=== PATIENT | male | born 1955 | race Caucasian/White ===

== ENCOUNTER → 2017-06-10 | Outpatient (CLI) | payer MEDICARE, BC ==
--- NOTE | 2017-06-10 15:04 | XR ---
EXAMINATION TYPE: XR ankle complete LT DATE OF EXAM: 06/10/2017 CLINICAL HISTORY: Left ankle pain and open wound for 1 week TECHNIQUE: Frontal, lateral and oblique images of the left ankle are obtained. COMPARISON: None. FINDINGS: There is no acute fracture/dislocation evident in the left ankle. 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 Atherosclerosis is seen of the anterior and posterior tibial arteries. 2 cortical fixation screws are present over the medial malleolus without surroundin g lucency or hardware fracture. Soft tissue undulation and diffuse tissue swelling within the medial malleolus and medial soft tissues overlying the distal tibia are seen. Cortical erosion is difficult to evaluate for areas postsurgical change of the medial malleolus is present. There is narrowing of t he tibiotalar joint space with qikz-mr-[id number] articulation of the medial talar dome creating some chond ral cystic change and sclerosis. Hindfoot instability is questioned. IMPRESSION: 1. Soft tissue swelling and superficial skin ulceration over the medial malleolus. Evaluation for cor tical irregularity and erosion as sequela of osteomyelitis is difficult to evaluate for as there is c ortical irregularity from underlying postsurgical change. Three-phase bone scan could be performed if there is concern for approximately this. 2. Medial tibiotalar complete joint space loss with sclerosis and suspected hindfoot instability. 3. 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 Evidence of atherosclerosis also m ay relate to vascular insufficiency.
== END | disposition home or self-care (01) ==
LOC: RADXRMAIN 14:24
PROVIDERS: ATTEND Family Medicine
DX: L97.321 Non-pressure chronic ulcer of left ankle limited to breakdown of skin (principal); M86.672 Other chronic osteomyelitis, left ankle and foot; M85.872 Other specified disorders of bone density and structure, left ankle and foot; I70.202 Unspecified atherosclerosis of native arteries of extremities, left leg; I77.1 Stricture of artery; M79.89 Other specified soft tissue disorders

== ENCOUNTER → 2017-06-29 | Outpatient (CLI) | payer MEDICARE, BC ==
--- NOTE | 2017-06-29 11:34 | XR ---
EXAMINATION TYPE: XR lumbar spine 2 or 3V DATE OF EXAM: 06/29/2017 COMPARISON: NONE HISTORY: 61-year-old male chronic back pain, back surgery 40 years ago. TECHNIQUE: Reviews FINDINGS: Post surgical changes of L3-S1 posterior lumbar fusion with corresponding laminectomies. Bilateral il iac vessel stents are also present. There is advanced discogenic degenerative change above the fusion at L2-L3 weighted grade 1 retrolist hesis. Prominent disc vacuum with endplate sclerosis and endplate spurring is present here. Vertebral body heights are preserved. IMPRESSION: 1. Status post L3-S1 posterior lumbar fusion with laminectomies. 2. Advanced disc/endplate degenerative change above the fusion at L2/L3 with grade 1 retrolisthesis. 3. No vertebral compression collapse.
== END ==
LOC: RADXRMAIN 10:06
PROVIDERS: ATTEND Family Medicine
DX: M43.16 Spondylolisthesis, lumbar region (principal); M51.36 Other intervertebral disc degeneration, lumbar region; Z98.1 Arthrodesis status
CPT/HCPCS: 72100

== ENCOUNTER 2017-09-30 10:59 | Day surgery (SDC) | payer MEDICARE, BC ==
[2017-09-28 16:11] VITALS: BMI 19.8
[~2017-09-30 10:59] MED LIST: ALPRAZolam 0.25 MG TAB PO PRN; ASPIRIN 325 MG TAB PO STA; SODIUM CHLORIDE 0.9% 1,000 ML in EMPTY BAG 1 BAG IV ONE
[2017-09-30] MEDS ORDERED: HYDROmorphone 1 MG/ML 1 ML SYRINGE IVP STA (11:59)
[2017-09-30] MEDS ORDERED: HYDROmorphone 1 MG/ML 1 ML SYRINGE ONE (12:00)
[2017-09-30] MEDS: MIDAZOLAM 2 MG/2 ML VIAL IVP ONE ×2 (12:48→13:54)
[2017-09-30] MEDS ORDERED: LIDOCAINE 2% INJ 20 MG/ML SQ ONE (12:54)
[2017-09-30] MEDS: HEPARIN SODIUM 1,000 UN/ML (10ML VL) IV ONE ×2 (12:57→13:37)
[2017-09-30] MEDS: fentaNYL (PF) 50 MCG/ML 2 ML AMP IV ONE ×2 (13:59→14:44)
[2017-09-30] MEDS ORDERED: HEPARIN SODIUM 1,000 UN/ML (10ML VL) IV ONE (14:39)
[2017-09-30] MEDS: NITROGLYCERIN 1000MCG/10ML SYRINGE INTRAARTER ONE ×2 (14:44→14:49)
[2017-09-30] MEDS ORDERED: niCARdipine Syringe (1,000 mcg/10 mL) INTRAARTER ONE (14:49)
[2017-09-30] MEDS ORDERED: CLOPIDOGREL 75 MG TAB PO ONE (14:51)
[2017-09-30] MEDS ORDERED: IODIXANOL 320 MG/ML 100 ML INTRAARTER ONE (14:52)
[2017-09-30] MEDS ORDERED: SODIUM CHLORIDE 0.9% 1,000 ML IV SCH (15:15)
[2017-09-30] MEDS: HYDROcodone/APAP 10-325MG 1 EACH TAB PO PRN ×2 (15:35→21:18)
--- NOTE | 2017-09-30 16:20 | LTR ---
To: Dr. David Woodson and Dr. Connie Bearden Regarding: Carmita Tineo (51) Dear Dr. Woodson and Dr. Bearden, Mr. Carmita Tineo underwent successful balloon angioplasty and stenting of the left superficial femoral artery with good angiographic results and without any complication. The patient is staying overnight and is going to be discharged home tomorrow morning. I want to thank both of your for allowing me to participate in his care. Sincerely, Hector Hoewll MD MMCAMMIE / EDWARDN: [id number] /
--- NOTE | 2017-09-30 16:42 | AN ---
ANGIOGRAPHY REPORT DATE OF SERVICE: September 30, 2017 PERFORMING PHYSICIAN: Hector Howell MD, marketing compliance manager. PROCEDURE PERFORMED: 1. Selective left [id number]-[id number]-wbkr angiogram. 2. Selective left popliteal angiogram. 3. Selective left SFA angiogram. 4. An atherectomy of the left SFA using the orbital atherectomy device "CSI.". 5. Successful balloon angioplasty of the proximal and distal left SFA. 6. Stenting of the mid left SFA using Zilver PTX stent with good angiographic results. 7. Intravascular ultrasound of the left SFA. INDICATION: This is a pleasant 61-year-old gentleman who was diagnosed with critical limb ischemia and he follows with [facility]. He underwent a peripheral angiogram which revealed occluded left SFA in the midportion. He was brought today to undergo an intervention. APPROACH: Right common femoral artery. COMPLICATION: None. LEVEL OF SEDATION: Moderate with sedation length of 2 hours. PROCEDURE DESCRIPTION: After obtaining informed consent, the patient was brought to the cardiac dye lab technician. The right common femoral artery was cannulated using micropuncture technique, the micropuncture wire passed easily. Then I placed a 6-Cambodian sheath in the right common femoral artery, which was an 11 cm sheath. After that, anticoagulation was initiated using heparin and the patient was given weight-based heparin. Continuous monitoring ACT throughout the procedure was done as well. After that I did select the left SFA using an 035 advantage wire with a 5-Cambodian rim catheter. Subsequently I did exchange my 11 cm 6-Cambodian sheath into 55 cm 6-Cambodian sheath using the Advantage wire. After that I did selective left zmhcu-frg-movs angiogram, selective left popliteal angiogram, and selective left SFA angiogram. Subsequently I did cross the chronic total occlusion of the mid left SFA using 014 wire with the backup support of 014 catheter. After that, I did exchange my 014 wire into an 014 ViperWire preparing for rotational atherectomy using the orbital atherectomy device from [employer]. I did 3 runs of rotational atherectomy in the mid, distal, and proximal SFA. I did the atherectomy on the low, medium, and high speeds. After that I did balloon angioplasty of the left SFA using initially 4-0 and then 5-0 AngioSculpt balloon. The following angiogram revealed significant dissection involving the mid left SFA which I documented that using intravascular ultrasound. I decided to stent that segment so I did deploy two Zilver PTX stent. The 1st stent was 7 0 x 120 and the second stent was 7 0 x 80 mm stents. Both stents were deployed under ultrasound guidance, under fluoro guidance and I post dilated the stent using 6 mm balloon. The following angiogram of the stented segment showed good angiographic results. For the distal left SFA, I did balloon angioplasty using a 5 mm AngioSculpt balloon and the following angiogram showed good angiographic results with almost 0 residual disease. For the proximal left SFA including the ostium after balloon angioplasty, the following angiogram showed residual disease about 30-40% and that disease involving the ostial left SFA. Also the angiogram showed severe disease involving below the knee including the AT and PT, but the flow was definitely better compared to before. After that, the procedure was completed and I did exchange my 55 cm 6-Cambodian sheath into 11 cm 6-Cambodian sheath using a 035 advantage wire. At that point, the procedure was completed without any complication. POSTPROCEDURE MANAGEMENT: 1. Surveillance Doppler of the left SFA including the proximal and ostial left SFA. 2. If the wound is not healing in the next few weeks, I would consider proceeding with CLEAN UP WORKER of the proximal left SFA as well as of the PT. 3. Dual anti-platelet therapy. 4. Follow up with the patient. MMODL / IJN: [id number] /
[2017-09-30] MEDS ORDERED: ATROPINE SULFATE 0.1 MG/ML 10ML SYRINGE ONE (19:28)
[2017-09-30] MEDS ORDERED: ATORVASTATIN 10 MG TAB PO SCH (21:00)
[2017-09-30] MEDS ORDERED: hydrOXYzine HCL 25 MG TAB PO SCH (21:00)
[2017-10-01] MEDS: HYDROcodone/APAP 10-325MG 1 EACH TAB PO PRN ×3 (01:22→11:51)
[2017-10-01 06:27] LABS: Anisocytosis Slight; Basophils % (A) 1 %; CHCM 32.6; Eosinophils # (A) 0.4 k/uL (0-0.7); Eosinophils % (A) 8 %; HCT 32.6 % (39.0-53.0); HDW 3.37; HGB 10.2 gm/dL (13.0-17.5); Hypochromasia Slight; Luc # (Auto) 0.08; Luc % (Auto) 1; Lymphocytes # (A) 0.7 k/uL (1.0-4.8); Lymphocytes % (A) 13 %; MCHC 31.2 g/dL (31.0-37.0); MCV 96.1 fL (80.0-100.0); Monocytes # (A) 0.2 k/uL (0-1.0); Monocytes % (A) 4 %; Neutrophils # (A) 4.1 k/uL (1.3-7.7); Neutrophils % (A) 73 %; RBC 3.39 m/uL (4.30-5.90); RDW 16.7 % (11.5-15.5); WBC 5.7 k/uL (3.8-10.6); WBC (Perox) 5.86
[2017-10-01 06:35] LABS: Anion Gap 10 mmol/L; Blood Urea Nitrogen 15 mg/dL (9-20); Calcium 9.1 mg/dL (8.4-10.2); Carbon Dioxide 13 mmol/L (22-30); Chloride 119 mmol/L (98-107); Glucose 101 mg/dL (74-99); Non-African American GFR(MDRD) >60 (>60 ml/min/1.73 sqM); Potassium 4.3 mmol/L (3.5-5.1); Sodium 142 mmol/L (137-145)
[2017-10-01] MEDS ORDERED: HYDROCORTISONE 1% OINT 28.35 GM TUBE TOPICAL SCH (09:00)
[2017-10-01] MEDS ORDERED: ASPIRIN 81 MG PO SCH (09:00)
[2017-10-01] MEDS ORDERED: DONEPEZIL 5 MG TAB PO SCH (09:00)
[2017-10-01] MEDS ORDERED: FAMOTIDINE 20 MG TAB PO SCH (09:00)
[2017-10-01] MEDS ORDERED: LORATADINE 10 MG TAB PO SCH (09:00)
[2017-10-01] MEDS ORDERED: NON-FORMULARY DRUG (Flaxseed Oil [Omega-3 Flaxseed Oil] 1,000 MG) PO SCH (09:00)
[2017-10-01] MEDS ORDERED: [UNRECOGNIZED DRUG - OTHER] TOPICAL SCH (09:00)
[2017-10-01] MEDS ORDERED: MELOXICAM 7.5 MG TAB PO SCH (09:00)
[2017-10-01] MEDS ORDERED: CITALOPRAM HYDROBROMIDE 20 MG TAB PO SCH (09:00)
[2017-10-01] MEDS ORDERED: LISINOPRIL 10 MG TAB PO SCH (09:00)
[2017-10-01] MEDS ORDERED: CLOPIDOGREL 75 MG TAB PO SCH (09:00)
[2017-10-01] MEDS ORDERED: CALCIPOTRIENE TOPICAL SCH (09:00)
[2017-10-01] MEDS ORDERED: ALLOPURINOL 300 MG TAB PO SCH (09:00)
[2017-10-01 09:37] VITALS: TEMP 96.9
[2017-10-01 11:30] VITALS: BP 143/67; PULSE 61; RESP 20
--- NOTE | 2017-10-02 22:53 | DS ---
DISCHARGE SUMMARY DATE OF ADMISSION: September 30, 2017. DATE OF DISCHARGE: October 01, 2017 BRIEF HISTORY: This is a pleasant 61-year-old gentleman who was having critical limb ischemia involving the left foot. A few weeks ago, he underwent a peripheral angiogram which revealed subtotally occluded left SFA. He was admitted to the hospital yesterday and underwent atherectomy, balloon angioplasty, and stenting of the left SFA with good angiographic results and without any complication. On follow up with the patient the following day, he is doing good and he is asymptomatic. He denies having any chest pain or discomfort or difficulty breathing. The patient is going to be discharged home on dual anti-platelet therapy and I will follow up with the patient in the office next week. MMODL / IJN: [id number] /
--- NOTE | 2017-10-06 08:50 | IR ---
Fluoroscopy HISTORY: Peripheral vascular occlusive disease 32.4 minutes fluoroscopy time supplied to the referring clinician. 1975 intraoperative C-arm images document the procedure. See dictated report from cardiology.
== END 2017-10-01 12:04 | disposition home or self-care (01) ==
LOC: CATHCVL 10:59 → 6SEL 16:27 → CATHCVL 10-01 12:04
PROVIDERS: ATTEND Internal Medicine Interventional Cardiology
DX: I70.213 Atherosclerosis of native arteries of extremities with intermittent claudication, bilateral legs (principal); Z95.820 Peripheral vascular angioplasty status with implants and grafts; E78.2 Mixed hyperlipidemia; Z95.5 Presence of coronary angioplasty implant and graft; Z87.891 Personal history of nicotine dependence; A49.02 Methicillin resistant Staphylococcus aureus infection, unspecified site; M06.9 Rheumatoid arthritis, unspecified; I10 Essential (primary) hypertension; Z79.02 Long term (current) use of antithrombotics/antiplatelets; Z79.82 Long term (current) use of aspirin; Z79.899 Other long term (current) drug therapy
CPT/HCPCS: 37227; 37252; 80048; 85025; C1894 ×2; C1714; C1769 ×6; C1725 ×3; C1753; C1874 ×2; J2001; J2250; Q9967; J3010; J1644; J1170

== ENCOUNTER → 2017-11-16 | Outpatient (CLI) | payer MEDICARE, BC ==
[2017-11-12 13:30] VITALS: BMI 19.2
[2017-11-16 13:22] VITALS: BP 121/53; PULSE 74; RESP 16; TEMP 97.4
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
== END | disposition home or self-care (01) ==
LOC: PNWHC3 12:43
PROVIDERS: ATTEND Specialist
DX: G89.29 Other chronic pain (principal); M54.5 Low back pain; M96.1 Postlaminectomy syndrome, not elsewhere classified; M47.816 Spondylosis without myelopathy or radiculopathy, lumbar region; M46.86 Other specified inflammatory spondylopathies, lumbar region; J44.9 Chronic obstructive pulmonary disease, unspecified; K21.9 Gastro-esophageal reflux disease without esophagitis; M19.90 Unspecified osteoarthritis, unspecified site; M06.9 Rheumatoid arthritis, unspecified; F17.200 Nicotine dependence, unspecified, uncomplicated; M10.9 Gout, unspecified; I10 Essential (primary) hypertension; I25.10 Atherosclerotic heart disease of native coronary artery without angina pectoris; Z98.1 Arthrodesis status; Z79.891 Long term (current) use of opiate analgesic; Z86.718 Personal history of other venous thrombosis and embolism; Z98.890 Other specified postprocedural states; Z95.5 Presence of coronary angioplasty implant and graft; Z79.82 Long term (current) use of aspirin; Z79.899 Other long term (current) drug therapy; Z79.02 Long term (current) use of antithrombotics/antiplatelets
CPT/HCPCS: 99211

== ENCOUNTER → 2017-12-01 | Outpatient (CLI) | payer MEDICARE ==
[2017-12-01 11:22] LABS: Anion Gap 13 mmol/L; Blood Urea Nitrogen 19 mg/dL (9-20); Carbon Dioxide 17 mmol/L (22-30); Chloride 111 mmol/L (98-107); Potassium 4.7 mmol/L (3.5-5.1); Sodium 141 mmol/L (137-145)
[2017-12-01 11:47] LABS: HCT 33.6 % (39.0-53.0); HGB 11.1 gm/dL (13.0-17.5); Hypochromasia Slight; MCH 32.5 pg (25.0-35.0); MCHC 32.9 g/dL (31.0-37.0); MCV 98.7 fL (80.0-100.0); Macrocytosis Slight; Mean Platelet Volume 6.8; Platelet Count 325 k/uL (150-450); RDW 15.3 % (11.5-15.5)
== END | disposition home or self-care (01) ==
LOC: LABPAT 10:33
PROVIDERS: ATTEND Internal Medicine Interventional Cardiology
DX: Z01.812 Encounter for preprocedural laboratory examination (principal); I73.9 Peripheral vascular disease, unspecified
CPT/HCPCS: 36415; 80051; 82565; 84520; 85027

== ENCOUNTER → 2017-12-02 | Day surgery (SDC) | payer BC, MEDICARE ==
[2017-12-01 08:31] VITALS: BMI 19.8
[~2017-12-02] MED LIST changes: -ALPRAZolam 0.25 MG TAB PO PRN; -ASPIRIN 325 MG TAB PO STA; +HYDROcodone/APAP 10-325MG 1 EACH TAB PO ONE
[2017-12-02 15:40] VITALS: BP 110/56
== END ==
LOC: CATHCVL 12:48
PROVIDERS: ATTEND Internal Medicine Interventional Cardiology
DX: I73.9 Peripheral vascular disease, unspecified (principal); Z53.9 Procedure and treatment not carried out, unspecified reason

== ENCOUNTER 2017-12-09 09:57 | Day surgery (SDC) | payer MEDICARE ==
[2017-12-07 10:34] VITALS: BMI 19.8
[~2017-12-09 09:57] MED LIST changes: +ALPRAZolam 0.25 MG TAB PO PRN; -HYDROcodone/APAP 10-325MG 1 EACH TAB PO ONE
[2017-12-09] MEDS ORDERED: LIDOCAINE 2% INJ 20 MG/ML SQ ONE (12:59)
[2017-12-09] MEDS: MORPHINE SULFATE 4 MG/ML SYRINGE IVP ONE ×2 (13:00→13:17)
[2017-12-09] MEDS: MIDAZOLAM 2 MG/2 ML VIAL IVP ONE ×2 (13:01→14:14)
[2017-12-09] MEDS: HEPARIN SODIUM 1,000 UN/ML (10ML VL) IV ONE ×2 (13:04→13:55)
[2017-12-09] MEDS: fentaNYL (PF) 50 MCG/ML 2 ML AMP IVP ONE ×3 (13:54→14:26)
[2017-12-09] MEDS: NITROGLYCERIN 1000MCG/10ML SYRINGE INTRAARTER ONE ×4 (14:07→14:29)
[2017-12-09] MEDS: niCARdipine Syringe (1,000 mcg/10 mL) INTRAARTER ONE ×2 (14:11→14:26)
[2017-12-09] MEDS ORDERED: CLOPIDOGREL 75 MG TAB PO ONE (14:54)
[2017-12-09] MEDS ORDERED: IODIXANOL 320 MG/ML 100 ML INTRAARTER ONE (14:58)
[2017-12-09] MEDS ORDERED: SODIUM CHLORIDE 0.9% 1,000 ML IV SCH (15:15)
[2017-12-09] MEDS: HYDROcodone/APAP 10-325MG 1 EACH TAB PO PRN ×2 (15:45→21:14)
--- NOTE | 2017-12-09 16:57 | LTR ---
December 09, 2017. Dear Dr. Woodson: Mr. Carmita Tineo underwent successful balloon angioplasty of the left femoral artery and left posterior tibial artery with good angiographic results and without any complication. Thank you for allowing me to participate in his care and please do not hesitate to call if you have any question or concern. MMODL / IJN: [id number] /
--- NOTE | 2017-12-09 17:00 | AN ---
ANGIOGRAPHY REPORT DATE OF SERVICE: December 09, 2008 PERFORMING PHYSICIAN: Hector Howell MD, flexible shaft winder. PROCEDURE PERFORMED: 1. Selective left csntq-iyq-qcfy angiogram. 2. Selective left popliteal angiogram. 3. Selective left SFA angiogram. 4. Selective left posterior tibial angiogram. 5. An atherectomy of the left posterior tibial artery using the orbital atherectomy device from [employer]. 6. Successful balloon angioplasty of the left posterior tibial artery using 2.5 x 200 mm balloon with good angiographic results. 7. Successful stenting of the left SFA using a 7.0 x 60 mm Zilver PTX with good angiographic results. INDICATION: This is a pleasant 61-year-old gentleman who is known to have peripheral arterial disease and known to have stenting of the left iliac and left SFA was struggling with critical limb ischemia and nonhealing ulcer involving the left heel. He sees Dr. Bearden at the wound clinic. I opened the left SFA on him and the ulcer was healing slowly but did not heal completely. In view of that, we decided to pursue with an intervention on the left posterior tibial. APPROACH: Right common femoral artery. COMPLICATION: None. LEVEL OF SEDATION: Moderate with sedation length of 1 hour and 51 minutes. PROCEDURE DESCRIPTION: After obtaining informed consent, the patient was brought to the cardiac clinical laboratory scientist. The right common femoral artery was cannulated using micropuncture technique, the micropuncture wire passed easily then I placed a 6-Rwandan sheath in the right common femoral artery. After that anticoagulation was initiated using heparin and the patient was given a weight-based heparin with continuous monitoring the ACT throughout the procedure. Subsequently, I did select the left SFA using a 5-Rwandan rim catheter with the backup support of Advantage wire. After that, I did exchange my 11 cm 6-Rwandan sheath into 55 cm 6-Rwandan sheath using the Advantage wire. The tip of the sheath was positioned in the left common femoral artery. Subsequently I did selective left pxcqg-mbv-vohq angiogram, selective left popliteal angiogram, and selective left SFA angiogram. After that, I did decide to intervene on the left posterior tibial artery. Please see a separate paragraph for that. Then I did intervene on the left SFA. Please see selected separate paragraph for that. INFORMATION SECURITY RISK ANALYST OF THE LEFT POSTERIOR TIBIAL ARTERY: I did wire the left posterior tibial artery using a 014 wire and then I did exchange my 014 wire into the ViperWire preparing for orbital atherectomy using a 14 CXI catheter. After that, I did multiple runs of orbital atherectomy of the left posterior tibial artery. Then I did balloon angioplasty using 2.5 x 200 mm balloon will the whole posterior tibial artery distally, in the mid, and proximally was ballooned. The following angiogram showed good angiographic results. For the left SFA, I did balloon angioplasty using 6 mm balloon and there was dissection involving the proximal left SFA which I decided to cover with a stent so I did deploy 7.0 x 60 mm Zilver PTX where the stent was positioned under fluoroscopy guidance and deployed under fluoroscopy guidance as well. After that, I ballooned the stent using 6 mm balloon. The following angiogram showed good angiographic results. The procedure was completed without any complication. POSTPROCEDURE MANAGEMENT: 1. Dual anti-platelet therapy. 2. Risk factors modifications. 3. Follow up with the patient. BERENICE / SATISH: [id number] /
[2017-12-09] MEDS ORDERED: ATROPINE SULFATE 0.1 MG/ML 10ML SYRINGE ONE (18:15)
[2017-12-09] MEDS ORDERED: MORPHINE SULFATE 4 MG/ML SYRINGE IVP STA (18:42)
[2017-12-09] MEDS ORDERED: hydrOXYzine HCL 25 MG TAB PO SCH (21:00)
[2017-12-10] MEDS: HYDROcodone/APAP 10-325MG 1 EACH TAB PO PRN ×2 (02:30→08:56)
[2017-12-10] MEDS ORDERED: MORPHINE SULFATE 4 MG/ML SYRINGE IVP ONE (04:36)
[2017-12-10 04:51] VITALS: RESP 18
[2017-12-10] MEDS ORDERED: CITALOPRAM HYDROBROMIDE 20 MG TAB PO SCH (09:00)
[2017-12-10] MEDS ORDERED: CALCIPOTRIENE TOPICAL SCH (09:00)
[2017-12-10] MEDS ORDERED: DONEPEZIL 5 MG TAB PO SCH (09:00)
[2017-12-10] MEDS ORDERED: FAMOTIDINE 20 MG TAB PO SCH (09:00)
[2017-12-10] MEDS ORDERED: ALLOPURINOL 300 MG TAB PO SCH (09:00)
[2017-12-10] MEDS ORDERED: MELOXICAM 7.5 MG TAB PO SCH (09:00)
[2017-12-10] MEDS ORDERED: LORATADINE 10 MG TAB PO SCH (09:00)
[2017-12-10] MEDS ORDERED: CLOPIDOGREL 75 MG TAB PO SCH (09:00)
[2017-12-10] MEDS ORDERED: ASPIRIN 81 MG PO SCH (09:00)
[2017-12-10] MEDS ORDERED: NON-FORMULARY DRUG (Flaxseed Oil [Omega-3 Flaxseed Oil] 1,000 MG) PO SCH (09:00)
[2017-12-10] MEDS ORDERED: LISINOPRIL 10 MG TAB PO SCH (09:00)
[2017-12-10] MEDS ORDERED: BETAMETHASONE TOPICAL SCH (09:00)
[2017-12-10 09:30] VITALS: BP 125/58; PULSE 88; TEMP 98.5
--- NOTE | 2017-12-10 10:13 | IR ---
EXAMINATION TYPE: IR stent intravas non coronary DATE OF EXAM: 12/09/2017 CLINICAL HISTORY: Left leg pain. Peripheral vascular disease. TECHNIQUE: Fluoroscopy. COMPARISON: None. FINDINGS: Fluoroscopic guidance was provided during lower extremity angiogram with stent insertion p rocedure performed by Dr. Howell. A total of 38.5 minutes of fluoroscopic time was utilized during the procedure and 16 cine runs are acquired. Please refer to procedure note for further details as I was not present nor performed procedure. IMPRESSION: As Above.
--- NOTE | 2017-12-10 13:16 | DS ---
DISCHARGE SUMMARY DATE OF ADMISSION: 12/09/2017. DATE OF DISCHARGE: 12/10/2017 BRIEF HISTORY: This is a pleasant 61-year-old gentleman who was admitted to the hospital yesterday and underwent successful CLINICAL MICROBIOLOGIST of the left posterior tibial artery along with successful balloon angioplasty and stenting of the left SFA. The procedure was performed from the right groin, which is soft and nontender and without any bruises. The patient is going to be discharged home on dual anti-platelet therapy and I will follow up with the patient in the office as an outpatient. MMODL / IJN: [id number] /
[2017-12-10] MEDS ORDERED: ATORVASTATIN 40 MG TAB PO SCH (21:00)
--- NOTE | 2017-12-15 11:39 | CDI ---
Outpatient Documentation Clarification Form Date: 12/15/17 CDS/Tear Down Matcher Name: Chelle Robert Phone: If any questions, call Eva Hatfield Washing Machine Operator at [phone] Patient Name: Carmita Tineo Admit Date: 12/09/17 Discharge Date: 12/09/17 ATTENTION: The [facility] Coding Staff appreciate your assistance in clarifying documentation. Please respond to the clarification below the line at the bottom and electronically sign. The [facility] Coding staff will review the response and follow-up if needed. Please note: Queries are made part of the Legal Health Record. If you have any questions, please contact the Washing Machine Operator. Dear Dr. Howell In order to support the procedure, we need a more specific diagnosis for this encounter. The operative report states peripheral arterial disease. The HPI on the H&P states disease involving the left SFA and left posterior tibial. Can you please be clearer in regards to the cause and specifics of the disease? Options may include atherosclerosis and may be with our without intermittent claudication, or rest pain, or gangrene, or ulceration. Please be as specific as possible. There is also mention of ischemia and left heel ulcer and it not clear if the heel ulcer is due to the SFA /posterior tibial disease. Any clarification would be appreciated. Thank you for your kind consideration. MTDD
--- NOTE | 2018-01-05 13:51 | CDI ---
Outpatient Documentation Clarification Form Date: 01/05/18 CDS/Vessel Master Name: Chelle Robert Phone: If any questions, call Eva Hatfield Ambulance Officer at [phone] Patient Name: Carmita Tineo Admit Date: 12/09/17 Discharge Date: 12/09/17 ATTENTION: The [facility] Coding Staff appreciate your assistance in clarifying documentation. Please respond to the clarification below the line at the bottom and electronically sign. The [facility] Coding staff will review the response and follow-up if needed. Please note: Queries are made part of the Legal Health Record. If you have any questions, please contact the Ambulance Officer. Dear Dr. Howell In order to support the procedure, we need a more specific diagnosis for this encounter. The operative report states peripheral arterial disease. The HPI on the H&P states disease involving the left SFA and left posterior tibial. Can you please be clearer in regards to the cause and specifics of the disease? Options may include atherosclerosis and may be with our without intermittent claudication, or rest pain, or gangrene, or ulceration. Please be as specific as possible. There is also mention of ischemia and left heel ulcer and it not clear if the heel ulcer is due to the SFA /posterior tibial disease. Any clarification would be appreciated. Thank you for your kind consideration. MTDD
--- NOTE | 2018-01-12 15:41 | AN ---
ANGIOGRAPHY REPORT ADDENDUM: DATE OF SERVICE: 12/09/2017 The procedure was a peripheral procedure and please adjust indication to be: Critical limb ischemia with resting pain and ulceration on the left lower extremity. MMODL / IJN: [id number] /
== END 2017-12-10 09:55 | disposition home or self-care (01) ==
LOC: CATHCVL 09:57 → 6SEL 14:50 → CATHCVL 12-10 09:55
PROVIDERS: ATTEND Internal Medicine Interventional Cardiology
DX: I70.244 Atherosclerosis of native arteries of left leg with ulceration of heel and midfoot (principal); L97.429 Non-pressure chronic ulcer of left heel and midfoot with unspecified severity; B95.62 Methicillin resistant Staphylococcus aureus infection as the cause of diseases classified elsewhere; Z95.820 Peripheral vascular angioplasty status with implants and grafts; M06.9 Rheumatoid arthritis, unspecified; I25.10 Atherosclerotic heart disease of native coronary artery without angina pectoris; Z95.5 Presence of coronary angioplasty implant and graft; I42.9 Cardiomyopathy, unspecified; I10 Essential (primary) hypertension; E78.2 Mixed hyperlipidemia; F17.210 Nicotine dependence, cigarettes, uncomplicated; Z79.01 Long term (current) use of anticoagulants; Z79.1 Long term (current) use of non-steroidal anti-inflammatories (NSAID); Z79.82 Long term (current) use of aspirin; Z79.899 Other long term (current) drug therapy
CPT/HCPCS: 37227; C1894 ×2; C1769 ×5; C1725 ×2; C1714; C1874; J2001; J2250; J2270 ×2; Q9967; J3010; J1644

== ENCOUNTER → 2018-03-06 | Outpatient (CLI) | payer MEDICARE ==
--- NOTE | 2018-03-06 14:18 | MR ---
EXAMINATION TYPE: MR lumbar spine wo/w con DATE OF EXAM: 03/06/2018 COMPARISON: NONE HISTORY: Spondylosis w/o myelopathy/radiculopathy TECHNIQUE: Multiplanar, multisequence images of the lumbar spine were acquired utilizing [address] gadolinium contrast. FINDINGS: There remains a grade 1 retrolisthesis of L2 on L3. Otherwise there is stable postsurgical alignment of the lumbar spine with fixation from L3 through S1 . There is minimal height loss (less t noel 10%) of the L2 vertebral body without edema indicating a chronic compression deformity. Remainder the vertebral body heights are maintained within the lumbar spine. Conus medullaris terminates at L1 -L2. Susceptibility artifact from postsurgical change slightly limits evaluation of the lower lumbar spine. At the postsurgical levels there is absence of the posterior elements. Nonenhancing bilateral T2 hyperintense and T1 hypointense probable renal cysts are seen although the left upper pole renal lesion is more suspicious adenopathy is it is only mildly T2 hyperintense. This measures 9 mm and warrants further characterization. L1-L2: There is a very small right paracentral disc herniation superimposed upon a broad-based disc b ulge. There is no significant spinal canal stenosis or neural foraminal narrowing at this level. L2-L3: There is a small central disc herniation superimposed upon a broad-based disc bulge that in co mbination with facet arthropathy creating moderate bilateral neural foraminal narrowing and mild spin al canal stenosis. L3-L4: Postsurgical changes with partial resection of the posterior elements. Evidence of prior parti al discectomy with mild bilateral neural foraminal narrowing attributable to facet arthropathy. No sp inal canal stenosis. L4-L5: Partial discectomy has been performed. Partial surgical fusion of the L4 and L5 vertebral bodi es is seen. Evaluation of the neural foramen are limited from surrounding susceptibility artifact. Ri ght neural foramen is patent and left appears obscured. No spinal canal stenosis. L5-S1: There is a broad-based disc bulge resulting in mild bilateral neural foraminal narrowing. No s cynthia canal stenosis. Resection of the posterior elements is seen. On the subcutaneous soft tissues there is fibrosis at the level of S1 on T1 axial nonfat sat image 1 that enhances on postcontrast image 1. However this does not extend to have mass effect on the epidur al space or right S1 nerve root. IMPRESSION: 1. Persistent grade 1 retrolisthesis of L2 on L3 in comparison to the prior radiographs dated 06/29/20 17 without interval worsening. 2. Small central disc herniation at L2-3 that examination with thinner degenerative disc disease crat ing moderate bilateral neural foraminal narrowing and mild spinal canal stenosis. 3. Bilateral probable renal cysts and left upper pole renal lesion that does appear to represent a si mple cyst warranting further characterization with renal ultrasound. 4. Postsurgical changes as described above with no recurrent spinal canal stenosis. 5. No evidence of epidural fibrosis. 6. Mild chronic appearing wedge compression deformity of the L2 vertebral body with vertebral body he ight loss of less than 10%. 7. Very small right paracentral disc herniation at L1-L2 without spinal canal stenosis or neural fora nichole narrowing.
== END | disposition home or self-care (01) ==
LOC: RADMRIMAIN 10:46
PROVIDERS: ATTEND Specialist
DX: M48.061 Spinal stenosis, lumbar region without neurogenic claudication (principal); M99.73 Connective tissue and disc stenosis of intervertebral foramina of lumbar region; M51.26 Other intervertebral disc displacement, lumbar region; M43.16 Spondylolisthesis, lumbar region; M51.36 Other intervertebral disc degeneration, lumbar region; G95.89 Other specified diseases of spinal cord; G89.29 Other chronic pain
CPT/HCPCS: 82565; 72158; A9581

== ENCOUNTER → 2018-07-05 | Outpatient (CLI) | payer MEDICARE ==
[2018-07-05 13:03] LABS: HCT 38.7 % (39.0-53.0); HGB 11.9 gm/dL (13.0-17.5); Hypochromasia Moderate; MCH 28.8 pg (25.0-35.0); MCHC 30.9 g/dL (31.0-37.0); MCV 93.5 fL (80.0-100.0); Mean Platelet Volume 6.8; Platelet Count 361 k/uL (150-450); RBC 4.14 m/uL (4.30-5.90)
[2018-07-05 13:08] LABS: Anion Gap 8 mmol/L; Blood Urea Nitrogen 25 mg/dL (9-20); Carbon Dioxide 21 mmol/L (22-30); Chloride 107 mmol/L (98-107); Potassium 5.7 mmol/L (3.5-5.1); Sodium 136 mmol/L (137-145)
== END | disposition home or self-care (01) ==
LOC: LABPAT 11:22
PROVIDERS: ATTEND Internal Medicine Interventional Cardiology
DX: Z01.812 Encounter for preprocedural laboratory examination (principal); I10 Essential (primary) hypertension; E78.1 Pure hyperglyceridemia; I70.212 Atherosclerosis of native arteries of extremities with intermittent claudication, left leg
CPT/HCPCS: 36415; 80051; 82565; 84520; 85027

== ENCOUNTER → 2018-07-08 | Day surgery (SDC) | payer MEDICARE ==
[2018-07-05 11:04] VITALS: BMI 19.5
[~2018-07-08] MED LIST changes: +ASPIRIN 325 MG TAB PO STA; +HYDROcodone/APAP 10-325MG 1 EACH TAB PO PRN
[2018-07-08 07:02] VITALS: BP 139/62; PULSE 64; RESP 18; TEMP 98
== END ==
LOC: CATHCVL 06:22
PROVIDERS: ATTEND Internal Medicine Interventional Cardiology
DX: Z53.9 Procedure and treatment not carried out, unspecified reason (principal); E78.1 Pure hyperglyceridemia
CPT/HCPCS: 84132

== ENCOUNTER → 2018-07-09 | Outpatient (CLI) | payer MEDICARE ==
[2018-07-09 14:26] LABS: Anion Gap 9 mmol/L; Blood Urea Nitrogen 22 mg/dL (9-20); Calcium 9.2 mg/dL (8.4-10.2); Carbon Dioxide 19 mmol/L (22-30); Chloride 111 mmol/L (98-107); Glucose 92 mg/dL (74-99); Potassium 4.8 mmol/L (3.5-5.1); Sodium 139 mmol/L (137-145)
== END | disposition home or self-care (01) ==
LOC: LABWHC1 12:52
PROVIDERS: ATTEND Nurse Practitioner Adult Health
DX: E87.5 Hyperkalemia (principal); I10 Essential (primary) hypertension
CPT/HCPCS: 36415; 80048

== ENCOUNTER → 2018-07-29 | Outpatient (CLI) | payer MEDICARE ==
[2018-07-29 11:20] LABS: Anisocytosis Slight; HCT 38.9 % (39.0-53.0); HGB 12.1 gm/dL (13.0-17.5); Hypochromasia Slight; MCH 29.2 pg (25.0-35.0); MCV 94.2 fL (80.0-100.0); Platelet Count 272 k/uL (150-450); RBC 4.13 m/uL (4.30-5.90); RDW 16.6 % (11.5-15.5); WBC 7.7 k/uL (3.8-10.6)
[2018-07-29 11:42] LABS: Anion Gap 7 mmol/L; Blood Urea Nitrogen 24 mg/dL (9-20); Carbon Dioxide 19 mmol/L (22-30); Chloride 111 mmol/L (98-107); Potassium 4.8 mmol/L (3.5-5.1); Sodium 137 mmol/L (137-145)
== END ==
LOC: LABPAT 10:49
PROVIDERS: ATTEND Internal Medicine Interventional Cardiology
DX: Z01.812 Encounter for preprocedural laboratory examination (principal); E78.1 Pure hyperglyceridemia; I10 Essential (primary) hypertension; I70.213 Atherosclerosis of native arteries of extremities with intermittent claudication, bilateral legs
CPT/HCPCS: 36415; 80051; 82565; 84520; 85027

== ENCOUNTER 2018-08-12 10:44 | Day surgery (SDC) | payer MEDICARE ==
[~2018-08-12 10:44] MED LIST changes: +ASPIRIN 325 MG TAB PO ONE; -ASPIRIN 325 MG TAB PO STA; -HYDROcodone/APAP 10-325MG 1 EACH TAB PO PRN
[2018-08-12 11:21] VITALS: RESP 20; TEMP 97.8
[2018-08-12] MEDS ORDERED: MIDAZOLAM 2 MG/2 ML VIAL IVP ONE ×2 (12:10)
[2018-08-12] MEDS ORDERED: SODIUM CHLORIDE 0.9% 1,000 ML IV ONE (12:11)
[2018-08-12] MEDS ORDERED: LIDOCAINE 2% INJ 20 MG/ML SQ ONE (12:12)
[2018-08-12] MEDS ORDERED: IOPAMIDOL-250 100ML BTL INTRAARTER ONE (12:21)
[2018-08-12] MEDS ORDERED: IOPAMIDOL-250 50ML BTL INTRAARTER ONE (12:26)
[2018-08-12] MEDS ORDERED: SODIUM CHLORIDE 0.9% 1,000 ML IV SCH (12:30)
[2018-08-12] MEDS ORDERED: ACETAMINOPHEN IV (For NPO) 1,000 MG in EMPTY BAG 1 BAG IVPB ONE (13:21)
--- NOTE | 2018-08-12 13:33 | IR ---
EXAMINATION TYPE: IR angio abdominal w runoff DATE OF EXAM: 08/12/2018 COMPARISON: NONE HISTORY: Peripheral vascular occlusive disease. Fluoroscopy was provided to the referring clinician. See dictated report from cardiology.
[2018-08-12 18:18] VITALS: PULSE 62
[2018-08-12 18:23] VITALS: BP 140/66
--- NOTE | 2018-08-13 15:55 | AN ---
ANGIOGRAPHY REPORT ABDOMINAL AORTOGRAM AND BILATERAL LOWER EXTREMITY RUNOFF.: DATE OF SERVICE: 08/13/2018 PERFORMING PHYSICIAN: Hector Howell MD, clerk typist. PROCEDURES PERFORMED: 1. Abdominal aortogram. 2. Bilateral lower extremity runoff. 3. Selective left and right vvnby-clh-swio angiogram. INDICATION: This is a very pleasant 62-year-old gentleman who sees Dr. Key Lara in the office as an outpatient with known history of peripheral arterial disease and prior bilateral iliac stenting as well as SFA angioplasty who was struggling with critical limb ischemia of the left foot with a nonhealing ulcer. Because of that, he was brought today to undergo an abdominal aortogram and bilateral lower extremity runoff. APPROACH: Right common femoral artery. COMPLICATIONS: None. LEVEL OF SEDATION: Moderate, with a sedation length of 15 minutes. PROCEDURE DESCRIPTION: After obtaining informed consent, the patient was brought to the cardiac cathode maker. The right common femoral artery was cannulated using micropuncture technique. The micropuncture wire passed easily. Then I placed a 5-Solomon Islander sheath in the right common femoral artery. After that I did an abdominal aortogram and bilateral lower extremity runoff using a 5-[place] Islander pigtail catheter. The procedure was completed without any complication. I did selective bilateral [id number] angiogram as well. SELECTIVE PERIPHERAL ANGIOGRAM: 1. The aorta appeared to be calcified with mild disease only. 2. Common iliac arteries. The right and left common iliac arteries are angiographically normal. 3. External iliac arteries. The right and left external iliac arteries are stented, and the stents are patent. 4. Common femoral arteries. The right common femoral artery is angiographically normal. The left common femoral artery appeared to have intermediate disease only. 5. Profundae. The right and left profundae are patent. 6. SFA. The right SFA appeared to have mild disease only and the left SFA is stented in the proximal and mid portion with severe in-stent restenosis involving the proximal portion of the stent. 7. Popliteals. The right popliteal appeared to have mild disease only. The left popliteal appeared to have intermediate disease only. 8. Below the knee. There is 3-vessel runoff below the knees bilaterally. On the left side the anterior tibial is diffusely diseased up to about 90% to 95% in the mid portion. On the left side there is 3-vessel runoff below the knee. CONCLUSION: 1. Patent bilateral external iliac artery stents. 2. Intermediate disease involving the left common femoral artery. 3. Severe in-stent restenosis of the left SFA. 4. Severe and diffuse disease involving the left anterior tibial. POST-PROCEDURE MANAGEMENT: GRAVE CLEANER of the left SFA and left anterior tibial as well. MMODL / IJN: [id number] /
== END 2018-08-12 18:10 | disposition home or self-care (01) ==
LOC: CATHCVL 10:44
PROVIDERS: ATTEND Internal Medicine Interventional Cardiology
DX: I70.244 Atherosclerosis of native arteries of left leg with ulceration of heel and midfoot (principal); T82.856A Stenosis of peripheral vascular stent, initial encounter; I70.0 Atherosclerosis of aorta; L97.429 Non-pressure chronic ulcer of left heel and midfoot with unspecified severity; I10 Essential (primary) hypertension; E78.5 Hyperlipidemia, unspecified; M06.9 Rheumatoid arthritis, unspecified; I25.10 Atherosclerotic heart disease of native coronary artery without angina pectoris; I42.9 Cardiomyopathy, unspecified; E78.2 Mixed hyperlipidemia; Z86.14 Personal history of Methicillin resistant Staphylococcus aureus infection; Z95.820 Peripheral vascular angioplasty status with implants and grafts; Z95.5 Presence of coronary angioplasty implant and graft; Z79.1 Long term (current) use of non-steroidal anti-inflammatories (NSAID); Z79.02 Long term (current) use of antithrombotics/antiplatelets; Z79.82 Long term (current) use of aspirin; Z79.899 Other long term (current) drug therapy; F17.210 Nicotine dependence, cigarettes, uncomplicated
CPT/HCPCS: 36200; 75625; 75716; C1769 ×4; J2001; J2250; J0131; Q9966 ×2

== ENCOUNTER → 2018-09-22 | Outpatient (CLI) | payer MEDICARE ==
[2018-09-22 11:15] LABS: Anisocytosis Slight; HCT 42.7 % (39.0-53.0); HGB 13.4 gm/dL (13.0-17.5); Hypochromasia Slight; MCH 29.5 pg (25.0-35.0); MCHC 31.5 g/dL (31.0-37.0); MCV 93.7 fL (80.0-100.0); Platelet Count 260 k/uL (150-450); RBC 4.55 m/uL (4.30-5.90); RDW 16.8 % (11.5-15.5); WBC 7.9 k/uL (3.8-10.6)
[2018-09-22 11:40] LABS: Anion Gap 11 mmol/L; Blood Urea Nitrogen 20 mg/dL (9-20); Carbon Dioxide 22 mmol/L (22-30); Chloride 107 mmol/L (98-107); Sodium 140 mmol/L (137-145)
== END | disposition home or self-care (01) ==
LOC: LABPAT 10:46
PROVIDERS: ATTEND Internal Medicine Interventional Cardiology
DX: Z01.812 Encounter for preprocedural laboratory examination (principal); F17.200 Nicotine dependence, unspecified, uncomplicated
CPT/HCPCS: 80051; 82565; 84520; 85027

== ENCOUNTER 2018-10-06 06:37 | Day surgery (SDC) | payer MEDICARE ==
[2018-09-29 11:21] VITALS: BMI 22.6
[~2018-10-06 06:37] MED LIST changes: -ALPRAZolam 0.25 MG TAB PO PRN; -ASPIRIN 325 MG TAB PO ONE
[2018-10-06] MEDS ORDERED: ASPIRIN 325 MG TAB PO ONE (07:00)
[2018-10-06] MEDS ORDERED: MIDAZOLAM 2 MG/2 ML VIAL IV ONE ×2 (07:43→08:41)
[2018-10-06] MEDS ORDERED: LIDOCAINE 1% INJ 10MG/ML (20 ML MDV) SQ ONE (07:49)
[2018-10-06] MEDS ORDERED: fentaNYL (PF) 50 MCG/ML 2 ML AMP IV ONE (08:41)
[2018-10-06] MEDS ORDERED: CLOPIDOGREL 75 MG TAB PO ONE (08:46)
[2018-10-06] MEDS ORDERED: niCARdipine Syringe (1,000 mcg/10 mL) INTRAARTER ONE (09:11)
[2018-10-06] MEDS ORDERED: NITROGLYCERIN 1000MCG/10ML SYRINGE INTRAARTER ONE (09:11)
[2018-10-06] MEDS ORDERED: IOPAMIDOL-250 100ML BTL INTRAARTER ONE (09:23)
[2018-10-06] MEDS ORDERED: SODIUM CHLORIDE 0.9% 1,000 ML IV SCH (09:45)
[2018-10-06] MEDS: HYDROmorphone 1 MG/ML 1 ML SYRINGE IVP PRN ×3 (10:06→18:51)
[2018-10-06] MEDS: traMADol 50 MG TAB PO PRN ×3 (11:04→23:16)
--- NOTE | 2018-10-06 12:27 | LTR ---
DATE OF SERVICE: 10/06/2018 RE: Carmita Tineo Dear Dr. Woodson; . Mr. Carmita Tineo underwent successful balloon angioplasty and stenting of the left femoral artery with good angiographic results and without any complication. I want to thank you for allowing me to participate in his care and please do not hesitate to call if you have any questions or concerns. Sincerely, Hector Howell MD MMCAMMIE / EDWARDN: [id number] /
--- NOTE | 2018-10-06 12:34 | AN ---
ANGIOGRAPHY REPORT DATE OF SERVICE: 10/06/2018 PERFORMING PHYSICIAN: Hector Howell MD, Laboratory Monitor. PROCEDURE PERFORMED: 1. Selective left kezjy-mme-csvs angiogram. 2. Selective left popliteal/SFA angiogram. 3. Selective right common femoral artery angiogram. 4. An atherectomy of the left SFA and left popliteal using the TurboHawk atherectomy device with extraction of significant amount of plaque. 5. Successful stenting of the distal left SFA using 6 x 16 mm Zilver PTX drug-coated stent with an excellent angiographic results. 6. Successful balloon angioplasty of the left SFA using the 6 mm drug-coated balloon with an excellent angiographic results. 7. Intravascular ultrasound IVUS of the left SFA and left popliteal. INDICATION: This is a pleasant 62-year-old gentleman who has known history of peripheral arterial disease with history of bilateral iliac stenting and left SFA angioplasty who continues to struggle with critical limb ischemia of the left foot. He underwent a peripheral angiogram recently and that showed severe disease involving the severe in-stent restenosis of the left SFA and intermediate to severe disease involving the left popliteal. Because of that, he was brought today to undergo an intervention. APPROACH: Right common femoral artery. COMPLICATION: None. LEVEL OF SEDATION: Moderate with sedation length of 87 minutes. PROCEDURE DESCRIPTION: After obtaining an informed consent, the patient was brought to the cardiac laboratory supervisor. The right common femoral artery was cannulated using micropuncture technique, the micropuncture wire passed easily, then I placed a 6-Chilean sheath in the right common femoral artery, which was an 11 cm sheath. Subsequently, anticoagulation was initiated using heparin and the patient was given 6000 units of heparin IV with additional 3000 throughout the procedures with continuous ACT monitoring throughout the procedure as well. Subsequently, I did select the left SFA using a 5-Chilean Rim catheter with 0.035 Mccarr Advantage wire. After that, I did exchange my 11 cm 6-Chilean sheath into 55 cm 6- Chilean sheath using 0.035 Mccarr Advantage wire and the sheath was positioned in the proximal left SFA. After that, I did selective left [id number]-[id number]-[id number] angiogram, selective left popliteal/SFA angiogram. After that, I did intravascular ultrasound IVUS of the left popliteal and left SFA to assess that lesion in the left popliteal which turned to be significant. At that point, I decided to atherectomize that lesion, so I did atherectomy of the left popliteal using the TurboHawk atherectomy device with extraction of significant amount of plaque from the left popliteal. After that, I did AngioSculpt of the left SFA for that in-stent restenosis. Then I did balloon angioplasty of the both the left SFA and left popliteal using the drug-coated balloon. The following angiogram showed good angiographic results of the left SFA, but there was dissection of the left popliteal, which I decided to cover with a stent, so I deployed 6 x 60 mm Zilver PTX drug-coated stent where the stent was positioned under fluoroscopy guidance and deployed and after that, I post dilated the stent using 6 mm balloon. The following angiogram showed good angiographic results and the procedure was completed without any complication. After that, I did exchange my long sheath into short sheath. The procedure was completed without any complication. POSTPROCEDURE MANAGEMENT: 1. Dual anti-platelet therapy. 2. Risk factors modifications. 3. Follow up with the patient. BERENICE / EDWARDN: [id number] /
[2018-10-06] MEDS ORDERED: hydrOXYzine HCL 25 MG TAB PO SCH (21:00)
[2018-10-07] MEDS: HYDROmorphone 1 MG/ML 1 ML SYRINGE IVP PRN (03:57)
[2018-10-07 07:00] LABS: Anisocytosis Slight; Basophils # (A) 0.1 k/uL (0-0.2); Basophils % (A) 1 %; Eosinophils # (A) 0.3 k/uL (0-0.7); Eosinophils % (A) 6 %; HCT 37.9 % (39.0-53.0); Hypochromasia Slight; Lymphocytes # (A) 0.8 k/uL (1.0-4.8); Lymphocytes % (A) 15 %; MCH 29.4 pg (25.0-35.0); MCHC 31.6 g/dL (31.0-37.0); MCV 93.2 fL (80.0-100.0); Monocytes # (A) 0.4 k/uL (0-1.0); Monocytes % (A) 6 %; Neutrophils # (A) 3.8 k/uL (1.3-7.7); Neutrophils % (A) 69 %; Platelet Count 219 k/uL (150-450); RBC 4.06 m/uL (4.30-5.90); RDW 16.3 % (11.5-15.5); WBC 5.5 k/uL (3.8-10.6)
[2018-10-07 07:15] LABS: Anion Gap 5 mmol/L; Blood Urea Nitrogen 18 mg/dL (9-20); Carbon Dioxide 19 mmol/L (22-30); Chloride 115 mmol/L (98-107); Glucose 102 mg/dL (74-99); Potassium 4.7 mmol/L (3.5-5.1); Sodium 139 mmol/L (137-145)
[2018-10-07] MEDS: traMADol 50 MG TAB PO PRN (08:20)
[2018-10-07] MEDS ORDERED: LISINOPRIL 10 MG TAB PO SCH (09:00)
[2018-10-07] MEDS ORDERED: FAMOTIDINE 20 MG TAB PO SCH (09:00)
[2018-10-07] MEDS ORDERED: ALLOPURINOL 300 MG TAB PO SCH (09:00)
[2018-10-07] MEDS ORDERED: LORATADINE 10 MG TAB PO SCH (09:00)
[2018-10-07] MEDS ORDERED: DONEPEZIL 5 MG TAB PO SCH (09:00)
[2018-10-07] MEDS ORDERED: CLOPIDOGREL 75 MG TAB PO SCH (09:00)
[2018-10-07] MEDS ORDERED: ASPIRIN 81 MG PO SCH (09:00)
[2018-10-07] MEDS ORDERED: CITALOPRAM HYDROBROMIDE 20 MG TAB PO SCH (09:00)
--- NOTE | 2018-10-07 10:17 | IR ---
Fluoroscopy HISTORY: Pain in leg 17.3 minutes fluoroscopy time supplied to the referring clinician. 770 intraoperative C-arm images d ocument the procedure. See dictated report from cardiology.
[2018-10-07 11:50] VITALS: BP 126/70; PULSE 61; RESP 16; TEMP 98.2
--- NOTE | 2018-10-07 17:38 | P.DS ---
Providers Date of admission: 10/06/2018 Attending physician: Hector Howell Primary care physician: David Woodson [facility] Course: This is a pleasant 62-year-old gentleman with known history of peripheral arterial disease and prior bilateral iliac stenting as well as left SFA stenting who continues to struggle was a critical limb ischemia and nonhealing ulcer involving the left heel. The patient was admitted to the hospital yesterday and underwent successful balloon angioplasty and stenting of the left SFA with a good angiographic results and without any complication. The procedure was performed from the right groin which is soft and nontender and without any bruises. He is going to be discharged home on dual antiplatelet therapy along with a statin and I will follow-up with the patient next week in the office. Patient Condition at Discharge: Stable Plan - Discharge Summary Discharge Rx Participant: Yes New Discharge Prescriptions: New Atorvastatin [Lipitor] 20 mg PO HS #90 tab Continue Citalopram Hydrobromide [Citalopram HBr] 20 mg PO QAM Lisinopril [Zestril] 10 mg PO QAM Aspirin [Adult Low Dose Aspirin EC] 81 mg PO DAILY Clopidogrel [Plavix] 75 mg PO QAM Allopurinol [Zyloprim] 300 mg PO DAILY hydrOXYzine HCL 25 mg PO HS Famotidine [Pepcid] 20 mg PO QAM traMADol HCL [Ultram] 100 mg PO Q6HR PRN PRN Reason: Pain Cetirizine HCl [Zyrtec] 10 mg PO DAILY Donepezil HCl [Aricept] 5 mg PO DAILY Discharge Medication List Citalopram Hydrobromide [Citalopram HBr] 20 mg PO QAM 04/05/14 [History] Lisinopril [Zestril] 10 mg PO QAM 09/14/14 [History] Aspirin [Adult Low Dose Aspirin EC] 81 mg PO DAILY 09/17/17 [History] Allopurinol [Zyloprim] 300 mg PO DAILY 09/18/17 [History] Clopidogrel [Plavix] 75 mg PO QAM 09/18/17 [History] hydrOXYzine HCL 25 mg PO HS 09/18/17 [History] Famotidine [Pepcid] 20 mg PO QAM 07/12/18 [History] Cetirizine HCl [Zyrtec] 10 mg PO DAILY 09/29/18 [History] traMADol HCL [Ultram] 100 mg PO Q6HR PRN 09/29/18 [History] Donepezil HCl [Aricept] 5 mg PO DAILY 10/06/18 [History] Atorvastatin [Lipitor] 20 mg PO HS #90 tab 10/07/18 [Rx] Follow up Appointment(s)/Referral(s): Hector Howell MD [STAFF PHYSICIAN] - 10/14/18 3:00 pm Patient Instructions/Handouts: How to Stop Smoking (DC), Peripheral Vascular Angioplasty (DC) Discharge Disposition: HOME SELF-CARE
[2018-10-07] MEDS ORDERED: ATORVASTATIN 20 MG TAB PO SCH (21:00)
== END 2018-10-07 12:44 | disposition home or self-care (01) ==
LOC: CATHCVL 06:37 → 3SCARD 11:45 → CATHCVL 10-07 12:44
PROVIDERS: ATTEND Internal Medicine Interventional Cardiology
DX: M06.9 Rheumatoid arthritis, unspecified (principal); I10 Essential (primary) hypertension; E78.5 Hyperlipidemia, unspecified; F17.210 Nicotine dependence, cigarettes, uncomplicated; Z95.5 Presence of coronary angioplasty implant and graft; Z79.2 Long term (current) use of antibiotics; Z79.1 Long term (current) use of non-steroidal anti-inflammatories (NSAID); Z79.02 Long term (current) use of antithrombotics/antiplatelets; Z79.82 Long term (current) use of aspirin; Z79.899 Other long term (current) drug therapy
CPT/HCPCS: 37227; 37252; 80048; 85025; C1894 ×2; C1725 ×2; C1769 ×4; C1714; C1753; C1874; C2623 ×2; J2250; J2001; J3010; J1170 ×2; J1644; Q9966

== ENCOUNTER 2019-05-17 14:00 | Inpatient (IN) | payer MEDICARE ==
[2019-05-17] MEDS ORDERED: IPRATROPIUM-ALBUTEROL 3 ML NEB INHALATION STA (14:40)
[2019-05-17] MEDS ORDERED: IBUPROFEN 600 MG TAB PO STA (14:40)
[2019-05-17] MEDS: IPRATROPIUM-ALBUTEROL 3 ML NEB INHALATION STA ×2 (14:44→16:58)
--- NOTE | 2019-05-17 14:45 | ED ---
General Adult HPI - General Chief complaint: Recheck/Abnormal Lab/Rx Stated complaint: TRAVIS Time Seen by Provider: 05/17/19 14:10 Source: family, RN notes reviewed Mode of arrival: wheelchair Limitations: no limitations - History of Present Illness Initial comments: This is a 63-year-old male who presents emergency Department with a past medical history significant for psoriasis and smoking. Patient comes into the emergency department today because he states over the last month his psoriasis gotten considerably worse and he is having multiple episodes of the chills he states that the redness on his chest abdomen back and extremities is worse and it is ever been. Patient states she recently tried some steroids that his primary medical care doctor gave him but they have not helped. Patient states the whole body just kind of aches at a constant level. Patient states she also little short of breath but he is a smoker and states he always has a little bit of a wheeze. Patient denies chest pain or palpitations. Patient denies any actual fever that he knows of. Patient denies a cough per patient denies abdominal pain patient denies nausea vomiting diarrhea. Patient denies any lesions that appear to be infected. - Related Data Home Medications Medication Instructions Recorded Confirmed Citalopram Hydrobromide 20 mg PO QAM 04/05/14 05/17/19 [Citalopram HBr] Lisinopril [Zestril] 10 mg PO QAM 09/14/14 05/17/19 Aspirin [Adult Low Dose Aspirin EC] 81 mg PO DAILY 09/17/17 05/17/19 Allopurinol [Zyloprim] 300 mg PO DAILY 09/18/17 05/17/19 Clopidogrel [Plavix] 75 mg PO QAM 09/18/17 05/17/19 hydrOXYzine HCL 25 mg PO HS 09/18/17 05/17/19 Famotidine [Pepcid] 20 mg PO QAM 07/12/18 05/17/19 Cetirizine HCl [Zyrtec] 10 mg PO DAILY 09/29/18 05/17/19 traMADol HCL [Ultram] 50 mg PO Q12H 09/29/18 05/17/19 Donepezil HCl [Aricept] 5 mg PO DAILY 10/06/18 05/17/19 Adalimumab [Humira Crohn's] 40 mg SQ TH 05/17/19 05/17/19 Albuterol Sulfate [Proair Hfa] 1 - 2 puff INHALATION RT-Q6H 05/17/19 05/17/19 Flaxseed Oil 1200mg 1,200 mg PO DAILY 05/17/19 05/17/19 Gabapentin [Neurontin] 300 mg PO TID 05/17/19 05/17/19 Allergies Allergy/AdvReac Type Severity Reaction Status Date / Time No Known Allergies Allergy Verified 05/17/19 14:54 Review of Systems ROS Statement: Those systems with pertinent positive or pertinent negative responses have been documented in the HPI. ROS Other: All systems not noted in ROS Statement are negative. Past Medical History Past Medical History: Coronary Artery Disease (CAD), COPD, Deep Vein Thrombosis (DVT), GERD/Reflux, Hypertension, Osteoarthritis (OA), Rheumatoid Arthritis (RA), Skin Disorder Additional Past Medical History / Comment(s): Multiple dislocations of left total hip, psoriasis, Gout, Hx of DVT both legs. 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 Left Hip replacement, cataract eye sx. lt ankle has screws. LAPARASCOPIC SHANTANU FUNDOPLASTY. 10/06/2018 LSFA STENT AND ARTHRECTOMY Past Anesthesia/Blood Transfusion Reactions: Previous Problems w/ Anesthesia Additional Past Anesthesia/Blood Transfusion Reaction / Comment(s): "HAS CONFUSION AND DISORIENTATION POST ANESTHESIA " on occasion Date of Last Stent Placement:: 2012 Past Psychological History: No Psychological Hx Reported Smoking Status: Current every day smoker Past Alcohol Use History: None Reported Past Drug Use History: None Reported - Past Family History Mother Family Medical History: No Reported History Additional Family Medical History / Comment(s): Father History Unknown: Yes Family Medical History: Unable to Obtain General Exam - General Exam Comments Initial Comments: GENERAL: Patient is well-developed and well-nourished. Patient is nontoxic and well- hydrated and is in mild distress. ENT: Neck is soft and supple. No significant lymphadenopathy is noted. Oropharynx is clear. Moist mucous membranes. Neck has full range of motion without eliciting any pain. EYES: The sclera were anicteric and conjunctiva were pink and moist. Extraocular movements were intact and pupils were equal round and reactive to light. Eyelids were unremarkable. PULMONARY: Patient has expiratory wheezing bilaterally CARDIOVASCULAR: There is a regular rate and rhythm without any murmurs gallops or rubs. Femoral pulses are equal bilaterally ABDOMEN: Soft and nontender with normal bowel sounds. No palpable organomegaly was noted. There is no palpable pulsatile mass. SKIN: Skin is mildly erythematous just about everywhere there are some excoriations on both legs do not appear to be infected but appear to be from itching. Skin is excessively dry everywhere. NEUROLOGIC: Patient is alert and oriented x3. Cranial nerves II through XII are grossly intact. Motor and sensory are also intact. Normal speech, volume and content. Symmetrical smile. MUSCULOSKELETAL: Normal extremities with adequate strength and full range of motion. Scant edema in the left leg. No calf tenderness. LYMPHATICS: No significant lymphadenopathy is noted PSYCHIATRIC: Normal psychiatric evaluation. Limitations: no limitations Course Vital Signs 05/17/19 05/17/19 05/17/19 14:07 14:41 14:50 Temperature 97.9 F Pulse Rate 80 82 86 Respiratory 18 Rate Blood Pressure 117/70 O2 Sat by Pulse 96 Oximetry 05/17/19 15:05 Temperature Pulse Rate 79 Respiratory 18 Rate Blood Pressure 124/78 O2 Sat by Pulse 96 Oximetry Medical Decision Making - Medical Decision Making EKG shows normal sinus rhythm at 77 bpm AR interval is on a 32 QRS is under 40 QT interval 436 QTC is 493. Patient's EKG shows T-wave inversions in II, III, and F aVF as well as some ST segment depression in leads V3 through V6. She also has a right bundle branch block. Chest x-ray shows no acute abnormality. I spoke with Dr. Woodson and he agreed to admit the patient. I saw the patient on steroids so I put the patient started and repeated cardiac enzymes. I wrote admitting orders. - Lab Data Result diagrams: 05/17/19 14:51 05/17/19 14:51 Lab Results 05/17/19 05/17/19 05/17/19 Range/Units 14:51 14:51 14:51 WBC 6.7 (3.8-10.6) k/uL RBC 3.86 L (4.30-5.90) m/uL Hgb 10.7 L (13.0-17.5) gm/dL Hct 35.6 L (39.0-53.0) % MCV 92.3 (80.0-100.0) fL MCH 27.8 (25.0-35.0) pg MCHC 30.2 L (31.0-37.0) g/dL RDW 17.2 H (11.5-15.5) % Plt Count 283 (150-450) k/uL Neutrophils % 79 % Lymphocytes % 11 % Monocytes % 5 % Eosinophils % 3 % Basophils % 1 % Neutrophils # 5.4 (1.3-7.7) k/uL Lymphocytes # 0.7 L (1.0-4.8) k/uL Monocytes # 0.3 (0-1.0) k/uL Eosinophils # 0.2 (0-0.7) k/uL Basophils # 0.1 (0-0.2) k/uL Hypochromasia Moderate Anisocytosis Slight PT (9.0-12.0) sec INR (<1.2) APTT (22.0-30.0) sec Sodium 140 (137-145) mmol/L Potassium 5.2 H (3.5-5.1) mmol/L Chloride 109 H (98-107) mmol/L Carbon Dioxide 22 (22-30) mmol/L Anion Gap 9 mmol/L BUN 16 (9-20) mg/dL Creatinine 0.88 (0.66-1.25) mg/dL Est GFR (CKD-EPI)AfAm >90 (>60 ml/min/1.73 sqM) Est GFR (CKD-EPI)NonAf >90 (>60 ml/min/1.73 sqM) Glucose 92 (74-99) mg/dL Plasma Lactic Acid Juan 1.8 (0.7-2.0) mmol/L Calcium 8.7 (8.4-10.2) mg/dL Total Bilirubin 0.3 (0.2-1.3) mg/dL AST 24 (17-59) U/L ALT 20 L (21-72) U/L Alkaline Phosphatase 77 (38-126) U/L Troponin I (0.000-0.034) ng/mL Total Protein 6.9 (6.3-8.2) g/dL Albumin 3.7 (3.5-5.0) g/dL Urine Color Urine Appearance (Clear) Urine pH (5.0-8.0) Ur Specific [place] (1.001-1.035) Urine Protein (Negative) Urine Glucose (UA) (Negative) Urine Ketones (Negative) Urine Blood (Negative) Urine Nitrite (Negative) Urine Bilirubin (Negative) Urine Urobilinogen (<2.0) mg/dL Ur Leukocyte Esterase (Negative) Urine RBC (0-5) /hpf Urine Mucus (None) /hpf 05/17/19 05/17/19 05/17/19 Range/Units 14:51 14:51 15:02 WBC (3.8-10.6) k/uL RBC (4.30-5.90) m/uL Hgb (13.0-17.5) gm/dL Hct (39.0-53.0) % MCV (80.0-100.0) fL MCH (25.0-35.0) pg MCHC (31.0-37.0) g/dL RDW (11.5-15.5) % Plt Count (150-450) k/uL Neutrophils % % Lymphocytes % % Monocytes % % Eosinophils % % Basophils % % Neutrophils # (1.3-7.7) k/uL Lymphocytes # (1.0-4.8) k/uL Monocytes # (0-1.0) k/uL Eosinophils # (0-0.7) k/uL Basophils # (0-0.2) k/uL Hypochromasia Anisocytosis PT 9.5 (9.0-12.0) sec INR 0.9 (<1.2) APTT 23.5 (22.0-30.0) sec Sodium (137-145) mmol/L Potassium (3.5-5.1) mmol/L Chloride (98-107) mmol/L Carbon Dioxide (22-30) mmol/L Anion Gap mmol/L BUN (9-20) mg/dL Creatinine (0.66-1.25) mg/dL Est GFR (CKD-EPI)AfAm (>60 ml/min/1.73 sqM) Est GFR (CKD-EPI)NonAf (>60 ml/min/1.73 sqM) Glucose (74-99) mg/dL Plasma Lactic Acid Juan (0.7-2.0) mmol/L Calcium (8.4-10.2) mg/dL Total Bilirubin (0.2-1.3) mg/dL AST (17-59) U/L ALT (21-72) U/L Alkaline Phosphatase (38-126) U/L Troponin I 0.026 (0.000-0.034) ng/mL Total Protein (6.3-8.2) g/dL Albumin (3.5-5.0) g/dL Urine Color Yellow Urine Appearance Clear (Clear) Urine pH 6.0 (5.0-8.0) Ur Specific [place] 1.019 (1.001-1.035) Urine Protein 1+ H (Negative) Urine Glucose (UA) Negative (Negative) Urine Ketones Negative (Negative) Urine Blood Negative (Negative) Urine Nitrite Negative (Negative) Urine Bilirubin Negative (Negative) Urine Urobilinogen 2.0 (<2.0) mg/dL Ur Leukocyte Esterase Negative (Negative) Urine RBC <1 (0-5) /hpf Urine Mucus Rare H (None) /hpf Disposition Clinical Impression: Psoriasis, Acute electrocardiogram changes Disposition: ADMITTED IP TO THIS HOSP Referrals: David Woodson DO [Primary Care Provider] - 1-2 days Time of Disposition: 16:49
[2019-05-17] MEDS: SODIUM CHLORIDE 0.9% 500 ML 500 ML IV SCH ×2 (15:00→15:01)
[2019-05-17 15:11] LABS: Anisocytosis Slight; Basophils # (A) 0.1 k/uL (0-0.2); Basophils % (A) 1 %; Eosinophils # (A) 0.2 k/uL (0-0.7); Eosinophils % (A) 3 %; HCT 35.6 % (39.0-53.0); HGB 10.7 gm/dL (13.0-17.5); Hypochromasia Moderate; Lymphocytes # (A) 0.7 k/uL (1.0-4.8); Lymphocytes % (A) 11 %; MCH 27.8 pg (25.0-35.0); MCHC 30.2 g/dL (31.0-37.0); MCV 92.3 fL (80.0-100.0); Mean Platelet Volume 6.6; Monocytes # (A) 0.3 k/uL (0-1.0); Monocytes % (A) 5 %; Neutrophils # (A) 5.4 k/uL (1.3-7.7); Neutrophils % (A) 79 %; Platelet Count 283 k/uL (150-450); RBC 3.86 m/uL (4.30-5.90); RDW 17.2 % (11.5-15.5); WBC 6.7 k/uL (3.8-10.6)
[2019-05-17 15:20] LABS: INR 0.9 (<1.2); Prothrombin Time 9.5 sec (9.0-12.0)
[2019-05-17 15:21] LABS: Partial Thromboplastin Time 23.5 sec (22.0-30.0)
[2019-05-17 15:22] LABS: ALT 20 U/L (21-72); AST 24 U/L (17-59); African American GFR (CKD) >90 (>60 ml/min/1.73 sqM); Albumin 3.7 g/dL (3.5-5.0); Alkaline Phosphatase 77 U/L (38-126); Anion Gap 9 mmol/L; Blood Urea Nitrogen 16 mg/dL (9-20); Calcium 8.7 mg/dL (8.4-10.2); Carbon Dioxide 22 mmol/L (22-30); Chloride 109 mmol/L (98-107); Glucose 92 mg/dL (74-99); Potassium 5.2 mmol/L (3.5-5.1); Sodium 140 mmol/L (137-145); Total Bilirubin 0.3 mg/dL (0.2-1.3); Total Protein 6.9 g/dL (6.3-8.2)
[2019-05-17 15:38] LABS: Appearance,Urine Clear (Clear); Bilirubin,Urine Negative (Negative); Blood,Urine Negative (Negative); Color,Urine Yellow; Glucose,Urine (UA) Negative (Negative); Ketones,Urine Negative (Negative); Leukocyte Esterase,Urine Negative (Negative); Mucus,Urine Rare /hpf; Nitrite,Urine Negative (Negative); Protein,Urine 1+ (Negative); RBC,Urine <1 /hpf (0-5); Specific Gravity,Urine 1.019 (1.001-1.035)
--- NOTE | 2019-05-17 15:38 | XR ---
EXAMINATION TYPE: XR chest 2V DATE OF EXAM: 05/17/2019 COMPARISON: 12/04/2015 HISTORY: Fever TECHNIQUE: Frontal and lateral views of the chest are obtained. FINDINGS: There is chronic left hemidiaphragm elevation basilar atelectasis. Pulmonary hyperinflatio n and flattening of the diaphragms represents underlying COPD. Minimal degenerative changes of thorac ic spine. Diffuse osseous demineralization. Cardiomediastinal silhouette is enlarged as seen on the p rior. No new focal consolidation, pleural effusion or pneumothorax. Old fracture deformity is healed the lateral aspect of rib 5 on the left IMPRESSION: Chronic changes with no acute cardiopulmonary process.
[2019-05-17] MEDS ORDERED: methylPREDNISolone SOD SUCCI 125 MG/2 ML VIAL IV STA (16:49)
[2019-05-17] MEDS ORDERED: SODIUM CHLORIDE 0.9% 1,000 ML IV ONE (16:50)
[2019-05-17] MEDS: traMADol 50 MG TAB PO SCH (23:58)
[2019-05-17] MEDS: hydrOXYzine HCL 25 MG TAB PO SCH (23:58)
[2019-05-17] MEDS: GABAPENTIN 300 MG CAP PO SCH (23:58)
[2019-05-17] MEDS: methylPREDNISolone SOD SUCCI 125 MG/2 ML VIAL IV SCH (23:59)
[2019-05-18] MEDS: ALBUTEROL NEBULIZED 2.5 MG/3 ML INHALATION SCH ×2 (03:01→07:15)
[2019-05-18] MEDS: methylPREDNISolone SOD SUCCI 125 MG/2 ML VIAL IV SCH (05:35)
[2019-05-18] MEDS: LISINOPRIL 10 MG TAB PO SCH (07:56)
[2019-05-18] MEDS: ASPIRIN 81 MG PO SCH (07:56)
[2019-05-18] MEDS ORDERED: IPRATROPIUM-ALBUTEROL 3 ML NEB INHALATION PRN (09:39)
[2019-05-18] MEDS: SYMBICORT 160-4.5 MCG INHALER INHALATION SCH ×2 (10:27→19:51)
[2019-05-18] MEDS: IPRATROPIUM-ALBUTEROL 3 ML NEB INHALATION SCH ×3 (10:41→19:51)
[2019-05-18] MEDS: FAMOTIDINE 20 MG TAB PO SCH (11:26)
[2019-05-18] MEDS: GABAPENTIN 300 MG CAP PO SCH ×3 (11:26→20:54)
[2019-05-18] MEDS: LORATADINE 10 MG TAB PO SCH (11:26)
[2019-05-18] MEDS: traMADol 50 MG TAB PO SCH ×2 (11:26→23:49)
[2019-05-18] MEDS: CLOPIDOGREL 75 MG TAB PO SCH (11:26)
[2019-05-18] MEDS: CITALOPRAM HYDROBROMIDE 20 MG TAB PO SCH (11:26)
[2019-05-18] MEDS: ALPRAZolam 0.25 MG TAB PO PRN ×2 (11:30→20:54)
[2019-05-18 11:49] LABS: Glucose,Whole Blood 177 mg/dL (75-99)
--- NOTE | 2019-05-18 13:19 | P.HPIM ---
History of Present Illness H&P Date: 05/18/19 Chief Complaint: Worsening shortness of breath This is a 63-year-old gentleman with medical history of CAD, COPD, DVT, gastroesophageal reflux disease, hypertension, rheumatoid and osteoarthritis, extensive psoriasis, ongoing nicotine dependence and multiple other medical is sues, presented to the ER with worsening shortness of breath, worsening psoriasis, chills, no fever, generalized whole body achiness. Denies chest pain, palpitations. Denies nausea vomiting or diarrhea. Denies abdominal pain. Denies any infected, draining lesions. EKG reporting normal sinus rhythm with right bundle branch block, T-wave abnormality with possible inferior ischemia. Troponins 0.026, 0.021, 0.023.Chest x-ray nonacute. Afebrile, normal WBC. Hemoglobin 10.7, platelets 283. Sodium 140, potassium 5.2, chloride 19 CO2 22 BUN 16, creatinine 0.88. Mild elevation of ALT 20. UA negative. Patient also presented with bedbugs. After receiving nebulizer treatment this morning dev eloped sinus tachycardia with heart rates up to 140, respiratory distress, anxiety, staff reports appear to have a panic attack. Xanax prescribed, Hospital pharmacy does not stock Xopenex, therefore unable to convert nebulized treatment-patient is on albuterol nebulizer at home. Currently maintaining O2 sats of 96% on 3 L nasal cannula O2, VSS. Denies chest pain, palpitations. Denies lightheadedness dizziness or focal deficits. Systemic steroids initiated. Cardiology and pulmonary consulted. Review of Systems ROS Statement: Those systems with pertinent positive or pertinent negative responses have been documented in the HPI. ROS Other: All systems not noted in ROS Statement are negative. Past Medical History Past Medical History: Coronary Artery Disease (CAD), COPD, Deep Vein Thrombosis (DVT), GERD/Reflux, Hypertension, Osteoarthritis (OA), Rheumatoid Arthritis (RA), Skin Disorder Additional Past Medical History / Comment(s): Multiple dislocations of left total hip, psoriasis, Gout, Hx of DVT both legs. 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 Left Hip replacement, cataract eye sx. lt ankle has screws. LAPARASCOPIC SHANTANU FUNDOPLASTY. 10/06/2018 LSFA STENT AND ARTHRECTOMY Past Anesthesia/Blood Transfusion Reactions: Previous Problems w/ Anesthesia Additional Past Anesthesia/Blood Transfusion Reaction / Comment(s): "HAS CONFU REED AND DISORIENTATION POST ANESTHESIA " on occasion Date of Last Stent Placement:: 2012 Past Psychological History: No Psychological Hx Reported Smoking Status: Current every day smoker Past Alcohol Use History: None Reported Additional Past Alcohol Use History / Comment(s): Started smoking at age 15- smoked 2 ppd, quit 2010. Started again 2016, less than 1ppd Past Drug Use History: None Reported - Past Family History Mother Family Medical History: No Reported History Additional Family Medical History / Comment(s): Father History Unknown: Yes Family Medical History: Unable to Obtain Medications and Allergies Home Medications Medication Instructions Recorded Confirmed Type Citalopram Hydrobromide 20 mg PO QAM 04/05/14 05/17/19 History [Citalopram HBr] Lisinopril [Zestril] 10 mg PO QAM 09/14/14 05/17/19 History Aspirin [Adult Low Dose Aspirin EC] 81 mg PO DAILY 09/17/17 05/17/19 History Allopurinol [Zyloprim] 300 mg PO DAILY 09/18/17 05/17/19 History Clopidogrel [Plavix] 75 mg PO QAM 09/18/17 05/17/19 History hydrOXYzine HCL 25 mg PO HS 09/18/17 05/17/19 History Famotidine [Pepcid] 20 mg PO QAM 07/12/18 05/17/19 History Cetirizine HCl [Zyrtec] 10 mg PO DAILY 09/29/18 05/17/19 History traMADol HCL [Ultram] 50 mg PO Q12H 09/29/18 05/17/19 History Donepezil HCl [Aricept] 5 mg PO DAILY 10/06/18 05/17/19 History Adalimumab [Humira Crohn's] 40 mg SQ TH 05/17/19 05/17/19 History Albuterol Sulfate [Proair Hfa] 1 - 2 puff INHALATION RT-Q6H 05/17/19 05/17/19 History Flaxseed Oil 1200mg 1,200 mg PO DAILY 05/17/19 05/17/19 History Gabapentin [Neurontin] 300 mg PO TID 05/17/19 05/17/19 History Allergies Allergy/AdvReac Type Severity Reaction Status Date / Time No Known Allergies Allergy Verified 05/17/19 14:54 Physical Exam Vitals: Vital Signs Temp Pulse Pulse Resp BP BP BP 05/18/19 12:00 98.1 F 84 18 119/56 05/18/19 10:53 89 18 05/18/19 10:41 84 18 05/18/19 09:15 95 139/67 05/18/19 08:30 125 H 16 198/88 05/18/19 08:00 138 H 28 H 200/101 05/18/19 07:27 88 16 05/18/19 07:15 90 18 05/18/19 04:00 98.2 F 79 18 132/67 05/18/19 00:00 98.1 F 80 18 132/68 05/17/19 19:50 98.2 F 82 18 141/67 05/17/19 19:30 98.7 F 79 18 132/66 05/17/19 18:36 98.4 F 80 18 123/66 05/17/19 17:10 86 05/17/19 16:58 84 05/17/19 15:05 79 18 124/78 05/17/19 14:50 86 05/17/19 14:41 82 05/17/19 14:07 97.9 F 80 18 117/70 Pulse Ox 05/18/19 12:00 96 05/18/19 10:53 05/18/19 10:41 05/18/19 09:15 05/18/19 08:30 99 05/18/19 08:00 94 L 05/18/19 07:27 05/18/19 07:15 05/18/19 04:00 98 05/18/19 00:00 96 05/17/19 19:50 100 05/17/19 19:30 98 05/17/19 18:36 98 05/17/19 17:10 05/17/19 16:58 05/17/19 15:05 96 05/17/19 14:50 05/17/19 14:41 05/17/19 14:07 96 Intake and Output 05/17/19 05/18/19 05/18/19 22:59 06:59 14:59 Intake Total 222 Output Total 0 Balance 222 Intake: Oral 222 Output: Urine 0 Other: Voiding Method Toilet # Voids 1 1 PHYSICAL EXAM: VITAL SIGNS: As above GENERAL: Sitting up in bed, no acute distress HEENT: Conjunctivae normal. eyes normal. NECK: No JVD. No thyroid enlargement. No LNs CARDIOVASCULAR: S1, S2 regular.. No murmur RESPIRATION: Breath sounds diminished in the bases. No rhonchi or crackles. Inspiratory and expiratory bilateral wheezing ABDOMEN: Soft, nontender . No guarding. no masses palpable. No ascites, No hepatosplenomegaly.Bowel sounds heard. LEGS: No edema. no swelling PSYCHIATRY: Alert and oriented X3, mood and affect normal. NERVOUS SYSTEM: Cranial N 2-12 grossly normal. Moves all 4 limbs. Diffuse weakness No focal deficits. Strength and sensation grossly intact.. Skin: Extensive psoriasis. Evaluated by Dr. Chintan harrison, psoriasis significantly improved; patient had been treated with outpatient steroids. Dry, no drainage. Joints: No active swelling. No inflammation. Lymphatic system. No LN neck axilla or groin. Results CBC & Chem 7: 05/17/19 14:51 05/17/19 14:51 Labs: Abnormal Lab Results - Last 24 Hours (Table) 05/17/19 05/17/19 05/17/19 Range/Units 14:51 14:51 15:02 RBC 3.86 L (4.30-5.90) m/uL Hgb 10.7 L (13.0-17.5) gm/dL Hct 35.6 L (39.0-53.0) % MCHC 30.2 L (31.0-37.0) g/dL RDW 17.2 H (11.5-15.5) % Lymphocytes # 0.7 L (1.0-4.8) k/uL Potassium 5.2 H (3.5-5.1) mmol/L Chloride 109 H (98-107) mmol/L POC Glucose (mg/dL) (75-99) mg/dL ALT 20 L (21-72) U/L Urine Protein 1+ H (Negative) Urine Mucus Rare H (None) /hpf 05/18/19 Range/Units 11:48 RBC (4.30-5.90) m/uL Hgb (13.0-17.5) gm/dL Hct (39.0-53.0) % MCHC (31.0-37.0) g/dL RDW (11.5-15.5) % Lymphocytes # (1.0-4.8) k/uL Potassium (3.5-5.1) mmol/L Chloride (98-107) mmol/L POC Glucose (mg/dL) 177 H (75-99) mg/dL ALT (21-72) U/L Urine Protein (Negative) Urine Mucus (None) /hpf Microbiology - Last 24 Hours (Table) 05/17/19 15:02 Urine Culture - Preliminary Urine,Clean Catch Thrombosis Risk Factor Assmnt - Choose All That Apply Any of the Below Risk Factors Present?: Yes Each Factor Represents 1 point: Abnormal pulmonary function (COPD) Other Risk Factors: Yes Each Risk Factor Represents 2 Points: Age 61-74 years Thrombosis Risk Factor Assessment Total Risk Factor Score: 3 Thrombosis Risk Factor Assessment Level: Moderate Risk Assessment and Plan Assessment: EKG changes, possible acute -Extensive psoriasis -COPD -Acute hypoxic, hypercapnic respiratory failure secondary to the above -Ongoing nicotine dependence -CAD -Gastroesophageal reflux disease -Rheumatoid and osteoarthritis -Hypertension -History of DVT -Bedbugs -Anxiety Plan: Continue current medication regime ,PPI,monitoring and symptomatic treatment. Maintain nebulized bronchodilators, steroids, Symbicort. Pulmonary/cardiology consult in place, recommendations pending. Home meds have been reviewed and resumed. Further recommendations to follow. The impression and plan of care has been dictated as directed. : I performed a history and examination of this patient, discussed the same with the dictator. I agree with the dictator's note ,documented as a scribe. Any a dditional findings or plans will be noted. Time taken: 35 minutes
[2019-05-18] MEDS: DONEPEZIL 5 MG TAB PO SCH (13:20)
[2019-05-18] MEDS: ALLOPURINOL 300 MG TAB PO SCH (13:20)
[2019-05-18] MEDS: INSULIN ASPART (NovoLOG) 100 UNIT/ML VIAL SQ SCH ×3 (16:12→20:55)
[2019-05-18 16:40] LABS: Glucose,Whole Blood 152 mg/dL (75-99)
[2019-05-18] MEDS: PANTOPRAZOLE 40 MG/10 ML VIAL IVP SCH (17:02)
[2019-05-18] MEDS: methylPREDNISolone SOD SUCCI 40 MG/ML 1 ML VIAL IV SCH ×2 (17:06→23:49)
[2019-05-18] MEDS: ACETAMINOPHEN TAB 325 MG TAB PO PRN (17:56)
--- NOTE | 2019-05-18 18:26 | CONS ---
CONSULTATION PULMONARY/CRITICAL CARE CONSULTATION: DATE OF SERVICE: 05/18/2019 This is a 63-year-old male who presents to the emergency department on May 17. He complains of chills, redness on his chest, abdomen, back and extremities and also with complaints of chest pain and shortness of breath. The patient apparently was having some difficulty breathing this morning in the Obs unit and for that reason I was consulted. I do not believe he initially came into the hospital with complaints of difficulty breathing. The patient is a heavy smoker, having smoked for more than 40 years. The patient does use an inhaler at home given to him by his primary care physician. The patient states that his breathing today is better since there was an A team called on him. The patient likely has substantial chronic lung disease as he does complain of chronic shortness of breath on exertion. He does have occasional chronic cough. No phlegm production. No wheezing. Again, he is feeling much better currently. HOME MEDICATIONS: Include citalopram, lisinopril, aspirin, Zyloprim, Plavix, Vistaril, Pepcid, Zyrtec, Ultram, Aricept, Humira, ProAir HFA, flaxseed oil, and gabapentin. ALLERGIES: Denied. MEDICAL HISTORY: Positive for CAD, probable COPD, DVT, GERD, hypertension, DJD, rheumatoid arthritis, and psoriasis. He also has a history of multiple dislocations of the left hip, gout, lower extremity DVT's, back and hip pain and previous MRSA infection. SURGICAL HISTORY: Includes back surgery, heart catheterization with stent, joint replacement and multiple other surgical procedures including various orthopedic procedures. In addition, the patient has had previous atherectomy, balloon angioplasty with stents, cardiac catheterization with 4 stents being placed among other vascular procedures. He has also had left hip replacement, cataract surgery, screws in his ankle, laparoscopic Rebekah plication, etc. SOCIAL HISTORY: Positive for ongoing tobacco use. He has been smoking for more than 40 years, at least a pack a day, maybe more. No alcohol or illicit drug use. FAMILY HISTORY: Apparently unable to be obtained. His mother is . He was not able to give any history as it relates to his father's medical history. REVIEW OF SYSTEMS: CONSTITUTIONAL: Fever and chills. NEUROLOGIC: Negative. HEENT: Negative. CARDIOVASCULAR: Chest pain. PULMONARY: Shortness of breath. GI: Negative. : Negative. RHEUMATOLOGIC: Negative. IMMUNOLOGIC: Negative. ENDOCRINOLOGIC: Negative. DERMATOLOGIC: Negative. PHYSICAL EXAMINATION: VITAL SIGNS: Current vital signs are reviewed. Temperature 98.1, heart rate 84, respiratory rate 18, blood pressure 119/56, mean 77, 3 L saturation 96%. Appears in no acute distress. HEENT examination is grossly unremarkable. Mucous membranes are moist. No oral lesions. NECK: Supple. Full range of motion. No adenopathy or thyromegaly. Neck veins are flat. CARDIOVASCULAR examination reveals regular rhythm rate. Heart rate 84. No murmur. LUNGS: Reveal a few scattered expiratory rhonchi. Some mild expiratory wheezes. No crackles. Breath sounds equal bilaterally. ABDOMEN: Soft. EXTREMITIES: Intact. No cyanosis, clubbing, or edema. SKIN: Without rash. NEUROLOGIC examination is brief but nonfocal. A chest x-ray done on May 17 shows no acute abnormalities. There are some chronic changes and changes of COPD. LABORATORY DATA: Reviewed. White count 6.7, hemoglobin 10.7, hematocrit 35.6, platelet count 283,000. PT/INR, PTT normal. Sodium 140, potassium 5.2, chloride 109, CO2 is 22, anion gap is 9. BUN and creatinine were 16 and 0.88. Troponins were 0.026, 0.021 and 0.023. Urine was negative. Microbiologic studies are negative. Medications are reviewed. He is on Symbicort and he is on updrafts with albuterol and Atrovent. He is also getting Solu-Medrol 40 mg q.8h. ASSESSMENT: 1. Mild chronic obstructive pulmonary disease exacerbation in a patient with likely underlying chronic obstructive pulmonary disease although has never been seen by biztalk developer and has never had pulmonary function testing. 2. History of psoriasis which may be a bit more active at this time. 3. Significant peripheral vascular occlusive disease. 4. History of chronic tobacco dependence for more than 40 years. 5. History of hypertension. 6. History of anxiety/depression. 7. History of gout. 8. History of coronary artery disease with stent placement. 9. Chronic pain syndrome. 10.Rheumatoid arthritis. 11.Deep vein thrombosis. 12.Gastroesophageal reflux disease. 13.Hypertension. 14.Degenerative joint disease. 15.Multiple other medical problems and comorbidities. PLAN: Please see my orders. The patient should be on a short-acting beta agonist, short- acting muscarinic antagonist, long-acting beta agonist, inhaled corticosteroids, and systemic steroids. The patient looks rather good. From the pulmonary standpoint could be discharged home either later today or tomorrow. He needs follow up in the office for pulmonary function testing. That way we can determine the type of lung disease he has and the severity of his lung disease. Additional recommendations and suggestions are forthcoming. MMODL / IJN: [id number] /
[2019-05-18 20:06] LABS: Glucose,Whole Blood 199 mg/dL (75-99)
[2019-05-18] MEDS: hydrOXYzine HCL 25 MG TAB PO SCH (20:54)
[2019-05-19 06:53] LABS: Glucose,Whole Blood 142 mg/dL (75-99)
[2019-05-19] MEDS: SYMBICORT 160-4.5 MCG INHALER INHALATION SCH ×2 (07:09→21:03)
[2019-05-19] MEDS: IPRATROPIUM-ALBUTEROL 3 ML NEB INHALATION SCH ×4 (07:09→21:03)
--- NOTE | 2019-05-19 08:06 | PN ---
PROGRESS NOTE DATE OF SERVICE: May 19, 2019 This is a 63-year-old [place] man that I saw yesterday in consultation, down in the OBS unit. He was admitted with a diagnosis of COPD exacerbation. Heavy tobacco use in the past. The patient came in with a COPD exacerbation characterized by shortness of breath, chest tightness, wheezing, cough and minimal phlegm. Today, in my opinion he is doing much better and could be possibly discharged from the hospital. We will leave that up to the primary. The patient still has some mild shortness of breath. He will need to be assessed for home oxygen therapy. In followup, he will need to see one of the barrel coater for pulmonary function testing and better classification and disease severity of his underlying COPD. In addition, he has a history of psoriasis, peripheral vascular occlusive disease, chronic tobacco dependence, hypertension, anxiety/depression, gout, CAD with stent placement, chronic pain syndrome, rheumatoid arthritis, DVT, GERD, hypertension, and multiple other medical problems and comorbidities. PHYSICAL EXAMINATION: VITAL SIGNS: Currently, the patient has a temperature 98.2, heart rate 72, respiratory rate 18, blood pressure 121/64 and 3 L saturation 99%. No room-air saturation documented. He appears in no acute distress. Eating breakfast. HEENT: Examination is grossly unremarkable. Mucous membranes are moist. Nasal O2 noted. NECK: Supple. Full range of motion. No adenopathy or thyromegaly. Neck veins are flat. CARDIOVASCULAR: Examination reveals regular rhythm and rate. Heart rate 72. S1, S2 normal. LUNGS: Reveal a few scattered mild rhonchi and wheezes. Breath sounds are dramatically improved. Breath sounds are equal bilaterally. No crackles. ABDOMEN: Soft. Bowel sounds are heard. EXTREMITIES: Are intact. No cyanosis, clubbing, or edema. SKIN: Without rash except for his known history of psoriasis. That is chronic. NEUROLOGIC: Examination is brief but nonfocal. LABS: Labs are reviewed. No new labs today. X-RAY: Chest x-ray showed no acute abnormality. MEDICATIONS: Current medications are reviewed. From the pulmonary standpoint, they are appropriate. ASSESSMENT: 1. Chronic obstructive pulmonary disease exacerbation in a patient with probable underlying chronic obstructive pulmonary disease from chronic tobacco use, although the patient has never had formal evaluation by one of the barrel coater or had pulmonary function testing. 2. History of psoriasis, a bit more active at this time. 3. Significant peripheral vascular occlusive disease. 4. History of chronic tobacco dependence for more than 40 years. 5. Benign essential hypertension. 6. History of anxiety/depression. 7. History of gout. 8. Coronary artery disease with previous stent placement. 9. Chronic pain syndrome. 10.Rheumatoid arthritis. 11.Deep venous thrombosis. 12.Gastroesophageal reflux disease. 13.Degenerative joint disease. PLAN: From my perspective, the patient could be discharged. He should be sent home on DuoNeb which is albuterol and Atrovent updrafts to be used q.i.d. and p.r.n. The patient should also be sent home on Symbicort 160/4.5, two puffs twice a day. Alternatives would include Advair Diskus 500/50 one puff twice a day or Advair HFA 230/21 2 puffs twice a day, Breo 200/25, one puff a day and/or Dulera 200/5, two puffs twice a day. The patient should also be discharged home on some prednisone with a burst and taper. I would start off with 40 or 50 mg a day and reduce the dose by 10 mg every 4th day until it is completely weaned off. Likely send the patient home on some short course of antibiotics 3 to 5 days of something common such as Bactrim, Augmentin, doxycycline, Ceftin, Omnicef, etc. The patient will need to be assessed for home O2. That should include a resting room air saturation and a walking desaturation down the hallway. Finally, the patient should follow up with one of the pulmonologists for PFT testing and further classification and disease severity of his underlying COPD. Additional recommendations and suggestions are forthcoming. Prognosis is guarded. MMODL / IJN: [id number] /
[2019-05-19] MEDS: INSULIN ASPART (NovoLOG) 100 UNIT/ML VIAL SQ SCH ×4 (09:29→21:45)
--- NOTE | 2019-05-19 09:55 | P.DS ---
Providers Date of admission: 05/17/19 16:50 Expected date of discharge: 05/19/19 Attending physician: David Woodson Consults: 05/18/19 09:05 Consult Physician Routine Consulting Provider: Steve Maldonado Consult Reason/Comments: EKG changes Do you want consulting provider notified?: Already Contacted 05/18/19 09:43 Consult Physician Routine Consulting Provider: Zelalem Bermudez Reason/Comments: COPD Do you want consulting provider notified?: Yes Primary care physician: David Woodson Hospital Course: Final Diagnosses: EKG changes, possible acute; cardiology following -Extensive psoriasis -COPD -Acute hypoxic, hypercapnic respiratory failure secondary to the above -Ongoing nicotine dependence -CAD -Gastroesophageal reflux disease -Rheumatoid and osteoarthritis -Hypertension -History of DVT -Bedbugs, unlikely -Anxiety Hospital course:This is a 63-year-old gentleman with medical history of CAD, COPD, DVT, gastroesophageal reflux disease, hypertension, rheumatoid and osteoarthritis, extensive psoriasis, ongoing nicotine dependence and multiple other medical issues, presented to the ER with worsening shortness of breath, worsening psoriasis, chills, no fever, generalized whole body achiness. Denies chest pain, palpitations. Denies nausea vomiting or diarrhea. Denies abdominal pain. Denies any infected, draining lesions. EKG reporting normal sinus rhythm with right bundle branch block, T-wave abnormality with possible inferior ischemia. Troponins 0.026, 0.021, 0.023.Chest x-ray nonacute. Afebrile, normal WBC. Hemoglobin 10.7, platelets 283. Sodium 140, potassium 5.2, chloride 19 CO2 22 BUN 16, creatinine 0.88. Mild elevation of ALT 20. UA negative. Patient also presented with bedbugs. After receiving nebulizer treatment this morning developed sinus tachycardia with heart rates up to 140, respiratory distress, anxiety, staff reports appear to have a panic attack. Xanax prescribed, Hospital pharmacy does not stock Xopenex, therefore unable to convert nebulized treatment-patient is on albuterol nebulizer at home. Currently maintaining O2 sats of 96% on 3 L nasal cannula O2, VSS. Denies chest pain, palpitations. Denies lightheadedness dizziness or focal deficits. Systemic steroids initiated. Cardiology and pulmonary consulted. Evaluated by pulmonary, recommendations noted. Maintained on nebulized bronchodilators, steroids,LABA with significant clinical improvement. Patient will be discharged home today in a stable condition with guarded prognosis pending cardiology recommendations/final DC recommendations and clearance. EXAM: GENERAL: And up 3, no acute distress CARDIOVASCULAR: S1, S2 regular.. No murmur RESPIRATION: Breath sounds diminished in the bases. No rhonchi or crackles. Improved expiratory bilateral wheezing ABDOMEN: Soft, nontender . No guarding. no masses palpable.Bowel sounds heard. NERVOUS SYSTEM:No focal deficits. Skin: Extensive psoriasis. Evaluated by Dr. Chintan harrison, psoriasis significantly improved. The impression and plan of care has been dictated as directed. : I performed a history and examination of this patient, discussed the same with the dictator. I agree with the dictator's note ,documented as a scribe. Any additional findings or plans will be noted. Time taken: 35 minutes Patient Condition at Discharge: Stable Plan - Discharge Summary Discharge Rx Participant: No New Discharge Prescriptions: New predniSONE 10 mg PO DIRECTED #30 tab Budesonide-Formot 160-4.5 Mcg [Symbicort 160-4.5 Mcg Inhaler] 2 puff INHALATION RT-BID #1 inh Ipratropium-Albuterol Nebulize [Duoneb 0.5 mg-3 mg/3 ml Soln] 3 ml INHALATION QID #120 neb Continue Citalopram Hydrobromide [Citalopram HBr] 20 mg PO QAM Lisinopril [Zestril] 10 mg PO QAM Aspirin [Adult Low Dose Aspirin EC] 81 mg PO DAILY Clopidogrel [Plavix] 75 mg PO QAM Allopurinol [Zyloprim] 300 mg PO DAILY hydrOXYzine HCL 25 mg PO HS Famotidine [Pepcid] 20 mg PO QAM traMADol HCL [Ultram] 50 mg PO Q12H Cetirizine HCl [Zyrtec] 10 mg PO DAILY Donepezil HCl [Aricept] 5 mg PO DAILY Gabapentin [Neurontin] 300 mg PO TID Flaxseed Oil 1200mg 1,200 mg PO DAILY Adalimumab [Humira Pen Crohn's-Uc-Hs] 40 mg SQ TH Changed Albuterol Sulfate [Proair Hfa] 2 puff INHALATION RT-Q6H #1 inhaler Discharge Medication List Citalopram Hydrobromide [Citalopram HBr] 20 mg PO QAM 04/05/14 [History] Lisinopril [Zestril] 10 mg PO QAM 09/14/14 [History] Aspirin [Adult Low Dose Aspirin EC] 81 mg PO DAILY 09/17/17 [History] Allopurinol [Zyloprim] 300 mg PO DAILY 09/18/17 [History] Clopidogrel [Plavix] 75 mg PO QAM 09/18/17 [History] hydrOXYzine HCL 25 mg PO HS 09/18/17 [History] Famotidine [Pepcid] 20 mg PO QAM 07/12/18 [History] Cetirizine HCl [Zyrtec] 10 mg PO DAILY 09/29/18 [History] traMADol HCL [Ultram] 50 mg PO Q12H 09/29/18 [History] Donepezil HCl [Aricept] 5 mg PO DAILY 10/06/18 [History] Adalimumab [Humira Pen Crohn's-Uc-Hs] 40 mg SQ TH 05/17/19 [History] Flaxseed Oil 1200mg 1,200 mg PO DAILY 05/17/19 [History] Gabapentin [Neurontin] 300 mg PO TID 05/17/19 [History] Albuterol Sulfate [Proair Hfa] 2 puff INHALATION RT-Q6H #1 inhaler 05/19/19 [Rx] Budesonide-Formot 160-4.5 Mcg [Symbicort 160-4.5 Mcg Inhaler] 2 puff INHALATION RT-BID #1 inh 05/19/19 [Rx] Ipratropium-Albuterol Nebulize [Duoneb 0.5 mg-3 mg/3 ml Soln] 3 ml INHALATION QID #120 neb 05/19/19 [Rx] predniSONE 10 mg PO DIRECTED #30 tab 05/19/19 [Rx] Follow up Appointment(s)/Referral(s): David Woodson DO [Primary Care Provider] - 3 Days Zelalem Bermudez DO [Doctor of Osteopathic Medicine] - 2 Weeks Activity/Diet/Wound Care/Special Instructions: Pending final DC recommendations and clearance from cardiology .Case management to arrange for nebulizer , possible O2. RN obtaining O2 sat on room air after ambulation.
--- NOTE | 2019-05-19 11:52 | P.CRDCN ---
<Casandra Benitez - Last Filed: 05/19/19 11:51> History of Present Illness History of present illness: This is Casandra Benitez PA-C dictating a consult on this patient The patient was interviewed and examined by me as well as by Dr. Maldonado Case discussed with Dr. Maldonado and he agrees with the plan of care IMPRESSION / ASSESSMENT: Progressive shortness of breath over the last 3 weeks, appears to be related to his COPD but he does have EKG changes that are new since 2018 as well as a history of CAD status post stenting Current smoker COPD PLAN: 2-D echo and Doppler study to assess cardiac structure and function Recommend further cardiac workup to rule out ischemia in light of his EKG changes and history of coronary artery disease Smoking cessation advised Start atorvastatin 20 mg daily Continue aspirin HPI Patient is a 63-year-old male with a past medical history of COPD, CAD status post stenting, and psoriasis who presented with complaints of increasing shortness of breath. He had been experiencing worsening shortness of breath for the last 3-4 weeks. Denies chest pain but did have some right shoulder pain. He believes he may have pulled a muscle. Denied dizziness, lightheadedness or syncope. Upon presentation to the hospital his vital signs were stable. Initial EKG showed sinus rhythm with a right bundle branch block and ST depressions in the lateral leads which are new compared to a prior EKG in 2018. Troponins were normal 2. Chest x-ray showed underlying COPD but was negative for acute pulmonary process. Patient seen and examined lying in bed. States his breathing has improved somewhat with the steroids and breathing treatments. The shoulder pain is resolved. Denies any chest pain, dizziness, lightheadedness or syncope. Denies history of diabetes Smokes about a pack a day for 45 years ROS: No fevers, chills or rigors, no nausea, vomiting or diarrhea, no hematuria, dysuria, Positive for shoulder pain no strokes or seizures, Positive for psoriasis EXAMINATION: Pressure 98.7F, pulse 79, respirations 18, blood pressure 132/66, oxygen saturation 98% on 2 L nasal cannula Patient seen and examined resting in bed, in no acute distress Lungs are diminished bilaterally, diffuse expiratory wheezing throughout Heart is regular, normal S1 and S2, no murmurs appreciated No lower extremity edema noted REVIEW OF LABS, ECG & MEDICAL DATA Chest x-ray showed underlying COPD with no acute cardiopulmonary process Initial EKG showed sinus rhythm with a right bundle branch block and ST depression in the lateral leads WBC 6.7, hemoglobin 10.7, platelets 283, potassium 5.7, BUNs 16, creatinine 0.88 Troponin normal 2 Past Medical History Past Medical History: Coronary Artery Disease (CAD), COPD, Deep Vein Thrombosis (DVT), GERD/Reflux, Hypertension, Osteoarthritis (OA), Rheumatoid Arthritis (RA), Skin Disorder Additional Past Medical History / Comment(s): Multiple dislocations of left total hip, psoriasis, Gout, Hx of DVT both legs. 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 Left Hip replacement, cataract eye sx. lt ankle has screws. LAPARASCOPIC SHANTANU FUNDOPLASTY. 10/06/2018 LSFA STENT AND ARTHRECTOMY Past Anesthesia/Blood Transfusion Reactions: Previous Problems w/ Anesthesia Additional Past Anesthesia/Blood Transfusion Reaction / Comment(s): "HAS CONFUSION AND DISORIENTATION POST ANESTHESIA " on occasion Date of Last Stent Placement:: 2012 Past Psychological History: No Psychological Hx Reported Smoking Status: Current every day smoker Past Alcohol Use History: None Reported Additional Past Alcohol Use History / Comment(s): Started smoking at age 15- smoked 2 ppd, quit 2010. Started again 2016, less than 1ppd Past Drug Use History: None Reported - Past Family History Mother Family Medical History: No Reported History Additional Family Medical History / Comment(s): Father History Unknown: Yes Family Medical History: Unable to Obtain Medications and Allergies Home Medications Medication Instructions Recorded Confirmed Type Citalopram Hydrobromide 20 mg PO QAM 04/05/14 05/17/19 History [Citalopram HBr] Lisinopril [Zestril] 10 mg PO QAM 09/14/14 05/17/19 History Aspirin [Adult Low Dose Aspirin EC] 81 mg PO DAILY 09/17/17 05/17/19 History Allopurinol [Zyloprim] 300 mg PO DAILY 09/18/17 05/17/19 History Clopidogrel [Plavix] 75 mg PO QAM 09/18/17 05/17/19 History hydrOXYzine HCL 25 mg PO HS 09/18/17 05/17/19 History Famotidine [Pepcid] 20 mg PO QAM 07/12/18 05/17/19 History Cetirizine HCl [Zyrtec] 10 mg PO DAILY 09/29/18 05/17/19 History traMADol HCL [Ultram] 50 mg PO Q12H 09/29/18 05/17/19 History Donepezil HCl [Aricept] 5 mg PO DAILY 10/06/18 05/17/19 History Adalimumab [Humira Pen 40 mg SQ TH 05/17/19 05/17/19 History Crohn's-Uc-Hs] Flaxseed Oil 1200mg 1,200 mg PO DAILY 05/17/19 05/17/19 History Gabapentin [Neurontin] 300 mg PO TID 05/17/19 05/17/19 History Albuterol Sulfate [Proair Hfa] 2 puff INHALATION RT-Q6H #1 inhaler 05/19/19 Rx Budesonide-Formot 160-4.5 Mcg 2 puff INHALATION RT-BID #1 inh 05/19/19 Rx [Symbicort 160-4.5 Mcg Inhaler] Ipratropium-Albuterol Nebulize 3 ml INHALATION QID #120 neb 05/19/19 Rx [Duoneb 0.5 mg-3 mg/3 ml Soln] predniSONE 10 mg PO DIRECTED #30 tab 05/19/19 Rx Atorvastatin [Lipitor] 40 mg PO HS #30 tab 05/20/19 Rx Allergies Allergy/AdvReac Type Severity Reaction Status Date / Time No Known Allergies Allergy Verified 05/17/19 14:54 Physical Exam Vitals: Vital Signs Temp Pulse Pulse Resp BP Pulse Ox 05/19/19 10:03 20 92 L 05/19/19 10:02 16 96 05/19/19 08:00 97.7 F 73 19 126/68 98 05/19/19 07:23 83 05/19/19 07:09 79 98 05/19/19 04:00 98.2 F 72 18 121/64 99 05/19/19 00:00 97.7 F 74 18 118/63 98 05/18/19 19:51 97.6 F 92 78 18 125/65 97 05/18/19 19:42 90 20 05/18/19 16:00 97.6 F 76 20 123/61 97 05/18/19 12:00 98.1 F 84 18 119/56 96 05/18/19 10:53 89 18 05/18/19 10:41 84 18 Intake and Output 05/18/19 05/19/19 05/19/19 22:59 06:59 14:59 Output Total 400 Balance -400 Output: Urine 400 Other: Voiding Method Toilet Toilet Toilet # Voids 1 1 1 Results 05/17/19 14:51 05/17/19 14:51 Current Medications Generic Name Dose Route Start Last Admin Trade Name Freq PRN Reason Stop Dose Admin Acetaminophen 650 mg 05/18/19 17:47 05/18/19 17:56 Tylenol Tab PO 650 mg Q4HR PRN Administration Fever and/ or Pain Albuterol/Ipratropium 3 ml 05/18/19 12:00 05/19/19 07:09 Duoneb 0.5 Mg-3 Mg/3 Ml Soln INHALATION 3 ml RT-QID JACINTO Administration Albuterol/Ipratropium 3 ml 05/18/19 09:39 Duoneb 0.5 Mg-3 Mg/3 Ml Soln INHALATION Q4H PRN Shortness Of Breath Or Wheezing Allopurinol 300 mg 05/18/19 09:00 05/18/19 13:20 Zyloprim PO 300 mg DAILY JACINTO Administration Alprazolam 0.25 mg 05/18/19 09:33 05/18/19 20:54 Xanax PO 0.25 mg Q8H PRN Administration Anxiety Aspirin 81 mg 05/18/19 09:00 05/18/19 07:56 Aspirin PO 81 mg DAILY JACINTO Administration Budesonide/Formoterol Fumarate 2 puff 05/18/19 09:42 05/19/19 07:09 Symbicort 160-4.5 Mcg Inhaler INHALATION 2 puff RT-BID JACINTO Administration Citalopram Hydrobromide 20 mg 05/18/19 09:00 05/18/19 11:26 Celexa PO 20 mg QAM JACINTO Administration Clopidogrel Bisulfate 75 mg 05/18/19 09:00 05/18/19 11:26 Plavix PO 75 mg QAM JACINTO Administration Donepezil HCl 5 mg 05/18/19 09:00 05/18/19 13:20 Aricept PO 5 mg DAILY JACINTO Administration Famotidine 20 mg 05/18/19 09:00 05/18/19 11:26 Pepcid PO 20 mg QAM JACINTO Administration Gabapentin 300 mg 05/17/19 23:30 05/18/19 20:54 Neurontin PO 300 mg TID JACINTO Administration Hydroxyzine HCl 25 mg 05/17/19 23:30 05/18/19 20:54 Atarax PO 25 mg HS JACINTO Administration Insulin Aspart 0 unit 05/18/19 12:30 05/19/19 09:29 Novolog SQ Not Given ACHS JACINTO Protocol Lisinopril 10 mg 05/18/19 09:00 05/18/19 07:56 Zestril PO 10 mg QAM JACINTO Administration Loratadine 10 mg 05/18/19 09:00 05/18/19 11:26 Claritin PO 10 mg DAILY JACINTO Administration Methylprednisolone Sodium Succinate 40 mg 05/18/19 16:00 05/18/19 23:49 Solu-Medrol IV 40 mg Q8HR JACINTO Administration Pantoprazole Sodium 40 mg 05/18/19 13:15 05/18/19 17:02 Protonix IVP Not Given DAILY JACINTO Tramadol HCl 50 mg 05/17/19 23:30 05/18/19 23:49 Ultram PO 50 mg Q12H JACINTO Administration Intake and Output 05/18/19 05/19/19 05/19/19 22:59 06:59 14:59 Output Total 400 Balance -400 Output: Urine 400 Other: Voiding Method Toilet Toilet Toilet # Voids 1 1 1 05/17/19 14:51 05/17/19 14:51 <Steve Maldonado - Last Filed: 05/20/19 12:51> History of Present Illness History of present illness: Discussed with Dr. Woodson and nurse practitioner Dimitris Patient go home today and follow Dr. Howell in a week for outpatient workup of coronary artery disease Physical Exam Vitals: Vital Signs Temp Pulse Pulse Pulse Resp BP BP 05/20/19 12:09 94 05/20/19 12:00 76 16 140/65 05/20/19 11:59 92 05/20/19 08:10 88 05/20/19 08:01 88 05/20/19 08:00 97.3 F L 75 16 132/60 05/20/19 04:00 97.7 F 73 18 114/55 05/19/19 23:43 97.5 F L 65 16 118/59 05/19/19 21:17 92 05/19/19 21:04 96 05/19/19 19:48 98.2 F 82 18 134/73 05/19/19 16:00 97.8 F 79 82 17 117/56 Pulse Ox 05/20/19 12:09 05/20/19 12:00 94 L 05/20/19 11:59 05/20/19 08:10 05/20/19 08:01 05/20/19 08:00 94 L 05/20/19 04:00 92 L 05/19/19 23:43 93 L 05/19/19 21:17 05/19/19 21:04 05/19/19 19:48 97 05/19/19 16:00 96 Intake and Output 05/19/19 05/20/19 05/20/19 22:59 06:59 14:59 Other: Voiding Method Toilet Toilet Toilet # Voids 3 2 Results 05/20/19 08:52 05/20/19 08:52 CBC 05/20/19 Range/Units 08:52 WBC 8.4 (3.8-10.6) k/uL RBC 3.84 L (4.30-5.90) m/uL Hgb 11.0 L (13.0-17.5) gm/dL Hct 36.3 L (39.0-53.0) % Plt Count 291 (150-450) k/uL Comprehensive Metabolic Panel 05/20/19 Range/Units 08:52 Sodium 139 (137-145) mmol/L Potassium 5.2 H (3.5-5.1) mmol/L Chloride 108 H (98-107) mmol/L Carbon Dioxide 23 (22-30) mmol/L BUN 15 (9-20) mg/dL Creatinine 0.73 (0.66-1.25) mg/dL Glucose 128 H (74-99) mg/dL Calcium 8.8 (8.4-10.2) mg/dL Current Medications Generic Name Dose Route Start Last Admin Trade Name Freq PRN Reason Stop Dose Admin Acetaminophen 650 mg 05/18/19 17:47 05/19/19 21:45 Tylenol Tab PO 650 mg Q4HR PRN Administration Fever and/ or Pain Albuterol/Ipratropium 3 ml 05/18/19 12:00 05/20/19 11:59 Duoneb 0.5 Mg-3 Mg/3 Ml Soln INHALATION 3 ml RT-QID JACINTO Administration Albuterol/Ipratropium 3 ml 05/18/19 09:39 Duoneb 0.5 Mg-3 Mg/3 Ml Soln INHALATION Q4H PRN Shortness Of Breath Or Wheezing Allopurinol 300 mg 05/18/19 09:00 05/20/19 09:01 Zyloprim PO 300 mg DAILY JACINTO Administration Alprazolam 0.25 mg 05/18/19 09:33 05/19/19 21:45 Xanax PO 0.25 mg Q8H PRN Administration Anxiety Aspirin 81 mg 05/18/19 09:00 05/20/19 09:00 Aspirin PO 81 mg DAILY JACINTO Administration Atorvastatin Calcium 40 mg 05/19/19 21:00 05/19/19 21:45 Lipitor PO 40 mg HS JACINTO Administration Budesonide/Formoterol Fumarate 2 puff 05/18/19 09:42 05/20/19 08:01 Symbicort 160-4.5 Mcg Inhaler INHALATION 2 puff RT-BID JACINTO Administration Citalopram Hydrobromide 20 mg 05/18/19 09:00 05/20/19 09:01 Celexa PO 20 mg QAM JACINTO Administration Clopidogrel Bisulfate 75 mg 05/18/19 09:00 05/20/19 09:01 Plavix PO 75 mg QAM JACINTO Administration Donepezil HCl 5 mg 05/18/19 09:00 05/20/19 09:01 Aricept PO 5 mg DAILY JACINTO Administration Gabapentin 300 mg 05/17/19 23:30 05/20/19 09:00 Neurontin PO 300 mg TID JACINTO Administration Hydroxyzine HCl 25 mg 05/17/19 23:30 05/19/19 21:45 Atarax PO 25 mg HS JACINTO Administration Insulin Aspart 0 unit 05/18/19 12:30 05/20/19 12:35 Novolog SQ 6 unit ACHS JACINTO Administration Protocol Lisinopril 10 mg 05/18/19 09:00 05/20/19 09:00 Zestril PO 10 mg QAM JACINTO Administration Loratadine 10 mg 05/18/19 09:00 05/20/19 09:01 Claritin PO 10 mg DAILY JACINTO Administration Methylprednisolone Sodium Succinate 40 mg 05/18/19 16:00 05/20/19 08:59 Solu-Medrol IV 40 mg Q8HR JACINTO Administration Pantoprazole Sodium 40 mg 05/20/19 07:30 05/20/19 09:01 Protonix PO 40 mg [id number] JACINTO Administration Tramadol HCl 50 mg 05/17/19 23:30 05/20/19 11:31 Ultram PO 50 mg Q12H JACINTO Administration Intake and Output 05/19/19 05/20/19 05/20/19 22:59 06:59 14:59 Other: Voiding Method Toilet Toilet Toilet # Voids 3 2 05/20/19 08:52 05/20/19 08:52
[2019-05-19 12:09] LABS: Glucose,Whole Blood 108 mg/dL (75-99)
[2019-05-19 12:19] LABS: Hemoglobin A1C 6.3 % (4.0-6.0)
[2019-05-19] MEDS: PANTOPRAZOLE 40 MG/10 ML VIAL IVP SCH (12:22)
[2019-05-19] MEDS: traMADol 50 MG TAB PO SCH (12:22)
[2019-05-19] MEDS: ALLOPURINOL 300 MG TAB PO SCH (12:23)
[2019-05-19] MEDS: GABAPENTIN 300 MG CAP PO SCH ×3 (12:23→21:45)
[2019-05-19] MEDS: LISINOPRIL 10 MG TAB PO SCH (12:23)
[2019-05-19] MEDS: LORATADINE 10 MG TAB PO SCH (12:23)
[2019-05-19] MEDS: DONEPEZIL 5 MG TAB PO SCH (12:24)
[2019-05-19] MEDS: methylPREDNISolone SOD SUCCI 40 MG/ML 1 ML VIAL IV SCH ×2 (12:24→17:14)
[2019-05-19] MEDS: CLOPIDOGREL 75 MG TAB PO SCH (12:24)
[2019-05-19] MEDS: ASPIRIN 81 MG PO SCH (12:24)
[2019-05-19] MEDS: FAMOTIDINE 20 MG TAB PO SCH (12:24)
[2019-05-19] MEDS: CITALOPRAM HYDROBROMIDE 20 MG TAB PO SCH (12:24)
[2019-05-19 16:52] LABS: Glucose,Whole Blood 149 mg/dL (75-99)
--- NOTE | 2019-05-19 16:59 | P.PN ---
Subjective Progress Note Date: 05/19/19 This is a 63-year-old gentleman with medical history of CAD, COPD, DVT, gastroesophageal reflux disease, hypertension, rheumatoid and osteoarthritis, extensive psoriasis, ongoing nicotine dependence and multiple other medical issues, presented to the ER with worsening shortness of breath, worsening psoria sis, chills, no fever, generalized whole body achiness. Denies chest pain, palpitations. Denies nausea vomiting or diarrhea. Denies abdominal pain. Denies any infected, draining lesions. EKG reporting normal sinus rhythm with right bundle branch block, T-wave abnormality with possible inferior ischemia. Troponins 0.026, 0.021, 0.023.Chest x-ray nonacute. Afebrile, normal WBC. Hemoglobin 10.7, platelets 283. Sodium 140, potassium 5.2, chloride 19 CO2 22 BUN 16, creatinine 0.88. Mild elevation of ALT 20. UA negative. Patient also presented with bedbugs. After receiving nebulizer treatment this morning developed sinus tachycardia with heart rates up to 140, respiratory distress, anxiety, staff reports appear to have a panic attack. Xanax prescribed, Hospital pharmacy does not stock Xopenex, therefore unable to convert nebulized treatment-patient is on albuterol nebulizer at home. Currently maintaining O2 sats of 96% on 3 L nasal cannula O2, VSS. Denies chest pain, palpitations. Denies lightheadedness dizziness or focal deficits. Systemic steroids initiated. Cardiology and pulmonary consulted. Evaluated by pulmonary, recommendations noted. Maintained on nebulized br onchodilators steroids, long-acting beta agonist. Evaluated by cardiology, echo ordered. Recommending further cardiac workup pending pulmonary function optimized. Denies chest pain. Denies lightheadedness dizziness or focal deficits. Objective - Vital Signs Vital signs: Vital Signs Temp 98.2 F 05/19/19 12:00 Pulse 73 05/19/19 16:00 Resp 19 05/19/19 16:00 BP 145/71 05/19/19 12:00 Pulse Ox 98 05/19/19 12:00 Intake & Output 05/18/19 05/19/19 05/19/19 18:59 06:59 18:59 Intake Total 240 300 Output Total 400 Balance 240 -100 Intake: Oral 240 300 Output: Urine 400 Other: Voiding Method Toilet Toilet Toilet # Voids 1 1 3 - Exam VITAL SIGNS: As above GENERAL: Sitting up in bed, no acute distress HEENT: Conjunctivae normal. eyes normal. NECK: No JVD. No thyroid enlargement. No LNs CARDIOVASCULAR: S1, S2 regular. No murmur RESPIRATION: Breath sounds diminished in the bases. No rhonchi or crackles. Inspiratory and expiratory bilateral wheezing ABDOMEN: Soft, nontender . No guarding. no masses palpable. No ascites, No hepatosplenomegaly.Bowel sounds heard. LEGS: No edema. no swelling PSYCHIATRY: Alert and oriented X3, mood and affect normal. NERVOUS SYSTEM: Cranial N 2-12 grossly normal. Moves all 4 limbs. Diffuse weakness No focal deficits. Strength and sensation grossly intact.. Skin: Extensive psoriasis,significantly improved;Dry, no drainage. Joints: No active swelling. No inflammation. - Labs CBC & Chem 7: 05/17/19 14:51 05/17/19 14:51 Labs: Abnormal Lab Results - Last 24 Hours (Table) 05/17/19 05/18/19 05/18/19 Range/Units 14:51 16:37 20:03 POC Glucose (mg/dL) 152 H 199 H (75-99) mg/dL Hemoglobin A1c 6.3 H (4.0-6.0) % 05/19/19 05/19/19 Range/Units 06:52 12:08 POC Glucose (mg/dL) 142 H 108 H (75-99) mg/dL Hemoglobin A1c (4.0-6.0) % Microbiology - Last 24 Hours (Table) 05/17/19 15:02 Urine Culture - Final Urine,Clean Catch 05/17/19 14:51 Blood Culture - Preliminary Blood No Growth after 24 hours Assessment and Plan Assessment: EKG changes, possible acute -Extensive psoriasis -COPD -Acute hypoxic, hypercapnic respiratory failure secondary to the above -Ongoing nicotine dependence -CAD -Gastroesophageal reflux disease -Rheumatoid and osteoarthritis -Hypertension -History of DVT -Bedbugs -Anxiety Plan: Continue current medication regime ,PPI, Aspirin, Statin, monitoring and symptomatic treatment. Optimize lung function with potential cardiac cath to follow.Continue on nebulized bronchodilators, steroids, Symbicort.Echo pending. Smoking cessation reinforced. The impression and plan of care has been dictated as directed. : I performed a history and examination of this patient, discussed the same with the dictator. I agree with the dictator's note ,documented as a scribe. Any additional findings or plans will be noted. Time taken: 35 minutes
[2019-05-19 20:21] LABS: Glucose,Whole Blood 160 mg/dL (75-99)
[2019-05-19] MEDS ORDERED: ATORVASTATIN 40 MG TAB PO SCH (21:00)
[2019-05-19] MEDS: ACETAMINOPHEN TAB 325 MG TAB PO PRN (21:45)
[2019-05-19] MEDS: ALPRAZolam 0.25 MG TAB PO PRN (21:45)
[2019-05-19] MEDS: hydrOXYzine HCL 25 MG TAB PO SCH (21:45)
[2019-05-20] MEDS: traMADol 50 MG TAB PO SCH ×2 (00:36→11:31)
[2019-05-20] MEDS: methylPREDNISolone SOD SUCCI 40 MG/ML 1 ML VIAL IV SCH ×2 (00:36→08:59)
[2019-05-20 07:04] LABS: Glucose,Whole Blood 150 mg/dL (75-99)
[2019-05-20] MEDS ORDERED: PANTOPRAZOLE 40 MG TABLET PO SCH (07:30)
[2019-05-20] MEDS: SYMBICORT 160-4.5 MCG INHALER INHALATION SCH (08:01)
[2019-05-20] MEDS: IPRATROPIUM-ALBUTEROL 3 ML NEB INHALATION SCH ×2 (08:01→11:59)
[2019-05-20] MEDS: INSULIN ASPART (NovoLOG) 100 UNIT/ML VIAL SQ SCH ×2 (08:59→12:35)
[2019-05-20] MEDS: GABAPENTIN 300 MG CAP PO SCH (09:00)
[2019-05-20] MEDS: LISINOPRIL 10 MG TAB PO SCH (09:00)
[2019-05-20] MEDS: ASPIRIN 81 MG PO SCH (09:00)
[2019-05-20] MEDS: ALLOPURINOL 300 MG TAB PO SCH (09:01)
[2019-05-20] MEDS: CITALOPRAM HYDROBROMIDE 20 MG TAB PO SCH (09:01)
[2019-05-20] MEDS: DONEPEZIL 5 MG TAB PO SCH (09:01)
[2019-05-20] MEDS: LORATADINE 10 MG TAB PO SCH (09:01)
[2019-05-20] MEDS: CLOPIDOGREL 75 MG TAB PO SCH (09:01)
[2019-05-20 09:27] VITALS: RESP 16; TEMP 97.3
--- NOTE | 2019-05-20 09:27 | ECHOF ---
Referral Reason:Shortness of breath MEASUREMENTS -------- HEIGHT: 175.3 cm WEIGHT: 63.0 kg BP: 126/68 RVIDd: 3.9 cm (< 3.3) IVSd: 1.0 cm (0.6 - 1.1) LVIDd: 5.4 cm (3.9 - 5.3) LVPWd: 1.2 cm (0.6 - 1.1) IVSs: 1.3 cm LVIDs: 4.5 cm LVPWs: 1.6 cm LA Diam: 4.6 cm (2.7 - 3.8) LAESV Index (A-L): 46.77 ml/m Ao Diam: 2.7 cm (2.0 - 3.7) AV Cusp: 1.5 cm (1.5 - 2.6) LA Diam: 3.9 cm (2.7 - 3.8) MV EXCURSION: 19.089 mm (> 18.000) MV EF SLOPE: 63 mm/s (70 - 150) EPSS: 1.6 cm RAP: 5.00 mmHg RVSP: 30.70 mmHg FINDINGS -------- This was a technically good study. The left ventricular size is normal. There is moderate global hypokinesis of LV . Overall left ve ntricular systolic function is severely impaired with, an EF between 20 - 25 %. The right ventricle is normal in size. The left atrium is markedly dilated. LA is severely dilated >40 ml/m2 The right atrial size is normal. There is mild aortic valve sclerosis. There is no evidence of aortic regurgitation. Mild mitral annular calcification present. Mild mitral regurgitation is present. Mild tricuspid regurgitation present. There is no evidence of pulmonary hypertension. The right v entricular systolic pressure, as measured by Doppler, is 30.70mmHg. Trace/mild (physiologic) pulmonic regurgitation. The aortic root size is normal. There is no pericardial effusion. CONCLUSIONS -------- 1. The left ventricular size is normal. 2. There is moderate global hypokinesis of LV . 3. Overall left ventricular systolic function is severely impaired with, an EF between 20 - 25 %. 4. The right ventricle is normal in size. 5. The left atrium is markedly dilated. 6. LA is severely dilated >40 ml/m2 7. The right atrial size is normal. 8. There is mild aortic valve sclerosis. 9. Mild mitral annular calcification present. 10. Mild mitral regurgitation is present. 11. Mild tricuspid regurgitation present. 12. There is no evidence of pulmonary hypertension. 13. The right ventricular systolic pressure, as measured by Doppler, is 30.70mmHg. 14. Trace/mild (physiologic) pulmonic regurgitation. 15. The aortic root size is normal. 16. There is no pericardial effusion. LIQUOR MAKER: Daisy Ochoa RDCS
[2019-05-20 09:32] LABS: Anisocytosis Slight; Basophils % (A) 0 %; Eosinophils % (A) 0 %; HCT 36.3 % (39.0-53.0); Hypochromasia Moderate; Lymphocytes # (A) 0.6 k/uL (1.0-4.8); Lymphocytes % (A) 7 %; MCH 28.6 pg (25.0-35.0); MCHC 30.3 g/dL (31.0-37.0); MCV 94.5 fL (80.0-100.0); Mean Platelet Volume 7.3; Monocytes # (A) 0.2 k/uL (0-1.0); Monocytes % (A) 3 %; Neutrophils # (A) 7.3 k/uL (1.3-7.7); Neutrophils % (A) 87 %; Platelet Count 291 k/uL (150-450); RBC 3.84 m/uL (4.30-5.90); RDW 17.2 % (11.5-15.5); WBC 8.4 k/uL (3.8-10.6)
[2019-05-20 09:52] LABS: African American GFR (CKD) >90 (>60 ml/min/1.73 sqM); Anion Gap 8 mmol/L; Blood Urea Nitrogen 15 mg/dL (9-20); Calcium 8.8 mg/dL (8.4-10.2); Carbon Dioxide 23 mmol/L (22-30); Chloride 108 mmol/L (98-107); Glucose 128 mg/dL (74-99); Potassium 5.2 mmol/L (3.5-5.1); Sodium 139 mmol/L (137-145)
[2019-05-20 11:46] LABS: Glucose,Whole Blood 208 mg/dL (75-99)
[2019-05-20 12:09] VITALS: BP 140/65
[2019-05-20 12:49] VITALS: PULSE 76
== END 2019-05-20 13:44 | disposition home or self-care (01) | DRG 190 ==
LOC: EC 14:00 → 1SOBS 16:50 → OBSVTOIN 05-19 11:56
PROVIDERS: ADMIT Family Medicine; ATTEND Family Medicine
DX: J44.1 Chronic obstructive pulmonary disease with (acute) exacerbation (principal); J96.01 Acute respiratory failure with hypoxia; K50.90 Crohn's disease, unspecified, without complications; I43 Cardiomyopathy in diseases classified elsewhere; F17.200 Nicotine dependence, unspecified, uncomplicated; F32.9 Major depressive disorder, single episode, unspecified; F41.0 Panic disorder [episodic paroxysmal anxiety]; G89.4 Chronic pain syndrome; I25.10 Atherosclerotic heart disease of native coronary artery without angina pectoris; I45.10 Unspecified right bundle-branch block; K21.9 Gastro-esophageal reflux disease without esophagitis; L40.9 Psoriasis, unspecified; M06.9 Rheumatoid arthritis, unspecified; I11.9 Hypertensive heart disease without heart failure; I73.9 Peripheral vascular disease, unspecified; M10.9 Gout, unspecified; Z96.642 Presence of left artificial hip joint; M19.90 Unspecified osteoarthritis, unspecified site; Z79.02 Long term (current) use of antithrombotics/antiplatelets; Z79.51 Long term (current) use of inhaled steroids; Z79.52 Long term (current) use of systemic steroids; Z79.82 Long term (current) use of aspirin; Z79.899 Other long term (current) drug therapy; Z86.14 Personal history of Methicillin resistant Staphylococcus aureus infection; Z86.718 Personal history of other venous thrombosis and embolism; Z95.5 Presence of coronary angioplasty implant and graft; Z98.1 Arthrodesis status; Z98.49 Cataract extraction status, unspecified eye
CPT/HCPCS: 36415; 71046; 80048; 80053; 81001; 83036; 83605; 84484; 85025; 85610; 85730; 87040; 87086; 93005; 93306; 94640; 94760; 96361; 96374; 99285

== ENCOUNTER 2019-06-04 04:56 | Inpatient (IN) | payer MEDICARE ==
--- NOTE | 2019-06-04 05:12 | ED ---
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 Patient reports he just noticed the wound 2 days ago and over the past 24 hours wound has become significantly painful with purulent and bloody drainage. Patient reports that his foot has become swollen painful. Patient insists that the wound was not present greater than 2 days. Patient states he has had a wound similar to this in the past due to MRSA he followed with Dr. Barnett for infectious disease. In addition the patient has lived with Dr. Howell for peripheral arterial disease and has stents in his femoral artery per the patient. The patient reports the pain in his foot is 10 out of 10 in intensity burning and pressure. - Related Data Home Medications Medication Instructions Recorded Confirmed Citalopram Hydrobromide 20 mg PO QAM 04/05/14 06/04/19 [Citalopram HBr] Lisinopril [Zestril] 10 mg PO QAM 09/14/14 06/04/19 Aspirin [Adult Low Dose Aspirin EC] 81 mg PO DAILY 09/17/17 06/04/19 Allopurinol [Zyloprim] 300 mg PO DAILY 09/18/17 06/04/19 Clopidogrel [Plavix] 75 mg PO QAM 09/18/17 06/04/19 hydrOXYzine HCL 25 mg PO HS 09/18/17 06/04/19 Famotidine [Pepcid] 20 mg PO QAM 07/12/18 06/04/19 Cetirizine HCl [Zyrtec] 10 mg PO DAILY 09/29/18 06/04/19 traMADol HCL [Ultram] 50 mg PO Q12H 09/29/18 06/04/19 Donepezil HCl [Aricept] 5 mg PO DAILY 10/06/18 06/04/19 Adalimumab [Humira Pen 40 mg SQ TH 05/17/19 06/04/19 Crohn's-Uc-Hs] Flaxseed Oil 1200mg 1,200 mg PO DAILY 05/17/19 06/04/19 Gabapentin [Neurontin] 300 mg PO TID 05/17/19 06/04/19 Previous Rx's Medication Instructions Recorded Albuterol Sulfate [Proair Hfa] 2 puff INHALATION RT-Q6H #1 inhaler 05/19/19 Budesonide-Formot 160-4.5 Mcg 2 puff INHALATION RT-BID #1 inh 05/19/19 [Symbicort 160-4.5 Mcg Inhaler] Ipratropium-Albuterol Nebulize 3 ml INHALATION QID #120 neb 05/19/19 [Duoneb 0.5 mg-3 mg/3 ml Soln] predniSONE 10 mg PO DIRECTED #30 tab 05/19/19 Atorvastatin [Lipitor] 40 mg PO HS #30 tab 05/20/19 Allergies Allergy/AdvReac Type Severity Reaction Status Date / Time No Known Allergies Allergy Verified 06/03/19 16:09 Review of Systems ROS Statement: Those systems with pertinent positive or pertinent negative responses have been documented in the HPI. ROS Other: All systems not noted in ROS Statement are negative. Past Medical History Past Medical History: Coronary Artery Disease (CAD), COPD, Deep Vein Thrombosis (DVT), GERD/Reflux, Hypertension, Osteoarthritis (OA), Rheumatoid Arthritis (RA), Skin Disorder Additional Past Medical History / Comment(s): Multiple dislocations of left total hip, psoriasis, gout, hx of DVT both legs. Back and Hip pain. Current open left ankle wound. History of Any Multi-Drug Resistant Organisms: MRSA Date of last positivie culture/infection: 06/09/17 MDRO Source:: Left Ankle Past Surgical History: Back Surgery, Heart Catheterization With Stent, Joint Replacement, Orthopedic Surgery Additional Past Surgical History / Comment(s): 09/28/17 arthrectomy, balloon angioplasty with stent left SFA, Cardiac catheterization with 4 stents placed - 2012, stents placed in bilateral legs & thinks stents in abd aorta, Back surgery - fusion and anuel in back. Left Hip replacement, cataract eye sx. Left ankle has screws. LAPARASCOPIC SHANTANU FUNDOPLASTY. 10/06/2018 LSFA STENT AND ARTHRECTOMY. Past Anesthesia/Blood Transfusion Reactions: Previous Problems w/ Anesthesia Additional Past Anesthesia/Blood Transfusion Reaction / Comment(s): "HAS CONFUSION AND DISORIENTATION POST ANESTHESIA " on occasion. Date of Last Stent Placement:: 2012 Past Psychological History: No Psychological Hx Reported Smoking Status: Current every day smoker Past Alcohol Use History: None Reported Past Drug Use History: None Reported - Past Family History Mother Family Medical History: No Reported History Additional Family Medical History / Comment(s): Father History Unknown: Yes Family Medical History: Unable to Obtain General Exam - General Exam Comments Initial Comments: Physical Exam GENERAL: Appears older than stated age Appears uncomfortable Underweight HENT: Normocephalic, Atraumatic. EYES: PERRL, EOMI PULMONARY: Expiratory wheezing CARDIOVASCULAR: Tachycardic, regular ABDOMEN: Scaphoid SKIN: Chronic skin changes on the bilateral lower extremities are consistent with peripheral arterial disease, and addition there is significant excoriations of the bilateral lower extremities Left medial malleolus has an open ulcer with purulent bloody drainage, there is granulation tissue noted : Deferred NEUROLOGIC: Patient is alert and oriented x3. Moving all extremities spontaneously MUSCULOSKELETAL: Patient is atrophy of the muscles of his lower extremities consistent with advanced peripheral arterial disease PSYCHIATRIC: Normal psychiatric evaluation. Limitations: no limitations Course Vital Signs 06/04/19 05:01 Temperature 98.5 F Pulse Rate 104 H Respiratory 24 Rate Blood Pressure 158/70 O2 Sat by Pulse 100 Oximetry Medical Decision Making - Medical Decision Making The patient was seen and evaluated upon arrival to the emergency department for an history and physical exam are concerning for very significant infection in th e patient's foot The patient says this is new infection of the wound appears older appears to be granulation tissue excised. It workup was initiated During evaluation the patient was noted to have bedbugs crawling over his clothing Patient's clothing was removed patient was taken for decontamination Due to needing showering for decontamination there is a plane receiving the patient's blood however given the severity of his cellulitis, comorbidities including peripheral arterial disease and certainly patient will require inpatient admission for IV antibiotics. This plan was discussed with Gricelda the mid-level practitioner for [facility] who agrees with plan for admission and consults to Dr. Dee and Dr. Bearden infectious disease. At the time of admission no labs had resulted, however x-ray and resulted with no signs of free air or necrotizing fasciitis. Disposition Clinical Impression: Cellulitis, Lower extremity edema, COPD exacerbation, Bedbug bite, Peripheral arterial disease Disposition: ADMITTED IP TO THIS HOSP Condition: Stable Is patient prescribed a controlled substance at d/c from ED?: No
[2019-06-04] MEDS ORDERED: IBUPROFEN 400 MG TAB PO PRN (05:34)
[2019-06-04] MEDS ORDERED: ONDANSETRON 4 MG/2 ML VIAL IVP PRN (05:34)
[2019-06-04] MEDS ORDERED: ACETAMINOPHEN TAB 325 MG TAB PO PRN (05:34)
[2019-06-04] MEDS ORDERED: NALOXONE 0.4 MG/ML 1 ML VIAL IV PRN (05:34)
[2019-06-04] MEDS ORDERED: MORPHINE SULFATE 4 MG/ML SYRINGE IV PRN (05:34)
[2019-06-04] MEDS ORDERED: VANCOMYCIN IV PER PHARMACY 1 EACH MISC MISCELLANE PRN (05:43)
--- NOTE | 2019-06-04 06:20 | XR ---
INDICATION: Swelling, infection COMPARISON: None FINDINGS: AP and lateral views of the left foot are obtained. The bones are osteopenic. There is no evidence of acute fracture or malalignment. There are 2 screws fixating the medial malleolus. There is moderate-severe tibiotalar osteoarthritis. There is dorsal soft tissue swelling. IMPRESSION: 1. No acute fracture or subluxation identified. 2. Dorsal soft tissue swelling. No soft tissue gas. 3. Moderate to severe tibiotalar osteoarthritis.
[2019-06-04] MEDS ORDERED: IPRATROPIUM-ALBUTEROL 3 ML NEB INHALATION STA (06:55)
[2019-06-04] MEDS ORDERED: VANCOMYCIN 1,000 MG in SODIUM CHLORIDE 0.9% 250 ML IVPB ONE (07:00)
[2019-06-04] MEDS: SODIUM CHLORIDE 0.9% 500 ML 500 ML IV SCH ×2 (07:47→08:37)
[2019-06-04] MEDS: PIPERACILLIN-TAZOBACTAM 3.375 GM in SODIUM CHLORIDE 0.9% 100 ML IVPB SCH ×2 (07:51→09:49)
[2019-06-04 08:11] LABS: Anisocytosis Slight; Basophils # (A) 0.1 k/uL (0-0.2); Basophils % (A) 0 %; Eosinophils # (A) 0.1 k/uL (0-0.7); Eosinophils % (A) 1 %; HCT 39.1 % (39.0-53.0); HGB 11.2 gm/dL (13.0-17.5); Hypochromasia Marked; Lymphocytes # (A) 0.8 k/uL (1.0-4.8); Lymphocytes % (A) 5 %; MCH 27.1 pg (25.0-35.0); MCHC 28.7 g/dL (31.0-37.0); MCV 94.6 fL (80.0-100.0); Mean Platelet Volume 7.4; Monocytes # (A) 0.7 k/uL (0-1.0); Monocytes % (A) 4 %; Neutrophils # (A) 15.2 k/uL (1.3-7.7); Neutrophils % (A) 89 %; Platelet Count 287 k/uL (150-450); RBC 4.14 m/uL (4.30-5.90); RDW 16.7 % (11.5-15.5)
[2019-06-04] MEDS ORDERED: HYDROmorphone 0.5 MG/0.5 ML SYRINGE IVP STA (09:43)
[2019-06-04] MEDS ORDERED: HYDROmorphone 0.5 MG/0.5 ML SYRINGE IVP PRN ×2 (10:02→13:33)
[2019-06-04] MEDS ORDERED: traMADol 50 MG TAB PO SCH (10:15)
--- NOTE | 2019-06-04 10:38 | P.CONS ---
History of Present Illness - Reason for Consult Consult date: 06/04/19 - Chief Complaint Pain left ankle - History of Present Illness 63-year-old male who has a known history of severe peripheral vascular disease with history of prior angioplasty and stenting to the left lower extremity, was having difficulties holding for the last couple of days per his . Appa rently of the sudden onset of ulceration to the ankle and the patient has been moaning and crying in pain for the last couple of days and because started having increasing amounts of drainage he finally agreed to come to hospital. With evidence of this acute ulceration, cellulitis pain and swelling to the area he was brought into the hospital in consultation was requested as well as vascular surgery consult. The patient is miserable is having some minimal response to Dilaudid at this time. He is not having high-grade fevers chills or rigors. He has not been eating well for the last few days because of the severe pain. He is denying nausea or emesis, he has chronic shortness of breath due to his chronic tobacco use. He had stopped smoking but is actively smoking now. He has chronic cough that has not changed. He denies significant hemoptysis. Review of Systems Patient is miserable moaning in pain HEENT:Denies headache or acute visual change. Denies sinus or mouth discomforts. Denies neck stiffness or pain. Denies significant oral cavity pain. Denies difficulty on swallowing. Lungs: Chronic shortness of breath minimal cough no hemoptysis Cardiovascular: Denies chest pain, chest wall pain, orthopnea, or syncope but has chronic dyspnea with exertion not worsened Gastrointestinal:Denies nausea, vomiting, diarrhea, constipation, hematemesis, melena, hematochezia. No no significant change of bowel habit noticed. Musculoskeletal: As noted new ulceration to the left leg severely painful Skin: As per HPI panful ulceration sudden onset known history of peripheral vascular disease Neuro: Denies headache or visual change. Denies any new onset weakness or difficulty with ambulation. Denies falls or seizures. Psychiatric: Chronic anxiety chronic tobacco use despite advanced COPD Endocrine: Chronic fatigue losing weight Past Medical History Past Medical History: Coronary Artery Disease (CAD), COPD, Deep Vein Thrombosis (DVT), GERD/Reflux, Hypertension, Osteoarthritis (OA), Rheumatoid Arthritis (RA), Skin Disorder Additional Past Medical History / Comment(s): Multiple dislocations of left total hip, psoriasis, gout, hx of DVT both legs. Back and Hip pain. Current open left ankle wound. History of Any Multi-Drug Resistant Organisms: MRSA Year Discovered:: 06/09/17 MDRO Source:: Left Ankle Past Surgical History: Back Surgery, Heart Catheterization With Stent, Joint Replacement, Orthopedic Surgery Additional Past Surgical History / Comment(s): 09/28/17 arthrectomy, balloon angioplasty with stent left SFA, Cardiac catheterization with 4 stents placed - 2012, stents placed in bilateral legs & thinks stents in abd aorta, Back surgery - fusion and anuel in back. Left Hip replacement, cataract eye sx. Left ankle has screws. LAPARASCOPIC SHANTANU FUNDOPLASTY. 10/06/2018 LSFA STENT AND ARTHRECTOMY. Past Anesthesia/Blood Transfusion Reactions: Previous Problems w/ Anesthesia Additional Past Anesthesia/Blood Transfusion Reaction / Comm: "HAS CONFUSION AND DISORIENTATION POST ANESTHESIA " on occasion. 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 No . No travel as of late. no animals in the home. Active tobacco use no current alcohol use Smoking Status: Current every day smoker Past Alcohol Use History: None Reported Past Drug Use History: None Reported - Past Family History Mother Family Medical History: No Reported History Additional Family Medical History / Comment(s): Father History Unknown: Yes Family Medical History: Unable to Obtain Medications and Allergies Home Medications and Allergies Comment(s): Current Medications Acetaminophen (Tylenol Tab) 650 mg PO Q6HR PRN PRN Reason: Mild Pain or Fever > 100.5 Hydrocodone Bitart/Acetaminophen ([place] 5-325) 1 each PO Q6HR PRN PRN Reason: Pain Albuterol Sulfate (Ventolin Hfa Inhaler) 2 puff INHALATION RT-Q6H [facility] Albuterol/Ipratropium (Duoneb 0.5 Mg-3 Mg/3 Ml Soln) 3 ml INHALATION RT-QID [facility] Allopurinol (Zyloprim) 300 mg PO DAILY [facility] Atorvastatin Calcium (Lipitor) 40 mg PO HS [facility] Budesonide/Formoterol Fumarate (Symbicort 160-4.5 Mcg Inhaler) 2 puff INHALATION RT-BID [facility] Citalopram Hydrobromide (Celexa) 20 mg PO QAM [facility] Clopidogrel Bisulfate (Plavix) 75 mg PO QAM [facility] Donepezil HCl (Aricept) 5 mg PO DAILY [facility] Famotidine (Pepcid) 20 mg PO QAM [facility] Gabapentin (Neurontin) 300 mg PO TID [facility] Heparin Sodium (Porcine) (Heparin) 5,000 unit SQ Q12HR [facility] Hydromorphone HCl (Dilaudid) 0.5 mg IVP Q3HR PRN PRN Reason: Severe Pain Hydroxyzine HCl (Atarax) 25 mg PO HS [facility] Ceftazidime 2 gm/ Sodium (Chloride) 100 mls @ 100 mls/hr IVPB Q8HR [facility] Ibuprofen (Motrin) 400 mg PO Q6HR PRN PRN Reason: Mild Pain or Fever > 100.5 Lisinopril (Zestril) 10 mg PO QAM [facility] Miscellaneous Information (Pharmacy To Dose Iv Vancomycin) 1 each MISCELLANE DIRECTED PRN PRN Reason: Per Protocol Naloxone HCl (Narcan) 0.2 mg IV Q2M PRN PRN Reason: Opioid Reversal Nicotine (Habitrol 21mg/24hr Patch) 1 patch TRANSDERM DAILY [facility] Non-Formulary Medication (Aspirin [Adult Low Dose Aspirin Ec]) 81 mg PO DAILY [facility] Non-Formulary Medication (Cetirizine Hcl [Zyrtec]) 10 mg PO DAILY [facility] Non-Formulary Medication (Flaxseed Oil 1200mg) 1,200 mg PO DAILY [facility] Ondansetron HCl (Zofran) 4 mg IVP Q8HR PRN PRN Reason: Nausea And Vomiting Tramadol HCl (Ultram) 50 mg PO Q12H [facility] Home Medications Medication Instructions Recorded Confirmed Type Citalopram Hydrobromide 20 mg PO QAM 04/05/14 06/04/19 History [Citalopram HBr] Lisinopril [Zestril] 10 mg PO QAM 09/14/14 06/04/19 History Aspirin [Adult Low Dose Aspirin EC] 81 mg PO DAILY 09/17/17 06/04/19 History Allopurinol [Zyloprim] 300 mg PO DAILY 09/18/17 06/04/19 History Clopidogrel [Plavix] 75 mg PO QAM 09/18/17 06/04/19 History hydrOXYzine HCL 25 mg PO HS 09/18/17 06/04/19 History Famotidine [Pepcid] 20 mg PO QAM 07/12/18 06/04/19 History Cetirizine HCl [Zyrtec] 10 mg PO DAILY 09/29/18 06/04/19 History traMADol HCL [Ultram] 50 mg PO Q12H 09/29/18 06/04/19 History Donepezil HCl [Aricept] 5 mg PO DAILY 10/06/18 06/04/19 History Adalimumab [Humira Pen 40 mg SQ TH 05/17/19 06/04/19 History Crohn's-Uc-Hs] Flaxseed Oil 1200mg 1,200 mg PO DAILY 05/17/19 06/04/19 History Gabapentin [Neurontin] 300 mg PO TID 05/17/19 06/04/19 History Albuterol Sulfate [Proair Hfa] 2 puff INHALATION RT-Q6H #1 inhaler 05/19/19 06/04/19 Rx Budesonide-Formot 160-4.5 Mcg 2 puff INHALATION RT-BID #1 inh 05/19/19 06/04/19 Rx [Symbicort 160-4.5 Mcg Inhaler] Atorvastatin [Lipitor] 40 mg PO HS #30 tab 05/20/19 06/04/19 Rx Ipratropium-Albuterol Nebulize 3 ml INHALATION RT-QID 06/04/19 06/04/19 History [Duoneb 0.5 mg-3 mg/3 ml Soln] Allergies Allergy/AdvReac Type Severity Reaction Status Date / Time No Known Allergies Allergy Verified 06/04/19 07:12 Physical Exam Vitals: Vital Signs Temp Pulse Pulse Resp BP BP Pulse Ox 06/04/19 09:43 98.6 F 93 22 126/63 96 06/04/19 08:40 98.8 F 78 15 119/62 96 06/04/19 08:19 91 06/04/19 08:05 87 06/04/19 07:58 98.8 F 90 16 135/75 96 06/04/19 05:01 98.5 F 104 H 24 158/70 100 Intake and Output 06/03/19 06/04/19 06/04/19 22:59 06:59 14:59 Other: Weight 57.606 kg 57.606 kg 63-year-old male quite uncomfortable moaning in pain HEENT: Anicteric conjunctiva are pink and moist nasal mucosa grossly intact without significant lesions, there is no thrush. Neck: The neck is supple without significant lymphadenopathy or thyromegaly. Lungs: Symmetrical air entry is noted there is expiratory wheezing lung castro but no jayson bronchial sounds all dullness or egophony Heart: Regular rate and rhythm with an audible S1-S2, no S3 soft S4. There is no significant murmur click or rub, PMI was nondisplaced. Abdomen: Positive bowel sounds soft and nontender without palpable masses or organomegaly. There was no guarding or rebound. Extremities:The upper extremities have no acute lesions. Right lower extremity shows no acute lesions. Left lower extremity has evidence of swelling distinct erythematous present for the foot to the mid aspect of the calf. There is evidence of the acute ulceration that is draining a serous material. It is extremely tender to touch and manipulation. Although the lateral malleolus surface has no tenderness, any motion of the area causes him to have severe pain. Neuro: Awake alert oriented to person place and time. There are no acute new gross focal sensory motor deficits. Moaning in pain Results CBC & Chem 7: 06/04/19 07:10 Labs: Abnormal Lab Results - Last 24 Hours (Table) 06/04/19 Range/Units 07:10 WBC 17.0 H (3.8-10.6) k/uL RBC 4.14 L (4.30-5.90) m/uL Hgb 11.2 L (13.0-17.5) gm/dL MCHC 28.7 L (31.0-37.0) g/dL RDW 16.7 H (11.5-15.5) % Neutrophils # 15.2 H (1.3-7.7) k/uL Lymphocytes # 0.8 L (1.0-4.8) k/uL Laboratory Results WBC 17.0 k/uL (3.8-10.6) H 06/04/19 07:10 RBC 4.14 m/uL (4.30-5.90) L 06/04/19 07:10 Hgb 11.2 gm/dL (13.0-17.5) L 06/04/19 07:10 Hct 39.1 % (39.0-53.0) 06/04/19 07:10 MCV 94.6 fL (80.0-100.0) 06/04/19 07:10 MCH 27.1 pg (25.0-35.0) 06/04/19 07:10 MCHC 28.7 g/dL (31.0-37.0) L 06/04/19 07:10 RDW 16.7 % (11.5-15.5) H 06/04/19 07:10 Plt Count 287 k/uL (150-450) 06/04/19 07:10 Neutrophils % 89 % 06/04/19 07:10 Lymphocytes % 5 % 06/04/19 07:10 Monocytes % 4 % 06/04/19 07:10 Eosinophils % 1 % 06/04/19 07:10 Basophils % 0 % 06/04/19 07:10 Neutrophils # 15.2 k/uL (1.3-7.7) H 06/04/19 07:10 Lymphocytes # 0.8 k/uL (1.0-4.8) L 06/04/19 07:10 Monocytes # 0.7 k/uL (0-1.0) 06/04/19 07:10 Eosinophils # 0.1 k/uL (0-0.7) 06/04/19 07:10 Basophils # 0.1 k/uL (0-0.2) 06/04/19 07:10 Hypochromasia Marked 06/04/19 07:10 Anisocytosis Slight 06/04/19 07:10 Assessment and Plan (1) Lower extremity edema Current Visit: Yes Status: Acute Code(s): R60.0 - LOCALIZED EDEMA SNOMED Code(s): 305276344 (2) Atherosclerosis of [place] arteries of left leg with ulceration of ankle Narrative/Plan: 63-year-old male that has a known history of COPD, psoriasis and severe peripheral vascular disease. He's had a history of angioplasty and stenting to left lower extremity a few years ago by Dr. Dee. Now presenting with an acute painful situation to the left leg with onset of ulceration. There is concern that this is an acute arterial ulceration resulting in the secondary infection at the site. Does have a known history of MRSA and constantly vancomycin therapy is appropriate, we'll transition Zosyn to ceftazidime to limit renal toxicity and to offer coverage for aerobic gram- negative bacteria including Pseudomonas until we have further cultures that are available. Pain control is being addressed by the primary attempted to offer dose of Toradol however with his other medications is not an option. He is up-to-date with his tetanus vaccine. Wound care will be daily with a calcium alginate dressing is well moistened which should give some relief to the area of pain. His Humira needs to be held because he has an active infection. The. There were bedbugs and is closing at admission he has been showered in the clothing is been removed and no further interventions are required. Bedbugs carry no specific diseases. Current Visit: Yes Status: Acute Code(s): I70.243 - ATHSCL [place] ARTERIES OF LEFT LEG W ULCERATION OF ANKLE SNOMED Code(s): 175095713768963
[2019-06-04 10:48] LABS: INR 0.9 (<1.2); Partial Thromboplastin Time 23.1 sec (22.0-30.0); Prothrombin Time 9.9 sec (9.0-12.0)
[2019-06-04 10:53] LABS: ALT 27 U/L (21-72); AST 22 U/L (17-59); African American GFR (CKD) >90 (>60 ml/min/1.73 sqM); Albumin 3.1 g/dL (3.5-5.0); Alkaline Phosphatase 79 U/L (38-126); Anion Gap 8 mmol/L; Blood Urea Nitrogen 16 mg/dL (9-20); Carbon Dioxide 20 mmol/L (22-30); Chloride 112 mmol/L (98-107); Creatine Kinase 52 U/L (55-170); Glucose 104 mg/dL (74-99); Potassium 4.7 mmol/L (3.5-5.1); Sodium 140 mmol/L (137-145); Total Bilirubin 0.5 mg/dL (0.2-1.3)
[2019-06-04] MEDS: HYDROcodone/APAP 5-325MG 1 EACH TAB PO PRN ×2 (10:59→19:32)
[2019-06-04] MEDS: GABAPENTIN 300 MG CAP PO SCH ×3 (10:59→20:17)
[2019-06-04] MEDS: LORazepam 0.5 MG TAB PO PRN (11:00)
[2019-06-04] MEDS: IPRATROPIUM-ALBUTEROL 3 ML NEB INHALATION SCH ×3 (11:13→19:24)
--- NOTE | 2019-06-04 11:53 | P.CRDCN ---
History of Present Illness History of present illness: This is a pleasant 63-year-old male past medical history significant for coronary artery disease status post stent placement to the proximal circumflex in 2012, severe peripheral vascular disease status post multiple interventions, hypertension, gastroesophageal reflux disease, chronic systolic heart failure and chronic nicotine dependence. He follows in the office with Dr. Howell. He presented to the hospital secondary to lower extremity wound we have been consulted secondary to peripheral vascular disease. He is seen and examined sitting up in bed in significant pain to the left foot wound. He denies symptoms of chest pain, shortness of breath, dizziness or palpitations. He is scheduled to undergo outpatient cardiac catheterization secondary to a change in his ejection fraction noted on recent echocardiogram. Currently maintained on aspirin 81 mg daily, atorvastatin 40 mg daily, Plavix 75 mg daily, lisinopril 10 mg daily. September 2018 he underwent atherectomy, stent placement and balloon angioplasty of the left SFA. Currently maintained on dual antiplatelet therapy. Echocardiogram obtained earlier this month reveals impaired LV systolic function with ejection fraction 20-25%. EKG reveals sinus mechanism heart rate of 92, right bundle branch block pattern LVH. Laboratory data reviewed, WBC 17, hemoglobin 11.2, platelets 287, sodium 140, potassium 4.7, creatinine 0.74. At the time of my exam: CONSTITUTIONAL: Denies fever. Denies chills. EYES: Denies blurred vision. Denies vision changes. Denies eye pain. EARS, NOSE, MOUTH & THROAT: Denies headache. Denies sore throat. Denies ear pain. CARDIOVASCULAR: Denies chest pain. Denies shortness of breath. Denies orthopnea. Denies PND. Denies palpitations. RESPIRATORY: Denies cough. GASTROINTESTINAL: Denies abdominal pain. Denies diarrhea. Denies constipation. Denies nausea. Denies vomiting. MUSCULOSKELETAL: Complains of significant discomfort to the left foot. INTEGUMENTARY: Denies pruitis. Denies rash. NEUROLOGIC: Denies numbness. Denies tingling. Denies weakness. PSYCHIATRIC: Denies anxiety. Denies depression. ENDOCRINE: Denies fatigue. Denies weight change. Denies polydipsia. Denies adriana yurina. GENITOURINARY: Denies burning, hematuria or urgency with micturation. HEMATOLOGIC: Denies history of anemia. Denies bleeding. Blood pressure 119/62 heart rate 78 afebrile maintaining oxygen saturation on room air. GENERAL: This is a 63-year-old male in no apparent distress at the time of my examination. HEENT: Head is atraumatic, normocephalic. Pupils are equal, round. Sclerae anicteric. Conjunctivae are clear. Mucous membranes of the mouth are moist. Neck is supple. There is no jugular venous distention. No carotid bruit is heard. LUNGS: Scattered rhonchi, no wheezes or rales. Diminished bilaterally. No chest wall tenderness is noted on palpation or with deep breathing. HEART: Regular rate and rhythm without murmurs, rubs or gallops. S1 and S2 heard. ABDOMEN: Soft, nontender. Bowel sounds are heard. No organomegaly noted. EXTREMITIES: Left lower extremity ulceration draining serous fluid, significant edema, nonpitting. Right lower extremity no evidence of edema or ulceration. NEUROLOGIC: Patient is awake, alert and oriented x3. ASSESSMENT Left lower extremity ulceration History of severe peripheral vascular disease status post multiple interventions Coronary artery disease status post stent placement to the circumflex 2012 Hypertension Chronic systolic heart failure, currently euvolemic Chronic nicotine dependence PLAN Clinically he is euvolemic and stable from a cardiac perspective. No symptoms suggestive of unstable angina. Ongoing management per vascular surgery and infectious disease. Initiate Lopressor 25 mg twice a day. Continue aspirin, Plavix, atorvastatin and lisinopril as previously ordered. Upcoming cardiac catheterization will temporarily be placed on hold pending clinical course. Thank you kindly for this consultation. Nurse Practitioner note has been reviewed, I agree with a documented findings and plan of care. Patient was seen and examined. Past Medical History Past Medical History: Coronary Artery Disease (CAD), COPD, Deep Vein Thrombosis (DVT), GERD/Reflux, Hypertension, Osteoarthritis (OA), Rheumatoid Arthritis (RA), Skin Disorder Additional Past Medical History / Comment(s): Multiple dislocations of left total hip, psoriasis, gout, hx of DVT both legs. Back and Hip pain. Current open left ankle wound. History of Any Multi-Drug Resistant Organisms: MRSA Date of last positivie culture/infection: 06/09/17 MDRO Source:: Left Ankle Past Surgical History: Back Surgery, Heart Catheterization With Stent, Joint Replacement, Orthopedic Surgery Additional Past Surgical History / Comment(s): 09/28/17 arthrectomy, balloon angioplasty with stent left SFA, Cardiac catheterization with 4 stents placed - 2012, stents placed in bilateral legs & thinks stents in abd aorta, Back surgery - fusion and anuel in back. Left Hip replacement, cataract eye sx. Left ankle has screws. LAPARASCOPIC SHANTANU FUNDOPLASTY. 10/06/2018 LSFA STENT AND ARTHRECTOMY. Past Anesthesia/Blood Transfusion Reactions: Previous Problems w/ Anesthesia Additional Past Anesthesia/Blood Transfusion Reaction / Comment(s): "HAS CONFUSION AND DISORIENTATION POST ANESTHESIA " on occasion. 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 No . No travel as of late. no animals in the home. Active tobacco use no current alcohol use Smoking Status: Current every day smoker Past Alcohol Use History: None Reported Past Drug Use History: None Reported - Past Family History Mother Family Medical History: No Reported History Additional Family Medical History / Comment(s): Father History Unknown: Yes Family Medical History: Unable to Obtain Medications and Allergies Home Medications Medication Instructions Recorded Confirmed Type Citalopram Hydrobromide 20 mg PO QAM 04/05/14 06/04/19 History [Citalopram HBr] Lisinopril [Zestril] 10 mg PO QAM 09/14/14 06/04/19 History Aspirin [Adult Low Dose Aspirin EC] 81 mg PO DAILY 09/17/17 06/04/19 History Allopurinol [Zyloprim] 300 mg PO DAILY 09/18/17 06/04/19 History Clopidogrel [Plavix] 75 mg PO QAM 09/18/17 06/04/19 History hydrOXYzine HCL 25 mg PO HS 09/18/17 06/04/19 History Famotidine [Pepcid] 20 mg PO QAM 07/12/18 06/04/19 History Cetirizine HCl [Zyrtec] 10 mg PO DAILY 09/29/18 06/04/19 History traMADol HCL [Ultram] 50 mg PO Q12H 09/29/18 06/04/19 History Donepezil HCl [Aricept] 5 mg PO DAILY 10/06/18 06/04/19 History Adalimumab [Humira Pen 40 mg SQ TH 05/17/19 06/04/19 History Crohn's-Uc-Hs] Flaxseed Oil 1200mg 1,200 mg PO DAILY 05/17/19 06/04/19 History Gabapentin [Neurontin] 300 mg PO TID 05/17/19 06/04/19 History Albuterol Sulfate [Proair Hfa] 2 puff INHALATION RT-Q6H #1 inhaler 05/19/19 06/04/19 Rx Budesonide-Formot 160-4.5 Mcg 2 puff INHALATION RT-BID #1 inh 05/19/19 06/04/19 Rx [Symbicort 160-4.5 Mcg Inhaler] Atorvastatin [Lipitor] 40 mg PO HS #30 tab 05/20/19 06/04/19 Rx Ipratropium-Albuterol Nebulize 3 ml INHALATION RT-QID 06/04/19 06/04/19 History [Duoneb 0.5 mg-3 mg/3 ml Soln] Allergies Allergy/AdvReac Type Severity Reaction Status Date / Time No Known Allergies Allergy Verified 06/04/19 07:12 Physical Exam Vitals: Vital Signs Temp Pulse Pulse Resp BP BP Pulse Ox 06/04/19 09:43 98.6 F 93 22 126/63 96 06/04/19 08:40 98.8 F 78 15 119/62 96 06/04/19 08:19 91 06/04/19 08:05 87 06/04/19 07:58 98.8 F 90 16 135/75 96 06/04/19 05:01 98.5 F 104 H 24 158/70 100 Intake and Output 06/03/19 06/04/19 06/04/19 22:59 06:59 14:59 Other: Weight 57.606 kg 57.606 kg Results 06/04/19 07:10 06/04/19 08:40 Cardiac Enzymes 06/04/19 Range/Units 08:40 AST 22 (17-59) U/L Coagulation 06/04/19 Range/Units 08:40 PT 9.9 (9.0-12.0) sec APTT 23.1 (22.0-30.0) sec CBC 06/04/19 Range/Units 07:10 WBC 17.0 H (3.8-10.6) k/uL RBC 4.14 L (4.30-5.90) m/uL Hgb 11.2 L (13.0-17.5) gm/dL Hct 39.1 (39.0-53.0) % Plt Count 287 (150-450) k/uL Comprehensive Metabolic Panel 06/04/19 Range/Units 08:40 Sodium 140 (137-145) mmol/L Potassium 4.7 (3.5-5.1) mmol/L Chloride 112 H (98-107) mmol/L Carbon Dioxide 20 L (22-30) mmol/L BUN 16 (9-20) mg/dL Creatinine 0.74 (0.66-1.25) mg/dL Glucose 104 H (74-99) mg/dL Calcium 8.0 L (8.4-10.2) mg/dL AST 22 (17-59) U/L ALT 27 (21-72) U/L Alkaline Phosphatase 79 (38-126) U/L Total Protein 6.0 L (6.3-8.2) g/dL Albumin 3.1 L (3.5-5.0) g/dL Current Medications Generic Name Dose Route Start Last Admin Trade Name Freq PRN Reason Stop Dose Admin Acetaminophen 650 mg 06/04/19 05:34 Tylenol Tab PO Q6HR PRN Mild Pain or Fever > 100.5 Hydrocodone Bitart/Acetaminophen 1 each 06/04/19 10:02 06/04/19 10:59 Sharon 5-325 PO 1 each Q6HR PRN Administration MODERATE Pain Albuterol Sulfate 2.5 mg 06/04/19 12:00 Ventolin Nebulized INHALATION RT-Q4H PRN Shortness Of Breath Albuterol/Ipratropium 3 ml 06/04/19 12:00 06/04/19 11:13 Duoneb 0.5 Mg-3 Mg/3 Ml Soln INHALATION Not Given RT-QID JACINTO Allopurinol 300 mg 06/04/19 10:15 Zyloprim PO DAILY [facility] Aspirin 81 mg 06/05/19 09:00 Aspirin PO DAILY [facility] Atorvastatin Calcium 40 mg 06/04/19 21:00 Lipitor PO HS [facility] Budesonide/Formoterol Fumarate 2 puff 06/04/19 20:00 Symbicort 160-4.5 Mcg Inhaler INHALATION RT-BID [facility] Citalopram Hydrobromide 20 mg 06/04/19 10:15 Celexa PO QAM [facility] Clopidogrel Bisulfate 75 mg 06/04/19 10:15 Plavix PO QAM [facility] Donepezil HCl 5 mg 06/04/19 10:15 Aricept PO DAILY [facility] Famotidine 20 mg 06/05/19 09:00 Pepcid PO QAM [facility] Gabapentin 300 mg 06/04/19 10:15 06/04/19 10:59 Neurontin PO 300 mg TID [facility] Administration Heparin Sodium (Porcine) 5,000 unit 06/04/19 21:00 Heparin SQ Q12HR [facility] Hydromorphone HCl 0.5 mg 06/04/19 10:02 Dilaudid IVP Q3HR PRN Severe Pain Hydroxyzine HCl 25 mg 06/04/19 21:00 Atarax PO HS [facility] Ceftazidime 2 gm/ Sodium 100 mls @ 100 mls/hr 06/04/19 16:00 Chloride IVPB Q8HR [facility] Vancomycin HCl 1,000 mg/ 250 mls @ 125 mls/hr 06/04/19 19:00 Sodium Chloride IVPB Q8H [facility] Ibuprofen 400 mg 06/04/19 05:34 Motrin PO Q6HR PRN Mild Pain or Fever > 100.5 Lisinopril 10 mg 06/05/19 09:00 Zestril PO QAM [facility] Loratadine 10 mg 06/05/19 09:00 Claritin PO DAILY [facility] Lorazepam 0.5 mg 06/04/19 10:45 06/04/19 11:00 Ativan PO 0.5 mg Q6HR PRN Administration MODERATE Anxiety Naloxone HCl 0.2 mg 06/04/19 05:34 Narcan IV Q2M PRN Opioid Reversal Nicotine 1 patch 06/04/19 10:00 Habitrol 21mg/24hr Patch TRANSDERM DAILY [facility] Ondansetron HCl 4 mg 06/04/19 05:34 Zofran IVP Q8HR PRN Nausea And Vomiting Tramadol HCl 50 mg 06/04/19 10:15 06/04/19 10:58 Ultram PO 50 mg Q12HR [facility] Administration Intake and Output 06/03/19 06/04/19 06/04/19 22:59 06:59 14:59 Other: Weight 57.606 kg 57.606 kg Patient Weight 06/05/19 06:59 Weight 57.606 kg 06/04/19 07:10 06/04/19 08:40
[2019-06-04] MEDS ORDERED: ALBUTEROL NEBULIZED 2.5 MG/3 ML INHALATION PRN (12:00)
[2019-06-04] MEDS: DONEPEZIL 5 MG TAB PO SCH (12:13)
[2019-06-04] MEDS: ALLOPURINOL 300 MG TAB PO SCH (12:17)
[2019-06-04] MEDS: CITALOPRAM HYDROBROMIDE 20 MG TAB PO SCH (12:17)
[2019-06-04] MEDS: CLOPIDOGREL 75 MG TAB PO SCH (12:17)
[2019-06-04] MEDS: NICOTINE 21MG/24HR PATCH TRANSDERM SCH (12:17)
[2019-06-04 13:39] LABS: Appearance,Urine Clear (Clear); Bilirubin,Urine Negative (Negative); Blood,Urine Negative (Negative); Color,Urine Yellow; Glucose,Urine (UA) Negative (Negative); Ketones,Urine Negative (Negative); Leukocyte Esterase,Urine Negative (Negative); Mucus,Urine Rare /hpf; Nitrite,Urine Negative (Negative); PH, Urine 6.5 (5.0-8.0); Protein,Urine 2+ (Negative); RBC,Urine 1 /hpf (0-5); Specific Gravity,Urine 1.026 (1.001-1.035); Squamous Epithelial Cell,Urine <1 /hpf (0-4); Urobilinogen,Urine <2.0 mg/dL (<2.0)
--- NOTE | 2019-06-04 14:00 | XR ---
EXAMINATION TYPE: XR chest 1V portable DATE OF EXAM: 06/04/2019 COMPARISON: 05/17/2019 INDICATION: COPD TECHNIQUE: Single frontal view of the chest is obtained. FINDINGS: The heart size is prominent. The pulmonary vasculature is normal. The lungs are clear. There is some elevation of the lateral left diaphragm may be related atelectasis. IMPRESSION: 1. Lateral left basilar atelectasis is not excluded. 2. Mild stable cardiomegaly
[2019-06-04] MEDS: COLCHICINE 0.6 MG EACH PO SCH ×2 (14:30→20:17)
[2019-06-04] MEDS: HYDROmorphone 1 MG/ML 1 ML SYRINGE IVP PRN ×3 (14:31→20:25)
[2019-06-04 14:49] LABS: Uric Acid 4.8 mg/dL (3.5-8.5)
[2019-06-04 15:22] LABS: C Reactive Protein 311.8 mg/L (<10.0)
--- NOTE | 2019-06-04 15:33 | NM ---
EXAMINATION TYPE: NM bone 3 phase DATE OF EXAM: 06/04/2019 COMPARISON: NONE HISTORY: Pain. Osteomyelitis. Triple phase bone scintigraphy was performed following the injection of 20.8 mCi Tc 99m MDP. Immedia te images and 3.5 hours post injection images acquired. FINDINGS: There is hyperemia of the left ankle on the flow study. The delayed images show increased uptake foca lly in the distal tibia and in the talus. IMPRESSION: Hyperemia. Delayed increased uptake on both sides of the ankle joint. This is nonspecific and could r elate to significant arthritic disease. The left foot x-ray today shows no focal bone destruction. I think osteomyelitis is less likely.
--- NOTE | 2019-06-04 15:58 | HP ---
HISTORY AND PHYSICAL DATE OF SERVICE: 06/04/2019 I am covering for Dr. Woodson. CHIEF COMPLAINT: Left ankle pain infection. HISTORY OF PRESENT ILLNESS: This 63-year-old gentleman with a past medical history of multiple medical problems including history of CAD, history of DVT, history of GERD, history of DJD, history of rheumatoid arthritis, history of MRSA, history of CAD, stent, history of peripheral vascular disease, history of psoriasis, being followed Dr. David Woodson in the outpatient setting is complaining of left ankle pain and significant infection for the last couple days. The redness increased dramatically over the past 24 hours according to the patient, extremely painful. The patient has some purulent and bloody discharge. The patient came to [facility] and admitted for further evaluation and treatment. The white count was found to be 17 and the patient has also been evaluated by Cardiology and as well as Infectious Disease. Broad-spectrum IV antibiotics has been initiated in the form of ceftazidime and cultures have been obtained. There is no history of fever, rigors or chills. No history of headache, loss of consciousness or seizures at this time. PAST MEDICAL HISTORY: History of CAD, history of COPD, DVT, GERD, hypertension, DJD, rheumatoid arthritis, history of psoriasis, history of peripheral vascular disease and with angioplasty by Dr. Howell. MEDICATION: Home medications are: 1. Ultram 50 mg p.o. b.i.d. 2. Hydroxyzine 25 mg q.h.s. 3. DuoNeb 0.3 mL q.i.d. 4. Neurontin 300 mg p.o. t.i.d. 5. Flaxseed 1200 mg p.o. daily. 6. Pepcid 20 mg q.a.m. 7. Aricept 5 mg p.o. daily. 8. Plavix 75 mg q.a.m. 9. Celexa 20 mg q.a.m. 10.Zyrtec 10 mg p.o. daily. 11.Symbicort 160/4.5 two puffs b.i.d. 12.Lipitor 40 mg q.h.s. 13.Aspirin 81 mg p.o. daily. 14.Zyloprim 300 mg p.o. daily. 15.ProAir 2 puffs q.6. 16.Humira 40 mg subcu . ALLERGIES: None. FAMILY HISTORY: No history of heart disease or strokes in the family. SOCIAL HISTORY: History of continued ongoing smoking. REVIEW OF SYSTEMS: ENT: No diminished hearing. No diminished vision. CARDIOVASCULAR: No angina or palpitations. Otherwise as mentioned earlier. Respiration: As mentioned earlier. GI no nausea or vomiting. no dysuria. Nervous System: As mentioned earlier. ALLERGIES/IMMUNOLOGY: No asthma, hay fever. MUSCULOSKELETAL as mentioned earlier. HEMATOLOGY/ONCOLOGY: No history of anemia. ENDOCRINE: No history of diabetes or hypothyroidism. CONSTITUTIONAL: As mentioned earlier. DERMATOLOGY mentioned earlier RHEUMATOLOGY as mentioned earlier. PSYCHIATRY as mentioned earlier. PHYSICAL EXAMINATION: Alert and oriented x3. Pulse is 78. Blood pressure 119/62, respiration 15, temperature 98.8, pulse ox 97% on room air. HEENT: Conjunctivae normal. Oral mucosa moist. NECK is no jugular venous distention. No carotid bruit. No lymph node enlargement. Cardiovascular: S1, S2 muffled. RESPIRATIONS: Breath sounds diminished in the bases. No rhonchi. No crackles. ABDOMEN: Soft, nontender. No mass palpable. LEGS: Significant pain and swelling and erythema of the left ankle present with some purulent mucopurulent discharge also. The pulses felt diminished. Otherwise nervous system: Higher functions as mentioned earlier. Moves all 4 limbs. No focal motor or sensory deficits. Lymphatics: No lymph nodes palpable in the neck, axilla or groin. JOINTS: Normal except left ankle. SKIN: As mentioned earlier. The leg and as well as diffuse erythema and scratch tineo and features of psoriasis. LAB: WBC 17, hemoglobin is 11.2 and sodium 140, potassium 4.7 and albumin is 3.1. ASSESSMENT: 1. Acute cellulitis of the left ankle with possible sepsis present on admission. 2. Severe pain. 3. Peripheral vascular disease. 4. Increased WBC. 5. Anemia, normocytic anemia of chronic disease. 6. History of coronary artery disease. 7. History of chronic obstructive pulmonary disease. 8. History of deep vein thrombosis. 9. Gastroesophageal reflux disease. 10.Hypertension. 11.History of degenerative joint disease. 12.History of rheumatoid arthritis. 13.History of multiple dislocations of the left total hip. 14.Psoriasis. 15.Gout. 16.History of deep vein thrombosis, both legs. 17.History of MRSA. 18.History of coronary artery disease/ stent. 19.History of angioplasty of the legs. 20.Continued ongoing nicotine dependence. 21.Protein calorie malnutrition, severe, with BMI 18.8. 22.FULL CODE. RECOMMENDATIONS AND DISCUSSION: This 63-year-old gentleman presented with multiple complex medical issues, we will monitor the patient closely. We will obtain cultures and start broad-spectrum antibiotics, ceftazidime has been recommended by Infectious Disease. We will continue to monitor. Cardiology has seen the patient. We will also provide significant pain relief because the patient is rating the pain as 10/10 at this time. I would also evaluate for any acute gout exacerbations and treat accordingly. Otherwise bronchodilators will be continued for treatment of chronic obstructive pulmonary disease. The rest of the medications continued. COPD and DVT prophylaxis. GI prophylaxis. Prognosis is extremely guarded because of multiple complex medical issues as described above and discussed with the patient's family. Further recommendations to follow. A copy of this dictating being forwarded to Dr. Woodson who is the primary physician. MMTONIOL / EDWARDN: [id number] /
[2019-06-04] MEDS: SYMBICORT 160-4.5 MCG INHALER INHALATION SCH (19:24)
[2019-06-04] MEDS: VANCOMYCIN 1,000 MG in SODIUM CHLORIDE 0.9% 250 ML IVPB SCH (19:31)
[2019-06-04] MEDS: METOPROLOL TARTRATE 25 MG TAB PO SCH (20:17)
[2019-06-04] MEDS: hydrOXYzine HCL 25 MG TAB PO SCH (20:17)
[2019-06-04] MEDS: HEPARIN SODIUM,PORCINE 5,000 UNIT/ML 1 ML VIAL SQ SCH (20:18)
[2019-06-04] MEDS: ATORVASTATIN 40 MG TAB PO SCH (20:18)
[2019-06-04] MEDS: IPRATROPIUM-ALBUTEROL 3 ML NEB INHALATION PRN (23:46)
[2019-06-05] MEDS: HYDROmorphone 1 MG/ML 1 ML SYRINGE IVP PRN ×5 (00:05→21:17)
[2019-06-05] MEDS: VANCOMYCIN 1,000 MG in SODIUM CHLORIDE 0.9% 250 ML IVPB SCH ×2 (02:36→11:40)
[2019-06-05] MEDS: HYDROcodone/APAP 5-325MG 1 EACH TAB PO PRN ×3 (02:36→22:56)
[2019-06-05] MEDS: IPRATROPIUM-ALBUTEROL 3 ML NEB INHALATION PRN (02:47)
[2019-06-05] MEDS: IPRATROPIUM-ALBUTEROL 3 ML NEB INHALATION SCH ×4 (07:16→20:04)
[2019-06-05] MEDS: SYMBICORT 160-4.5 MCG INHALER INHALATION SCH ×2 (07:18→20:04)
[2019-06-05 08:46] LABS: Anisocytosis Slight; Basophils % (A) 0 %; Eosinophils # (A) 0.1 k/uL (0-0.7); Eosinophils % (A) 1 %; HCT 29.4 % (39.0-53.0); Hypochromasia Moderate; Lymphocytes # (A) 0.6 k/uL (1.0-4.8); Lymphocytes % (A) 5 %; MCH 29.6 pg (25.0-35.0); MCHC 31.2 g/dL (31.0-37.0); MCV 95.1 fL (80.0-100.0); Mean Platelet Volume 7.4; Monocytes # (A) 0.5 k/uL (0-1.0); Monocytes % (A) 4 %; Neutrophils # (A) 10.4 k/uL (1.3-7.7); Neutrophils % (A) 88 %; Platelet Count 222 k/uL (150-450); RBC 3.09 m/uL (4.30-5.90); RDW 17.3 % (11.5-15.5); WBC 11.7 k/uL (3.8-10.6)
[2019-06-05 08:51] LABS: HGB 9.2 gm/dL (13.0-17.5)
[2019-06-05] MEDS ORDERED: FLAXSEED OIL 1200 MG PO SCH (09:00)
[2019-06-05 09:01] LABS: African American GFR (CKD) >90 (>60 ml/min/1.73 sqM); Anion Gap 8 mmol/L; Blood Urea Nitrogen 20 mg/dL (9-20); Calcium 8.1 mg/dL (8.4-10.2); Carbon Dioxide 22 mmol/L (22-30); Chloride 107 mmol/L (98-107); Glucose 119 mg/dL (74-99); Potassium 4.9 mmol/L (3.5-5.1); Sodium 137 mmol/L (137-145)
[2019-06-05] MEDS: HEPARIN SODIUM,PORCINE 5,000 UNIT/ML 1 ML VIAL SQ SCH ×2 (10:08→20:09)
[2019-06-05] MEDS: CLOPIDOGREL 75 MG TAB PO SCH (10:09)
[2019-06-05] MEDS: ASPIRIN 81 MG PO SCH (10:09)
[2019-06-05] MEDS: CITALOPRAM HYDROBROMIDE 20 MG TAB PO SCH (10:09)
[2019-06-05] MEDS: FAMOTIDINE 20 MG TAB PO SCH (10:09)
[2019-06-05] MEDS: NICOTINE 21MG/24HR PATCH TRANSDERM SCH (10:09)
[2019-06-05] MEDS: LISINOPRIL 10 MG TAB PO SCH (10:09)
[2019-06-05] MEDS: METOPROLOL TARTRATE 25 MG TAB PO SCH ×2 (10:09→20:09)
[2019-06-05] MEDS: GABAPENTIN 300 MG CAP PO SCH ×3 (10:09→20:10)
[2019-06-05] MEDS: LORATADINE 10 MG TAB PO SCH (10:09)
[2019-06-05] MEDS: ALLOPURINOL 300 MG TAB PO SCH (10:09)
[2019-06-05] MEDS: COLCHICINE 0.6 MG EACH PO SCH (10:29)
[2019-06-05] MEDS: DONEPEZIL 5 MG TAB PO SCH (10:29)
[2019-06-05] MEDS: KETOROLAC 30 MG/ML 1 ML VIAL IVP PRN (15:24)
[2019-06-05] MEDS ORDERED: diphenhydrAMINE 50 MG/ML 1 ML VIAL IVP PRN (15:33)
--- NOTE | 2019-06-05 17:30 | PN ---
PROGRESS NOTE DATE OF SERVICE: 06/05/2019 I am covering for Dr. Woodson. HISTORY OF PRESENT ILLNESS: This 63-year-old gentleman with a past medical history of multiple medical problems was admitted with significant cellulitis of the left ankle. The patient also complaining of severe ankle pain. Patient also had acute gouty episodes attack also. The patient being closely monitored at this time. There is no history of fever, rigors or chills. PAST MEDICAL HISTORY: Reviewed. REVIEW OF SYSTEMS: CARDIOVASCULAR SYSTEM: No angina or palpitations. RESPIRATION: As mentioned earlier. GI: As mentioned earlier. GENITOURINARY: As mentioned earlier. CENTRAL NERVOUS SYSTEM: No numbness or weakness. CURRENT MEDICATIONS: Reviewed and include: 1. Tylenol 650 q.6h p.r.n. 2. [place] 5 mg q.6h. 3. DuoNeb q.i.d. 4. Zyloprim 300 mg. 5. Aspirin 81 mg. 6. Lipitor 40 mg q.h.s. 7. Symbicort 160/4.5 two puffs b.i.d. 8. Ceftazidime 2 g IV q.8h. 9. Celexa 20 mg q.a.m. 10.Plavix 75 mg q.a.m. 11.Colcrys 0.6 mg b.i.d. 12.Aricept 5 mg p.o. daily. 13.Pepcid 20 mg q.a.m. 14.Neurontin 300 mg p.o. t.i.d. 15.Heparin 5000 subcu b.i.d. 16.Dilaudid 1 mg q.3 p.r.n. 17.Atarax 25 mg q.h.s. 18.Motrin p.r.n. 19.Toradol 15 mg q.6 p.r.n. 20.Claritin. 21.Ativan. 22.Lopressor 25 mg p.o. b.i.d. 23.Vancomycin. 24.Narcan. 25.Habitrol 14. 26.Vancomycin. PHYSICAL EXAM: Patient is alert, oriented x3. The pulse is 86, blood pressure 120/72, respiration 22, temperature 98.7, pulse ox 94% on 2 L nasal cannula. HEENT: Conjunctivae normal. NEC: Jugular venous distention also visible in the root of the right neck. CARDIOVASCULAR: S1, S2 muffled. RESPIRATIONS: Breath sounds diminished in the bases. A few scattered rhonchi and crackles. ABDOMEN: Soft. Nontender. No mass palpable. LEGS: Significant swelling and erythema of the right leg with some excoriations and left leg swelling also present. NERVOUS SYSTEM: No focal deficits. LABS: At this time shows WBC 11.2, hemoglobin 9.2, and total bilirubin is 8.1. Other labs are noted. ASSESSMENT: 1. Acute cellulitis of the left ankle with possible sepsis, present on admission. 2. Acute left ankle gouty arthritis. 3. Severe pain. 4. Peripheral vascular disease. 5. Increased WBC. 6. Anemia, normocytic of chronic disease. 7. History of coronary artery disease. 8. History of chronic obstructive pulmonary disease. 9. History of deep vein thrombosis. 10.Gastroesophageal reflux disease. 11.Hypertension. 12.History of degenerative joint disease. 13.History of rheumatoid arthritis. 14.History of multiple dislocation of the left total hip. 15.History of psoriasis. 16.History of gout. 17.History of deep vein thrombosis of both legs. 18.History of Methicillin-resistant Staphylococcus aureus. 19.History of coronary artery disease/ stent. 20.History of angiography of the legs. 21.Continued ongoing nicotine dependence. 22.Protein calorie malnutrition with severe with BMI 18.8. 23.FULL CODE. RECOMMENDATIONS AND DISCUSSION: Recommend to continue current medications, management and symptomatic treatment. Otherwise, at this time, I would recommend continue the current medications. Continue with broad-spectrum IV antibiotics. We will cut down the dose of Colchicine 0.6 daily from tomorrow onwards. Otherwise, continue the rest of the medications. Toradol p.r.n. Repeat labs. Await cultures and Dr. Woodson will follow. Once again, the prognosis guarded because of multiple complex medical issues. Further recommendations to follow. MMODL / IJN: [id number] /
[2019-06-05] MEDS ORDERED: VANCOMYCIN TROUGH DUE 1 EACH MISC MISCELLANE ONE (18:00)
[2019-06-05] MEDS: ATORVASTATIN 40 MG TAB PO SCH (20:09)
[2019-06-05] MEDS: hydrOXYzine HCL 25 MG TAB PO SCH (20:11)
[2019-06-06] MEDS: VANCOMYCIN 1,000 MG in SODIUM CHLORIDE 0.9% 250 ML IVPB SCH ×3 (00:40→11:17)
[2019-06-06] MEDS: HYDROmorphone 1 MG/ML 1 ML SYRINGE IVP PRN ×5 (01:53→22:50)
[2019-06-06] MEDS: IPRATROPIUM-ALBUTEROL 3 ML NEB INHALATION SCH ×4 (07:39→20:51)
[2019-06-06] MEDS: SYMBICORT 160-4.5 MCG INHALER INHALATION SCH ×2 (07:39→20:51)
[2019-06-06] MEDS: NICOTINE 21MG/24HR PATCH TRANSDERM SCH (07:51)
[2019-06-06] MEDS: HEPARIN SODIUM,PORCINE 5,000 UNIT/ML 1 ML VIAL SQ SCH (07:52)
[2019-06-06] MEDS: GABAPENTIN 300 MG CAP PO SCH ×3 (07:53→20:31)
[2019-06-06] MEDS: METOPROLOL TARTRATE 25 MG TAB PO SCH ×2 (07:53→20:20)
[2019-06-06] MEDS: FAMOTIDINE 20 MG TAB PO SCH (07:53)
[2019-06-06] MEDS: ALLOPURINOL 300 MG TAB PO SCH (07:53)
[2019-06-06] MEDS: LORATADINE 10 MG TAB PO SCH (07:53)
[2019-06-06] MEDS: ASPIRIN 81 MG PO SCH (07:53)
[2019-06-06] MEDS: CITALOPRAM HYDROBROMIDE 20 MG TAB PO SCH (07:53)
[2019-06-06] MEDS: CLOPIDOGREL 75 MG TAB PO SCH (07:53)
[2019-06-06] MEDS: LISINOPRIL 10 MG TAB PO SCH (07:53)
[2019-06-06] MEDS: DONEPEZIL 5 MG TAB PO SCH (08:02)
[2019-06-06] MEDS: COLCHICINE 0.6 MG EACH PO SCH (08:02)
[2019-06-06 08:37] LABS: Anisocytosis Slight; Basophils % (A) 0 %; Eosinophils # (A) 0.2 k/uL (0-0.7); Eosinophils % (A) 2 %; HCT 35.1 % (39.0-53.0); HGB 10.6 gm/dL (13.0-17.5); Hypochromasia Marked; Lymphocytes # (A) 0.6 k/uL (1.0-4.8); Lymphocytes % (A) 6 %; MCH 29.5 pg (25.0-35.0); MCHC 30.2 g/dL (31.0-37.0); MCV 97.8 fL (80.0-100.0); Macrocytosis Slight; Mean Platelet Volume 8.1; Monocytes % (A) 9 %; Neutrophils # (A) 9.1 k/uL (1.3-7.7); Neutrophils % (A) 82 %; Platelet Count 282 k/uL (150-450); RBC 3.59 m/uL (4.30-5.90); RDW 16.7 % (11.5-15.5); WBC 11.1 k/uL (3.8-10.6)
[2019-06-06] MEDS ORDERED: HEPARIN SODIUM,PORCINE 5,000 UNIT/ML 1 ML VIAL IV ONE (09:35)
[2019-06-06] MEDS ORDERED: HEPARIN SODIUM,PORCINE 5,000 UNIT/ML 1 ML VIAL IV PRN (09:35)
[2019-06-06] MEDS: HEPARIN SOD,PORK IN 0.45% NACL 25,000 UNIT in 0.45% NACL 1 250ML.BAG IV SCH (10:06)
[2019-06-06 10:15] LABS: African American GFR (CKD) >90 (>60 ml/min/1.73 sqM); Anion Gap 10 mmol/L; Blood Urea Nitrogen 31 mg/dL (9-20); Calcium 8.3 mg/dL (8.4-10.2); Carbon Dioxide 17 mmol/L (22-30); Chloride 110 mmol/L (98-107); Glucose 152 mg/dL (74-99); Potassium 5.5 mmol/L (3.5-5.1); Sodium 137 mmol/L (137-145)
--- NOTE | 2019-06-06 10:21 | P.PN ---
Subjective Progress Note Date: 06/06/19 This is a 63-year-old gentleman with medical history of CAD, COPD, DVT, gastroesophageal reflux disease, hypertension, rheumatoid and osteoarthritis, extensive psoriasis, ongoing nicotine dependence and multiple other medical issues, presented to the ER with multiple medical issues including significant l eft ankle cellulitis, COPD.VSS. Maintaining O2 sats in the high 90s on 2 L nasal cannula. Complains of mild increased shortness of breath, chest x-ray ordered .Potassium 5.5. Denies chest pain, palpitations. Objective - Vital Signs Vital signs: Vital Signs Temp 97.4 F L 06/06/19 04:45 Pulse 88 06/06/19 07:48 Resp 20 06/06/19 04:45 BP 147/75 06/06/19 04:45 Pulse Ox 97 06/06/19 04:45 Intake & Output 06/05/19 06/06/19 06/06/19 18:59 06:59 18:59 Intake Total 700 800 Balance 700 800 Intake: Oral 700 800 Other: # Voids 1 3 - Exam VITAL SIGNS: As above GENERAL: Sitting up in bed, no acute distress HEENT: Conjunctivae normal. eyes normal. NECK: No JVD. No thyroid enlargement. No LNs CARDIOVASCULAR: S1, S2 regular.. No murmur RESPIRATION: Breath sounds diminished in the bases. Scattered rhonchi and crackles. Inspiratory and expiratory bilateral wheezing ABDOMEN: Soft, nontender . No guarding. no masses palpable. No ascites, No hepatosplenomegaly.Bowel sounds heard. LEGS: Extensive psoriasis.None draining excoriations of bilateral lower legs with edema,erythema. PSYCHIATRY: Alert and oriented X3, mood and affect normal. NERVOUS SYSTEM: Cranial N 2-12 grossly normal. Moves all 4 limbs. Diffuse weakness No focal deficits. Strength and sensation grossly intact.. - Labs CBC & Chem 7: 06/06/19 08:05 06/05/19 07:58 Labs: Abnormal Lab Results - Last 24 Hours (Table) 06/06/19 Range/Units 08:05 WBC 11.1 H (3.8-10.6) k/uL RBC 3.59 L (4.30-5.90) m/uL Hgb 10.6 L (13.0-17.5) gm/dL Hct 35.1 L (39.0-53.0) % MCHC 30.2 L (31.0-37.0) g/dL RDW 16.7 H (11.5-15.5) % Neutrophils # 9.1 H (1.3-7.7) k/uL Lymphocytes # 0.6 L (1.0-4.8) k/uL Microbiology - Last 24 Hours (Table) 06/04/19 07:10 Blood Culture - Preliminary Blood No Growth after 48 hours Assessment and Plan Assessment: -Extensive psoriasis, acute left ankle cellulitis with possible sepsis, present on admission -Acute left ankle gouty arthritis -Peripheral vascular disease -COPD, possible acute exacerbation -Acute hypoxic, hypercapnic respiratory failure secondary to the above -Ongoing nicotine dependence -CAD -Gastroesophageal reflux disease -Rheumatoid and osteoarthritis -Hypertension -History of DVT -Anxiety -Protein calorie malnutrition, BMI 18.8 -Hyperkalemia Plan: Continue on current medication regime ,monitoring and symptomatic treatment. Maintain nebulized bronchodilators, steroids,LABA. Two-view chest x-ray ordered. Pulmonary consulted. Pain management. Continue on colchicine. Antibiotics/skin care as per ID. Diet adjusted to include low potassium. Close monitoring of electrolytes with repeat labs ordered for a.m. further recommendations to follow The impression and plan of care has been dictated as directed. : I performed a history and examination of this patient, discussed the same with the dictator. I agree with the dictator's note ,documented as a scribe. Any additional findings or plans will be noted.
[2019-06-06] MEDS: HYDROcodone/APAP 5-325MG 1 EACH TAB PO PRN ×2 (10:44→16:45)
[2019-06-06 11:44] LABS: INR 0.9 (<1.2); Partial Thromboplastin Time 53.5 sec (22.0-30.0); Prothrombin Time 9.7 sec (9.0-12.0)
--- NOTE | 2019-06-06 11:52 | XR ---
EXAMINATION TYPE: XR chest 2V DATE OF EXAM: 06/06/2019 COMPARISON: 06/04/2019 HISTORY: Shortness of breath and congestion TECHNIQUE: Frontal and lateral views of the chest are obtained. FINDINGS: There is left hemidiaphragm elevation that appears chronic. Left basilar linear atelectasi s and chronic pleural parenchymal thickening are noted. There is increased interstitial prominence th roughout and comparison the prior. Cardiomediastinal silhouette is enlarged. Mild degenerative change s of the spine and shoulders. Right hemidiaphragm flattening on the lateral view suggests underlying COPD. IMPRESSION: Increased interstitial prominence throughout. Differential is for mild interstitial pulm onary edema or atypical pneumonitis. Chronic left hemidiaphragm elevation is again noted left left ba silar atelectasis.
[2019-06-06] MEDS ORDERED: diphenhydrAMINE 25 MG CAP PO PRN (12:39)
[2019-06-06] MEDS ORDERED: HEPARIN SODIUM,PORCINE 5,000 UNIT/ML 1 ML VIAL IV STA (16:18)
--- NOTE | 2019-06-06 19:52 | CONS ---
CONSULTATION PULMONARY/CRITICAL CONSULTATION: DATE OF SERVICE: June 06, 2019. This is a 63-year-old male who apparently presented to the emergency room with a nonhealing ulcer of the left foot. He has a previous history of MRSA infection because of peripheral artery disease. I am asked to see the patient because of his underlying COPD. The patient was recently seen in the office. Prior to that, I saw him in the hospital. He spent a couple days in observation unit with COPD exacerbation. When I saw in the office in followup, we did pulmonary function testing on the patient and the patient clearly has severe COPD. Unfortunately, he continues to smoke cigarettes. We put him on updrafts with albuterol, Atrovent, and also put him on Symbicort 160/4.5, 2 puffs twice a day. Currently, the patient is doing well from the pulmonary standpoint. He denies any worsening shortness of breath, difficulty breathing, coughing, wheezing, phlegm production, or any other complaints for that matter. Again, he was admitted not for COPD but for his left foot ulcer. HOME MEDICATIONS: Include escitalopram, lisinopril, aspirin, allopurinol, Plavix, hydroxyzine, famotidine, Zyrtec, Ultram, Aricept, Humira, flaxseed oil, Neurontin, ProAir inhaler, Symbicort 160/4.5, 2 puffs twice a day and DuoNeb. He is also on prednisone 10 mg a day as a maintenance dose. His other medications include Lipitor. ALLERGIES: Denied. PAST MEDICAL HISTORY: Positive for CAD, COPD, DVT, GERD, hypertension, osteoarthritis, rheumatoid arthritis, multiple dislocations of the left hip, psoriasis, gout, DVT, peripheral vascular disease, and nonhealing ulcers. He also suffers from chronic back and hip pain. SURGICAL HISTORY: Includes among other things, back surgery, heart catheterization with stent, joint replacement surgery, atherectomy, balloon angioplasty, multiple cardiac catheterizations, peripheral vascular stent placements, back surgery, left hip replacement, left ankle surgery, laparoscopic Rebekah fundoplication, among other surgeries. SOCIAL HISTORY: Positive for ongoing tobacco use. Denies any alcohol or illicit drug use. FAMILY HISTORY: Apparently negative. Mother is apparently but apparently healthy prior to that. Father's history is not known according to the patient. REVIEW OF SYSTEMS: CONSTITUTIONAL negative. NEUROLOGIC negative. HEENT negative. CARDIOVASCULAR negative. PULMONARY: Chronic shortness of breath on exertion, at baseline. GI negative. negative. RHEUMATOLOGIC negative. IMMUNOLOGIC negative. ENDOCRINOLOGIC negative. DERMATOLOGIC: Nonhealing ulcer, left ankle, left foot. PHYSICAL EXAMINATION: VITAL SIGNS: Current vital signs: Temperature 97.4, heart rate 75, respiratory rate 20, blood pressure 147/75 mean 99, 2 L saturation 97%. GENERAL: Appears in no acute distress. HEENT examination: Grossly unremarkable. Mucous membranes are moist. No oral lesions. He is not wearing any supplemental oxygen. He did not desaturate on a 6 minute walk distance in the office. NECK: Supple. Full range of motion. No adenopathy or thyromegaly. Neck veins are flat. CARDIOVASCULAR examination reveals regular rhythm and rate. Heart rate 80. S1, S2 normal. No S3, S4, or murmur. LUNGS: Reveal relatively clear breath sounds. A few scattered rhonchi. No wheezes or crackles. Breath sounds are diminished. There is slight prolongation on forced maneuver. ABDOMEN: Soft. Bowel sounds are heard. EXTREMITIES are intact. No cyanosis, clubbing, or edema. SKIN: Without rash. NEUROLOGIC: Examination is nonfocal. The left foot and ankle are wrapped. I did not remove the wraps. Chest x-ray shows increased interstitial prominence throughout. LABS: Reviewed. White count 11.1, hemoglobin 10.6, hematocrit 35.1, platelet count 282,000. PT 9.7, INR 0.9, PTT 53.5. Sodium 137, potassium 5.5, chloride 110, CO2 17, BUN and creatinine were 31 and 0.8. Calcium 8.3. Medications are reviewed. The patient is on Symbicort 160/4.5, 2 puffs twice a day. The patient is also on ceftazidime and albuterol, Atrovent updrafts and vancomycin. He is also on nicotine patch. ASSESSMENT: 1. Poorly healing ulcer, left foot, with possible MRSA infection. 2. Severe chronic obstructive pulmonary disease from chronic and ongoing tobacco use. 3. Multiple other medical problems and comorbidities as listed above in the past medical history. PLAN: From the COPD standpoint, the patient is stable. We will see as needed. He is currently on Combivent. He is currently on updrafts with albuterol and Atrovent and Symbicort 160/4.5, 2 puffs twice a day. This is essentially what he is on as an outpatient. No additional recommendations are made. He is counseled about the importance of smoking cessation. Additional recommendations and suggestions are forthcoming. Prognosis from the COPD standpoint is very guarded. We will continue to follow. MMODL / IJN: [id number] /
[2019-06-06] MEDS: KETOROLAC 30 MG/ML 1 ML VIAL IVP PRN (20:19)
[2019-06-06] MEDS: ATORVASTATIN 40 MG TAB PO SCH (20:20)
[2019-06-06] MEDS: hydrOXYzine HCL 25 MG TAB PO SCH (20:31)
--- NOTE | 2019-06-06 23:38 | PN ---
PROGRESS NOTE DATE OF SERVICE: 06/06/2019 REASON FOR FOLLOWUP: Left medial ankle wound and cellulitis. HISTORY OF PRESENT ILLNESS: The patient is a 63-year-old male with a past medical history significant for chronic nonhealing wound to the left medial ankle area, for which the patient has followed with us at [facility]. The patient has a history of PAD and is status post multiple stenting to the left leg. The patient's wound subsequently healed up; however, the patient presented to the [facility] ER on June 04 with excruciating pain to the left medial ankle wound area which apparently had opened up and was draining some purulent material, with associated tenderness. The patient defines his pain as being more of a throbbing, almost 7 to 8 out of 10. No significant radiation. The patient denies high-grade fever. The patient on presentation to hospital did have an x-ray which showed no bony changes. Bone scan was negative as well. Blood cultures were obtained which are currently pending. No local wound culture was done. He is currently being treated with vancomycin and Fortaz. REVIEW OF SYSTEMS: Positive points have been mentioned in the HPI. The rest of the systems are negative. Past medical and surgical history with no change. Medication reviewed. PHYSICAL EXAMINATION: Blood pressure is 114/80 with a pulse of 78, temperature 97. He is 95% on 2 L nasal cannula. General description is an elderly male lying in bed in no distress. RESPIRATORY SYSTEM: Unlabored breathing. Clear to auscultation anteriorly. HEART: S1, S2. Regular rate and rhythm. ABDOMEN: Soft. No tenderness. No guarding or rigidity. EXTREMITIES: No edema of the feet. Left medial ankle area with a wound with some purulent drainage. Minimal surrounding swelling. No foul smell. NEUROLOGIC: The patient is awake, alert, oriented x3. Mood and affect normal. LABS: Hemoglobin 10.6, white count 11.1. BUN of 31, creatinine 0.90. DIAGNOSTIC IMPRESSION AND PLAN: Patient with left lower extremity wound with secondary cellulitis in this patient who has a previous history of wound in the same location. No clear history of MRSA infection, but question of secondary MRSA versus a gram-negative infection. PLAN: 1. Wound cultures, both aerobic and anaerobic. 2. Vancomycin, Pharmacy to dose. Target of 15. Fortaz empirically. 3. His clinical response as well as cultures will determine his discharge antibiotics. Family at the bedside. Their questions and concerns were answered. MMODL / IJN: [id number] /
[2019-06-07] MEDS: VANCOMYCIN 1,000 MG in SODIUM CHLORIDE 0.9% 250 ML IVPB SCH ×2 (00:28→11:34)
[2019-06-07] MEDS: HYDROmorphone 1 MG/ML 1 ML SYRINGE IVP PRN ×5 (04:17→19:56)
[2019-06-07] MEDS: ALLOPURINOL 300 MG TAB PO SCH (07:27)
[2019-06-07] MEDS: ASPIRIN 81 MG PO SCH ×2 (07:28→08:41)
[2019-06-07] MEDS: CLOPIDOGREL 75 MG TAB PO SCH ×2 (07:28→08:41)
[2019-06-07] MEDS: LORATADINE 10 MG TAB PO SCH (07:28)
[2019-06-07] MEDS: LISINOPRIL 10 MG TAB PO SCH (07:28)
[2019-06-07] MEDS: DONEPEZIL 5 MG TAB PO SCH (07:28)
[2019-06-07] MEDS: FAMOTIDINE 20 MG TAB PO SCH (07:28)
[2019-06-07] MEDS: GABAPENTIN 300 MG CAP PO SCH ×3 (07:28→22:38)
[2019-06-07] MEDS: COLCHICINE 0.6 MG EACH PO SCH (07:28)
[2019-06-07] MEDS: CITALOPRAM HYDROBROMIDE 20 MG TAB PO SCH (07:28)
[2019-06-07] MEDS: NICOTINE 21MG/24HR PATCH TRANSDERM SCH (07:42)
[2019-06-07] MEDS: METOPROLOL TARTRATE 25 MG TAB PO SCH ×2 (07:42→22:05)
[2019-06-07 07:58] LABS: African American GFR (CKD) >90 (>60 ml/min/1.73 sqM); Anion Gap 11 mmol/L; Blood Urea Nitrogen 35 mg/dL (9-20); Calcium 8.6 mg/dL (8.4-10.2); Carbon Dioxide 17 mmol/L (22-30); Chloride 111 mmol/L (98-107); Glucose 105 mg/dL (74-99); Potassium 5.2 mmol/L (3.5-5.1); Sodium 139 mmol/L (137-145)
[2019-06-07 08:02] LABS: Anisocytosis Slight; Basophils % (A) 0 %; Eosinophils # (A) 0.1 k/uL (0-0.7); Eosinophils % (A) 1 %; HGB 9.4 gm/dL (13.0-17.5); Hypochromasia Marked; Lymphocytes # (A) 0.6 k/uL (1.0-4.8); Lymphocytes % (A) 8 %; MCH 29.2 pg (25.0-35.0); MCHC 30.3 g/dL (31.0-37.0); MCV 96.4 fL (80.0-100.0); Mean Platelet Volume 7.5; Monocytes # (A) 0.4 k/uL (0-1.0); Monocytes % (A) 5 %; Neutrophils # (A) 6.7 k/uL (1.3-7.7); Neutrophils % (A) 84 %; Platelet Count 279 k/uL (150-450); RBC 3.21 m/uL (4.30-5.90); RDW 17.1 % (11.5-15.5); WBC 7.9 k/uL (3.8-10.6)
[2019-06-07] MEDS: IPRATROPIUM-ALBUTEROL 3 ML NEB INHALATION SCH ×4 (08:02→19:51)
[2019-06-07] MEDS: SYMBICORT 160-4.5 MCG INHALER INHALATION SCH ×2 (08:02→19:51)
[2019-06-07] MEDS ORDERED: HEPARIN SODIUM,PORCINE 5,000 UNIT/ML 1 ML VIAL IV STA ×2 (08:11→15:03)
[2019-06-07 08:14] LABS: C Reactive Protein 215.9 mg/L (<10.0)
[2019-06-07] MEDS ORDERED: VANCOMYCIN TROUGH DUE 1 EACH MISC MISCELLANE ONE (11:00)
--- NOTE | 2019-06-07 11:42 | P.PN ---
Subjective Progress Note Date: 06/07/19 Principal diagnosis: Poorly healing ulcer, severe COPD On 06/07/2019 patient seen in follow-up on medical surgical floor. His COPD stable, at his baseline, without acute exacerbation, no worsening shortness of breath, lung sounds are diminished, no wheezing, no rhonchi, he is being treated for left lower extremity nonhealing ulcer, current antibiotic is with Fortaz and vancomycin, left lower extremity is swollen, there is 1+ pedal edema, there is a draining wound on his left ankle. There is a possibility of possible acute ischemic left phlegm, and patient has been scheduled for peripheral angiogram by Dr. Dee. Denies any chest pain, or palpitations, no high-grade fevers no chills or rigors. Left lower extremity is still painful. Patient is on aspirin, atorvastatin, Plavix. Nuclear bone scan was done showing delayed increased uptake on both sides of the left ankle joint, which is nonspecific could relate to arthritis, no focal bone destruction was noted and osteomyelitis was thought to be less likely. Objective - Vital Signs Vital signs: Vital Signs Temp 97.6 F 06/07/19 04:20 Pulse 86 06/07/19 08:15 Resp 28 H 06/07/19 04:20 BP 112/80 06/07/19 04:20 Pulse Ox 97 06/07/19 04:20 Intake & Output 06/06/19 06/07/19 06/07/19 18:59 06:59 18:59 Intake Total 1065.165 462.359 87.618 Balance 1065.165 462.359 87.618 Weight 57.606 kg Intake: Intake, IV Titration 45.165 62.359 87.618 Amount Heparin Sod,Pork in 0.45% 45.165 62.359 87.618 NaCl 25,000 unit In 0.45 % NaCl 1 250ml.bag @ 12 UNITS/KG/HR 6.913 mls/hr IV .Q24H JACINTO Rx#: [id number] Oral 1020 400 Other: Voiding Method Urinal # Voids 5 2 # Bowel Movements 1 - Exam GENERAL EXAM: Alert, pleasant, 63-year-old white male, on room air comfortable in no apparent distress. HEAD: Normocephalic/atraumatic. EYES: Normal reaction of pupils, equal size. Conjunctiva pink, sclera white. NOSE: Clear with pink turbinates. THROAT: No erythema or exudates. NECK: No masses, no JVD, no thyroid enlargement, no adenopathy. CHEST: No chest wall deformity. Symmetrical expansion. LUNGS: Diminished air entry with no crackles, wheeze, rhonchi or dullness. CVS: Regular rate and rhythm, normal S1 and S2, no gallops, no murmurs, no rubs ABDOMEN: Soft, nontender. No hepatosplenomegaly, normal bowel sounds, no guarding or rigidity. EXTREMITIES: No clubbing, left lower ankle edema, and 1+ left pedal edema, with the draining wound on the left foot, tender to touch, with surrounding chronic venous stasis discoloration involving both extremities, no cyanosis, present pulses and upper and lower extremities. MUSCULOSKELETAL: Muscle strength and tone normal. SPINE: No scoliosis or deformity SKIN: No rashes CENTRAL NERVOUS SYSTEM: Alert and oriented -3. No focal deficits, tone is normal in all 4 extremities. PSYCHIATRIC: Alert and oriented -3. Appropriate affect. Intact judgment and insight. - Labs CBC & Chem 7: 06/07/19 07:21 06/07/19 07:21 Labs: Abnormal Lab Results - Last 24 Hours (Table) 06/06/19 06/06/19 06/07/19 Range/Units 11:17 22:23 07:21 RBC 3.21 L (4.30-5.90) m/uL Hgb 9.4 L (13.0-17.5) gm/dL Hct 31.0 L (39.0-53.0) % MCHC 30.3 L (31.0-37.0) g/dL RDW 17.1 H (11.5-15.5) % Lymphocytes # 0.6 L (1.0-4.8) k/uL APTT 53.5 H 30.2 H (22.0-30.0) sec Potassium (3.5-5.1) mmol/L Chloride (98-107) mmol/L Carbon Dioxide (22-30) mmol/L BUN (9-20) mg/dL Glucose (74-99) mg/dL C-Reactive Protein (<10.0) mg/L 06/07/19 06/07/19 Range/Units 07:21 07:21 RBC (4.30-5.90) m/uL Hgb (13.0-17.5) gm/dL Hct (39.0-53.0) % MCHC (31.0-37.0) g/dL RDW (11.5-15.5) % Lymphocytes # (1.0-4.8) k/uL APTT 30.7 H (22.0-30.0) sec Potassium 5.2 H (3.5-5.1) mmol/L Chloride 111 H (98-107) mmol/L Carbon Dioxide 17 L (22-30) mmol/L BUN 35 H (9-20) mg/dL Glucose 105 H (74-99) mg/dL C-Reactive Protein 215.9 H (<10.0) mg/L Microbiology - Last 24 Hours (Table) 06/07/19 00:01 Wound Culture - Preliminary Ankle - Left 06/07/19 00:01 Anaerobic Culture - Preliminary Ankle - Left 06/04/19 07:10 Blood Culture - Preliminary Blood No Growth after 72 hours Assessment and Plan Plan: Assessment: #1. Poorly healing left foot ulcer with the possibilities involving cellulitis, and possibility of acute left limb ischemia #2. Severe COPD, with a baseline FEV1 of 1.12 L or 34% of predicted, consistent with stage III COPD #3. Hypertension #4. Psoriasis #5. Gout #6. Ongoing nicotine dependence, #7. History of MRSA infection #8. GERD/reflux #9. History of DVT #10. Coronary artery disease #11. Rheumatoid arthritis #12. History of peripheral vascular disease with previous history of angioplasty Plan: From pulmonary perspective patient is at his baseline, his COPD stable, continue with nebulized wrinkled dilators, Symbicort, was advised to abstain from smoking. Continue with the antibiotics per ID service recommendations, patient is being considered for angiogram to rule out left lower limb ischemia. We will continue on as-needed basis. I performed a history & physical examination of the patient and discussed their management with my nurse practitioner, Emily Jacome. I reviewed the nurse practitioner's note and agree with the documented findings and plan of care. Lung sounds are positive for diminished breath sounds. The findings and the impression was discussed with the patient. I attest to the documentation by the nurse practitioner. Time with Patient: Less than 30
[2019-06-07] MEDS: HEPARIN SOD,PORK IN 0.45% NACL 25,000 UNIT in 0.45% NACL 1 250ML.BAG IV SCH ×2 (12:34→13:08)
--- NOTE | 2019-06-07 12:46 | P.PN ---
Subjective Progress Note Date: 06/07/19 This is a 63-year-old gentleman with medical history of CAD, COPD, DVT, gastroesophageal reflux disease, hypertension, rheumatoid and osteoarthritis, extensive psoriasis, ongoing nicotine dependence and multiple other medical issues, presented to the ER with multiple medical issues including significant l eft ankle cellulitis, COPD.VSS. Maintaining O2 sats in the high 90s on 2 L nasal cannula. Complains of mild increased shortness of breath, chest x-ray ordered .Potassium 5.5. Denies chest pain, palpitations. 06/07/2019 Possible acute ischemic left limb, scheduled for peripheral angiogram today with Dr. Dee. Maintained on Fortaz, vancomycin. Afebrile, normal WBC. Respiratory status stable, at baseline. Denies chest pain, palpitations or increased shortness of breath. Chest x-ray of yesterday reported increased interstitial prominence throughout, possible mild interstitial pulmonary edema or atypical pneumonitis, chronic left hemidiaphragm elevation, left basilar atelectasis. Evaluated by pulmonary with recommendations noted and appreciated. Objective - Vital Signs Vital signs: Vital Signs Temp 97.6 F 06/07/19 04:20 Pulse 86 06/07/19 08:15 Resp 28 H 06/07/19 04:20 BP 112/80 06/07/19 04:20 Pulse Ox 97 06/07/19 04:20 Intake & Output 06/06/19 06/07/19 06/07/19 18:59 06:59 18:59 Intake Total 1065.165 462.359 87.618 Balance 1065.165 462.359 87.618 Weight 57.606 kg Intake: Intake, IV Titration 45.165 62.359 87.618 Amount Heparin Sod,Pork in 0.45% 45.165 62.359 87.618 NaCl 25,000 unit In 0.45 % NaCl 1 250ml.bag @ 12 UNITS/KG/HR 6.913 mls/hr IV .Q24H JACINTO Rx#: [id number] Oral 1020 400 Other: Voiding Method Urinal # Voids 5 2 # Bowel Movements 1 - Exam VITAL SIGNS: As above GENERAL: Sitting up in bed, no acute distress HEENT: Conjunctivae normal. eyes normal. NECK: No JVD. No thyroid enlargement. No LNs CARDIOVASCULAR: S1, S2 regular. No murmur RESPIRATION: Breath sounds diminished in the bases. No rhonchi, crackles or wheezing this morning. ABDOMEN: Soft, nontender . No guarding. no masses palpable. No ascites, No hepatosplenomegaly.Bowel sounds heard. LEGS: Dry chronic bilateral lower extremity discoloration, psoriasis, venous stasis. Tender Left foot/ankle edema with dressing clean dry and intact. PSYCHIATRY: Alert and oriented X3, mood and affect normal. NERVOUS SYSTEM: Cranial N 2-12 grossly normal. Moves all 4 limbs. Diffuse weakness No focal deficits. Strength and sensation grossly intact.. - Labs CBC & Chem 7: 06/07/19 07:21 06/07/19 07:21 Labs: Abnormal Lab Results - Last 24 Hours (Table) 06/06/19 06/06/19 06/07/19 Range/Units 11:17 22:23 07:21 RBC 3.21 L (4.30-5.90) m/uL Hgb 9.4 L (13.0-17.5) gm/dL Hct 31.0 L (39.0-53.0) % MCHC 30.3 L (31.0-37.0) g/dL RDW 17.1 H (11.5-15.5) % Lymphocytes # 0.6 L (1.0-4.8) k/uL APTT 53.5 H 30.2 H (22.0-30.0) sec Potassium (3.5-5.1) mmol/L Chloride (98-107) mmol/L Carbon Dioxide (22-30) mmol/L BUN (9-20) mg/dL Glucose (74-99) mg/dL C-Reactive Protein (<10.0) mg/L 06/07/19 06/07/19 Range/Units 07:21 07:21 RBC (4.30-5.90) m/uL Hgb (13.0-17.5) gm/dL Hct (39.0-53.0) % MCHC (31.0-37.0) g/dL RDW (11.5-15.5) % Lymphocytes # (1.0-4.8) k/uL APTT 30.7 H (22.0-30.0) sec Potassium 5.2 H (3.5-5.1) mmol/L Chloride 111 H (98-107) mmol/L Carbon Dioxide 17 L (22-30) mmol/L BUN 35 H (9-20) mg/dL Glucose 105 H (74-99) mg/dL C-Reactive Protein 215.9 H (<10.0) mg/L Microbiology - Last 24 Hours (Table) 06/04/19 07:10 Blood Culture - Preliminary Blood No Growth after 72 hours Assessment and Plan Assessment: -Nonhealing left foot ulcer, possible cellulitis suspecte acute left limb ischemia, angiogram pending. -Acute left ankle gouty arthritis -Psoriasis -Peripheral vascular disease -COPD, severe, at baseline -Chronic left hemidiaphragm elevation -Atelectasis -Acute hypoxic, hypercapnic respiratory failure secondary to the above -Ongoing nicotine dependence -CAD -Gastroesophageal reflux disease -Rheumatoid and osteoarthritis -Hypertension -History of DVT -Anxiety -Protein calorie malnutrition, BMI 18.8 -Hyperkalemia Plan: Continue on current medication regime ,monitoring and symptomatic treatment. Maintain nebulized bronchodilators, steroids,LABA. Smoking cessation reinforced. Angiogram pending. Antibiotics/skin care as per ID. Close monitoring of electrolytes with repeat labs ordered for a.m. further recommendations to follow. The impression and plan of care has been dictated as directed. : I performed a history and examination of this patient, discussed the same with the dictator. I agree with the dictator's note ,documented as a scribe. Any additional findings or plans will be noted.
[2019-06-07] MEDS: HYDROcodone/APAP 5-325MG 1 EACH TAB PO PRN (13:12)
--- NOTE | 2019-06-07 14:32 | P.PN ---
Subjective This is a pleasant 63-year-old male past medical history significant for coronary artery disease status post stent placement to the proximal circumflex in 2012, severe peripheral vascular disease status post multiple interventions, hypertension, gastroesophageal reflux disease, chronic systolic heart failure and chronic nicotine dependence. He follows in the office with Dr. Howell. He presented to the hospital secondary to lower extremity wound we have been consulted secondary to peripheral vascular disease. He is seen and examined sitting up in bed in significant pain to the left foot wound. He denies symptoms of chest pain, shortness of breath, dizziness or palpitations. He is scheduled to undergo outpatient cardiac catheterization secondary to a change in his ejection fraction noted on recent echocardiogram. Currently m aintained on aspirin 81 mg daily, atorvastatin 40 mg daily, Plavix 75 mg daily, lisinopril 10 mg daily. September 2018 he underwent atherectomy, stent placement and balloon angioplasty of the left SFA. Currently maintained on dual antiplatelet therapy. Echocardiogram obtained earlier this month reveals impaired LV systolic function with ejection fraction 20-25%. EKG reveals sinus mechanism heart rate of 92, right bundle branch block pattern LVH. Laboratory data reviewed, WBC 17, hemoglobin 11.2, platelets 287, sodium 140, potassium 4.7, creatinine 0.74. 06/06/2019 Discussed the case with Dr. Howell and there is concern for acute limb ischemia and he recommend proceeding with peripheral angiogram. Pt continues to have discomfort in the left lower extremity. Blood pressure 114/80 heart rate 78 afebrile and maintaining oxygen saturation on nasal cannula. Laboratory data reviewed, WBC 11.1, hgb 10.6, plt 282, sodium 137, potassium 5.5, creatinine 0.8. Chest xray reveals increased interstitial prominence throughout. GENERAL: This is a 63-year-old male in no apparent distress at the time of my examination. HEENT: Head is atraumatic, normocephalic. Pupils are equal, round. Sclerae anicteric. Conjunctivae are clear. Mucous membranes of the mouth are moist. Neck is supple. There is no jugular venous distention. No carotid bruit is heard. LUNGS: Scattered rhonchi, no wheezes or rales. Diminished bilaterally. No chest wall tenderness is noted on palpation or with deep breathing. EXTREMITIES: Chidi wrap in place left lower extremity, ongoing pain. ASSESSMENT Left lower extremity ulceration concern for acute limb ischemia. History of severe peripheral vascular disease status post multiple interventions Coronary artery disease status post stent placement to the circumflex 2012 Hypertension Chronic systolic heart failure, currently euvolemic COPD, severe Chronic nicotine dependence PLAN Boarded for peripheral angiogram with Dr. Howell tomorrow. Initiate on heparin infusion. Further recommendations to follow based on clinical course. Nurse Practitioner note has been reviewed, I agree with a documented findings and plan of care. Patient was seen and examined. Objective - Vital Signs Vital signs: Vital Signs Temp 97.2 F L 06/07/19 12:44 Pulse 83 06/07/19 12:44 Resp 20 06/07/19 12:44 BP 146/80 06/07/19 12:44 Pulse Ox 94 L 06/07/19 12:44 Intake & Output 06/06/19 06/07/19 06/07/19 18:59 06:59 18:59 Intake Total 1065.165 462.359 132.579 Balance 1065.165 462.359 132.579 Weight 57.606 kg Intake: Intake, IV Titration 45.165 62.359 132.579 Amount Heparin Sod,Pork in 0.45% 45.165 62.359 132.579 NaCl 25,000 unit In 0.45 % NaCl 1 250ml.bag @ 12 UNITS/KG/HR 6.913 mls/hr IV .Q24H JACINTO Rx#: [id number] Oral 1020 400 Other: Voiding Method Urinal # Voids 5 2 # Bowel Movements 1 - Labs CBC & Chem 7: 06/07/19 07:21 06/07/19 07:21 Labs: Abnormal Lab Results - Last 24 Hours (Table) 06/06/19 06/07/19 06/07/19 Range/Units 22:23 07:21 07:21 RBC 3.21 L (4.30-5.90) m/uL Hgb 9.4 L (13.0-17.5) gm/dL Hct 31.0 L (39.0-53.0) % MCHC 30.3 L (31.0-37.0) g/dL RDW 17.1 H (11.5-15.5) % Lymphocytes # 0.6 L (1.0-4.8) k/uL APTT 30.2 H (22.0-30.0) sec Potassium 5.2 H (3.5-5.1) mmol/L Chloride 111 H (98-107) mmol/L Carbon Dioxide 17 L (22-30) mmol/L BUN 35 H (9-20) mg/dL Glucose 105 H (74-99) mg/dL C-Reactive Protein 215.9 H (<10.0) mg/L 06/07/19 Range/Units 07:21 RBC (4.30-5.90) m/uL Hgb (13.0-17.5) gm/dL Hct (39.0-53.0) % MCHC (31.0-37.0) g/dL RDW (11.5-15.5) % Lymphocytes # (1.0-4.8) k/uL APTT 30.7 H (22.0-30.0) sec Potassium (3.5-5.1) mmol/L Chloride (98-107) mmol/L Carbon Dioxide (22-30) mmol/L BUN (9-20) mg/dL Glucose (74-99) mg/dL C-Reactive Protein (<10.0) mg/L Microbiology - Last 24 Hours (Table) 06/07/19 00:01 Gram Stain - Preliminary Ankle - Left Wound Culture - Preliminary 06/07/19 00:01 Anaerobic Culture - Preliminary Ankle - Left 06/04/19 07:10 Blood Culture - Preliminary Blood No Growth after 72 hours
[2019-06-07] MEDS: ATORVASTATIN 40 MG TAB PO SCH (22:05)
[2019-06-07] MEDS: KETOROLAC 30 MG/ML 1 ML VIAL IVP PRN (22:25)
[2019-06-07] MEDS: hydrOXYzine HCL 25 MG TAB PO SCH (22:38)
[2019-06-08] MEDS: HYDROmorphone 1 MG/ML 1 ML SYRINGE IVP PRN ×2 (00:18→07:33)
[2019-06-08] MEDS ORDERED: KETOROLAC 30 MG/ML 1 ML VIAL ONE (03:20)
[2019-06-08] MEDS ORDERED: HYDROmorphone 1 MG/ML 1 ML SYRINGE ONE (03:20)
[2019-06-08 05:35] LABS: Anisocytosis Slight; Basophils % (A) 1 %; Eosinophils # (A) 0.2 k/uL (0-0.7); Eosinophils % (A) 2 %; HCT 27.6 % (39.0-53.0); HGB 8.4 gm/dL (13.0-17.5); Hypochromasia Marked; Lymphocytes # (A) 0.6 k/uL (1.0-4.8); Lymphocytes % (A) 8 %; MCH 29.4 pg (25.0-35.0); MCHC 30.6 g/dL (31.0-37.0); MCV 96.2 fL (80.0-100.0); Mean Platelet Volume 7.7; Monocytes # (A) 0.5 k/uL (0-1.0); Monocytes % (A) 7 %; Neutrophils # (A) 5.9 k/uL (1.3-7.7); Neutrophils % (A) 81 %; Platelet Count 268 k/uL (150-450); RBC 2.87 m/uL (4.30-5.90); RDW 16.9 % (11.5-15.5); WBC 7.3 k/uL (3.8-10.6)
--- NOTE | 2019-06-08 06:06 | PN ---
PROGRESS NOTE DATE OF SERVICE: 06/07/2019 REASON FOR FOLLOWUP: Left ankle wound and cellulitis. INTERVAL HISTORY: The patient is currently afebrile. Patient has been breathing comfortably. Denies having any chest pain or cough. No abdominal pain or any worsening pain to the left ankle wound area. PHYSICAL EXAMINATION: On examination, blood pressure 134/74 with a pulse of 86, temperature 97.9. He is 96% on 2 L nasal cannula. General description is an elderly male lying in bed in no distress. RESPIRATORY SYSTEM: Unlabored breathing, clear to auscultation anteriorly. HEART: S1, S2. Regular rate and rhythm. ABDOMEN: Soft, no tenderness. Left ankle wound is currently dressed up. Minimal drainage on the dressing. LABS: Hemoglobin is 9.4, white count 7.9. Creatinine is 0.86. Vancomycin trough is on the high side. DIAGNOSTIC IMPRESSION AND PLAN: Patient with left ankle wound with secondary cellulitis. Cultures currently pending. To continue with vancomycin and Fortaz. Will monitor his clinical course and kidney function closely. Continue supportive care. MMODL / IJN: [id number] /
[2019-06-08] MEDS: VANCOMYCIN 1,000 MG in SODIUM CHLORIDE 0.9% 250 ML IVPB SCH ×2 (06:27→22:38)
[2019-06-08] MEDS: COLCHICINE 0.6 MG EACH PO SCH (07:36)
[2019-06-08] MEDS: ALLOPURINOL 300 MG TAB PO SCH (07:36)
[2019-06-08] MEDS: CITALOPRAM HYDROBROMIDE 20 MG TAB PO SCH (07:36)
[2019-06-08] MEDS: GABAPENTIN 300 MG CAP PO SCH ×3 (07:37→20:15)
[2019-06-08] MEDS: FAMOTIDINE 20 MG TAB PO SCH (07:37)
[2019-06-08] MEDS: LISINOPRIL 10 MG TAB PO SCH (07:37)
[2019-06-08] MEDS: DONEPEZIL 5 MG TAB PO SCH (07:37)
[2019-06-08] MEDS: LORATADINE 10 MG TAB PO SCH (07:38)
[2019-06-08] MEDS: CLOPIDOGREL 75 MG TAB PO SCH (07:39)
[2019-06-08] MEDS: ASPIRIN 81 MG PO SCH (07:39)
[2019-06-08] MEDS: METOPROLOL TARTRATE 25 MG TAB PO SCH ×2 (07:41→20:15)
[2019-06-08] MEDS: SYMBICORT 160-4.5 MCG INHALER INHALATION SCH ×2 (08:10→19:39)
[2019-06-08] MEDS: IPRATROPIUM-ALBUTEROL 3 ML NEB INHALATION SCH ×4 (08:10→19:39)
[2019-06-08] MEDS: NICOTINE 21MG/24HR PATCH TRANSDERM SCH (08:48)
[2019-06-08] MEDS ORDERED: ASPIRIN 81 MG ONE (09:34)
[2019-06-08] MEDS ORDERED: MIDAZOLAM (PF) 2 MG/2 ML VIAL IVP ONE (10:50)
[2019-06-08] MEDS ORDERED: LIDOCAINE 1% INJ 10MG/ML (20 ML MDV) SQ ONE (10:52)
[2019-06-08] MEDS ORDERED: HYDROmorphone 1 MG/ML 1 ML SYRINGE IVP ONE (10:58)
[2019-06-08] MEDS ORDERED: IV FLUID CONTINUATION 1,000 ML IV ONE (11:07)
[2019-06-08] MEDS ORDERED: SODIUM CHLORIDE 0.9% 1,000 ML IV SCH (11:30)
--- NOTE | 2019-06-08 12:04 | LTR ---
DATE OF SERVICE: June 08, 2019 RE: Anikamarcos Carmita Dear Dr. Woodson; Mr. Carmita Tineo underwent today an abdominal aortogram and bilateral lower extremities runoff and that showed patent stent in the left iliac and left SFA with good flow below the knee on the left side as well. Given the above anatomy, I did recommend maximized medical treatment and follow up with the patient. I want to thank you for allowing us to participate in his care and please do not hesitate to call if you have any question or concern. Sincerely, Hector Howell MD MMTONIOL / EDWARDN: [id number] /
[2019-06-08] MEDS: KETOROLAC 30 MG/ML 1 ML VIAL IVP PRN (12:12)
--- NOTE | 2019-06-08 12:22 | AN ---
ANGIOGRAPHY REPORT DATE OF SERVICE: June 08, 2019 PERFORMING PHYSICIAN: Hector Howell MD, grinding room supervisor. PROCEDURE PERFORMED: 1. An abdominal aortogram. 2. Bilateral lower extremities runoff. 3. Selective left [id number] angiogram. INDICATION: This is a 63-year-old gentleman with history of peripheral arterial disease and prior percutaneous peripheral intervention, who presented to the hospital with left ankle pain. He was diagnosed in the past with critical limb ischemia of the left foot. He was diagnosed with critical limb ischemia of the left foot in the past. There was concern about severe PAD and about acute limb ischemia and because of that an abdominal aortogram and bilateral lower extremities runoff was advised. APPROACH: Right common femoral artery. COMPLICATION: None. LEVEL OF SEDATION: Moderate with sedation length of 24 minutes. PROCEDURE DESCRIPTION: After obtaining an informed consent, the patient was brought to the cardiac outside laborer. The right common femoral artery was cannulated using micropuncture technique, the micropuncture wire passed easily and I placed a 5-Anguillan sheath. I did an abdominal aortogram and bilateral lower extremities runoff using 5-Anguillan pigtail catheter which was initially placed at the level of the renal arteries then it was pulled into above the bifurcation of the aorta to right and left common iliac arteries. I did after that select the left popliteal using 5-Anguillan Rim catheter with 0.035 Chicken Advantage wire. After that, I did exchange my Rim catheter into 0.0353 CXI using 0.035 Chicken Advantage wire. After that I did selective left uvhey-vos-gtny angiogram where my catheter was placed at the level of the left popliteal. The procedure was completed without any complication. SELECTIVE PERIPHERAL ANGIOGRAM: 1. The aorta appeared to be angiographically normal. 2. Common Iliac Arteries: The right and left common iliac arteries appeared to be angiographically normal. 3. External Iliac Arteries: Both external iliac arteries are stented and the stents are patent. 4. Internal Iliac Arteries: Both are patent. 5. Common Femoral Arteries: Both appear to have mild to moderate disease only. 6. Profunda: Both profunda are patent. 7. SFA: The right SFA appeared to have mild disease only and the left SFA appeared to be stented and the stent is patent. 8. Popliteal: Both appeared to have intermediate disease only. 9. Below The Knee: On the right side, there are 3 vessels runoff below the knee and on the left side, there are 2 vessel runoff below the knee with posterior tibial and peroneal. CONCLUSION: 1. Patent stents in both external iliac arteries. 2. Patent stent in the left SFA. 3. Intermediate disease involving the left popliteal. 4. Two-vessel runoff below the knee on the left side with posterior tibial and peroneal, anatomy seems to be unchanged compared to before. POSTPROCEDURE MANAGEMENT: 1. Giving the above anatomy, I did recommend maximized medical treatment at this point. I am going to discontinue the heparin at this point. 2. Follow up with the patient. MMODL / IJN: [id number] /
[2019-06-08] MEDS: IPRATROPIUM-ALBUTEROL 3 ML NEB INHALATION PRN (13:08)
[2019-06-08] MEDS ORDERED: HYDROmorphone 1 MG/ML 1 ML SYRINGE IVP PRN (14:01)
[2019-06-08] MEDS ORDERED: traMADol 50 MG TAB PO SCH ×2 (14:30)
[2019-06-08] MEDS: methylPREDNISolone SOD SUCCI 125 MG/2 ML VIAL IV SCH ×2 (14:53→19:46)
[2019-06-08] MEDS: INSULIN ASPART (NovoLOG) 100 UNIT/ML VIAL SQ SCH ×2 (16:40→22:46)
[2019-06-08 16:41] LABS: Glucose,Whole Blood 121 mg/dL (75-99)
--- NOTE | 2019-06-08 16:41 | P.PN ---
Subjective Progress Note Date: 06/08/19 This is a 63-year-old gentleman with medical history of CAD, COPD, DVT, gastroesophageal reflux disease, hypertension, rheumatoid and osteoarthritis, extensive psoriasis, ongoing nicotine dependence and multiple other medical issues, presented to the ER with multiple medical issues including significant l eft ankle cellulitis, COPD.VSS. Maintaining O2 sats in the high 90s on 2 L nasal cannula. Complains of mild increased shortness of breath, chest x-ray ordered .Potassium 5.5. Denies chest pain, palpitations. 06/07/2019 Possible acute ischemic left limb, scheduled for peripheral angiogram today with Dr. Dee. Maintained on Fortaz, vancomycin. Afebrile, normal WBC. Respiratory status stable, at baseline. Denies chest pain, palpitations or increased shortness of breath. Chest x-ray of yesterday reported increased interstitial prominence throughout, possible mild interstitial pulmonary edema or atypical pneumonitis, chronic left hemidiaphragm elevation, left basilar atelectasis. Evaluated by pulmonary with recommendations noted and appreciated. 06/08/2019 angiogram rescheduled for today. No overnight events.VSS. Maintaining O2 sats of 91% on room air. Afebrile, normal WBC. Denies chest pain, palpitations or increased shortness of breath. Pain currently controlled on Dilaudid. Objective - Vital Signs Vital signs: Vital Signs Temp 97.8 F 06/08/19 04:25 Pulse 66 06/08/19 09:27 Resp 18 06/08/19 09:27 BP 151/79 06/08/19 09:27 Pulse Ox 97 06/08/19 09:27 Intake & Output 06/07/19 06/08/19 06/08/19 18:59 06:59 18:59 Intake Total 1241.410 414.323 6.846 Output Total 200 Balance 1241.410 214.323 6.846 Weight 60.328 kg Intake: Intake, IV Titration 161.410 214.323 6.846 Amount Heparin Sod,Pork in 0.45% 161.410 214.323 6.846 NaCl 25,000 unit In 0.45 % NaCl 1 250ml.bag @ 12 UNITS/KG/HR 6.913 mls/hr IV .Q24H [facility]TO Rx#: [id number] Oral 1080 200 Output: Urine 200 Other: Voiding Method Urinal Urinal # Voids 2 1 # Bowel Movements 1 - Exam VITAL SIGNS: As above GENERAL: Sitting up in bed, no acute distress HEENT: Conjunctivae normal. eyes normal. Oral mucosa dry. NECK: No JVD. No thyroid enlargement. No LNs CARDIOVASCULAR: S1, S2 regular. No murmur RESPIRATION: Breath sounds diminished in the bases. No rhonchi, crackles or wheezing this morning. ABDOMEN: Soft, nontender . No guarding. no masses palpable. Bowel sounds heard. LEGS: Dry chronic bilateral lower extremity discoloration, psoriasis, venous stasis. Tender Left foot/ankle edema with dressing clean dry and intact. PSYCHIATRY: Alert and oriented X3, mood and affect normal. NERVOUS SYSTEM: Cranial N 2-12 grossly normal. Moves all 4 limbs. Diffuse weakness No focal deficits. Strength and sensation grossly intact.. - Labs CBC & Chem 7: 06/08/19 04:00 06/07/19 07:21 Labs: Abnormal Lab Results - Last 24 Hours (Table) 06/07/19 06/08/19 Range/Units 21:18 04:00 RBC 2.87 L (4.30-5.90) m/uL Hgb 8.4 L (13.0-17.5) gm/dL Hct 27.6 L (39.0-53.0) % MCHC 30.6 L (31.0-37.0) g/dL RDW 16.9 H (11.5-15.5) % Lymphocytes # 0.6 L (1.0-4.8) k/uL APTT 35.0 H (22.0-30.0) sec Microbiology - Last 24 Hours (Table) 06/04/19 07:10 Blood Culture - Preliminary Blood No Growth after 96 hours 06/07/19 00:01 Gram Stain - Preliminary Ankle - Left Wound Culture - Preliminary 06/07/19 00:01 Anaerobic Culture - Preliminary Ankle - Left Assessment and Plan Assessment: -Nonhealing left foot ulcer, possible cellulitis suspecte acute left limb ischemia, angiogram pending. -Acute left ankle gouty arthritis -Psoriasis -Peripheral vascular disease -COPD, severe, at baseline -Chronic left hemidiaphragm elevation -Atelectasis -Acute hypoxic, hypercapnic respiratory failure secondary to the above -Ongoing nicotine dependence -CAD -Gastroesophageal reflux disease -Rheumatoid and osteoarthritis -Hypertension -History of DVT -Anxiety -Protein calorie malnutrition, BMI 18.8 -Hyperkalemia Plan: Continue on current medication regime ,monitoring and symptomatic treatment. Angiogram pending. Maintain nebulized bronchodilators, steroids,LABA. Continue with antibiotics, skin care as per infectious disease. Smoking cessation reinforced. Antibiotics/skin care as per ID. further recommendations to follow. The impression and plan of care has been dictated as directed. : I performed a history and examination of this patient, discussed the same with the dictator. I agree with the dictator's note ,documented as a scribe. Any additional findings or plans will be noted.
[2019-06-08] MEDS: traMADol 50 MG TAB PO PRN (16:44)
[2019-06-08] MEDS: ATORVASTATIN 40 MG TAB PO SCH (20:15)
[2019-06-08] MEDS: LORazepam 0.5 MG TAB PO PRN (20:15)
[2019-06-08] MEDS ORDERED: FUROSEMIDE 10 MG/ML 2 ML VIAL IV ONE (20:41)
[2019-06-08 21:09] LABS: Glucose,Whole Blood 259 mg/dL (75-99)
--- NOTE | 2019-06-08 21:38 | XR ---
EXAMINATION TYPE: XR chest 1V portable DATE OF EXAM: 06/08/2019 COMPARISON: 06/06/2019 INDICATION: Increased shortness of breath TECHNIQUE: Single frontal view of the chest is obtained. FINDINGS: The heart size is mildly prominent. The pulmonary vasculature is mildly prominent. There is elevation of the lateral left diaphragm. Correlate for atelectasis or scarring. IMPRESSION: 1. Clinical correlation recommended for early congestive heart failure. 2. Some mild left lower lobe atelectasis or scarring may be present.
[2019-06-08] MEDS: hydrOXYzine HCL 25 MG TAB PO SCH (22:39)
[2019-06-09] MEDS: methylPREDNISolone SOD SUCCI 125 MG/2 ML VIAL IV SCH ×5 (01:52→23:30)
[2019-06-09] MEDS: traMADol 50 MG TAB PO PRN ×3 (02:20→19:57)
[2019-06-09] MEDS: LORazepam 0.5 MG TAB PO PRN (05:02)
[2019-06-09 06:29] LABS: Glucose,Whole Blood 203 mg/dL (75-99)
[2019-06-09] MEDS: INSULIN ASPART (NovoLOG) 100 UNIT/ML VIAL SQ SCH ×4 (06:36→21:49)
[2019-06-09 06:57] LABS: Anisocytosis Slight; Basophils % (A) 0 %; Eosinophils % (A) 0 %; HCT 26.5 % (39.0-53.0); HGB 8.2 gm/dL (13.0-17.5); Hypochromasia Moderate; Lymphocytes # (A) 0.3 k/uL (1.0-4.8); Lymphocytes % (A) 6 %; MCH 29.7 pg (25.0-35.0); MCV 95.9 fL (80.0-100.0); Mean Platelet Volume 7.8; Monocytes # (A) 0.1 k/uL (0-1.0); Monocytes % (A) 3 %; Neutrophils # (A) 4.2 k/uL (1.3-7.7); Neutrophils % (A) 90 %; Platelet Count 292 k/uL (150-450); RBC 2.76 m/uL (4.30-5.90); RDW 17.2 % (11.5-15.5); WBC 4.6 k/uL (3.8-10.6)
--- NOTE | 2019-06-09 06:58 | PN ---
PROGRESS NOTE DATE OF SERVICE: 06/08/2019. REASON FOR FOLLOWUP: Left medial ankle wound and cellulitis. INTERVAL HISTORY: The patient is currently afebrile. Patient is status post angiogram today without evidence of significant PAD as per discussion with Dr. Howell. Patient noted to be slightly agitated post procedure and hence did receive some sedation and he was unable to provide any history at time of evaluation. No nausea, vomiting or any diarrhea reported by the nursing staff. PHYSICAL EXAMINATION: On examination, blood pressure 147/82 with a pulse of 103 temperature 98.2. He is 100% on 3 L nasal cannula. General description is an elderly male lying in bed in no distress. RESPIRATORY SYSTEM: Unlabored breathing, clear to auscultation anteriorly. HEART: S1, S2. Regular rate and rhythm. ABDOMEN: Soft, no tenderness. Left ankle wound is currently dressed up, no obvious drainage on the dressing. LABS: No new labs have been obtained today. DIAGNOSTIC IMPRESSION AND PLAN: Patient with left medial ankle wound with secondary cellulitis. Cultures are currently pending. Continue with the Fortaz and vancomycin. Will monitor his kidney function closely and continue with supportive care. MMODL / IJN: [id number] /
[2019-06-09 07:06] LABS: African American GFR (CKD) >90 (>60 ml/min/1.73 sqM); Anion Gap 9 mmol/L; Blood Urea Nitrogen 28 mg/dL (9-20); Calcium 8.6 mg/dL (8.4-10.2); Carbon Dioxide 22 mmol/L (22-30); Chloride 113 mmol/L (98-107); Glucose 163 mg/dL (74-99); Sodium 144 mmol/L (137-145)
[2019-06-09] MEDS: SYMBICORT 160-4.5 MCG INHALER INHALATION SCH (07:51)
[2019-06-09] MEDS: IPRATROPIUM-ALBUTEROL 3 ML NEB INHALATION SCH ×4 (07:51→20:10)
[2019-06-09] MEDS ORDERED: FUROSEMIDE 10 MG/ML 4 ML VIAL IV STA (08:19)
[2019-06-09] MEDS: NICOTINE 21MG/24HR PATCH TRANSDERM SCH (08:39)
[2019-06-09] MEDS: CLOPIDOGREL 75 MG TAB PO SCH (08:39)
[2019-06-09] MEDS: ASPIRIN 81 MG PO SCH (08:40)
[2019-06-09] MEDS: FAMOTIDINE 20 MG TAB PO SCH (08:40)
[2019-06-09] MEDS: CITALOPRAM HYDROBROMIDE 20 MG TAB PO SCH (08:40)
[2019-06-09] MEDS: LISINOPRIL 10 MG TAB PO SCH (08:40)
[2019-06-09] MEDS: LORATADINE 10 MG TAB PO SCH (08:40)
[2019-06-09] MEDS: GABAPENTIN 300 MG CAP PO SCH ×3 (08:40→21:49)
[2019-06-09] MEDS: ALLOPURINOL 300 MG TAB PO SCH (08:40)
[2019-06-09] MEDS: METOPROLOL TARTRATE 25 MG TAB PO SCH ×2 (08:40→19:57)
[2019-06-09] MEDS: COLCHICINE 0.6 MG EACH PO SCH (08:47)
[2019-06-09] MEDS: DONEPEZIL 5 MG TAB PO SCH (08:47)
[2019-06-09] MEDS ORDERED: ADALIMUMAB 40 MG SQ SCH (10:01)
[2019-06-09 11:24] LABS: Glucose,Whole Blood 240 mg/dL (75-99)
--- NOTE | 2019-06-09 11:56 | PN ---
PROGRESS NOTE This is a 63-year-old patient with a history of severe COPD. His FEV1 is 34% of predicted. He is close to having stage IV disease. We saw him in consultation a couple days ago. He was actually admitted with a poorly healing left foot ulcer. We signed off his case because there is nothing active going on with his lungs. He also has a history of hypertension, psoriasis, gout, ongoing tobacco use, previous history of MRSA infection, GERD, history of DVT, CAD, rheumatoid arthritis, and peripheral vascular occlusive disease. Anyway, we were called back by the nurses today because he was having short of breath. We went ahead and put him back on Solu-Medrol 60 mg q.6. We stopped the Symbicort and put him instead on Pulmicort 1 mg mixed with Perforomist 20 mcg. He is already on DuoNeb. His knows that he has got very severe disease. Currently, he appears to have some mild increased work at breathing. Mild conversational dyspnea. No audible wheezing. PHYSICAL EXAMINATION: VITAL SIGNS: Current vital signs include a temperature was 98.2, heart rate 92, respiratory rate 22, blood pressure 145/74, mean 97 and 2 L saturations 100%. GENERAL: Appears mildly dyspneic. HEENT: Examination is grossly unremarkable. Mucous membranes are moist. NECK: Supple. Full range of motion. No adenopathy, thyromegaly or neck vein distention. CARDIOVASCULAR: Examination reveals regular rhythm and rate. Heart rate 90. S1, S2 normal. LUNGS: Reveal mild inspiratory and expiratory rhonchi. There are some expiratory wheezes. No crackles. Breath sounds are diminished throughout. There is prolongation on forced maneuver. ABDOMEN: Soft. Bowel sounds are heard. EXTREMITIES: Are intact. Left lower extremity is wrapped. SKIN: Without rash. NEUROLOGIC: Examination is nonfocal. LABS: Labs are reviewed. White count 4.6, hemoglobin 8.2, hematocrit 26.5, platelet count 292,000. Sodium 144, potassium 5, chloride 113, CO2 of 22, BUN and creatinine were 28 and 0.73. Microbiologic studies are showing evidence of Pseudomonas aeruginosa in his left ankle wound. MEDICATIONS: Medications are reviewed. Again, we stopped the Symbicort and instead placed him on Pulmicort and Perforomist. He is on Fortaz as an antibiotic. He is now back on Solu- Medrol 60 mg q.6. He is also getting vancomycin per Infectious Diseases. He is getting DuoNeb q.i.d. and p.r.n. ASSESSMENT: 1. Left foot ulcer, colonized and infected by Pseudomonas aeruginosa. 2. Severe chronic obstructive pulmonary disease with chronic obstructive pulmonary disease exacerbation in a patient with an FEV1 that is 1.12 L or 34% of predicted. 3. Benign essential hypertension. 4. Psoriasis. 5. History of gout. 6. History of ongoing tobacco dependence. 7. History of methicillin-resistant Staphylococcus aureus infection. 8. Gastroesophageal reflux disease. 9. History of deep venous thrombosis. 10.Coronary artery disease. 11.Rheumatoid arthritis. 12.History of peripheral vascular occlusive disease. PLAN: The patient was placed back on Solu-Medrol 60 mg q.6. We had previously given him 4 doses of Solu-Medrol. We discontinued the Symbicort in favor of Pulmicort 1 mg and Perforomist 20 mcg twice a day. He is getting DuoNeb q.i.d. and p.r.n. Additionally, if not already ordered, chest x-ray will be ordered. His chest x-ray suggests some mild CHF yesterday. There is also some mild left lower lobe atelectasis. We will continue to follow. Prognosis is guarded. MMODL / IJN: [id number] /
--- NOTE | 2019-06-09 14:08 | PN ---
PROGRESS NOTE Mr. Tineo is a 63-year-old male with history of peripheral vascular disease who presented with evidence of cellulitis. Because of his prior history of peripheral vascular disease, he has underwent angiography by Dr. Howell and was found to have patent stenting. He is somnolent. He received sedation. There is no malignant arrhythmia. He has been followed by Dr. Bearden regarding his infectious process. He continues to be at this time on aspirin once a day, Lipitor 40 mg daily, Plavix 75 mg daily, lisinopril 10 mg daily and metoprolol tartrate 25 mg twice a day. PHYSICAL EXAMINATION: Blood pressure 140/60 with a heart rate in the 80s LUNGS: With decreased air exchange, no wheezes. HEART: Regular rate and rhythm, S1, S2. No S3 with a systolic ejection murmur at the base, no diastolic murmur. ABDOMEN: Soft, nontender. No organomegaly. EXTREMITIES: With decreased pulses, with mild tenderness bilaterally. No edema noted. LAB DATA: Revealed BUN and creatinine 28 and 0.73, potassium 5.0. White blood cell of 4.6, hemoglobin of 8.2. IMPRESSION: 1. Cellulitis of lower extremities. 2. Severe chronic obstructive lung disease. 3. Severe peripheral vascular disease with patent stents. 4. History of tobacco use. 5. History of rheumatoid arthritis. 6. History of coronary artery disease with stenting in 2012. RECOMMENDATION: From the cardiac standpoint, will continue present therapy and continue antibiotics per ID. He has no evidence of congestive heart failure at this time. Will see him on as- needed basis, please free feel free to call us for any question. MMODL / IJN: [id number] /
[2019-06-09 14:42] VITALS: BMI 20.2
[2019-06-09 14:53] LABS: Appearance,Urine Clear (Clear); Bilirubin,Urine Negative (Negative); Blood,Urine Negative (Negative); Color,Urine Light Yellow; Glucose,Urine (UA) Negative (Negative); Ketones,Urine Negative (Negative); Leukocyte Esterase,Urine Negative (Negative); Nitrite,Urine Negative (Negative); PH, Urine 5.5 (5.0-8.0); Protein,Urine Trace (Negative); Specific Gravity,Urine 1.011 (1.001-1.035); Urobilinogen,Urine <2.0 mg/dL (<2.0)
--- NOTE | 2019-06-09 15:42 | P.PN ---
Subjective Progress Note Date: 06/09/19 This is a 63-year-old gentleman with medical history of CAD, COPD, DVT, gastroesophageal reflux disease, hypertension, rheumatoid and osteoarthritis, extensive psoriasis, ongoing nicotine dependence and multiple other medical issues, presented to the ER with multiple medical issues including significant l eft ankle cellulitis, COPD.VSS. Maintaining O2 sats in the high 90s on 2 L nasal cannula. Complains of mild increased shortness of breath, chest x-ray ordered .Potassium 5.5. Denies chest pain, palpitations. 06/07/2019 Possible acute ischemic left limb, scheduled for peripheral angiogram today with Dr. Dee. Maintained on Fortaz, vancomycin. Afebrile, normal WBC. Respiratory status stable, at baseline. Denies chest pain, palpitations or increased shortness of breath. Chest x-ray of yesterday reported increased interstitial prominence throughout, possible mild interstitial pulmonary edema or atypical pneumonitis, chronic left hemidiaphragm elevation, left basilar atelectasis. Evaluated by pulmonary with recommendations noted and appreciated. 06/08/2019 angiogram rescheduled for today. No overnight events.VSS. Maintaining O2 sats of 91% on room air. Afebrile, normal WBC. Denies chest pain, palpitations or increased shortness of breath. Pain currently controlled on Dilaudid. 06/09/2019 underwent angiogram yesterday with Dr. Dee with reported patent stenting, maximizing medical management. Continues on IV antibiotics as per infectious disease. During the night patient developed worsening shortness of breath. Chest x-ray reported possible early congestive heart failure with mild left lower lobe atelectasis or scarring. Patient received a dose of Lasix IV p ush. This morning patient having audible rhonchi ,wheezing, no crackles, additional dose of Lasix ordered. Pulmonary reconsulted. Patient had received IV steroids postprocedure yesterday 4 doses. Steroids resumed. Afebrile, normal WBC. Maintaining O2 sats in high 90s on 3 L nasal cannula. Objective - Vital Signs Vital signs: Vital Signs Temp 98.2 F 06/08/19 20:00 Pulse 92 06/09/19 08:07 Resp 22 06/09/19 04:00 BP 145/74 06/09/19 04:00 Pulse Ox 100 06/09/19 07:51 Intake & Output 06/08/19 06/09/19 06/09/19 18:59 06:59 18:59 Intake Total 786.846 Output Total 300 550 Balance 486.846 -550 Weight 62.1 kg Intake: IV 300 Sodium Chloride 0.9% 1, 300 000 ml @ 75 mls/hr IV . [id number] [facility] Rx#:[id number] Intake, IV Titration 6.846 Amount Heparin Sod,Pork in 0.45% 6.846 NaCl 25,000 unit In 0.45 % NaCl 1 250ml.bag @ 12 UNITS/KG/HR 6.913 mls/hr IV .Q24H [facility] Rx#: [id number] Oral 480 Output: Urine 300 550 Other: Voiding Method Urinal Urinal # Voids 1 - Exam VITAL SIGNS: As above GENERAL: Sitting up in bed, no acute distress HEENT: Conjunctivae normal. eyes normal. Oral mucosa dry. NECK: No JVD. No thyroid enlargement. No LNs CARDIOVASCULAR: S1, S2 regular. Systolic murmur RESPIRATION: Breath sounds diminished in the bases. Scattered rhonchi, no crackles, prolonged expiratory wheezing. ABDOMEN: Soft, nontender . No guarding. no masses palpable. Bowel sounds heard. LEGS: Dry chronic bilateral lower extremity discoloration, psoriasis, venous stasis. Tender Left foot/ankle edema with dressing clean dry and intact. Diminished pulses. PSYCHIATRY: Alert and oriented X2, mood and affect normal. NERVOUS SYSTEM: Cranial N 2-12 grossly normal. Moves all 4 limbs. Diffuse weakness No focal deficits. Strength and sensation grossly intact.. - Labs CBC & Chem 7: 06/09/19 06:24 06/09/19 06:24 Labs: Abnormal Lab Results - Last 24 Hours (Table) 06/08/19 06/08/19 06/09/19 Range/Units 16:39 21:08 06:24 RBC 2.76 L (4.30-5.90) m/uL Hgb 8.2 L (13.0-17.5) gm/dL Hct 26.5 L (39.0-53.0) % RDW 17.2 H (11.5-15.5) % Lymphocytes # 0.3 L (1.0-4.8) k/uL Chloride (98-107) mmol/L BUN (9-20) mg/dL Glucose (74-99) mg/dL POC Glucose (mg/dL) 121 H 259 H (75-99) mg/dL 06/09/19 06/09/19 Range/Units 06:24 06:27 RBC (4.30-5.90) m/uL Hgb (13.0-17.5) gm/dL Hct (39.0-53.0) % RDW (11.5-15.5) % Lymphocytes # (1.0-4.8) k/uL Chloride 113 H (98-107) mmol/L BUN 28 H (9-20) mg/dL Glucose 163 H (74-99) mg/dL POC Glucose (mg/dL) 203 H (75-99) mg/dL Microbiology - Last 24 Hours (Table) 06/07/19 00:01 Gram Stain - Final Ankle - Left Wound Culture - Preliminary Pseudomonas aeruginosa 06/04/19 07:10 Blood Culture - Preliminary Blood No Growth after 120 hours Assessment and Plan Assessment: -Nonhealing left foot ulcer, possible cellulitis, status post angiogram reporting patent stents. Pseudomonas aeruginosa colonized. -Acute left ankle gouty arthritis -Psoriasis -Peripheral vascular disease, severe -Acute severe COPD exacerbation, in a patient with severe advanced COPD. -Acute CHF exacerbation, systolic dysfunction EF 20-25% -Left lower lobe atelectasis -Chronic left hemidiaphragm elevation -Atelectasis -Acute hypoxic, hypercapnic respiratory failure secondary to the above -Ongoing nicotine dependence -CAD -Gastroesophageal reflux disease -Rheumatoid and osteoarthritis -Hypertension -History of DVT -Anxiety -Protein calorie malnutrition, BMI 18.8 -Hyperkalemia Plan: Continue on current medication regime ,monitoring and symptomatic treatment. Status post angiography, maximizing medical therapy recommended. Initially had planned for discharge following angiography, patient developed worsening shortness of breath. Maintain nebulized bronchodilators, steroids, Pulmicort, perforomist. Continue with antibiotics, skin care as per infectious disease. Smoking cessation reinforced. The impression and plan of care has been dictated as directed. : I performed a history and examination of this patient, discussed the same with the dictator. I agree with the dictator's note ,documented as a scribe. Any additional findings or plans will be noted.
[2019-06-09 17:08] LABS: Glucose,Whole Blood 137 mg/dL (75-99)
[2019-06-09] MEDS: VANCOMYCIN 1,000 MG in SODIUM CHLORIDE 0.9% 250 ML IVPB SCH (18:30)
[2019-06-09] MEDS: ATORVASTATIN 40 MG TAB PO SCH (19:58)
[2019-06-09] MEDS: BUDESONIDE 1 MG/2 ML NEBU INHALATION SCH (20:10)
[2019-06-09 20:26] LABS: Glucose,Whole Blood 191 mg/dL (75-99)
[2019-06-09] MEDS: FORMOTEROL FUMARATE 20 MCG/2 ML NEBU INHALATION SCH (20:26)
[2019-06-09 21:45] LABS: Glucose,Whole Blood 261 mg/dL (75-99)
[2019-06-09] MEDS: hydrOXYzine HCL 25 MG TAB PO SCH (21:49)
[2019-06-10] MEDS: traMADol 50 MG TAB PO PRN ×3 (02:26→15:06)
[2019-06-10] MEDS ORDERED: VANCOMYCIN TROUGH DUE 1 EACH MISC MISCELLANE ONE (05:00)
--- NOTE | 2019-06-10 05:13 | PN ---
PROGRESS NOTE DATE OF SERVICE: 06/09/2019 REASON FOR FOLLOWUP: Left ankle wound and cellulitis. INTERVAL HISTORY: The patient is currently afebrile. Patient has been breathing comfortably. Denies having any chest pain or cough. No abdominal pain or pain to his left medial ankle wound area. PHYSICAL EXAMINATION: On examination, blood pressure 145/67 with a pulse of 92, temperature 97.4. He is 90% on 3 L nasal cannula. General description is an elderly male lying in bed in no distress. RESPIRATORY SYSTEM: Unlabored breathing, clear to auscultation anteriorly. HEART: S1, S2. Regular rate and rhythm. ABDOMEN: Soft, no tenderness. Left medial ankle wound has decreased in size. Surrounding swelling, redness and redness has improved. LABS: Hemoglobin 8.2, white count 4.6, BUN of 28, creatinine 0.73. Wound culture currently showing Pseudomonas aeruginosa. DIAGNOSTIC IMPRESSION AND PLAN: Patient with left ankle wound with secondary cellulitis. Culture positive for Pseudomonas aeruginosa that is a sensitive pathogen. The patient will continue with Fortaz finishing therapy with oral Cipro. Discontinue the vancomycin. MMODL / IJN: [id number] /
[2019-06-10 06:16] LABS: Glucose,Whole Blood 174 mg/dL (75-99)
[2019-06-10] MEDS: methylPREDNISolone SOD SUCCI 125 MG/2 ML VIAL IV SCH (06:37)
[2019-06-10] MEDS: INSULIN ASPART (NovoLOG) 100 UNIT/ML VIAL SQ SCH ×4 (06:38→20:34)
--- NOTE | 2019-06-10 07:32 | XR ---
EXAMINATION TYPE: XR chest 1V portable DATE OF EXAM: 06/10/2019 Comparison: 06/08/2019 Clinical History: 63-year-old male COPD/CHF Findings: Heart mildly enlarged. Atherosclerotic arterial calcifications. Similar slight elevation of the left hemidiaphragm. Diffuse interstitial prominence persists with patchy left basilar opacity which is sli ghtly improved. Impression: Similar mild cardiomegaly and interstitial changes, possible mild pulmonary vascular congestion. Mild patchy left basilar atelectasis and/or mild infiltrate shows slight improvement.
[2019-06-10] MEDS: BUDESONIDE 1 MG/2 ML NEBU INHALATION SCH ×2 (07:40→20:00)
[2019-06-10] MEDS: IPRATROPIUM-ALBUTEROL 3 ML NEB INHALATION SCH ×4 (07:40→20:00)
[2019-06-10] MEDS: FORMOTEROL FUMARATE 20 MCG/2 ML NEBU INHALATION SCH ×2 (07:40→20:01)
[2019-06-10] MEDS: LORazepam 0.5 MG TAB PO PRN (08:47)
[2019-06-10] MEDS: METOPROLOL TARTRATE 25 MG TAB PO SCH ×2 (08:47→20:34)
[2019-06-10] MEDS: GABAPENTIN 300 MG CAP PO SCH ×3 (08:47→20:34)
[2019-06-10] MEDS: CLOPIDOGREL 75 MG TAB PO SCH (08:48)
[2019-06-10] MEDS: ASPIRIN 81 MG PO SCH (08:48)
[2019-06-10] MEDS: NICOTINE 21MG/24HR PATCH TRANSDERM SCH (08:48)
[2019-06-10] MEDS: LISINOPRIL 10 MG TAB PO SCH (08:48)
[2019-06-10] MEDS: LORATADINE 10 MG TAB PO SCH (08:48)
[2019-06-10] MEDS: FAMOTIDINE 20 MG TAB PO SCH (08:48)
[2019-06-10] MEDS: CITALOPRAM HYDROBROMIDE 20 MG TAB PO SCH (08:49)
[2019-06-10] MEDS: ALLOPURINOL 300 MG TAB PO SCH (08:49)
[2019-06-10] MEDS: COLCHICINE 0.6 MG EACH PO SCH (08:54)
[2019-06-10 11:14] LABS: African American GFR (CKD) >90 (>60 ml/min/1.73 sqM); Anion Gap 9 mmol/L; Blood Urea Nitrogen 30 mg/dL (9-20); Calcium 8.5 mg/dL (8.4-10.2); Carbon Dioxide 21 mmol/L (22-30); Chloride 112 mmol/L (98-107); Glucose 175 mg/dL (74-99); Potassium 4.1 mmol/L (3.5-5.1); Sodium 142 mmol/L (137-145)
[2019-06-10 11:47] LABS: Glucose,Whole Blood 169 mg/dL (75-99)
[2019-06-10] MEDS: FUROSEMIDE 10 MG/ML 4 ML VIAL IV SCH ×2 (12:16→20:34)
[2019-06-10] MEDS: DONEPEZIL 5 MG TAB PO SCH (12:16)
--- NOTE | 2019-06-10 13:36 | P.PN ---
Subjective 61-year-old the vivian gentleman was admitted for left leg cellulitis and ulcer which has a Pseudomonas and 8 and patient is on Cipro for that patient started having shortness of breath does have COPD but not does not appear to be Elevation at this point of time doesn't appear to have some heart failure patient has ejection fraction of 25% patient will be started on Lasix twice a day today and the probably need to be discharged on either 20 or 40 mg daily of Lasix. Patient is presently on 3 L will try to wean off oxygen. His oxygen can be weaned off today patient can be discharged tomorrow on either 20 or 40 mg of Lasix as mentioned above. Patient improved with IV Lasix yesterday. Constitutional: Denied any fatigue denied any fever. Cardio vascular: denied any chest pain, palpitations Gastrointestinal denied any nausea vomiting Pulmonary: As mentioned above Neurologic denied any new focal deficits All inpatient medications were reviewed and appropriate changes in these medications as dictated in the interval history and assessment and plan. Objective - Vital Signs Vital signs: Vital Signs Temp 96.1 F L 06/10/19 08:00 Pulse 94 06/10/19 12:35 Resp 16 06/10/19 11:50 BP 135/63 06/10/19 08:00 Pulse Ox 99 06/10/19 08:00 Intake & Output 06/09/19 06/10/19 06/10/19 18:59 06:59 18:59 Intake Total 1060 960 Output Total 930 352 Balance 1060 -930 608 Weight 62.1 kg 61.9 kg Intake: Intake, IV Titration 100 Amount cefTAZidime 2 gm In 100 Sodium Chloride 0.9% 100 ml @ 100 mls/hr IVPB Q8HR [facility] Rx#:[id number] Oral 960 960 Output: Urine 930 352 Other: Voiding Method Urinal # Voids 2 200 # Bowel Movements 1 - Exam PHYSICAL EXAMINATION: GENERAL: The patient is alert and oriented x3, not in any acute distress. Well developed, well nourished. HEENT: Pupils are round and equally reacting to light. EOMI. No scleral icterus. No conjunctival pallor. Normocephalic, atraumatic. No pharyngeal erythema. No thyromegaly. CARDIOVASCULAR: S1 and S2 present. No murmurs, rubs, or gallops. PULMONARY: Chest is clear to auscultation, no wheezing or crackles. ABDOMEN: Soft, nontender, nondistended, normoactive bowel sounds. No palpable organomegaly. MUSCULOSKELETAL: No joint swelling or deformity. EXTREMITIES: No cyanosis, clubbing, or pedal edema. NEUROLOGICAL: Gross neurological examination did not reveal any focal deficits. SKIN: No rashes. - Labs CBC & Chem 7: 06/09/19 06:24 06/10/19 05:44 Labs: Abnormal Lab Results - Last 24 Hours (Table) 06/09/19 06/09/19 06/09/19 Range/Units 13:40 17:05 20:25 Chloride (98-107) mmol/L Carbon Dioxide (22-30) mmol/L BUN (9-20) mg/dL Creatinine (0.66-1.25) mg/dL Glucose (74-99) mg/dL POC Glucose (mg/dL) 137 H 191 H (75-99) mg/dL Urine Protein Trace H (Negative) 06/09/19 06/10/19 06/10/19 Range/Units 21:43 05:44 06:14 Chloride 112 H (98-107) mmol/L Carbon Dioxide 21 L (22-30) mmol/L BUN 30 H (9-20) mg/dL Creatinine 0.65 L (0.66-1.25) mg/dL Glucose 175 H (74-99) mg/dL POC Glucose (mg/dL) 261 H 174 H (75-99) mg/dL Urine Protein (Negative) 06/10/19 Range/Units 11:38 Chloride (98-107) mmol/L Carbon Dioxide (22-30) mmol/L BUN (9-20) mg/dL Creatinine (0.66-1.25) mg/dL Glucose (74-99) mg/dL POC Glucose (mg/dL) 169 H (75-99) mg/dL Urine Protein (Negative) Microbiology - Last 24 Hours (Table) 06/04/19 07:10 Blood Culture - Final Blood No Growth after 144 hours 06/07/19 00:01 Anaerobic Culture - Preliminary Ankle - Left 06/07/19 00:01 Gram Stain - Final Ankle - Left Wound Culture - Final Pseudomonas aeruginosa Assessment and Plan Plan: -Nonhealing left foot ulcer, possible cellulitis, status post angiogram reportin g patent stents. Pseudomonas aeruginosa, patient is on Cipro -Acute hypoxic respiratory failure mostly secondary to congestive heart failure chronic systolic dysfunction with acute exacerbation patient will be continued and will be given couple more doses of Lasix will not be enough constant probab ly can be discharged on 20 or 40 mg of oral Lasix as mentioned above -Acute left ankle gouty arthritis -Psoriasis -Peripheral vascular disease, severe -Acute severe COPD exacerbation, in a patient with severe advanced COPD. -Left lower lobe atelectasis -Chronic left hemidiaphragm elevation -Atelectasis -Acute hypoxic, hypercapnic respiratory failure secondary to the above -Ongoing nicotine dependence -CAD -Gastroesophageal reflux disease -Rheumatoid and osteoarthritis -Hypertension -History of DVT -Anxiety -Protein calorie malnutrition, BMI 18.8 -Hyperkalemia
[2019-06-10] MEDS ORDERED: LIDOCAINE 1% INJ 10MG/ML (20 ML MDV) ONE (13:58)
--- NOTE | 2019-06-10 14:11 | PN ---
PROGRESS NOTE DATE OF SERVICE: 06/10/2019. REASON FOR FOLLOWUP: Left medial ankle Pseudomonas wound infection. INTERVAL HISTORY: The patient is currently afebrile. Patient has been breathing comfortably. Patient denies having any chest pain or shortness of breath or cough. No nausea, vomiting, no abdominal pain. Pain to the left medial ankle wound area. PHYSICAL EXAMINATION: Blood pressure is 135/63 with a pulse of 73, temperature 96.1, he is 99% on 3 L. General description is an elderly male, up in the bed in no distress. RESPIRATORY SYSTEM: Unlabored breathing, clear to auscultation anteriorly. HEART: S1, S2. Regular rate and rhythm. ABDOMEN: Soft, no tenderness. Left medial ankle wound is currently dressed up, no obvious drainage on the dressing. LABS: BUN of 30, creatinine 0.65. DIAGNOSTIC IMPRESSION AND PLAN: Patient with Pseudomonas left medial ankle wound infection with no evidence of any osteomyelitis. Unfortunately, the patient is on multiple medications and thaddeus with oral Cipro, hence that cannot be used in the outpatient setting. He will get the midline and will get cefepime 2 g every 12 hours for 2 weeks to finish a course of therapy. Prescription was provided to the case liner working on discharge and midline has been ordered. MMODL / IJN: [id number] /
[2019-06-10] MEDS ORDERED: LIDOCAINE 1% INJ 10MG/ML (20 ML MDV) SQ ONE (14:20)
--- NOTE | 2019-06-10 14:22 | P.PN ---
Subjective Progress Note Date: 06/10/19 Principal diagnosis: Poorly healing ulcer, severe COPD On 06/07/2019 patient seen in follow-up on medical surgical floor. His COPD stable, at his baseline, without acute exacerbation, no worsening shortness of breath, lung sounds are diminished, no wheezing, no rhonchi, he is being treated for left lower extremity nonhealing ulcer, current antibiotic is with Fortaz and vancomycin, left lower extremity is swollen, there is 1+ pedal edema, there is a draining wound on his left ankle. There is a possibility of possible acute ischemic left phlegm, and patient has been scheduled for peripheral angiogram by Dr. Dee. Denies any chest pain, or palpitations, no high-grade fevers no chills or rigors. Left lower extremity is still painful. Patient is on aspirin, atorvastatin, Plavix. Nuclear bone scan was done showing delayed increased uptake on both sides of the left ankle joint, which is nonspecific could relate to arthritis, no focal bone destruction was noted and osteomyelitis was thought to be less likely. On 06/10/2019 patient has been seen in follow-up on selective care unit, doing significantly better today from perspective of COPD exacerbation, no dyspnea, minimal wheezing only, no rhonchi, no signs are stable, his mentation is appropriate. Room air pulse ox is 92%, patient is on maintenance dose of IV Lasix 40 mg every 12 hours. Lower extremity edema in the left foot and left ankle is improving. Patient is on ceftazidime for abiotic coverage, vancomycin as been discontinued, ID service is following, wound culture showed pseudomonas aeruginosa, blood culture showed no growth. Chest x-ray showed cardiomegaly and interstitial changes, possibly mild pulmonary vascular congestion. Objective - Vital Signs Vital signs: Vital Signs Temp 96.1 F L 06/10/19 08:00 Pulse 94 06/10/19 12:35 Resp 16 06/10/19 12:00 BP 117/58 06/10/19 12:00 Pulse Ox 92 L 06/10/19 12:00 Intake & Output 06/09/19 06/10/19 06/10/19 18:59 06:59 18:59 Intake Total 1060 960 Output Total 930 352 Balance 1060 -930 608 Weight 62.1 kg 61.9 kg Intake: Intake, IV Titration 100 Amount cefTAZidime 2 gm In 100 Sodium Chloride 0.9% 100 ml @ 100 mls/hr IVPB Q8HR [facility] Rx#:[id number] Oral 960 960 Output: Urine 930 352 Other: Voiding Method Urinal # Voids 2 200 # Bowel Movements 1 - Exam GENERAL EXAM: Alert, pleasant, 63-year-old white male, on room air comfortable in no apparent distress. HEAD: Normocephalic/atraumatic. EYES: Normal reaction of pupils, equal size. Conjunctiva pink, sclera white. NOSE: Clear with pink turbinates. THROAT: No erythema or exudates. NECK: No masses, no JVD, no thyroid enlargement, no adenopathy. CHEST: No chest wall deformity. Symmetrical expansion. LUNGS: Diminished air entry with minimal wheezes, but no rhonchi or dullness. CVS: Regular rate and rhythm, normal S1 and S2, no gallops, no murmurs, no rubs ABDOMEN: Soft, nontender. No hepatosplenomegaly, normal bowel sounds, no guarding or rigidity. EXTREMITIES: No clubbing, left lower ankle edema, and 1+ left pedal edema, with the draining wound on the left foot, tender to touch, with surrounding chronic venous stasis discoloration involving both extremities, no cyanosis, present pulses and upper and lower extremities. MUSCULOSKELETAL: Muscle strength and tone normal. SPINE: No scoliosis or deformity SKIN: No rashes CENTRAL NERVOUS SYSTEM: Alert and oriented -3. No focal deficits, tone is normal in all 4 extremities. PSYCHIATRIC: Alert and oriented -3. Appropriate affect. Intact judgment and insight. - Labs CBC & Chem 7: 06/09/19 06:24 06/10/19 05:44 Labs: Abnormal Lab Results - Last 24 Hours (Table) 06/09/19 06/09/19 06/09/19 Range/Units 13:40 17:05 20:25 Chloride (98-107) mmol/L Carbon Dioxide (22-30) mmol/L BUN (9-20) mg/dL Creatinine (0.66-1.25) mg/dL Glucose (74-99) mg/dL POC Glucose (mg/dL) 137 H 191 H (75-99) mg/dL Urine Protein Trace H (Negative) 06/09/19 06/10/19 06/10/19 Range/Units 21:43 05:44 06:14 Chloride 112 H (98-107) mmol/L Carbon Dioxide 21 L (22-30) mmol/L BUN 30 H (9-20) mg/dL Creatinine 0.65 L (0.66-1.25) mg/dL Glucose 175 H (74-99) mg/dL POC Glucose (mg/dL) 261 H 174 H (75-99) mg/dL Urine Protein (Negative) 06/10/19 Range/Units 11:38 Chloride (98-107) mmol/L Carbon Dioxide (22-30) mmol/L BUN (9-20) mg/dL Creatinine (0.66-1.25) mg/dL Glucose (74-99) mg/dL POC Glucose (mg/dL) 169 H (75-99) mg/dL Urine Protein (Negative) Microbiology - Last 24 Hours (Table) 06/04/19 07:10 Blood Culture - Final Blood No Growth after 144 hours 06/07/19 00:01 Anaerobic Culture - Preliminary Ankle - Left 06/07/19 00:01 Gram Stain - Final Ankle - Left Wound Culture - Final Pseudomonas aeruginosa Assessment and Plan Plan: Assessment: #1. Poorly healing left foot ulcer with the possibilities involving cellulitis, and possibility of acute left limb ischemia, wound cultures positive for p seudomonal infection #2. Severe COPD, with a baseline FEV1 of 1.12 L or 34% of predicted, consistent with stage III COPD, with acute exacerbation #3. Hypertension #4. Psoriasis #5. Gout #6. Ongoing nicotine dependence, #7. History of MRSA infection #8. GERD/reflux #9. History of DVT #10. Coronary artery disease #11. Rheumatoid arthritis #12. History of peripheral vascular disease with previous history of angioplasty Plan: Continue antibiotics per ID service recommendations, continue the IV Lasix, IV steroids have been dropped down to 40 mg twice a day, continue nebulized bronchodilators. Patient has significantly improved in terms of dyspnea and wheezing in the last 24 hours, not requiring any supplemental oxygen, fluid volume status is improving. From pulmonary perspective patient is pretty near his baseline, we will sign off and follow on as-needed basis. I performed a history & physical examination of the patient and discussed their management with my nurse practitioner, Emily Jacome. I reviewed the nurse practitioner's note and agree with the documented findings and plan of care. Lung sounds are positive for diminished breath sounds. The findings and the impression was discussed with the patient. I attest to the documentation by the nurse practitioner. Time with Patient: Less than 30
[2019-06-10 16:57] LABS: Glucose,Whole Blood 139 mg/dL (75-99)
[2019-06-10 20:32] LABS: Glucose,Whole Blood 204 mg/dL (75-99)
[2019-06-10] MEDS: ATORVASTATIN 40 MG TAB PO SCH (20:34)
[2019-06-10] MEDS: methylPREDNISolone SOD SUCCI 40 MG/ML 1 ML VIAL IV SCH (20:34)
[2019-06-10] MEDS: hydrOXYzine HCL 25 MG TAB PO SCH (20:35)
[2019-06-11] MEDS: traMADol 50 MG TAB PO PRN ×2 (00:47→06:36)
[2019-06-11 06:21] LABS: Glucose,Whole Blood 168 mg/dL (75-99)
[2019-06-11 06:29] LABS: African American GFR (CKD) >90 (>60 ml/min/1.73 sqM); Anion Gap 8 mmol/L; Blood Urea Nitrogen 40 mg/dL (9-20); Calcium 8.5 mg/dL (8.4-10.2); Carbon Dioxide 28 mmol/L (22-30); Chloride 106 mmol/L (98-107); Glucose 142 mg/dL (74-99); Potassium 4.3 mmol/L (3.5-5.1); Sodium 142 mmol/L (137-145)
[2019-06-11] MEDS: INSULIN ASPART (NovoLOG) 100 UNIT/ML VIAL SQ SCH ×2 (06:36→12:44)
[2019-06-11] MEDS: FAMOTIDINE 20 MG TAB PO SCH (08:08)
[2019-06-11] MEDS: LORATADINE 10 MG TAB PO SCH (08:08)
[2019-06-11] MEDS: ALLOPURINOL 300 MG TAB PO SCH (08:08)
[2019-06-11] MEDS: METOPROLOL TARTRATE 25 MG TAB PO SCH (08:08)
[2019-06-11] MEDS: CITALOPRAM HYDROBROMIDE 20 MG TAB PO SCH (08:08)
[2019-06-11] MEDS: DONEPEZIL 5 MG TAB PO SCH (08:08)
[2019-06-11] MEDS: NICOTINE 21MG/24HR PATCH TRANSDERM SCH (08:08)
[2019-06-11] MEDS: GABAPENTIN 300 MG CAP PO SCH (08:09)
[2019-06-11] MEDS: ASPIRIN 81 MG PO SCH (08:09)
[2019-06-11] MEDS: LISINOPRIL 10 MG TAB PO SCH (08:09)
[2019-06-11] MEDS: methylPREDNISolone SOD SUCCI 40 MG/ML 1 ML VIAL IV SCH (08:09)
[2019-06-11] MEDS: FUROSEMIDE 10 MG/ML 4 ML VIAL IV SCH (08:09)
[2019-06-11] MEDS: CLOPIDOGREL 75 MG TAB PO SCH (08:09)
[2019-06-11] MEDS: COLCHICINE 0.6 MG EACH PO SCH (08:09)
[2019-06-11 08:25] VITALS: RESP 24
[2019-06-11] MEDS: FORMOTEROL FUMARATE 20 MCG/2 ML NEBU INHALATION SCH (09:36)
[2019-06-11] MEDS: IPRATROPIUM-ALBUTEROL 3 ML NEB INHALATION SCH ×2 (09:36→11:50)
[2019-06-11] MEDS: BUDESONIDE 1 MG/2 ML NEBU INHALATION SCH (09:36)
[2019-06-11 11:43] VITALS: BP 130/69; TEMP 98.1
[2019-06-11 12:01] VITALS: PULSE 89
[2019-06-11 12:10] LABS: Glucose,Whole Blood 127 mg/dL (75-99)
[2019-06-11] MEDS ORDERED: CEFEPIME 2 GM in SODIUM CHLORIDE 0.9% 100 ML IVPB STA (12:58)
--- NOTE | 2019-06-11 15:00 | PN ---
PROGRESS NOTE 06/11/2019 REASON FOR FOLLOWUP: Left ankle wound with secondary cellulitis, Pseudomonas. INTERVAL HISTORY: The patient is currently afebrile. Patient has been breathing comfortably. Pain to the left medial ankle area is currently controlled. No chest pain, shortness of breath or cough. No abdominal pain. No diarrhea. PHYSICAL EXAMINATION: Blood pressure 130/69 with a pulse of 79, T 98.1, he is 98% on room air. General description is an elderly male up in the chair in no distress. Respiratory system: Unlabored breathing. Clear to auscultation anteriorly. Heart S1, S2. Regular rate and rhythm. Left ankle wound is currently dressed up. LABS: BUN of 14, creatinine 0.66. DIAGNOSTIC IMPRESSION AND PLAN: Patient with left ankle wound with secondary cellulitis. Culture with Pseudomonas aeruginosa. The patient has shown overall clinical improvement. He will continue with cefepime 2 g q.12 hours on discharge with weekly monitoring of CBC, BMP; local wound care with Aquacel Silver dressing and follow up at the wound care center next week. Questions and concerns were answered. MMODL / IJN: [id number] /
--- NOTE | 2019-06-12 09:17 | DS ---
DISCHARGE SUMMARY I am covering for Dr. Woodson. FINAL DIAGNOSES: 1. Nonhealing left foot ulcer, possible cellulitis, status post angiogram and reporting patent stents. 2. Pseudomonas aeruginosa. The patient is on Cipro. 3. Acute hypoxic respiratory failure, most recent secondary to congestive heart failure acute exacerbation and acute on chronic systolic dysfunction. 4. Acute left ankle gouty arthritis. 5. Psoriasis. 6. Peripheral vascular disease, severe. 7. Acute severe chronic obstructive pulmonary disease. exacerbation. 8. Left lower lobe atelectasis. 9. Chronic left diaphragmatic elevation. 10.Acute hypoxic hypercarbic respiratory failure from the above. 11.Ongoing nicotine dependence. 12.Coronary artery disease. 13.Gastroesophageal reflux disease. 14.Rheumatoid and osteoarthritis. 15.Hypertension. 16.History of deep vein thrombosis. 17.Anxiety. 18.Protein calorie malnutrition, BMI of 18.6. 19.Hyperkalemia. DISCHARGE DISPOSITION: The patient discharged in stable condition with guarded prognosis. Total time 35 minutes. The patient to follow with Dr. Woodson in the outpatient setting. HISTORY OF PRESENT ILLNESS: This 63-year-old gentleman with a past medical history of multiple medical problems was admitted with nonhealing ulcer. The patient also had multiple other complications as mentioned earlier. The patient was treated in conjunction with Infectious Disease and as well as also Dr. Bermudez. The patient improved significantly. Creatinine is normal at this time. Patient is keen on going home. Discharge cleared by multiple consultants. On exam, vitals are stable. CARDIOVASCULAR: S1, S2. ABDOMEN: Soft. NERVOUS SYSTEM: No focal deficits. DISCHARGE MEDICATIONS: Diet is cardiac diet. Follow up with Dr. David Woodson in 2-3 days. Follow up with Dr. Bermudez and Dr. Howell as recommended. DISCHARGE MEDICATIONS: 1. Aspirin 81 mg p.o. 2. Aricept 5 mg p.o. daily. 3. Celexa 20 mg q.a.m. 4. DuoNeb q.i.d. 5. Flaxseed 1.2 g daily. 6. Humira 40 mg subcu . 7. Hydroxyzine 25 mg q.h.s. 8. Neurontin 300 mg p.o. t.i.d. 9. Pepcid 20 mg q.h.s. 10.Plavix 75 mg q.a.m. 11.Ultram 50 mg b.i.d. 12.Zestril 10 mg q.a.m. 13.Zyloprim 300 mg p.o. daily. 14.Zyrtec 10 mg p.o. 15.Colcrys 0.6 mg p.o. daily. 16.Habitrol 21 daily. 17.Lipitor 40 mg q.h.s. 18.Lopressor 25 mg p.o. b.i.d. 19.Maxipime 2 g IV b.i.d. 20.Prednisone 40 mg daily for 3 days, 30 for 3 days, 20 for 3 days, 10 for 3 days. 21.Albuterol p.r.n. 22.Symbicort 4.5 two puffs b.i.d. 23.Tylenol p.r.n. The patient will be discharged in stable condition with guarded prognosis. MMCAMMIE / SATISH: [id number] /
--- NOTE | 2019-06-14 09:13 | IR ---
PICC LINE PLACEMENT: HISTORY: Infection requiring long-term antibiotic therapy PROCEDURE: Ultrasound and fluoroscopic guidance of PICC line placement. COMPLICATIONS: None ANESTHESIA: 1. 1% Lidocaine locally. FINDINGS/TECHNIQUE: The procedure was explained to the patient. The risks, complications, benefits and alternatives were discussed and any questions were answered. Informed consent was obtained. The patient was placed supine on the fluoroscopic table and prepped and draped in the usual sterile fash ion. Utilizing a 21 gauge needle and sonographic and fluoroscopic guidance, access in the left basi lic vein was achieved and there is placement of a 0.018 guidewire. The vein is patent. A 4-F sheath was placed over the guidewire. The guidewire and dilator were removed and a 4-F. PICC line was plac ed through the sheath with the tip at the level of the SVC. The sheath was removed, the catheter was flushed and sutured into position. The patient was stable throughout the procedure and remained sta ble upon discharge from the Department of Radiology. The vein puncture was patent under ultrasound. A norris scale image was obtained to document patency of the vein punctured. All elements of the maximal barrier technique were utilized. FLUOROSCOPY TIME: 0.1 minute and one image submitted IMPRESSION: Successful PICC line placement under ultrasound and fluoroscopic guidance.
--- NOTE | 2019-06-14 09:14 | IR ---
EXAMINATION TYPE: IR angio abdominal w runoff DATE OF EXAM: 06/08/2019 COMPARISON: NONE HISTORY: Fluoroscopy time. Fluoroscopy was provided to the referring clinician.
== END 2019-06-11 13:55 | disposition home or self-care (01) | DRG 299 ==
LOC: EC 04:56 → 4MS4W 05:34 → OBSVTOIN 06-06 11:04 → 4MS4W 06-07 00:52 → 4SSUR 06-07 00:52 → 4MS4W 06-08 10:34 → 3SCARD 06-08 12:57
PROVIDERS: ADMIT Family Medicine; ATTEND Family Medicine
PROC: B41D1ZZ Fluoroscopy of Aorta and Bilateral Lower Extremity Arteries using Low Osmolar Contrast (ICD-10-PCS; principal; 2019-06-08 10:30)
PROC: 02HV33Z Insertion of Infusion Device into Superior Vena Cava, Percutaneous Approach (ICD-10-PCS; 2019-06-10)
DX: I70.243 Atherosclerosis of native arteries of left leg with ulceration of ankle (principal); I50.23 Acute on chronic systolic (congestive) heart failure; J96.01 Acute respiratory failure with hypoxia; J96.02 Acute respiratory failure with hypercapnia; E43 Unspecified severe protein-calorie malnutrition; L03.116 Cellulitis of left lower limb; J44.1 Chronic obstructive pulmonary disease with (acute) exacerbation; J98.11 Atelectasis; Z68.1 Body mass index [BMI] 19.9 or less, adult; K50.90 Crohn's disease, unspecified, without complications; L03.115 Cellulitis of right lower limb; Z86.14 Personal history of Methicillin resistant Staphylococcus aureus infection; D63.8 Anemia in other chronic diseases classified elsewhere; E87.5 Hyperkalemia; F17.210 Nicotine dependence, cigarettes, uncomplicated; F41.9 Anxiety disorder, unspecified; I11.0 Hypertensive heart disease with heart failure; I25.10 Atherosclerotic heart disease of native coronary artery without angina pectoris; I45.10 Unspecified right bundle-branch block; J98.6 Disorders of diaphragm; K21.9 Gastro-esophageal reflux disease without esophagitis; L40.9 Psoriasis, unspecified; L97.329 Non-pressure chronic ulcer of left ankle with unspecified severity; M06.9 Rheumatoid arthritis, unspecified; M10.072 Idiopathic gout, left ankle and foot; M19.90 Unspecified osteoarthritis, unspecified site; B96.5 Pseudomonas (aeruginosa) (mallei) (pseudomallei) as the cause of diseases classified elsewhere; Z96.642 Presence of left artificial hip joint; Z79.02 Long term (current) use of antithrombotics/antiplatelets; Z79.2 Long term (current) use of antibiotics; Z79.51 Long term (current) use of inhaled steroids; Z79.82 Long term (current) use of aspirin; Z79.899 Other long term (current) drug therapy; Z86.718 Personal history of other venous thrombosis and embolism; Z95.5 Presence of coronary angioplasty implant and graft
CPT/HCPCS: 36247; 36573; 71045; 71046; 75625; 75716; 78315; 80048; 80053; 80202; 81001; 81003; 82550; 83605; 83880; 84550; 85025; 85610; 85652; 85730; 86140; 87040; 87070; 87075; 87077; 87186; 87205; 93005; 94640; 94760; 96365; 96375; 99285

== ENCOUNTER 2019-06-18 22:13 | Emergency (ER) | payer MEDICARE ==
--- NOTE | 2019-06-18 22:41 | ED ---
Extremity Problem HPI - General Chief complaint: Extremity Problem,Nontraumatic Stated complaint: arm bruising/pain Time Seen by Provider: 06/18/19 22:24 Source: patient Mode of arrival: wheelchair Limitations: no limitations - History of Present Illness Initial comments: Patient is a 63-year-old male presenting to the emergency Department with complaints of pain and bruising in his left upper extremity since this morning. Patient has a PICC line in his left arm that was placed 2 weeks ago. Patient states today he started having increased in pain and noticed bruising on his upper arm. Patient is currently receiving antibiotics for a foot infection. Patient has had no complications prior to this with the PICC line. Patient states he is having trouble lifting his arm due to weakness and pain. Patient denies any fever, chills, chest pain, shortness of breath, cough. Patient has no other complaints at this time. Upon arrival to ER, vital signs are stable, afebrile. - Related Data Home Medications Medication Instructions Recorded Confirmed Citalopram Hydrobromide 20 mg PO QAM 04/05/14 06/18/19 [Citalopram HBr] Lisinopril [Zestril] 10 mg PO QAM 09/14/14 06/18/19 Aspirin [Adult Low Dose Aspirin EC] 81 mg PO DAILY 09/17/17 06/18/19 Allopurinol [Zyloprim] 300 mg PO DAILY 09/18/17 06/18/19 Clopidogrel [Plavix] 75 mg PO QAM 09/18/17 06/18/19 Cetirizine HCl [Zyrtec] 10 mg PO DAILY 09/29/18 06/18/19 Donepezil HCl [Aricept] 5 mg PO DAILY 10/06/18 06/18/19 Flaxseed Oil 1200mg 1,200 mg PO DAILY 05/17/19 06/18/19 Gabapentin [Neurontin] 300 mg PO TID 05/17/19 06/18/19 Ipratropium-Albuterol Nebulize 3 ml INHALATION RT-TID 06/18/19 06/18/19 [Duoneb 0.5 mg-3 mg/3 ml Soln] predniSONE See Taper PO DIRECTED 06/18/19 06/18/19 traMADol HCL [traMADol HCL ER] 100 mg PO BID 06/18/19 06/18/19 Previous Rx's Medication Instructions Recorded Albuterol Sulfate [Proair Hfa] 2 puff INHALATION RT-Q6H #1 inhaler 05/19/19 Atorvastatin [Lipitor] 40 mg PO HS #30 tab 05/20/19 Cefepime HCl [Maxipime] 2 gm IV Q12H #28 vial 06/11/19 Colchicine [Colcrys] 0.6 mg PO DAILY #30 each 06/11/19 Metoprolol Tartrate [Lopressor] 25 mg PO BID #60 tab 06/11/19 Allergies Allergy/AdvReac Type Severity Reaction Status Date / Time hydromorphone [From Dilaudid] AdvReac Confusion Verified 06/18/19 23:17 Review of Systems ROS Statement: Those systems with pertinent positive or pertinent negative responses have been documented in the HPI. ROS Other: All systems not noted in ROS Statement are negative. Past Medical History Past Medical History: Coronary Artery Disease (CAD), COPD, Deep Vein Thrombosis (DVT), GERD/Reflux, Hypertension, Osteoarthritis (OA), Rheumatoid Arthritis (RA), Skin Disorder Additional Past Medical History / Comment(s): Multiple dislocations of left total hip, psoriasis, gout, hx of DVT both legs. Back and Hip pain. Current open left ankle wound. History of Any Multi-Drug Resistant Organisms: MRSA Date of last positivie culture/infection: 06/09/17 MDRO Source:: Left Ankle Past Surgical History: Back Surgery, Heart Catheterization With Stent, Joint Replacement, Orthopedic Surgery Additional Past Surgical History / Comment(s): 09/28/17 arthrectomy, balloon angioplasty with stent left SFA, Cardiac catheterization with 4 stents placed - 2012, stents placed in bilateral legs & thinks stents in abd aorta, Back surgery - fusion and anuel in back. Left Hip replacement, cataract eye sx. Left ankle has screws. LAPARASCOPIC SHANTANU FUNDOPLASTY. 10/06/2018 LSFA STENT AND ARTHRECTOMY. Past Anesthesia/Blood Transfusion Reactions: Previous Problems w/ Anesthesia Additional Past Anesthesia/Blood Transfusion Reaction / Comment(s): "HAS CONFUSION AND DISORIENTATION POST ANESTHESIA " on occasion. Date of Last Stent Placement:: 2012 Past Psychological History: No Psychological Hx Reported Smoking Status: Current every day smoker Past Alcohol Use History: None Reported Past Drug Use History: None Reported - Past Family History Mother Family Medical History: No Reported History Additional Family Medical History / Comment(s): Father History Unknown: Yes Family Medical History: Unable to Obtain General Exam - General Exam Comments Initial Comments: GENERAL: Well-appearing and in no acute distress. HEAD: Atraumatic, normocephalic. EYES: Pupils equal round and reactive to light, extraocular movements intact, sclera a nicteric, conjunctiva are normal. ENT: TMs normal, nares patent, oropharynx clear without exudates. Moist mucous membranes. NECK: Normal range of motion, supple without lymphadenopathy or JVD. LUNGS: Breath sounds clear to auscultation bilaterally and equal. No wheezes rales or rhonchi. HEART: Regular rate and rhythm without murmurs, rubs or gallops. ABDOMEN: Soft, nontender, normoactive bowel sounds. No guarding, no rebound. No masses appreciated. : Deferred EXTREMITIES: Normal range of motion, no pitting or edema. No clubbing or cyanosis. NEUROLOGICAL: Cranial nerves II through XII grossly intact. Normal speech, normal gait. PSYCH: Normal mood, normal affect. SKIN: Warm, Dry, normal turgor. There is a PICC line present in the left arm. There is pain surrounding the area as well as up the left upper arm. There is also bruising present along the left bicep area. There is no erythema surrounding the PICC line or on the arm. There is no edema. Limitations: no limitations Course Vital Signs 06/18/19 22:16 Temperature 97.7 F Pulse Rate 69 Respiratory 20 Rate Blood Pressure 138/71 O2 Sat by Pulse 98 Oximetry Medical Decision Making - Medical Decision Making Patient is a 63-year-old male presenting with pain and bruising around his PICC line in his left arm. Patient's PICC line has been in place for approximately 2 weeks and he is currently receiving antibiotics secondary to a foot infection. Patient states the pain and bruising started today. Patient denies any falls or trauma to the arm. Vital signs are stable, afebrile. On exam patient has pain with palpation of his left upper arm as well as bruising around the bicep area. Ultrasound of the left upper extremity reveals no evidence for DVT. Findings were discussed with the patient. It was recommended to apply heat to the upper arm to help with pain. Patient will follow-up with his doctor for possible change in PICC line. Patient is in agreement with this plan of care. Strict return parameters were discussed with the patient and his and they both verbalized understanding. Patient is stable for discharge at this time. Case discussed with Dr. Merino. Disposition Clinical Impression: Left upper arm pain Disposition: HOME SELF-CARE Condition: Stable Instructions (If sedation given, give patient instructions): Arm Pain (ED) Additional Instructions: Please return to the Emergency Department if symptoms worsen or any other concerns. I'll up with for possible PICC line evaluation/change. Is patient prescribed a controlled substance at d/c from ED?: No Referrals: David Woodson DO [Primary Care Provider] - 1-2 days
--- NOTE | 2019-06-18 23:45 | US ---
EXAM: US Duplex Left Upper Extremity Veins CLINICAL HISTORY: Pain TECHNIQUE: Real-time duplex ultrasound scan of the left upper extremity veins integrating B-mode two-dimensional vascular structure, Doppler spectral analysis, color flow Doppler imaging and compression. COMPARISON: None. FINDINGS: Deep veins: No deep venous thrombosis left upper extremity deep venous system. Superficial veins: The left cephalic vein was not visualized. No thrombus in the visualized basilic and cephalic veins. Soft tissues: The soft tissues are grossly unremarkable. IMPRESSION: No deep venous thrombosis left upper extremity deep venous system. Please see above discussion.
[2019-06-19 00:39] VITALS: BP 134/79; PULSE 67; RESP 18; TEMP 98.3
== END 2019-06-19 00:39 | disposition home or self-care (01) ==
LOC: EC 22:13
DX: S40.022A Contusion of left upper arm, initial encounter (principal); L08.9 Local infection of the skin and subcutaneous tissue, unspecified; I25.10 Atherosclerotic heart disease of native coronary artery without angina pectoris; J44.9 Chronic obstructive pulmonary disease, unspecified; I10 Essential (primary) hypertension; M19.90 Unspecified osteoarthritis, unspecified site; M06.9 Rheumatoid arthritis, unspecified; M10.9 Gout, unspecified; L40.9 Psoriasis, unspecified; S91.002A Unspecified open wound, left ankle, initial encounter; F17.200 Nicotine dependence, unspecified, uncomplicated; Z88.5 Allergy status to narcotic agent; Z79.52 Long term (current) use of systemic steroids; Z79.02 Long term (current) use of antithrombotics/antiplatelets; Z79.82 Long term (current) use of aspirin; Z79.891 Long term (current) use of opiate analgesic; Z79.899 Other long term (current) drug therapy; Z86.718 Personal history of other venous thrombosis and embolism; Z95.5 Presence of coronary angioplasty implant and graft; Z95.828 Presence of other vascular implants and grafts; Z98.1 Arthrodesis status; Z96.642 Presence of left artificial hip joint; Z86.14 Personal history of Methicillin resistant Staphylococcus aureus infection; X58.XXXA Exposure to other specified factors, initial encounter
CPT/HCPCS: 99283

== ENCOUNTER 2019-07-19 10:43 | Day surgery (SDC) | payer MEDICARE ==
[2019-07-14 10:15] VITALS: BMI 18.7
[~2019-07-19 10:43] MED LIST changes: +ALPRAZolam 0.25 MG TAB PO PRN; +ALPRAZolam 0.5 MG TAB PO PRN; +ASPIRIN 325 MG TAB PO STA; +ATORVASTATIN 80 MG TAB PO STA; +NITROGLYCERIN SL TABS 0.4 MG TAB SUBLINGUAL PRN
[2019-07-19 11:11] VITALS: TEMP 97.9
[2019-07-19] MEDS ORDERED: LIDOCAINE 1% INJ 10MG/ML (20 ML MDV) ONE (11:24)
[2019-07-19] MEDS ORDERED: VERAPAMIL 2.5 MG/ML 2 ML AMP ONE (11:24)
[2019-07-19] MEDS ORDERED: HEPARIN SODIUM 1,000 UN/ML (10ML VL) ONE (11:24)
[2019-07-19] MEDS: MIDAZOLAM PF (FBP) 2 MG/2 ML VIAL IV ONE ×2 (11:32→11:35)
[2019-07-19] MEDS ORDERED: LIDOCAINE 1% INJ 10MG/ML (20 ML MDV) SQ ONE (11:35)
[2019-07-19] MEDS: VERAPAMIL SYRINGE (5 MG/10 ML) INTRAARTER ONE ×2 (11:37→11:46)
[2019-07-19] MEDS ORDERED: HEPARIN SODIUM 1,000 UN/ML (10ML VL) IV ONE (11:41)
[2019-07-19] MEDS ORDERED: IOPAMIDOL-370 125ML BTL INJ ONE (11:47)
[2019-07-19] MEDS ORDERED: RX INFO: IV CONTRAST WAS GIVEN 1 EACH MISC MISCELLANE PRN (11:52)
[2019-07-19] MEDS ORDERED: SODIUM CHLORIDE 0.9% 1,000 ML IV SCH (12:00)
[2019-07-19] MEDS ORDERED: fentaNYL (PF) 50 MCG/ML 2 ML AMP ONE (12:25)
[2019-07-19] MEDS ORDERED: fentaNYL (PF) 50 MCG/ML 2 ML AMP IVP PRN (12:25)
--- NOTE | 2019-07-19 12:32 | CC ---
CARDIAC CATHETERIZATION REPORT DATE OF SERVICE: July 19, 2019 PERFORMING PHYSICIAN: Hector Howell MD, sr. merchandise planner. PROCEDURE PERFORMED: 1. Selective right and left coronary angiogram. 2. Left heart catheterization. INDICATION: This is a pleasant 63-year-old gentleman with history of peripheral arterial disease as well as history of hypertension and dyslipidemia and smoking, who recently underwent an echocardiogram for shortness of breath and that revealed cardiomyopathy. Because of that, a heart catheterization was advised. APPROACH: Right radial artery. COMPLICATION: None. LEVEL OF SEDATION: Moderate with sedation length of 14 minutes. PROCEDURE DESCRIPTION: After obtaining an informed consent, the patient was brought to the cardiac matlab developer. The right radial artery was cannulated using micropuncture technique, the micropuncture wire passed easily then I placed a 6-[place] sheath in the right radial artery. I gave the patient 2 mg of verapamil IA and 5000 units of heparin IV. Selective right and left coronary angiogram was performed using JR4 and JL3.5 catheters. Left heart catheterization was performed using the JR4 which crossed the aortic valve then I did pullback across the valve. The procedure was completed without any complication. SELECTIVE CORONARY ANGIOGRAM: 1. The right coronary artery is a large caliber vessel and it is a dominant vessel. The RCA is calcified. It does have mild disease in the proximal portion. In the mid and distal portion appeared to be angiographically normal. In the midportion gives rise into acute marginal branch and distally bifurcates into PDA and PLV branches both appeared to be angiographically normal. 2. The left main is calcified with eccentric plaque in the mid shaft of the left main appeared to be in the range of 80% to 90%. It bifurcates into left circumflex and left anterior descending artery. 3. The left circumflex is a large caliber vessel. It is a nondominant vessel. The proximal circumflex has a plaque appeared to be in the range of 50%. The mid circumflex has mild disease only and gives rise into the first and second obtuse marginal branches both appeared to have mild disease only. The circumflex distally appeared to be angiographically normal and becomes small caliber vessel. 4. The LAD: The proximal LAD appeared to have mild disease only. It gives rise into the first diagonal branch, which has mild disease only. The mid LAD appeared to be normal and gives rise into a second diagonal branch, which seems to be normal as well. The LAD distally appeared to be angiographically normal. HEMODYNAMICS: The left ventricular end-diastolic pressure was 12 mmHg without significant gradient across the aortic valve. CONCLUSION: 1. Calcified right and left coronary systems. 2. Severe eccentric plaque involving the mid shaft of the left main appeared to be in the range of 70% to 80%. 3. Normal left ventricular end-diastolic pressure. POSTPROCEDURE MANAGEMENT: 1. We will consult cardiothoracic surgeon for the evaluation of coronary artery bypass grafting. 2. Maximize medical treatment at this point of time. 3. Follow up with the patient. BERENICE / IJN: [id number] /
[2019-07-19] MEDS ORDERED: traMADol 50 MG TAB PO STA (12:36)
[2019-07-19] MEDS ORDERED: GABAPENTIN 300 MG CAP PO STA (12:37)
[2019-07-19] MEDS ORDERED: IPRATROPIUM-ALBUTEROL 3 ML NEB INHALATION STA (12:43)
[2019-07-19 16:58] VITALS: BP 115/57; PULSE 82; RESP 18
--- NOTE | 2019-07-19 18:13 | P.GSCN ---
History of Present Illness Consult date: 07/19/19 Reason for Consult: Coronary artery disease with left main disease Requesting physician: Hector Howell History of present illness: This is a 63-year-old gentleman who is followed by Dr. David Woodson on an outpatient basis. He is a past medical history significant for coronary artery disease with previous stent placement to his circumflex coronary artery in 2012, peripheral vascular disease with previous stent placement to his bilateral iliacs in 2012, hypertension, hyperlipidemia, GERD, history of degenerative joint disease, rheumatoid arthritis, history of MRSA, history of psoriasis, ulceration to his left foot, current chronic tobacco abuse smokes about half a pack per day and COPD. Recently, the patient has had complaints of progressive chronic fatigue and has become more short of breath. He reports that he has been sleeping with 2 pillows at night for the last month. He denies any complaints of chest pain, chest pressure, nausea, vomiting, fever, dizziness or lightheadedness. He was evaluated by Dr. Howell from [facility] and due to his previous history of coronary artery disease he was recommended to undergo an elective heart catheterization. After obtaining consent the patient underwent a left heart catheterization performed by Dr. Howell which demonstrated him to have an 80% stenosis to his left main coronary artery and a 20% stenosis to his right coronary artery. Subsequently due to the findings on his heart catheterization a consult was placed to Dr. Almaz Rodriguez from cardiothoracic surgery for further evaluation and treatment recommendations. Review of Systems A 14 point review of systems was completed and was negative except as mentioned in HPI. Past Medical History Past Medical History: Coronary Artery Disease (CAD), COPD, Deep Vein Thrombosis (DVT), GERD/Reflux, Hyperlipidemia, Hypertension, Memory Impairment, Osteoarthritis (OA), Rheumatoid Arthritis (RA), Skin Disorder, Vascular Disorder Additional Past Medical History / Comment(s): Multiple dislocations of left total hip, psoriasis, gout, hx of DVT both legs. Back and Hip pain. Current open left ankle wound with recent wound culture positive for pseudomonas. History of Any Multi-Drug Resistant Organisms: MRSA Year Discovered:: 06/09/17 MDRO Source:: Left Ankle Past Surgical History: Back Surgery, Heart Catheterization With Stent, Hernia Repair, Joint Replacement, Orthopedic Surgery Additional Past Surgical History / Comment(s): 09/28/17 arthrectomy, balloon angioplasty with stent left SFA, Cardiac catheterization with 4 stents placed - 2012, stents placed in bilateral legs & thinks stents in abd aorta, Back surgery - fusion and anuel in back. Left Hip replacement, cataract eye sx. Left ankle has screws. LAPARASCOPIC SHANTANU FUNDOPLASTY. 10/06/2018 LSFA STENT AND ARTHRECTOMY. Past Anesthesia/Blood Transfusion Reactions: Previous Problems w/ Anesthesia Additional Past Anesthesia/Blood Transfusion Reaction / Comm: "HAS CONFUSION AND DISORIENTATION POST ANESTHESIA " on occasion. Date of Last Stent Placement:: 2012 Past Psychological History: No Psychological Hx Reported Smoking Status: Current every day smoker Past Alcohol Use History: None Reported Past Drug Use History: None Reported - Past Family History Mother Family Medical History: No Reported History Additional Family Medical History / Comment(s): Father History Unknown: Yes Family Medical History: Unable to Obtain Medications and Allergies Home Medications Medication Instructions Recorded Confirmed Type Citalopram Hydrobromide 20 mg PO QAM 04/05/14 07/14/19 History [Citalopram HBr] Lisinopril [Zestril] 10 mg PO QAM 09/14/14 07/19/19 History Aspirin [Adult Low Dose Aspirin EC] 81 mg PO DAILY 09/17/17 07/19/19 History Allopurinol [Zyloprim] 300 mg PO DAILY 09/18/17 07/19/19 History Clopidogrel [Plavix] 75 mg PO QAM 09/18/17 07/19/19 History Cetirizine HCl [Zyrtec] 10 mg PO DAILY 09/29/18 07/19/19 History Donepezil HCl [Aricept] 5 mg PO DAILY 10/06/18 07/19/19 History Flaxseed Oil 1200mg 1,200 mg PO DAILY 05/17/19 07/19/19 History Gabapentin [Neurontin] 300 mg PO TID 05/17/19 07/19/19 History Albuterol Sulfate [Proair Hfa] 2 puff INHALATION RT-Q6H #1 inhaler 05/19/19 07/19/19 Rx Atorvastatin [Lipitor] 40 mg PO HS #30 tab 05/20/19 07/19/19 Rx Colchicine [Colcrys] 0.6 mg PO DAILY #30 each 06/11/19 07/19/19 Rx Metoprolol Tartrate [Lopressor] 25 mg PO BID #60 tab 06/11/19 07/19/19 Rx Ipratropium-Albuterol Nebulize 3 ml INHALATION RT-TID 06/18/19 07/19/19 History [Duoneb 0.5 mg-3 mg/3 ml Soln] traMADol HCL [traMADol HCL ER] 100 mg PO BID 06/18/19 07/19/19 History Allergies Allergy/AdvReac Type Severity Reaction Status Date / Time hydromorphone [From Dilaudid] AdvReac Confusion Verified 07/14/19 09:59 Surgical - Exam Vital Signs Temp Pulse Resp BP Pulse Ox 97.9 F 80 20 120/60 93 L 07/19/19 11:00 07/19/19 11:00 07/19/19 11:00 07/19/19 11:00 07/19/19 11:00 - General no distress, no pain, cachectic, chronically ill - Eyes PERRL, normal ocular movement - ENT normal pinna, normal nares, normal mucosa, no hearing loss, no congestion, poor [place] - Neck Neck is supple, no lymphadenopathy. no masses, no bruits, trachea midline, no venous distension - Respiratory Lung sounds with expiratory wheezes throughout, diminished to his bilateral bases. No rhonchi or crackles appreciated. Respirations are symmetrical and nonlabored. - Cardiovascular Regular rhythm and rate. S1 and S2 present, negative for S3, gallop or murmur. - Abdomen Abdomen is soft, nontender and nondistended. Active bowel sounds present all 4 abdominal quadrants. No guarding or rigidity. No organomegaly appreciated. - Genitourinary Deferred - Rectum Deferred - Integumentary Skin is warm and dry. No clubbing or cyanosis is present. Scattered psoriatic plaques to his bilateral upper and lower extremities abdomen chest and back. Chronic ulceration to his left foot followed in the wound healing Center at [facility]. - Neurologic normal coordination, normal sensation - Musculoskeletal Generalized weakness. Equal strength bilaterally. - Psychiatric oriented to time, oriented to person, oriented to place, speech is normal, memory intact Results - Imaging Comments: Heart catheterization results were reviewed by Dr. Almaz Rodriguez. Assessment and Plan Assessment: 1. Severe eccentric plaque involving the mid shaft of the left main 80% coronary artery disease 2. History of coronary artery disease, previous stent placement to his circumflex coronary artery in 2012 3. Peripheral vascular disease with previous stent placement to his bilateral iliacs in 2012 4. Hypertension 5. Hyperlipidemia 6. GERD 7. History of degenerative joint disease 8. Rheumatoid arthritis 9. Left foot wound with recent wound culture showing Pseudomonas in May 2019 10. Psoriasis 11. Current chronic tobacco abuse 12. COPD Plan: The patient was seen and examined in the extended stay unit at his bedside. His is present at his bedside. His chart and diagnostics were reviewed. He was seen and examined by Dr. Almaz Rodriguez from cardiothoracic surgery. Dr. Rodriguez discussed the cardiac catheterization film findings with the patient and his at length. Dr. Rodriguez discussed treatment options with the patient and his . At this time due to the patient's high risk for infection and limited conduit including his greater saphenous vein, radial artery or bilateral mammary, myocardial revascularization surgery is felt to be almost prohibitive. This was discussed with the patient and his by Dr. Rodriguez and doctors artery also spoke with Dr. Howell at length. Treatment recommendations are to consider high risk stenting with [place] support. Importance of smoking cessation was also discussed with the patient. Thank you Dr. Howell for this consult and please feel free to contact Dr. Saleh for any further questions or recommendations. Time with Patient: Greater than 30
== END 2019-07-19 17:15 | disposition home or self-care (01) ==
LOC: CATHCVL 10:43
PROVIDERS: ATTEND Internal Medicine Interventional Cardiology
DX: I25.10 Atherosclerotic heart disease of native coronary artery without angina pectoris (principal); I42.9 Cardiomyopathy, unspecified; I99.8 Other disorder of circulatory system; I10 Essential (primary) hypertension; I73.9 Peripheral vascular disease, unspecified; K21.9 Gastro-esophageal reflux disease without esophagitis; M06.9 Rheumatoid arthritis, unspecified; E78.2 Mixed hyperlipidemia; F17.210 Nicotine dependence, cigarettes, uncomplicated; J44.9 Chronic obstructive pulmonary disease, unspecified; L40.9 Psoriasis, unspecified; M19.90 Unspecified osteoarthritis, unspecified site; R41.3 Other amnesia; M10.9 Gout, unspecified; Z95.5 Presence of coronary angioplasty implant and graft; Z86.14 Personal history of Methicillin resistant Staphylococcus aureus infection; Z86.718 Personal history of other venous thrombosis and embolism; Z96.642 Presence of left artificial hip joint; Z98.1 Arthrodesis status; Z98.49 Cataract extraction status, unspecified eye; Z98.890 Other specified postprocedural states; Z79.82 Long term (current) use of aspirin; Z79.02 Long term (current) use of antithrombotics/antiplatelets; Z79.891 Long term (current) use of opiate analgesic; Z79.899 Other long term (current) drug therapy; Z88.5 Allergy status to narcotic agent; Z86.19 Personal history of other infectious and parasitic diseases; Z87.39 Personal history of other diseases of the musculoskeletal system and connective tissue
CPT/HCPCS: 94640; 93458; C1769; C1894; J2001; J3010; J1644; Q9967; J2250

== ENCOUNTER 2019-07-30 11:51 | Emergency (ER) | payer MEDICARE ==
[2019-07-30] MEDS ORDERED: ASPIRIN 81 MG PO STA (12:17)
[2019-07-30] MEDS ORDERED: HEPARIN SODIUM,PORCINE 5,000 UNIT/ML 1 ML VIAL IV STA (12:17)
[2019-07-30] MEDS ORDERED: HEPARIN SOD,PORK IN 0.45% NACL 25,000 UNIT in 0.45% NACL 1 250ML.BAG IV SCH (12:30)
--- NOTE | 2019-07-30 12:36 | ED ---
General Adult HPI - General Chief complaint: Chest Pain Stated complaint: chest pain, poss chemical ingestion Time Seen by Provider: 07/30/19 12:09 Source: patient Mode of arrival: wheelchair Limitations: no limitations - History of Present Illness Initial comments: Dictation was produced using [email or web address] dictation software. please excuse any grammatical, word or spelling errors. Chief Complaint: 63-year-old male with coronary artery disease, DVTs thrombosis, hypertension presents with chest pain. History of Present Illness: 63-year-old male presents with chest pain ongoing since earlier this morning. Patient states that the pain is sure like with radiation to the left shoulder. Patient states he feels nauseated. No diaphoresis. Patient states he has a history of coronary artery disease. 11 days ago patient had a cardiac cath showing a 90% left main, 50% plaque in the left circumflex. At that time patient was referred to cardiothoracic surgery for CABG. Patient also has some mild shortness of breath. He has history of COPD. No numbness into the arms or legs. The ROS documented in this emergency department record has been reviewed and confirmed by me. Those systems with pertinent positive or negative responses have been documented in the HPI. All other systems are other negative and/or noncontributory. PHYSICAL EXAM: General Impression: Alert and oriented x3, she distress secondary pain HEENT: Normocephalic atraumatic, extra-ocular movements intact, pupils equal and reactive to light bilaterally, mucous membranes moist. Cardiovascular: Heart regular rate and rhythm, S1&S2 audible, no murmurs, rubs or gallops Chest: Diffuse lung wheezing Abdomen: Bowel sounds present, abdomen soft, non-tender, non-distended, no organomegaly Musculoskeletal: Pulses present and equal in all extremities, no peripheral edema Motor: no focal deficits noted Neurological: CN II-XII grossly intact, no focal motor or sensory deficits noted Skin: Intact with no visualized rashes Psych: Normal affect and mood ED course: 63-year-old male presents with chest pain concerning for acute coronary syndrome. Patient has no history of coronary artery disease. He recently had a cardiac cath showing severe disease. He was referred to cardiac thoracic surgery for coronary artery bypass grafting. As upon arrival shows heart rate 102, rest of vital signs within acceptable limits. Initial EKG showed ST depressions in the lateral leads with possible ST elevations in V1 and V2. Repeat EKG was performed 10 minutes later showing dynamic changes with Q waves in the anterior precordial leads and widening of the QRS. Code STEMI was paged. Patient was given aspirin, patient is given heparin bolus. She was found to have a bed bugs. He was taken to the decontamination room.Abdomen evaluation obtained. Mild leukocytosis of 10.7. Hemoglobin 8.9 which appears to be patient's baseline. Coag panel unremarkable. Patient has mild anion gap acidosis. Magnesium 1.3. Patient given magnesium. Pending troponin level. There was a delay in transfer to cardiac Nuclear Cardiology Technologist because Nuclear Cardiology Technologist was currently occupied. Patient kept in emergency department on athletic monitor. Patient had borderline blood pressures. We will withhold nitroglycerin at this time given borderline blood pressures. Patient case discussed with Dr. Morrison who is willing to accept patient admission. Cardiology on consultation. EKG interpretation: Ventricular rate 94, normal sinus rhythm, [place] interval 114, care is 140, QTc 495. Consistent with ST segment elevation ME - Related Data Home Medications Medication Instructions Recorded Confirmed Citalopram Hydrobromide 20 mg PO QAM 04/05/14 07/30/19 [Citalopram HBr] Aspirin [Adult Low Dose Aspirin EC] 81 mg PO DAILY 09/17/17 07/30/19 Allopurinol [Zyloprim] 300 mg PO DAILY 09/18/17 07/30/19 Clopidogrel [Plavix] 75 mg PO QAM 09/18/17 07/30/19 Cetirizine HCl [Zyrtec] 10 mg PO DAILY 09/29/18 07/30/19 Donepezil HCl [Aricept] 5 mg PO DAILY 10/06/18 07/30/19 Flaxseed Oil 1200mg 1,200 mg PO DAILY 05/17/19 07/30/19 Gabapentin [Neurontin] 300 mg PO TID 05/17/19 07/30/19 Ipratropium-Albuterol Nebulize 3 ml INHALATION RT-TID 06/18/19 07/30/19 [Duoneb 0.5 mg-3 mg/3 ml Soln] traMADol HCL [traMADol HCL ER] 100 mg PO BID 06/18/19 07/30/19 Albuterol Sulfate [Proair Hfa] 2 puff INHALATION RT-Q6H PRN 07/30/19 07/30/19 Lisinopril [Zestril] 5 mg PO DAILY 07/30/19 07/30/19 Metoprolol Tartrate [Lopressor] 50 mg PO BID 07/30/19 07/30/19 Previous Rx's Medication Instructions Recorded Atorvastatin [Lipitor] 40 mg PO HS #30 tab 05/20/19 Colchicine [Colcrys] 0.6 mg PO DAILY #30 each 06/11/19 Allergies Allergy/AdvReac Type Severity Reaction Status Date / Time hydromorphone [From Dilaudid] AdvReac Confusion Verified 07/30/19 13:03 Review of Systems ROS Statement: Those systems with pertinent positive or pertinent negative responses have been documented in the HPI. ROS Other: All systems not noted in ROS Statement are negative. Past Medical History Past Medical History: Coronary Artery Disease (CAD), COPD, Deep Vein Thrombosis (DVT), GERD/Reflux, Hyperlipidemia, Hypertension, Memory Impairment, Osteoarthritis (OA), Rheumatoid Arthritis (RA), Skin Disorder, Vascular Disorder Additional Past Medical History / Comment(s): Multiple dislocations of left total hip, psoriasis, gout, hx of DVT both legs. Back and Hip pain. Current open left ankle wound with recent wound culture positive for pseudomonas. History of Any Multi-Drug Resistant Organisms: MRSA Date of last positivie culture/infection: 06/09/17 MDRO Source:: Left Ankle Past Surgical History: Back Surgery, Heart Catheterization With Stent, Hernia Repair, Joint Replacement, Orthopedic Surgery Additional Past Surgical History / Comment(s): 09/28/17 arthrectomy, balloon angioplasty with stent left SFA, Cardiac catheterization with 4 stents placed - 2012, stents placed in bilateral legs & thinks stents in abd aorta, Back surgery - fusion and anuel in back. Left Hip replacement, cataract eye sx. Left ankle has screws. LAPARASCOPIC SHANTANU FUNDOPLASTY. 10/06/2018 LSFA STENT AND ARTHRECTOMY. Past Anesthesia/Blood Transfusion Reactions: Previous Problems w/ Anesthesia Additional Past Anesthesia/Blood Transfusion Reaction / Comment(s): "HAS CONFUSION AND DISORIENTATION POST ANESTHESIA " on occasion. Date of Last Stent Placement:: 2012 Past Psychological History: No Psychological Hx Reported Smoking Status: Current every day smoker Past Alcohol Use History: None Reported Past Drug Use History: None Reported - Past Family History Mother Family Medical History: No Reported History Additional Family Medical History / Comment(s): Father History Unknown: Yes Family Medical History: Unable to Obtain General Exam Limitations: no limitations Course Vital Signs 07/30/19 07/30/19 07/30/19 11:58 12:40 12:56 Temperature 97.9 F Pulse Rate 102 H 92 92 Respiratory 24 28 H 30 H Rate Blood Pressure 85/58 116/100 102/57 O2 Sat by Pulse 94 L 98 100 Oximetry 07/30/19 07/30/19 13:04 13:10 Temperature Pulse Rate 88 90 Respiratory 26 H 33 H Rate Blood Pressure 103/68 107/58 O2 Sat by Pulse 96 94 L Oximetry Medical Decision Making - Lab Data Result diagrams: 07/30/19 12:30 07/30/19 12:30 Lab Results 07/30/19 07/30/19 07/30/19 Range/Units 12:30 12:30 12:30 WBC 10.7 H (3.8-10.6) k/uL RBC 3.26 L (4.30-5.90) m/uL Hgb 8.9 L (13.0-17.5) gm/dL Hct 30.1 L (39.0-53.0) % MCV 92.2 (80.0-100.0) fL MCH 27.4 (25.0-35.0) pg MCHC 29.7 L (31.0-37.0) g/dL RDW 16.2 H (11.5-15.5) % Plt Count 461 H (150-450) k/uL Neutrophils % 86 % Lymphocytes % 7 % Monocytes % 5 % Eosinophils % 1 % Basophils % 1 % Neutrophils # 9.2 H (1.3-7.7) k/uL Lymphocytes # 0.7 L (1.0-4.8) k/uL Monocytes # 0.5 (0-1.0) k/uL Eosinophils # 0.1 (0-0.7) k/uL Basophils # 0.1 (0-0.2) k/uL Hypochromasia Marked Anisocytosis Slight PT 10.3 (9.0-12.0) sec INR 1.0 (<1.2) APTT 24.9 (22.0-30.0) sec Sodium 137 (137-145) mmol/L Potassium 4.7 (3.5-5.1) mmol/L Chloride 107 (98-107) mmol/L Carbon Dioxide 17 L (22-30) mmol/L Anion Gap 13 mmol/L BUN 17 (9-20) mg/dL Creatinine 0.95 (0.66-1.25) mg/dL Est GFR (CKD-EPI)AfAm >90 (>60 ml/min/1.73 sqM) Est GFR (CKD-EPI)NonAf 84 (>60 ml/min/1.73 sqM) Glucose 130 H (74-99) mg/dL Calcium 8.9 (8.4-10.2) mg/dL Magnesium 1.3 L (1.6-2.3) mg/dL Total Bilirubin 0.4 (0.2-1.3) mg/dL AST 19 (17-59) U/L ALT 13 L (21-72) U/L Alkaline Phosphatase 107 (38-126) U/L Total Protein 6.9 (6.3-8.2) g/dL Albumin 3.3 L (3.5-5.0) g/dL Critical Care Time Critical Care Time: Yes (31) Disposition Clinical Impression: STEMI (ST elevation myocardial infarction) Disposition: ADMITTED IP TO THIS [facility] Condition: Critical Referrals: David Woodson DO [Primary Care Provider] - 1-2 days Decision Time: 13:21
[2019-07-30 12:53] LABS: Anisocytosis Slight; Basophils # (A) 0.1 k/uL (0-0.2); Basophils % (A) 1 %; Eosinophils # (A) 0.1 k/uL (0-0.7); Eosinophils % (A) 1 %; HCT 30.1 % (39.0-53.0); HGB 8.9 gm/dL (13.0-17.5); Hypochromasia Marked; Lymphocytes # (A) 0.7 k/uL (1.0-4.8); Lymphocytes % (A) 7 %; MCH 27.4 pg (25.0-35.0); MCHC 29.7 g/dL (31.0-37.0); MCV 92.2 fL (80.0-100.0); Mean Platelet Volume 6.6; Monocytes # (A) 0.5 k/uL (0-1.0); Monocytes % (A) 5 %; Neutrophils # (A) 9.2 k/uL (1.3-7.7); Neutrophils % (A) 86 %; Platelet Count 461 k/uL (150-450); RBC 3.26 m/uL (4.30-5.90); RDW 16.2 % (11.5-15.5); WBC 10.7 k/uL (3.8-10.6)
[2019-07-30 13:03] LABS: ALT 13 U/L (21-72); AST 19 U/L (17-59); African American GFR (CKD) >90 (>60 ml/min/1.73 sqM); Albumin 3.3 g/dL (3.5-5.0); Alkaline Phosphatase 107 U/L (38-126); Anion Gap 13 mmol/L; Blood Urea Nitrogen 17 mg/dL (9-20); Calcium 8.9 mg/dL (8.4-10.2); Carbon Dioxide 17 mmol/L (22-30); Chloride 107 mmol/L (98-107); Glucose 130 mg/dL (74-99); Magnesium 1.3 mg/dL (1.6-2.3); Potassium 4.7 mmol/L (3.5-5.1); Sodium 137 mmol/L (137-145); Total Bilirubin 0.4 mg/dL (0.2-1.3); Total Protein 6.9 g/dL (6.3-8.2)
[2019-07-30 13:09] LABS: Partial Thromboplastin Time 24.9 sec (22.0-30.0); Prothrombin Time 10.3 sec (9.0-12.0)
[2019-07-30] MEDS ORDERED: NALOXONE 0.4 MG/ML 1 ML VIAL IV PRN (13:22)
[2019-07-30] MEDS ORDERED: NITROGLYCERIN OINT 1 INCH/GM PACKET TOPICAL STA (13:24)
[2019-07-30] MEDS ORDERED: MAGNESIUM SULFATE-D5W PMX 1 GM in DEXTROSE/WATER 1 100ML.BAG IVPB SCH (13:30)
[2019-07-30] MEDS ORDERED: SODIUM CHLORIDE 0.9% 1,000 ML IV SCH (13:30)
--- NOTE | 2019-07-30 13:32 | XR ---
EXAMINATION TYPE: XR chest 1V portable DATE OF EXAM: 07/30/2019 HISTORY: chest pain. REFERENCE: Previous study dated 06/10/2019. FINDINGS: There is chronic blunting of the left CP angle which may represent fluid or pleural thicken ing. There is atelectasis left lung base. The heart is enlarged. There has not been a significant int erval change in the appearance of the chest. IMPRESSION: NO SIGNIFICANT INTERVAL CHANGE IN THE APPEARANCE OF THE CHEST.
[2019-07-30] MEDS ORDERED: NITROGLYCERIN-D5W PMX 50 MG in DEXTROSE/WATER 1 250ML.BAG IV SCH (14:00)
--- NOTE | 2019-07-30 14:14 | P.CRDCN ---
History of Present Illness History of present illness: This is Dr. Maldonado dictating a consult on this patient The patient was interviewed and examined by me IMPRESSION / ASSESSMENT: Acute myocardial infarction, ST depression in V3 to V6 as well his inferior leads, new Chest discomfort started at 3 AM this morning Severe peripheral vascular disease Documented left main disease 80-90% by recent Coronary angiogram Elective left main stenting awaited Hypertension Dyslipidemia Current tobacco use PLAN: Discussed with the patient and family Discussed with Dr. Dr. Good Transferred to [facility] for percutaneous intervention with impeller device, axillary approach versus open heart surgery Discussed with ER physician HPI Patient started experiencing chest discomfort all across the front of the chest since 3 AM Irradiation to the left shoulder no diaphoresis ROS: No fever chills or rigors, no cough, phlegm or expectoration, no nausea, vomiting or diarrhea, no hematuria, dysuria, no musculoskeletal complaints, no strokes or seizures, no skin lesions. EXAMINATION: Blood pressure 112/60 mmHg pulse rate in the 80s respirations 22-24 Very emaciated No JVD Normal heart sounds normal S1 normal S2 no murmurs no gallops no rub Breath sounds are reduced bilaterally no rhonchi no crackles Abdomen is scaphoid Severe trophic changes with ulceration of the lower extremities Only the right femoral pulse is palpable but is febrile Left femoral pulse not palpable REVIEW OF LABS, ECG & MEDICAL DATA White count 10.7, hemoglobin 8.9, platelet count 461,000 Kathy flights normal renal function normal Magnesium 1.3 Troponin 0.855 Past Medical History Past Medical History: Coronary Artery Disease (CAD), COPD, Deep Vein Thrombosis (DVT), GERD/Reflux, Hyperlipidemia, Hypertension, Memory Impairment, Osteoarthritis (OA), Rheumatoid Arthritis (RA), Skin Disorder, Vascular Disorder Additional Past Medical History / Comment(s): Multiple dislocations of left total hip, psoriasis, gout, hx of DVT both legs. Back and Hip pain. Current open left ankle wound with recent wound culture positive for pseudomonas. History of Any Multi-Drug Resistant Organisms: MRSA Date of last positivie culture/infection: 06/09/17 MDRO Source:: Left Ankle Past Surgical History: Back Surgery, Heart Catheterization With Stent, Hernia Repair, Joint Replacement, Orthopedic Surgery Additional Past Surgical History / Comment(s): 09/28/17 arthrectomy, balloon angioplasty with stent left SFA, Cardiac catheterization with 4 stents placed - 2012, stents placed in bilateral legs & thinks stents in abd aorta, Back surgery - fusion and anuel in back. Left Hip replacement, cataract eye sx. Left ankle has screws. LAPARASCOPIC SHANTANU FUNDOPLASTY. 10/06/2018 LSFA STENT AND ARTHRECTOMY. Past Anesthesia/Blood Transfusion Reactions: Previous Problems w/ Anesthesia Additional Past Anesthesia/Blood Transfusion Reaction / Comment(s): "HAS CONFUSION AND DISORIENTATION POST ANESTHESIA " on occasion. Date of Last Stent Placement:: 2012 Past Psychological History: No Psychological Hx Reported Smoking Status: Current every day smoker Past Alcohol Use History: None Reported Past Drug Use History: None Reported - Past Family History Mother Family Medical History: No Reported History Additional Family Medical History / Comment(s): Father History Unknown: Yes Family Medical History: Unable to Obtain Medications and Allergies Home Medications Medication Instructions Recorded Confirmed Type Citalopram Hydrobromide 20 mg PO QAM 04/05/14 07/30/19 History [Citalopram HBr] Aspirin [Adult Low Dose Aspirin EC] 81 mg PO DAILY 09/17/17 07/30/19 History Allopurinol [Zyloprim] 300 mg PO DAILY 09/18/17 07/30/19 History Clopidogrel [Plavix] 75 mg PO QAM 09/18/17 07/30/19 History Cetirizine HCl [Zyrtec] 10 mg PO DAILY 09/29/18 07/30/19 History Donepezil HCl [Aricept] 5 mg PO DAILY 10/06/18 07/30/19 History Flaxseed Oil 1200mg 1,200 mg PO DAILY 05/17/19 07/30/19 History Gabapentin [Neurontin] 300 mg PO TID 05/17/19 07/30/19 History Atorvastatin [Lipitor] 40 mg PO HS #30 tab 05/20/19 07/30/19 Rx Colchicine [Colcrys] 0.6 mg PO DAILY #30 each 06/11/19 07/30/19 Rx Ipratropium-Albuterol Nebulize 3 ml INHALATION RT-TID 06/18/19 07/30/19 History [Duoneb 0.5 mg-3 mg/3 ml Soln] traMADol HCL [traMADol HCL ER] 100 mg PO BID 06/18/19 07/30/19 History Albuterol Sulfate [Proair Hfa] 2 puff INHALATION RT-Q6H PRN 07/30/19 07/30/19 History Lisinopril [Zestril] 5 mg PO DAILY 07/30/19 07/30/19 History Metoprolol Tartrate [Lopressor] 50 mg PO BID 07/30/19 07/30/19 History Allergies Allergy/AdvReac Type Severity Reaction Status Date / Time hydromorphone [From Dilaudid] AdvReac Confusion Verified 07/30/19 13:03 Physical Exam Vitals: Vital Signs Temp Pulse Resp BP Pulse Ox 07/30/19 14:09 89 24 112/60 100 07/30/19 13:38 85 26 H 115/63 100 07/30/19 13:28 86 26 H 108/60 100 07/30/19 13:10 90 33 H 107/58 94 L 07/30/19 13:04 88 26 H 103/68 96 07/30/19 12:56 92 30 H 102/57 100 07/30/19 12:40 92 28 H 116/100 98 07/30/19 11:58 97.9 F 102 H 24 85/58 94 L Intake and Output 07/29/19 07/30/19 07/30/19 22:59 06:59 14:59 Other: Weight 61.689 kg Results 07/30/19 12:30 07/30/19 12:30 Cardiac Enzymes 07/30/19 07/30/19 Range/Units 12:30 12:30 AST 19 (17-59) U/L Troponin I 0.855 H* (0.000-0.034) ng/mL Coagulation 07/30/19 Range/Units 12:30 PT 10.3 (9.0-12.0) sec APTT 24.9 (22.0-30.0) sec CBC 07/30/19 Range/Units 12:30 WBC 10.7 H (3.8-10.6) k/uL RBC 3.26 L (4.30-5.90) m/uL Hgb 8.9 L (13.0-17.5) gm/dL Hct 30.1 L (39.0-53.0) % Plt Count 461 H (150-450) k/uL Comprehensive Metabolic Panel 07/30/19 Range/Units 12:30 Sodium 137 (137-145) mmol/L Potassium 4.7 (3.5-5.1) mmol/L Chloride 107 (98-107) mmol/L Carbon Dioxide 17 L (22-30) mmol/L BUN 17 (9-20) mg/dL Creatinine 0.95 (0.66-1.25) mg/dL Glucose 130 H (74-99) mg/dL Calcium 8.9 (8.4-10.2) mg/dL AST 19 (17-59) U/L ALT 13 L (21-72) U/L Alkaline Phosphatase 107 (38-126) U/L Total Protein 6.9 (6.3-8.2) g/dL Albumin 3.3 L (3.5-5.0) g/dL Current Medications Generic Name Dose Route Start Last Admin Trade Name Freq PRN Reason Stop Dose Admin Heparin Sodium/Sodium Chloride 250 mls @ 7.403 mls/hr 07/30/19 12:30 07/30/19 12:26 25,000 unit/ Sodium Chloride IV 12 units/kg/hr .Q24H JACINTO 7.403 mls/hr Administration Protocol 12 UNITS/KG/HR Magnesium Sulfate/Dextrose 1 100 mls @ 100 mls/hr 07/30/19 13:30 gm/ IV Solution IVPB 07/30/19 15:29 Q1H JACINTO Sodium Chloride 1,000 mls @ 100 mls/hr 07/30/19 13:30 07/30/19 14:03 Saline 0.9% IV 100 mls/hr .Q10H JACINTO Administration Nitroglycerin/Dextrose 50 mg/ 250 mls @ 3 mls/hr 07/30/19 14:00 07/30/19 14: 01 IV Solution IV 10 mcg/min .Q24H JACINTO 3 mls/hr Administration Protocol 10 MCG/MIN Naloxone HCl 0.2 mg 07/30/19 13:22 Narcan IV Q2M PRN Opioid Reversal Intake and Output 07/29/19 07/30/19 07/30/19 22:59 06:59 14:59 Other: Weight 61.689 kg Patient Weight 07/31/19 06:59 Weight 61.689 kg 07/30/19 12:30 07/30/19 12:30
[2019-07-30 16:14] VITALS: BP 108/60; PULSE 89; RESP 18; TEMP 97.6
== END 2019-07-30 16:12 | disposition other institution (70) ==
LOC: EC 11:51 → 2SICU 13:22 → UNDOADMIN 13:22 → EC 16:12
DX: I21.3 ST elevation (STEMI) myocardial infarction of unspecified site (principal); D72.829 Elevated white blood cell count, unspecified; E87.2 Acidosis; I25.10 Atherosclerotic heart disease of native coronary artery without angina pectoris; J44.9 Chronic obstructive pulmonary disease, unspecified; I10 Essential (primary) hypertension; M19.90 Unspecified osteoarthritis, unspecified site; M06.9 Rheumatoid arthritis, unspecified; M10.9 Gout, unspecified; S91.002A Unspecified open wound, left ankle, initial encounter; F17.200 Nicotine dependence, unspecified, uncomplicated; Z88.5 Allergy status to narcotic agent; Z79.02 Long term (current) use of antithrombotics/antiplatelets; Z79.82 Long term (current) use of aspirin; Z79.891 Long term (current) use of opiate analgesic; Z79.899 Other long term (current) drug therapy; Z86.14 Personal history of Methicillin resistant Staphylococcus aureus infection; Z86.718 Personal history of other venous thrombosis and embolism; Z95.5 Presence of coronary angioplasty implant and graft; Z98.1 Arthrodesis status; Z96.642 Presence of left artificial hip joint; Z96.698 Presence of other orthopedic joint implants; X58.XXXA Exposure to other specified factors, initial encounter
CPT/HCPCS: 36415; 93005; 80053; 83735; 84484; 85025; 85610; 85730; 71045; 99291; 96365; 96366 ×3; 96368; 96376; J1644 ×2; J3475

== ENCOUNTER 2019-09-12 17:29 | Inpatient (IN) | payer MEDICARE ==
[2019-09-12] MEDS ORDERED: SODIUM CHLORIDE 0.9% 1,000 ML IV STA ×2 (17:55)
[2019-09-12] MEDS ORDERED: IPRATROPIUM-ALBUTEROL 3 ML NEB INHALATION STA (17:55)
[2019-09-12] MEDS ORDERED: methylPREDNISolone SOD SUCCI 125 MG/2 ML VIAL IV STA (17:55)
--- NOTE | 2019-09-12 17:58 | ED ---
Skin/Abscess/FB HPI - General Chief complaint: Skin/Abscess/Foreign Body Stated complaint: psoriasis problem Time Seen by Provider: 09/12/19 17:44 Source: patient, family, RN notes reviewed, old records reviewed Mode of arrival: wheelchair Limitations: no limitations - History of Present Illness Initial comments: This Patient is a 63-year-old male, presents emergency department today for evaluation for chief complaint of a rash over his entire body. Patient's reports he has history of severe psoriasis. He said managing this with his primary care doctor Dr. Woodson as well as . Patient states ablation on amoxicillin and it did not has diminished of redness of his rash over the past few days. Patient also advised emergency department today with significant shortness of breath. Has history of stage IV COPD. He reports that he does not wear oxygen at home. Upon walking into the exam room he was extremely winded with tripod position. - Related Data Home Medications Medication Instructions Recorded Confirmed Citalopram Hydrobromide 20 mg PO QAM 04/05/14 07/30/19 [Citalopram HBr] Aspirin [Adult Low Dose Aspirin EC] 81 mg PO DAILY 09/17/17 07/30/19 Allopurinol [Zyloprim] 300 mg PO DAILY 09/18/17 07/30/19 Clopidogrel [Plavix] 75 mg PO QAM 09/18/17 07/30/19 Cetirizine HCl [Zyrtec] 10 mg PO DAILY 09/29/18 07/30/19 Donepezil HCl [Aricept] 5 mg PO DAILY 10/06/18 07/30/19 Flaxseed Oil 1200mg 1,200 mg PO DAILY 05/17/19 07/30/19 Gabapentin [Neurontin] 300 mg PO TID 05/17/19 07/30/19 Ipratropium-Albuterol Nebulize 3 ml INHALATION RT-TID 06/18/19 07/30/19 [Duoneb 0.5 mg-3 mg/3 ml Soln] traMADol HCL [traMADol HCL ER] 100 mg PO BID 06/18/19 07/30/19 Albuterol Sulfate [Proair Hfa] 2 puff INHALATION RT-Q6H PRN 07/30/19 07/30/19 Lisinopril [Zestril] 5 mg PO DAILY 07/30/19 07/30/19 Metoprolol Tartrate [Lopressor] 50 mg PO BID 07/30/19 07/30/19 Previous Rx's Medication Instructions Recorded Atorvastatin [Lipitor] 40 mg PO HS #30 tab 05/20/19 Colchicine [Colcrys] 0.6 mg PO DAILY #30 each 06/11/19 Allergies Allergy/AdvReac Type Severity Reaction Status Date / Time hydromorphone [From Dilaudid] AdvReac Confusion Verified 07/30/19 13:03 Review of Systems ROS Statement: Those systems with pertinent positive or pertinent negative responses have been documented in the HPI. ROS Other: All systems not noted in ROS Statement are negative. Past Medical History Past Medical History: Coronary Artery Disease (CAD), COPD, Deep Vein Thrombosis (DVT), GERD/Reflux, Hyperlipidemia, Hypertension, Memory Impairment, Osteoarthritis (OA), Rheumatoid Arthritis (RA), Skin Disorder, Vascular Disorder Additional Past Medical History / Comment(s): Multiple dislocations of left total hip, psoriasis, gout, hx of DVT both legs. Back and Hip pain. Current open left ankle wound with recent wound culture positive for pseudomonas. History of Any Multi-Drug Resistant Organisms: MRSA Date of last positivie culture/infection: 06/09/17 MDRO Source:: Left Ankle Past Surgical History: Back Surgery, Heart Catheterization With Stent, Hernia Repair, Joint Replacement, Orthopedic Surgery Additional Past Surgical History / Comment(s): 09/28/17 arthrectomy, balloon angioplasty with stent left SFA, Cardiac catheterization with 4 stents placed - 2012, stents placed in bilateral legs & thinks stents in abd aorta, Back surgery - fusion and anuel in back. Left Hip replacement, cataract eye sx. Left ankle has screws. LAPARASCOPIC SHANTANU FUNDOPLASTY. 10/06/2018 LSFA STENT AND ARTHRECTOMY. Past Anesthesia/Blood Transfusion Reactions: Previous Problems w/ Anesthesia Additional Past Anesthesia/Blood Transfusion Reaction / Comment(s): "HAS CONFUSION AND DISORIENTATION POST ANESTHESIA " on occasion. Date of Last Stent Placement:: 2012 Past Psychological History: No Psychological Hx Reported Smoking Status: Current every day smoker Past Alcohol Use History: None Reported Past Drug Use History: None Reported - Past Family History Mother Family Medical History: No Reported History Additional Family Medical History / Comment(s): Father History Unknown: Yes Family Medical History: Unable to Obtain General Exam - General Exam Comments Initial Comments: Jose Raul a 63-year-old male, shaking. Limitations: no limitations General appearance: alert, in no apparent distress Head exam: Present: atraumatic, normocephalic, normal inspection Eye exam: Present: normal appearance, PERRL, EOMI. Absent: scleral icterus, conjunctival injection, periorbital swelling ENT exam: Present: normal exam, mucous membranes moist Neck exam: Present: normal inspection. Absent: tenderness, meningismus, lymphadenopathy Respiratory exam: Present: other (retractions). Absent: normal lung sounds bilaterally (Audible wheezing from door.), respiratory distress, wheezes, rales, rhonchi, stridor Cardiovascular Exam: Present: regular rate, normal rhythm, normal heart sounds. Absent: systolic murmur, diastolic murmur, rubs, gallop, clicks GI/Abdominal exam: Present: soft, normal bowel sounds. Absent: distended, tenderness, guarding, rebound, rigid Extremities exam: Present: normal inspection, full ROM, normal capillary refill. Absent: tenderness, pedal edema, joint swelling, calf tenderness Back exam: Present: normal inspection Neurological exam: Present: alert, oriented X3, CN II-XII intact Psychiatric exam: Present: normal affect, normal mood Skin exam: Present: warm, dry, intact, normal color, rash (Patient has sig nificant erythema over entire body. Flaking skin noted over chest legs and back and ears.) Course Vital Signs 09/12/19 09/12/19 09/12/19 17:36 18:12 18:32 Temperature 97.6 F Pulse Rate 92 83 87 Respiratory 18 Rate Blood Pressure 94/54 O2 Sat by Pulse 93 L Oximetry 09/12/19 09/12/19 09/12/19 18:58 19:04 20:54 Temperature Pulse Rate 82 85 Respiratory 26 H 28 H 20 Rate Blood Pressure 134/89 127/56 O2 Sat by Pulse 99 99 Oximetry Medical Decision Making - Medical Decision Making Patient is a 63-year-old male presents emergency department today with complaints of diffuse rash over his entire body, has history of severe psoriasis. Was sent and after consultation his primary care doctor and Dr. Ferrera for concern for worsening redness and pain over his skin. At this time Patient did appear to have some significant shortness of breath upon entering the exam room. Patient was started on oxygen and given DuoNeb treatments. He has significant psoriasis over his body with sloughing of the skin. His doctor was concerned that he would have difficulty timing the stretcher due to his skin cell turnover overproduction. Patient was given multiple blankets. Laboratory was obtained relatively unremarkable. After Patient calmed down EKG was performed with no acute ST changes. Chest x-ray was negative for any acute critical me process but evidence of COPD. Patient will be started on IV Solu- Medrol. Discussed the case with Dr. Frazier him discussed the case with Dr. Woodson. Started the Patient on Kefzol for concern for possible overlying cellulitis from psoriasis. - Lab Data Result diagrams: 09/12/19 18:52 09/12/19 18:52 Lab Results 09/12/19 09/12/19 09/12/19 Range/Units 18:52 18:52 18:52 WBC 10.5 (3.8-10.6) k/uL RBC 3.66 L (4.30-5.90) m/uL Hgb 9.9 L (13.0-17.5) gm/dL Hct 33.9 L (39.0-53.0) % MCV 92.5 (80.0-100.0) fL MCH 27.0 (25.0-35.0) pg MCHC 29.2 L (31.0-37.0) g/dL RDW 19.7 H (11.5-15.5) % Plt Count 477 H (150-450) k/uL Neutrophils % 67 % Lymphocytes % 17 % Monocytes % 5 % Eosinophils % 7 % Basophils % 1 % Neutrophils # 7.1 (1.3-7.7) k/uL Lymphocytes # 1.8 (1.0-4.8) k/uL Monocytes # 0.6 (0-1.0) k/uL Eosinophils # 0.7 (0-0.7) k/uL Basophils # 0.1 (0-0.2) k/uL Hypochromasia Marked Poikilocytosis Slight Anisocytosis Slight Macrocytosis Slight PT 9.4 (9.0-12.0) sec INR 0.9 (<1.2) APTT 25.8 (22.0-30.0) sec VBG pH (7.31-7.41) VBG pCO2 (37-51) mmHg VBG HCO3 (24-28) mmol/L Sodium 142 (137-145) mmol/L Potassium 4.7 (3.5-5.1) mmol/L Chloride 118 H (98-107) mmol/L Carbon Dioxide 12 L (22-30) mmol/L Anion Gap 12 mmol/L BUN 26 H (9-20) mg/dL Creatinine 1.69 H (0.66-1.25) mg/dL Est GFR (CKD-EPI)AfAm 48 (>60 ml/min/1.73 sqM) Est GFR (CKD-EPI)NonAf 42 (>60 ml/min/1.73 sqM) Glucose 84 (74-99) mg/dL Calcium 7.9 L (8.4-10.2) mg/dL Magnesium 1.9 (1.6-2.3) mg/dL Total Bilirubin 0.3 (0.2-1.3) mg/dL AST 20 (17-59) U/L ALT 13 L (21-72) U/L Alkaline Phosphatase 101 (38-126) U/L Troponin I (0.000-0.034) ng/mL Total Protein 6.4 (6.3-8.2) g/dL Albumin 3.0 L (3.5-5.0) g/dL 09/12/19 09/12/19 Range/Units 18:52 20:50 WBC (3.8-10.6) k/uL RBC (4.30-5.90) m/uL Hgb (13.0-17.5) gm/dL Hct (39.0-53.0) % MCV (80.0-100.0) fL MCH (25.0-35.0) pg MCHC (31.0-37.0) g/dL RDW (11.5-15.5) % Plt Count (150-450) k/uL Neutrophils % % Lymphocytes % % Monocytes % % Eosinophils % % Basophils % % Neutrophils # (1.3-7.7) k/uL Lymphocytes # (1.0-4.8) k/uL Monocytes # (0-1.0) k/uL Eosinophils # (0-0.7) k/uL Basophils # (0-0.2) k/uL Hypochromasia Poikilocytosis Anisocytosis Macrocytosis PT (9.0-12.0) sec INR (<1.2) APTT (22.0-30.0) sec VBG pH 7.10 L* (7.31-7.41) VBG pCO2 34 L (37-51) mmHg VBG HCO3 10 L (24-28) mmol/L Sodium (137-145) mmol/L Potassium (3.5-5.1) mmol/L Chloride (98-107) mmol/L Carbon Dioxide (22-30) mmol/L Anion Gap mmol/L BUN (9-20) mg/dL Creatinine (0.66-1.25) mg/dL Est GFR (CKD-EPI)AfAm (>60 ml/min/1.73 sqM) Est GFR (CKD-EPI)NonAf (>60 ml/min/1.73 sqM) Glucose (74-99) mg/dL Calcium (8.4-10.2) mg/dL Magnesium (1.6-2.3) mg/dL Total Bilirubin (0.2-1.3) mg/dL AST (17-59) U/L ALT (21-72) U/L Alkaline Phosphatase (38-126) U/L Troponin I <0.012 (0.000-0.034) ng/mL Total Protein (6.3-8.2) g/dL Albumin (3.5-5.0) g/dL 09/12/19 21:16 EKG performed at 2039 inches sinus rhythm, first-degree AV block. Nonspecific interventricular block. Abnormal EKG. Ventricular rate of 85 beats were minute. Intervals 216 ms. QS ration is 140 ms. QT QTc is 14/497 ms. - Radiology Data Radiology results: report reviewed Chest x-ray shows no acute cardiac primary process. 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 Disposition Clinical Impression: Cellulitis, COPD exacerbation, Psoriasis Disposition: ADMITTED IP TO THIS HOSP Condition: Stable Is patient prescribed a controlled substance at d/c from ED?: No Referrals: David Woodson DO [Primary Care Provider] - 1-2 days Time of Disposition: 21:17
[2019-09-12] MEDS ORDERED: MORPHINE SULFATE 4 MG/ML SYRINGE IVP STA (18:28)
[2019-09-12 19:02] LABS: Anisocytosis Slight; Basophils # (A) 0.1 k/uL (0-0.2); Basophils % (A) 1 %; Eosinophils # (A) 0.7 k/uL (0-0.7); Eosinophils % (A) 7 %; HCT 33.9 % (39.0-53.0); HGB 9.9 gm/dL (13.0-17.5); Hypochromasia Marked; Lymphocytes # (A) 1.8 k/uL (1.0-4.8); Lymphocytes % (A) 17 %; MCHC 29.2 g/dL (31.0-37.0); MCV 92.5 fL (80.0-100.0); Macrocytosis Slight; Mean Platelet Volume 7.1; Monocytes # (A) 0.6 k/uL (0-1.0); Monocytes % (A) 5 %; Neutrophils # (A) 7.1 k/uL (1.3-7.7); Neutrophils % (A) 67 %; Platelet Count 477 k/uL (150-450); Poikilocytosis Slight; RBC 3.66 m/uL (4.30-5.90); RDW 19.7 % (11.5-15.5); WBC 10.5 k/uL (3.8-10.6)
[2019-09-12 19:10] LABS: Calcium 7.9 mg/dL (8.4-10.2); Magnesium 1.9 mg/dL (1.6-2.3); Potassium 4.7 mmol/L (3.5-5.1); Total Bilirubin 0.3 mg/dL (0.2-1.3); Total Protein 6.4 g/dL (6.3-8.2)
[2019-09-12 19:21] LABS: INR 0.9 (<1.2); Partial Thromboplastin Time 25.8 sec (22.0-30.0); Prothrombin Time 9.4 sec (9.0-12.0)
--- NOTE | 2019-09-12 19:22 | XR ---
EXAMINATION TYPE: XR chest 2V DATE OF EXAM: 09/12/2019 COMPARISON: 07/30/2019 HISTORY: Difficulty breathing TECHNIQUE: Frontal and lateral views of the chest are obtained. FINDINGS: Chronic pleural reaction is seen at the left costophrenic angle. Pulmonary per inflation r elates underlying COPD. Cardiomediastinal silhouette is stable. No new focal consolidation, pleural e ffusion or pneumothorax. Mild degenerative change of the thoracic spine and diffuse osseous demineral ization. IMPRESSION: No acute cardiopulmonary process. COPD and chronic pleural reaction at the left lung bas e.
[2019-09-12] MEDS ORDERED: KETOROLAC 30 MG/ML 1 ML VIAL IVP STA (19:49)
[2019-09-12] MEDS ORDERED: ORPHENADRINE 30 MG/ML 2 ML VIAL IVP STA (19:49)
[2019-09-12] MEDS ORDERED: LORazepam 2 MG/ML INJ IV STA (20:13)
[2019-09-12 21:00] LABS: VBG PH 7.1 (7.31-7.41)
[2019-09-12] MEDS: SODIUM CHLORIDE 0.9% 1,000 ML IV SCH (23:10)
[2019-09-12] MEDS: GABAPENTIN 300 MG CAP PO SCH (23:22)
[2019-09-13] MEDS: KETOROLAC 30 MG/ML 1 ML VIAL IVP SCH ×2 (01:07→05:25)
[2019-09-13] MEDS: methylPREDNISolone SOD SUCCI 125 MG/2 ML VIAL IV SCH ×5 (01:09→23:02)
[2019-09-13] MEDS: IPRATROPIUM-ALBUTEROL 3 ML NEB INHALATION PRN ×5 (01:44→15:28)
[2019-09-13] MEDS: LORATADINE 10 MG TAB PO SCH (08:30)
[2019-09-13] MEDS: CITALOPRAM HYDROBROMIDE 20 MG TAB PO SCH (08:31)
[2019-09-13] MEDS: SODIUM CHLORIDE 0.9% 1,000 ML IV SCH (08:31)
[2019-09-13] MEDS: NICOTINE 21MG/24HR PATCH TRANSDERM SCH (08:31)
[2019-09-13] MEDS: ALLOPURINOL 300 MG TAB PO SCH (08:31)
[2019-09-13] MEDS: DONEPEZIL 5 MG TAB PO SCH (08:31)
[2019-09-13] MEDS: GABAPENTIN 300 MG CAP PO SCH ×3 (08:31→21:17)
[2019-09-13] MEDS: LISINOPRIL 5 MG TAB PO SCH (08:31)
[2019-09-13] MEDS ORDERED: METOPROLOL TARTRATE 50 MG TAB PO SCH ×2 (09:00→16:00)
[2019-09-13] MEDS ORDERED: COLCHICINE 0.6 MG EACH PO SCH (09:00)
[2019-09-13] MEDS ORDERED: CLOPIDOGREL 75 MG TAB PO SCH (09:00)
--- NOTE | 2019-09-13 10:07 | P.CNPUL ---
History of Present Illness Consult date: 09/13/19 Requesting physician: Joe Morales Reason for consult: dyspnea, abnormal CXR/CT, other Chief complaint: Dyspnea, severe generalized skin pain and itching History of present illness: This is 63-year-old white male patient with past medical history of advanced COPD and baseline FEV1 of 1.12 liters or 34% of predicted, not on home oxygen normally, history of hypertension, hyperlipidemia, coronary artery disease with previous stenting, peripheral vascular disease with a history of intervention, history of MRSA, and chronic ulceration on his left foot, rheumatoid arthritis, gout, psoriasis, DVT, long history of smoking, and patient states he quit smoking 2 weeks ago. Patient presented to the hospital on with complaints of severe generalized psoriasis, severe pain and itching. He normally sees Dr. Chino, and he has been applying some type of medicated lotion to his skin, with no improvement. In addition patient was having increasing difficulty breathing, which was progressively worse. Denied any fever or chills, his cough is nonproductive. Chest x-ray was completed showing no acute cardiopulmonary process. Showed background of COPD and chronic pleural reaction at the left lung base. Admission labs showed a white blood cell count of 10.5, hemoglobin of 9.9, coagulation profile was within normal limits, sodium is 142, potassium is 4.7, chloride is 118, CO2 was 12, B1 is 26 and creatinine is 1.69, troponin was negative 1, lactic acid was 1.3, venous blood gas showed pH of 7.10, pCO2 34, and bicarb of 10, consistent with acute metabolic acidosis with respiratory compensation. Patient is afebrile, she was placed on supplemental oxygen at 4 L, his pulse ox today is 97%, hemodynamically stable, blood pressures 138/73, sinus mechanism with a rate of 99 BPM with a right bundle branch block pattern. Patient was given a liter bolus in the emergency department, and his maintenance IV fluids are infusing at a rate of 100 ML per hour he was started on IV steroids, breathing treatments and given a dose of IV Kefzol in the emergency department and admitted for further management. Review of Systems All systems: negative Constitutional: Denies chills, Denies fever Eyes: denies blurred vision, denies pain Ears, nose, mouth and throat: Denies headache, Denies sore throat Cardiovascular: Denies chest pain, Denies shortness of breath Respiratory: Reports dyspnea, Denies cough Gastrointestinal: Denies abdominal pain, Denies diarrhea, Denies nausea, Denies vomiting Musculoskeletal: Denies myalgias Integumentary: Reports dryness, Reports lesions, Reports rash, Reports sores, Denies pruritus Neurological: Denies numbness, Denies weakness Psychiatric: Denies anxiety, Denies depression Endocrine: Denies fatigue, Denies weight change Past Medical History Past Medical History: Coronary Artery Disease (CAD), COPD, Deep Vein Thrombosis (DVT), GERD/Reflux, Hyperlipidemia, Hypertension, Memory Impairment, Osteoarthritis (OA), Rheumatoid Arthritis (RA), Skin Disorder, Vascular Disorder Additional Past Medical History / Comment(s): Multiple dislocations of left total hip, psoriasis, gout, hx of DVT both legs. Back and Hip pain. Current open left ankle wound with recent wound culture positive for pseudomonas. History of Any Multi-Drug Resistant Organisms: MRSA Date of last positivie culture/infection: 06/09/17 MDRO Source:: Left Ankle Past Surgical History: Back Surgery, Heart Catheterization With Stent, Hernia Repair, Joint Replacement, Orthopedic Surgery Additional Past Surgical History / Comment(s): 09/28/17 arthrectomy, balloon angioplasty with stent left SFA, Cardiac catheterization with 4 stents placed - 2012, stents placed in bilateral legs & thinks stents in abd aorta, Back surgery - fusion and anuel in back. Left Hip replacement, cataract eye sx. Left ankle has screws. LAPARASCOPIC SHANTANU FUNDOPLASTY. 10/06/2018 LSFA STENT AND ARTHRECTOMY. Past Anesthesia/Blood Transfusion Reactions: Previous Problems w/ Anesthesia Additional Past Anesthesia/Blood Transfusion Reaction / Comment(s): "HAS CONFUSION AND DISORIENTATION POST ANESTHESIA " on occasion. 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 No . No travel as of late. no animals in the home. Active tobacco use no current a lcohol use Smoking Status: Current some day smoker Past Alcohol Use History: None Reported Additional Past Alcohol Use History / Comment(s): Started smoking at age 15- smoked 2 ppd, quit 2010. Started again 2017, less than 1ppd. Past Drug Use History: None Reported - Past Family History Mother Family Medical History: No Reported History Additional Family Medical History / Comment(s): Father History Unknown: Yes Family Medical History: Unable to Obtain Medications and Allergies Home Medications Medication Instructions Recorded Confirmed Type Citalopram Hydrobromide 20 mg PO DAILY 04/05/14 09/12/19 History [Citalopram HBr] Aspirin [Adult Low Dose Aspirin EC] 81 mg PO DAILY 09/17/17 09/12/19 History Allopurinol [Zyloprim] 300 mg PO DAILY 09/18/17 09/12/19 History Cetirizine HCl [Zyrtec] 10 mg PO DAILY 09/29/18 09/12/19 History Donepezil HCl [Aricept] 5 mg PO DAILY 10/06/18 09/12/19 History Gabapentin [Neurontin] 300 mg PO TID 05/17/19 09/12/19 History Ipratropium-Albuterol Nebulize 3 ml INHALATION RT-TID 06/18/19 09/12/19 History [Duoneb 0.5 mg-3 mg/3 ml Soln] Albuterol Sulfate [Proair Hfa] 2 puff INHALATION RT-Q6H PRN 07/30/19 09/12/19 History Atorvastatin Calcium [Lipitor] 80 mg PO DAILY 09/12/19 09/12/19 History Carvedilol [Coreg] 3.125 mg PO BID 09/12/19 09/12/19 History Ferrous Sulfate [Iron] 325 mg PO DAILY 09/12/19 09/12/19 History Fluocinonide/Emollient Base 1 applic TOPICAL BID 09/12/19 09/12/19 History [Fluocinonide-E 0.05% Cream] Furosemide [Lasix] 40 mg PO DAILY 09/12/19 09/12/19 History Lisinopril [Zestril] 10 mg PO DAILY 09/12/19 09/12/19 History Ticagrelor [Brilinta] 90 mg PO BID 09/12/19 09/12/19 History hydrOXYzine HCL 25 mg PO Q6H PRN 09/12/19 09/12/19 History Allergies Allergy/AdvReac Type Severity Reaction Status Date / Time hydromorphone [From Dilaudid] AdvReac Confusion Verified 09/12/19 21:47 Physical Exam Vitals: Vital Signs Temp Pulse Pulse Resp BP BP Pulse Ox 09/13/19 07:49 92 09/13/19 07:30 88 09/13/19 04:02 88 09/13/19 03:53 88 09/13/19 01:54 90 09/13/19 01:44 90 97 09/12/19 22:40 97.9 F 94 19 138/73 97 09/12/19 20:54 85 20 127/56 99 09/12/19 19:04 28 H 09/12/19 18:58 82 26 H 134/89 99 09/12/19 18:32 87 09/12/19 18:12 83 09/12/19 17:36 97.6 F 92 18 94/54 93 L Intake and Output 09/12/19 09/13/19 09/13/19 22:59 06:59 14:59 Intake Total 25 Output Total 400 Balance -375 Intake: Oral 25 Output: Urine 400 Other: Voiding Method Urinal Weight 55.792 kg 55.792 kg GENERAL EXAM: Alert, pleasant, 63-year-old white male, covered with extensive psoriatic lesions including his ears, forehead, neck, shoulders, torso, and lower extremities. Patient called, and he is asking for more blankets, he is f eeling chilled this morning. No signs of acute respiratory distress HEAD: Normocephalic/atraumatic. EYES: Normal reaction of pupils, equal size. Conjunctiva pink, sclera white. NOSE: Clear with pink turbinates. THROAT: No erythema or exudates. NECK: No masses, no JVD, no thyroid enlargement, no adenopathy. CHEST: No chest wall deformity. Symmetrical expansion. LUNGS: Equal air entry with diffuse wheezes, no significant rhonchi or congestion CVS: Regular rate and rhythm, normal S1 and S2, no gallops, no murmurs, no rubs ABDOMEN: Soft, nontender. No hepatosplenomegaly, normal bowel sounds, no guarding or rigidity. EXTREMITIES: No clubbing, no edema, no cyanosis, 2+ pulses and upper and lower extremities. MUSCULOSKELETAL: Muscle strength and tone normal. SPINE: No scoliosis or deformity SKIN: Extensive psoriatic lesions covering the patient's ears, forehead, neck, shoulders, arms, torso and to a greater extent lower extremities. There is a dressing on the left ankle covering a chronic wound CENTRAL NERVOUS SYSTEM: Alert and oriented -3. No focal deficits, tone is normal in all 4 extremities. PSYCHIATRIC: Alert and oriented -3. Appropriate affect. Intact judgment and insight. Results - Laboratory Findings CBC and BMP: 09/12/19 18:52 09/12/19 18:52 PT/INR, D-dimer PT 9.4 sec (9.0-12.0) 09/12/19 18:52 INR 0.9 (<1.2) 09/12/19 18:52 Abnormal lab findings: Abnormal Labs 09/12/19 09/12/19 09/12/19 18:52 18:52 20:50 RBC 3.66 L Hgb 9.9 L Hct 33.9 L MCHC 29.2 L RDW 19.7 H Plt Count 477 H VBG pH 7.10 L* VBG pCO2 34 L VBG HCO3 10 L Chloride 118 H Carbon Dioxide 12 L BUN 26 H Creatinine 1.69 H Calcium 7.9 L ALT 13 L Albumin 3.0 L - Diagnostic Findings Chest x-ray: report reviewed, image reviewed Additional studies: EKG reviewed Assessment and Plan Plan: Assessment: #1. Severe pain and itching related to exacerbation of psoriasis. Patient presented to the hospital with extensive psoriatic lesions covering his whole body #2. Acute COPD exacerbation, likely related to acute metabolic acidosis #3. Non-anion gap metabolic acidosis related to acute kidney injury and dehydration #4. Chronic anemia unspecified #5. History of advanced COPD not oxygen dependent, with baseline FEV1 of 1.12 L or 34% of predicted consistent with GOLD stage III COPD #6. History of 50 years of smoking, 1-2 packs a day, in remission for last 2 weeks #7. Coronary artery disease with previous stenting #8. Severe peripheral vascular disease with previous stenting and bilateral iliacs in 2013 #9. Hypertension #10. Hyperlipidemia #11. GERD/reflux #12. Hx rheumatoid arthritis and gout #13. History of MRSA infection #14. History of psoriasis Plan: Continue IV hydration, we will recheck this morning's labs, CBC and BMP, continue with IV steroids, patient has a diffuse wheezing but no signs of acute respiratory distress, hemodynamically patient is stable, no significant cough or congestion. We will hold Toradol in view of patient's acute kidney injury. Continue with morphine for pain control. Continue nicotine patch. We will add Pulmicort and Perforomist. Chest X-ray reviewed showing no acute cardiopulmona ry process. We'll continue to follow I performed a history & physical examination of the patient and discussed their management with my nurse practitioner, Emily Jacome. I reviewed the nurse practitioner's note and agree with the documented findings and plan of care. Lung sounds are positive for diffuse wheezes throughout the lung castro. The findings and the impression was discussed with the patient. I attest to the documentation by the nurse practitioner. Time with Patient: Greater than 30
[2019-09-13] MEDS: MORPHINE SULFATE 4 MG/ML SYRINGE IVP PRN ×2 (11:56→20:02)
[2019-09-13 12:01] LABS: Anisocytosis Slight; HCT 29.5 % (39.0-53.0); HGB 8.9 gm/dL (13.0-17.5); Hypochromasia Marked; MCH 28.2 pg (25.0-35.0); MCHC 30.3 g/dL (31.0-37.0); MCV 92.9 fL (80.0-100.0); Macrocytosis Slight; Mean Platelet Volume 5.7; Platelet Count 413 k/uL (150-450); Poikilocytosis Slight; RBC 3.18 m/uL (4.30-5.90); RDW 19.6 % (11.5-15.5); WBC 6.8 k/uL (3.8-10.6)
[2019-09-13 12:13] LABS: Calcium 8.4 mg/dL (8.4-10.2); Magnesium 1.7 mg/dL (1.6-2.3); Potassium 4.3 mmol/L (3.5-5.1)
--- NOTE | 2019-09-13 12:17 | ECHOF ---
Referral Reason:vt MEASUREMENTS -------- HEIGHT: 175.3 cm WEIGHT: 55.8 kg BP: 138/73 IVSd: 1.1 cm (0.6 - 1.1) LVIDd: 4.8 cm (3.9 - 5.3) LVPWd: 1.3 cm (0.6 - 1.1) IVSs: 1.4 cm LVIDs: 4.5 cm LVPWs: 1.3 cm LA Diam: 4.4 cm (2.7 - 3.8) LAESV Index (A-L): 27.09 ml/m Ao Diam: 3.0 cm (2.0 - 3.7) LA Diam: 3.6 cm (2.7 - 3.8) MV EXCURSION: 22.907 mm (> 18.000) MV EF SLOPE: 110 mm/s (70 - 150) EPSS: 3.0 cm MV E Kaleb: 0.47 m/s MV DecT: 232 ms MV A Kaleb: 0.87 m/s MV E/A Ratio: 0.54 RAP: 5.00 mmHg RVSP: 34.50 mmHg FINDINGS -------- Sinus rhythm. This was a technically good study. The left ventricular size is normal. Left ventricular wall thickness is normal. Overall left vent ricular systolic function is moderate-severely impaired with, an EF between 30 - 35 %. The right ventricle is normal in size. The left atrium is mildly dilated. LA is midly dilated 29-33ml/m2. The right atrial size is normal. There is mild aortic valve sclerosis. There is no evidence of aortic regurgitation. Mild mitral annular calcification present. Mild mitral regurgitation is present. Mild tricuspid regurgitation present. Right ventricular systolic pressure is normal at < 35 mmHg. There is no evidence of pulmonary hypertension. There is no pulmonic regurgitation present. The aortic root size is normal. There is no pericardial effusion. CONCLUSIONS -------- 1. Sinus rhythm. 2. This was a technically good study. 3. The left ventricular size is normal. 4. Left ventricular wall thickness is normal. 5. Overall left ventricular systolic function is moderate-severely impaired with, an EF between 30 - 35 %. 6. The right ventricle is normal in size. 7. The left atrium is mildly dilated. 8. LA is midly dilated 29-33ml/m2. 9. The right atrial size is normal. 10. There is mild aortic valve sclerosis. 11. Mild mitral annular calcification present. 12. Mild mitral regurgitation is present. 13. Mild tricuspid regurgitation present. 14. Right ventricular systolic pressure is normal at < 35 mmHg. 15. There is no evidence of pulmonary hypertension. 16. There is no pulmonic regurgitation present. 17. The aortic root size is normal. 18. There is no pericardial effusion. PHARMACY MESSENGER: Daisy Ochoa RDCS
--- NOTE | 2019-09-13 15:10 | P.CRDCN ---
History of Present Illness History of present illness: HISTORY OF PRESENTING ILLNESS This is a pleasant 63-year-old male past medical history significant for coronary artery disease s/p recent PCI to the left main at [facility] July 2019, severe peripheral vascular disease s/p multiple angioplasties of the left leg, hypertension, dyslipidemia, chronic systolic heart failure, psoriasis and ischemic cardiomyopathy. He presented with rash and itching all over. He follows in the office with [facility]. We have been asked to see him in co nsultation for a run of ventricular tachycardia. He is seen and examined laying flat in bed with family in the room in no acute distress. He states earlier this morning around 0930 he felt a pain in his chest in the left precordial region described as a pressure that lasted for around 2-3 minutes. There was no radiation to the arm, back, neck or jaw. He was coughing at the time. He is short of breath throughout conversation but denies any worsening shortness of breath. Denies palpitations, dizziness or syncope. DIAGNOSTICS EKG reveals sinus mechanism with some nonspecific interviewing jugular conduction block. Chest xray for an acute cardiopulmonary process with underlying COPD and chronic pleural reaction. Laboratory reviewed, WBC 6.8, hemoglobin 8.9, platelets 413, pH 7.1, sodium 143, potassium 4.3, creatinine 1.12, magnesium 1.7, cardiac enzymes negative 2. Current cardiac medications include aspirin 81 mg daily, atorvastatin 80 mg daily, carvedilol 3.125 mg twice a day, Lasix 40 mg daily, lisinopril 10 mg daily and Brillinta 90 mg twice a day. Home meds are not verified, we will follow up with the patient and pharmacy regarding his actual home meds. Repeat echocardiogram today reveals impaired LV systolic function with ejection fraction 30-35%, mild MR and mild TR. REVIEW OF SYSTEMS At the time of my exam: CONSTITUTIONAL: Denies fever or chills. Complains of rash and itching all over. CARDIOVASCULAR: Denies chest pain, shortness of breath, orthopnea, PND or palpitations. RESPIRATORY: Complains of cough. GASTROINTESTINAL: Denies abdominal pain, diarrhea, constipation, nausea or vomiting. MUSCULOSKELETAL: Denies myalgias. NEUROLOGIC: Denies numbness, tingling or weakness. ENDOCRINE: Denies fatigue, weight change, polydipsia or polyurina. GENITOURINARY: Denies burning, hematuria or urgency with micturation. HEMATOLOGIC: Denies history of anemia or bleeding. PHYSICAL EXAMINATION Blood pressure blood pressure 138/73 heart rate 94 afebrile maintaining oxygen saturation on nasal cannula. CONSTITUTIONAL: No apparent distress. Dry flaking skin throughout all visualized areas of the skin. HEENT: Head is normocephalic. Pupils are equal, round. Sclerae anicteric. Mucous membranes of the mouth are moist. No JVD. No carotid bruit. CHEST EXAMINATION: Faint expiratory wheezes, no rales or rhonchi. No chest wall tenderness is noted on palpation or with deep breathing. HEART EXAMINATION: Regular rate and rhythm. S1, S2 heard. No murmurs, gallops or rub. ABDOMEN: Soft, nontender. Positive bowel sounds. EXTREMITIES: 2+ peripheral pulses, no lower extremity edema and no calf tenderness. NEUROLOGIC EXAMINATION: Patient is awake, alert and oriented x3. ASSESSMENT Non-sustained wide complex tachycardia COPD Chronic systolic heart failure, currently euvolemic Ischemic cardiomyopathy, EF 30-35% Recent acute myocardial infarction s/p impella assisted PCI to the left main, maintained on dual anti-platelet therapy Hypertension Dyslipidemia Severe peripheral vascular disease Chronic nicotine dependence PLAN Home meds were verified with the per the discharge instructions from [facility]. Resume brillinta 90 mg daily and discontinue plavix. Increase coreg to 6.25 mg BID and atorvastatin to 80 mg daily. Lisinopril will stay at 5 mg for now as we have increased the coreg. Continue close monitoring on telemetry. Thank you kindly for this consultation. Nurse Practitioner note has been reviewed, I agree with a documented findings and plan of care. Patient was seen and examined. Past Medical History Past Medical History: Coronary Artery Disease (CAD), COPD, Deep Vein Thrombosis (DVT), GERD/Reflux, Hyperlipidemia, Hypertension, Memory Impairment, Osteoarthritis (OA), Rheumatoid Arthritis (RA), Skin Disorder, Vascular Disorder Additional Past Medical History / Comment(s): Multiple dislocations of left total hip, psoriasis, gout, hx of DVT both legs. Back and Hip pain. Current open left ankle wound with recent wound culture positive for pseudomonas. History of Any Multi-Drug Resistant Organisms: MRSA Date of last positivie culture/infection: 06/09/17 MDRO Source:: Left Ankle Past Surgical History: Back Surgery, Heart Catheterization With Stent, Hernia Repair, Joint Replacement, Orthopedic Surgery Additional Past Surgical History / Comment(s): 09/28/17 arthrectomy, balloon angioplasty with stent left SFA, Cardiac catheterization with 4 stents placed - 2012, stents placed in bilateral legs & thinks stents in abd aorta, Back surgery - fusion and anuel in back. Left Hip replacement, cataract eye sx. Left ankle has screws. LAPARASCOPIC SHANTANU FUNDOPLASTY. 10/06/2018 LSFA STENT AND ARTHRECTOMY. Past Anesthesia/Blood Transfusion Reactions: Previous Problems w/ Anesthesia Additional Past Anesthesia/Blood Transfusion Reaction / Comment(s): "HAS CONFUSION AND DISORIENTATION POST ANESTHESIA " on occasion. 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 No travel as of late. no animals in the home. Active tobacco use no current alcohol use Smoking Status: Current some day smoker Past Alcohol Use History: None Reported Additional Past Alcohol Use History / Comment(s): Started smoking at age 15- smoked 2 ppd, quit 2010. Started again 2016, less than 1ppd. Past Drug Use History: None Reported - Past Family History Mother Family Medical History: No Reported History Additional Family Medical History / Comment(s): Father History Unknown: Yes Family Medical History: Unable to Obtain Medications and Allergies Home Medications Medication Instructions Recorded Confirmed Type Citalopram Hydrobromide 20 mg PO DAILY 04/05/14 09/12/19 History [Citalopram HBr] Aspirin [Adult Low Dose Aspirin EC] 81 mg PO DAILY 09/17/17 09/12/19 History Allopurinol [Zyloprim] 300 mg PO DAILY 09/18/17 09/12/19 History Cetirizine HCl [Zyrtec] 10 mg PO DAILY 09/29/18 09/12/19 History Donepezil HCl [Aricept] 5 mg PO DAILY 10/06/18 09/12/19 History Gabapentin [Neurontin] 300 mg PO TID 05/17/19 09/12/19 History Ipratropium-Albuterol Nebulize 3 ml INHALATION RT-TID 06/18/19 09/12/19 History [Duoneb 0.5 mg-3 mg/3 ml Soln] Albuterol Sulfate [Proair Hfa] 2 puff INHALATION RT-Q6H PRN 07/30/19 09/12/19 History Atorvastatin Calcium [Lipitor] 80 mg PO DAILY 09/12/19 09/12/19 History Carvedilol [Coreg] 3.125 mg PO BID 09/12/19 09/12/19 History Ferrous Sulfate [Iron] 325 mg PO DAILY 09/12/19 09/12/19 History Fluocinonide/Emollient Base 1 applic TOPICAL BID 09/12/19 09/12/19 History [Fluocinonide-E 0.05% Cream] Furosemide [Lasix] 40 mg PO DAILY 09/12/19 09/12/19 History Lisinopril [Zestril] 10 mg PO DAILY 09/12/19 09/12/19 History Ticagrelor [Brilinta] 90 mg PO BID 09/12/19 09/12/19 History hydrOXYzine HCL 25 mg PO Q6H PRN 09/12/19 09/12/19 History Allergies Allergy/AdvReac Type Severity Reaction Status Date / Time hydromorphone [From Dilaudid] AdvReac Confusion Verified 09/12/19 21:47 Physical Exam Vitals: Vital Signs Temp Pulse Pulse Resp BP BP Pulse Ox 09/13/19 11:45 92 09/13/19 11:38 84 09/13/19 07:49 92 09/13/19 07:30 88 09/13/19 04:02 88 09/13/19 03:53 88 09/13/19 01:54 90 09/13/19 01:44 90 97 09/12/19 22:40 97.9 F 94 19 138/73 97 09/12/19 20:54 85 20 127/56 99 09/12/19 19:04 28 H 09/12/19 18:58 82 26 H 134/89 99 09/12/19 18:32 87 09/12/19 18:12 83 09/12/19 17:36 97.6 F 92 18 94/54 93 L Intake and Output 09/12/19 09/13/19 09/13/19 22:59 06:59 14:59 Intake Total 25 Output Total 400 500 Balance -375 -500 Intake: Oral 25 Output: Urine 400 500 Other: Voiding Method Urinal Weight 55.792 kg 55.792 kg Results 09/13/19 11:22 09/13/19 11:22 Cardiac Enzymes 09/12/19 09/12/19 09/13/19 Range/Units 18:52 18:52 11:22 AST 20 (17-59) U/L Troponin I <0.012 <0.012 (0.000-0.034) ng/mL Coagulation 09/12/19 Range/Units 18:52 PT 9.4 (9.0-12.0) sec APTT 25.8 (22.0-30.0) sec CBC 09/12/19 09/13/19 Range/Units 18:52 11:22 WBC 10.5 6.8 (3.8-10.6) k/uL RBC 3.66 L 3.18 L (4.30-5.90) m/uL Hgb 9.9 L 8.9 L (13.0-17.5) gm/dL Hct 33.9 L 29.5 L (39.0-53.0) % Plt Count 477 H 413 (150-450) k/uL Comprehensive Metabolic Panel 09/12/19 09/13/19 Range/Units 18:52 11:22 Sodium 142 143 (137-145) mmol/L Potassium 4.7 4.3 (3.5-5.1) mmol/L Chloride 118 H 118 H (98-107) mmol/L Carbon Dioxide 12 L 13 L (22-30) mmol/L BUN 26 H 19 (9-20) mg/dL Creatinine 1.69 H 1.12 (0.66-1.25) mg/dL Glucose 84 142 H (74-99) mg/dL Calcium 7.9 L 8.4 (8.4-10.2) mg/dL AST 20 (17-59) U/L ALT 13 L (21-72) U/L Alkaline Phosphatase 101 (38-126) U/L Total Protein 6.4 (6.3-8.2) g/dL Albumin 3.0 L (3.5-5.0) g/dL Current Medications Generic Name Dose Route Start Last Admin Trade Name Freq PRN Reason Stop Dose Admin Albuterol/Ipratropium 3 ml 09/12/19 21:18 09/13/19 11:35 Duoneb 0.5 Mg-3 Mg/3 Ml Soln INHALATION 3 ml RT-Q4H PRN Administration Shortness Of Breath Or Wheezing Allopurinol 300 mg 09/13/19 09:00 09/13/19 08:31 Zyloprim PO 300 mg DAILY [facility] Administration Atorvastatin Calcium 40 mg 09/13/19 21:00 Lipitor PO HS [facility] Citalopram Hydrobromide 20 mg 09/13/19 09:00 09/13/19 08:31 Celexa PO 20 mg QAM [facility] Administration Clopidogrel Bisulfate 75 mg 09/13/19 09:00 09/13/19 08:31 Plavix PO 75 mg QAM [facility] Administration Colchicine 0.6 mg 09/13/19 09:00 09/13/19 08:31 Colcrys PO 0.6 mg DAILY [facility] Administration Donepezil HCl 5 mg 09/13/19 09:00 09/13/19 08:31 Aricept PO 5 mg DAILY [facility] Administration Gabapentin 300 mg 09/12/19 22:00 09/13/19 08:31 Neurontin PO 300 mg TID [facility] Administration Sodium Bicarbonate 150 ml/ 1,150 mls @ 75 mls/hr 09/13/19 15:00 Dextrose/Water IV .[id number] [facility] Cefazolin Sodium 1,000 mg/ 50 mls @ 100 mls/hr 09/13/19 16:00 Sodium Chloride IVPB Q8HR [facility] Lisinopril 5 mg 09/13/19 09:00 09/13/19 08:31 Zestril PO 5 mg DAILY [facility] Administration Loratadine 10 mg 09/13/19 09:00 09/13/19 08:30 Claritin PO 10 mg DAILY [facility] Administration Methylprednisolone Sodium Succinate 60 mg 09/13/19 00:00 09/13/19 11:53 Solu-Medrol IV 60 mg Q6HR [facility] Administration Metoprolol Tartrate 50 mg 09/13/19 16:00 Lopressor PO TID [facility] Morphine Sulfate 4 mg 09/12/19 22:14 09/13/19 11:56 Morphine Sulfate (Inj) IVP 4 mg Q6H PRN Administration Severe Pain Nicotine 1 patch 09/13/19 09:00 09/13/19 08:31 Habitrol 21mg/24hr Patch TRANSDERM 1 patch DAILY [facility] Administration Triamcinolone Acetonide 1 applic 09/13/19 21:00 Kenalog TOPICAL BID [facility] Triamcinolone Acetonide 1 applic 09/14/19 14:30 Kenalog TOPICAL DAILY@1400 [facility] Intake and Output 09/12/19 09/13/19 09/13/19 22:59 06:59 14:59 Intake Total 25 Output Total 400 500 Balance -375 -500 Intake: Oral 25 Output: Urine 400 500 Other: Voiding Method Urinal Weight 55.792 kg 55.792 kg 09/13/19 11:22 09/13/19 11:22
[2019-09-13 15:51] VITALS: BMI 18.8
[2019-09-13] MEDS: DEXTROSE 5% IN WATER 1,000 ML with SODIUM BICARB (1 MEQ/ML) 150 ML IV SCH (15:51)
[2019-09-13] MEDS ORDERED: Magnesium Replacement Protocol 1 EACH MISC MISCELLANE PRN (16:12)
--- NOTE | 2019-09-13 16:16 | P.HPIM ---
History of Present Illness H&P Date: 09/13/19 This is a 63-year-old gentleman with past medical history of CAD, recent [place] July 2019 with PCI to left main, systolic CHF, ischemic cardiomyopathy DVT ,esophageal reflux disease, DJD, rheumatoid arthritis MRSA, peripheral vascular disease, psoriasis, presented to the ER with significant extensive global acute exacerbation of psoriasis. Denies any fevers or chills. Follows with [facility] placer, Dr. Chino. Received Humira injection last week. EKG reported sinus rhythm with nonspecific intraventricular block . Troponins negative 2. Echo reporting impaired LV function, EF 30-35%. Chest x-ray reporting no acute cardiopulmonary process. COPD and chronic pleural reaction at left lung base . Afebrile, WBC 6.8, hemoglobin 8.9, creatinine 1.12 on admission, potassium 4.3, magnesium 1.7. Venous blood gases reporting pH 7.1, pCO2 34, bicarb 10. Denies chest pain, palpitations or increased shortness of breath. No congestion. Proceeded to have a 14 beat run of symptomatic V. tach, while he was coughing. Denies lightheadedness, dizziness or focal deficits. Vital signs stable, afebr ile. Short of breath in the ER, received nebulized treatments and supplemental oxygen. Maintaining O2 sats in the high 90s on 4 L nasal cannula. Received fluid bolus in the ER with IV steroids, cefazolin initiated. Review of Systems ROS Statement: Those systems with pertinent positive or pertinent negative responses have been documented in the HPI. ROS Other: All systems not noted in ROS Statement are negative. Past Medical History Past Medical History: Coronary Artery Disease (CAD), COPD, Deep Vein Thrombosis (DVT), GERD/Reflux, Hyperlipidemia, Hypertension, Memory Impairment, Ost eoarthritis (OA), Rheumatoid Arthritis (RA), Skin Disorder, Vascular Disorder Additional Past Medical History / Comment(s): Multiple dislocations of left total hip, psoriasis, gout, hx of DVT both legs. Back and Hip pain. Current open left ankle wound with recent wound culture positive for pseudomonas. History of Any Multi-Drug Resistant Organisms: MRSA Date of last positivie culture/infection: 06/09/17 MDRO Source:: Left Ankle Past Surgical History: Back Surgery, Heart Catheterization With Stent, Hernia Repair, Joint Replacement, Orthopedic Surgery Additional Past Surgical History / Comment(s): 09/28/17 arthrectomy, balloon angioplasty with stent left SFA, Cardiac catheterization with 4 stents placed - 2012, stents placed in bilateral legs & thinks stents in abd aorta, Back surgery - fusion and anuel in back. Left Hip replacement, cataract eye sx. Left ankle has screws. LAPARASCOPIC SHANTANU FUNDOPLASTY. 10/06/2018 LSFA STENT AND ARTHRECTOMY. Past Anesthesia/Blood Transfusion Reactions: Previous Problems w/ Anesthesia Additional Past Anesthesia/Blood Transfusion Reaction / Comment(s): "HAS CONFUSION AND DISORIENTATION POST ANESTHESIA " on occasion. 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 No . No travel as of late. no animals in the home. Active tobacco use no current alcohol use Smoking Status: Current some day smoker Past Alcohol Use History: None Reported Additional Past Alcohol Use History / Comment(s): Started smoking at age 15- smoked 2 ppd, quit 2010. Started again 2016, less than 1ppd. Past Drug Use History: None Reported - Past Family History Mother Family Medical History: No Reported History Additional Family Medical History / Comment(s): Father History Unknown: Yes Family Medical History: Unable to Obtain Medications and Allergies Home Medications Medication Instructions Recorded Confirmed Type Citalopram Hydrobromide 20 mg PO DAILY 04/05/14 09/12/19 History [Citalopram HBr] Aspirin [Adult Low Dose Aspirin EC] 81 mg PO DAILY 09/17/17 09/12/19 History Allopurinol [Zyloprim] 300 mg PO DAILY 09/18/17 09/12/19 History Cetirizine HCl [Zyrtec] 10 mg PO DAILY 09/29/18 09/12/19 History Donepezil HCl [Aricept] 5 mg PO DAILY 10/06/18 09/12/19 History Gabapentin [Neurontin] 300 mg PO TID 05/17/19 09/12/19 History Ipratropium-Albuterol Nebulize 3 ml INHALATION RT-TID 06/18/19 09/12/19 History [Duoneb 0.5 mg-3 mg/3 ml Soln] Albuterol Sulfate [Proair Hfa] 2 puff INHALATION RT-Q6H PRN 07/30/19 09/12/19 History Atorvastatin Calcium [Lipitor] 80 mg PO DAILY 09/12/19 09/12/19 History Carvedilol [Coreg] 3.125 mg PO BID 09/12/19 09/12/19 History Ferrous Sulfate [Iron] 325 mg PO DAILY 09/12/19 09/12/19 History Fluocinonide/Emollient Base 1 applic TOPICAL BID 09/12/19 09/12/19 History [Fluocinonide-E 0.05% Cream] Furosemide [Lasix] 40 mg PO DAILY 09/12/19 09/12/19 History Lisinopril [Zestril] 10 mg PO DAILY 09/12/19 09/12/19 History Ticagrelor [Brilinta] 90 mg PO BID 09/12/19 09/12/19 History hydrOXYzine HCL 25 mg PO Q6H PRN 09/12/19 09/12/19 History Allergies Allergy/AdvReac Type Severity Reaction Status Date / Time hydromorphone [From Dilaudid] AdvReac Confusion Verified 09/12/19 21:47 Physical Exam Vitals: Vital Signs Temp Pulse Pulse Resp BP BP Pulse Ox 09/13/19 15:25 88 09/13/19 15:00 98.1 F 84 12 135/64 100 09/13/19 11:45 92 09/13/19 11:38 84 09/13/19 07:49 92 09/13/19 07:30 88 09/13/19 04:02 88 09/13/19 03:53 88 09/13/19 01:54 90 09/13/19 01:44 90 97 09/12/19 22:40 97.9 F 94 19 138/73 97 09/12/19 20:54 85 20 127/56 99 09/12/19 19:04 28 H 09/12/19 18:58 82 26 H 134/89 99 09/12/19 18:32 87 09/12/19 18:12 83 09/12/19 17:36 97.6 F 92 18 94/54 93 L Intake and Output 09/13/19 09/13/19 09/13/19 06:59 14:59 22:59 Intake Total 25 Output Total 400 500 Balance -375 -500 Intake: Oral 25 Output: Urine 400 500 Other: Weight 55.792 kg PHYSICAL EXAM: VITAL SIGNS: [As above] GENERAL: Sitting up in bed, head to toe/global extensive psoriatic lesions, HEENT: Conjunctivae normal. eyes normal. Oral mucosa moist NECK: No JVD. No thyroid enlargement. No LNs CARDIOVASCULAR: S1, S2 regular.. No murmur RESPIRATION: Breath sounds diminished in the bases. No rhonchi or crackles. No congestion. Fine expiratory wheezing ABDOMEN: Soft, nontender . No guarding. no masses palpable. No ascites, No hepatosplenomegaly.Bowel sounds heard. LEGS: No edema. no swelling PSYCHIATRY: Alert and oriented X3, mood and affect normal. NERVOUS SYSTEM: Cranial N 2-12 grossly normal. Moves all 4 limbs. Diffuse weakness No focal deficits. Strength and sensation grossly intact.. Skin: Dry flaky skin, extensive psoriasis. Left ankle dressing clean dry and intact. Lymphatic system. No LN neck axilla or groin. Results CBC & Chem 7: 09/13/19 11:22 09/13/19 11:22 Labs: Abnormal Lab Results - Last 24 Hours (Table) 09/12/19 09/12/19 09/12/19 Range/Units 18:52 18:52 20:50 RBC 3.66 L (4.30-5.90) m/uL Hgb 9.9 L (13.0-17.5) gm/dL Hct 33.9 L (39.0-53.0) % MCHC 29.2 L (31.0-37.0) g/dL RDW 19.7 H (11.5-15.5) % Plt Count 477 H (150-450) k/uL VBG pH 7.10 L* (7.31-7.41) VBG pCO2 34 L (37-51) mmHg VBG HCO3 10 L (24-28) mmol/L Chloride 118 H (98-107) mmol/L Carbon Dioxide 12 L (22-30) mmol/L BUN 26 H (9-20) mg/dL Creatinine 1.69 H (0.66-1.25) mg/dL Glucose (74-99) mg/dL Calcium 7.9 L (8.4-10.2) mg/dL ALT 13 L (21-72) U/L Albumin 3.0 L (3.5-5.0) g/dL 12/03/19 12/03/19 Range/Units 11:22 11:22 RBC 3.18 L (4.30-5.90) m/uL Hgb 8.9 L (13.0-17.5) gm/dL Hct 29.5 L (39.0-53.0) % MCHC 30.3 L (31.0-37.0) g/dL RDW 19.6 H (11.5-15.5) % Plt Count (150-450) k/uL VBG pH (7.31-7.41) VBG pCO2 (37-51) mmHg VBG HCO3 (24-28) mmol/L Chloride 118 H (98-107) mmol/L Carbon Dioxide 13 L (22-30) mmol/L BUN (9-20) mg/dL Creatinine (0.66-1.25) mg/dL Glucose 142 H (74-99) mg/dL Calcium (8.4-10.2) mg/dL ALT (21-72) U/L Albumin (3.5-5.0) g/dL Thrombosis Risk Factor Assmnt - Choose All That Apply Each Risk Factor Represents 2 Points: Age 61-74 years Thrombosis Risk Factor Assessment Total Risk Factor Score: 2 Thrombosis Risk Factor Assessment Level: Low Risk Assessment and Plan Assessment: Acute COPD exacerbation in a patient with advanced COPD Acute metabolic acidosis Acute exacerbation of psoriasis with severe pain, itching Acute renal failure, improving with IV fluid hydration Gastroesophageal reflux disease Nonsustained V. tach, symptomatic Recent acute [place], status post PCI left main, on dual antiplatelet therapy Chronic systolic heart failure Ischemic cardiomyopathy, EF 30-35% Severe peripheral vascular disease Chronic nicotine dependence Hypertension Hyperlipidemia History of MRSA History of rheumatoid arthritis History of gout Plan: Continue on current medication regime ,monitoring and symptomatic treatme nt. Maintain IV steroids. Pain management. Dr. Chino consulted. Maintain nebulized bronchodilators, Pulmicort, Perforomist .home med list being updated. GI and DVT prophylaxis in place. Evaluated by both cardiology and pulmonary with recommendations noted and appreciated. The impression and plan of care has been dictated as directed. : I performed a history and examination of this patient, discussed the same with the dictator. I agree with the dictator's note ,documented as a scribe. Any additional findings or plans will be noted.
[2019-09-13 17:14] LABS: Glucose,Whole Blood 218 mg/dL (75-99)
[2019-09-13] MEDS: INSULIN ASPART (NovoLOG) 100 UNIT/ML VIAL SQ SCH ×2 (17:30→21:17)
[2019-09-13] MEDS: CARVEDILOL 6.25 MG TAB PO SCH (17:30)
[2019-09-13] MEDS ORDERED: CARVEDILOL 3.125 MG TAB PO SCH (17:30)
[2019-09-13] MEDS: PANTOPRAZOLE 40 MG/10 ML VIAL IVP SCH (17:33)
[2019-09-13] MEDS: IPRATROPIUM-ALBUTEROL 3 ML NEB INHALATION SCH (18:52)
[2019-09-13] MEDS: TICAGRELOR 90 MG TAB PO SCH (20:02)
[2019-09-13] MEDS: ATORVASTATIN 80 MG TAB PO SCH (20:02)
[2019-09-13] MEDS: TRIAMCINOLONE ACET 0.1% OINTMENT 80 GM TUBE TOPICAL SCH (20:06)
--- NOTE | 2019-09-13 20:11 | CONS ---
CONSULTATION REASON FOR CONSULTATION: Rash. PIH: Patient is a 63-year-old male with past medical history of psoriasis. The patient was seen on 09/06/19 in office at [facility] for uncontrolled psoriasis. Patient had been on Humira and had to discontinue for other health issues. Patient's psoriasis was uncontrolled on topical medications. When patient was seen on 09/06, he was erythrodermic. Advised patient to restart Humira and administered 2 Humira injections on 09/06/2019 and continue topical steroids. Patient's called office on 09/12/2019 and stated patient had worsened and now had the chills and was not able to keep warm. Advised patient's at this time to have him go to the hospital for further management and to have his labs checked. PAST MEDICAL HISTORY: 1. Psoriasis. 2. Anxiety. 3. Arthritis. 4. COPD. 5. Coronary artery disease. 6. Hypertension. 7. Hypercholesteremia. PAST SURGICAL HISTORY: 1. PTCA of the heart. 2. Joint replacement on the hip. MEDICATIONS ON ADMISSION: Humira injections every 2 weeks. Trimacinolone 0.1% Ointment BID to affected areas See Chart ALLERGIES: NO KNOWN DRUG ALLERGIES. SOCIAL HISTORY: Smokes one pack per day. Denies alcohol or illegal substances. PHYSICAL EXAMINATION: GENERAL: The patient is currently in no apparent distress. He is alert and oriented x3. He is well nourished, well developed, cooperative and not anxious or agitated. NEUROLOGICAL: Cranial nerves 2 through 12 are grossly intact. HEAD AND NECK: Head is normocephalic and atraumatic. Neck is supple. Trachea is midline. No JVD noted. LUNGS: Respirations are unlabored. EXTREMITIES: No focal neurological defects noted. SKIN: Generalized bright erythema distributed on the body throughout. Scaling on the body throughout. LABS: See chart. IMPRESSIONS AND RECOMMENDATIONS: 1. Erythroderma. 2. Psoriasis. RECOMMENDATIONS: Please have patient use triamcinolone 0.1% ointment twice daily. Please have patient do wet wraps midday. Patient will have nursing staff dampen affected skin with warm water. Apply triamcinolone and then cover with tight-fitting clothing or wet gauze and then cover with warm blanket for one hour. Patient continue Humira injections. Patient is due for next injection on 09/20/2019. Please continue on injections to control psoriasis more adequately. Thank you for this consultation. MMODL / IJN: [id number] / PRIYANKA
[2019-09-13 20:45] LABS: Glucose,Whole Blood 133 mg/dL (75-99)
[2019-09-13] MEDS ORDERED: ATORVASTATIN 40 MG TAB PO SCH (21:00)
--- NOTE | 2019-09-13 22:51 | P.CONS ---
History of Present Illness - Reason for Consult Consult date: 09/13/19 Cellulitis and left medial ankle wound Requesting physician: Cyndy Hughes - Chief Complaint Generalized body rash x more than 1 week - History of Present Illness Patient is 63-year-old male with a past medical history significant for chronic nonhealing wound to the left medial ankle area the patient also have history of psoriasis and previously was on Humira apparently that has been discontinued recently for some other reason subsequently patient noticed to have worsening of his rash and developing a generalized body rash for the patient was evaluated in the outpatient setting by his web site admin Dr. Chino has been diagnosed with acute psoriatic rash and the patient was started on Humira despite the same Humira the patient noticed to have worsening of his generalized body rash patient be complaining of generalized body itching along with chills and unable to get warm, no clear history of any high-grade fever patient was advised to go to the ER on arrival to the patient was in his white count was a normal chest x- ray was negative for any acute infiltrate patient did receive 2 doses of cefazolin in the subsequently cefazolin was added and I was asked to see the patient for further recommendation regarding possible cellulitis patient is currently covered with generalized rash which has been peeling off and the patient also have a chronic nonhealing wound to the left medial ankle area for a couple of months now current local wound care has been endofoam dressing, the patient currently denies having any worsening pain to the left medial ankle wound. Or any purulent drainage and was not on any systemic antibiotic therapy in the outpatient setting Review of Systems Positive point has been mentioned in the HPI rest of the systems are negative Past Medical History Past Medical History: Coronary Artery Disease (CAD), COPD, Deep Vein Thrombosis (DVT), GERD/Reflux, Hyperlipidemia, Hypertension, Memory Impairment, Osteoarthritis (OA), Rheumatoid Arthritis (RA), Skin Disorder, Vascular Disorder Additional Past Medical History / Comment(s): Multiple dislocations of left total hip, psoriasis, gout, hx of DVT both legs. Back and Hip pain. Current open left ankle wound with recent wound culture positive for pseudomonas. History of Any Multi-Drug Resistant Organisms: MRSA Year Discovered:: 06/09/17 MDRO Source:: Left Ankle Past Surgical History: Back Surgery, Heart Catheterization With Stent, Hernia Repair, Joint Replacement, Orthopedic Surgery Additional Past Surgical History / Comment(s): 09/28/17 arthrectomy, balloon angioplasty with stent left SFA, Cardiac catheterization with 4 stents placed - 2012, stents placed in bilateral legs & thinks stents in abd aorta, Back surgery - fusion and anuel in back. Left Hip replacement, cataract eye sx. Left ankle has screws. LAPARASCOPIC SHANTANU FUNDOPLASTY. 10/06/2018 LSFA STENT AND ARTHRECTOMY. Past Anesthesia/Blood Transfusion Reactions: Previous Problems w/ Anesthesia Additional Past Anesthesia/Blood Transfusion Reaction / Comm: "HAS CONFUSION AND DISORIENTATION POST ANESTHESIA " on occasion. 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 No . No travel as of late. no animals in the home. Active tobacco use no current alcohol use Smoking Status: Current some day smoker Past Alcohol Use History: None Reported Additional Past Alcohol Use History / Comment(s): Started smoking at age 15- smoked 2 ppd, quit 2010. Started again 2016, less than 1ppd. Past Drug Use History: None Reported - Past Family History Mother Family Medical History: No Reported History Additional Family Medical History / Comment(s): Father History Unknown: Yes Family Medical History: Unable to Obtain Medications and Allergies Home Medications Medication Instructions Recorded Confirmed Type Citalopram Hydrobromide 20 mg PO DAILY 04/05/14 09/12/19 History [Citalopram HBr] Aspirin [Adult Low Dose Aspirin EC] 81 mg PO DAILY 09/17/17 09/12/19 History Allopurinol [Zyloprim] 300 mg PO DAILY 09/18/17 09/12/19 History Cetirizine HCl [Zyrtec] 10 mg PO DAILY 09/29/18 09/12/19 History Donepezil HCl [Aricept] 5 mg PO DAILY 10/06/18 09/12/19 History Gabapentin [Neurontin] 300 mg PO TID 05/17/19 09/12/19 History Ipratropium-Albuterol Nebulize 3 ml INHALATION RT-TID 06/18/19 09/12/19 History [Duoneb 0.5 mg-3 mg/3 ml Soln] Albuterol Sulfate [Proair Hfa] 2 puff INHALATION RT-Q6H PRN 07/30/19 09/12/19 History Atorvastatin Calcium [Lipitor] 80 mg PO DAILY 09/12/19 09/12/19 History Carvedilol [Coreg] 3.125 mg PO BID 09/12/19 09/12/19 History Ferrous Sulfate [Iron] 325 mg PO DAILY 09/12/19 09/12/19 History Fluocinonide/Emollient Base 1 applic TOPICAL BID 09/12/19 09/12/19 History [Fluocinonide-E 0.05% Cream] Furosemide [Lasix] 40 mg PO DAILY 09/12/19 09/12/19 History Lisinopril [Zestril] 10 mg PO DAILY 09/12/19 09/12/19 History Ticagrelor [Brilinta] 90 mg PO BID 09/12/19 09/12/19 History hydrOXYzine HCL 25 mg PO Q6H PRN 09/12/19 09/12/19 History Allergies Allergy/AdvReac Type Severity Reaction Status Date / Time hydromorphone [From Dilaudid] AdvReac Confusion Verified 09/12/19 21:47 Physical Exam Vitals: Vital Signs Temp Pulse Pulse Resp BP BP Pulse Ox 09/13/19 11:45 92 09/13/19 11:38 84 09/13/19 07:49 92 09/13/19 07:30 88 09/13/19 04:02 88 09/13/19 03:53 88 09/13/19 01:54 90 09/13/19 01:44 90 97 09/12/19 22:40 97.9 F 94 19 138/73 97 09/12/19 20:54 85 20 127/56 99 09/12/19 19:04 28 H 09/12/19 18:58 82 26 H 134/89 99 09/12/19 18:32 87 09/12/19 18:12 83 09/12/19 17:36 97.6 F 92 18 94/54 93 L Intake and Output 09/12/19 09/13/19 09/13/19 22:59 06:59 14:59 Intake Total 25 Output Total 400 500 Balance -375 -500 Intake: Oral 25 Output: Urine 400 500 Other: Voiding Method Urinal Weight 55.792 kg 55.792 kg GENERAL DESCRIPTION: An elderly male lying in bed, no distress. No tachypnea or accessory muscle of respiration use. HEENT: Shows Pallor , no scleral icterus. Oral mucous membrane is dry. No pharyngeal erythema or thrush NECK: Trachea central, no thyromegaly. LUNGS: Unlabored breathing. Decreased intensity of breath sounds. No wheeze or crackle. HEART: S1, S2, regular rate and rhythm. No loud murmur ABDOMEN: Soft, no tenderness , guarding or rigidity, no organomegaly EXTREMITIES: Left medial ankle wound chronic wound base currently with no slough tissue did have some clear drainage no surrounding redness or any foul-smelling SKIN: Patient had did have a generalized dry scaly rash NEUROLOGICAL: The patient is awake, alert, oriented x3, mood and affect normal. Results CBC & Chem 7: 09/13/19 11:22 09/13/19 11:22 Labs: Abnormal Lab Results - Last 24 Hours (Table) 09/12/19 09/12/19 09/12/19 Range/Units 18:52 18:52 20:50 RBC 3.66 L (4.30-5.90) m/uL Hgb 9.9 L (13.0-17.5) gm/dL Hct 33.9 L (39.0-53.0) % MCHC 29.2 L (31.0-37.0) g/dL RDW 19.7 H (11.5-15.5) % Plt Count 477 H (150-450) k/uL VBG pH 7.10 L* (7.31-7.41) VBG pCO2 34 L (37-51) mmHg VBG HCO3 10 L (24-28) mmol/L Chloride 118 H (98-107) mmol/L Carbon Dioxide 12 L (22-30) mmol/L BUN 26 H (9-20) mg/dL Creatinine 1.69 H (0.66-1.25) mg/dL Glucose (74-99) mg/dL Calcium 7.9 L (8.4-10.2) mg/dL ALT 13 L (21-72) U/L Albumin 3.0 L (3.5-5.0) g/dL 09/13/19 09/13/19 Range/Units 11:22 11:22 RBC 3.18 L (4.30-5.90) m/uL Hgb 8.9 L (13.0-17.5) gm/dL Hct 29.5 L (39.0-53.0) % MCHC 30.3 L (31.0-37.0) g/dL RDW 19.6 H (11.5-15.5) % Plt Count (150-450) k/uL VBG pH (7.31-7.41) VBG pCO2 (37-51) mmHg VBG HCO3 (24-28) mmol/L Chloride 118 H (98-107) mmol/L Carbon Dioxide 13 L (22-30) mmol/L BUN (9-20) mg/dL Creatinine (0.66-1.25) mg/dL Glucose 142 H (74-99) mg/dL Calcium (8.4-10.2) mg/dL ALT (21-72) U/L Albumin (3.5-5.0) g/dL Assessment and Plan Assessment: 1-patient presented to hospital with generalized body rash which could be related to his underlying psoriasis which is being managed in the outpatient setting by his web site admin clinically doubt generalized cellulitis 2-patient with a chronic nonhealing wound to the left medial ankle area with a question of possible secondary cellulitis previous culture from the ankle area with pseudomonas aeruginosa and this patient has also previously infected with MRSA (1) Wound of left ankle Current Visit: Yes Status: Acute Code(s): S91.002A - UNSPECIFIED OPEN WOUND, LEFT ANKLE, INITIAL ENCOUNTER SNOMED Code(s): 035073828 (2) Generalized rash Current Visit: Yes Status: Acute Code(s): R21 - RASH AND OTHER NONSPECIFIC SKIN ERUPTION SNOMED Code(s): 599701656 Plan: 1-we will obtain x-rays of the left medial ankle area 2-also obtain CRP and a sed rate 3-local wound care to the left medial ankle wound with a dry Aquacel silver dressing to be changed daily 4-we will empirically add cefepime 2 g every 12 hours and discontinue cefazolin We will follow on clinical condition and cultures to further adjust medication if needed Thank you for this consultation will follow this patient with you
[2019-09-14] MEDS: IPRATROPIUM-ALBUTEROL 3 ML NEB INHALATION PRN (00:07)
[2019-09-14] MEDS: MORPHINE SULFATE 4 MG/ML SYRINGE IVP PRN ×3 (02:21→19:46)
[2019-09-14] MEDS: methylPREDNISolone SOD SUCCI 125 MG/2 ML VIAL IV SCH ×4 (05:17→23:07)
[2019-09-14] MEDS: DEXTROSE 5% IN WATER 1,000 ML with SODIUM BICARB (1 MEQ/ML) 150 ML IV SCH ×2 (05:20→13:25)
--- NOTE | 2019-09-14 07:19 | XR ---
EXAMINATION TYPE: XR ankle complete LT DATE OF EXAM: 09/14/2019 CLINICAL HISTORY: Left medial ankle chronic wound. Ankle surgery approximately 30 years ago. TECHNIQUE: Frontal, lateral and oblique images of the left ankle are obtained. COMPARISON: None. FINDINGS: There is no acute fracture/dislocation evident in the left ankle. Subcutaneous emphysema seen from the decubitus ulcer overlying the skin surface overlying the medial malleolus. There is per iosteal reaction of the medial malleolus and distal tibia. There is near osseous fusion of the taloti bial joint with severe joint space narrowing and subchondral geodes. Osseous proliferation is seen. 2 cortical screws traverse an old medial malleolus fracture. Diffuse osseous demineralization is seen. Extensive atherosclerosis. Small plantar heel spur. IMPRESSION: Ulceration over the medial malleolus with periosteal reaction concerning for osteomyeliti s. Extensive arthropathy of the talotibial joint with near osseous fusion. Three-phase bone scan coul d assess for osteomyelitis.
[2019-09-14] MEDS: CITALOPRAM HYDROBROMIDE 20 MG TAB PO SCH (07:45)
[2019-09-14] MEDS: CEFEPIME 2 GM in SODIUM CHLORIDE 0.9% 100 ML IVPB SCH ×2 (07:46→19:49)
[2019-09-14] MEDS: LORATADINE 10 MG TAB PO SCH (07:46)
[2019-09-14] MEDS: PANTOPRAZOLE 40 MG/10 ML VIAL IVP SCH (07:46)
[2019-09-14] MEDS: GABAPENTIN 300 MG CAP PO SCH ×3 (07:46→21:37)
[2019-09-14] MEDS: CARVEDILOL 6.25 MG TAB PO SCH (07:46)
[2019-09-14] MEDS: ALLOPURINOL 300 MG TAB PO SCH (07:46)
[2019-09-14] MEDS: LISINOPRIL 5 MG TAB PO SCH (07:46)
[2019-09-14] MEDS: TICAGRELOR 90 MG TAB PO SCH ×2 (07:47→19:49)
[2019-09-14] MEDS: NICOTINE 21MG/24HR PATCH TRANSDERM SCH (07:47)
[2019-09-14] MEDS: TRIAMCINOLONE ACET 0.1% OINTMENT 80 GM TUBE TOPICAL SCH ×3 (07:48→19:27)
[2019-09-14 07:53] LABS: Glucose,Whole Blood 151 mg/dL (75-99)
[2019-09-14] MEDS: INSULIN ASPART (NovoLOG) 100 UNIT/ML VIAL SQ SCH ×4 (07:53→21:34)
[2019-09-14 07:57] LABS: Anisocytosis Moderate; Basophils % (A) 0 %; Eosinophils % (A) 0 %; HCT 25.8 % (39.0-53.0); HGB 8.1 gm/dL (13.0-17.5); Hypochromasia Marked; Lymphocytes # (A) 0.9 k/uL (1.0-4.8); Lymphocytes % (A) 10 %; MCH 28.2 pg (25.0-35.0); MCHC 31.3 g/dL (31.0-37.0); Mean Platelet Volume 5.9; Monocytes # (A) 0.3 k/uL (0-1.0); Monocytes % (A) 3 %; Neutrophils # (A) 8.3 k/uL (1.3-7.7); Neutrophils % (A) 86 %; Platelet Count 415 k/uL (150-450); Poikilocytosis Slight; RBC 2.87 m/uL (4.30-5.90); WBC 9.5 k/uL (3.8-10.6)
[2019-09-14 08:03] LABS: African American GFR (CKD) >90 (>60 ml/min/1.73 sqM); Anion Gap 12 mmol/L; Blood Urea Nitrogen 17 mg/dL (9-20); Calcium 8.3 mg/dL (8.4-10.2); Carbon Dioxide 17 mmol/L (22-30); Chloride 112 mmol/L (98-107); Glucose 135 mg/dL (74-99); Magnesium 1.5 mg/dL (1.6-2.3); Non-African American GFR(CKD) >90 (>60 ml/min/1.73 sqM); Potassium 4.3 mmol/L (3.5-5.1); Sodium 141 mmol/L (137-145)
[2019-09-14] MEDS: IPRATROPIUM-ALBUTEROL 3 ML NEB INHALATION SCH ×4 (08:21→19:41)
[2019-09-14 09:15] LABS: C Reactive Protein 27.8 mg/L (<10.0)
[2019-09-14] MEDS: DONEPEZIL 5 MG TAB PO SCH (09:57)
[2019-09-14] MEDS ORDERED: hydrOXYzine HCL 25 MG TAB PO PRN (09:59)
--- NOTE | 2019-09-14 10:16 | P.PN ---
Subjective Progress Note Date: 09/14/19 Principal diagnosis: Acute psoriatic exacerbation, acute COPD exacerbation This is 63-year-old white male patient with past medical history of advanced COPD and baseline FEV1 of 1.12 liters or 34% of predicted, not on home oxygen normally, history of hypertension, hyperlipidemia, coronary artery disease with previous stenting, peripheral vascular disease with a history of intervention, history of MRSA, and chronic ulceration on his left foot, rheumatoid arthritis, gout, psoriasis, DVT, long history of smoking, and patient states he quit smoking 2 weeks ago. Patient presented to the hospital on with complaints of severe generalized psoriasis, severe pain and itching. He normally sees Dr. Chino, and he has been applying some type of medicated lotion to his skin, with no improvement. In addition patient was having increasing difficulty breathing, which was progressively worse. Denied any fever or chills, his cough is nonproductive. Chest x-ray was completed showing no acute cardiopulmonary process. Showed background of COPD and chronic pleural reaction at the left lung base. Admission labs showed a white blood cell count of 10.5, hemoglobin of 9.9, coagulation profile was within normal limits, sodium is 142, potassium is 4.7, chloride is 118, CO2 was 12, B1 is 26 and creatinine is 1.69, troponin was negative 1, lactic acid was 1.3, venous blood gas showed pH of 7.10, pCO2 34, and bicarb of 10, consistent with acute metabolic acidosis with respiratory compensation. Patient is afebrile, she was placed on supplemental oxygen at 4 L, his pulse ox today is 97%, hemodynamically stable, blood pressures 138/73, sinus mechanism with a rate of 99 BPM with a right bundle branch block pattern. Patient was given a liter bolus in the emergency department, and his maintenance IV fluids are infusing at a rate of 100 ML per hour he was started on IV steroids, breathing treatments and given a dose of IV Kefzol in the emergency department and admitted for further management. On 09/14/2019 patient seen in follow-up on medical surgical floor. He sitting up in the chair, he states the pain and itching are improved, although she is still having some severe pain and itching and the rash on his back. As his breathing is improving, currently does not appear to be in any acute distress, he remains on 4 L of oxygen the pulse ox of 96-97%, has been afebrile, but he is very chilled, and states he is very cold sitting up in the chair, was to get back in bed. Hemodynamically stable, lung sounds reveal a few scattered rhonchi, no major wheezing, good air entry noted bilaterally, he has been started on antibiotics in the form of cefepime by infectious diseases, and left ankle wound cultures were sent and are pending at this time, blood culture showed no growth. He remains on IV steroids, he remains on bicarb infusion, today's labs have been reviewed showing white blood cell count of 9.5, hemoglobin is 8.1, sodium is 141, potassium is 4.3, chloride is 112, CO2 is improving at 17, BUN is 17 and creatinine is 0.73. C-reactive protein is 27.8. X-ray of the left ankle was taken showing ulceration over the medial malleolus with periodic still reaction concerning for osteomyelitis. he may need a bone scan to rule out osteomyelitis. Objective - Vital Signs Vital signs: Vital Signs Temp 97.9 F 09/14/19 07:13 Pulse 96 09/14/19 08:30 Resp 17 09/14/19 07:13 BP 144/67 09/14/19 07:13 Pulse Ox 96 09/14/19 00:59 Intake & Output 09/13/19 09/14/19 09/14/19 18:59 06:59 18:59 Intake Total 20 240 Output Total 500 600 Balance -500 -580 240 Weight 58.06 kg Intake: Oral 20 240 Output: Urine 500 600 Other: Voiding Method Urinal # Voids 1 - Exam GENERAL EXAM: Alert, pleasant, 63-year-old white male, covered with extensive psoriatic lesions including his ears, forehead, neck, shoulders, torso, and lower extremities. Patient called, and he is asking for more blankets, he is feeling chilled this morning. No signs of acute respiratory distress HEAD: Normocephalic/atraumatic. EYES: Normal reaction of pupils, equal size. Conjunctiva pink, sclera white. NOSE: Clear with pink turbinates. THROAT: No erythema or exudates. NECK: No masses, no JVD, no thyroid enlargement, no adenopathy. CHEST: No chest wall deformity. Symmetrical expansion. LUNGS: Equal air entry with a few rhonchi, no significant wheezing or congestion CVS: Regular rate and rhythm, normal S1 and S2, no gallops, no murmurs, no rubs ABDOMEN: Soft, nontender. No hepatosplenomegaly, normal bowel sounds, no guarding or rigidity. EXTREMITIES: No clubbing, no edema, no cyanosis, 2+ pulses and upper and lower extremities. MUSCULOSKELETAL: Muscle strength and tone normal. SPINE: No scoliosis or deformity SKIN: Extensive psoriatic lesions covering the patient's ears, forehead, neck, shoulders, arms, torso and to a greater extent lower extremities. There is a dressing on the left ankle covering a chronic wound CENTRAL NERVOUS SYSTEM: Alert and oriented -3. No focal deficits, tone is normal in all 4 extremities. PSYCHIATRIC: Alert and oriented -3. Appropriate affect. Intact judgment and insight. - Labs CBC & Chem 7: 09/14/19 07:04 09/14/19 07:04 Labs: Abnormal Lab Results - Last 24 Hours (Table) 09/13/19 09/13/19 09/13/19 Range/Units 11:22 11:22 17:11 RBC 3.18 L (4.30-5.90) m/uL Hgb 8.9 L (13.0-17.5) gm/dL Hct 29.5 L (39.0-53.0) % MCHC 30.3 L (31.0-37.0) g/dL RDW 19.6 H (11.5-15.5) % Neutrophils # (1.3-7.7) k/uL Lymphocytes # (1.0-4.8) k/uL Chloride 118 H (98-107) mmol/L Carbon Dioxide 13 L (22-30) mmol/L Glucose 142 H (74-99) mg/dL POC Glucose (mg/dL) 218 H (75-99) mg/dL Calcium (8.4-10.2) mg/dL Magnesium (1.6-2.3) mg/dL C-Reactive Protein (<10.0) mg/L 09/13/19 09/14/19 09/14/19 Range/Units 20:43 07:04 07:04 RBC 2.87 L (4.30-5.90) m/uL Hgb 8.1 L (13.0-17.5) gm/dL Hct 25.8 L (39.0-53.0) % MCHC (31.0-37.0) g/dL RDW 20.0 H (11.5-15.5) % Neutrophils # 8.3 H (1.3-7.7) k/uL Lymphocytes # 0.9 L (1.0-4.8) k/uL Chloride 112 H (98-107) mmol/L Carbon Dioxide 17 L (22-30) mmol/L Glucose 135 H (74-99) mg/dL POC Glucose (mg/dL) 133 H (75-99) mg/dL Calcium 8.3 L (8.4-10.2) mg/dL Magnesium 1.5 L (1.6-2.3) mg/dL C-Reactive Protein 27.8 H (<10.0) mg/L 09/14/19 Range/Units 07:51 RBC (4.30-5.90) m/uL Hgb (13.0-17.5) gm/dL Hct (39.0-53.0) % MCHC (31.0-37.0) g/dL RDW (11.5-15.5) % Neutrophils # (1.3-7.7) k/uL Lymphocytes # (1.0-4.8) k/uL Chloride (98-107) mmol/L Carbon Dioxide (22-30) mmol/L Glucose (74-99) mg/dL POC Glucose (mg/dL) 151 H (75-99) mg/dL Calcium (8.4-10.2) mg/dL Magnesium (1.6-2.3) mg/dL C-Reactive Protein (<10.0) mg/L Microbiology - Last 24 Hours (Table) 09/13/19 16:15 Gram Stain - Preliminary Ankle - Left Wound Culture - Preliminary 09/13/19 16:47 Anaerobic Culture - Preliminary Ankle - Left 09/12/19 19:33 Blood Culture - Preliminary Blood No Growth after 24 hours Assessment and Plan Plan: Assessment: #1. Severe pain and itching related to exacerbation of psoriasis. Patient presented to the hospital with extensive psoriatic lesions covering his whole body #2. Acute COPD exacerbation, likely related to acute metabolic acidosis #3. Non-anion gap metabolic acidosis related to acute kidney injury and dehydration, improving, and patient is on bicarb replacement infusion #4. Chronic anemia unspecified #5. History of advanced COPD not oxygen dependent, with baseline FEV1 of 1.12 L or 34% of predicted consistent with GOLD stage III COPD #6. History of 50 years of smoking, 1-2 packs a day, in remission for last 2 weeks #7. Coronary artery disease with previous stenting #8. Severe peripheral vascular disease with previous stenting and bilateral iliacs in 2013 #9. Hypertension #10. Hyperlipidemia #11. GERD/reflux #12. Hx rheumatoid arthritis and gout #13. History of MRSA infection #14. History of psoriasis #15. Chronic left ankle wound, rule out osteomyelitis Plan: Patient is breathing easier, no acute distress, no fever, but does admit to bein g chilled all the time. Vital signs are stable, he remains on 4 L of oxygen, no complaints of chest pain, no major wheezing, remains on IV steroids, breathing treatments, no significant cough or congestion, continue with bicarb infusion, his metabolic acidosis is improving, continue for another day and recheck labs tomorrow. I performed a history & physical examination of the patient and discussed their management with my nurse practitioner, Emily Jacome. I reviewed the nurse practitioner's note and agree with the documented findings and plan of care. Lung sounds are positive for diffuse wheezes throughout the lung castro. The findings and the impression was discussed with the patient. I attest to the documentation by the nurse practitioner. Time with Patient: Less than 30
[2019-09-14] MEDS ORDERED: Magnesium Replacement Protocol 1 EACH MISC MISCELLANE PRN (11:03)
[2019-09-14] MEDS: MAGNESIUM SULFATE-D5W PMX 1 GM in DEXTROSE/WATER 1 100ML.BAG IVPB SCH ×2 (11:27→13:26)
[2019-09-14] MEDS: ASPIRIN 81 MG PO SCH (11:27)
[2019-09-14 11:40] LABS: Glucose,Whole Blood 169 mg/dL (75-99)
--- NOTE | 2019-09-14 13:13 | P.PN ---
Subjective HISTORY OF PRESENTING ILLNESS This is a pleasant 63-year-old male past medical history significant for coronary artery disease s/p recent PCI to the left main at [facility] July 2019, severe peripheral vascular disease s/p multiple angioplasties of the left leg, hypertension, dyslipidemia, chronic systolic heart failure, psoriasis and ischemic cardiomyopathy. He follows in the office with Dr. Howell. He is seen and examined sitting up in the chair in mild respiratory distress. He states his itching has mildly improved but is still not tolerable. He denies chest pain, palpitations or dizziness. Infectious disease has initiated anti biotics and pulmonary care team has started sodium bicarb infusion. Blood pressure 144/67 heart rate 96 afebrile and maintaining oxygen saturation on nasal cannula. Laboratory data reviewed, WBC 9.5, hemoglobin 8.1, platelets 415, sodium 141, potassium 4.3, creatinine 0.73, magnesium 1.5. Currently maintained on brillinta 90 mg BID, as is lisinopril 5 mg daily, atorvastatin 80 mg daily, carvedilol 6.25 mg twice a day and aspirin 81 mg daily. PHYSICAL EXAMINATION CONSTITUTIONAL: No apparent distress. Dry flaking skin throughout all visualized areas of the skin. HEENT: Head is normocephalic. Pupils are equal, round. Sclerae anicteric. Mucous membranes of the mouth are moist. No JVD. No carotid bruit. CHEST EXAMINATION: Scattered rhonchi, no rales or wheezes. No chest wall tenderness is noted on palpation or with deep breathing. HEART EXAMINATION: Regular rate and rhythm. S1, S2 heard. No murmurs, gallops or rub. EXTREMITIES: 2+ peripheral pulses, no lower extremity edema and no calf tenderness. ASSESSMENT Non-sustained wide complex monomorphic ventricular tachycardia Hypomagnesemia COPD Chronic systolic heart failure, currently euvolemic Ischemic cardiomyopathy, EF 30-35% Recent acute myocardial infarction s/p impella assisted PCI to the left main, maintained on dual anti-platelet therapy Hypertension Dyslipidemia Severe peripheral vascular disease Chronic nicotine dependence PLAN No further arrhythmia noted on telemetry. Replace magnesium per protocol. Continue current medical regimen. Nurse Practitioner note has been reviewed, I agree with a documented findings an d plan of care. Patient was seen and examined. Objective - Vital Signs Vital signs: Vital Signs Temp 97.9 F 09/14/19 07:13 Pulse 96 09/14/19 08:30 Resp 17 09/14/19 07:13 BP 144/67 09/14/19 07:13 Pulse Ox 96 09/14/19 00:59 Intake & Output 09/13/19 09/14/19 09/14/19 18:59 06:59 18:59 Intake Total 20 240 Output Total 500 600 Balance -500 -580 240 Weight 58.06 kg Intake: Oral 20 240 Output: Urine 500 600 Other: Voiding Method Urinal # Voids 1 - Labs CBC & Chem 7: 09/14/19 07:04 09/14/19 07:04 Labs: Abnormal Lab Results - Last 24 Hours (Table) 09/13/19 09/13/19 09/13/19 Range/Units 11:22 11:22 17:11 RBC 3.18 L (4.30-5.90) m/uL Hgb 8.9 L (13.0-17.5) gm/dL Hct 29.5 L (39.0-53.0) % MCHC 30.3 L (31.0-37.0) g/dL RDW 19.6 H (11.5-15.5) % Neutrophils # (1.3-7.7) k/uL Lymphocytes # (1.0-4.8) k/uL Chloride 118 H (98-107) mmol/L Carbon Dioxide 13 L (22-30) mmol/L Glucose 142 H (74-99) mg/dL POC Glucose (mg/dL) 218 H (75-99) mg/dL Calcium (8.4-10.2) mg/dL Magnesium (1.6-2.3) mg/dL C-Reactive Protein (<10.0) mg/L 09/13/19 09/14/19 09/14/19 Range/Units 20:43 07:04 07:04 RBC 2.87 L (4.30-5.90) m/uL Hgb 8.1 L (13.0-17.5) gm/dL Hct 25.8 L (39.0-53.0) % MCHC (31.0-37.0) g/dL RDW 20.0 H (11.5-15.5) % Neutrophils # 8.3 H (1.3-7.7) k/uL Lymphocytes # 0.9 L (1.0-4.8) k/uL Chloride 112 H (98-107) mmol/L Carbon Dioxide 17 L (22-30) mmol/L Glucose 135 H (74-99) mg/dL POC Glucose (mg/dL) 133 H (75-99) mg/dL Calcium 8.3 L (8.4-10.2) mg/dL Magnesium 1.5 L (1.6-2.3) mg/dL C-Reactive Protein 27.8 H (<10.0) mg/L 09/14/19 Range/Units 07:51 RBC (4.30-5.90) m/uL Hgb (13.0-17.5) gm/dL Hct (39.0-53.0) % MCHC (31.0-37.0) g/dL RDW (11.5-15.5) % Neutrophils # (1.3-7.7) k/uL Lymphocytes # (1.0-4.8) k/uL Chloride (98-107) mmol/L Carbon Dioxide (22-30) mmol/L Glucose (74-99) mg/dL POC Glucose (mg/dL) 151 H (75-99) mg/dL Calcium (8.4-10.2) mg/dL Magnesium (1.6-2.3) mg/dL C-Reactive Protein (<10.0) mg/L Microbiology - Last 24 Hours (Table) 09/13/19 16:15 Gram Stain - Preliminary Ankle - Left Wound Culture - Preliminary 09/13/19 16:47 Anaerobic Culture - Preliminary Ankle - Left 09/12/19 19:33 Blood Culture - Preliminary Blood No Growth after 24 hours
--- NOTE | 2019-09-14 13:18 | P.PN ---
Subjective Progress Note Date: 09/14/19 H&P Date: 09/13/19 This is a 63-year-old gentleman with past medical history of CAD, recent MA July 2019 with PCI to left main, systolic CHF, ischemic cardiomyopathy DVT ,esophageal reflux disease, DJD, rheumatoid arthritis MRSA, peripheral vascular disease, psoriasis, presented to the ER with significant extensive global acute exacerbation of psoriasis. Denies any fevers or chills. Follows with technical inspector, Dr. Chino. Restarted Humira injection last week. EKG reported sinus rhythm with nonspecific intraventricular block . Troponins negative 2. Echo reporting impaired LV function, EF 30-35%. Chest x-ray reporting no acute cardiopulmonary process. COPD and chronic pleural reaction at left lung base . Afebrile, WBC 6.8, hemoglobin 8.9, creatinine 1.12 on admission, potassium 4.3, magnesium 1.7. Venous blood gases reporting pH 7.1, pCO2 34, bicarb 10. Denies chest pain, palpitations or increased shortness of breath. No congestion. Proceeded to have a 14 beat run of symptomatic V. tach, while he was coughing. Denies lightheadedness, dizziness or focal deficits. Vital signs stable, afebrile. Short of breath in the ER, received nebulized treatments and supplemental oxygen. Maintaining O2 sats in the high 90s on 4 L nasal cannula. Received fluid bolus in the ER with IV steroids, cefazolin initiated. 09/14/2019 evaluated by infectious disease, antibiotics adjusted to cefepime .Sitting up in chair, states pain is improved, continues to have significant itching and chills. Evaluated by a dermatology yesterday, triamcinolone ointment, wet wraps ordered in addition to continuing on Humira injections. No further runs reported per telemetry, sinus rhythm. Ankle x-ray reporting ulceration over the medial malleolus with periosteal reaction concerning for osteomyelitis, extensive arthropathy of the patella tibial joint with near osseous fusion. CRP elevated ,27.8.Afebrile, normal WBC. Vital signs stable, maintaining O2 sats in the 90s on 4 L nasal cannula. Hemoglobin 8.1. Magnesium 1.5. Objective - Vital Signs Vital signs: Vital Signs Temp 97.9 F 09/14/19 07:13 Pulse 96 09/14/19 08:30 Resp 17 09/14/19 07:13 BP 144/67 09/14/19 07:13 Pulse Ox 96 09/14/19 00:59 Intake & Output 09/13/19 09/14/19 09/14/19 18:59 06:59 18:59 Intake Total 20 240 Output Total 500 600 Balance -500 -580 240 Weight 58.06 kg Intake: Oral 20 240 Output: Urine 500 600 Other: Voiding Method Urinal # Voids 1 - Exam PHYSICAL EXAM: VITAL SIGNS: [As above] GENERAL: Sitting up in chair, global extensive psoriatic lesions, no acute distress HEENT: Conjunctivae normal. eyes normal. Oral mucosa moist NECK: No JVD. No thyroid enlargement. No LNs CARDIOVASCULAR: S1, S2 regular.. No murmur RESPIRATION: Breath sounds diminished in the bases. No rhonchi or crackles. No wheezing ABDOMEN: Soft, nontender . No guarding. no masses palpable. No ascites, No hepatosplenomegaly.Bowel sounds heard. LEGS: No edema. no swelling PSYCHIATRY: Alert and oriented X3, mood and affect normal. NERVOUS SYSTEM: Cranial N 2-12 grossly normal. Moves all 4 limbs. Diffuse weakness No focal deficits. Strength and sensation grossly intact.. Skin: Generalized dry flaky skin, extensive psoriasis with bright red erythema. Left ankle dressing clean dry and intact. Lymphatic system. No LN neck axilla or groin. Microbiology 09/13/19 16:15 Ankle - Left Gram Stain - Preliminary 09/13/19 16:15 Ankle - Left Wound Culture - Preliminary 09/13/19 16:47 Ankle - Left Anaerobic Culture - Preliminary 09/12/19 19:33 Blood Blood Culture - Preliminary No Growth after 24 hours - Labs CBC & Chem 7: 09/14/19 07:04 09/14/19 07:04 Labs: Abnormal Lab Results - Last 24 Hours (Table) 09/13/19 09/13/19 09/13/19 Range/Units 11:22 11:22 17:11 RBC 3.18 L (4.30-5.90) m/uL Hgb 8.9 L (13.0-17.5) gm/dL Hct 29.5 L (39.0-53.0) % MCHC 30.3 L (31.0-37.0) g/dL RDW 19.6 H (11.5-15.5) % Neutrophils # (1.3-7.7) k/uL Lymphocytes # (1.0-4.8) k/uL Chloride 118 H (98-107) mmol/L Carbon Dioxide 13 L (22-30) mmol/L Glucose 142 H (74-99) mg/dL POC Glucose (mg/dL) 218 H (75-99) mg/dL Calcium (8.4-10.2) mg/dL Magnesium (1.6-2.3) mg/dL C-Reactive Protein (<10.0) mg/L 09/13/19 09/14/19 09/14/19 Range/Units 20:43 07:04 07:04 RBC 2.87 L (4.30-5.90) m/uL Hgb 8.1 L (13.0-17.5) gm/dL Hct 25.8 L (39.0-53.0) % MCHC (31.0-37.0) g/dL RDW 20.0 H (11.5-15.5) % Neutrophils # 8.3 H (1.3-7.7) k/uL Lymphocytes # 0.9 L (1.0-4.8) k/uL Chloride 112 H (98-107) mmol/L Carbon Dioxide 17 L (22-30) mmol/L Glucose 135 H (74-99) mg/dL POC Glucose (mg/dL) 133 H (75-99) mg/dL Calcium 8.3 L (8.4-10.2) mg/dL Magnesium 1.5 L (1.6-2.3) mg/dL C-Reactive Protein 27.8 H (<10.0) mg/L 09/14/19 Range/Units 07:51 RBC (4.30-5.90) m/uL Hgb (13.0-17.5) gm/dL Hct (39.0-53.0) % MCHC (31.0-37.0) g/dL RDW (11.5-15.5) % Neutrophils # (1.3-7.7) k/uL Lymphocytes # (1.0-4.8) k/uL Chloride (98-107) mmol/L Carbon Dioxide (22-30) mmol/L Glucose (74-99) mg/dL POC Glucose (mg/dL) 151 H (75-99) mg/dL Calcium (8.4-10.2) mg/dL Magnesium (1.6-2.3) mg/dL C-Reactive Protein (<10.0) mg/L Microbiology - Last 24 Hours (Table) 09/13/19 16:15 Gram Stain - Preliminary Ankle - Left Wound Culture - Preliminary 09/13/19 16:47 Anaerobic Culture - Preliminary Ankle - Left 09/12/19 19:33 Blood Culture - Preliminary Blood No Growth after 24 hours Assessment and Plan Assessment: Acute COPD exacerbation in a patient with advanced COPD Acute metabolic acidosis Acute exacerbation of psoriasis with severe pain, itching,erythroderma. Acute renal failure, improving with IV fluid hydration Chronic left ankle wound, rule out osteomyelitis Gastroesophageal reflux disease Nonsustained V. tach, symptomatic Recent acute MA, status post PCI left main, on dual antiplatelet therapy Chronic systolic heart failure Ischemic cardiomyopathy, EF 30-35% Severe peripheral vascular disease Chronic nicotine dependence Hypertension Hyperlipidemia History of MRSA History of rheumatoid arthritis History of gout Hypomagnesemia Plan: Continue on current medication regime ,monitoring and symptomatic treatment. IV antibiotics, wound care as per infectious disease. Bone scan. IV access loss, unable to secure peripheral site, midline ordered .Atarax prn f or itching. Pain management. Continue on steroids, triamcinolone [place]/wound care as per dermatology. Maintain nebulized bronchodilators, Pulmicort, Perforomist . Magnesium replacement as per replacement protocol ordered. The impression and plan of care has been dictated as directed. : I performed a history and examination of this patient, discussed the same with the dictator. I agree with the dictator's note ,documented as a scribe. Any additional findings or plans will be noted.
[2019-09-14] MEDS ORDERED: CARVEDILOL 6.25 MG TAB PO STA (13:55)
--- NOTE | 2019-09-14 15:12 | PN ---
PROGRESS NOTE DATE OF SERVICE: 09/14/2019 REASON FOR FOLLOWUP: Left medial ankle wound and a question of osteomyelitis. INTERVAL HISTORY: The patient is currently afebrile. He is breathing comfortably. Patient denies having any chest pain. No abdominal pain or any worsening pain in the left medial ankle wound area. PHYSICAL EXAMINATION: Blood pressure 144/67, pulse of 91, temperature 97.9. General description is an elderly male, lying in bed in no distress. RESPIRATORY SYSTEM: Unlabored breathing, clear to auscultation anteriorly. HEART: S1, S2. Regular rate and rhythm. ABDOMEN: Soft, no tenderness. Left medial ankle wound with no obvious drainage on the dressing. LABS: Hemoglobin is 8.1, white count of 9.5, BUN of 17, creatinine 0.73. CRP 27. Surgery is currently pending, wound culture is pending. DIAGNOSTIC IMPRESSION AND PLAN: Patient with left medial ankle wound only with access suspicious for osteo, bone scan will be ordered. Culture will be followed. Will continue cefepime. Local care to continue with the dry Aquacel Silver dressing. Continue supportive care. Family at the bedside. Their questions were answered. MMODL / IJN: [id number] /
[2019-09-14 17:06] LABS: Glucose,Whole Blood 267 mg/dL (75-99)
[2019-09-14] MEDS: CARVEDILOL 12.5 MG TAB PO SCH (17:40)
[2019-09-14] MEDS: ATORVASTATIN 80 MG TAB PO SCH (19:49)
[2019-09-14 20:33] LABS: Glucose,Whole Blood 125 mg/dL (75-99)
[2019-09-15] MEDS: MORPHINE SULFATE 4 MG/ML SYRINGE IVP PRN ×5 (00:22→23:16)
[2019-09-15] MEDS: methylPREDNISolone SOD SUCCI 125 MG/2 ML VIAL IV SCH ×2 (05:51→11:45)
[2019-09-15 07:02] LABS: Glucose,Whole Blood 189 mg/dL (75-99)
[2019-09-15] MEDS: PANTOPRAZOLE 40 MG TABLET PO SCH (08:20)
[2019-09-15] MEDS: TICAGRELOR 90 MG TAB PO SCH ×2 (08:20→21:54)
[2019-09-15] MEDS: GABAPENTIN 300 MG CAP PO SCH ×3 (08:20→21:55)
[2019-09-15] MEDS: CITALOPRAM HYDROBROMIDE 20 MG TAB PO SCH (08:20)
[2019-09-15] MEDS: INSULIN ASPART (NovoLOG) 100 UNIT/ML VIAL SQ SCH ×4 (08:20→21:54)
[2019-09-15] MEDS: ASPIRIN 81 MG PO SCH (08:20)
[2019-09-15] MEDS: NICOTINE 21MG/24HR PATCH TRANSDERM SCH (08:20)
[2019-09-15] MEDS: LORATADINE 10 MG TAB PO SCH (08:20)
[2019-09-15] MEDS: LISINOPRIL 5 MG TAB PO SCH (08:21)
[2019-09-15] MEDS: ALLOPURINOL 300 MG TAB PO SCH (08:21)
[2019-09-15] MEDS: CARVEDILOL 12.5 MG TAB PO SCH ×2 (08:21→17:39)
[2019-09-15] MEDS: TRIAMCINOLONE ACET 0.1% OINTMENT 80 GM TUBE TOPICAL SCH ×3 (08:21→19:46)
[2019-09-15] MEDS: DONEPEZIL 5 MG TAB PO SCH (08:21)
[2019-09-15] MEDS: CEFEPIME 2 GM in SODIUM CHLORIDE 0.9% 100 ML IVPB SCH ×2 (08:22→21:54)
[2019-09-15 09:00] LABS: Anisocytosis Slight; Basophils % (A) 0 %; Eosinophils % (A) 0 %; HCT 31.5 % (39.0-53.0); Hypochromasia Moderate; Lymphocytes # (A) 0.8 k/uL (1.0-4.8); Lymphocytes % (A) 8 %; MCH 28.2 pg (25.0-35.0); MCHC 31.3 g/dL (31.0-37.0); MCV 89.9 fL (80.0-100.0); Mean Platelet Volume 5.8; Monocytes # (A) 0.3 k/uL (0-1.0); Monocytes % (A) 3 %; Neutrophils # (A) 8.8 k/uL (1.3-7.7); Neutrophils % (A) 89 %; Platelet Count 488 k/uL (150-450); Poikilocytosis Slight; RBC 3.51 m/uL (4.30-5.90); RDW 19.8 % (11.5-15.5); WBC 9.9 k/uL (3.8-10.6)
--- NOTE | 2019-09-15 09:00 | P.PN ---
Subjective Progress Note Date: 09/15/19 Principal diagnosis: Acute psoriatic exacerbation, acute COPD exacerbation This is 63-year-old white male patient with past medical history of advanced COPD and baseline FEV1 of 1.12 liters or 34% of predicted, not on home oxygen normally, history of hypertension, hyperlipidemia, coronary artery disease with previous stenting, peripheral vascular disease with a history of intervention, history of MRSA, and chronic ulceration on his left foot, rheumatoid arthritis, gout, psoriasis, DVT, long history of smoking, and patient states he quit smoking 2 weeks ago. Patient presented to the hospital on with complaints of severe generalized psoriasis, severe pain and itching. He normally sees Dr. Chino, and he has been applying some type of medicated lotion to his skin, with no improvement. In addition patient was having increasing difficulty breathing, which was progressively worse. Denied any fever or chills, his cough is nonproductive. Chest x-ray was completed showing no acute cardiopulmonary process. Showed background of COPD and chronic pleural reaction at the left lung base. Admission labs showed a white blood cell count of 10.5, hemoglobin of 9.9, coagulation profile was within normal limits, sodium is 142, potassium is 4.7, chloride is 118, CO2 was 12, B1 is 26 and creatinine is 1.69, troponin was negative 1, lactic acid was 1.3, venous blood gas showed pH of 7.10, pCO2 34, and bicarb of 10, consistent with acute metabolic acidosis with respiratory compensation. Patient is afebrile, she was placed on supplemental oxygen at 4 L, his pulse ox today is 97%, hemodynamically stable, blood pressures 138/73, sinus mechanism with a rate of 99 BPM with a right bundle branch block pattern. Patient was given a liter bolus in the emergency department, and his maintenance IV fluids are infusing at a rate of 100 ML per hour he was started on IV steroids, breathing treatments and given a dose of IV Kefzol in the emergency department and admitted for further management. On 09/14/2019 patient seen in follow-up on medical surgical floor. He sitting up in the chair, he states the pain and itching are improved, although she is still having some severe pain and itching and the rash on his back. As his breathing is improving, currently does not appear to be in any acute distress, he remains on 4 L of oxygen the pulse ox of 96-97%, has been afebrile, but he is very chilled, and states he is very cold sitting up in the chair, was to get back in bed. Hemodynamically stable, lung sounds reveal a few scattered rhonchi, no major wheezing, good air entry noted bilaterally, he has been started on antibiotics in the form of cefepime by infectious diseases, and left ankle wound cultures were sent and are pending at this time, blood culture showed no growth. He remains on IV steroids, he remains on bicarb infusion, today's labs have been reviewed showing white blood cell count of 9.5, hemoglobin is 8.1, sodium is 141, potassium is 4.3, chloride is 112, CO2 is improving at 17, BUN is 17 and creatinine is 0.73. C-reactive protein is 27.8. X-ray of the left ankle was taken showing ulceration over the medial malleolus with periodic still reaction concerning for osteomyelitis. he may need a bone scan to rule out osteomyelitis. On 09/15/2019 patient seen in follow-up on medical surgical floor. He sitting up on the bed, in no acute distress, has a loose congested nonproductive cough, lung sounds reveal no significant wheezing, diminished breath sounds bilaterally, his been afebrile, he remains on supplemental oxygen of 4 L, his pulse ox is 93-95%, hemodynamically patient is stable, remains on bicarb infusion at a rate of 75 ML per hour, awaiting morning lab results, no nausea vomiting. C. diff was negative. Bone scan of the left ankle is pending, remains on antibiotic coverage in the form of cefepime, infectious disease is following. Psoriatic skin lesions are looking better today, but still quite itchy according to the patient. Objective - Vital Signs Vital signs: Vital Signs Temp 98.2 F 09/15/19 07:00 Pulse 77 09/15/19 07:00 Resp 12 09/15/19 07:00 BP 144/66 09/15/19 07:00 Pulse Ox 95 09/15/19 07:00 Intake & Output 09/14/19 09/15/19 09/15/19 18:59 06:59 18:59 Intake Total 420 Output Total 800 Balance 420 -800 Intake: Oral 420 Output: Urine 800 Other: Voiding Method Urinal # Voids 3 3 1 # Bowel Movements 1 - Exam GENERAL EXAM: Alert, pleasant, 63-year-old white male, covered with psoriatic lesions including his ears, forehead, neck, shoulders, torso, and lower extremities. Rash appears to be better today, patient is receiving medicated steroid ointment. Still significant scaling of the skin and itching. Mildly short of breath with conversation, and nonproductive congested cough HEAD: Normocephalic/atraumatic. EYES: Normal reaction of pupils, equal size. Conjunctiva pink, sclera white. NOSE: Clear with pink turbinates. THROAT: No erythema or exudates. NECK: No masses, no JVD, no thyroid enlargement, no adenopathy. CHEST: No chest wall deformity. Symmetrical expansion. LUNGS: Equal air entry with diminished breath sounds bilaterally, no significant wheezing or congestion CVS: Regular rate and rhythm, normal S1 and S2, no gallops, no murmurs, no rubs ABDOMEN: Soft, nontender. No hepatosplenomegaly, normal bowel sounds, no guarding or rigidity. EXTREMITIES: No clubbing, no edema, no cyanosis, 2+ pulses and upper and lower extremities. MUSCULOSKELETAL: Muscle strength and tone normal. SPINE: No scoliosis or deformity SKIN: Extensive psoriatic lesions covering the patient's ears, forehead, neck, shoulders, arms, torso and to a greater extent lower extremities. There is a dressing on the left ankle covering a chronic wound CENTRAL NERVOUS SYSTEM: Alert and oriented -3. No focal deficits, tone is normal in all 4 extremities. PSYCHIATRIC: Alert and oriented -3. Appropriate affect. Intact judgment and insight. - Labs CBC & Chem 7: 09/14/19 07:04 09/14/19 07:04 Labs: Abnormal Lab Results - Last 24 Hours (Table) 09/14/19 09/14/19 09/14/19 Range/Units 07:04 11:38 17:05 POC Glucose (mg/dL) 169 H 267 H (75-99) mg/dL C-Reactive Protein 27.8 H (<10.0) mg/L 09/14/19 09/15/19 Range/Units 20:29 07:01 POC Glucose (mg/dL) 125 H 189 H (75-99) mg/dL C-Reactive Protein (<10.0) mg/L Microbiology - Last 24 Hours (Table) 09/12/19 19:33 Blood Culture - Preliminary Blood No Growth after 48 hours 09/13/19 16:15 Gram Stain - Preliminary Ankle - Left Wound Culture - Preliminary Gram Neg Bacilli Assessment and Plan Plan: Assessment: #1. Severe pain and itching related to exacerbation of psoriasis. Patient presented to the hospital with extensive psoriatic lesions covering his whole body #2. Acute COPD exacerbation, likely related to acute metabolic acidosis #3. Non-anion gap metabolic acidosis related to acute kidney injury and dehydration, improving, and patient is on bicarb replacement infusion #4. Chronic anemia unspecified #5. History of advanced COPD not oxygen dependent, with baseline FEV1 of 1.12 L or 34% of predicted consistent with GOLD stage III COPD #6. History of 50 years of smoking, 1-2 packs a day, in remission for last 2 weeks #7. Coronary artery disease with previous stenting #8. Severe peripheral vascular disease with previous stenting and bilateral iliacs in 2012 #9. Hypertension #10. Hyperlipidemia #11. GERD/reflux #12. Hx rheumatoid arthritis and gout #13. History of MRSA infection #14. History of psoriasis #15. Chronic left ankle wound, rule out osteomyelitis Plan: We'll continue with IV Solu-Medrol, breathing treatments. He is complaining of soreness in his mouth, but inspection revealed no candidiasis and no open sores on the mucous membranes of his mouth. We'll cut back to breathing treatments to 3 times daily, and as needed for shortness of breath. Awaiting the results of this morning's labs, if his metabolic acidosis is improving we'll switch the patient to oral bicarb today, bone scan of the lower extremity is pending. I performed a history & physical examination of the patient and discussed their management with my nurse practitioner, Emily Jacome. I reviewed the nurse practitioner's note and agree with the documented findings and plan of care. Lung sounds are positive for diffuse wheezes throughout the lung castro. The findings and the impression was discussed with the patient. I attest to the documentation by the nurse practitioner. Time with Patient: Less than 30
[2019-09-15 09:12] LABS: HGB 9.9 gm/dL (13.0-17.5)
[2019-09-15 09:30] LABS: African American GFR (CKD) >90 (>60 ml/min/1.73 sqM); Anion Gap 11 mmol/L; Blood Urea Nitrogen 22 mg/dL (9-20); Calcium 8.5 mg/dL (8.4-10.2); Carbon Dioxide 28 mmol/L (22-30); Chloride 105 mmol/L (98-107); Glucose 160 mg/dL (74-99); Magnesium 1.8 mg/dL (1.6-2.3); Non-African American GFR(CKD) >90 (>60 ml/min/1.73 sqM); Potassium 3.9 mmol/L (3.5-5.1); Sodium 144 mmol/L (137-145)
[2019-09-15] MEDS: IPRATROPIUM-ALBUTEROL 3 ML NEB INHALATION SCH ×4 (09:30→20:37)
--- NOTE | 2019-09-15 11:49 | NM ---
EXAMINATION TYPE: NM bone 3 phase DATE OF EXAM: 09/15/2019 COMPARISON: 06/04/2019 HISTORY: Left medial ankle, chronic Triple phase bone scintigraphy was performed following the injection of 24.2 mCi Tc 99m MDP. Immedia te images and 3.5 hours post injection images acquired. FINDINGS: There is increased flow and blood pool to the left ankle as well as focal delayed uptake. Findings ar e unchanged from the prior of 06/04/2019. Uptake is most focal of the distal tibia, fibula and proxima l talus. IMPRESSION: Scintigraphic findings are unchanged from 06/04/2019. Exam is positive in the distal tibia, fibula, an d proximal talus however this is a large distribution for osteoarthritis and also can be seen with se daniel arthropathy. MRI could confirm bone marrow replacement.
[2019-09-15 11:57] LABS: Glucose,Whole Blood 193 mg/dL (75-99)
--- NOTE | 2019-09-15 12:22 | P.PN ---
Subjective HISTORY OF PRESENTING ILLNESS This is a pleasant 63-year-old male past medical history significant for coronary artery disease s/p recent PCI to the left main at [facility] July 2019, severe peripheral vascular disease s/p multiple angioplasties of the left leg, hypertension, dyslipidemia, chronic systolic heart failure, psoriasis and ischemic cardiomyopathy. He follows in the office with Dr. Howell. He is seen and examined in no acute distress. He states overall his breathing is improved. Denies chest pain, worsening shortness of breath or dizziness. He complains of ongoing dry cough. Laboratory data reviewed, WBC 9.9, hgb 9.9, plt 488, sodium 144, potassium 3.9, creatinine 0.63, magnesium 1.8. Blood pressure 144/66 heart rate 88 afebrile and maintaining oxygen saturation on nasal cannula. PHYSICAL EXAMINATION CONSTITUTIONAL: No apparent distress. Dry flaking skin throughout all visualized areas of the skin. HEENT: Head is normocephalic. Pupils are equal, round. Sclerae anicteric. Mucous membranes of the mouth are moist. No JVD. No carotid bruit. CHEST EXAMINATION: Scattered rhonchi, no rales or wheezes. No chest wall tenderness is noted on palpation or with deep breathing. HEART EXAMINATION: Regular rate and rhythm. S1, S2 heard. No murmurs, gallops or rub. EXTREMITIES: 2+ peripheral pulses, no lower extremity edema and no calf tenderness. ASSESSMENT Non-sustained wide complex monomorphic ventricular tachycardia Hypomagnesemia, resolved COPD Chronic systolic heart failure, currently euvolemic Ischemic cardiomyopathy, EF 30-35% Recent acute myocardial infarction s/p impella assisted PCI to the left main, maintained on dual anti-platelet therapy Hypertension Dyslipidemia Severe peripheral vascular disease Chronic nicotine dependence PLAN Ongoing telemetry monitoring for ventricular tachycardia. Continue coreg 12.5 mg BID. Due to his high risk for sudden cardiac secondary to ischemic cardiom yopathy s/p [place] with VT we recommend Life Vest application prior to discharge. Case management has been notified and will initiate the process. Nurse Practitioner note has been reviewed, I agree with a documented findings and plan of care. Patient was seen and examined. Objective - Vital Signs Vital signs: Vital Signs Temp 98.2 F 09/15/19 07:00 Pulse 88 09/15/19 09:41 Resp 12 09/15/19 07:00 BP 144/66 09/15/19 07:00 Pulse Ox 99 09/15/19 09:33 Intake & Output 09/14/19 09/15/19 09/15/19 18:59 06:59 18:59 Intake Total 420 Output Total 800 Balance 420 -800 Intake: Oral 420 Output: Urine 800 Other: Voiding Method Urinal # Voids 3 3 1 # Bowel Movements 1 - Labs CBC & Chem 7: 09/15/19 08:32 09/15/19 08:32 Labs: Abnormal Lab Results - Last 24 Hours (Table) 09/14/19 09/14/19 09/15/19 Range/Units 17:05 20:29 07:01 RBC (4.30-5.90) m/uL Hgb (13.0-17.5) gm/dL Hct (39.0-53.0) % RDW (11.5-15.5) % Plt Count (150-450) k/uL Neutrophils # (1.3-7.7) k/uL Lymphocytes # (1.0-4.8) k/uL BUN (9-20) mg/dL Creatinine (0.66-1.25) mg/dL Glucose (74-99) mg/dL POC Glucose (mg/dL) 267 H 125 H 189 H (75-99) mg/dL 09/15/19 09/15/19 09/15/19 Range/Units 08:32 08:32 11:55 RBC 3.51 L (4.30-5.90) m/uL Hgb 9.9 L D (13.0-17.5) gm/dL Hct 31.5 L (39.0-53.0) % RDW 19.8 H (11.5-15.5) % Plt Count 488 H (150-450) k/uL Neutrophils # 8.8 H (1.3-7.7) k/uL Lymphocytes # 0.8 L (1.0-4.8) k/uL BUN 22 H (9-20) mg/dL Creatinine 0.63 L (0.66-1.25) mg/dL Glucose 160 H (74-99) mg/dL POC Glucose (mg/dL) 193 H (75-99) mg/dL Microbiology - Last 24 Hours (Table) 09/12/19 19:33 Blood Culture - Preliminary Blood No Growth after 48 hours 09/13/19 16:15 Gram Stain - Preliminary Ankle - Left Wound Culture - Preliminary Gram Neg Bacilli
--- NOTE | 2019-09-15 12:56 | P.PN ---
Subjective Progress Note Date: 09/15/19 H&P Date: 09/13/19 This is a 63-year-old gentleman with past medical history of CAD, recent OH July 2019 with PCI to left main, systolic CHF, ischemic cardiomyopathy DVT ,esophageal reflux disease, DJD, rheumatoid arthritis MRSA, peripheral vascular disease, psoriasis, presented to the ER with significant extensive global acute exacerbation of psoriasis. Denies any fevers or chills. Follows with software test analyst, Dr. Chino. Restarted Humira injection last week. EKG reported sinus rhythm with nonspecific intraventricular block . Troponins negative 2. Echo reporting impaired LV function, EF 30-35%. Chest x-ray reporting no acute cardiopulmonary process. COPD and chronic pleural reaction at left lung base . Afebrile, WBC 6.8, hemoglobin 8.9, creatinine 1.12 on admission, potassium 4.3, magnesium 1.7. Venous blood gases reporting pH 7.1, pCO2 34, bicarb 10. Denies chest pain, palpitations or increased shortness of breath. No congestion. Proceeded to have a 14 beat run of symptomatic V. tach, while he was coughing. Denies lightheadedness, dizziness or focal deficits. Vital signs stable, afebrile. Short of breath in the ER, received nebulized treatments and supplemental oxygen. Maintaining O2 sats in the high 90s on 4 L nasal cannula. Received fluid bolus in the ER with IV steroids, cefazolin initiated. 09/14/2019 evaluated by infectious disease, antibiotics adjusted to cefepime .Sitting up in chair, states pain is improved, continues to have significant itching and chills. Evaluated by a dermatology yesterday, triamcinolone ointment, wet wraps ordered in addition to continuing on Humira injections. No further runs reported per telemetry, sinus rhythm. Ankle x-ray reporting ulceration over the medial malleolus with periosteal reaction concerning for osteomyelitis, extensive arthropathy of the patella tibial joint with near osseous fusion. CRP elevated ,27.8.Afebrile, normal WBC. Vital signs stable, maintaining O2 sats in the 90s on 4 L nasal cannula. Hemoglobin 8.1. Magnesium 1.5. 09/15/2019 feels better today; itching, scaling,coldness/shakiness improving. Denies chest pain, palpitations or shortness of breath. Denies lightheadedness, dizziness or focal deficits. Afebrile. WBC 9.9. Tested negative for C. difficile colitis. Wound culture growing gram-negative bacilli. Bone scan in progress. Vital signs stable, maintaining O2 sats in the 90s on 4 L nasal cannula. Objective - Vital Signs Vital signs: Vital Signs Temp 98.2 F 09/15/19 07:00 Pulse 88 09/15/19 09:41 Resp 12 09/15/19 07:00 BP 144/66 09/15/19 07:00 Pulse Ox 99 09/15/19 09:33 Intake & Output 09/14/19 09/15/19 09/15/19 18:59 06:59 18:59 Intake Total 420 Output Total 800 Balance 420 -800 Intake: Oral 420 Output: Urine 800 Other: Voiding Method Urinal # Voids 3 3 1 # Bowel Movements 1 - Exam PHYSICAL EXAM: VITAL SIGNS: [As above] GENERAL: Sitting up at bedside, slowly improving global extensive psoriatic lesions, no acute distress HEENT: Conjunctivae normal. eyes normal. Oral mucosa moist NECK: No JVD. No thyroid enlargement. No LNs CARDIOVASCULAR: S1, S2 regular.. No murmur RESPIRATION: Breath sounds diminished in the bases. No rhonchi or crackles. No wheezing ABDOMEN: Soft, nontender . No guarding. no masses palpable. No ascites, No hepatosplenomegaly.Bowel sounds heard. LEGS: No edema. no swelling PSYCHIATRY: Alert and oriented X3, mood and affect normal. NERVOUS SYSTEM: Cranial N 2-12 grossly normal. Moves all 4 limbs. Diffuse weakness No focal deficits. Strength and sensation grossly intact.. Skin: Generalized improving scaling/flaky skin, extensive psoriasis with erythema. Left ankle dressing clean dry and intact. Lymphatic system. No LN neck axilla. Microbiology 09/12/19 19:33 Blood Blood Culture - Preliminary No Growth after 48 hours 09/13/19 16:15 Ankle - Left Gram Stain - Preliminary 09/13/19 16:15 Ankle - Left Wound Culture - Preliminary Gram Neg Bacilli 09/13/19 16:47 Ankle - Left Anaerobic Culture - Preliminary - Labs CBC & Chem 7: 09/15/19 08:32 09/15/19 08:32 Labs: Abnormal Lab Results - Last 24 Hours (Table) 09/14/19 09/14/19 09/15/19 Range/Units 17:05 20:29 07:01 RBC (4.30-5.90) m/uL Hgb (13.0-17.5) gm/dL Hct (39.0-53.0) % RDW (11.5-15.5) % Plt Count (150-450) k/uL Neutrophils # (1.3-7.7) k/uL Lymphocytes # (1.0-4.8) k/uL BUN (9-20) mg/dL Creatinine (0.66-1.25) mg/dL Glucose (74-99) mg/dL POC Glucose (mg/dL) 267 H 125 H 189 H (75-99) mg/dL 09/15/19 09/15/19 09/15/19 Range/Units 08:32 08:32 11:55 RBC 3.51 L (4.30-5.90) m/uL Hgb 9.9 L D (13.0-17.5) gm/dL Hct 31.5 L (39.0-53.0) % RDW 19.8 H (11.5-15.5) % Plt Count 488 H (150-450) k/uL Neutrophils # 8.8 H (1.3-7.7) k/uL Lymphocytes # 0.8 L (1.0-4.8) k/uL BUN 22 H (9-20) mg/dL Creatinine 0.63 L (0.66-1.25) mg/dL Glucose 160 H (74-99) mg/dL POC Glucose (mg/dL) 193 H (75-99) mg/dL Microbiology - Last 24 Hours (Table) 09/12/19 19:33 Blood Culture - Preliminary Blood No Growth after 48 hours 09/13/19 16:15 Gram Stain - Preliminary Ankle - Left Wound Culture - Preliminary Gram Neg Bacilli Assessment and Plan Assessment: Acute COPD exacerbation in a patient with advanced COPD Acute metabolic acidosis Acute exacerbation of psoriasis with severe pain, itching,erythroderma. Acute renal failure, improving with IV fluid hydration Chronic left ankle wound, rule out osteomyelitis, wound culture growing gram-negative bacilli, bone scan in progress. Gastroesophageal reflux disease Nonsustained V. tach, symptomatic Recent acute OH, status post PCI left main, on dual antiplatelet therapy Chronic systolic heart failure Ischemic cardiomyopathy, EF 30-35% Severe peripheral vascular disease Chronic nicotine dependence Hypertension Hyperlipidemia History of MRSA History of rheumatoid arthritis History of gout Hypomagnesemia Plan: Continue on current medication regime ,monitoring and symptomatic treatment. Bone scan in progress .IV antibiotics, wound care as per infectious disease. Continue on steroids, triamcinolone [place]/wound care as per dermatology. Continue on continuous telemetry monitoring. Cardiology recommended LifeVest application prior to Discharge. Maintain nebulized bronchodilators, Pulmicort, Perforomist. The impression and plan of care has been dictated as directed. : I performed a history and examination of this patient, discussed the same with the dictator. I agree with the dictator's note ,documented as a scribe. Any additional findings or plans will be noted.
[2019-09-15] MEDS ORDERED: methylPREDNISolone SOD SUCCI 40 MG/ML 1 ML VIAL IV SCH (16:00)
[2019-09-15 16:53] LABS: Glucose,Whole Blood 218 mg/dL (75-99)
--- NOTE | 2019-09-15 18:52 | PN ---
PROGRESS NOTE DATE OF SERVICE: 09/15/2019. REASON FOR FOLLOWUP: Left medial ankle wound and a question of osteomyelitis. INTERVAL HISTORY: The patient is currently afebrile. The patient has been breathing comfortably. The patient denies having any chest pain or cough, abdominal pain or any worsening pain to the left medial ankle wound area. PHYSICAL EXAMINATION: Blood pressure is 130/60 with a pulse of 88, temperature 98.3. He is 99% on 4 L nasal cannula. General description is an elderly male lying in bed in no distress. RESPIRATORY SYSTEM: Unlabored breathing. Clear to auscultation anteriorly. HEART: S1, S2. Regular rate and rhythm. ABDOMEN: Soft. No tenderness. Left medial ankle wound is currently dressed up. No obvious drainage on the dressing. LABS: Wound culture with Gram-negative bacilli. White count 9.9. DIAGNOSTIC IMPRESSION AND PLAN: Patient with a left medial ankle wound, chronic, with abnormal x-ray and concern for possible osteomyelitis. We will review the bone scan with the radiologist. Currently covered with cefepime; to continue. Waiting for the culture to finalize as well. Continue with supportive care. MMODL / IJN: [id number] /
[2019-09-15] MEDS: ATORVASTATIN 80 MG TAB PO SCH (19:44)
[2019-09-15] MEDS: methylPREDNISolone SOD SUCCI 40 MG/ML 1 ML VIAL IV SCH (19:45)
[2019-09-15 20:29] LABS: Glucose,Whole Blood 262 mg/dL (75-99)
[2019-09-15] MEDS ORDERED: INSULIN REGULAR 100 UNIT/ML VIAL SQ ONE (21:40)
[2019-09-15] MEDS ORDERED: SODIUM CHLORIDE 0.9% 1,000 ML IV SCH (21:45)
[2019-09-15] MEDS: DEXTROSE 5% IN WATER 1,000 ML with SODIUM BICARB (1 MEQ/ML) 150 ML IV SCH (21:53)
[2019-09-15 23:11] LABS: Glucose,Whole Blood 166 mg/dL (75-99)
[2019-09-16] MEDS: methylPREDNISolone SOD SUCCI 40 MG/ML 1 ML VIAL IV SCH ×2 (03:26→12:09)
[2019-09-16] MEDS: DEXTROSE 5% IN WATER 1,000 ML with SODIUM BICARB (1 MEQ/ML) 150 ML IV SCH (03:27)
[2019-09-16] MEDS: MORPHINE SULFATE 4 MG/ML SYRINGE IVP PRN ×2 (06:06→12:10)
[2019-09-16 07:00] LABS: Glucose,Whole Blood 176 mg/dL (75-99)
[2019-09-16] MEDS: NICOTINE 21MG/24HR PATCH TRANSDERM SCH (08:33)
[2019-09-16] MEDS: CARVEDILOL 12.5 MG TAB PO SCH ×2 (08:34→18:03)
[2019-09-16] MEDS: LISINOPRIL 5 MG TAB PO SCH (08:34)
[2019-09-16] MEDS: TICAGRELOR 90 MG TAB PO SCH (08:34)
[2019-09-16] MEDS: ASPIRIN 81 MG PO SCH (08:34)
[2019-09-16] MEDS: PANTOPRAZOLE 40 MG TABLET PO SCH (08:34)
[2019-09-16] MEDS: GABAPENTIN 300 MG CAP PO SCH ×2 (08:34→18:03)
[2019-09-16] MEDS: DONEPEZIL 5 MG TAB PO SCH (08:34)
[2019-09-16] MEDS: ALLOPURINOL 300 MG TAB PO SCH (08:34)
[2019-09-16] MEDS: LORATADINE 10 MG TAB PO SCH (08:34)
[2019-09-16] MEDS: CITALOPRAM HYDROBROMIDE 20 MG TAB PO SCH (08:34)
[2019-09-16] MEDS: INSULIN ASPART (NovoLOG) 100 UNIT/ML VIAL SQ SCH ×3 (08:34→18:04)
[2019-09-16] MEDS: CEFEPIME 2 GM in SODIUM CHLORIDE 0.9% 100 ML IVPB SCH ×2 (08:36→18:03)
[2019-09-16] MEDS: IPRATROPIUM-ALBUTEROL 3 ML NEB INHALATION SCH ×3 (08:53→20:01)
[2019-09-16] MEDS: TRIAMCINOLONE ACET 0.1% OINTMENT 80 GM TUBE TOPICAL SCH ×2 (09:10→19:11)
[2019-09-16] MEDS ORDERED: guaiFENesin 600 MG TABLET.ER PO SCH (10:45)
--- NOTE | 2019-09-16 11:42 | P.PN ---
Subjective HISTORY OF PRESENTING ILLNESS This is a pleasant 63-year-old male past medical history significant for coronary artery disease s/p recent PCI to the left main at [facility] July 2019, severe peripheral vascular disease s/p multiple angioplasties of the left leg, hypertension, dyslipidemia, chronic systolic heart failure, psoriasis and ischemic cardiomyopathy. He follows in the office with Dr. Howell. He is seen and examined sitting up in the chair with his at the bedside. Life Vest has been applied per the company rep. He continues to feel his baseline shortness of breath but denies any increasing symptoms. Denies chest pain or palpitations. Itching has greatly improved and his skin dryness has resolved. Blood pressure 151/65 heart rate 82 afebrile and maintaining oxygen saturation on nasal cannula. Telemetry tracings unremarkable. Currently maintained on aspirin 81 mg daily, atorvastatin 80 mg daily, carvedilol 12.5 mg twice a day, lisinopril 5 mg daily and brillinta 90 mg BID. PHYSICAL EXAMINATION CONSTITUTIONAL: No apparent distress. HEENT: Head is normocephalic. Pupils are equal, round. Sclerae anicteric. Mucous membranes of the mouth are moist. No JVD. No carotid bruit. CHEST EXAMINATION: Scattered rhonchi, no rales or wheezes. No chest wall tenderness is noted on palpation or with deep breathing. HEART EXAMINATION: Regular rate and rhythm. S1, S2 heard. No murmurs, gallops or rub. EXTREMITIES: 2+ peripheral pulses, no lower extremity edema and no calf tenderness. ASSESSMENT Non-sustained wide complex monomorphic ventricular tachycardia Hypomagnesemia, resolved COPD Chronic systolic heart failure, currently euvolemic Ischemic cardiomyopathy, EF 30-35% Recent acute myocardial infarction s/p impella assisted PCI to the left main, maintained on dual anti-platelet therapy Hypertension Dyslipidemia Severe peripheral vascular disease Chronic nicotine dependence PLAN Stable for discharge from a cardiac perspective. LifeVest applied per rep with instructions provided to the patient and his . Follow up in the office with Dr. Howell in 1-2 weeks. Nurse Practitioner note has been reviewed, I agree with a documented findings and plan of care. Patient was seen and examined. Objective - Vital Signs Vital signs: Vital Signs Temp 98.1 F 09/16/19 07:00 Pulse 82 09/16/19 09:07 Resp 16 09/16/19 07:00 BP 151/65 12/06/19 07:00 Pulse Ox 94 L 09/16/19 07:00 Intake & Output 09/15/19 09/16/19 09/16/19 18:59 06:59 18:59 Intake Total 1200 Output Total 950 Balance 250 Intake: Intake, IV Titration 900 Amount Sodium Chloride 0.9% 1, 900 000 ml @ 75 mls/hr IV . [id number] JACINTO Rx#:[id number] Oral 300 Output: Urine 950 Other: Voiding Method Urinal # Voids 1 1 # Bowel Movements 1 - Labs CBC & Chem 7: 09/15/19 08:32 09/15/19 08:32 Labs: Abnormal Lab Results - Last 24 Hours (Table) 09/15/19 09/15/19 09/15/19 Range/Units 11:55 16:51 20:28 ESR (0-15) mm/hr POC Glucose (mg/dL) 193 H 218 H 262 H (75-99) mg/dL 09/15/19 09/16/19 09/16/19 Range/Units 23:09 06:59 07:04 ESR 29 H (0-15) mm/hr POC Glucose (mg/dL) 166 H 176 H (75-99) mg/dL Microbiology - Last 24 Hours (Table) 09/13/19 16:47 Anaerobic Culture - Preliminary Ankle - Left 09/12/19 19:33 Blood Culture - Preliminary Blood No Growth after 72 hours 09/13/19 16:15 Gram Stain - Final Ankle - Left Wound Culture - Final Pseudomonas aeruginosa
[2019-09-16 11:55] LABS: Glucose,Whole Blood 156 mg/dL (75-99)
--- NOTE | 2019-09-16 12:30 | P.PN ---
Subjective Progress Note Date: 09/16/19 Principal diagnosis: Acute psoriatic exacerbation, acute COPD exacerbation This is 63-year-old white male patient with past medical history of advanced COPD and baseline FEV1 of 1.12 liters or 34% of predicted, not on home oxygen normally, history of hypertension, hyperlipidemia, coronary artery disease with previous stenting, peripheral vascular disease with a history of intervention, history of MRSA, and chronic ulceration on his left foot, rheumatoid arthritis, gout, psoriasis, DVT, long history of smoking, and patient states he quit smoking 2 weeks ago. Patient presented to the hospital on with complaints of severe generalized psoriasis, severe pain and itching. He normally sees Dr. Chino, and he has been applying some type of medicated lotion to his skin, with no improvement. In addition patient was having increasing difficulty breathing, which was progressively worse. Denied any fever or chills, his cough is nonproductive. Chest x-ray was completed showing no acute cardiopulmonary process. Showed background of COPD and chronic pleural reaction at the left lung base. Admission labs showed a white blood cell count of 10.5, hemoglobin of 9.9, coagulation profile was within normal limits, sodium is 142, potassium is 4.7, chloride is 118, CO2 was 12, B1 is 26 and creatinine is 1.69, troponin was negative 1, lactic acid was 1.3, venous blood gas showed pH of 7.10, pCO2 34, and bicarb of 10, consistent with acute metabolic acidosis with respiratory compensation. Patient is afebrile, she was placed on supplemental oxygen at 4 L, his pulse ox today is 97%, hemodynamically stable, blood pressures 138/73, sinus mechanism with a rate of 99 BPM with a right bundle branch block pattern. Patient was given a liter bolus in the emergency department, and his maintenance IV fluids are infusing at a rate of 100 ML per hour he was started on IV steroids, breathing treatments and given a dose of IV Kefzol in the emergency department and admitted for further management. On 09/14/2019 patient seen in follow-up on medical surgical floor. He sitting up in the chair, he states the pain and itching are improved, although she is still having some severe pain and itching and the rash on his back. As his breathing is improving, currently does not appear to be in any acute distress, he remains on 4 L of oxygen the pulse ox of 96-97%, has been afebrile, but he is very chilled, and states he is very cold sitting up in the chair, was to get back in bed. Hemodynamically stable, lung sounds reveal a few scattered rhonchi, no major wheezing, good air entry noted bilaterally, he has been started on antibiotics in the form of cefepime by infectious diseases, and left ankle wound cultures were sent and are pending at this time, blood culture showed no growth. He remains on IV steroids, he remains on bicarb infusion, today's labs have been reviewed showing white blood cell count of 9.5, hemoglobin is 8.1, sodium is 141, potassium is 4.3, chloride is 112, CO2 is improving at 17, BUN is 17 and creatinine is 0.73. C-reactive protein is 27.8. X-ray of the left ankle was taken showing ulceration over the medial malleolus with periodic still reaction concerning for osteomyelitis. he may need a bone scan to rule out osteomyelitis. On 09/15/2019 patient seen in follow-up on medical surgical floor. He sitting up on the bed, in no acute distress, has a loose congested nonproductive cough, lung sounds reveal no significant wheezing, diminished breath sounds bilaterally, his been afebrile, he remains on supplemental oxygen of 4 L, his pulse ox is 93-95%, hemodynamically patient is stable, remains on bicarb infusion at a rate of 75 ML per hour, awaiting morning lab results, no nausea vomiting. C. diff was negative. Bone scan of the left ankle is pending, remains on antibiotic coverage in the form of cefepime, infectious disease is following. Psoriatic skin lesions are looking better today, but still quite itchy according to the patient. On 09/16/2019 patient seen in follow-up on medical surgical floor. Since up in the chair, he states the itching and the pain are somewhat better, however he feels a bit more congested and wheezy, and he states that she feels like there is a mucous plug and it's difficult for him to bring it up. Lung sounds reveal a few scattered crackles, and wheezing, patient remains on IV steroids, nebulized treatments. Bicarb infusion has been stopped, yesterday's CO2 was up to 28, vital signs are stable, no acute events overnight, no new labs today, remains on antibiotic coverage for possibility of left medial ankle osteomyelitis. Objective - Vital Signs Vital signs: Vital Signs Temp 98.1 F 09/16/19 07:00 Pulse 82 09/16/19 09:07 Resp 16 09/16/19 07:00 BP 151/65 09/16/19 07:00 Pulse Ox 94 L 09/16/19 07:00 Intake & Output 09/15/19 09/16/19 09/16/19 18:59 06:59 18:59 Intake Total 1200 Output Total 950 Balance 250 Intake: Intake, IV Titration 900 Amount Sodium Chloride 0.9% 1, 900 000 ml @ 75 mls/hr IV . [id number] JACINTO Rx#:[id number] Oral 300 Output: Urine 950 Other: Voiding Method Urinal # Voids 1 1 # Bowel Movements 1 - Exam GENERAL EXAM: Alert, pleasant, 63-year-old white male. Psoriatic rash appears to be better today, patient is receiving medicated steroid ointment. Still significant scaling of the skin and itching. Mildly short of breath with conversation, and nonproductive congested cough HEAD: Normocephalic/atraumatic. EYES: Normal reaction of pupils, equal size. Conjunctiva pink, sclera white. NOSE: Clear with pink turbinates. THROAT: No erythema or exudates. NECK: No masses, no JVD, no thyroid enlargement, no adenopathy. CHEST: No chest wall deformity. Symmetrical expansion. LUNGS: Equal air entry with diminished breath sounds bilaterally, some scattered rhonchi and wheezing CVS: Regular rate and rhythm, normal S1 and S2, no gallops, no murmurs, no rubs ABDOMEN: Soft, nontender. No hepatosplenomegaly, normal bowel sounds, no guarding or rigidity. EXTREMITIES: No clubbing, no edema, no cyanosis, 2+ pulses and upper and lower extremities. MUSCULOSKELETAL: Muscle strength and tone normal. SPINE: No scoliosis or deformity SKIN: Extensive psoriatic lesions covering the patient's ears, forehead, neck, shoulders, arms, torso and to a greater extent lower extremities. There is a dressing on the left ankle covering a chronic wound CENTRAL NERVOUS SYSTEM: Alert and oriented -3. No focal deficits, tone is normal in all 4 extremities. PSYCHIATRIC: Alert and oriented -3. Appropriate affect. Intact judgment and insight. - Labs CBC & Chem 7: 09/15/19 08:32 09/15/19 08:32 Labs: Abnormal Lab Results - Last 24 Hours (Table) 09/15/19 09/15/19 09/15/19 Range/Units 16:51 20:28 23:09 ESR (0-15) mm/hr POC Glucose (mg/dL) 218 H 262 H 166 H (75-99) mg/dL 09/16/19 09/16/19 09/16/19 Range/Units 06:59 07:04 11:49 ESR 29 H (0-15) mm/hr POC Glucose (mg/dL) 176 H 156 H (75-99) mg/dL Microbiology - Last 24 Hours (Table) 09/13/19 16:47 Anaerobic Culture - Preliminary Ankle - Left 09/12/19 19:33 Blood Culture - Preliminary Blood No Growth after 72 hours 09/13/19 16:15 Gram Stain - Final Ankle - Left Wound Culture - Final Pseudomonas aeruginosa Assessment and Plan Plan: Assessment: #1. Severe pain and itching related to exacerbation of psoriasis. Patient presented to the hospital with extensive psoriatic lesions covering his whole body #2. Acute COPD exacerbation, likely related to acute metabolic acidosis, and metabolic acidosis has resolved #3. Non-anion gap metabolic acidosis related to acute kidney injury and dehydration and possibility of left medial ankle osteomyelitis, and patient was on bicarb replacement infusion, resolved #4. Chronic anemia unspecified #5. History of advanced COPD not oxygen dependent, with baseline FEV1 of 1.12 L or 34% of predicted consistent with GOLD stage III COPD #6. History of 50 years of smoking, 1-2 packs a day, in remission for last 2 weeks #7. Coronary artery disease with previous stenting #8. Severe peripheral vascular disease with previous stenting and bilateral iliacs in 2012 #9. Hypertension #10. Hyperlipidemia #11. GERD/reflux #12. Hx rheumatoid arthritis and gout #13. History of MRSA infection #14. History of psoriasis #15. Chronic left ankle wound, rule out osteomyelitis Plan: Continue current medical treatment, current dose of IV steroids, patient is having some increased congestion, we will add some Mucinex, and provide him with the flutter valve. Continue with nebulized bronchodilators, carbonate infusion has been discontinued, his metabolic acidosis has resolved. Vital signs are stable, continue with antibiotics per ID service recommendations. I performed a history & physical examination of the patient and discussed their management with my nurse practitioner, Emily Jacome. I reviewed the nurse practitioner's note and agree with the documented findings and plan of care. Lung sounds are positive for diffuse wheezes throughout the lung castro. The findings and the impression was discussed with the patient. I attest to the documentation by the nurse practitioner. Time with Patient: Less than 30
[2019-09-16] MEDS ORDERED: traMADol 50 MG TAB PO PRN (12:40)
[2019-09-16] MEDS ORDERED: LIDOCAINE 1% INJ 10MG/ML (20 ML MDV) SQ ONE (13:33)
[2019-09-16 16:57] LABS: Glucose,Whole Blood 249 mg/dL (75-99)
[2019-09-16 19:18] VITALS: BP 170/75; PULSE 97; RESP 20; TEMP 98
--- NOTE | 2019-09-16 20:24 | PN ---
PROGRESS NOTE DATE OF SERVICE: 09/16/2019 REASON FOR FOLLOWUP: Left medial ankle wound and concern for underlying osteomyelitis. INTERVAL HISTORY: The patient is currently afebrile. The patient is breathing comfortably. The patient denies having any chest pain. Occasional cough. No nausea, vomiting. No abdominal pain or pain to the left medial ankle wound area. PHYSICAL EXAMINATION: Blood pressure is 171/74 with a pulse of 80, temperature 97.7. He is 97% on 4 L nasal cannula. General description is an elderly male up in the chair in no distress. RESPIRATORY SYSTEM: Unlabored breathing with decreased intensity of breath sounds. No wheeze. HEART: S1, S2. Regular rate and rhythm. ABDOMEN: Soft. No tenderness. Left medial ankle was currently dressed up; no obvious drainage on the dressing. LABS/IMAGING: Sedimentation rate of 29. The bone scan was reviewed with radiologist; very suspicious for osteomyelitis in left medial ankle area where the patient did have a wound. Would culture revealed Pseudomonas aeruginosa. DIAGNOSTIC IMPRESSION AND PLAN: Patient with left medial ankle chronic nonhealing wound with concern for underlying septic arthritis/osteomyelitis. The patient at this time is on cefepime 2 grams q.12; to continue, as we cannot use the oral Cipro because of the SSRI the patient is on. Patient will get a PICC line. Once IV antibiotic is arranged, she will be able to go home from ID standpoint. Local wound care to continue with a dry Aquacel Silver dressing and followup in the wound care center. MMODL / IJN: [id number] /
--- NOTE | 2019-09-25 22:21 | P.DS ---
Providers Date of admission: 09/12/19 21:08 Expected date of discharge: 09/16/19 Attending physician: David Woodson Consults: 09/12/19 21:18 Consult Physician Stat Consulting Provider: Cyndy Hughes Consult Reason/Comments: COPD exacerbation, Do you want consulting provider notified?: Yes 09/13/19 10:15 Consult Physician Stat Consulting Provider: [facility] Consult Reason/Comments: run of 14 v-tach Do you want consulting provider notified?: Yes 09/13/19 12:21 Consult Physician Stat Consulting Provider: Keshawn Chino Consult Reason/Comments: psoriasis Do you want consulting provider notified?: Already Contacted 09/13/19 14:05 Consult Physician Routine Consulting Provider: Connie Bearden Consult Reason/Comments: cellulitis/psoriasis Do you want consulting provider notified?: Yes Primary care physician: David Woodson - Discharge Diagnosis(es) (1) Acute electrocardiogram changes Status: Acute (2) Altered mental status Status: Acute (3) Atherosclerosis of [place] arteries of left leg with ulceration of ankle Status: Acute (4) Cellulitis Status: Acute (5) GERD (gastroesophageal reflux disease) Status: Acute (6) Generalized rash Status: Acute (7) Lower extremity edema Status: Acute (8) Peripheral arterial disease Status: Acute (9) Psoriasis Status: Acute (10) Ventricular arrhythmia Status: Acute (11) COPD exacerbation Status: Acute Patient Condition at Discharge: Stable Plan - Discharge Summary Discharge Rx Participant: Yes New Discharge Prescriptions: New predniSONE 0 mg PO DIRECTED 16 Days #40 tab No Action Citalopram Hydrobromide [Citalopram HBr] 20 mg PO DAILY Aspirin [Adult Low Dose Aspirin EC] 81 mg PO DAILY Allopurinol [Zyloprim] 300 mg PO DAILY Cetirizine HCl [Zyrtec] 10 mg PO DAILY Donepezil HCl [Aricept] 5 mg PO DAILY Gabapentin [Neurontin] 300 mg PO TID Ipratropium-Albuterol Nebulize [Duoneb 0.5 mg-3 mg/3 ml Soln] 3 ml INHALATION RT-TID Albuterol Sulfate [Proair Hfa] 2 puff INHALATION RT-Q6H PRN PRN Reason: Shortness Of Breath Lisinopril [Zestril] 10 mg PO DAILY Atorvastatin Calcium [Lipitor] 80 mg PO DAILY hydrOXYzine HCL 25 mg PO Q6H PRN PRN Reason: ANXIETY/ITCHING Ticagrelor [Brilinta] 90 mg PO BID Furosemide [Lasix] 40 mg PO DAILY Fluocinonide/Emollient Base [Fluocinonide-E 0.05% Cream] 1 applic TOPICAL BID Ferrous Sulfate [Iron] 325 mg PO DAILY Carvedilol [Coreg] 3.125 mg PO BID Discharge Medication List Citalopram Hydrobromide [Citalopram HBr] 20 mg PO DAILY 04/05/14 [History] Aspirin [Adult Low Dose Aspirin EC] 81 mg PO DAILY 09/17/17 [History] Allopurinol [Zyloprim] 300 mg PO DAILY 09/18/17 [History] Cetirizine HCl [Zyrtec] 10 mg PO DAILY 09/29/18 [History] Donepezil HCl [Aricept] 5 mg PO DAILY 10/06/18 [History] Gabapentin [Neurontin] 300 mg PO TID 05/17/19 [History] Ipratropium-Albuterol Nebulize [Duoneb 0.5 mg-3 mg/3 ml Soln] 3 ml INHALATION RT-TID 06/18/19 [History] Albuterol Sulfate [Proair Hfa] 2 puff INHALATION RT-Q6H PRN 07/30/19 [History] Atorvastatin Calcium [Lipitor] 80 mg PO DAILY 09/12/19 [History] Carvedilol [Coreg] 3.125 mg PO BID 09/12/19 [History] Ferrous Sulfate [Iron] 325 mg PO DAILY 09/12/19 [History] Fluocinonide/Emollient Base [Fluocinonide-E 0.05% Cream] 1 applic TOPICAL BID 09/12/19 [History] Furosemide [Lasix] 40 mg PO DAILY 09/12/19 [History] Lisinopril [Zestril] 10 mg PO DAILY 09/12/19 [History] Ticagrelor [Brilinta] 90 mg PO BID 09/12/19 [History] hydrOXYzine HCL 25 mg PO Q6H PRN 09/12/19 [History] predniSONE 0 mg PO DIRECTED 16 Days #40 tab 09/16/19 [Rx] Follow up Appointment(s)/Referral(s): Cyndy Hughes MD [STAFF PHYSICIAN] - 1 Week Skaf,Hector, MD [STAFF PHYSICIAN] - 1 Week Keshawn Chino MD [STAFF PHYSICIAN] - 1 Week David Woodson DO [Primary Care Provider] - 1-2 days [facility], [NON-STAFF] - [facility], [REFERRING] - Patient Instructions/Handouts: COPD (Chronic Obstructive Pulmonary Disease) (DC) Activity/Diet/Wound Care/Special Instructions: Wear Life Vest as prescribed Apply Kenalog cream three times daily IV antibiotics per [facility] Discharge Disposition: HOME WITH HOME HEALTH SERVICES
== END 2019-09-16 20:24 | disposition home health service (06) | DRG 595 ==
LOC: EC 17:29 → 4SSUR 21:08
PROVIDERS: ADMIT Family Medicine; ATTEND Family Medicine
PROC: 02HV33Z Insertion of Infusion Device into Superior Vena Cava, Percutaneous Approach (ICD-10-PCS; principal; 2019-09-16 11:25)
DX: L40.9 Psoriasis, unspecified (principal); J96.01 Acute respiratory failure with hypoxia; J96.02 Acute respiratory failure with hypercapnia; E87.2 Acidosis; I47.2 Ventricular tachycardia; I50.22 Chronic systolic (congestive) heart failure; J44.1 Chronic obstructive pulmonary disease with (acute) exacerbation; L03.116 Cellulitis of left lower limb; L97.309 Non-pressure chronic ulcer of unspecified ankle with unspecified severity; N17.9 Acute kidney failure, unspecified; M00.9 Pyogenic arthritis, unspecified; M86.9 Osteomyelitis, unspecified; D64.9 Anemia, unspecified; E78.00 Pure hypercholesterolemia, unspecified; E78.5 Hyperlipidemia, unspecified; E83.42 Hypomagnesemia; E86.0 Dehydration; F17.210 Nicotine dependence, cigarettes, uncomplicated; I11.0 Hypertensive heart disease with heart failure; I25.10 Atherosclerotic heart disease of native coronary artery without angina pectoris; I25.2 Old myocardial infarction; I25.5 Ischemic cardiomyopathy; I45.10 Unspecified right bundle-branch block; I73.9 Peripheral vascular disease, unspecified; K21.9 Gastro-esophageal reflux disease without esophagitis; M06.9 Rheumatoid arthritis, unspecified; Z79.02 Long term (current) use of antithrombotics/antiplatelets; Z79.2 Long term (current) use of antibiotics; Z79.82 Long term (current) use of aspirin; Z79.899 Other long term (current) drug therapy; Z86.14 Personal history of Methicillin resistant Staphylococcus aureus infection; Z86.718 Personal history of other venous thrombosis and embolism; Z95.5 Presence of coronary angioplasty implant and graft; Z96.642 Presence of left artificial hip joint
CPT/HCPCS: 36410; 36415; 36573; 71046; 76937; 78315; 80048; 80053; 82803; 83605; 83735; 84484; 85025; 85027; 85610; 85652; 85730; 86140; 87040; 87070; 87075; 87077; 87186; 87205; 87493; 93005; 93306; 94640; 94760; 96361; 96374; 96375; 99285

== ENCOUNTER 2019-11-02 21:42 | Inpatient (IN) | payer MEDICARE ==
--- NOTE | 2019-11-02 22:51 | XR ---
EXAMINATION TYPE: XR chest 2V DATE OF EXAM: 11/02/2019 COMPARISON: September 12, 2019 HISTORY: Wheezing TECHNIQUE: FINDINGS: Heart is normal. There is some blunting left costophrenic angle. There is no heart failure. There are old right-sided healed rib fractures. There are chest leads. IMPRESSION: No active cardiopulmonary disease. Pleural diaphragmatic scarring left lung base. No solorzano ge.
[2019-11-02 22:52] LABS: Anisocytosis Moderate; HCT 24.5 % (39.0-53.0); HGB 8.1 gm/dL (13.0-17.5); MCH 31.1 pg (25.0-35.0); MCHC 33.1 g/dL (31.0-37.0); Macrocytosis Slight; Mean Platelet Volume 8.6; RBC 2.61 m/uL (4.30-5.90); RDW 20.7 % (11.5-15.5)
--- NOTE | 2019-11-02 22:55 | ED ---
SOB HPI - General Chief Complaint: Shortness of Breath Stated Complaint: lab recheck Time Seen by Provider: 11/02/19 21:55 Source: patient Mode of arrival: ambulatory Limitations: no limitations - History of Present Illness Initial Comments: This patient is a 63-year-old man who was referred to come to the department today by his physician. They had received a call that he had a number of abnormal lab results. The patient had blood counts sent and was noted to have low white blood cell count, low platelets and anemia. When I interview the patient, he states that he has been feeling a lot of generalized fatigue, exertional dyspnea, and generalized weakness going on a number of days. The patient recently had medication change. He is being treated for psoriasis and in addition to his normal Humira, the patient had methotrexate added about 3 weeks ago. He had routine lab testing and it revealed the abnormals and his blood counts. When I interview the patient, he is not having any symptoms of infection. He is denying sinus congestion or drainage, sore throat. The patient states that he has a chronic cough which is nonproductive, and he attributes to his COPD. The patient denies abdominal pain, vomiting or diarrhea. The patient has not noted change in his urine. He states that he has long-standing issues related to hesitancy and decreased stream that he believes is not new. No new skin rash. He does have a long-standing skin ulcer medial aspect of the right ankle for which she sees the wound clinic, being seen last week. MD Complaint: shortness of breath (Exertional), cough -: days(s) Consistency: now resolved Improves With: nothing Worsens With: exertion Known History Of: COPD Associated Symptoms: cough Treatments Prior to Arrival: none - Related Data Home Medications Medication Instructions Recorded Confirmed Gabapentin [Neurontin] 300 mg PO TID 05/17/19 11/03/19 Ipratropium-Albuterol Nebulize 3 ml INHALATION RT-QID 06/18/19 11/03/19 [Duoneb 0.5 mg-3 mg/3 ml Soln] Albuterol Sulfate [Proair Hfa] 2 puff INHALATION RT-Q4H PRN 07/30/19 11/03/19 Carvedilol [Coreg] 3.125 mg PO BID 09/12/19 11/03/19 Ferrous Sulfate [Iron] 325 mg PO DAILY 09/12/19 11/03/19 Furosemide [Lasix] 40 mg PO DAILY 09/12/19 11/03/19 Ticagrelor [Brilinta] 90 mg PO BID 09/12/19 11/03/19 hydrOXYzine HCL 25 mg PO HS 09/12/19 11/03/19 Adalimumab [Humira Crohn's] 40 mg SQ Q14D 11/03/19 11/03/19 Allopurinol [Zyloprim] 300 mg PO DAILY 11/03/19 11/03/19 Aspirin EC [Ecotrin Low Dose] 81 mg PO DAILY 11/03/19 11/03/19 Atorvastatin [Lipitor] 80 mg PO DAILY 11/03/19 11/03/19 Citalopram Hydrobromide [CeleXA] 20 mg PO DAILY 11/03/19 11/03/19 Donepezil [Aricept] 5 mg PO DAILY 11/03/19 11/03/19 Folic Acid 1 mg PO DIRECTED 11/03/19 11/03/19 Furosemide [Lasix] 20 mg PO HS 11/03/19 11/03/19 Lisinopril [Zestril] 10 mg PO DAILY 11/03/19 11/03/19 Methotrexate Sodium [Methotrexate] 15 mg PO Q7D 11/03/19 11/03/19 Metoprolol Tartrate [Lopressor] 50 mg PO BID 11/03/19 11/03/19 Triamcinolone 0.1% Cream [Kenalog 1 applicatio TOPICAL BID 11/03/19 11/03/19 0.1% Cream] traMADol HCL [traMADol HCL ER] 100 mg PO Q12H PRN 11/03/19 11/03/19 Allergies Allergy/AdvReac Type Severity Reaction Status Date / Time hydromorphone [From Dilaudid] AdvReac Confusion Verified 11/03/19 10:18 Review of Systems ROS Statement: Those systems with pertinent positive or pertinent negative responses have been documented in the HPI. ROS Other: All systems not noted in ROS Statement are negative. Constitutional: Reports: chills, weakness (Generalized). Denies: fever ENT: Denies: ear pain, throat pain, congestion Respiratory: Reports: as per HPI, cough, wheezes. Denies: dyspnea, hemoptysis Cardiovascular: Reports: dyspnea on exertion. Denies: chest pain, palpitations, edema, syncope Endocrine: Reports: fatigue Gastrointestinal: Denies: abdominal pain, nausea, vomiting, diarrhea Genitourinary: Denies: dysuria, frequency, hematuria, testicular pain, testicular mass Musculoskeletal: Denies: back pain Skin: Reports: as per HPI, lesions (Chronic ulcer) Neurological: Denies: headache, weakness Past Medical History Past Medical History: Coronary Artery Disease (CAD), COPD, Deep Vein Thrombosis (DVT), GERD/Reflux, Hyperlipidemia, Hypertension, Memory Impairment, Osteoarthritis (OA), Rheumatoid Arthritis (RA), Skin Disorder, Vascular Disorder Additional Past Medical History / Comment(s): Multiple dislocations of left total hip, psoriasis, gout, hx of DVT both legs. Back and Hip pain. Current open left ankle wound with recent wound culture positive for pseudomonas. History of Any Multi-Drug Resistant Organisms: MRSA Date of last positivie culture/infection: 06/09/17 MDRO Source:: Left Ankle Past Surgical History: Back Surgery, Heart Catheterization With Stent, Hernia Repair, Joint Replacement, Orthopedic Surgery Additional Past Surgical History / Comment(s): 09/28/17 arthrectomy, balloon angioplasty with stent left SFA, Cardiac catheterization with 4 stents placed - 2012, stents placed in bilateral legs & thinks stents in abd aorta, Back surgery - fusion and anuel in back. Left Hip replacement, cataract eye sx. Left ankle has screws. LAPARASCOPIC SHANTANU FUNDOPLASTY. 10/06/2018 LSFA STENT AND ARTHRECTOMY. Past Anesthesia/Blood Transfusion Reactions: Previous Problems w/ Anesthesia Additional Past Anesthesia/Blood Transfusion Reaction / Comment(s): "HAS CONFUSION AND DISORIENTATION POST ANESTHESIA " on occasion. Date of Last Stent Placement:: 2012 Past Psychological History: No Psychological Hx Reported Smoking Status: Current some day smoker Past Alcohol Use History: None Reported Past Drug Use History: None Reported - Past Family History Mother Family Medical History: No Reported History Additional Family Medical History / Comment(s): Father History Unknown: Yes Family Medical History: Unable to Obtain General Exam Limitations: no limitations General appearance: alert, in no apparent distress, cachectic Head exam: Present: atraumatic, normocephalic Eye exam: Present: normal appearance. Absent: scleral icterus, conjunctival injection ENT exam: Present: mucous membranes dry Neck exam: Present: normal inspection, full ROM. Absent: meningismus Respiratory exam: Present: wheezes. Absent: respiratory distress, rales, rhonchi, stridor, accessory muscle use, decreased breath sounds, prolonged expiratory Cardiovascular Exam: Present: regular rate, normal rhythm, normal heart sounds. Absent: systolic murmur, diastolic murmur, rubs, gallop GI/Abdominal exam: Present: soft. Absent: distended, tenderness, guarding, rebound, rigid Extremities exam: Present: normal inspection, normal capillary refill. Absent: pedal edema, calf tenderness Back exam: Present: normal inspection. Absent: CVA tenderness (R), CVA tenderness (L) Neurological exam: Present: alert Skin exam: Present: warm, dry, normal color, other (There is a skin ulcer to the medial aspect of the left ankle that does not have any erythema, warmth, or purulent drainage.) Course Vital Signs 11/02/19 11/02/19 11/03/19 21:43 23:00 00:00 Temperature 99.0 F Pulse Rate 93 78 77 Respiratory 20 20 19 Rate Blood Pressure 90/53 101/63 105/63 O2 Sat by Pulse 95 99 100 Oximetry 11/03/19 11/03/19 11/03/19 00:39 01:00 01:43 Temperature Pulse Rate 88 89 90 Respiratory 18 20 Rate Blood Pressure 111/70 111/70 O2 Sat by Pulse 96 96 Oximetry 11/03/19 11/03/19 01:50 02:00 Temperature Pulse Rate 82 85 Respiratory 18 Rate Blood Pressure 105/58 O2 Sat by Pulse 98 Oximetry - Reevaluation(s) Reevaluation #1: 11/03/19 01:38 I did discuss the case with Dr. Hamilton, who is covering for hematology and per recommendation hold the methotrexate and we'll continue the antibiotic coverage with cefepime until the cultures are resulted. No further recommendations from hematology. Medical Decision Making - Lab Data Result diagrams: 11/04/19 06:35 11/06/19 06:49 Lab Results 11/02/19 11/02/19 11/02/19 Range/Units 22:34 22:34 22:34 WBC 0.9 L* (3.8-10.6) k/uL RBC 2.61 L (4.30-5.90) m/uL Hgb 8.1 L (13.0-17.5) gm/dL Hct 24.5 L (39.0-53.0) % MCV 94.0 (80.0-100.0) fL MCH 31.1 (25.0-35.0) pg MCHC 33.1 (31.0-37.0) g/dL RDW 20.7 H (11.5-15.5) % Plt Count 82 L (150-450) k/uL Neutrophils % % Lymphocytes % % Monocytes % % Eosinophils % % Basophils % % Neutrophils # (1.3-7.7) k/uL Lymphocytes # (1.0-4.8) k/uL Monocytes # (0-1.0) k/uL Eosinophils # (0-0.7) k/uL Basophils # (0-0.2) k/uL Differential Comment Manual Slide Review Performed Hypochromasia Anisocytosis Moderate Anisocytosis (manual) Present Macrocytosis Slight Ovalocytes Present Rouleaux Present PT (9.0-12.0) sec INR (<1.2) APTT (22.0-30.0) sec Sodium 140 (137-145) mmol/L Potassium 3.8 (3.5-5.1) mmol/L Chloride 110 H (98-107) mmol/L Carbon Dioxide 18 L (22-30) mmol/L Anion Gap 12 mmol/L BUN 46 H (9-20) mg/dL Creatinine 1.00 (0.66-1.25) mg/dL Est GFR (CKD-EPI)AfAm >90 (>60 ml/min/1.73 sqM) Est GFR (CKD-EPI)NonAf 79 (>60 ml/min/1.73 sqM) Glucose 118 H (74-99) mg/dL Plasma Lactic Acid Juan 1.3 (0.7-2.0) mmol/L Calcium 8.4 (8.4-10.2) mg/dL Iron (65-175) ug/dL TIBC (228-460) ug/dL % Saturation (15.00-50.00) Ferritin (22.0-322.0) ng/mL Total Bilirubin 0.4 (0.2-1.3) mg/dL AST 22 (17-59) U/L ALT 12 (4-49) U/L Alkaline Phosphatase 81 (38-126) U/L Troponin I (0.000-0.034) ng/mL Total Protein 6.8 (6.3-8.2) g/dL Total Protein (PEP) (6.2-8.2) g/dL Albumin 3.4 L (3.5-5.0) g/dL Albumin (PEP) (3.80-4.90) g/dL Lktsh-2-Psirhnaok (0.10-0.40) g/dL Canjy-7-Lnhrhcacw (0.60-1.00) g/dL Beta Globulins (0.60-1.30) g/dL Gamma Globulins (0.70-1.50) g/dL PEP Interpretation Vitamin B12 (200.0-944.0) pg/mL RBC Folate (280 - 791) ng/mL Procalcitonin (0.02-0.09) ng/mL Urine Color Urine Appearance (Clear) Urine pH (5.0-8.0) Ur Specific [place] (1.001-1.035) Urine Protein (Negative) Urine Glucose (UA) (Negative) Urine Ketones (Negative) Urine Blood (Negative) Urine Nitrite (Negative) Urine Bilirubin (Negative) Urine Urobilinogen (<2.0) mg/dL Ur Leukocyte Esterase (Negative) Serum EMILEE Interpret Rheumatoid Factor (0-15) IU/mL PIPO Screen (NEGATIVE) Free [place] LC, Quant (0.33-1.94) mg/dL Free Lambda LC, Quant (0.57-2.63) mg/dL Blood Type Blood Type Confirm Blood Type Recheck Bld Type Recheck Status Antibody Screen Spec Expiration Date 11/02/19 11/02/19 11/02/19 Range/Units 22:34 22:34 22:34 WBC (3.8-10.6) k/uL RBC (4.30-5.90) m/uL Hgb (13.0-17.5) gm/dL Hct (39.0-53.0) % MCV (80.0-100.0) fL MCH (25.0-35.0) pg MCHC (31.0-37.0) g/dL RDW (11.5-15.5) % Plt Count (150-450) k/uL Neutrophils % % Lymphocytes % % Monocytes % % Eosinophils % % Basophils % % Neutrophils # (1.3-7.7) k/uL Lymphocytes # (1.0-4.8) k/uL Monocytes # (0-1.0) k/uL Eosinophils # (0-0.7) k/uL Basophils # (0-0.2) k/uL Differential Comment Manual Slide Review Hypochromasia Anisocytosis Anisocytosis (manual) Macrocytosis Ovalocytes Rouleaux PT 9.6 (9.0-12.0) sec INR 0.9 (<1.2) APTT 23.9 (22.0-30.0) sec Sodium (137-145) mmol/L Potassium (3.5-5.1) mmol/L Chloride (98-107) mmol/L Carbon Dioxide (22-30) mmol/L Anion Gap mmol/L BUN (9-20) mg/dL Creatinine (0.66-1.25) mg/dL Est GFR (CKD-EPI)AfAm (>60 ml/min/1.73 sqM) Est GFR (CKD-EPI)NonAf (>60 ml/min/1.73 sqM) Glucose (74-99) mg/dL Plasma Lactic Acid Juan (0.7-2.0) mmol/L Calcium (8.4-10.2) mg/dL Iron (65-175) ug/dL TIBC (228-460) ug/dL % Saturation (15.00-50.00) Ferritin (22.0-322.0) ng/mL Total Bilirubin (0.2-1.3) mg/dL AST (17-59) U/L ALT (4-49) U/L Alkaline Phosphatase (38-126) U/L Troponin I <0.012 (0.000-0.034) ng/mL Total Protein (6.3-8.2) g/dL Total Protein (PEP) (6.2-8.2) g/dL Albumin (3.5-5.0) g/dL Albumin (PEP) (3.80-4.90) g/dL Bfsba-3-Jjqmgtuzu (0.10-0.40) g/dL Meehf-8-Urdfcrckj (0.60-1.00) g/dL Beta Globulins (0.60-1.30) g/dL Gamma Globulins (0.70-1.50) g/dL PEP Interpretation Vitamin B12 (200.0-944.0) pg/mL RBC Folate (280 - 791) ng/mL Procalcitonin (0.02-0.09) ng/mL Urine Color Urine Appearance (Clear) Urine pH (5.0-8.0) Ur Specific [place] (1.001-1.035) Urine Protein (Negative) Urine Glucose (UA) (Negative) Urine Ketones (Negative) Urine Blood (Negative) Urine Nitrite (Negative) Urine Bilirubin (Negative) Urine Urobilinogen (<2.0) mg/dL Ur Leukocyte Esterase (Negative) Serum EMILEE Interpret Rheumatoid Factor (0-15) IU/mL PIPO Screen (NEGATIVE) Free [place] LC, Quant (0.33-1.94) mg/dL Free Lambda LC, Quant (0.57-2.63) mg/dL Blood Type Blood Type Confirm AB Negative Blood Type Recheck Bld Type Recheck Status Antibody Screen Spec Expiration Date 11/02/19 11/03/19 11/03/19 Range/Units 23:33 01:20 07:43 WBC (3.8-10.6) k/uL RBC (4.30-5.90) m/uL Hgb (13.0-17.5) gm/dL Hct (39.0-53.0) % MCV (80.0-100.0) fL MCH (25.0-35.0) pg MCHC (31.0-37.0) g/dL RDW (11.5-15.5) % Plt Count (150-450) k/uL Neutrophils % % Lymphocytes % % Monocytes % % Eosinophils % % Basophils % % Neutrophils # (1.3-7.7) k/uL Lymphocytes # (1.0-4.8) k/uL Monocytes # (0-1.0) k/uL Eosinophils # (0-0.7) k/uL Basophils # (0-0.2) k/uL Differential Comment Manual Slide Review Hypochromasia Anisocytosis Anisocytosis (manual) Macrocytosis Ovalocytes Rouleaux PT (9.0-12.0) sec INR (<1.2) APTT (22.0-30.0) sec Sodium (137-145) mmol/L Potassium (3.5-5.1) mmol/L Chloride (98-107) mmol/L Carbon Dioxide (22-30) mmol/L Anion Gap mmol/L BUN (9-20) mg/dL Creatinine (0.66-1.25) mg/dL Est GFR (CKD-EPI)AfAm (>60 ml/min/1.73 sqM) Est GFR (CKD-EPI)NonAf (>60 ml/min/1.73 sqM) Glucose (74-99) mg/dL Plasma Lactic Acid Juan <0.5 L (0.7-2.0) mmol/L Calcium (8.4-10.2) mg/dL Iron (65-175) ug/dL TIBC (228-460) ug/dL % Saturation (15.00-50.00) Ferritin (22.0-322.0) ng/mL Total Bilirubin (0.2-1.3) mg/dL AST (17-59) U/L ALT (4-49) U/L Alkaline Phosphatase (38-126) U/L Troponin I (0.000-0.034) ng/mL Total Protein (6.3-8.2) g/dL Total Protein (PEP) (6.2-8.2) g/dL Albumin (3.5-5.0) g/dL Albumin (PEP) (3.80-4.90) g/dL Ssmfe-2-Gbxryqkzv (0.10-0.40) g/dL Gbidp-7-Myxyqjwii (0.60-1.00) g/dL Beta Globulins (0.60-1.30) g/dL Gamma Globulins (0.70-1.50) g/dL PEP Interpretation Vitamin B12 (200.0-944.0) pg/mL RBC Folate (280 - 791) ng/mL Procalcitonin (0.02-0.09) ng/mL Urine Color Yellow Urine Appearance Clear (Clear) Urine pH 5.5 (5.0-8.0) Ur Specific [place] 1.013 (1.001-1.035) Urine Protein Negative (Negative) Urine Glucose (UA) Negative (Negative) Urine Ketones Negative (Negative) Urine Blood Negative (Negative) Urine Nitrite Negative (Negative) Urine Bilirubin Negative (Negative) Urine Urobilinogen <2.0 (<2.0) mg/dL Ur Leukocyte Esterase Negative (Negative) Serum EMILEE Interpret Rheumatoid Factor (0-15) IU/mL PIPO Screen (NEGATIVE) Free [place] LC, Quant (0.33-1.94) mg/dL Free Lambda LC, Quant (0.57-2.63) mg/dL Blood Type AB Negative Blood Type Confirm Blood Type Recheck No Previous Record Bld Type Recheck Status CABO Indicated Antibody Screen NEGATIVE Spec Expiration Date 11/05/2019 - 233211/03/19 11/03/19 11/03/19 Range/Units 07:43 07:43 07:43 WBC (3.8-10.6) k/uL RBC (4.30-5.90) m/uL Hgb (13.0-17.5) gm/dL Hct (39.0-53.0) % MCV (80.0-100.0) fL MCH (25.0-35.0) pg MCHC (31.0-37.0) g/dL RDW (11.5-15.5) % Plt Count (150-450) k/uL Neutrophils % % Lymphocytes % % Monocytes % % Eosinophils % % Basophils % % Neutrophils # (1.3-7.7) k/uL Lymphocytes # (1.0-4.8) k/uL Monocytes # (0-1.0) k/uL Eosinophils # (0-0.7) k/uL Basophils # (0-0.2) k/uL Differential Comment Manual Slide Review Hypochromasia Anisocytosis Anisocytosis (manual) Macrocytosis Ovalocytes Rouleaux PT (9.0-12.0) sec INR (<1.2) APTT (22.0-30.0) sec Sodium (137-145) mmol/L Potassium (3.5-5.1) mmol/L Chloride (98-107) mmol/L Carbon Dioxide (22-30) mmol/L Anion Gap mmol/L BUN (9-20) mg/dL Creatinine (0.66-1.25) mg/dL Est GFR (CKD-EPI)AfAm (>60 ml/min/1.73 sqM) Est GFR (CKD-EPI)NonAf (>60 ml/min/1.73 sqM) Glucose (74-99) mg/dL Plasma Lactic Acid Juan (0.7-2.0) mmol/L Calcium (8.4-10.2) mg/dL Iron (65-175) ug/dL TIBC (228-460) ug/dL % Saturation (15.00-50.00) Ferritin (22.0-322.0) ng/mL Total Bilirubin (0.2-1.3) mg/dL AST (17-59) U/L ALT (4-49) U/L Alkaline Phosphatase (38-126) U/L Troponin I (0.000-0.034) ng/mL Total Protein (6.3-8.2) g/dL Total Protein (PEP) 5.5 L (6.2-8.2) g/dL Albumin (3.5-5.0) g/dL Albumin (PEP) 2.49 L (3.80-4.90) g/dL Bvfnc-6-Gmeelszmi 0.48 H (0.10-0.40) g/dL Zumdr-7-Qjwziacmo 0.92 (0.60-1.00) g/dL Beta Globulins 0.77 (0.60-1.30) g/dL Gamma Globulins 0.84 (0.70-1.50) g/dL PEP Interpretation Vitamin B12 (200.0-944.0) pg/mL RBC Folate 796 H (280 - 791) ng/mL Procalcitonin 0.18 H (0.02-0.09) ng/mL Urine Color Urine Appearance (Clear) Urine pH (5.0-8.0) Ur Specific [place] (1.001-1.035) Urine Protein (Negative) Urine Glucose (UA) (Negative) Urine Ketones (Negative) Urine Blood (Negative) Urine Nitrite (Negative) Urine Bilirubin (Negative) Urine Urobilinogen (<2.0) mg/dL Ur Leukocyte Esterase (Negative) Serum EMILEE Interpret Rheumatoid Factor (0-15) IU/mL PIPO Screen NEGATIVE (NEGATIVE) Free [place] LC, Quant 7.24 H (0.33-1.94) mg/dL Free Lambda LC, Quant 5.56 H (0.57-2.63) mg/dL Blood Type Blood Type Confirm Blood Type Recheck Bld Type Recheck Status Antibody Screen Spec Expiration Date 11/03/19 11/04/19 11/04/19 Range/Units 12:09 06:35 06:35 WBC 1.3 L* (3.8-10.6) k/uL RBC 2.41 L (4.30-5.90) m/uL Hgb 7.2 L (13.0-17.5) gm/dL Hct 23.0 L (39.0-53.0) % MCV 95.2 (80.0-100.0) fL MCH 29.9 (25.0-35.0) pg MCHC 31.4 (31.0-37.0) g/dL RDW 20.4 H (11.5-15.5) % Plt Count 62 L (150-450) k/uL Neutrophils % 80 % Lymphocytes % 12 % Monocytes % 5 % Eosinophils % 0 % Basophils % 0 % Neutrophils # 1.0 L (1.3-7.7) k/uL Lymphocytes # 0.2 L (1.0-4.8) k/uL Monocytes # 0.1 (0-1.0) k/uL Eosinophils # 0.0 (0-0.7) k/uL Basophils # 0.0 (0-0.2) k/uL Differential Comment Manual Slide Review Hypochromasia Slight Anisocytosis Moderate Anisocytosis (manual) Macrocytosis Slight Ovalocytes Rouleaux PT (9.0-12.0) sec INR (<1.2) APTT (22.0-30.0) sec Sodium 143 (137-145) mmol/L Potassium 4.1 (3.5-5.1) mmol/L Chloride 116 H (98-107) mmol/L Carbon Dioxide 17 L (22-30) mmol/L Anion Gap 10 mmol/L BUN 34 H (9-20) mg/dL Creatinine 0.67 (0.66-1.25) mg/dL Est GFR (CKD-EPI)AfAm >90 (>60 ml/min/1.73 sqM) Est GFR (CKD-EPI)NonAf >90 (>60 ml/min/1.73 sqM) Glucose 142 H (74-99) mg/dL Plasma Lactic Acid Juan (0.7-2.0) mmol/L Calcium 8.3 L (8.4-10.2) mg/dL Iron 39 L (65-175) ug/dL TIBC 223 L (228-460) ug/dL % Saturation 17.49 (15.00-50.00) Ferritin 235.1 (22.0-322.0) ng/mL Total Bilirubin (0.2-1.3) mg/dL AST (17-59) U/L ALT (4-49) U/L Alkaline Phosphatase (38-126) U/L Troponin I (0.000-0.034) ng/mL Total Protein (6.3-8.2) g/dL Total Protein (PEP) (6.2-8.2) g/dL Albumin (3.5-5.0) g/dL Albumin (PEP) (3.80-4.90) g/dL Sbefp-0-Wbxhhbdqn (0.10-0.40) g/dL Kohid-3-Jvwyqcfsr (0.60-1.00) g/dL Beta Globulins (0.60-1.30) g/dL Gamma Globulins (0.70-1.50) g/dL PEP Interpretation Vitamin B12 341.0 (200.0-944.0) pg/mL RBC Folate (280 - 791) ng/mL Procalcitonin (0.02-0.09) ng/mL Urine Color Urine Appearance (Clear) Urine pH (5.0-8.0) Ur Specific [place] (1.001-1.035) Urine Protein (Negative) Urine Glucose (UA) (Negative) Urine Ketones (Negative) Urine Blood (Negative) Urine Nitrite (Negative) Urine Bilirubin (Negative) Urine Urobilinogen (<2.0) mg/dL Ur Leukocyte Esterase (Negative) Serum EMILEE Interpret Rheumatoid Factor 6 (0-15) IU/mL PIPO Screen (NEGATIVE) Free [place] LC, Quant (0.33-1.94) mg/dL Free Lambda LC, Quant (0.57-2.63) mg/dL Blood Type Blood Type Confirm Blood Type Recheck Bld Type Recheck Status Antibody Screen Spec Expiration Date Disposition Clinical Impression: Pancytopenia Disposition: ADMITTED IP TO THIS [facility] Condition: Serious
[2019-11-02 22:57] LABS: WBC 0.9 k/uL (3.8-10.6)
[2019-11-02 23:01] LABS: INR 0.9 (<1.2); Partial Thromboplastin Time 23.9 sec (22.0-30.0); Prothrombin Time 9.6 sec (9.0-12.0)
[2019-11-02] MEDS ORDERED: SODIUM CHLORIDE 0.9% 1,000 ML IV ONE (23:07)
[2019-11-02 23:09] LABS: ALT 12 U/L (4-49); AST 22 U/L (17-59); African American GFR (CKD) >90 (>60 ml/min/1.73 sqM); Albumin 3.4 g/dL (3.5-5.0); Alkaline Phosphatase 81 U/L (38-126); Anion Gap 12 mmol/L; Anisocytosis (M) Present; Blood Urea Nitrogen 46 mg/dL (9-20); Calcium 8.4 mg/dL (8.4-10.2); Carbon Dioxide 18 mmol/L (22-30); Chloride 110 mmol/L (98-107); Glucose 118 mg/dL (74-99); Non-African American GFR(CKD) 79 (>60 ml/min/1.73 sqM); Platelet Count 82 k/uL (150-450); Potassium 3.8 mmol/L (3.5-5.1); Rouleaux Present; Sodium 140 mmol/L (137-145); Total Bilirubin 0.4 mg/dL (0.2-1.3); Total Protein 6.8 g/dL (6.3-8.2)
[2019-11-02 23:12] LABS: Ovalocytes Present
[2019-11-02] MEDS ORDERED: CEFEPIME 2 GM in SODIUM CHLORIDE 0.9% 100 ML IVPB ONE (23:15)
[2019-11-03] MEDS ORDERED: ALBUTEROL NEBULIZED 2.5 MG/3 ML INHALATION STA (01:16)
[2019-11-03] MEDS ORDERED: MAGNESIUM HYDROXIDE 2,400 MG/10 ML CUP PO PRN (01:26)
[2019-11-03] MEDS ORDERED: ONDANSETRON 4 MG/2 ML VIAL IVP PRN (01:26)
[2019-11-03] MEDS ORDERED: NALOXONE 0.4 MG/ML 1 ML VIAL IV PRN (01:26)
[2019-11-03] MEDS ORDERED: MAG HYDROX/AL HYDROX/SIMETH 30 ML CUP PO PRN (01:26)
[2019-11-03] MEDS ORDERED: ALBUTEROL NEBULIZED 2.5 MG/3 ML INHALATION PRN (01:29)
[2019-11-03] MEDS ORDERED: CEFEPIME 2 GM in SODIUM CHLORIDE 0.9% 100 ML IVPB SCH (01:45)
[2019-11-03 01:52] LABS: Appearance,Urine Clear (Clear); Bilirubin,Urine Negative (Negative); Blood,Urine Negative (Negative); Color,Urine Yellow; Glucose,Urine (UA) Negative (Negative); Ketones,Urine Negative (Negative); Leukocyte Esterase,Urine Negative (Negative); Nitrite,Urine Negative (Negative); PH, Urine 5.5 (5.0-8.0); Protein,Urine Negative (Negative); Specific Gravity,Urine 1.013 (1.001-1.035); Urobilinogen,Urine <2.0 mg/dL (<2.0)
[2019-11-03] MEDS: SODIUM CHLORIDE 0.9% 1,000 ML IV SCH ×3 (02:16→19:45)
--- NOTE | 2019-11-03 07:34 | P.HPIM ---
History of Present Illness On-call hospitalist covering Dr. Woodson 11/03-11/06 This is a pleasant 63 years old male with past medical history of coronary artery disease status post stent placement, COPD, DVT, gastroesophageal reflux disease, hyperlipidemia, hypertension, memory impairment, osteoarthritis, rheumatoid arthritis, hip dislocation, psoriasis, gout, back and hip pain. Left ankle wound with culture growing Pseudomonas. Peripheral vascular disease with stent placement. Status post back surgery with fusion. He presents to the hospital because his parts expediter who sees him for psoriasis Dr. steen noticed low white blood cell count and his blood. Patient has been complaining of from dyspnea for about a week, associated with a dry cough and right-sided chest pain for the last 3-4 days about a/10 in severity. Like something grabbing his chest increased with movement and coughing and deep inspiration. Also has been complaining of from left ankle ulcer for about 2-3 years now Patient has history of DVT about 20 years ago however his mother has been stopped by his doctor Patient still smokes cigarettes, he states that cigarette was about 2 weeks ago and he states he smoked sporadically. No alcohol or illicit drugs On the presentation patient had fever off 100.1, blood pressure is 97/60. Heart rate 87. He saturating 92% on 4 L oxygen. Labs showing WBC of 0.9, previously was normal. Hemoglobin is 8.1, platelets is 82. Liver enzymes not elevated, troponin is less than 0.012. EKG showing normal sinus rhythm at 83 with no sign ificant ST-T changes and QTC of 493. Chest x-ray: No acute consultation are process by radiologist. Urine is negative. 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 Denied any sore throat. CARDIOVASCULAR: No orthopnea, PND, no palpitations, no syncope. PULMONARY: no hemoptysis. GASTROINTESTINAL: No diarrhea, no nausea, no vomiting, no abdominal pain. Normoactive bowel sounds. NEUROLOGICAL: No headaches, no weakness, no numbness. HEMATOLOGICAL: Denies any bleeding or petechiae. GENITOURINARY: Denies any burning micturition, frequency, or urgency. MUSCULOSKELETAL/RHEUMATOLOGICAL: Denies any joint pain, swelling, or any muscle pain. ENDOCRINE: Denies any polyuria or polydipsia. Past Medical History Past Medical History: Coronary Artery Disease (CAD), COPD, Deep Vein Thrombosis (DVT), GERD/Reflux, Hyperlipidemia, Hypertension, Memory Impairment, Osteoarthritis (OA), Rheumatoid Arthritis (RA), Skin Disorder, Vascular Disorder Additional Past Medical History / Comment(s): Multiple dislocations of left total hip, psoriasis, gout, hx of DVT both legs. Back and Hip pain. Current open left ankle wound with recent wound culture positive for pseudomonas. History of Any Multi-Drug Resistant Organisms: MRSA Date of last positivie culture/infection: 06/09/17 MDRO Source:: Left Ankle Past Surgical History: Back Surgery, Heart Catheterization With Stent, Hernia Re pair, Joint Replacement, Orthopedic Surgery Additional Past Surgical History / Comment(s): 09/28/17 arthrectomy, balloon angioplasty with stent left SFA, Cardiac catheterization with 4 stents placed - 2012, stents placed in bilateral legs & thinks stents in abd aorta, Back surgery - fusion and anuel in back. Left Hip replacement, cataract eye sx. Left ankle has screws. LAPARASCOPIC SHANTANU FUNDOPLASTY. 10/06/2018 LSFA STENT AND ARTHRECTOMY. Past Anesthesia/Blood Transfusion Reactions: Previous Problems w/ Anesthesia Additional Past Anesthesia/Blood Transfusion Reaction / Comment(s): "HAS CONFUSION AND DISORIENTATION POST ANESTHESIA " on occasion. 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 No . No travel as of late. no animals in the home. no current alcohol/ tobacco use Smoking Status: Former smoker Past Alcohol Use History: None Reported Additional Past Alcohol Use History / Comment(s): patient states he quit smoking in 2019 Past Drug Use History: None Reported - Past Family History Mother Family Medical History: No Reported History Additional Family Medical History / Comment(s): Father History Unknown: Yes Family Medical History: Unable to Obtain Medications and Allergies Home Medications Medication Instructions Recorded Confirmed Type Citalopram Hydrobromide 20 mg PO DAILY 04/05/14 09/12/19 History [Citalopram HBr] Aspirin [Adult Low Dose Aspirin EC] 81 mg PO DAILY 09/17/17 09/12/19 History Allopurinol [Zyloprim] 300 mg PO DAILY 09/18/17 09/12/19 History Cetirizine HCl [Zyrtec] 10 mg PO DAILY 09/29/18 09/12/19 History Donepezil HCl [Aricept] 5 mg PO DAILY 10/06/18 09/12/19 History Gabapentin [Neurontin] 300 mg PO TID 05/17/19 09/12/19 History Ipratropium-Albuterol Nebulize 3 ml INHALATION RT-TID 06/18/19 09/12/19 History [Duoneb 0.5 mg-3 mg/3 ml Soln] Albuterol Sulfate [Proair Hfa] 2 puff INHALATION RT-Q6H PRN 07/30/19 09/12/19 History Atorvastatin Calcium [Lipitor] 80 mg PO DAILY 09/12/19 09/12/19 History Carvedilol [Coreg] 3.125 mg PO BID 09/12/19 09/12/19 History Ferrous Sulfate [Iron] 325 mg PO DAILY 09/12/19 09/12/19 History Fluocinonide/Emollient Base 1 applic TOPICAL BID 09/12/19 09/12/19 History [Fluocinonide-E 0.05% Cream] Furosemide [Lasix] 40 mg PO DAILY 09/12/19 09/12/19 History Lisinopril [Zestril] 10 mg PO DAILY 09/12/19 09/12/19 History Ticagrelor [Brilinta] 90 mg PO BID 09/12/19 09/12/19 History hydrOXYzine HCL 25 mg PO Q6H PRN 09/12/19 09/12/19 History predniSONE 0 mg PO DIRECTED 16 Days #40 tab 09/16/19 Rx Allergies Allergy/AdvReac Type Severity Reaction Status Date / Time hydromorphone [From Dilaudid] AdvReac Confusion Verified 11/02/19 21:46 Physical Exam Vitals: Vital Signs Temp Pulse Pulse Resp BP BP Pulse Ox 11/03/19 05:05 100.1 F H 87 20 97/60 92 L 11/03/19 03:02 98.3 F 83 22 100/51 100 11/03/19 02:00 85 18 105/58 98 11/03/19 01:50 82 11/03/19 01:43 90 11/03/19 01:00 89 20 111/70 96 11/03/19 00:39 88 18 111/70 96 11/03/19 00:00 77 19 105/63 100 11/02/19 23:00 78 20 101/63 99 11/02/19 21:43 99.0 F 93 20 90/53 95 Intake and Output 11/02/19 11/03/19 11/03/19 22:59 06:59 14:59 Intake Total 590 Balance 590 Intake: Oral 590 Other: Voiding Method Urinal Weight 54.431 kg 52.5 kg GENERAL: The patient is alert and oriented x3, not in any acute distress. Well developed, well nourished. HEENT: Pupils are round and equally reacting to light. EOMI. No scleral icterus. No conjunctival pallor. Normocephalic, atraumatic. No pharyngeal erythema. No thyromegaly. CARDIOVASCULAR: S1 and S2 present. No murmurs, rubs, or gallops. -PULMONARY: Chest is clear to auscultation, bilateral expiratory wheezing with tachypnea ABDOMEN: Soft, nontender, nondistended, normoactive bowel sounds. No palpable organomegaly. MUSCULOSKELETAL: No joint swelling or deformity. -EXTREMITIES: No cyanosis, clubbing, or pedal edema. Left ankle ulcer over the medial malleolus, about 1x 0.5 inches in diameter, with no surrounding cellulitis or purulent discharge NEUROLOGICAL: Gross neurological examination did not reveal any focal deficits. SKIN: No rashes. No petechiae Results CBC & Chem 7: 11/02/19 22:34 11/02/19 22:34 Labs: Abnormal Lab Results - Last 24 Hours (Table) 11/02/19 11/02/19 Range/Units 22:34 22:34 WBC 0.9 L* (3.8-10.6) k/uL RBC 2.61 L (4.30-5.90) m/uL Hgb 8.1 L (13.0-17.5) gm/dL Hct 24.5 L (39.0-53.0) % RDW 20.7 H (11.5-15.5) % Plt Count 82 L (150-450) k/uL Chloride 110 H (98-107) mmol/L Carbon Dioxide 18 L (22-30) mmol/L BUN 46 H (9-20) mg/dL Glucose 118 H (74-99) mg/dL Albumin 3.4 L (3.5-5.0) g/dL Thrombosis Risk Factor Assmnt - Choose All That Apply Any of the Below Risk Factors Present?: Yes Each Factor Represents 1 point: Abnormal pulmonary function (COPD) Other Risk Factors: Yes Each Risk Factor Represents 2 Points: Age 61-74 years Each Risk Factor Represents 3 Points: History of DVT/PE Other congenital or acquired thrombophilia - If yes, enter type in comment: No Thrombosis Risk Factor Assessment Total Risk Factor Score: 6 Thrombosis Risk Factor Assessment Level: High Risk Assessment and Plan Assessment: Pancytopenia Possible Febrile neutropenia Sepsis secondary to above with SIRS syndrome with fever, leukopenia, and tachypnea. Chronic Left ankle ulcer over the medial malleolus with history of Pseudomonas in the culture Acute COPD exacerbation Hypertension Hyperlipidemia History of coronary artery disease status post 4 stents History of the venous thrombosis GERD Memory impairment Osteoarthritis Rheumatoid arthritis History of dislocation Psoriasis Chronic hip and back pain status post back surgery and fusion Plan: This is a pleasant 63 years old male who presents with febrile pancytopenia/neutropenia. Check lactic acid, follow-up pancytopenia numbers especially WBC with differential. Consults on follow-up recommendation by Infectious disease and hematology consults. Continue with antibiotic as per infectious disease recommendation and follow-up culture results. Continue with steroids, breathing treatments and oxygen. We'll check Doppler. Patient counseled to quit smoking. Nicotine patch Labs and medication were reviewed.. Continue same treatment. Continue with symptomatic treatment. Resume home medication. Monitor lytes and vitals. DVT and GI prophylaxis. Further recommendations of the clinical course of the patient DVT prophylaxis: Subcutaneous heparin GI Prophylaxis: Pepcid PT/OT: Pending Prognosis is guarded
[2019-11-03] MEDS: CARVEDILOL 3.125 MG TAB PO SCH ×2 (07:41→15:29)
[2019-11-03] MEDS: ASPIRIN 81 MG PO SCH (07:41)
[2019-11-03] MEDS: CITALOPRAM HYDROBROMIDE 20 MG TAB PO SCH (07:41)
[2019-11-03] MEDS: LORATADINE 10 MG TAB PO SCH (07:42)
[2019-11-03] MEDS: TICAGRELOR 90 MG TAB PO SCH ×2 (07:42→22:11)
[2019-11-03] MEDS: LISINOPRIL 10 MG TAB PO SCH ×2 (07:42→07:45)
[2019-11-03] MEDS: GABAPENTIN 300 MG CAP PO SCH ×3 (07:42→21:33)
[2019-11-03] MEDS: DONEPEZIL 5 MG TAB PO SCH (07:42)
[2019-11-03] MEDS: HYDROcodone/APAP 5-325MG 1 EACH TAB PO PRN ×4 (07:42→23:02)
[2019-11-03] MEDS: FERROUS SULFATE 325 MG TAB PO SCH (07:43)
[2019-11-03] MEDS: ATORVASTATIN 80 MG TAB PO SCH (07:43)
[2019-11-03] MEDS: FUROSEMIDE 40 MG TAB PO SCH (07:43)
[2019-11-03] MEDS ORDERED: IPRATROPIUM-ALBUTEROL 3 ML NEB INHALATION SCH (08:00)
[2019-11-03] MEDS: CEFEPIME 2 GM in SODIUM CHLORIDE 0.9% 100 ML IVPB SCH ×3 (08:00→23:00)
[2019-11-03] MEDS: methylPREDNISolone SOD SUCCI 125 MG/2 ML VIAL IV SCH ×2 (08:01→12:48)
[2019-11-03] MEDS: BETAMETHASONE DIPROPIONATE 0.05% CREAM 15 GM TUBE TOPICAL SCH ×2 (08:02→22:11)
[2019-11-03] MEDS: HEPARIN SODIUM,PORCINE 5,000 UNIT/ML 1 ML VIAL SQ SCH ×2 (08:03→21:33)
[2019-11-03] MEDS: FAMOTIDINE 20 MG/2 ML VIAL IV SCH ×2 (08:03→21:32)
[2019-11-03] MEDS: NICOTINE 14MG/24HR PATCH TRANSDERM SCH (08:06)
--- NOTE | 2019-11-03 09:08 | US ---
EXAMINATION TYPE: US venous doppler duplex LE DATE OF EXAM: 11/03/2019 8:47 AM COMPARISON: NONE CLINICAL HISTORY: Rule out DVT. Left leg pain SIDE PERFORMED: bilateral TECHNIQUE: The lower extremity deep venous system is examined utilizing real time linear array sonog cal with graded compression, doppler sonography and color-flow sonography. VESSELS IMAGED: External Iliac Vein (EIV) Common Femoral Vein Deep Femoral Vein Greater Saphenous Vein * Femoral Vein Popliteal Vein Small Saphenous Vein * Proximal Calf Veins (* superficial vessels) There is normal flow, compressibility, vascular waveforms. Right Leg: No evidence of DVT. Lymph node right groin = 3.3 x 0.8 x 2.2cm Left Leg: No evidence of DVT IMPRESSION: No evident deep venous thrombosis at or above the knees.
--- NOTE | 2019-11-03 12:45 | CONS ---
CONSULTATION PULMONARY/CRITICAL CARE CONSULTATION: DATE OF CONSULTATION: November 03, 2019 This is a 63-year-old male, well known to me. He does have a history of underlying COPD. That is not why he is in the hospital currently. It mentions that his chief complaint in the ER chelita shortness of breath, but actually his chief complaint is he apparently saw his cert occupational therapy asst. He sees a cert occupational therapy asst for severe psoriasis. I believe it is Dr. Chino. The patient had some blood work done and apparently he had very abnormal blood counts. His white count, hemoglobin, and platelet count were all quite low. For that reason, he was sent to the ER to be evaluated. In regard to the symptomatology, the patient just feels out of it. Just does not feel himself. Feels generalized fatigue and weakness. He really denies any worsening or increase in his shortness of breath, which is chronic secondary to his underlying COPD. His psoriasis treatment has apparently been both Humira and methotrexate, although the methotrexate was only taken for about a month and it has been discontinued. Apparently, the blood work was done in Dr. Chino's office and repeated here in the emergency room. The patient denies fever or chills. The patient denies any nausea, vomiting or diarrhea. The patient denies any worsening of his underlying COPD. No chest pain or chest discomfort. Currently, his psoriasis is under excellent control. Denies any genitourinary complaints. He actually looks quite good. I did ask him as to whether not he was smoking cigarettes and apparently according to his , he still is. CURRENT HOME MEDICATIONS: His current home medications include citalopram, aspirin, allopurinol, Zyrtec, Aricept, gabapentin, DuoNeb, albuterol inhaler, Lipitor, Coreg, iron, steroid cream, Lasix, lisinopril, Brilinta, and hydroxyzine. ALLERGIES: Allergies include DILAUDID. PAST MEDICAL HISTORY: His past medical history is positive for CAD, COPD, DVT, GERD, hyperlipidemia, hypertension, memory impairment, DJD, rheumatoid arthritis, psoriasis, chronic back pain, and a recent left ankle wound positive for Pseudomonas. The patient has also had previous MRSA infection in the past. SURGICAL HISTORY: Surgical history is quite extensive and includes, among other things, back surgery, heart catheterization with stent, hernia repair, balloon angioplasty with stent in his superficial femoral artery, lower extremity stent placement, back surgery, left hip replacement, cataract surgery, left ankle procedure, laparoscopic Rebekah fundoplication surgery, among other things. SOCIAL HISTORY: Positive for ongoing tobacco use. He probably smokes a pack a day. Denies any alcohol or illicit drug use. FAMILY HISTORY: Family history is apparently unknown. Both mother and father are or information about their health was apparently not able to be obtained. REVIEW OF SYSTEMS: CONSTITUTIONAL: Weakness and fatigue, just not himself. NEUROLOGIC: Negative. HEENT: Negative. CARDIOVASCULAR: Negative. PULMONARY: Chronic shortness of breath, cough, wheezing, chest tightness, all at baseline. GI: Negative. : Negative. RHEUMATOLOGIC: Negative. IMMUNOLOGIC: Negative. ENDOCRINOLOGIC: Negative. DERMATOLOGIC: Negative. PHYSICAL EXAMINATION: VITAL SIGNS: Current vital signs are reviewed. Temperature is 97.7, heart rate 82, respiratory rate 19, blood pressure 100/55, mean 70 and 3L saturation is 100%. GENERAL: Appears in no acute distress. Sitting in bed. No audible wheezing, use of accessory muscles or conversational dyspnea. HEENT: Examination is grossly unremarkable. Mucous membranes are moist. No oral lesions. NECK: Supple. Full range of motion. No adenopathy or thyromegaly. Neck veins are flat. CARDIOVASCULAR: Examination reveals regular rhythm and rate. S1, S2 normal. No S3, S4, or murmur. Heart rate 82. LUNGS: Reveal mild coarse rhonchi. There is slight prolongation on forced maneuver. No wheezes or crackles. Breath sounds equal bilaterally. ABDOMEN: Soft. Bowel sounds are heard. EXTREMITIES: Are intact. No cyanosis, clubbing, or edema. SKIN: Looks good. I do not see any active psoriatic lesions. At times he has had significant psoriasis. NEUROLOGIC: Examination is brief but nonfocal. LABS: Labs are reviewed. White count 0.9, hemoglobin 8.1, hematocrit 24.5, platelet count 82,000. PT, INR and PTT all normal. Sodium 140, potassium 3.8, chloride 110, CO2 of 18. Anion gap is 12. BUN and creatinine were 46 and 1.0. Lactic acid 1.3. Albumin 3.4. Urine was negative. A chest x-ray shows no active disease. Venous Dopplers study of both legs were negative. MEDICATIONS: His medications will be reviewed. We will make sure he is on appropriate medications for his underlying COPD. ASSESSMENT: 1. Pancytopenia, presumably secondary to Humira and/or methotrexate. 2. History of chronic obstructive pulmonary disease, which is stable at this time. 3. Ongoing tobacco use with nicotine addiction. 4. History of coronary artery disease. 5. History of deep venous thrombosis. 6. History of gastroesophageal reflux disease. 7. History of hyperlipidemia. 8. History of hypertension. 9. Memory impairment. 10.Degenerative joint disease. 11.History of rheumatoid arthritis. 12.Psoriasis. 13.Peripheral vascular occlusive disease. 14.Multiple other medical problems and comorbidities. PLAN: Medications are reviewed. Please see my recommendations. His COPD is at baseline. We will make sure he is on DuoNeb q.i.d. and p.r.n. and Symbicort 160/4.5, two puffs twice a day. He does not need any antibiotics or steroids. Additional recommendations and suggestions forthcoming. The patient does have an appointment to see me on Thursday in the office. At that time, finally, we will do pulmonary function testing. He is counseled about the importance of smoking cessation. MMODL / IJN: [id number] /
[2019-11-03] MEDS: IPRATROPIUM-ALBUTEROL 3 ML NEB INHALATION SCH ×2 (15:16→21:02)
[2019-11-03 16:30] LABS: Protein, Total 5.5 g/dL (6.2-8.2)
--- NOTE | 2019-11-03 18:36 | P.CONS ---
History of Present Illness - Reason for Consult Consult date: 11/03/19 pancytopenia Requesting physician: Cm Merino - Chief Complaint SOB, abn labs - History of Present Illness Mister Tineo is a very pleasant male who we have been asked to see for new onset pancytopenia. Patient states that he has psoriasis and is treated with creams, but he did start treatment with Humira about a month ago. Recently he had a cold, no antibiotics, he is + for some wt. loss, he gets cold easily. Denied any recent fevers, night sweats, lymph node swellings, nausea, vomiting, chest pains, TRAVIS, swelling of the lower extremities, bleeding, new or unusual rash, his psoriasis is actually doing very well on the treatment. Review of Systems 14 point review of systems is negative except as stated in HPI Past Medical History Past Medical History: Coronary Artery Disease (CAD), COPD, Deep Vein Thrombosis (DVT), GERD/Reflux, Hyperlipidemia, Hypertension, Memory Impairment, Osteoarth ritis (OA), Rheumatoid Arthritis (RA), Skin Disorder, Vascular Disorder Additional Past Medical History / Comment(s): Multiple dislocations of left total hip, psoriasis, gout, hx of DVT both legs. Back and Hip pain. Current open left ankle wound with recent wound culture positive for pseudomonas. History of Any Multi-Drug Resistant Organisms: MRSA Year Discovered:: 06/09/17 MDRO Source:: Left Ankle Past Surgical History: Back Surgery, Heart Catheterization With Stent, Hernia Repair, Joint Replacement, Orthopedic Surgery Additional Past Surgical History / Comment(s): 09/28/17 arthrectomy, balloon angioplasty with stent left SFA, Cardiac catheterization with 4 stents placed - 2012, stents placed in bilateral legs & thinks stents in abd aorta, Back surgery - fusion and anuel in back. Left Hip replacement, cataract eye sx. Left ankle has screws. LAPARASCOPIC SHANTANU FUNDOPLASTY. 10/06/2018 LSFA STENT AND ARTHRECTOMY. Past Anesthesia/Blood Transfusion Reactions: Previous Problems w/ Anesthesia Additional Past Anesthesia/Blood Transfusion Reaction / Comm: "HAS CONFUSION AND DISORIENTATION POST ANESTHESIA " on occasion. 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 No . No travel as of late. no animals in the home. no current alcohol/ tobacco use Smoking Status: Former smoker Past Alcohol Use History: None Reported Additional Past Alcohol Use History / Comment(s): patient states he quit smoking in 2019 Past Drug Use History: None Reported - Past Family History Mother Family Medical History: No Reported History Additional Family Medical History / Comment(s): Father History Unknown: Yes Family Medical History: Unable to Obtain Medications and Allergies Home Medications Medication Instructions Recorded Confirmed Type Gabapentin [Neurontin] 300 mg PO TID 05/17/19 11/03/19 History Ipratropium-Albuterol Nebulize 3 ml INHALATION RT-QID 06/18/19 11/03/19 History [Duoneb 0.5 mg-3 mg/3 ml Soln] Albuterol Sulfate [Proair Hfa] 2 puff INHALATION RT-Q4H PRN 07/30/19 11/03/19 History Carvedilol [Coreg] 3.125 mg PO BID 09/12/19 11/03/19 History Ferrous Sulfate [Iron] 325 mg PO DAILY 09/12/19 11/03/19 History Furosemide [Lasix] 40 mg PO DAILY 09/12/19 11/03/19 History Ticagrelor [Brilinta] 90 mg PO BID 09/12/19 11/03/19 History hydrOXYzine HCL 25 mg PO HS 09/12/19 11/03/19 History Adalimumab [Humira Crohn's] 40 mg SQ Q14D 11/03/19 11/03/19 History Allopurinol [Zyloprim] 300 mg PO DAILY 11/03/19 11/03/19 History Aspirin EC [Ecotrin Low Dose] 81 mg PO DAILY 11/03/19 11/03/19 History Atorvastatin [Lipitor] 80 mg PO DAILY 11/03/19 11/03/19 History Citalopram Hydrobromide [CeleXA] 20 mg PO DAILY 11/03/19 11/03/19 History Donepezil [Aricept] 5 mg PO DAILY 11/03/19 11/03/19 History Folic Acid 1 mg PO DIRECTED 11/03/19 11/03/19 History Furosemide [Lasix] 20 mg PO HS 11/03/19 11/03/19 History Lisinopril [Zestril] 10 mg PO DAILY 11/03/19 11/03/19 History Methotrexate Sodium [Methotrexate] 15 mg PO Q7D 11/03/19 11/03/19 History Metoprolol Tartrate [Lopressor] 50 mg PO BID 11/03/19 11/03/19 History Triamcinolone 0.1% Cream [Kenalog 1 applicatio TOPICAL BID 11/03/19 11/03/19 History 0.1% Cream] traMADol HCL [traMADol HCL ER] 100 mg PO Q12H PRN 11/03/19 11/03/19 History Allergies Allergy/AdvReac Type Severity Reaction Status Date / Time hydromorphone [From Dilaudid] AdvReac Confusion Verified 11/03/19 10:18 Physical Exam Vitals: Vital Signs Temp Pulse Pulse Resp BP BP Pulse Ox 11/03/19 15:27 87 11/03/19 15:18 83 11/03/19 11:41 97.7 F 82 19 100/55 100 11/03/19 07:37 96 11/03/19 07:25 88 11/03/19 05:05 100.1 F H 87 20 97/60 92 L 11/03/19 03:02 98.3 F 83 22 100/51 100 11/03/19 02:00 85 18 105/58 98 11/03/19 01:50 82 11/03/19 01:43 90 11/03/19 01:00 89 20 111/70 96 11/03/19 00:39 88 18 111/70 96 11/03/19 00:00 77 19 105/63 100 11/02/19 23:00 78 20 101/63 99 11/02/19 21:43 99.0 F 93 20 90/53 95 Intake and Output 11/03/19 11/03/19 11/03/19 06:59 14:59 22:59 Intake Total 590 600 Output Total 200 Balance 590 400 Intake: Oral 590 600 Output: Urine 200 Other: Voiding Method Urinal Urinal Urinal Weight 52.5 kg 52.5 kg - Constitutional General appearance: cooperative, no acute distress, thin - EENT Eyes: anicteric sclerae, EOMI ENT: hearing grossly normal, normal oropharynx - Neck Neck: no lymphadenopathy - Respiratory Respiratory: bilateral: CTA - Cardiovascular Rhythm: regular Heart sounds: normal: S1, S2 Abnormal Heart Sounds: no systolic murmur, no diastolic murmur, no rub, no S3 Gallop, no S4 Gallop, no click, no other leg Peripheral Edema: bilateral: None - Gastrointestinal General gastrointestinal: no absent bowel sounds, no decreased bowel sounds, no distended, no hepatomegaly, no hyperactive bowel sounds, normal bowel sounds, no organomegaly, no rigid, no scaphoid, soft, no splenomegaly, no tenderness, no umbilical hernia, no ventral hernia - Integumentary Thickened, dry skin on the bilateral lower extremities, bilateral elbows, doesn't appear to have any active psoriasis - Neurologic Neurologic: CNII-XII intact - Musculoskeletal Musculoskeletal: generalized weakness, strength equal bilaterally - Psychiatric Psychiatric: A&O x's 3, appropriate affect, intact judgment & insight Results CBC & Chem 7: 11/02/19 22:34 11/02/19 22:34 Labs: Abnormal Lab Results - Last 24 Hours (Table) 11/02/19 11/02/19 11/03/19 Range/Units 22:34 22:34 07:43 WBC 0.9 L* (3.8-10.6) k/uL RBC 2.61 L (4.30-5.90) m/uL Hgb 8.1 L (13.0-17.5) gm/dL Hct 24.5 L (39.0-53.0) % RDW 20.7 H (11.5-15.5) % Plt Count 82 L (150-450) k/uL Chloride 110 H (98-107) mmol/L Carbon Dioxide 18 L (22-30) mmol/L BUN 46 H (9-20) mg/dL Glucose 118 H (74-99) mg/dL Plasma Lactic Acid Juan <0.5 L (0.7-2.0) mmol/L Total Protein (PEP) (6.2-8.2) g/dL Albumin 3.4 L (3.5-5.0) g/dL 11/03/19 Range/Units 07:43 WBC (3.8-10.6) k/uL RBC (4.30-5.90) m/uL Hgb (13.0-17.5) gm/dL Hct (39.0-53.0) % RDW (11.5-15.5) % Plt Count (150-450) k/uL Chloride (98-107) mmol/L Carbon Dioxide (22-30) mmol/L BUN (9-20) mg/dL Glucose (74-99) mg/dL Plasma Lactic Acid Juan (0.7-2.0) mmol/L Total Protein (PEP) 5.5 L (6.2-8.2) g/dL Albumin (3.5-5.0) g/dL Venous US: report reviewed (bilateral lower extremities negative for DVT) Assessment and Plan (1) Pancytopenia Narrative/Plan: Pancytopenia workup has been ordered. Ultrasound of the liver and spleen to evaluate size. Patient recently started treatment with monoclonal antibody Humira but, nothing in the literature about this causing severe pancytopenia. Transfuse for hemoglobin less than 7. Transfuse to keep platelets greater than 10,000 unless patient is symptomatic GCSF for low WBC. Current Visit: Yes Status: Acute Priority: High Code(s): D61.818 - OTHER PANCYTOPENIA SNOMED Code(s): 126279722 Plan: Doctor attests: I performed a history and physical examination of this patient, developed impression and plan of care, discussed with dictator. I agree with dictators note, documented as a scribe.
[2019-11-03 19:16] LABS: Ferritin 235.1 ng/mL (22.0-322.0)
[2019-11-03 19:21] LABS: % Iron Saturation 17.49 (15.00-50.00)
[2019-11-03] MEDS: FILGRASTIM-SNDZ 300 MCG/0.5 ML SYRINGE SQ SCH (19:42)
[2019-11-03] MEDS: SYMBICORT 160-4.5 MCG INHALER INHALATION SCH (21:02)
[2019-11-03] MEDS: hydrOXYzine HCL 25 MG TAB PO PRN (21:33)
--- NOTE | 2019-11-03 23:27 | P.CONS ---
History of Present Illness - Reason for Consult Consult date: 11/03/19 fever and neutropenia Requesting physician: Kenyon E Sheet - Chief Complaint abnormal labs , weakness x days - History of Present Illness Patient is a 63-year-old male with a past medical history significant for psoriasis and this patient who was on Humira with recent addition of methotrexate by his academic counselor the patient has been sent to the ER by his physician and he was noticed to have abnormal labs patient noticed to have a low white count anemia and low platelet count patient has been complaining of generalized weakness increasing shortness of breath that is been going on for days patient denies high-grade fever at home however he did have a low-grade fever of 100.1 earlier this morning no fever on presentation repeat blood work done in the hospital shows a hemoglobin of 8.1, total 0.9 and a platelet count of 82 patient also have urine that was negative patient chest x-ray was negative for any pneumonia patient has been started on cefepime infectious was consulted for further recommendation regarding antibiotics patient did have a history of Pseudomonas left middle ankle wound with underlying osteomyelitis for which the patient has not completed his antibiotic therapy the current local wound care has been endoform dressing that was changed in the wound care center last week patient currently have no symptoms referable to his left medial ankle wound Review of Systems positive point has been mentioned in HPI rest of the systems are negative Past Medical History Past Medical History: Coronary Artery Disease (CAD), COPD, Deep Vein Thrombosis (DVT), GERD/Reflux, Hyperlipidemia, Hypertension, Memory Impairment, Osteoarthritis (OA), Rheumatoid Arthritis (RA), Skin Disorder, Vascular Disorder Additional Past Medical History / Comment(s): Multiple dislocations of left total hip, psoriasis, gout, hx of DVT both legs. Back and Hip pain. Current open left ankle wound with recent wound culture positive for pseudomonas. History of Any Multi-Drug Resistant Organisms: MRSA Year Discovered:: 06/09/17 MDRO Source:: Left Ankle Past Surgical History: Back Surgery, Heart Catheterization With Stent, Hernia Repair, Joint Replacement, Orthopedic Surgery Additional Past Surgical History / Comment(s): 09/28/17 arthrectomy, balloon angioplasty with stent left SFA, Cardiac catheterization with 4 stents placed - 2012, stents placed in bilateral legs & thinks stents in abd aorta, Back surgery - fusion and anuel in back. Left Hip replacement, cataract eye sx. Left ankle has screws. LAPARASCOPIC SHANTANU FUNDOPLASTY. 10/06/2018 LSFA STENT AND ARTHRECTOMY. Past Anesthesia/Blood Transfusion Reactions: Previous Problems w/ Anesthesia Additional Past Anesthesia/Blood Transfusion Reaction / Comm: "HAS CONFUSION AND DISORIENTATION POST ANESTHESIA " on occasion. 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 No travel as of late. no animals in the home. no current alcohol/ tobacco use Smoking Status: Former smoker Past Alcohol Use History: None Reported Additional Past Alcohol Use History / Comment(s): patient states he quit smoking in 2019 Past Drug Use History: None Reported - Past Family History Mother Family Medical History: No Reported History Additional Family Medical History / Comment(s): Father History Unknown: Yes Family Medical History: Unable to Obtain Medications and Allergies Home Medications Medication Instructions Recorded Confirmed Type Gabapentin [Neurontin] 300 mg PO TID 05/17/19 11/03/19 History Ipratropium-Albuterol Nebulize 3 ml INHALATION RT-QID 06/18/19 11/03/19 History [Duoneb 0.5 mg-3 mg/3 ml Soln] Albuterol Sulfate [Proair Hfa] 2 puff INHALATION RT-Q4H PRN 07/30/19 11/03/19 History Carvedilol [Coreg] 3.125 mg PO BID 09/12/19 11/03/19 History Ferrous Sulfate [Iron] 325 mg PO DAILY 09/12/19 11/03/19 History Furosemide [Lasix] 40 mg PO DAILY 09/12/19 11/03/19 History Ticagrelor [Brilinta] 90 mg PO BID 09/12/19 11/03/19 History hydrOXYzine HCL 25 mg PO HS 09/12/19 11/03/19 History Adalimumab [Humira Crohn's] 40 mg SQ Q14D 11/03/19 11/03/19 History Allopurinol [Zyloprim] 300 mg PO DAILY 11/03/19 11/03/19 History Aspirin EC [Ecotrin Low Dose] 81 mg PO DAILY 11/03/19 11/03/19 History Atorvastatin [Lipitor] 80 mg PO DAILY 11/03/19 11/03/19 History Citalopram Hydrobromide [CeleXA] 20 mg PO DAILY 11/03/19 11/03/19 History Donepezil [Aricept] 5 mg PO DAILY 11/03/19 11/03/19 History Folic Acid 1 mg PO DIRECTED 11/03/19 11/03/19 History Furosemide [Lasix] 20 mg PO HS 11/03/19 11/03/19 History Lisinopril [Zestril] 10 mg PO DAILY 11/03/19 11/03/19 History Methotrexate Sodium [Methotrexate] 15 mg PO Q7D 11/03/19 11/03/19 History Metoprolol Tartrate [Lopressor] 50 mg PO BID 11/03/19 11/03/19 History Triamcinolone 0.1% Cream [Kenalog 1 applicatio TOPICAL BID 11/03/19 11/03/19 History 0.1% Cream] traMADol HCL [traMADol HCL ER] 100 mg PO Q12H PRN 11/03/19 11/03/19 History Allergies Allergy/AdvReac Type Severity Reaction Status Date / Time hydromorphone [From Dilaudid] AdvReac Confusion Verified 11/03/19 10:18 Physical Exam Vitals: Vital Signs Temp Pulse Pulse Resp BP BP Pulse Ox 11/03/19 21:52 97.2 F L 104 H 22 151/70 95 11/03/19 21:22 103 H 11/03/19 21:02 103 H 99 11/03/19 15:27 87 11/03/19 15:18 83 11/03/19 11:41 97.7 F 82 19 100/55 100 11/03/19 07:37 96 11/03/19 07:25 88 11/03/19 05:05 100.1 F H 87 20 97/60 92 L 11/03/19 03:02 98.3 F 83 22 100/51 100 11/03/19 02:00 85 18 105/58 98 11/03/19 01:50 82 11/03/19 01:43 90 11/03/19 01:00 89 20 111/70 96 11/03/19 00:39 88 18 111/70 96 11/03/19 00:00 77 19 105/63 100 Intake and Output 11/03/19 11/03/19 11/04/19 14:59 22:59 06:59 Intake Total 600 225 Output Total 200 Balance 400 225 Intake: Intake, IV Titration 225 Amount Sodium Chloride 0.9% 1, 225 000 ml @ 75 mls/hr IV . [id number] [facility] Rx#:[id number] Oral 600 Output: Urine 200 Other: Voiding Method Urinal Urinal Weight 52.5 kg GENERAL DESCRIPTION: Elderly male lying in bed, no distress. No tachypnea or accessory muscle of respiration use. HEENT: Shows Pallor , no scleral icterus. Oral mucous membrane is dry. NECK: Trachea central, no thyromegaly. LUNGS: Unlabored breathing. Decreased breath sound at the base. No wheeze or crackle. HEART: S1, S2, regular rate and rhythm. ABDOMEN: Soft, no tenderness , guarding or rigidity EXTREMITIES: No edema of feet. Left medial ankle wound base looks clean there is no surrounding swelling redness or any drainage SKIN: Psoriatic rash, no masses palpable. NEUROLOGICAL: The patient is awake, alert, oriented x3, mood and affect normal. Results CBC & Chem 7: 11/02/19 22:34 11/02/19 22:34 Labs: Abnormal Lab Results - Last 24 Hours (Table) 11/03/19 11/03/19 11/03/19 Range/Units 07:43 07:43 07:43 Plasma Lactic Acid Juan <0.5 L (0.7-2.0) mmol/L Iron (65-175) ug/dL TIBC (228-460) ug/dL Total Protein (PEP) 5.5 L (6.2-8.2) g/dL Procalcitonin 0.18 H (0.02-0.09) ng/mL 11/03/19 Range/Units 12:09 Plasma Lactic Acid Juan (0.7-2.0) mmol/L Iron 39 L (65-175) ug/dL TIBC 223 L (228-460) ug/dL Total Protein (PEP) (6.2-8.2) g/dL Procalcitonin (0.02-0.09) ng/mL Assessment and Plan Assessment: patient with a low-grade fever and this patient has been admitted to hospital with pancytopenia leukopenia with a white count of 0.9 in this patient currently with no obvious focus of infection patient chest x-ray was negative UA was negative abdominal soft nontender examination and the patient chronic nonhealing wound to the left medial ankle area currently with the source of infection or cellulitis (1) Fever Current Visit: Yes Status: Acute Code(s): R50.9 - FEVER, UNSPECIFIED SNOMED Code(s): 213178267 (2) Wound of left foot Current Visit: Yes Status: Acute Code(s): S91.302A - UNSPECIFIED OPEN WOUND, LEFT FOOT, INITIAL ENCOUNTER SNOMED Code(s): 244184533 (3) Pancytopenia Current Visit: Yes Status: Acute Priority: High Code(s): D61.818 - OTHER PANCYTOPENIA SNOMED Code(s): 716327640 Plan: 1-blood cultures x2 2-agree with empiric cefepime while waiting for the culture to be finalized 3-Local wound care to the left medial ankle wound with Aquacel silver dressing to change every 48 hour We will follow on clinical condition and cultures to further adjust medication if needed Thank you for this consultation we will follow the patient along with you Time with Patient: Greater than 30
[2019-11-04] MEDS: SODIUM CHLORIDE 0.9% 1,000 ML IV SCH ×3 (02:01→23:20)
[2019-11-04] MEDS: diphenhydrAMINE 50 MG/ML 1 ML VIAL IVP PRN ×4 (02:02→23:39)
[2019-11-04 07:11] LABS: Anisocytosis Moderate; Basophils % (A) 0 %; Eosinophils % (A) 0 %; HGB 7.2 gm/dL (13.0-17.5); Hypochromasia Slight; Lymphocytes # (A) 0.2 k/uL (1.0-4.8); Lymphocytes % (A) 12 %; MCH 29.9 pg (25.0-35.0); MCHC 31.4 g/dL (31.0-37.0); MCV 95.2 fL (80.0-100.0); Macrocytosis Slight; Mean Platelet Volume 8.8; Monocytes # (A) 0.1 k/uL (0-1.0); Monocytes % (A) 5 %; Neutrophils % (A) 80 %; RBC 2.41 m/uL (4.30-5.90); RDW 20.4 % (11.5-15.5)
[2019-11-04] MEDS: IPRATROPIUM-ALBUTEROL 3 ML NEB INHALATION SCH ×4 (07:17→20:14)
[2019-11-04] MEDS: SYMBICORT 160-4.5 MCG INHALER INHALATION SCH ×2 (07:17→20:12)
[2019-11-04 07:24] LABS: African American GFR (CKD) >90 (>60 ml/min/1.73 sqM); Anion Gap 10 mmol/L; Blood Urea Nitrogen 34 mg/dL (9-20); Calcium 8.3 mg/dL (8.4-10.2); Carbon Dioxide 17 mmol/L (22-30); Chloride 116 mmol/L (98-107); Glucose 142 mg/dL (74-99); Non-African American GFR(CKD) >90 (>60 ml/min/1.73 sqM); Potassium 4.1 mmol/L (3.5-5.1); Sodium 143 mmol/L (137-145)
[2019-11-04] MEDS ORDERED: diphenhydrAMINE 50 MG/ML 1 ML VIAL IVP STA (07:41)
[2019-11-04 07:42] LABS: WBC 1.3 k/uL (3.8-10.6)
--- NOTE | 2019-11-04 07:45 | P.PN ---
Subjective On-call hospitalist covering Dr. Woodson 11/03-11/06 This is a pleasant 63 years old male with past medical history of coronary artery disease status post stent placement, COPD, DVT, gastroesophageal reflux disease, hyperlipidemia, hypertension, memory impairment, osteoarthritis, rheumatoid arthritis, hip dislocation, psoriasis, gout, back and hip pain. Left ankle wound with culture growing Pseudomonas. Peripheral vascular disease with stent placement. Status post back surgery with fusion. 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 steen noticed low white blood cell count and his blood. Patient has been complaining of from dyspnea for about a week, associated with a dry cough and right-sided chest pain for the last 3-4 days about a/10 in severity. Like something grabbing his chest increased with movement and coughing and deep inspiration. Also has been complaining of from left ankle ulcer for about 2-3 years now Patient has history of DVT about 20 years ago however his anticoagulation has been stopped by his doctor Patient still smokes cigarettes, he states that cigarette was about 2 weeks ago and he states he smoked sporadically. No alcohol or illicit drugs On the presentation patient had fever off 100.1, blood pressure is 97/60. Heart rate 87. He saturating 92% on 4 L oxygen. Labs showing WBC of 0.9, previously was normal. Hemoglobin is 8.1, platelets is 82. Liver enzymes not elevated, troponin is less than 0.012. EKG showing normal sinus rhythm at [address]-T changes and QTC of 493. Chest x-ray: No acute consultation are process by radiologist. Urine is negative. Her admission patient was started on cefepime and got 1 L of normal saline Creative Project Manager was consulted from emergency room, we'll consult also infectious disease 11/04/2019 Patient dyspnea is as baseline has been evaluated by Dr. Bermudez. He has minimal cough and no chest pain today. He is complaining of from severe itching and chronic left hip and back pain. No lymphadenopathy felt by palpation on both groin areas, he has chronic left ankle ulcer, he has itching/excoriation tineo on his both legs. Vitals are stable, no more fever since yesterday and he saturating 97% in 2 L. His BMP from today is unremarkable, Showing anemia of chronic disease and B12 is low normal was going to be replaced by pills. His CBC from this morning is pending Hematology team evaluated the patient and start him on Filgrastim, nor normal saline to 50 mL per hour. His Procol serotonin is elevated at 0.8, is currently on cefepime and infectious disease has been consulted. Doppler is negative but showing groin lymph nodes 3.3 x 0.8 x 2.2 cm. Abdominal ultrasound is pending CONSTITUTIONAL: No fever, no malaise, no fatigue. HEENT: No recent visual problems or hearing problems. Denied any sore throat. CARDIOVASCULAR: No orthopnea, PND, no palpitations, no syncope. PULMONARY: no hemoptysis. GASTROINTESTINAL: No diarrhea, no nausea, no vomiting, no abdominal pain. Normoactive bowel sounds. NEUROLOGICAL: No headaches, no weakness, no numbness. HEMATOLOGICAL: Denies any bleeding or petechiae. GENITOURINARY: Denies any burning micturition, frequency, or urgency. MUSCULOSKELETAL/RHEUMATOLOGICAL: Denies any joint pain, swelling, or any muscle pain. ENDOCRINE: Denies any polyuria or polydipsia. Active Medications Generic Name Dose Route Start Last Admin Trade Name Kunq PRN Reason Stop Dose Admin Acetaminophen 650 mg 11/03/19 01:26 Tylenol Tab PO Q6HR PRN Mild Pain or Fever > 100.5 Hydrocodone Bitart/Acetaminophen 1 each 11/03/19 01:26 11/03/19 23:02 [place] 5-325 PO 1 each Q4HR PRN Administration Moderate Pain Al Hydroxide/Mg Hydroxide 15 ml 11/03/19 01:26 Maalox PO Q6HR PRN Indigestion Albuterol/Ipratropium 3 ml 11/03/19 16:00 11/04/19 07:17 Duoneb 0.5 Mg-3 Mg/3 Ml Soln INHALATION 3 ml RT-QID [facility] Administration Aspirin 81 mg 11/03/19 09:00 11/03/19 07:41 Aspirin PO 81 mg DAILY [facility] Administration Atorvastatin Calcium 80 mg 11/03/19 09:00 11/03/19 07:43 Lipitor PO 80 mg DAILY [facility] Administration Betamethasone Dipropionate 1 applic 11/03/19 09:00 11/03/19 22:11 Diprolene Af TOPICAL 1 applic BID [facility] Administration Budesonide/Formoterol Fumarate 2 puff 11/03/19 20:00 01/24/20 07:17 Symbicort 160-4.5 Mcg Inhaler INHALATION 2 puff RT-BID [facility] Administration Carvedilol 3.125 mg 11/03/19 07:30 11/03/19 15:29 Coreg PO Not Given BID-W/MEALS [facility] Citalopram Hydrobromide 20 mg 11/03/19 09:00 11/03/19 07:41 Celexa PO 20 mg DAILY [facility] Administration Cyanocobalamin 1,000 mcg 11/04/19 09:00 Vitamin B-12 PO DAILY [facility] Diphenhydramine HCl 25 mg 11/04/19 01:46 11/04/19 02:02 Benadryl IVP 25 mg Q4HR PRN Administration Itching Donepezil HCl 5 mg 11/03/19 09:00 11/03/19 07:42 Aricept PO 5 mg DAILY [facility] Administration Famotidine 20 mg 11/03/19 09:00 11/03/19 21:32 Pepcid IV 20 mg Q12HR [facility] Administration Ferrous Sulfate 325 mg 11/03/19 09:00 11/03/19 07:43 Feosol PO 325 mg DAILY [facility] Administration Filgrastim 300 mcg 11/03/19 18:45 11/03/19 19:42 Zarxio SQ 300 mcg DAILY [facility] Administration Furosemide 40 mg 11/03/19 09:00 11/03/19 07:43 Lasix PO 40 mg DAILY [facility] Administration Gabapentin 300 mg 11/03/19 09:00 11/03/19 21:33 Neurontin PO 300 mg TID [facility] Administration Heparin Sodium (Porcine) 5,000 unit 11/03/19 09:00 11/03/19 21:33 Heparin SQ 5,000 unit Q12HR [facility] Administration Hydroxyzine HCl 25 mg 11/03/19 06:00 11/03/19 21:33 Atarax PO 25 mg Q6H PRN Administration ANXIETY/ITCHING Sodium Chloride 1,000 mls @ 20 mls/hr 11/03/19 01:30 11/04/19 02:01 Saline 0.9% IV Not Given .Q24H [facility] Cefepime HCl 2 gm/ Sodium 100 mls @ 200 mls/hr 11/03/19 08:00 11/03/19 23:00 Chloride IVPB 200 mls/hr Q8HR [facility] Administration Sodium Chloride 1,000 mls @ 50 mls/hr 11/03/19 07:30 11/03/19 19:45 Saline 0.9% IV 75 mls/hr .Q20H [facility] Administration Lisinopril 10 mg 11/03/19 09:00 11/03/19 07:45 Zestril PO Not Given DAILY [facility] Loratadine 10 mg 11/03/19 09:00 11/03/19 07:42 Claritin PO 10 mg DAILY [facility] Administration Magnesium Hydroxide 2,400 mg 11/03/19 01:26 Milk Of Magnesia PO DAILY PRN Constipation Naloxone HCl 0.2 mg 11/03/19 01:26 Narcan IV Q2M PRN Opioid Reversal Nicotine 1 patch 11/03/19 09:00 11/03/19 08:06 Habitrol 14mg/24hr Patch TRANSDERM 1 patch DAILY [facility] Administration Ondansetron HCl 4 mg 11/03/19 01:26 Zofran IVP Q8HR PRN Nausea And Vomiting Ticagrelor 90 mg 11/03/19 09:00 11/03/19 22:11 Brilinta PO 90 mg BID [facility] Administration Objective - Vital Signs Vital signs: Vital Signs Temp 97.7 F 11/04/19 05:00 Pulse 88 11/04/19 07:20 Resp 17 11/04/19 05:00 BP 112/57 11/04/19 05:00 Pulse Ox 97 11/04/19 05:00 Intake & Output 11/03/19 11/04/19 11/04/19 18:59 06:59 18:59 Intake Total 600 825 Output Total 200 475 Balance 400 350 Weight 52.5 kg Intake: Intake, IV Titration 825 Amount Sodium Chloride 0.9% 1, 825 000 ml @ 75 mls/hr IV . [id number] [facility] Rx#:[id number] Oral 600 Output: Urine 200 475 Other: Voiding Method Urinal Urinal - Exam GENERAL: The patient is alert and oriented x3, not in any acute distress. Well developed, well nourished. HEENT: Pupils are round and equally reacting to light. EOMI. No scleral icterus. No conjunctival pallor. Normocephalic, atraumatic. No pharyngeal erythema. No thyromegaly. CARDIOVASCULAR: S1 and S2 present. No murmurs, rubs, or gallops. -PULMONARY: Chest is clear to auscultation, bilateral expiratory wheezing with tachypnea ABDOMEN: Soft, nontender, nondistended, normoactive bowel sounds. No palpable organomegaly. MUSCULOSKELETAL: No joint swelling or deformity. -EXTREMITIES: No cyanosis, clubbing, or pedal edema. Left ankle ulcer over the medial malleolus, about 1x 0.5 inches in diameter, with no surrounding cellulitis or purulent discharge NEUROLOGICAL: Gross neurological examination did not reveal any focal deficits. SKIN: No rashes. No petechiae - Labs CBC & Chem 7: 11/02/19 22:34 11/04/19 06:35 Labs: Abnormal Lab Results - Last 24 Hours (Table) 11/03/19 11/03/19 11/03/19 Range/Units 07:43 07:43 07:43 Chloride (98-107) mmol/L Carbon Dioxide (22-30) mmol/L BUN (9-20) mg/dL Glucose (74-99) mg/dL Plasma Lactic Acid Juan <0.5 L (0.7-2.0) mmol/L Calcium (8.4-10.2) mg/dL Iron (65-175) ug/dL TIBC (228-460) ug/dL Total Protein (PEP) 5.5 L (6.2-8.2) g/dL Procalcitonin 0.18 H (0.02-0.09) ng/mL 11/03/19 11/04/19 Range/Units 12:09 06:35 Chloride 116 H (98-107) mmol/L Carbon Dioxide 17 L (22-30) mmol/L BUN 34 H (9-20) mg/dL Glucose 142 H (74-99) mg/dL Plasma Lactic Acid Juan (0.7-2.0) mmol/L Calcium 8.3 L (8.4-10.2) mg/dL Iron 39 L (65-175) ug/dL TIBC 223 L (228-460) ug/dL Total Protein (PEP) (6.2-8.2) g/dL Procalcitonin (0.02-0.09) ng/mL Microbiology - Last 24 Hours (Table) 11/02/19 22:34 Blood Culture - Preliminary Blood No Growth after 24 hours Assessment and Plan Assessment: Pancytopenia Possible Febrile neutropenia Sepsis secondary to above with SIRS syndrome with fever, leukopenia, and tachypnea. Anemia of chronic disease Borderline low vitamin B12, replaced right groin lymph nodes 3.3 x 0.8 x 2.2 cm Chronic Left ankle ulcer over the medial malleolus with history of Pseudomonas in the culture Acute COPD exacerbation Hypertension Hyperlipidemia History of coronary artery disease status post 4 stents History of the venous thrombosis GERD Memory impairment Osteoarthritis Rheumatoid arthritis History of dislocation Psoriasis Chronic hip and back pain status post back surgery and fusion Plan: This is a pleasant 63 years old male who presents with febrile pancytopenia/neutropenia. Check lactic acid, follow-up pancytopenia numbers especially WBC with differential. Consults on follow-up recommendation by Infectious disease and hematology consults. Continue with antibiotic as per infectious disease recommendation and follow-up culture results. Continue with steroids, breathing treatments and oxygen Patient counseled to quit smoking. Nicotine patch Labs and medication were reviewed.. Continue same treatment. Continue with symptomatic treatment. Resume home medication. Monitor lytes and vitals. DVT and GI prophylaxis. Further recommendations of the clinical course of the patient DVT prophylaxis: Subcutaneous heparin GI Prophylaxis: Pepcid PT/OT: Pending Prognosis is guarded
[2019-11-04] MEDS: CEFEPIME 2 GM in SODIUM CHLORIDE 0.9% 100 ML IVPB SCH ×3 (08:22→23:22)
[2019-11-04] MEDS: ATORVASTATIN 80 MG TAB PO SCH (08:25)
[2019-11-04] MEDS: ASPIRIN 81 MG PO SCH (08:25)
[2019-11-04] MEDS: CITALOPRAM HYDROBROMIDE 20 MG TAB PO SCH (08:25)
[2019-11-04] MEDS: FERROUS SULFATE 325 MG TAB PO SCH (08:25)
[2019-11-04] MEDS: FUROSEMIDE 40 MG TAB PO SCH (08:26)
[2019-11-04] MEDS: LORATADINE 10 MG TAB PO SCH (08:26)
[2019-11-04] MEDS: HEPARIN SODIUM,PORCINE 5,000 UNIT/ML 1 ML VIAL SQ SCH ×2 (08:26→21:39)
[2019-11-04] MEDS: GABAPENTIN 300 MG CAP PO SCH ×3 (08:26→21:39)
[2019-11-04] MEDS: CARVEDILOL 3.125 MG TAB PO SCH ×2 (08:26→18:04)
[2019-11-04] MEDS: FAMOTIDINE 20 MG/2 ML VIAL IV SCH ×2 (08:26→21:38)
[2019-11-04] MEDS: HYDROcodone/APAP 5-325MG 1 EACH TAB PO PRN ×4 (08:27→23:37)
[2019-11-04] MEDS: LISINOPRIL 10 MG TAB PO SCH (08:32)
[2019-11-04] MEDS: NICOTINE 14MG/24HR PATCH TRANSDERM SCH (08:40)
[2019-11-04 08:47] LABS: Free Kappa Lt Chain Qnt, Serum 7.24 mg/dL (0.33-1.94)
--- NOTE | 2019-11-04 09:56 | US ---
EXAMINATION TYPE: US abdomen complete DATE OF EXAM: 11/04/2019 COMPARISON: MRI lumbar spine 2018. Prior limited abdominal ultrasound 2014. CLINICAL HISTORY: pancytopenia, pls comment liver and spleen size. NPO. EXAM MEASUREMENTS: Liver Length: 16.0 cm Gallbladder Wall: 0.2 cm CBD: 0.5 cm Spleen: 11.6 cm Right Kidney: 8.9 x 4.1 x 4.3 cm Left Kidney: 11.8 x 4.3 x 5.3 cm Suboptimal visualization due to patient breathing Pancreas: Limited visualization of tail due to overlying bowel gas Liver: Appears coarse in appearance Gallbladder: wnl Evidence for sonographic Mccoy's sign: neg CBD: wnl Spleen: wnl Right Kidney: Lower pole echogenic focus with shadowing - 0.6 cm. Multiple cystic appearing lesions seen upper pole, largest measured. 1: lateral= 0.9 x 1.1 x 1.0 cm. 2: Mid= 1.1 x 0.8 x 1.0 cm Left Kidney: Upper pole echogenic focus with shadow- 0.6 cm. Lower pole cystic appearing lesion = 3. 5 x 2.9 x 2.5 cm Upper IVC: wnl Abd Aorta: Proximal and mid obscured by overlying bowel gas Visualized liver is heterogeneously hyperechoic. No surrounding ascites. Evaluation for focal masses suboptimal due to the heterogeneity. The intrahepatic portion of the IVC and visualized mid and dista l abdominal aorta are within normal limits. There is no evidence of cholelithiasis. Common bile gordy t is unremarkable. The visualized portions of the pancreas are homogenous. The spleen is unremarkab le. Kidneys are symmetric and free of hydronephrosis. Technologist marked several tiny simple appear ing thin-walled cysts throughout the bilateral kidneys. In addition there is 2.9 cm exophytic hypoech oic lesion with increased through transmission favoring debris filled cyst laterally in the left kidn ey. IMPRESSION: Liver and spleen felt within normal limits in size. Heterogeneous hyperechoic appearance the liver is consistent with diffuse fatty infiltration and/or underlying hepatocellular disease.
[2019-11-04] MEDS: TICAGRELOR 90 MG TAB PO SCH ×2 (10:02→21:39)
[2019-11-04] MEDS: DONEPEZIL 5 MG TAB PO SCH (10:02)
[2019-11-04] MEDS: CYANOCOBALAMIN 500 MCG TAB PO SCH (10:02)
[2019-11-04] MEDS: FILGRASTIM-SNDZ 300 MCG/0.5 ML SYRINGE SQ SCH (10:03)
[2019-11-04] MEDS: BETAMETHASONE DIPROPIONATE 0.05% CREAM 15 GM TUBE TOPICAL SCH ×2 (10:05→21:40)
[2019-11-04 12:41] LABS: Albumin 2.49 g/dL (3.80-4.90); Gamma Globulin 0.84 g/dL (0.70-1.50)
[2019-11-04 13:17] LABS: Platelet Count 62 k/uL (150-450)
--- NOTE | 2019-11-04 14:14 | P.PN ---
Subjective Progress Note Date: 11/04/19 Principal diagnosis: Pancytopenia The patient is seen today 11/04/2019 in follow-up on the regular medical floor. He is currently resting comfortably in bed. Awake and alert in no acute distress. He denies any worsening shortness of breath, cough or congestion. He is maintaining good O2 saturations in the upper 90s on 2 L/m per nasal cannula. She's afebrile. He was admitted for pancytopenia following treatment with Humira and methotrexate for severe psoriasis. Current white count 1.3. Hemoglobin 7.2. Platelet count 62,000. Blood culture reveals no growth to date. He is receiving Zarxio. Hematology is on the case as well. Objective - Vital Signs Vital signs: Vital Signs Temp 97.8 F 11/04/19 11:41 Pulse 80 11/04/19 11:41 Resp 16 11/04/19 11:41 BP 93/50 11/04/19 11:41 Pulse Ox 98 11/04/19 11:41 Intake & Output 11/03/19 11/04/19 11/04/19 18:59 06:59 18:59 Intake Total 600 825 Output Total 200 475 Balance 400 350 Weight 52.5 kg Intake: Intake, IV Titration 825 Amount Sodium Chloride 0.9% 1, 825 000 ml @ 75 mls/hr IV . [id number] [facility] Rx#:[id number] Oral 600 Output: Urine 200 475 Other: Voiding Method Urinal Urinal Urinal - Exam GENERAL EXAM: Alert, pleasant 63-year-old gentleman, on 2 L nasal cannula, comfortable in no apparent distress. HEAD: Normocephalic. EYES: Normal reaction of pupils, equal size. NOSE: Clear with pink turbinates. THROAT: No erythema or exudates. NECK: No masses, no JVD. CHEST: No chest wall deformity. LUNGS: Equal air entry with no crackles, wheeze, rhonchi or dullness. Diminished. CVS: S1 and S2 normal with no audible murmur, regular rhythm. ABDOMEN: No hepatosplenomegaly, normal bowel sounds, no guarding or rigidity. SPINE: No scoliosis or deformity SKIN: No rashes CENTRAL NERVOUS SYSTEM: No focal deficits, tone is normal in all 4 extremities. EXTREMITIES: There is no peripheral edema. No clubbing, no cyanosis. Peripheral pulses are intact. - Labs CBC & Chem 7: 11/04/19 06:35 11/04/19 06:35 Labs: Abnormal Lab Results - Last 24 Hours (Table) 11/03/19 11/03/19 11/03/19 Range/Units 07:43 07:43 12:09 WBC (3.8-10.6) k/uL RBC (4.30-5.90) m/uL Hgb (13.0-17.5) gm/dL Hct (39.0-53.0) % RDW (11.5-15.5) % Plt Count (150-450) k/uL Neutrophils # (1.3-7.7) k/uL Lymphocytes # (1.0-4.8) k/uL Chloride (98-107) mmol/L Carbon Dioxide (22-30) mmol/L BUN (9-20) mg/dL Glucose (74-99) mg/dL Calcium (8.4-10.2) mg/dL Iron 39 L (65-175) ug/dL TIBC 223 L (228-460) ug/dL Total Protein (PEP) 5.5 L (6.2-8.2) g/dL Albumin (PEP) 2.49 L (3.80-4.90) g/dL Thdoz-8-[id number] 0.48 H (0.10-0.40) g/dL Procalcitonin 0.18 H (0.02-0.09) ng/mL Free [place] LC, Quant 7.24 H (0.33-1.94) mg/dL Free Lambda LC, Quant 5.56 H (0.57-2.63) mg/dL 11/04/19 11/04/19 Range/Units 06:35 06:35 WBC 1.3 L* (3.8-10.6) k/uL RBC 2.41 L (4.30-5.90) m/uL Hgb 7.2 L (13.0-17.5) gm/dL Hct 23.0 L (39.0-53.0) % RDW 20.4 H (11.5-15.5) % Plt Count 62 L (150-450) k/uL Neutrophils # 1.0 L (1.3-7.7) k/uL Lymphocytes # 0.2 L (1.0-4.8) k/uL Chloride 116 H (98-107) mmol/L Carbon Dioxide 17 L (22-30) mmol/L BUN 34 H (9-20) mg/dL Glucose 142 H (74-99) mg/dL Calcium 8.3 L (8.4-10.2) mg/dL Iron (65-175) ug/dL TIBC (228-460) ug/dL Total Protein (PEP) (6.2-8.2) g/dL Albumin (PEP) (3.80-4.90) g/dL Rcwbg-6-Eorlkqdui (0.10-0.40) g/dL Procalcitonin (0.02-0.09) ng/mL Free [place] LC, Quant (0.33-1.94) mg/dL Free Lambda LC, Quant (0.57-2.63) mg/dL Microbiology - Last 24 Hours (Table) 11/03/19 07:43 Blood Culture - Preliminary Blood No Growth after 24 hours 11/02/19 22:34 Blood Culture - Preliminary Blood No Growth after 24 hours Assessment and Plan Assessment: 1 Pancytopenia suspect secondary to Humira and/or methotrexate 2 History of COPD, currently inactive and stable 3 Chronic and ongoing tobacco dependence 4 Coronary artery disease 5 History of DVT 6 GERD 7 Hyperlipidemia 8 Hypertension 9 Memory impairment 10 Rheumatoid arthritis 11 Psoriasis 12 Peripheral vascular occlusive disease Plan The patient was seen and evaluated by Dr. Bermudez. He is continued on DuoNeb inhalations and Symbicort. No pulmonary complaints at this time. We'll follow on as-needed basis. He'll keep his appointment with Dr. Dr. Bermudez in the office as scheduled. I, the cosigning physician, performed a history & physical examination of the patient. Lungs sounds are clear, diminished. Maintaining good O2 saturations in the 90s on 2 L/m per nasal cannula. I discussed the assessment and plan of care with my nurse practitioner, Neda Mcleod. I attest to the above note as dictated by her.
--- NOTE | 2019-11-04 16:51 | P.PN ---
Subjective Progress Note Date: 11/04/19 Principal diagnosis: pancytopenia In follow-up today patient is denying any complaints on a 10 point review of systems, he is still feeling pretty weak, appetite is fair. He denies pain Objective - Vital Signs Vital signs: Vital Signs Temp 97.8 F 11/04/19 11:41 Pulse 80 11/04/19 11:41 Resp 16 11/04/19 11:41 BP 93/50 11/04/19 11:41 Pulse Ox 98 11/04/19 11:41 Intake & Output 11/03/19 11/04/19 11/04/19 18:59 06:59 18:59 Intake Total 600 825 450 Output Total 200 475 Balance 400 350 450 Weight 52.5 kg Intake: Intake, IV Titration 825 450 Amount Cefepime 2 gm In Sodium 100 Chloride 0.9% 100 ml @ 200 mls/hr IVPB Q8HR [facility] Rx#:[id number] Sodium Chloride 0.9% 1, 825 350 000 ml @ 50 mls/hr IV . Q20H [facility] Rx#:[id number] Oral 600 Output: Urine 200 475 Other: Voiding Method Urinal Urinal Urinal - Constitutional General appearance: Present: cooperative, no acute distress, thin - EENT Eyes: Present: anicteric sclerae, EOMI ENT: Present: hearing grossly normal - Respiratory Respiratory: bilateral: CTA - Cardiovascular Heart sounds: normal: S1, S2 Abnormal Heart Sounds: Absent: systolic murmur, diastolic murmur, rub, S3 Gallop, S4 Gallop, click, other - Peripheral edema leg Peripheral Edema: bilateral: None - Gastrointestinal General gastrointestinal: Present: normal bowel sounds, soft - Neurologic Neurologic: Present: CNII-XII intact - Musculoskeletal Musculoskeletal: Present: generalized weakness - Psychiatric Psychiatric: Present: A&O x's 3, appropriate affect, intact judgment & insight - Labs CBC & Chem 7: 11/04/19 06:35 11/04/19 06:35 Labs: Abnormal Lab Results - Last 24 Hours (Table) 11/03/19 11/03/19 11/03/19 Range/Units 07:43 07:43 12:09 WBC (3.8-10.6) k/uL RBC (4.30-5.90) m/uL Hgb (13.0-17.5) gm/dL Hct (39.0-53.0) % RDW (11.5-15.5) % Plt Count (150-450) k/uL Neutrophils # (1.3-7.7) k/uL Lymphocytes # (1.0-4.8) k/uL Chloride (98-107) mmol/L Carbon Dioxide (22-30) mmol/L BUN (9-20) mg/dL Glucose (74-99) mg/dL Calcium (8.4-10.2) mg/dL Iron 39 L (65-175) ug/dL TIBC 223 L (228-460) ug/dL Albumin (PEP) 2.49 L (3.80-4.90) g/dL Kdxvr-[id number] 0.48 H (0.10-0.40) g/dL Procalcitonin 0.18 H (0.02-0.09) ng/mL Free [place] LC, Quant 7.24 H (0.33-1.94) mg/dL Free Lambda LC, Quant 5.56 H (0.57-2.63) mg/dL 11/04/19 11/04/19 Range/Units 06:35 06:35 WBC 1.3 L* (3.8-10.6) k/uL RBC 2.41 L (4.30-5.90) m/uL Hgb 7.2 L (13.0-17.5) gm/dL Hct 23.0 L (39.0-53.0) % RDW 20.4 H (11.5-15.5) % Plt Count 62 L (150-450) k/uL Neutrophils # 1.0 L (1.3-7.7) k/uL Lymphocytes # 0.2 L (1.0-4.8) k/uL Chloride 116 H (98-107) mmol/L Carbon Dioxide 17 L (22-30) mmol/L BUN 34 H (9-20) mg/dL Glucose 142 H (74-99) mg/dL Calcium 8.3 L (8.4-10.2) mg/dL Iron (65-175) ug/dL TIBC (228-460) ug/dL Albumin (PEP) (3.80-4.90) g/dL Vjrpa-5-Fffuhmefh (0.10-0.40) g/dL Procalcitonin (0.02-0.09) ng/mL Free [place] LC, Quant (0.33-1.94) mg/dL Free Lambda LC, Quant (0.57-2.63) mg/dL Microbiology - Last 24 Hours (Table) 11/03/19 07:43 Blood Culture - Preliminary Blood No Growth after 24 hours 11/02/19 22:34 Blood Culture - Preliminary Blood No Growth after 24 hours Assessment and Plan (1) Pancytopenia Narrative/Plan: Pancytopenia workup has been ordered. The results so far are nonspecific, iron studies are adequate, kappa lambda are increased but ratio is normal. Patient has a low normal B12 level, methylmalonic acid pending. Ultrasound of the liver and spleen shows evidence of liver disease, no splenomegaly. Patient recently started treatment with monoclonal antibody Humira but, nothing in the literature about this causing severe pancytopenia. Transfuse for hemoglobin less than 7. Transfuse to keep platelets greater than 10,000 unless patient is symptomatic GCSF for low WBC with an increase in WBC today. Cont for now Current Visit: Yes Status: Acute Priority: High Code(s): D61.818 - OTHER PANCYTOPENIA SNOMED Code(s): 187509195
[2019-11-04] MEDS ORDERED: CYANOCOBALAMIN 1,000 MCG/ML 1 ML VIAL IM ONE (17:00)
--- NOTE | 2019-11-04 19:47 | PN ---
PROGRESS NOTE DATE OF SERVICE: 11/04/2019. REASON FOR FOLLOWUP: 1. Febrile neutropenia. 2. Left medial ankle wound. INTERVAL HISTORY: The patient is currently afebrile. The patient has been breathing comfortably. Patient denies having any chest pain or shortness of breath or cough. No nausea. No vomiting. No abdominal pain. No pain to the left medial ankle wound area. PHYSICAL EXAMINATION: Blood pressure is 93/50 with a pulse of 80, temperature 97.8. He is 98% on 2 L nasal cannula. General description is an elderly male lying in bed in no distress. RESPIRATORY SYSTEM: Unlabored breathing. Clear to auscultation anteriorly. HEART: S1, S2. Regular rate and rhythm. ABDOMEN: Soft. No tenderness. Left foot is currently dressed up. No obvious drainage on the dressing. LABS: Hemoglobin 7.2, white count 1.3, BUN of 34, creatinine 0.67. Blood culture has been negative. DIAGNOSTIC IMPRESSION AND PLAN: Patient admitted to hospital with pancytopenia, possibly related to his medication for psoriasis in this patient who did have a low-grade fever. So far the patient's fever has resolved. Culture has been negative. Covered with the cefepime. That will be continued and we will monitor clinical course closely. MMODL / IJN: [id number] /
[2019-11-05] MEDS: HYDROcodone/APAP 5-325MG 1 EACH TAB PO PRN ×4 (04:14→20:32)
[2019-11-05] MEDS: diphenhydrAMINE 50 MG/ML 1 ML VIAL IVP PRN ×3 (04:15→17:21)
[2019-11-05] MEDS: SYMBICORT 160-4.5 MCG INHALER INHALATION SCH ×2 (07:28→19:30)
[2019-11-05] MEDS: IPRATROPIUM-ALBUTEROL 3 ML NEB INHALATION SCH ×4 (07:28→19:30)
[2019-11-05] MEDS: SODIUM CHLORIDE 0.9% 1,000 ML IV SCH (08:54)
[2019-11-05] MEDS: CITALOPRAM HYDROBROMIDE 20 MG TAB PO SCH (08:55)
[2019-11-05] MEDS: LISINOPRIL 10 MG TAB PO SCH (08:55)
[2019-11-05] MEDS: FAMOTIDINE 20 MG/2 ML VIAL IV SCH ×2 (08:55→20:32)
[2019-11-05] MEDS: HEPARIN SODIUM,PORCINE 5,000 UNIT/ML 1 ML VIAL SQ SCH ×2 (08:55→20:32)
[2019-11-05] MEDS: ASPIRIN 81 MG PO SCH (08:55)
[2019-11-05] MEDS: FUROSEMIDE 40 MG TAB PO SCH (08:55)
[2019-11-05] MEDS: ATORVASTATIN 80 MG TAB PO SCH (08:55)
[2019-11-05] MEDS: FERROUS SULFATE 325 MG TAB PO SCH (08:55)
[2019-11-05] MEDS: CYANOCOBALAMIN 500 MCG TAB PO SCH (08:55)
[2019-11-05] MEDS: GABAPENTIN 300 MG CAP PO SCH ×3 (08:55→21:27)
[2019-11-05] MEDS: LORATADINE 10 MG TAB PO SCH (08:55)
[2019-11-05] MEDS: NICOTINE 14MG/24HR PATCH TRANSDERM SCH (08:56)
[2019-11-05] MEDS: CEFEPIME 2 GM in SODIUM CHLORIDE 0.9% 100 ML IVPB SCH ×3 (08:56→23:25)
[2019-11-05] MEDS: TICAGRELOR 90 MG TAB PO SCH ×2 (08:59→20:32)
[2019-11-05] MEDS: DONEPEZIL 5 MG TAB PO SCH (09:00)
[2019-11-05] MEDS: FILGRASTIM-SNDZ 300 MCG/0.5 ML SYRINGE SQ SCH (09:06)
[2019-11-05] MEDS: CARVEDILOL 3.125 MG TAB PO SCH ×2 (09:09→17:27)
--- NOTE | 2019-11-05 09:27 | P.PN ---
Subjective On-call hospitalist covering Dr. Woodson 11/03-11/06 This is a pleasant 63 years old male with past medical history of coronary artery disease status post stent placement, COPD, DVT, gastroesophageal reflux disease, hyperlipidemia, hypertension, memory impairment, osteoarthritis, rheumatoid arthritis, hip dislocation, psoriasis, gout, back and hip pain. Left ankle wound with culture growing Pseudomonas. Peripheral vascular disease with stent placement. Status post back surgery with fusion. He presents to the hospital because his taxation inspector who sees him for psoriasis Dr. steen noticed low white blood cell count and his blood. Patient has been complaining of from dyspnea for about a week, associated with a dry cough and right-sided chest pain for the last 3-4 days about a/10 in severity. Like something grabbing his chest increased with movement and coughing and deep inspiration. Also has been complaining of from left ankle ulcer for about 2-3 years now Patient has history of DVT about 20 years ago however his anticoagulation has been stopped by his doctor Patient still smokes cigarettes, he states that cigarette was about 2 weeks ago and he states he smoked sporadically. No alcohol or illicit drugs On the presentation patient had fever off 100.1, blood pressure is 97/60. Heart rate 87. He saturating 92% on 4 L oxygen. Labs showing WBC of 0.9, previously was normal. Hemoglobin is 8.1, platelets is 82. Liver enzymes not elevated, troponin is less than 0.012. EKG showing normal sinus rhythm at [address]-T changes and QTC of 493. Chest x-ray: No acute consultation are process by radiologist. Urine is negative. Her admission patient was started on cefepime and got 1 L of normal saline Division Sergeant was consulted from emergency room, we'll consult also infectious disease 11/04/2019 Patient dyspnea is as baseline has been evaluated by Dr. Bermudez. He has minimal cough and no chest pain today. He is complaining of from severe itching and chronic left hip and back pain. No lymphadenopathy felt by palpation on both groin areas, he has chronic left ankle ulcer, he has itching/excoriation tineo on his both legs. Vitals are stable, no more fever since yesterday and he saturating 97% in 2 L. His BMP from today is unremarkable, Showing anemia of chronic disease and B12 is low normal was going to be replaced by pills. His CBC from this morning is pending Hematology team evaluated the patient and start him on Filgrastim, nor normal saline to 50 mL per hour. His Procol serotonin is elevated at 0.8, is currently on cefepime and infectious disease has been consulted. Doppler is negative but showing groin lymph nodes 3.3 x 0.8 x 2.2 cm. Abdominal ultrasound is pending 11/05/2019 Patient still itching however he feels a little bit stronger. No chest pain or dyspnea more than usual. Vitals remained stable and he's afebrile since fever on admission. Labs are still pending. Abdominal ultrasound showing kidney cyst. He remains on cefepime and normal saline at 50, is on Filgrastim and vitamin B12 replacement therapy. Is still on heparin for DVT prophylaxis as well as aspirin and brilinta, we will increase his dose of Benadryl. We'll ask for PT evaluation Objective - Vital Signs Vital signs: Vital Signs Temp 97.6 F 11/05/19 05:00 Pulse 88 11/05/19 07:43 Resp 16 11/05/19 05:00 BP 135/74 11/05/19 05:00 Pulse Ox 97 11/05/19 05:00 Intake & Output 11/04/19 11/05/19 11/05/19 18:59 06:59 18:59 Intake Total 450 740 Output Total 350 Balance 450 390 Intake: Intake, IV Titration 450 500 Amount Cefepime 2 gm In Sodium 100 100 Chloride 0.9% 100 ml @ 200 mls/hr IVPB Q8HR [facility] Rx#:[id number] Sodium Chloride 0.9% 1, 350 400 000 ml @ 50 mls/hr IV . Q20H [facility] Rx#:[id number] Oral 240 Output: Urine 350 Other: Voiding Method Urinal Urinal # Voids 2 - Exam GENERAL: The patient is alert and oriented x3, not in any acute distress. Well developed, well nourished. HEENT: Pupils are round and equally reacting to light. EOMI. No scleral icterus. No conjunctival pallor. Normocephalic, atraumatic. No pharyngeal erythema. No thyromegaly. CARDIOVASCULAR: S1 and S2 present. No murmurs, rubs, or gallops. -PULMONARY: Chest is clear to auscultation, bilateral expiratory wheezing with tachypnea ABDOMEN: Soft, nontender, nondistended, normoactive bowel sounds. No palpable organomegaly. MUSCULOSKELETAL: No joint swelling or deformity. -EXTREMITIES: No cyanosis, clubbing, or pedal edema. Left ankle ulcer over the medial malleolus, about 1x 0.5 inches in diameter, with no surrounding cellulitis or purulent discharge NEUROLOGICAL: Gross neurological examination did not reveal any focal deficits. SKIN: No rashes. No petechiae - Labs CBC & Chem 7: 11/04/19 06:35 11/04/19 06:35 Labs: Abnormal Lab Results - Last 24 Hours (Table) 11/03/19 11/03/19 11/04/19 Range/Units 07:43 07:43 06:35 Plt Count 62 L (150-450) k/uL Albumin (PEP) 2.49 L (3.80-4.90) g/dL [id number] 0.48 H (0.10-0.40) g/dL RBC Folate 796 H (280 - 791) ng/mL Microbiology - Last 24 Hours (Table) 11/02/19 22:34 Blood Culture - Preliminary Blood No Growth after 48 hours 11/03/19 07:43 Blood Culture - Preliminary Blood No Growth after 24 hours Assessment and Plan Assessment: Pancytopenia Possible Febrile neutropenia Sepsis secondary to above with SIRS syndrome with fever, leukopenia, and tachypnea. Anemia of chronic disease Borderline low vitamin B12, replaced right groin lymph nodes 3.3 x 0.8 x 2.2 cm Chronic Left ankle ulcer over the medial malleolus with history of Pseudomonas in the culture Acute COPD exacerbation Hypertension Hyperlipidemia History of coronary artery disease status post 4 stents History of the venous thrombosis GERD Memory impairment Osteoarthritis Rheumatoid arthritis History of dislocation Psoriasis Chronic hip and back pain status post back surgery and fusion Plan: This is a pleasant 63 years old male who presents with febrile pancytopenia/neutropenia. Check lactic acid, follow-up pancytopenia numbers especially WBC with differential. Consults on follow-up recommendation by Infectious disease and hematology consults. Continue with antibiotic as per infectious disease recommendation and follow-up culture results. Continue with steroids, breathing treatments and oxygen Patient counseled to quit smoking. Nicotine patch Labs and medication were reviewed.. Continue same treatment. Continue with symptomatic treatment. Resume home medication. Monitor lytes and vitals. DVT and GI prophylaxis. Further recommendations of the clinical course of the patient DVT prophylaxis: Subcutaneous heparin GI Prophylaxis: Pepcid PT/OT: Pending Prognosis is guarded
[2019-11-05] MEDS: hydrOXYzine HCL 25 MG TAB PO PRN (11:33)
[2019-11-05] MEDS: ACETAMINOPHEN TAB 325 MG TAB PO PRN (11:34)
[2019-11-05] MEDS: BETAMETHASONE DIPROPIONATE 0.05% CREAM 15 GM TUBE TOPICAL SCH ×2 (11:34→20:32)
[2019-11-05] MEDS ORDERED: KETOROLAC 30 MG/ML 1 ML VIAL IVP STA (16:38)
[2019-11-06] MEDS: HYDROcodone/APAP 5-325MG 1 EACH TAB PO PRN ×5 (00:31→22:48)
[2019-11-06] MEDS: diphenhydrAMINE 50 MG/ML 1 ML VIAL IVP PRN ×3 (00:32→16:49)
[2019-11-06] MEDS: SODIUM CHLORIDE 0.9% 1,000 ML IV SCH ×4 (02:44→23:57)
[2019-11-06] MEDS: IPRATROPIUM-ALBUTEROL 3 ML NEB INHALATION SCH ×4 (07:14→18:45)
[2019-11-06] MEDS: SYMBICORT 160-4.5 MCG INHALER INHALATION SCH ×2 (07:16→18:44)
[2019-11-06 07:29] LABS: African American GFR (CKD) >90 (>60 ml/min/1.73 sqM); Anion Gap 6 mmol/L; Blood Urea Nitrogen 33 mg/dL (9-20); Calcium 8.4 mg/dL (8.4-10.2); Carbon Dioxide 26 mmol/L (22-30); Chloride 113 mmol/L (98-107); Glucose 94 mg/dL (74-99); Non-African American GFR(CKD) >90 (>60 ml/min/1.73 sqM); Potassium 4.6 mmol/L (3.5-5.1); Sodium 145 mmol/L (137-145)
[2019-11-06 07:39] LABS: Anisocytosis Moderate; HCT 24.6 % (39.0-53.0); HGB 7.7 gm/dL (13.0-17.5); Hypochromasia Slight; MCH 30.2 pg (25.0-35.0); MCHC 31.5 g/dL (31.0-37.0); MCV 96.1 fL (80.0-100.0); Macrocytosis Slight; Mean Platelet Volume 9.7; Poikilocytosis Slight; RBC 2.56 m/uL (4.30-5.90); RDW 21.1 % (11.5-15.5)
[2019-11-06 07:48] LABS: Platelet Count 43 k/uL (150-450)
[2019-11-06] MEDS: NICOTINE 14MG/24HR PATCH TRANSDERM SCH (08:50)
[2019-11-06] MEDS: CARVEDILOL 3.125 MG TAB PO SCH ×2 (08:50→16:48)
[2019-11-06] MEDS: LORATADINE 10 MG TAB PO SCH (08:50)
[2019-11-06] MEDS: CEFEPIME 2 GM in SODIUM CHLORIDE 0.9% 100 ML IVPB SCH ×3 (08:50→23:08)
[2019-11-06] MEDS: ASPIRIN 81 MG PO SCH (08:50)
[2019-11-06] MEDS: ATORVASTATIN 80 MG TAB PO SCH (08:50)
[2019-11-06] MEDS: GABAPENTIN 300 MG CAP PO SCH ×3 (08:50→21:22)
[2019-11-06] MEDS: FERROUS SULFATE 325 MG TAB PO SCH (08:50)
[2019-11-06] MEDS: LISINOPRIL 10 MG TAB PO SCH (08:50)
[2019-11-06] MEDS: FAMOTIDINE 20 MG/2 ML VIAL IV SCH ×2 (08:51→20:14)
[2019-11-06] MEDS: HEPARIN SODIUM,PORCINE 5,000 UNIT/ML 1 ML VIAL SQ SCH (08:51)
[2019-11-06] MEDS: CITALOPRAM HYDROBROMIDE 20 MG TAB PO SCH (08:51)
[2019-11-06] MEDS: FUROSEMIDE 40 MG TAB PO SCH (08:51)
[2019-11-06] MEDS: CYANOCOBALAMIN 500 MCG TAB PO SCH (08:51)
[2019-11-06] MEDS: BETAMETHASONE DIPROPIONATE 0.05% CREAM 15 GM TUBE TOPICAL SCH ×2 (08:56→20:15)
[2019-11-06] MEDS: DONEPEZIL 5 MG TAB PO SCH (08:56)
[2019-11-06] MEDS: FILGRASTIM-SNDZ 300 MCG/0.5 ML SYRINGE SQ SCH (08:56)
[2019-11-06] MEDS: TICAGRELOR 90 MG TAB PO SCH ×2 (08:56→20:14)
[2019-11-06 09:11] LABS: Metamyelocytes # (M) 0.04 k/uL (0); Metamyelocytes % 1 %; Myelocytes # (M) 0.04 k/uL (0); Myelocytes % 1 %; Neutrophils % (M) 54 %; Nucleated Red Blood Cells 5 /100 WBC (0-0); Total Cells Counted 200
[2019-11-06 09:12] LABS: Eosinophils # (M) 0.27 k/uL (0-0.7); Lymphocytes # (M) 1.17 k/uL (1.0-4.8); Monocytes # (M) 0.31 k/uL (0-1.0); Neutrophils # (M) 2.11 k/uL (1.3-7.7); WBC 3.9 k/uL (3.8-10.6)
--- NOTE | 2019-11-06 09:28 | P.PN ---
Subjective On-call hospitalist covering Dr. Woodson 11/03-11/06 This is a pleasant 63 years old male with past medical history of coronary artery disease status post stent placement, COPD, DVT, gastroesophageal reflux disease, hyperlipidemia, hypertension, memory impairment, osteoarthritis, rheumatoid arthritis, hip dislocation, psoriasis, gout, back and hip pain. Left ankle wound with culture growing Pseudomonas. Peripheral vascular disease with stent placement. Status post back surgery with fusion. He presents to the hospital because his planning consultant who sees him for psoriasis Dr. steen noticed low white blood cell count and his blood. Patient has been complaining of from dyspnea for about a week, associated with a dry cough and right-sided chest pain for the last 3-4 days about a/10 in severity. Like something grabbing his chest increased with movement and coughing and deep inspiration. Also has been complaining of from left ankle ulcer for about 2-3 years now Patient has history of DVT about 20 years ago however his anticoagulation has been stopped by his doctor Patient still smokes cigarettes, he states that cigarette was about 2 weeks ago and he states he smoked sporadically. No alcohol or illicit drugs On the presentation patient had fever off 100.1, blood pressure is 97/60. Heart rate 87. He saturating 92% on 4 L oxygen. Labs showing WBC of 0.9, previously was normal. Hemoglobin is 8.1, platelets is 82. Liver enzymes not elevated, troponin is less than 0.012. EKG showing normal sinus rhythm at [address]-T changes and QTC of 493. Chest x-ray: No acute consultation are process by radiologist. Urine is negative. Her admission patient was started on cefepime and got 1 L of normal saline Bundle Clerk was consulted from emergency room, we'll consult also infectious disease 11/04/2019 Patient dyspnea is as baseline has been evaluated by Dr. Bermudez. He has minimal cough and no chest pain today. He is complaining of from severe itching and chronic left hip and back pain. No lymphadenopathy felt by palpation on both groin areas, he has chronic left ankle ulcer, he has itching/excoriation tineo on his both legs. Vitals are stable, no more fever since yesterday and he saturating 97% in 2 L. His BMP from today is unremarkable, Showing anemia of chronic disease and B12 is low normal was going to be replaced by pills. His CBC from this morning is pending Hematology team evaluated the patient and start him on Filgrastim, nor normal saline to 50 mL per hour. His Procol serotonin is elevated at 0.8, is currently on cefepime and infectious disease has been consulted. Doppler is negative but showing groin lymph nodes 3.3 x 0.8 x 2.2 cm. Abdominal ultrasound is pending 11/05/2019 Patient still itching however he feels a little bit stronger. No chest pain or dyspnea more than usual. Vitals remained stable and he's afebrile since fever on admission. Labs are still pending. Abdominal ultrasound showing kidney cyst. He remains on cefepime and normal saline at 50, is on Filgrastim and vitamin B12 replacement therapy. Is still on heparin for DVT prophylaxis as well as aspirin and brilinta, we will increase his dose of Benadryl. We'll ask for PT evaluation 11/06/2019 Patient dyspnea is at baseline, still complaining of from itching all over and generalized pain especially in the lower back, he agrees for lidocaine patch. Continue with Benadryl. He is hemodynamically stable. WBC is came back to normal at 3.9, hemoglobin 7.7 however platelets came lower at 40 3K, some subcu heparin has discontinued. BMP is unremarkable. Patient remains on cefepime with no more fever. Patient might benefit from ECF for rehab Objective - Vital Signs Vital signs: Vital Signs Temp 98.2 F 11/06/19 05:00 Pulse 73 11/06/19 08:00 Resp 16 11/06/19 08:00 BP 116/69 11/06/19 05:00 Pulse Ox 95 11/06/19 07:14 Intake & Output 11/05/19 11/06/19 11/06/19 18:59 06:59 18:59 Intake Total 400 240 Output Total 300 Balance 400 -300 240 Intake: Intake, IV Titration 400 Amount Sodium Chloride 0.9% 1, 400 000 ml @ 50 mls/hr IV . Q20H [facility] Rx#:[id number] Oral 240 Output: Urine 300 Other: Voiding Method Urinal Urinal Urinal # Voids 1 - Exam GENERAL: The patient is alert and oriented x3, not in any acute distress. Well developed, well nourished. HEENT: Pupils are round and equally reacting to light. EOMI. No scleral icterus. No conjunctival pallor. Normocephalic, atraumatic. No pharyngeal erythema. No thyromegaly. CARDIOVASCULAR: S1 and S2 present. No murmurs, rubs, or gallops. -PULMONARY: Chest is clear to auscultation, bilateral expiratory wheezing with tachypnea ABDOMEN: Soft, nontender, nondistended, normoactive bowel sounds. No palpable organomegaly. MUSCULOSKELETAL: No joint swelling or deformity. -EXTREMITIES: No cyanosis, clubbing, or pedal edema. Left ankle ulcer over the medial malleolus, about 1x 0.5 inches in diameter, with no surrounding cellulitis or purulent discharge NEUROLOGICAL: Gross neurological examination did not reveal any focal deficits. SKIN: No rashes. No petechiae - Labs CBC & Chem 7: 11/06/19 06:49 11/06/19 06:49 Labs: Abnormal Lab Results - Last 24 Hours (Table) 11/06/19 11/06/19 Range/Units 06:49 06:49 RBC 2.56 L (4.30-5.90) m/uL Hgb 7.7 L (13.0-17.5) gm/dL Hct 24.6 L (39.0-53.0) % RDW 21.1 H (11.5-15.5) % Plt Count 43 L (150-450) k/uL Metamyelocytes # (Man) 0.04 H (0) k/uL Myelocytes # (Manual) 0.04 H (0) k/uL Nucleated RBCs 5 H (0-0) /100 WBC Chloride 113 H (98-107) mmol/L BUN 33 H (9-20) mg/dL Microbiology - Last 24 Hours (Table) 11/02/19 22:34 Blood Culture - Preliminary Blood No Growth after 72 hours 11/05/19 07:46 Gram Stain - Preliminary Sputum Sputum Culture - Preliminary 11/03/19 07:43 Blood Culture - Preliminary Blood No Growth after 48 hours Assessment and Plan Assessment: Pancytopenia Possible Febrile neutropenia Sepsis secondary to above with SIRS syndrome with fever, leukopenia, and tachypnea. Anemia of chronic disease Borderline low vitamin B12, replaced right groin lymph nodes 3.3 x 0.8 x 2.2 cm Chronic Left ankle ulcer over the medial malleolus with history of Pseudomonas in the culture Acute COPD exacerbation Hypertension Hyperlipidemia History of coronary artery disease status post 4 stents History of the venous thrombosis GERD Memory impairment Osteoarthritis Rheumatoid arthritis History of dislocation Psoriasis Chronic hip and back pain status post back surgery and fusion Plan: This is a pleasant 63 years old male who presents with febrile pancytopenia/neutropenia. Check lactic acid, follow-up pancytopenia numbers especially WBC with differential. Consults on follow-up recommendation by Infectious disease and hematology consults. Continue with antibiotic as per infectious disease recommendation and follow-up culture results. Continue with steroids, breathing treatments and oxygen Patient counseled to quit smoking. Nicotine patch Labs and medication were reviewed.. Continue same treatment. Continue with symptomatic treatment. Resume home medication. Monitor lytes and vitals. DVT and GI prophylaxis. Further recommendations of the clinical course of the patient DVT prophylaxis: Subcutaneous heparin GI Prophylaxis: Pepcid PT/OT: Pending Prognosis is guarded
[2019-11-06] MEDS: LIDOCAINE 5% PATCH TOPICAL SCH (12:35)
[2019-11-06] MEDS: hydrOXYzine HCL 25 MG TAB PO PRN ×2 (14:13→20:14)
--- NOTE | 2019-11-06 21:40 | P.PN ---
Subjective Progress Note Date: 11/06/19 The patient continues to complain of generalized weakness, and shortness of breath at baseline. No fever/chills/nausea/vomiting. No obvious bleeding. He continues to have generalized itching. He has not had any new active rash. Objective - Vital Signs Vital signs: Vital Signs Temp 98.1 F 11/06/19 21:00 Pulse 87 11/06/19 21:00 Resp 20 11/06/19 21:00 BP 115/65 11/06/19 21:00 Pulse Ox 97 11/06/19 21:00 Intake & Output 11/06/19 11/06/19 11/07/19 06:59 18:59 06:59 Intake Total 640 Output Total 300 300 Balance -300 340 Intake: Intake, IV Titration 400 Amount Sodium Chloride 0.9% 1, 400 000 ml @ 50 mls/hr IV . Q20H [facility] Rx#:[id number] Oral 240 Output: Urine 300 300 Other: Voiding Method Urinal Urinal # Voids 1 1 - Constitutional General appearance: Present: no acute distress - EENT Eyes: Present: EOMI ENT: Present: hearing grossly normal, normal oropharynx - Respiratory Respiratory: bilateral: CTA - Cardiovascular Rhythm: regular Heart sounds: normal: S1 - Gastrointestinal General gastrointestinal: Present: normal bowel sounds, soft - Integumentary Integumentary Comment(s): Generalized dryness and sequel a of itching. No active psoriasis lesions. Generalized pigmentation changes due to psoriasis - Neurologic Neurologic: Present: CNII-XII intact - Musculoskeletal Musculoskeletal: Present: strength equal bilaterally - Psychiatric Psychiatric: Present: A&O x's 3, appropriate affect - Labs CBC & Chem 7: 11/06/19 06:49 11/06/19 06:49 Labs: Abnormal Lab Results - Last 24 Hours (Table) 11/06/19 11/06/19 Range/Units 06:49 06:49 RBC 2.56 L (4.30-5.90) m/uL Hgb 7.7 L (13.0-17.5) gm/dL Hct 24.6 L (39.0-53.0) % RDW 21.1 H (11.5-15.5) % Plt Count 43 L (150-450) k/uL Metamyelocytes # (Man) 0.04 H (0) k/uL Myelocytes # (Manual) 0.04 H (0) k/uL Nucleated RBCs 5 H (0-0) /100 WBC Chloride 113 H (98-107) mmol/L BUN 33 H (9-20) mg/dL Microbiology - Last 24 Hours (Table) 11/05/19 07:46 Gram Stain - Preliminary Sputum Sputum Culture - Preliminary Alison albicans 11/03/19 07:43 Blood Culture - Preliminary Blood No Growth after 72 hours 11/02/19 22:34 Blood Culture - Preliminary Blood No Growth after 72 hours Assessment and Plan (1) Pancytopenia Narrative/Plan: Etiology remains unclear at this time. WBC is improved with filgrastim, but other counts remain low. Lab workup is negative so far, other than a very small monoclonal protein which is most likely incidental. The above was discussed with the patient and his family. There are case reports of severe pancytopenia related to Humira. Autoimmune pancytopenia due to underlying disease is also possibility. The patient does not show improvement in his counts over the next 1-2 days, then a bone marrow aspiration biopsy will be performed. The procedure was discussed with the patient and his family. continue filgrastim. Transfuse to keep hemoglobin greater than 7, and platelets > 10 Current Visit: Yes Status: Acute Priority: High Code(s): D61.818 - OTHER PANCYTOPENIA SNOMED Code(s): 867901810 Plan: Defer to the admitting service and other consultants for management of his other medical problems
[2019-11-07] MEDS: diphenhydrAMINE 50 MG/ML 1 ML VIAL IVP PRN (01:06)
[2019-11-07] MEDS: SODIUM CHLORIDE 0.9% 1,000 ML IV SCH ×2 (01:09→19:44)
[2019-11-07] MEDS ORDERED: IPRATROPIUM-ALBUTEROL 3 ML NEB INHALATION PRN (02:26)
--- NOTE | 2019-11-07 03:02 | XR ---
EXAMINATION TYPE: XR chest 1V portable DATE OF EXAM: 11/07/2019 COMPARISON: 11/02/2019 HISTORY: Short of breath. Cough. TECHNIQUE: FINDINGS: Heart is normal. Lungs are clear of consolidation. There is some elevation of the left diap hragm. There is small linear density left lung base. There are no hilar masses. There are calcified g ranulomata at the pulmonary alice. IMPRESSION: Pleural diaphragmatic scarring at the left lung base. No change compared to old exam. No acute lung disease. Normal heart.
[2019-11-07] MEDS: guaiFENesin 600 MG TABLET.ER PO SCH ×3 (03:07→21:31)
[2019-11-07] MEDS: HYDROcodone/APAP 5-325MG 1 EACH TAB PO PRN ×5 (03:07→22:01)
--- NOTE | 2019-11-07 06:59 | PN ---
PROGRESS NOTE DATE OF SERVICE: 11/06/2019 REASON FOR FOLLOWUP: Fever and neutropenia. INTERVAL HISTORY: The patient is currently afebrile, has been breathing comfortably. Patient denies having any chest pain, some shortness of breath. Minimal cough which is dry. No nausea, vomiting. No abdominal pain or pain to the left medial ankle area. PHYSICAL EXAMINATION: Blood pressure is 115/65 with a pulse of 87, temperature 98.1. He is 97% on 2 L nasal cannula. General description is an elderly male lying in bed in no distress. RESPIRATORY SYSTEM: Unlabored breathing, clear to auscultation anteriorly. HEART: S1, S2. Regular rate and rhythm. ABDOMEN: Soft, no tenderness. Left medial ankle wound is currently dried up, no redness or any drainage. LABS: Hemoglobin 7.7, white count 3.9. BUN of 33, creatinine 0.69. Sputum with Alison albicans. Blood culture has been negative. DIAGNOSTIC IMPRESSION AND PLAN: 1. Patient with fever that is admitted to the hospital with pancytopenia, possibly related to his psoriasis medication. Patient currently with no obvious clinical focus of infection. The culture remains to be negative. White count has normalized. Antibiotic can be safely discontinued. 2. Left medial ankle wound with no cellulitis. Local care to continue with Aquacel silver dressing. Follow up in the wound care center as scheduled. MMODL / IJN: [id number] /
[2019-11-07 07:38] LABS: Anisocytosis Moderate; HCT 23.5 % (39.0-53.0); HGB 7.5 gm/dL (13.0-17.5); Hypochromasia Slight; MCH 30.2 pg (25.0-35.0); MCHC 31.8 g/dL (31.0-37.0); MCV 94.9 fL (80.0-100.0); Macrocytosis Slight; Mean Platelet Volume 10.7; Poikilocytosis Slight; RBC 2.47 m/uL (4.30-5.90); RDW 21.7 % (11.5-15.5)
[2019-11-07 07:42] LABS: Platelet Count 48 k/uL (150-450)
[2019-11-07 07:48] LABS: African American GFR (CKD) >90 (>60 ml/min/1.73 sqM); Anion Gap 4 mmol/L; Blood Urea Nitrogen 31 mg/dL (9-20); Calcium 8.4 mg/dL (8.4-10.2); Carbon Dioxide 27 mmol/L (22-30); Chloride 112 mmol/L (98-107); Glucose 89 mg/dL (74-99); Non-African American GFR(CKD) >90 (>60 ml/min/1.73 sqM); Potassium 4.4 mmol/L (3.5-5.1); Sodium 143 mmol/L (137-145)
[2019-11-07] MEDS: IPRATROPIUM-ALBUTEROL 3 ML NEB INHALATION SCH ×4 (08:01→20:35)
[2019-11-07] MEDS: SYMBICORT 160-4.5 MCG INHALER INHALATION SCH ×2 (08:01→20:35)
[2019-11-07] MEDS: CEFEPIME 2 GM in SODIUM CHLORIDE 0.9% 100 ML IVPB SCH ×3 (08:47→23:28)
[2019-11-07] MEDS: DONEPEZIL 5 MG TAB PO SCH (08:49)
[2019-11-07] MEDS: NICOTINE 14MG/24HR PATCH TRANSDERM SCH (08:49)
[2019-11-07] MEDS: TICAGRELOR 90 MG TAB PO SCH ×2 (08:49→21:32)
[2019-11-07] MEDS: LISINOPRIL 10 MG TAB PO SCH (08:49)
[2019-11-07] MEDS: FUROSEMIDE 40 MG TAB PO SCH (08:49)
[2019-11-07] MEDS: FERROUS SULFATE 325 MG TAB PO SCH (08:49)
[2019-11-07] MEDS: CYANOCOBALAMIN 500 MCG TAB PO SCH (08:50)
[2019-11-07] MEDS: ATORVASTATIN 80 MG TAB PO SCH (08:50)
[2019-11-07] MEDS: GABAPENTIN 300 MG CAP PO SCH ×3 (08:50→23:27)
[2019-11-07] MEDS: CITALOPRAM HYDROBROMIDE 20 MG TAB PO SCH (08:51)
[2019-11-07] MEDS: CARVEDILOL 3.125 MG TAB PO SCH ×2 (08:51→17:39)
[2019-11-07] MEDS: LORATADINE 10 MG TAB PO SCH (08:51)
[2019-11-07] MEDS: FAMOTIDINE 20 MG/2 ML VIAL IV SCH ×2 (08:51→21:31)
[2019-11-07] MEDS: ASPIRIN 81 MG PO SCH (08:57)
[2019-11-07] MEDS: LIDOCAINE 5% PATCH TOPICAL SCH (08:58)
[2019-11-07] MEDS: BETAMETHASONE DIPROPIONATE 0.05% CREAM 15 GM TUBE TOPICAL SCH ×2 (08:59→21:31)
[2019-11-07 09:06] LABS: Band Neutrophils % 3 %; Metamyelocytes % 2 %; Myelocytes % 2 %; Neutrophils % (M) 40 %
[2019-11-07 09:12] LABS: Nucleated Red Blood Cells 7 /100 WBC (0-0); Total Cells Counted 200
[2019-11-07 09:13] LABS: Basophils # (M) 0.11 k/uL (0-0.2); Blast Cells # (M) 0.11 k/uL (0); Eosinophils # (M) 0.77 k/uL (0-0.7); Lymphocytes # (M) 2.53 k/uL (1.0-4.8); Metamyelocytes # (M) 0.22 k/uL (0); Monocytes # (M) 2.53 k/uL (0-1.0); Myelocytes # (M) 0.22 k/uL (0); Polychromasia Present
[2019-11-07 10:43] LABS: Parvovirus B-19 IgG Antibodies 0.46 INDEX (<=0.90); Parvovirus B-19 IgM Antibodies 1.24 INDEX (<=0.90)
--- NOTE | 2019-11-07 11:13 | CT ---
EXAMINATION TYPE: CT angio chest DATE OF EXAM: 11/07/2019 COMPARISON: Chest x-ray earlier today and older x-rays HISTORY: Shortness of breath and cough. CT DLP: 173 mGycm. Automated Exposure Control for Dose Reduction was Utilized. CONTRAST: CTA scan of the thorax is performed with IV Contrast, patient injected with 100 mL of Isovue 370, pul monary embolism protocol. MIP Images are created on CT scanner and reviewed. FINDINGS: LUNGS: Background moderate underlying emphysematous change. Redemonstration of elevated left hemidiap hragm. Patchy bibasilar linear scarring and/or atelectasis. No suspicious nodules or masses. No suspi cious new consolidation. No pneumothorax. Trace right greater than left pleural effusions or fluid co llection axial image 100 for reference. MEDIASTINUM: There is suboptimal study with less than optimal opacification of pulmonary arteries but no convincing CT evidence for acute pulmonary embolism. There are no greater than 1 cm hilar or med iastinal lymph nodes. No cardiomegaly or pericardial effusion is seen. Severe three-vessel coronary artery calcification is present which is noted marking for underlying coronary artery disease. Moder ate predominantly calcified plaque of the aorta extends into branch vessels. OTHER: [id number] multilevel spinal spine. Simple appearing 2.9 cm thin-walled cyst exophytical ly lower pole left kidney only partially imaged.. IMPRESSION: Moderate to borderline severe emphysematous change with [id number] lower lung fibro tic changes. No suspicious acute pulmonary process. Suboptimal study without CTA evidence for acute p ulmonary embolism.
--- NOTE | 2019-11-07 13:02 | P.PN ---
Subjective Progress Note Date: 11/07/19 Principal diagnosis: pancytopenia In follow-up today patient is has c/o aching all over and TRAVIS, he is weak, denied fever or bleeding Objective - Vital Signs Vital signs: Vital Signs Temp 97.8 F 11/07/19 11:49 Pulse 83 11/07/19 11:49 Resp 18 11/07/19 11:49 BP 119/59 11/07/19 11:49 Pulse Ox 95 11/07/19 11:49 Intake & Output 11/06/19 11/07/19 11/07/19 18:59 06:59 18:59 Intake Total 640 780 Output Total 300 5 5 Balance 340 775 -5 Intake: Intake, IV Titration 400 360 Amount Sodium Chloride 0.9% 1, 160 000 ml @ 20 mls/hr IV . Q24H [facility] Rx#:[id number] Sodium Chloride 0.9% 1, 400 200 000 ml @ 50 mls/hr IV . Q20H [facility] Rx#:[id number] Oral 240 420 Output: Urine 300 5 5 Other: Voiding Method Urinal Urinal Urinal # Voids 1 1 1 # Bowel Movements 1 - Constitutional General appearance: Present: disheveled, mild distress, thin - EENT EENT Comment(s): dry mouth Eyes: Present: anicteric sclerae, EOMI ENT: Present: hearing grossly normal - Respiratory Respiratory: bilateral: diminished, rhonchi (anterior) - Cardiovascular Heart sounds: normal: S1, S2 - Peripheral edema leg Peripheral Edema: bilateral: None - Gastrointestinal General gastrointestinal: Present: normal bowel sounds, soft - Neurologic Neurologic: Present: CNII-XII intact - Musculoskeletal Musculoskeletal: Present: generalized weakness, strength equal bilaterally - Psychiatric Psychiatric Comment(s): pt is angry today Psychiatric: Present: A&O x's 3, intact judgment & insight - Labs CBC & Chem 7: 11/07/19 06:28 11/07/19 06:28 Labs: Abnormal Lab Results - Last 24 Hours (Table) 11/03/19 11/07/19 11/07/19 Range/Units 12:09 06:28 06:28 WBC 11.0 H (3.8-10.6) k/uL RBC 2.47 L (4.30-5.90) m/uL Hgb 7.5 L (13.0-17.5) gm/dL Hct 23.5 L (39.0-53.0) % RDW 21.7 H (11.5-15.5) % Plt Count 48 L (150-450) k/uL Blast Cells % 1 H* % Monocytes # (Manual) 2.53 H (0-1.0) k/uL Eosinophils # (Manual) 0.77 H (0-0.7) k/uL Metamyelocytes # (Man) 0.22 H (0) k/uL Myelocytes # (Manual) 0.22 H (0) k/uL Blast Cells # (Man) 0.11 H (0) k/uL Nucleated RBCs 7 H (0-0) /100 WBC Chloride 112 H (98-107) mmol/L BUN 31 H (9-20) mg/dL Creatinine 0.64 L (0.66-1.25) mg/dL Parvovirus B19 IgM Ab 1.24 H (<=0.90) INDEX Microbiology - Last 24 Hours (Table) 11/05/19 07:46 Gram Stain - Final Sputum Sputum Culture - Final Alison albicans 11/03/19 07:43 Blood Culture - Preliminary Blood No Growth after 96 hours 11/02/19 22:34 Blood Culture - Preliminary Blood No Growth after 96 hours Assessment and Plan (1) Pancytopenia Narrative/Plan: Pancytopenia workup results show a small IgG kappa light chain paraproteinemia of 0.21, not the likely cause of such profound pancytopenia. Iron studies are adequate, kappa lambda are increased but ratio is normal. Patient has a low normal B12 level, methylmalonic acid pending. Ultrasound of the liver and spleen shows evidence of liver disease, no splenomegaly. Patient recently started treatment with monoclonal antibody Humira. Dr. Dinesh osman nd evidence of a few cases where humira did affect CBC. Plan is to hold Humira and follow-up with Dr. Montiel in 2-3 weeks to evaluate his CBC. If persistently low counts are noted or progressive weight low counts plan will be for bone marrow biopsy and aspirate at that time. Will CC a note to patient's [employer] Transfuse for hemoglobin less than 7. Transfuse to keep platelets greater than 10,000 unless patient is symptomatic GCSF for low WBC with an increase in WBC today, DC today Current Visit: Yes Status: Acute Priority: High Code(s): D61.818 - OTHER PANCYTOPENIA SNOMED Code(s): 245901547 Plan: Due to patient's change in respiratory status and c/o pain have requested a CTA
[2019-11-07] MEDS: hydrOXYzine HCL 25 MG TAB PO PRN ×2 (16:59→23:27)
[2019-11-07] MEDS: predniSONE 20 MG TAB PO SCH (17:00)
[2019-11-07 21:19] LABS: Glucose,Whole Blood 197 mg/dL (75-99)
[2019-11-07] MEDS: INSULIN ASPART (NovoLOG) 100 UNIT/ML VIAL SQ SCH (21:32)
--- NOTE | 2019-11-08 05:02 | PN ---
PROGRESS NOTE DATE OF SERVICE: 11/07/2019 REASON FOR FOLLOWUP: 1. Febrile neutropenia. 2. Patient with left medial ankle wound. INTERVAL HISTORY: The patient is currently afebrile, has been complaining of more shortness of breath. The patient did have a cough but not bringing up any sputum. No nausea, no vomiting. No abdominal pain. No diarrhea. PHYSICAL EXAMINATION: Blood pressure is 135/68 with a pulse of 79, temperature is 97.4. He is 97% on 3 L nasal cannula. General description is an elderly male lying in bed in no distress. RESPIRATORY SYSTEM: Unlabored breathing, clear to auscultation anteriorly. HEART: S1, S2. Regular rate and rhythm. ABDOMEN: Soft, no tenderness. EXTREMITIES: No edema of feet. LABS: Hemoglobin 7.5, white count of 11 with 1% blast cells. DIAGNOSTIC IMPRESSION AND PLAN: 1. Patient admitted to the hospital with pancytopenia with concern for possible medication effect. No obvious source of infection empirically covered with cefepime. If the cultures remain negative and white count remains to be normal, this can be discontinued. 2. Left medial ankle wound. Local wound care with dry Aquacel silver dressing. Continue supportive care. MMODL / IJN: [id number] /
[2019-11-08 06:52] LABS: Glucose,Whole Blood 147 mg/dL (75-99)
[2019-11-08] MEDS: IPRATROPIUM-ALBUTEROL 3 ML NEB INHALATION SCH ×4 (08:27→19:47)
[2019-11-08] MEDS: SYMBICORT 160-4.5 MCG INHALER INHALATION SCH ×2 (08:28→19:47)
[2019-11-08] MEDS: NICOTINE 14MG/24HR PATCH TRANSDERM SCH (08:48)
[2019-11-08] MEDS: CITALOPRAM HYDROBROMIDE 20 MG TAB PO SCH (08:48)
[2019-11-08] MEDS: CYANOCOBALAMIN 500 MCG TAB PO SCH (08:48)
[2019-11-08] MEDS: CARVEDILOL 3.125 MG TAB PO SCH ×2 (08:48→18:00)
[2019-11-08] MEDS: GABAPENTIN 300 MG CAP PO SCH ×3 (08:48→22:49)
[2019-11-08] MEDS: ASPIRIN 81 MG PO SCH (08:49)
[2019-11-08] MEDS: guaiFENesin 600 MG TABLET.ER PO SCH ×2 (08:49→20:46)
[2019-11-08] MEDS: LORATADINE 10 MG TAB PO SCH (08:49)
[2019-11-08] MEDS: ATORVASTATIN 80 MG TAB PO SCH (08:49)
[2019-11-08] MEDS: FAMOTIDINE 20 MG/2 ML VIAL IV SCH (08:49)
[2019-11-08] MEDS: predniSONE 20 MG TAB PO SCH (08:49)
[2019-11-08] MEDS: LISINOPRIL 10 MG TAB PO SCH (08:49)
[2019-11-08] MEDS: FERROUS SULFATE 325 MG TAB PO SCH (08:49)
[2019-11-08] MEDS: FUROSEMIDE 40 MG TAB PO SCH (08:49)
[2019-11-08] MEDS: DONEPEZIL 5 MG TAB PO SCH (08:50)
[2019-11-08] MEDS: TICAGRELOR 90 MG TAB PO SCH ×2 (08:50→21:42)
[2019-11-08] MEDS: CEFEPIME 2 GM in SODIUM CHLORIDE 0.9% 100 ML IVPB SCH ×2 (08:51→17:08)
[2019-11-08] MEDS: BETAMETHASONE DIPROPIONATE 0.05% CREAM 15 GM TUBE TOPICAL SCH ×2 (08:51→21:01)
[2019-11-08] MEDS: HYDROcodone/APAP 5-325MG 1 EACH TAB PO PRN ×4 (09:06→22:49)
[2019-11-08] MEDS: INSULIN ASPART (NovoLOG) 100 UNIT/ML VIAL SQ SCH ×4 (09:06→20:47)
[2019-11-08] MEDS: LIDOCAINE 5% PATCH TOPICAL SCH (09:06)
[2019-11-08 10:04] LABS: African American GFR (CKD) >90 (>60 ml/min/1.73 sqM); Anion Gap 6 mmol/L; Blood Urea Nitrogen 29 mg/dL (9-20); Calcium 8.4 mg/dL (8.4-10.2); Carbon Dioxide 26 mmol/L (22-30); Chloride 112 mmol/L (98-107); Glucose 237 mg/dL (74-99); Non-African American GFR(CKD) >90 (>60 ml/min/1.73 sqM); Potassium 4.1 mmol/L (3.5-5.1); Sodium 144 mmol/L (137-145)
[2019-11-08 10:06] LABS: Anisocytosis Moderate; HCT 24.6 % (39.0-53.0); HGB 7.5 gm/dL (13.0-17.5); Hypochromasia Moderate; MCH 29.4 pg (25.0-35.0); MCHC 30.5 g/dL (31.0-37.0); MCV 96.3 fL (80.0-100.0); Macrocytosis Slight; Mean Platelet Volume 11.1; Poikilocytosis Slight; RBC 2.55 m/uL (4.30-5.90)
[2019-11-08 10:12] LABS: Platelet Count 49 k/uL (150-450)
[2019-11-08 11:14] LABS: Glucose,Whole Blood 135 mg/dL (75-99)
[2019-11-08 12:03] VITALS: BMI 16.9
[2019-11-08 12:15] LABS: Band Neutrophils % 10 %; Metamyelocytes % 14 %; Myelocytes % 14 %; Neutrophils % (M) 32 %; Nucleated Red Blood Cells 2 /100 WBC (0-0); Promyelocytes % 2 %; Total Cells Counted 200
[2019-11-08 12:16] LABS: Eosinophils # (M) 0.61 k/uL (0-0.7); Large Platelets Present; Lymphocytes # (M) 2.58 k/uL (1.0-4.8); Metamyelocytes # (M) 2.13 k/uL (0); Monocytes # (M) 1.22 k/uL (0-1.0); Myelocytes # (M) 2.13 k/uL (0); Polychromasia Present; WBC 15.2 k/uL (3.8-10.6)
--- NOTE | 2019-11-08 14:59 | P.PN ---
Subjective Progress Note Date: 11/08/19 Principal diagnosis: pancytopenia Patient is 63 y/o male in diagnosed with pancytopenia, states is somewhat uncomfortable, minor shortness of breath, decreased appetite, minor weakness, denies mouth pain, chest discomfort, nausea, vomiting, diarrhea, constipation, or dysuria. Objective - Vital Signs Vital signs: Vital Signs Temp 97.9 F 11/08/19 11:33 Pulse 82 11/08/19 13:41 Resp 18 11/08/19 11:33 BP 130/65 11/08/19 11:33 Pulse Ox 97 11/08/19 11:33 Intake & Output 11/07/19 11/08/19 11/08/19 18:59 06:59 18:59 Intake Total 600 490 Output Total 5 200 Balance 595 290 Weight 51.846 kg Intake: Intake, IV Titration 250 490 Amount Cefepime 2 gm In Sodium 200 Chloride 0.9% 100 ml @ 200 mls/hr IVPB Q8HR [facility] Rx#:[id number] Sodium Chloride 0.9% 1, 140 000 ml @ 20 mls/hr IV . Q24H [facility] Rx#:[id number] Sodium Chloride 0.9% 1, 250 150 000 ml @ 50 mls/hr IV . Q20H [facility] Rx#:[id number] Oral 350 Output: Urine 5 200 Other: Voiding Method Urinal Urinal Urinal # Voids 1 - Constitutional General appearance: Present: cooperative, mild distress, thin - EENT Eyes: Present: anicteric sclerae, EOMI, poor dentition, normal appearance - Neck Neck: Present: normal ROM, other, rigidity, stridor, thyromegaly. Absent: lymphadenopathy - Respiratory Respiratory: bilateral: CTA - Cardiovascular Rhythm: regular Heart sounds: normal: S1, S2 Abnormal Heart Sounds: Absent: systolic murmur, diastolic murmur, rub, S3 Gallop, S4 Gallop, click, other - Gastrointestinal General gastrointestinal: Present: normal bowel sounds, soft - Integumentary Integumentary: Present: normal - Neurologic Neurologic: Present: CNII-XII intact - Musculoskeletal Musculoskeletal: Present: generalized weakness, strength equal bilaterally - Psychiatric Psychiatric: Present: A&O x's 3, appropriate affect - Labs CBC & Chem 7: 11/08/19 08:34 11/08/19 08:34 Labs: Abnormal Lab Results - Last 24 Hours (Table) 11/07/19 11/07/19 11/07/19 Range/Units 06:28 06:28 21:17 WBC (3.8-10.6) k/uL RBC (4.30-5.90) m/uL Hgb (13.0-17.5) gm/dL Hct (39.0-53.0) % MCHC (31.0-37.0) g/dL RDW (11.5-15.5) % Plt Count (150-450) k/uL Blast Cells % % Monocytes # (Manual) (0-1.0) k/uL Metamyelocytes # (Man) (0) k/uL Myelocytes # (Manual) (0) k/uL Promyelocytes # (Man) (0) k/uL Blast Cells # (Man) (0) k/uL Nucleated RBCs (0-0) /100 WBC Pathologist Review See comment A Chloride (98-107) mmol/L BUN (9-20) mg/dL Creatinine (0.66-1.25) mg/dL Glucose (74-99) mg/dL POC Glucose (mg/dL) 197 H (75-99) mg/dL Procalcitonin 0.62 H (0.02-0.09) ng/mL 11/08/19 11/08/19 11/08/19 Range/Units 06:51 08:34 08:34 WBC 15.2 H (3.8-10.6) k/uL RBC 2.55 L (4.30-5.90) m/uL Hgb 7.5 L (13.0-17.5) gm/dL Hct 24.6 L (39.0-53.0) % MCHC 30.5 L (31.0-37.0) g/dL RDW 22.0 H (11.5-15.5) % Plt Count 49 L (150-450) k/uL Blast Cells % 2 H* % Monocytes # (Manual) 1.22 H (0-1.0) k/uL Metamyelocytes # (Man) 2.13 H (0) k/uL Myelocytes # (Manual) 2.13 H (0) k/uL Promyelocytes # (Man) 0.30 H (0) k/uL Blast Cells # (Man) 0.30 H (0) k/uL Nucleated RBCs 2 H (0-0) /100 WBC Pathologist Review Chloride 112 H (98-107) mmol/L BUN 29 H (9-20) mg/dL Creatinine 0.62 L (0.66-1.25) mg/dL Glucose 237 H (74-99) mg/dL POC Glucose (mg/dL) 147 H (75-99) mg/dL Procalcitonin (0.02-0.09) ng/mL 11/08/19 Range/Units 11:12 WBC (3.8-10.6) k/uL RBC (4.30-5.90) m/uL Hgb (13.0-17.5) gm/dL Hct (39.0-53.0) % MCHC (31.0-37.0) g/dL RDW (11.5-15.5) % Plt Count (150-450) k/uL Blast Cells % % Monocytes # (Manual) (0-1.0) k/uL Metamyelocytes # (Man) (0) k/uL Myelocytes # (Manual) (0) k/uL Promyelocytes # (Man) (0) k/uL Blast Cells # (Man) (0) k/uL Nucleated RBCs (0-0) /100 WBC Pathologist Review Chloride (98-107) mmol/L BUN (9-20) mg/dL Creatinine (0.66-1.25) mg/dL Glucose (74-99) mg/dL POC Glucose (mg/dL) 135 H (75-99) mg/dL Procalcitonin (0.02-0.09) ng/mL Microbiology - Last 24 Hours (Table) 11/03/19 07:43 Blood Culture - Preliminary Blood No Growth after 120 hours 11/02/19 22:34 Blood Culture - Preliminary Blood No Growth after 120 hours 11/05/19 07:46 Gram Stain - Final Sputum Sputum Culture - Final Alison albicans - Imaging and Cardiology CT scan - chest: report reviewed Assessment and Plan (1) Pancytopenia Narrative/Plan: Pancytopenia workup results show a small IgG kappa light chain paraproteinemia of 0.21, not the likely cause of such profound pancytopenia. Iron studies are adequate, kappa lambda are increased but ratio is normal. Patient has a low normal B12 level, Vitamin B-12 started on 11/04/19, methylmalonic acid pending. Ultrasound of the liver and spleen shows evidence of liver disease, no splenomegaly. Patient recently started treatment with monoclonal antibody Humira. Dr. Montiel found evidence of a few cases where humira did affect CBC. Plan is to hold Humira and follow-up with Dr. Montiel in 2-3 weeks to evaluate his CBC. If persi stently low counts are noted or progressive weight low counts plan will be for bone marrow biopsy and aspirate at that time. Pathologist reviewed peripheral smear with Dr. Montiel. They discussed the blast, felt to be r/t GCSF IgM B19 Parvovirus increased at 1.24. ID is following. Transfuse for hemoglobin less than 7. Currently Hgb 7.5 Transfuse to keep platelets greater than 10,000 unless patient is symptomatic, currently 49,000. GCSF for low WBC with an increase to 15.2, GCSF was discontinued Current Visit: Yes Status: Acute Priority: High Code(s): D61.818 - OTHER PANCYTOPENIA SNOMED Code(s): 010003086 Plan: Due to patient's change in respiratory status and c/o pain have requested a CTA- negative for PE, reviewed results with pt
[2019-11-08] MEDS: SODIUM CHLORIDE 0.9% 1,000 ML IV SCH (15:24)
--- NOTE | 2019-11-08 16:10 | P.PN ---
Subjective Progress Note Date: 11/07/19 This is a pleasant 63 years old male with past medical history of coronary artery disease status post stent placement, COPD, DVT, gastroesophageal reflux disease, hyperlipidemia, hypertension, memory impairment, osteoarthritis, rheumatoid arthritis, hip dislocation, psoriasis, gout, back and hip pain. Left ankle wound with culture growing Pseudomonas. Peripheral vascular disease with stent placement. Status post back surgery with fusion. 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 steen noticed low white blood cell count and his blood. Patient has been complaining of from dyspnea for about a week, associated with a dry cough and right-sided chest pain for the last 3-4 days about a/10 in severity. Like something grabbing his chest increased with movement and coughing and deep inspiration. Also has been complaining of from left ankle ulcer for about 2-3 years now Patient has history of DVT about 20 years ago however his anticoagulation has been stopped by his doctor Patient still smokes cigarettes, he states that cigarette was about 2 weeks ago and he states he smoked sporadically. No alcohol or illicit drugs On the presentation patient had fever off 100.1, blood pressure is 97/60. Heart rate 87. He saturating 92% on 4 L oxygen. Labs showing WBC of 0.9, previously was normal. Hemoglobin is 8.1, platelets is 82. Liver enzymes not elevated, troponin is less than 0.012. EKG showing normal sinus rhythm at [address]-T changes and QTC of 493. Chest x-ray: No acute consultation are process by radiologist. Urine is negative. Her admission patient was started on cefepime and got 1 L of normal saline Director Of Staff Development was consulted from emergency room, we'll consult also infectious disease 11/07/2019 maintained on empiric IV antibiotics of cefepime, local wound care of left ankle wound as per infectious disease. Denies nausea ,vomiting or abdominal pain. Complains of shortness of breath with nonproductive cough, generalized achiness. Afebrile, WBC 11. Maintaining O2 sats in the 90s on 3 L nasal cannula. Hemoglobin 7.5. Objective - Vital Signs Vital signs: Vital Signs Temp 97.8 F 11/07/19 11:49 Pulse 83 11/07/19 11:49 Resp 18 11/07/19 11:49 BP 119/59 11/07/19 11:49 Pulse Ox 95 11/07/19 11:49 Intake & Output 11/06/19 11/07/19 11/07/19 18:59 06:59 18:59 Intake Total 640 780 600 Output Total 300 5 5 Balance 340 775 595 Intake: Intake, IV Titration 400 360 250 Amount Sodium Chloride 0.9% 1, 160 000 ml @ 20 mls/hr IV . Q24H [facility] Rx#:[id number] Sodium Chloride 0.9% 1, 400 200 250 000 ml @ 50 mls/hr IV . Q20H [facility] Rx#:[id number] Oral 240 420 350 Output: Urine 300 5 5 Other: Voiding Method Urinal Urinal Urinal # Voids 1 1 2 # Bowel Movements 1 - Exam - Exam PHYSICAL EXAM: VITAL SIGNS: [As above] GENERAL: Sitting up at bedside, slowly improving global extensive psoriatic lesions, no acute distress HEENT: Conjunctivae normal. eyes normal. Oral mucosa moist NECK: No JVD. No thyroid enlargement. No LNs CARDIOVASCULAR: S1, S2 regular.. No murmur RESPIRATION: Breath sounds diminished in the bases. No rhonchi or crackles. Expiratory wheezing ABDOMEN: Soft, nontender . No guarding. no masses palpable. No ascites, No hepatosplenomegaly.Bowel sounds heard. LEGS: No edema. no swelling PSYCHIATRY: Alert and oriented X3, mood and affect normal. NERVOUS SYSTEM: Cranial N 2-12 grossly normal. Moves all 4 limbs. Diffuse weakness No focal deficits. Strength and sensation grossly intact.. Skin: Generalized improving scaling/flaky skin, extensive psoriasis with erythema. Left ankle dressing clean dry and intact. Lymphatic system. No LN neck axilla. - Labs CBC & Chem 7: 11/08/19 08:34 11/08/19 08:34 Labs: Abnormal Lab Results - Last 24 Hours (Table) 11/03/19 11/07/19 11/07/19 Range/Units 12:09 06:28 06:28 WBC 11.0 H (3.8-10.6) k/uL RBC 2.47 L (4.30-5.90) m/uL Hgb 7.5 L (13.0-17.5) gm/dL Hct 23.5 L (39.0-53.0) % RDW 21.7 H (11.5-15.5) % Plt Count 48 L (150-450) k/uL Blast Cells % 1 H* % Monocytes # (Manual) 2.53 H (0-1.0) k/uL Eosinophils # (Manual) 0.77 H (0-0.7) k/uL Metamyelocytes # (Man) 0.22 H (0) k/uL Myelocytes # (Manual) 0.22 H (0) k/uL Blast Cells # (Man) 0.11 H (0) k/uL Nucleated RBCs 7 H (0-0) /100 WBC Chloride 112 H (98-107) mmol/L BUN 31 H (9-20) mg/dL Creatinine 0.64 L (0.66-1.25) mg/dL Parvovirus B19 IgM Ab 1.24 H (<=0.90) INDEX Microbiology - Last 24 Hours (Table) 11/05/19 07:46 Gram Stain - Final Sputum Sputum Culture - Final Alison albicans 11/03/19 07:43 Blood Culture - Preliminary Blood No Growth after 96 hours 11/02/19 22:34 Blood Culture - Preliminary Blood No Growth after 96 hours Assessment and Plan Assessment: Pancytopenia Possible Febrile neutropenia Sepsis secondary to above with SIRS syndrome with fever, leukopenia, and tachypnea. Anemia of chronic disease Borderline low vitamin B12, replaced right groin lymph nodes 3.3 x 0.8 x 2.2 cm Chronic Left ankle ulcer over the medial malleolus with history of Pseudomonas in the culture Acute COPD exacerbation in a patient with advanced COPD Hypertension Hyperlipidemia History of coronary artery disease status post 4 stents History of the venous thrombosis GERD Memory impairment Osteoarthritis Rheumatoid arthritis History of dislocation Psoriasis Chronic hip and back pain status post back surgery and fusion Plan: Continue on current medication regime ,monitoring and symptomatic treatment. IV antibiotics, wound care as per infectious disease. Maintain nebulized bronchodilators. We'll add steroids to medication regimen for his lungs, if okay with infectious disease. Increase ambulation as tolerated. Chest CTA pending. Discharge planning in progress for tomorrow pending clearance from infectious disease. The impression and plan of care has been dictated as directed. : I performed a history and examination of this patient, discussed the same with the dictator. I agree with the dictator's note ,documented as a scribe. Any additional findings or plans will be noted.
[2019-11-08 16:51] LABS: Glucose,Whole Blood 302 mg/dL (75-99)
[2019-11-08] MEDS: hydrOXYzine HCL 25 MG TAB PO PRN (17:16)
[2019-11-08 19:51] VITALS: RESP 20
[2019-11-08] MEDS: ACETAMINOPHEN TAB 325 MG TAB PO PRN (20:07)
[2019-11-08 20:08] LABS: Glucose,Whole Blood 228 mg/dL (75-99)
[2019-11-08] MEDS: FAMOTIDINE 20 MG TAB PO SCH (20:46)
--- NOTE | 2019-11-08 20:52 | PN ---
PROGRESS NOTE DATE OF SERVICE: 11/08/2019 REASON FOR FOLLOWUP: 1. Fever, neutropenic. 2. Left medial ankle wound. INTERVAL HISTORY: The patient is currently afebrile. The patient has been breathing more comfortably. Denies having any chest pain or shortness of breath. He did have some chronic cough; no worsening. No nausea. No vomiting. No abdominal pain. No diarrhea. No pain to the left medial ankle wound area. PHYSICAL EXAMINATION: Blood pressure 125/59 with a pulse of 85, temperature 98.1. He is 94% on 2 L nasal cannula. General description is an elderly male up in the bed in no distress. RESPIRATORY SYSTEM: Unlabored breathing with decreased intensity of breath sounds. No wheeze. HEART: S1, S2. Regular rate and rhythm. ABDOMEN: Soft. No tenderness. Left heel is currently dressed up. No obvious drainage on the dressing. LABS: Hemoglobin 7.5, white count 15.2, BUN of 29, creatinine 0.62. DIAGNOSTIC IMPRESSION AND PLAN: 1. Patient admitted to hospital with pancytopenia, possibly medication effect. The patient did have a low-grade fever that has resolved. Culture has been negative so far. Plan at this time is no antibiotic on discharge. 2. Left medial ankle wound. Local care to continue with Aquacel Silver dressing. Follow up [facility]. MMODL / IJN: [id number] /
[2019-11-08] MEDS ORDERED: diphenhydrAMINE 25 MG CAP PO PRN (20:55)
[2019-11-09] MEDS: SODIUM CHLORIDE 0.9% 1,000 ML IV SCH ×2 (02:31→12:31)
[2019-11-09 04:36] VITALS: BP 141/76; TEMP 97.9
[2019-11-09 07:00] LABS: Glucose,Whole Blood 116 mg/dL (75-99)
[2019-11-09] MEDS: SYMBICORT 160-4.5 MCG INHALER INHALATION SCH (07:22)
[2019-11-09] MEDS: IPRATROPIUM-ALBUTEROL 3 ML NEB INHALATION SCH ×2 (07:22→11:06)
[2019-11-09] MEDS: INSULIN ASPART (NovoLOG) 100 UNIT/ML VIAL SQ SCH ×2 (08:31→12:33)
[2019-11-09] MEDS: LIDOCAINE 5% PATCH TOPICAL SCH (08:46)
[2019-11-09] MEDS: NICOTINE 14MG/24HR PATCH TRANSDERM SCH (08:46)
[2019-11-09] MEDS: ASPIRIN 81 MG PO SCH (08:48)
[2019-11-09] MEDS: CARVEDILOL 3.125 MG TAB PO SCH (08:48)
[2019-11-09] MEDS: GABAPENTIN 300 MG CAP PO SCH (08:48)
[2019-11-09] MEDS: ATORVASTATIN 80 MG TAB PO SCH (08:48)
[2019-11-09] MEDS: FUROSEMIDE 40 MG TAB PO SCH (08:48)
[2019-11-09] MEDS: guaiFENesin 600 MG TABLET.ER PO SCH (08:48)
[2019-11-09] MEDS: LISINOPRIL 10 MG TAB PO SCH (08:48)
[2019-11-09] MEDS: CITALOPRAM HYDROBROMIDE 20 MG TAB PO SCH (08:48)
[2019-11-09] MEDS: CYANOCOBALAMIN 500 MCG TAB PO SCH (08:48)
[2019-11-09] MEDS: FAMOTIDINE 20 MG TAB PO SCH (08:48)
[2019-11-09] MEDS: FERROUS SULFATE 325 MG TAB PO SCH (08:48)
[2019-11-09] MEDS: TICAGRELOR 90 MG TAB PO SCH (08:49)
[2019-11-09] MEDS: predniSONE 20 MG TAB PO SCH (08:49)
[2019-11-09] MEDS: DONEPEZIL 5 MG TAB PO SCH (08:49)
[2019-11-09] MEDS: BETAMETHASONE DIPROPIONATE 0.05% CREAM 15 GM TUBE TOPICAL SCH (08:49)
[2019-11-09] MEDS: LORATADINE 10 MG TAB PO SCH (08:49)
[2019-11-09 11:08] LABS: Glucose,Whole Blood 165 mg/dL (75-99)
[2019-11-09 12:01] VITALS: PULSE 80
[2019-11-09] MEDS: hydrOXYzine HCL 25 MG TAB PO PRN (12:10)
--- NOTE | 2019-11-09 14:13 | PN ---
PROGRESS NOTE DATE OF SERVICE: 11/09/2019 REASON FOR FOLLOWUP: 1. Fever. 2. Left medial ankle wound. INTERVAL HISTORY: The patient was seen on rounds this morning. Patient has been afebrile, has been breathing more comfortably. Denies having any chest pain. He did have some cough which has decreased in intensity and drainage. No nausea. No abdominal pain. No diarrhea and no pain to the left medial ankle wound area. PHYSICAL EXAMINATION: Blood pressure is 141/76, pulse of 80, temperature 97.9, she is 96% on 2 L nasal cannula. General description is an elderly male, lying in bed in no distress. RESPIRATORY SYSTEM: Unlabored breathing, decreased intensity of breath sounds, no wheeze. HEART: S1, S2. Regular rate and rhythm. ABDOMEN: Soft, no tenderness. LABS: No new labs have been obtained today. Blood culture has been negative. Sputum with Alison albicans. DIAGNOSTIC IMPRESSION AND PLAN: 1. Patient was admitted to hospital with pancytopenia, more likely drug-related. Has shown overall improvement with recovery of her BONNIE count. He did have a low-grade fever. Culture has been negative. Antibiotic can be safely. 2. Left medial ankle wound. Local wound care with a dry Aquacel Silver dressing and follow up in the [facility]ound Center in one week. MMODL / IJN: [id number] /
--- NOTE | 2019-11-10 14:31 | CDI ---
Documentation Clarification Form Date: 11/10/19 From: Linn Beckett CCS Phone: If you have a question about this query, please contact Eva Hatfield, Historian [employer]amatic [employer] at [phone] between 8am and 5pm. Admit Date: 11/04/19 Discharge Date: 11/09/19 Patient Name: Carmita Tineo Visit Number: [id number] ATTENTION: The Clinical Documentation Specialists (CDI) and [facility] Coding Staff appreciate your assistance in clarifying documentation. Please respond to the clarification below the line at the bottom and electronically sign. The CDI & [facility] Coding staff will review the response and follow-up if needed. Please note: Queries are made part of the Legal Health Record. If you have any questions, please contact the author of this message via ITS. Dear Dr. Woodson, The diagnosis sepsis was documented in the H&P, PNs, but is not noted in subsequent documentation. History/Risk Factors: PAD w/ ulcer, COPD, Anemia of CD, Clinical Indicators: Pancytopenia, neutropenia, fever Treatment: Cefepime 2 mg IVPB Please clarify if the sepsis was Present/active this admission Treated and resolved this admission Ruled out Other, please specify Clinically unable to determine Treated and resolved on this admission. MTDD
--- NOTE | 2019-11-10 15:28 | CDI ---
Documentation Clarification Form Date: 11/10/19 From: Linn Beckett CCS Phone: If you have a question about this query, please contact Eva Hatfield, Juvenile Justice Officer at [phone] between 8am and 5pm. Admit Date: 11/04/19 Discharge Date: 11/09/19 Patient Name: Carmita Tineo Visit Number: [id number] ATTENTION: The Clinical Documentation Specialists (CDI) and [facility] Coding Staff appreciate your assistance in clarifying documentation. Please respond to the clarification below the line at the bottom and electronically sign. The CDI & [facility] Coding staff will review the response and follow-up if needed. Please note: Queries are made part of the Legal Health Record. If you have any questions, please contact the author of this message via ITS. Dear Dr. Woodson, Patient has been described as cachectic. The Dietary consult on 11/03 documents severe protein calorie malnutrition in the context of chronic illness. History/Risk Factors: PAD, Anemia of chronic illness, Memory loss, COPD Clinical Indicators: thin, cachetic Patients weight is: 52.5 kg Patients height is: 5 ft 9 in. Calculated BMI is: 17.1 Muscle wasting: Severe muscle mass wasting and subcutaneous fat loss Treatments: Ensure Enlive BID Nutritional Education: Increased protein/calories for lean body mass preservation Dietary Consult: Yes In order to capture the severity of condition associated with patient BMI of 17.1, a clinical diagnosis needs to be documented by the physician. Please clarify: Cachexia Underweight Malnutrition Mild Moderate Severe Other Unable to determine Severe protein calorie malnutrition MTDD
--- NOTE | 2019-11-11 17:27 | P.DS ---
Providers Date of admission: 11/04/19 15:03 Expected date of discharge: 11/08/19 Attending physician: David Woodson Consults: 11/03/19 01:27 Consult Physician Urgent Consulting Provider: Julius Montiel Consult Reason/Comments: Pancytopenia Do you want consulting provider notified?: Yes 11/03/19 07:11 Consult Physician Urgent Consulting Provider: Connie Baerden Consult Reason/Comments: Fever with pancytopenia Do you want consulting provider notified?: Yes 11/03/19 07:32 Consult Physician Urgent Consulting Provider: Zelalem Bermudez Consult Reason/Comments: Acute COPD exacerbation Do you want consulting provider notified?: Yes Primary care physician: David Woodson [facility] Course: Final Diagnoses: Pancytopenia Possible Febrile neutropenia Sepsis secondary to above with SIRS syndrome with fever, leukopenia, and tachypnea. Anemia of chronic disease Borderline low vitamin B12, replaced right groin lymph nodes 3.3 x 0.8 x 2.2 cm Chronic Left ankle ulcer over the medial malleolus with history of Pseudomonas in the culture Acute COPD exacerbation in a patient with advanced COPD Hypertension Hyperlipidemia History of coronary artery disease status post 4 stents History of the venous thrombosis GERD Memory impairment Osteoarthritis Rheumatoid arthritis History of dislocation Psoriasis Chronic hip and back pain status post back surgery and fusion Hospital course:This is a pleasant 63 years old male with past medical history of coronary artery disease status post stent placement, COPD, DVT, gastroesophageal reflux disease, hyperlipidemia, hypertension, memory impairm ent, osteoarthritis, rheumatoid arthritis, hip dislocation, psoriasis, gout, back and hip pain. Left ankle wound with culture growing Pseudomonas. Peripheral vascular disease with stent placement. Status post back surgery with fusion. He presents to the hospital because his engineer conductor who sees him for psoriasis Dr. steen noticed low white blood cell count and his blood. Patient has been complaining of from dyspnea for about a week, associated with a dry cough and right-sided chest pain for the last 3-4 days about a/10 in severity. Like something grabbing his chest increased with movement and coughing and deep inspiration. Also has been complaining of from left ankle ulcer for about 2-3 years now Patient has history of DVT about 20 years ago however his anticoagulation has been stopped by his doctor Patient still smokes cigarettes, he states that cigarette was about 2 weeks ago and he states he smoked sporadically. No alcohol or illicit drugs On the presentation patient had fever off 100.1, blood pressure is 97/60. Heart rate 87. He saturating 92% on 4 L oxygen. Labs showing WBC of 0.9, previously was normal. Hemoglobin is 8.1, platelets is 82. Liver enzymes not elevated, troponin is less than 0.012. EKG showing normal sinus rhythm at [address]-T changes and QTC of 493. Chest x-ray: No acute consultation are process by radiologist. Urine is negative. Her admission patient was started on cefepime and got 1 L of normal saline Ekg Monitor was consulted from emergency room, we'll consult also infectious disease 11/07/2019 maintained on empiric IV antibiotics of cefepime, local wound care of left ankle wound as per infectious disease. Denies nausea ,vomiting or abdominal pain. Complains of shortness of breath with nonproductive cough, generalized achiness. Afebrile, WBC 11. Maintaining O2 sats in the 90s on 3 L nasal cannula. Hemoglobin 7.5. Significant clinical improvement. Cleared by all consults for discharge. Patient is being discharged home in stable condition with guarded prognosis. EXAM: GENERAL: improving global extensive psoriatic lesions, no acute distress CARDIOVASCULAR: S1, S2 regular.. No murmur RESPIRATION: Breath sounds diminished in the bases. ABDOMEN: Soft, nontender . No guarding. no masses palpable.Bowel sounds heard. LEGS: No edema. no swelling NERVOUS SYSTEM: No focal deficits. Skin: Generalized improving scaling/flaky skin, extensive psoriasis. Left ankle dressing clean dry and intact. Lymphatic system. No LN neck axilla. The impression and plan of care has been dictated as directed. : I performed a history and examination of this patient, discussed the same with the dictator. I agree with the dictator's note ,documented as a scribe. Any additional findings or plans will be noted. Patient Condition at Discharge: Stable Plan - Discharge Summary Discharge Rx Participant: Yes New Discharge Prescriptions: New Loratadine [Claritin] 10 mg PO DAILY tab Nicotine 14Mg/24Hr Patch [Habitrol] 1 patch TRANSDERM DAILY #30 patch predniSONE 10 mg PO DIRECTED #30 tab Budesonide-Formot 160-4.5 Mcg [Symbicort 160-4.5 Mcg Inhaler] 2 puff INHALATION RT-BID #1 inh Continue Gabapentin [Neurontin] 300 mg PO TID Ipratropium-Albuterol Nebulize [Duoneb 0.5 mg-3 mg/3 ml Soln] 3 ml INHALATION RT-QID Albuterol Sulfate [Proair Hfa] 2 puff INHALATION RT-Q4H PRN PRN Reason: Shortness Of Breath hydrOXYzine HCL 25 mg PO HS Ticagrelor [Brilinta] 90 mg PO BID Furosemide [Lasix] 40 mg PO DAILY Ferrous Sulfate [Iron] 325 mg PO DAILY Carvedilol [Coreg] 3.125 mg PO BID traMADol HCL [traMADol HCL ER] 100 mg PO Q12H PRN PRN Reason: Pain Triamcinolone 0.1% Cream [Kenalog 0.1% Cream] 1 applicatio TOPICAL BID Methotrexate Sodium [Methotrexate] 15 mg PO Q7D Furosemide [Lasix] 20 mg PO HS Adalimumab [Humira Pen Crohn's-Uc-Hs] 40 mg SQ Q14D Folic Acid 1 mg PO DIRECTED Aspirin EC [Ecotrin Low Dose] 81 mg PO DAILY Lisinopril [Zestril] 10 mg PO DAILY Donepezil [Aricept] 5 mg PO DAILY Citalopram Hydrobromide [CeleXA] 20 mg PO DAILY Atorvastatin [Lipitor] 80 mg PO DAILY Allopurinol [Zyloprim] 300 mg PO DAILY Discontinued Metoprolol Tartrate [Lopressor] 50 mg PO BID Discharge Medication List Gabapentin [Neurontin] 300 mg PO TID 05/17/19 [History] Ipratropium-Albuterol Nebulize [Duoneb 0.5 mg-3 mg/3 ml Soln] 3 ml INHALATION R T-QID 06/18/19 [History] Albuterol Sulfate [Proair Hfa] 2 puff INHALATION RT-Q4H PRN 07/30/19 [History] Carvedilol [Coreg] 3.125 mg PO BID 09/12/19 [History] Ferrous Sulfate [Iron] 325 mg PO DAILY 09/12/19 [History] Furosemide [Lasix] 40 mg PO DAILY 09/12/19 [History] Ticagrelor [Brilinta] 90 mg PO BID 09/12/19 [History] hydrOXYzine HCL 25 mg PO HS 09/12/19 [History] Adalimumab [Humira Pen Crohn's-Uc-Hs] 40 mg SQ Q14D 11/03/19 [History] Allopurinol [Zyloprim] 300 mg PO DAILY 11/03/19 [History] Aspirin EC [Ecotrin Low Dose] 81 mg PO DAILY 11/03/19 [History] Atorvastatin [Lipitor] 80 mg PO DAILY 11/03/19 [History] Citalopram Hydrobromide [CeleXA] 20 mg PO DAILY 11/03/19 [History] Donepezil [Aricept] 5 mg PO DAILY 11/03/19 [History] Folic Acid 1 mg PO DIRECTED 11/03/19 [History] Furosemide [Lasix] 20 mg PO HS 11/03/19 [History] Lisinopril [Zestril] 10 mg PO DAILY 11/03/19 [History] Methotrexate Sodium [Methotrexate] 15 mg PO Q7D 11/03/19 [History] Triamcinolone 0.1% Cream [Kenalog 0.1% Cream] 1 applicatio TOPICAL BID 11/03/19 [History] traMADol HCL [traMADol HCL ER] 100 mg PO Q12H PRN 11/03/19 [History] Budesonide-Formot 160-4.5 Mcg [Symbicort 160-4.5 Mcg Inhaler] 2 puff INHALATION RT-BID #1 inh 11/08/19 [Rx] Loratadine [Claritin] 10 mg PO DAILY tab 11/08/19 [Rx] Nicotine 14Mg/24Hr Patch [Habitrol] 1 patch TRANSDERM DAILY #30 patch 11/08/19 [Rx] predniSONE 10 mg PO DIRECTED #30 tab 11/08/19 [Rx] Follow up Appointment(s)/Referral(s): Julius Montiel MD [STAFF PHYSICIAN] - 12/01/19 4:00 pm David Woodson DO [Primary Care Provider] - 11/18/19 1:00 pm ( ) [facility] [NON-STAFF] - 1 Week Ambulatory/Diagnostic Orders: Complete Blood Count w/diff [LAB.AMB] Time Frame: 3 Days, Location: None Selected Patient Instructions/Handouts: Prednisone (By mouth), Nicotine (Absorbed through the skin), Filgrastim (By injection), Neutropenia (GEN), Pancytopenia (GEN) Activity/Diet/Wound Care/Special Instructions: No antibiotics recommended at discharge per infectious disease. Continue with current wound care as previously advised by ID Discharge Disposition: HOME SELF-CARE
== END 2019-11-09 12:15 | disposition home or self-care (01) | DRG 871 ==
LOC: EC 21:42 → 5NMEDONC 11-03 01:29 → OBSVTOIN 11-04 15:03
PROVIDERS: ADMIT Family Medicine; ATTEND Family Medicine
DX: A41.9 Sepsis, unspecified organism (principal); D61.811 Other drug-induced pancytopenia; E43 Unspecified severe protein-calorie malnutrition; L97.329 Non-pressure chronic ulcer of left ankle with unspecified severity; J44.1 Chronic obstructive pulmonary disease with (acute) exacerbation; Z68.1 Body mass index [BMI] 19.9 or less, adult; L03.116 Cellulitis of left lower limb; D70.9 Neutropenia, unspecified; D63.8 Anemia in other chronic diseases classified elsewhere; K21.9 Gastro-esophageal reflux disease without esophagitis; R50.81 Fever presenting with conditions classified elsewhere; E78.5 Hyperlipidemia, unspecified; I25.10 Atherosclerotic heart disease of native coronary artery without angina pectoris; M19.90 Unspecified osteoarthritis, unspecified site; M06.9 Rheumatoid arthritis, unspecified; I10 Essential (primary) hypertension; L40.9 Psoriasis, unspecified; G89.29 Other chronic pain; R41.3 Other amnesia; F17.210 Nicotine dependence, cigarettes, uncomplicated; M10.9 Gout, unspecified; I70.243 Atherosclerosis of native arteries of left leg with ulceration of ankle; L29.9 Pruritus, unspecified; M54.9 Dorsalgia, unspecified; K76.9 Liver disease, unspecified; N28.1 Cyst of kidney, acquired; T39.4X5A Adverse effect of antirheumatics, not elsewhere classified, initial encounter; T45.1X5A Adverse effect of antineoplastic and immunosuppressive drugs, initial encounter; Z71.3 Dietary counseling and surveillance; Z71.6 Tobacco abuse counseling; Z79.82 Long term (current) use of aspirin; Z79.899 Other long term (current) drug therapy; Z79.02 Long term (current) use of antithrombotics/antiplatelets; Z95.5 Presence of coronary angioplasty implant and graft; Z96.642 Presence of left artificial hip joint; Z86.718 Personal history of other venous thrombosis and embolism; Z95.828 Presence of other vascular implants and grafts; Z98.1 Arthrodesis status; Z86.14 Personal history of Methicillin resistant Staphylococcus aureus infection; Z87.39 Personal history of other diseases of the musculoskeletal system and connective tissue; Z98.890 Other specified postprocedural states; Z98.42 Cataract extraction status, left eye; Z98.41 Cataract extraction status, right eye; Z95.820 Peripheral vascular angioplasty status with implants and grafts; Z88.5 Allergy status to narcotic agent
CPT/HCPCS: 36415; 71045; 71046; 71275; 76700; 80048; 80053; 81003; 82607; 82728; 82747; 83540; 83550; 83605; 83883; 83921; 84145; 84165; 84484; 85025; 85610; 85730; 86038; 86334; 86431; 86747; 86850; 86900; 86901; 87040; 87070; 87205; 93005; 93970; 94640; 94760; 96365; 96366; 99285

== ENCOUNTER → 2020-05-22 | Outpatient (CLI) | payer MEDICARE ==
[~2020-05-22] MED LIST changes: -ALPRAZolam 0.25 MG TAB PO PRN; -ALPRAZolam 0.5 MG TAB PO PRN; -ASPIRIN 325 MG TAB PO STA; -ATORVASTATIN 80 MG TAB PO STA; +MORPHINE SULFATE 4 MG/ML SYRINGE ONE; -NITROGLYCERIN SL TABS 0.4 MG TAB SUBLINGUAL PRN; -SODIUM CHLORIDE 0.9% 1,000 ML in EMPTY BAG 1 BAG IV ONE; +fentaNYL (PF) 50 MCG/ML 2 ML AMP ONE
[2020-05-22 13:33] LABS: Anisocytosis Slight; HCT 34.2 % (39.0-53.0); HGB 10.1 gm/dL (13.0-17.5); Hypochromasia Marked; MCHC 29.5 g/dL (31.0-37.0); Macrocytosis Marked; Mean Platelet Volume 7.4; Platelet Count 385 k/uL (150-450); RBC 3.15 m/uL (4.30-5.90); RDW 17.3 % (11.5-15.5); WBC 6.8 k/uL (3.8-10.6)
[2020-05-22 13:42] LABS: MCV 108.5 fL (80.0-100.0)
[2020-05-22 13:44] LABS: African American GFR (CKD) >90 (>60 ml/min/1.73 sqM); Anion Gap 8 mmol/L; Blood Urea Nitrogen 22 mg/dL (9-20); Carbon Dioxide 15 mmol/L (22-30); Chloride 115 mmol/L (98-107); Non-African American GFR(CKD) 86 (>60 ml/min/1.73 sqM); Potassium 4.3 mmol/L (3.5-5.1); Sodium 138 mmol/L (137-145)
== END | disposition home or self-care (01) ==
LOC: LABPAT 12:34
PROVIDERS: ATTEND Internal Medicine Interventional Cardiology
DX: Z01.818 Encounter for other preprocedural examination (principal); I70.213 Atherosclerosis of native arteries of extremities with intermittent claudication, bilateral legs
CPT/HCPCS: 36415; 80051; 82565; 84520; 85027

== ENCOUNTER 2020-05-23 06:02 | Emergency (ER) | payer MEDICARE ==
[2020-05-23 06:11] VITALS: RESP 18
[2020-05-23] MEDS ORDERED: MORPHINE SULFATE 4 MG/ML SYRINGE IM STA (06:26)
--- NOTE | 2020-05-23 06:39 | ED ---
Skin/Abscess/FB HPI - General Chief complaint: Skin/Abscess/Foreign Body Stated complaint: Abscess Time Seen by Provider: 05/23/20 06:16 Source: patient Mode of arrival: ambulatory Limitations: no limitations - History of Present Illness Initial comments: Patient is a 64-year-old male, with history of vascular disease, presenting to the emergency Department with complaints of pain in his left ankle. Patient's is here with him and is providing some of the history. Patient was receiving treatment at the wound clinic for a chronic wound on his medial left ankle however there has no been any improvement. Patient is scheduled for a stent placement by Dr. Dee today to open vessels in his left leg to see if this improves healing. The next step if this does not improve his healing was to discuss amputation. Patient denies having any recent fever, chills. He is not currently on any antibiotics. He states he came into the ER today because the pain was increasing last night and he had trouble sleeping. He states he has had pain in this ankle before but this is worse than normal. He denies any radiation of the pain, he describes the pain is rated over his chronic wound. He denies being on any pain medication at this time. He denies any chest patient was breath, nausea, vomiting. He has no further complaints at this time. Upon arrival to the ER, his vital signs are stable. - Related Data Home Medications Medication Instructions Recorded Confirmed Gabapentin [Neurontin] 300 mg PO TID 05/17/19 05/21/20 Ipratropium-Albuterol Nebulize 3 ml INHALATION RT-QID 06/18/19 05/21/20 [Duoneb 0.5 mg-3 mg/3 ml Soln] Albuterol Sulfate [Proair Hfa] 2 puff INHALATION RT-Q4H PRN 07/30/19 05/21/20 Ferrous Sulfate [Iron] 325 mg PO DAILY 09/12/19 05/21/20 Furosemide [Lasix] 20 mg PO DAILY 09/12/19 05/21/20 Ticagrelor [Brilinta] 90 mg PO BID 09/12/19 05/21/20 hydrOXYzine HCL 25 mg PO HS 09/12/19 05/21/20 Donepezil [Aricept] 5 mg PO DAILY 11/03/19 05/21/20 allopurinoL [Zyloprim] 300 mg PO DAILY 11/03/19 05/21/20 lisinopriL [Zestril] 10 mg PO HS 11/03/19 05/21/20 traMADol HCL [traMADol HCL ER] 50 mg PO Q8H 11/03/19 05/21/20 Aspirin [Adult Low Dose Aspirin EC] 81 mg PO DAILY 05/21/20 05/21/20 Cetirizine HCl [Zyrtec] 10 mg PO DAILY 05/21/20 05/21/20 Citalopram Hydrobromide [CeleXA] 20 mg PO DAILY 05/21/20 05/21/20 Clopidogrel [Plavix] 75 mg PO DAILY 05/21/20 05/21/20 Guselkumab [Tremfya] 1 dose SQ Q30D 05/21/20 05/21/20 Nicotine 14Mg/24Hr Patch [Habitrol] 1 patch TRANSDERM DAILY PRN 05/21/20 05/21/20 Previous Rx's Medication Instructions Recorded Budesonide-Formot 160-4.5 Mcg 2 puff INHALATION RT-BID #1 inh 11/08/19 [Symbicort 160-4.5 Mcg Inhaler] Hydrocodone/Acetaminophen [Sweetwater 1 tab PO Q6HR PRN #10 tab 05/23/20 5-325] Allergies Allergy/AdvReac Type Severity Reaction Status Date / Time hydromorphone [From Dilaudid] AdvReac Confusion Verified 05/23/20 06:10 Review of Systems ROS Statement: Those systems with pertinent positive or pertinent negative responses have been documented in the HPI. ROS Other: All systems not noted in ROS Statement are negative. Past Medical History Past Medical History: Coronary Artery Disease (CAD), COPD, Deep Vein Thrombosis (DVT), GERD/Reflux, Hyperlipidemia, Hypertension, Osteoarthritis (OA), Rheumatoid Arthritis (RA), Skin Disorder, Vascular Disorder Additional Past Medical History / Comment(s): Multiple dislocations of left total hip, psoriasis, gout, hx of DVT both legs. Back and Hip pain. Current open left ankle wound with recent wound culture positive for pseudomonas., 02/2l per nc History of Any Multi-Drug Resistant Organisms: MRSA Date of last positivie culture/infection: 06/09/17 MDRO Source:: Left Ankle Past Surgical History: Back Surgery, Heart Catheterization With Stent, Hernia R epair, Joint Replacement, Orthopedic Surgery Additional Past Surgical History / Comment(s): 09/28/17 arthrectomy, balloon angioplasty with stent left SFA, Cardiac catheterization with 4 stents placed - 2012, stents placed in bilateral legs & thinks stents in abd aorta, Back surgery - fusion and anuel in back. Left Hip replacement, cataract eye sx. Left ankle has screws. LAPARASCOPIC SHANTANU FUNDOPLASTY. 10/06/2018 LSFA STENT AND ARTHRECTOMY. Past Anesthesia/Blood Transfusion Reactions: Previous Problems w/ Anesthesia Additional Past Anesthesia/Blood Transfusion Reaction / Comment(s): "HAS CONFUSION AND DISORIENTATION POST ANESTHESIA " on occasion. Date of Last Stent Placement:: 2012 Past Psychological History: No Psychological Hx Reported Smoking Status: Current every day smoker Past Alcohol Use History: None Reported Past Drug Use History: None Reported - Past Family History Mother Family Medical History: No Reported History Additional Family Medical History / Comment(s): Father History Unknown: Yes Family Medical History: Unable to Obtain General Exam - General Exam Comments Initial Comments: GENERAL: Patient is well-developed, patient is nontoxic and in mild distress secondary to pain. HEAD: Atraumatic, normocephalic. EYES: Pupils equal round and reactive to light, extraocular movements intact, sclera anicteric, conjunctiva are normal. Eyelids were unremarkable. ENT: TMs normal, nares patent, oropharynx clear without exudates. Moist mucous membranes. NECK: Normal range of motion, supple without lymphadenopathy or JVD. LUNGS: Unlabored respirations. Breath sounds clear to auscultation bilaterally and equal. No wheezes rales or rhonchi. HEART: Regular rate and rhythm without murmurs, rubs or gallops. ABDOMEN: Soft, nontender, normoactive bowel sounds. No guarding, no rebound. No masses appreciated. : Deferred MUSCULOSKELETAL: Normal extremities with adequate strength and normal range of motion, no pitting or edema. Bilateral pedal pulses are equal, slightly diminished. No clubbing or cyanosis. NEUROLOGICAL: Normal speech, normal gait. PSYCH: Normal mood, normal affect. SKIN: Warm, Dry, normal turgor. Patient has a chronic open wound on the medial left ankle that is approximately 3 cm in diameter. There is some very mild surrounding erythema. He also has some very small open wound starting on the anterior part of the left ankle as well. Limitations: no limitations Course Vital Signs 05/23/20 05/23/20 05/23/20 06:08 07:00 07:33 Temperature 98.3 F 98.4 F Pulse Rate 86 90 Respiratory 18 18 Rate Blood Pressure 96/57 108/66 103/56 O2 Sat by Pulse 96 96 Oximetry Medical Decision Making - Medical Decision Making Patient is a 64-year-old male with history of a chronic wound on his left medial ankle presenting with increasing pain over the last 24 hours. He is scheduled to have a procedure done with Dr. Dee to place a few stents in his left leg to hopefully improve vascular flow. Patient denies any fever or chills. His vitals are stable. Patient did have lab work done yesterday by Dr. Dee which shows a normal white count. Patient was given 4 mg IM of morphine which did improve his pain. I recommended getting blood work and x-ray of the left ankle however patient refused stating that he already had this done and that the stent placement "was his last hope before they discuss amputation." I will send patient with a short prescription of Sweetwater for breakthrough pain. Patient is in agreement with this plan of care. He is stable for discharge. Return para meters were discussed with the patient he verbalizes understanding. Disposition Clinical Impression: Left ankle pain, Chronic wound of extremity, Wound of left ankle Disposition: HOME SELF-CARE Condition: Stable Instructions (If sedation given, give patient instructions): Arthralgia (ED) Additional Instructions: Please return to the Emergency Department if symptoms worsen or any other concerns. Continue to elevate the foot. Follow-up with PCP. Prescriptions: Hydrocodone/Acetaminophen [Sweetwater 5-325] 1 tab PO Q6HR PRN #10 tab PRN Reason: Pain Is patient prescribed a controlled substance at d/c from ED?: Yes When asked, does pt state using other controlled substances?: Yes If prescribed controlled substance>3 days was MAPS reviewed?: Prescribed <3 Days If opioid is for acute pain is fill amount 7 days or less?: Yes If Rx opioid, was Start Talking consent form obtained?: Yes Referrals: David Woodson DO [Primary Care Provider] - 1-2 days
[2020-05-23] MEDS ORDERED: MORPHINE SULFATE 2 MG/ML SYRINGE IVP ONE (07:05)
[2020-05-23 07:35] VITALS: BP 103/56; PULSE 90; TEMP 98.4
== END 2020-05-23 07:35 | disposition home or self-care (01) ==
LOC: EC 06:02
DX: S91.002A Unspecified open wound, left ankle, initial encounter (principal); J44.9 Chronic obstructive pulmonary disease, unspecified; M06.9 Rheumatoid arthritis, unspecified; M10.9 Gout, unspecified; F17.200 Nicotine dependence, unspecified, uncomplicated; Z79.51 Long term (current) use of inhaled steroids; Z79.82 Long term (current) use of aspirin; Z79.899 Other long term (current) drug therapy; Z79.02 Long term (current) use of antithrombotics/antiplatelets; Z79.891 Long term (current) use of opiate analgesic; Z88.5 Allergy status to narcotic agent; Z86.19 Personal history of other infectious and parasitic diseases; Z86.718 Personal history of other venous thrombosis and embolism; Z95.5 Presence of coronary angioplasty implant and graft; Z86.14 Personal history of Methicillin resistant Staphylococcus aureus infection; X58.XXXA Exposure to other specified factors, initial encounter
CPT/HCPCS: 99283; 96374; 96372; J2270 ×2

== ENCOUNTER 2020-05-23 11:27 | Day surgery (SDC) | payer MEDICARE ==
[2020-05-21 10:41] VITALS: BMI 17.7
[~2020-05-23 11:27] MED LIST changes: +ALPRAZolam 0.25 MG TAB PO PRN; +ASPIRIN 325 MG TAB PO STA; -MORPHINE SULFATE 4 MG/ML SYRINGE ONE; +SODIUM CHLORIDE 0.9% 1,000 ML in EMPTY BAG 1 BAG IV ONE; -fentaNYL (PF) 50 MCG/ML 2 ML AMP ONE
[2020-05-23] MEDS ORDERED: SODIUM CHLORIDE 0.9% 1,000 ML IV ONE (12:13)
[2020-05-23] MEDS: MORPHINE SULFATE 2 MG/ML SYRINGE IVP PRN (12:35)
[2020-05-23] MEDS: fentaNYL (PF) 50 MCG/ML 2 ML AMP IV ONE ×2 (13:34→15:59)
[2020-05-23] MEDS: MIDAZOLAM 2 MG/2 ML VIAL IV ONE ×2 (14:52→15:10)
[2020-05-23] MEDS ORDERED: LIDOCAINE 1% INJ 10MG/ML (20 ML MDV) SQ ONE (15:09)
[2020-05-23] MEDS ORDERED: HEPARIN SODIUM 1,000 UN/ML (10ML VL) IV ONE (15:18)
[2020-05-23] MEDS ORDERED: fentaNYL (PF) 50 MCG/ML 2 ML AMP IV ONE (15:21)
[2020-05-23] MEDS ORDERED: NITROGLYCERIN 1000MCG/10ML SYRINGE INTRAARTER ONE (16:01)
[2020-05-23] MEDS ORDERED: niCARdipine Syringe (1,000 mcg/10 mL) INTRAARTER ONE (16:01)
[2020-05-23] MEDS ORDERED: IOPAMIDOL-250 100ML BTL INTRAARTER ONE (16:14)
[2020-05-23] MEDS ORDERED: NICOTINE 14MG/24HR PATCH TRANSDERM PRN (16:17)
[2020-05-23] MEDS ORDERED: ALBUTEROL NEBULIZED 2.5 MG/3 ML INHALATION PRN (16:17)
[2020-05-23] MEDS ORDERED: HYDROcodone/APAP 5-325MG 1 EACH TAB PO PRN (16:17)
[2020-05-23] MEDS ORDERED: SODIUM CHLORIDE 0.9% 1,000 ML in EMPTY BAG 1 BAG IV SCH (16:30)
--- NOTE | 2020-05-23 16:34 | LTR ---
DATE OF SERVICE: 05/23/2020 RE: RivkaCarmita Dear Dr. Woodson; Mr. Carmita Tineo underwent successful balloon angioplasty of the left SFA. I want to thank you for allowing us to participate in his care and please do not hesitate to call if you have any question or concern. Sincerely, MD BERENICE Sun / EDWARDN: [id number] /
--- NOTE | 2020-05-23 16:37 | AN ---
ANGIOGRAPHY REPORT DATE OF SERVICE: May 23, 2020 PERFORMING PHYSICIAN: Hector Howell MD. PROCEDURE PERFORMED: 1. Successful balloon angioplasty of the left common femoral artery and left SFA. 2. Intravascular ultrasound of the left common femoral artery and left SFA and left popliteal. 3. Left lower extremity angiogram. 4. Gradient measurement across the left common femoral artery. INDICATION: This is a 64-year-old gentleman with peripheral arterial disease and coronary artery disease who was diagnosed recently with critical limb ischemia of the left foot. He underwent an angiogram which revealed critical in-stent restenosis of the left SFA and he was brought today to undergo an intervention. APPROACH: Right common femoral artery. COMPLICATION: None. LEVEL OF SEDATION: Moderate with sedation length of 58 minutes. PROCEDURE DESCRIPTION: After obtaining an informed consent, the patient was brought to the cardiac labor union business representative. The right common femoral artery was cannulated using micropuncture technique, the micropuncture wire passed easily, then I placed a 6-Marshallese sheath at the right common femoral artery. After that, I did place a 70 cm 6-Marshallese Raabe sheath up and over to the left common femoral artery. Left lower extremity angiogram was performed and revealed 2 vessel runoff below the knee on the left with posterior tibial and peroneal with mild to moderate disease in the left popliteal and mild in-stent restenosis in the mid and distal portion with critical in-stent restenosis of the ostial left SFA as well as intermediate disease involving the left common femoral artery. A gradient measurement across the left common femoral artery was performed and that came into be not significant. I placed a 0.4 wire across the left SFA. I did balloon angioplasty using the chocolate balloon. The following angiogram showed excellent angiographic results and the procedure at that point was completed without any complication. Please note that before the procedure, I did intravascular ultrasound IVUS of the left popliteal and left SFA and left common femoral artery and that revealed the diameter of the vessel of 6 mm of the left SFA. I did exchange my long sheath into short sheath over 0.035 wire and selective right common femoral artery angiogram by the end. The final angiogram showed good results and the procedure was completed without any complication. POSTPROCEDURE MANAGEMENT: 1. Dual anti-platelet therapy. 2. Risk factors modifications. 3. Follow up with the patient. MMODL / IJN: [id number] /
--- NOTE | 2020-05-23 18:29 | IR ---
EXAMINATION TYPE: IR cryptanalyst femoral popliteal DATE OF EXAM: 05/23/2020 CLINICAL HISTORY: Peripheral vascular disease. TECHNIQUE: Fluoroscopy. COMPARISON: None. FINDINGS: Fluoroscopic guidance was provided during lower extremity angiogram and angioplasty proced ure performed by Dr. Howell. A total of 9.5 minutes of fluoroscopic time was utilized during the proce dure and multiple cine runs and spot images are acquired. Please refer to procedure note for further details as I was not present nor performed procedure. IMPRESSION: As Above.
[2020-05-23] MEDS: IPRATROPIUM-ALBUTEROL 3 ML NEB INHALATION SCH (20:17)
[2020-05-23] MEDS: SYMBICORT 160-4.5 MCG INHALER INHALATION SCH (20:17)
[2020-05-23] MEDS: traMADol 50 MG TAB PO SCH ×2 (20:42→23:21)
[2020-05-23] MEDS: GABAPENTIN 300 MG CAP PO SCH (20:45)
[2020-05-23] MEDS: TICAGRELOR 90 MG TAB PO SCH (20:45)
[2020-05-23] MEDS ORDERED: hydrOXYzine HCL 25 MG TAB PO SCH (21:00)
[2020-05-23] MEDS ORDERED: lisinopriL 10 MG TAB PO SCH (21:00)
[2020-05-23 22:22] VITALS: RESP 18
[2020-05-24] MEDS: MORPHINE SULFATE 2 MG/ML SYRINGE IVP PRN (01:38)
[2020-05-24 04:36] VITALS: BP 105/54; TEMP 97.9
[2020-05-24 06:20] LABS: Glucose,Whole Blood 98 mg/dL (75-99)
[2020-05-24 06:41] LABS: Anisocytosis Slight; Basophils # (A) 0.1 k/uL (0-0.2); Basophils % (A) 1 %; Eosinophils # (A) 0.2 k/uL (0-0.7); Eosinophils % (A) 4 %; HCT 28.3 % (39.0-53.0); Hypochromasia Marked; Lymphocytes # (A) 0.8 k/uL (1.0-4.8); Lymphocytes % (A) 14 %; MCH 32.8 pg (25.0-35.0); MCHC 30.5 g/dL (31.0-37.0); MCV 107.4 fL (80.0-100.0); Monocytes # (A) 0.3 k/uL (0-1.0); Monocytes % (A) 6 %; Neutrophils # (A) 4.2 k/uL (1.3-7.7); Neutrophils % (A) 73 %; Platelet Count 299 k/uL (150-450); RBC 2.64 m/uL (4.30-5.90); RDW 17.7 % (11.5-15.5); WBC 5.7 k/uL (3.8-10.6)
[2020-05-24 06:45] LABS: Macrocytosis Marked
[2020-05-24 06:47] LABS: HGB 8.6 gm/dL (13.0-17.5)
[2020-05-24 06:54] LABS: African American GFR (CKD) >90 (>60 ml/min/1.73 sqM); Anion Gap 8 mmol/L; Blood Urea Nitrogen 22 mg/dL (9-20); Calcium 8.5 mg/dL (8.4-10.2); Carbon Dioxide 14 mmol/L (22-30); Chloride 116 mmol/L (98-107); Glucose 88 mg/dL (74-99); Non-African American GFR(CKD) >90 (>60 ml/min/1.73 sqM); Potassium 3.5 mmol/L (3.5-5.1); Sodium 138 mmol/L (137-145)
[2020-05-24] MEDS ORDERED: CITALOPRAM HYDROBROMIDE 20 MG TAB PO SCH (09:00)
[2020-05-24] MEDS ORDERED: FUROSEMIDE 20 MG TAB PO SCH (09:00)
[2020-05-24] MEDS ORDERED: DONEPEZIL 5 MG TAB PO SCH (09:00)
[2020-05-24] MEDS ORDERED: allopurinoL 300 MG TAB PO SCH (09:00)
[2020-05-24] MEDS ORDERED: LORATADINE 10 MG TAB PO SCH (09:00)
[2020-05-24] MEDS ORDERED: ASPIRIN 81 MG PO SCH (09:00)
[2020-05-24] MEDS ORDERED: FERROUS SULFATE 325 MG TAB PO SCH (09:00)
[2020-05-24] MEDS: IPRATROPIUM-ALBUTEROL 3 ML NEB INHALATION SCH ×2 (09:06→11:50)
[2020-05-24] MEDS: SYMBICORT 160-4.5 MCG INHALER INHALATION SCH (09:06)
[2020-05-24] MEDS: TICAGRELOR 90 MG TAB PO SCH (10:13)
[2020-05-24] MEDS: traMADol 50 MG TAB PO SCH (10:13)
[2020-05-24] MEDS: GABAPENTIN 300 MG CAP PO SCH (10:16)
[2020-05-24 12:03] VITALS: PULSE 64
--- NOTE | 2020-05-24 12:55 | DS ---
DISCHARGE SUMMARY ADMISSION DATE: 05/23/2020 DISCHARGE DATE: 05/24/2020 BRIEF HISTORY: This is a pleasant 64-year-old gentleman who underwent yesterday successful DIRECTOR OF [employer]SULTING SERVICES of the left SFA and left common femoral artery with good angiographic results and without any complication. The procedure was performed from the right groin which is soft and nontender. The patient is going to be discharged home on dual anti-platelet therapy along with oral anticoagulation with Xarelto at PAD dose which is 2.5 mg p.o. b.i.d. He is intolerant to statin. I will follow up with the patient next week in the office. MMODL / IJN: [id number] /
[2020-06-16] MEDS ORDERED: GUSELKUMAB SQ SCH (09:00)
== END 2020-05-24 14:31 | disposition home or self-care (01) ==
LOC: CATHCVL 11:27 → 3SCARD 17:14 → CATHCVL 05-24 14:31
PROVIDERS: ATTEND Internal Medicine Interventional Cardiology
DX: T82.856A Stenosis of peripheral vascular stent, initial encounter (principal); I70.243 Atherosclerosis of native arteries of left leg with ulceration of ankle; L97.329 Non-pressure chronic ulcer of left ankle with unspecified severity; I25.10 Atherosclerotic heart disease of native coronary artery without angina pectoris; I99.8 Other disorder of circulatory system; I10 Essential (primary) hypertension; E78.2 Mixed hyperlipidemia; F17.210 Nicotine dependence, cigarettes, uncomplicated; I42.9 Cardiomyopathy, unspecified; M06.9 Rheumatoid arthritis, unspecified; Z79.82 Long term (current) use of aspirin; Z79.891 Long term (current) use of opiate analgesic; Z79.02 Long term (current) use of antithrombotics/antiplatelets; Z79.899 Other long term (current) drug therapy; Y84.9 Medical procedure, unspecified as the cause of abnormal reaction of the patient, or of later complication, without mention of misadventure at the time of the procedure
CPT/HCPCS: 94640 ×4; 37224; 85347; 37252; 80048; 85025; C1894 ×2; C1769 ×5; C1753; C1725; J2250; J2001; J3010; J2270 ×2; J1644; Q9966

== ENCOUNTER → 2020-07-31 | Outpatient (CLI) | payer MEDICARE ==
[2020-07-31 20:49] LABS: African American GFR (CKD) 102.8 (60.0-200.0); Albumin 3.9 g/dL (3.80-4.90); Albumin/Globulin Ratio 1.22 (1.60-3.17); BUN/Creat Ratio 31.11 Ratio (12.00-20.00); Calcium 9.1 mg/dL (8.7-10.3); Globulin 3.2 g/dL (1.6-3.3); Magnesium 1.9 mg/dL (1.5-2.4); Non-African American GFR(CKD) 88.7 (60.0-200.0); Potassium 4.5 mmol/L (3.5-5.5); Total Bilirubin 0.1 mg/dL (0.2-1.2); Total Protein 7.1 g/dL (6.2-8.2)
== END | disposition home or self-care (01) ==
LOC: LABWHC1 13:03
PROVIDERS: ATTEND Nurse Practitioner Adult Health
DX: I10 Essential (primary) hypertension (principal)
CPT/HCPCS: 36415; 80053; 83735

== ENCOUNTER → 2020-12-27 | Outpatient (CLI) | payer MEDICARE ==
[2020-12-27 23:32] LABS: Basophils # (A) 0.11 X 10*3/uL (0.00-0.10); Basophils % (A) 1.8 %; Eosinophils # (A) 0.58 X 10*3/uL (0.04-0.35); Eosinophils % (A) 9.5 %; HCT 33.1 % (39.6-50.0); HGB 10.1 g/dL (13.0-17.0); Lymphocytes # (A) 0.97 X 10*3/uL (0.90-5.00); Lymphocytes % (A) 15.9 %; MCHC 30.5 g/dL (32.0-37.0); MCV 108.2 fL (80.0-97.0); Mean Platelet Volume 10.2 fL (9.5-12.2); Monocytes # (A) 0.42 X 10*3/uL (0.20-1.00); Monocytes % (A) 6.9 %; Neutrophils % (A) 65.6 %; Platelet Count 371 X 10*3/uL (140-440); RBC 3.06 X 10*6/uL (4.40-5.60)
[2020-12-28 02:46] LABS: African American GFR (CKD) 72.1 (60.0-200.0); Non-African American GFR(CKD) 62.2 (60.0-200.0)
== END | disposition home or self-care (01) ==
LOC: LABWHC1 12:53
PROVIDERS: ATTEND Dermatology
DX: L40.0 Psoriasis vulgaris (principal); L29.8 Other pruritus
CPT/HCPCS: 36415; 82565; 84450; 84460; 85025; 86480

== ENCOUNTER 2021-04-02 | Inpatient (IN) | payer MEDICARE | END 2021-04-08 14:26 | disposition home or self-care (01) | DRG 388 | PROVIDERS: ADMIT Family Medicine | PROC: 30233N1 Transfusion of Nonautologous Red Blood Cells into Peripheral Vein, Percutaneous Approach (ICD-10-PCS; principal; 2021-04-07) | CPT/HCPCS: 36415; 71046; 74177; 76700; 80048; 80053; 81003; 82150; 82248; 82272; 83605; 83690; 83735; 84484; 85025; 85027; 85610; 85652; 85730; 86140; 86850; 86900; 86901; 86920; 87070; 87205; 87635; 93005; 94640; 94760; 96361; 96374; 96375; 96376; 99285 ==

== ENCOUNTER 2021-06-21 10:27 | Day surgery (SDC) | payer MEDICARE ==
[2021-06-21 11:02] VITALS: RESP 16; TEMP 973
[2021-06-21] MEDS ORDERED: LACTATED RINGERS 1,000 ML IV ONE (11:15)
[2021-06-21] MEDS ORDERED: LIDOCAINE 1% INJ 10MG/ML (20 ML MDV) ONE (12:13)
[2021-06-21] MEDS ORDERED: PROPOFOL 10 MG/ML 20 ML VIAL IV ONE (12:13)
--- NOTE | 2021-06-21 12:37 | P.PCN ---
Date of Procedure: 06/21/21 Procedure(s) Performed: Brief history: Patient is a pleasant 65-year-old white male scheduled for an elective upper endoscopy as well as colonoscopy as a part of evaluation of anemia/intermittent rectal bleeding. He has history of A. fib and has been on a Eliquis is on hold for the last 2 days. Procedure performed: Esophagogastroduodenoscopy With biopsy Colonoscopy Preoperative diagnosis: Anemia/rectal bleeding [place] [facility] [place]: After informed consent was obtained from the patient was brought into the endoscopy unit and IV sedation was administered by anesthesia under continuous monitoring. Initially upper endoscopy was done. The Olympus GF 160 video endoscope was inserted inserted into the mouth and esophagus intubated without any difficulty and was gradually advanced into the stomach and duodenum and carefully examined. The bulb and second part of the duodenum appeared normal. His were done from the duodenum to rule out celiac disease. The scope was then withdrawn into the stomach adequately insufflated with air and upon careful examination the antrum and mild diffuse gastritis and biopsies were done from this area. The body, cardia and fundus appeared normal. The scope was then withdrawn into the esophagus. The GE junction was located at 40 cm to the incisors. small sliding type hiatal hernia noted. It appeared regular with no erythema erosions or ulcerations. Rest of the esophagus appeared normal. Patient tolerated the procedure well. At this time the patient continued to remain sedation. Initial digital rectal examination was normal. Olympus CF 160 video colonoscope was then inserted into the rectum and gradually advanced to the cecum without any difficulty. Careful examination was performed as the scope was gradually being withdrawn. The prep was excellent. The cecum, ascending colon, transverse colon, descending colon, sigmoid colon and rectum appeared normal. Scattered sigmoid diverticula seen. Retroflexion was performed in the rectum and small internal hemorrhoids were noted. Patient tolerated the procedure well. Impression: 1. Upper endoscopy revealed mild diffuse gastritis and small hiatal hernia 2. Colonoscopy revealedScattered sigmoid diverticulosis and small internal hemorrhoids Recommendations: Findings of this examination were discussed with the patient as well as his family. He was advised to follow with the biopsy results. Resume medications today. Monitor CBC daily. If he has persistent anemia he may be a candidate for a small bowel capsule endoscopy.
[2021-06-21] MEDS ORDERED: fentaNYL (PF) 50 MCG/ML 2 ML AMP ONE (12:54)
[2021-06-21] MEDS ORDERED: fentaNYL (PF) 50 MCG/ML 2 ML AMP IVP ONE (12:54)
[2021-06-21 13:22] VITALS: BP 140/65; PULSE 54
== END 2021-06-21 13:32 | disposition home or self-care (01) ==
LOC: ORWHC2ENDO 10:27
PROVIDERS: ATTEND Internal Medicine Gastroenterology
DX: K62.5 Hemorrhage of anus and rectum (principal); K29.70 Gastritis, unspecified, without bleeding; K44.9 Diaphragmatic hernia without obstruction or gangrene; K57.30 Diverticulosis of large intestine without perforation or abscess without bleeding; I48.91 Unspecified atrial fibrillation; K64.8 Other hemorrhoids; I25.10 Atherosclerotic heart disease of native coronary artery without angina pectoris; I10 Essential (primary) hypertension; E78.5 Hyperlipidemia, unspecified; J44.9 Chronic obstructive pulmonary disease, unspecified; Z79.01 Long term (current) use of anticoagulants; Z87.891 Personal history of nicotine dependence; Z99.89 Dependence on other enabling machines and devices; Z79.84 Long term (current) use of oral hypoglycemic drugs; Z79.899 Other long term (current) drug therapy
CPT/HCPCS: 45378; 43239; J2001; J3010; J2704

== ENCOUNTER 2022-05-19 16:24 | Inpatient (IN) | payer MEDICARE ==
[2022-05-19] MEDS ORDERED: ALBUTEROL NEBULIZED 2.5 MG/3 ML INHALATION STA (17:05)
[2022-05-19] MEDS ORDERED: IPRATROPIUM 0.5 MG/2.5 ML NEBU INHALATION STA (17:05)
[2022-05-19] MEDS ORDERED: MAGNESIUM SULFATE-D5W PMX 1 GM in DEXTROSE/WATER 1 100ML.BAG IVPB ONE (18:15)
[2022-05-19] MEDS ORDERED: methylPREDNISolone SOD SUCCI 125 MG/2 ML VIAL IV STA (18:15)
--- NOTE | 2022-05-19 18:23 | ED ---
General Adult HPI - General Chief complaint: Shortness of Breath Stated complaint: jerry Source: patient, RN notes reviewed, old records reviewed Mode of arrival: ambulatory Limitations: no limitations - History of Present Illness Initial comments: 66-year-old male with oxygen dependent COPD presenting for increased dyspnea over the past several weeks. He states specifically this has worsened over the past 3 days. No reported fever. No chest pain. No lower extremity pain or swelling. History is taken from both the patient and his . There's been no known sick contacts. - Related Data Home Medications Medication Instructions Recorded Confirmed Gabapentin [Neurontin] 300 mg PO TID 05/17/19 06/21/21 Ipratropium-Albuterol Nebulize 3 ml INHALATION RT-QID 06/18/19 06/21/21 [Duoneb 0.5 mg-3 mg/3 ml Soln] Albuterol Sulfate [Proair Hfa] 2 puff INHALATION RT-Q4H PRN 07/30/19 06/21/21 Ferrous Sulfate [Iron] 325 mg PO DAILY 09/12/19 06/21/21 Donepezil [Aricept] 5 mg PO DAILY 11/03/19 06/21/21 allopurinoL [Zyloprim] 300 mg PO DAILY 11/03/19 06/21/21 Aspirin [Adult Low Dose Aspirin EC] 81 mg PO DAILY 05/21/20 06/21/21 Citalopram Hydrobromide [CeleXA] 20 mg PO DAILY 05/21/20 06/21/21 Guselkumab [Tremfya] 1 dose SQ Q60D 05/21/20 06/21/21 Apixaban [Eliquis] 2.5 mg PO BID 04/02/21 06/21/21 Atorvastatin Calcium [Lipitor] 80 mg PO HS 04/02/21 06/21/21 Famotidine [Pepcid] 20 mg PO DAILY 04/02/21 06/21/21 Metoprolol Succinate [Toprol XL] 25 mg PO DAILY 04/02/21 06/21/21 traMADol HCL [Ultram] 50 mg PO DAILY 04/02/21 06/21/21 Allergies Allergy/AdvReac Type Severity Reaction Status Date / Time No Known Allergies Allergy Verified 05/19/22 16:35 Review of Systems ROS Statement: Those systems with pertinent positive or pertinent negative responses have been documented in the HPI. ROS Other: All systems not noted in ROS Statement are negative. Past Medical History Past Medical History: Blood Disorder, Coronary Artery Disease (CAD), COPD, Deep Vein Thrombosis (DVT), GERD/Reflux, Hyperlipidemia, Hypertension, Osteoarthritis (OA), Respiratory Disorder, Rheumatoid Arthritis (RA), Skin Disorder, Vascular Disorder Additional Past Medical History / Comment(s): Cardiomyopathy, home oxygen at 2L/NC ATC, multiple dislocations of left total hip, psoriasis, gout, hx of DVT both legs, chronic pain/lowervback and bilateral hip pain, current chronic small open left ankle wound/positive for pseudomonas, past pancytopenis/febrile neutropenia/fever thought possibly d/t Humira, PAD, gout, chronic anemia, occasional dysphagia. History of Any Multi-Drug Resistant Organisms: MRSA Date of last positivie culture/infection: 06/09/17 MDRO Source:: Left Ankle Past Surgical History: Back Surgery, Heart Catheterization, Heart Catheterization With Stent, Hernia Repair, Joint Replacement, Orthopedic Surgery Additional Past Surgical History / Comment(s): Aortagrams with run-offs, bilateral leg atherectomies/stenting/PTBA, PCI with stents, lower back fusion/anuel, L ankle screw, L total hip arthroplasty/then removal and plate inserted, Rebekah fundaplication, EGD. Past Anesthesia/Blood Transfusion Reactions: Previous Problems w/ Anesthesia Additional Past Anesthesia/Blood Transfusion Reaction / Comment(s): "HAS CONFUSION AND DISORIENTATION POST ANESTHESIA " on occasion. Date of Last Stent Placement:: 2018 [facility] Past Psychological History: No Psychological Hx Reported Smoking Status: Current every day smoker, Light tobacco smoker Past Alcohol Use History: None Reported Past Drug Use History: None Reported - Past Family History Mother Family Medical History: No Reported History Additional Family Medical History / Comment(s): Father History Unknown: Yes Family Medical History: Unable to Obtain General Exam General appearance: alert, in distress Head exam: Present: atraumatic, normocephalic Eye exam: Present: normal appearance, PERRL ENT exam: Present: normal exam Neck exam: Present: normal inspection. Absent: tenderness Respiratory exam: Present: respiratory distress, wheezes, accessory muscle use, decreased breath sounds Cardiovascular Exam: Present: regular rate, normal rhythm GI/Abdominal exam: Present: soft. Absent: distended, tenderness, guarding Extremities exam: Present: pedal edema. Absent: calf tenderness Neurological exam: Present: alert, oriented X3, CN II-XII intact. Absent: motor sensory deficit Psychiatric exam: Present: normal affect, normal mood Skin exam: Present: warm, dry, intact. Absent: cyanosis, diaphoretic Course Vital Signs 05/19/22 05/19/22 05/19/22 16:30 18:30 18:44 Temperature 98.0 F Pulse Rate 70 64 Respiratory 26 H Rate Blood Pressure 114/67 O2 Sat by Pulse 99 Oximetry Fraction of 30 Inspired Oxygen (FIO2) 05/19/22 19:10 Temperature Pulse Rate 61 Respiratory Rate Blood Pressure O2 Sat by Pulse Oximetry Fraction of Inspired Oxygen (FIO2) EKG Findings - EKG Comments: EKG Findings:: EKG: Sinus rhythm, ST segment depression in the inferior leads, no ST segment elevation, nonspecific intraventricular conduction delay, rate of 65, UT interval 184, QRS duration 146, QTC 425 Medical Decision Making - Medical Decision Making 58-year-old male with worsening dyspnea over the past several days. Patient in moderate to severe respiratory distress. He is placed on BiPAP for respiratory support. He has significant improvement of her to breathing with BiPAP. He is given albuterol, Atrovent, steroids in the emergency department. Chest x-ray negative for focal pneumonia, no pneumothorax, normal white blood cell count, stable hemoglobin. He has a mild hypokalemia which is treated with albuterol and IV fluids. Troponin and BNP are negative. He will be admitted with pulmonology on consult. Primary care physician Dr. Woodson has been paged. - Lab Data Result diagrams: 05/19/22 18:24 05/19/22 18:24 Lab Results 05/19/22 05/19/22 05/19/22 Range/Units 18:24 18:24 18:24 WBC 10.1 (3.8-10.6) k/uL RBC 3.40 L (4.30-5.90) m/uL Hgb 11.0 L (13.0-17.5) gm/dL Hct 35.2 L (39.0-53.0) % MCV 103.8 H (80.0-100.0) fL MCH 32.5 (25.0-35.0) pg MCHC 31.3 (31.0-37.0) g/dL RDW 14.6 (11.5-15.5) % Plt Count 228 (150-450) k/uL MPV 7.3 Neutrophils % 63 % Lymphocytes % 10 % Monocytes % 6 % Eosinophils % 19 % Basophils % 1 % Neutrophils # 6.3 (1.3-7.7) k/uL Lymphocytes # 1.0 (1.0-4.8) k/uL Monocytes # 0.6 (0-1.0) k/uL Eosinophils # 1.9 H (0-0.7) k/uL Basophils # 0.1 (0-0.2) k/uL Hypochromasia Moderate Macrocytosis Slight PT 9.5 (9.0-12.0) sec INR 0.8 (<1.2) APTT 23.5 (22.0-30.0) sec Sodium 144 (137-145) mmol/L Potassium 5.9 H (3.5-5.1) mmol/L Chloride 111 H (98-107) mmol/L Carbon Dioxide 20 L (22-30) mmol/L Anion Gap 13 mmol/L BUN 37 H (9-20) mg/dL Creatinine 1.30 H (0.66-1.25) mg/dL Est GFR (CKD-EPI)AfAm 65 (>60 ml/min/1.73 sqM) Est GFR (CKD-EPI)NonAf 56 (>60 ml/min/1.73 sqM) Glucose 112 H (74-99) mg/dL Plasma Lactic Acid Juan (0.7-2.0) mmol/L Calcium 8.9 (8.4-10.2) mg/dL Magnesium 1.8 (1.6-2.3) mg/dL Total Bilirubin 0.2 (0.2-1.3) mg/dL AST 16 L (17-59) U/L ALT 11 (4-49) U/L Alkaline Phosphatase 154 H (38-126) U/L Troponin I (0.000-0.034) ng/mL NT-Pro-B Natriuret Pep pg/mL Total Protein 7.8 (6.3-8.2) g/dL Albumin 4.6 (3.5-5.0) g/dL 05/19/22 05/19/22 05/19/22 Range/Units 18:24 18:24 18:24 WBC (3.8-10.6) k/uL RBC (4.30-5.90) m/uL Hgb (13.0-17.5) gm/dL Hct (39.0-53.0) % MCV (80.0-100.0) fL MCH (25.0-35.0) pg MCHC (31.0-37.0) g/dL RDW (11.5-15.5) % Plt Count (150-450) k/uL MPV Neutrophils % % Lymphocytes % % Monocytes % % Eosinophils % % Basophils % % Neutrophils # (1.3-7.7) k/uL Lymphocytes # (1.0-4.8) k/uL Monocytes # (0-1.0) k/uL Eosinophils # (0-0.7) k/uL Basophils # (0-0.2) k/uL Hypochromasia Macrocytosis PT (9.0-12.0) sec INR (<1.2) APTT (22.0-30.0) sec Sodium (137-145) mmol/L Potassium (3.5-5.1) mmol/L Chloride (98-107) mmol/L Carbon Dioxide (22-30) mmol/L Anion Gap mmol/L BUN (9-20) mg/dL Creatinine (0.66-1.25) mg/dL Est GFR (CKD-EPI)AfAm (>60 ml/min/1.73 sqM) Est GFR (CKD-EPI)NonAf (>60 ml/min/1.73 sqM) Glucose (74-99) mg/dL Plasma Lactic Acid Juan 1.0 (0.7-2.0) mmol/L Calcium (8.4-10.2) mg/dL Magnesium (1.6-2.3) mg/dL Total Bilirubin (0.2-1.3) mg/dL AST (17-59) U/L ALT (4-49) U/L Alkaline Phosphatase (38-126) U/L Troponin I <0.012 (0.000-0.034) ng/mL NT-Pro-B Natriuret Pep 855 pg/mL Total Protein (6.3-8.2) g/dL Albumin (3.5-5.0) g/dL Critical Care Time Critical Care Time: Yes Total Critical Care Time: 35 Disposition Clinical Impression: COPD exacerbation Disposition: ADMITTED IP TO THIS [facility] Condition: Stable Is patient prescribed a controlled substance at d/c from ED?: No Referrals: David Woodson DO [Primary Care Provider] - 1-2 days Time of Disposition: 19:25
[2022-05-19 18:35] LABS: Basophils # (A) 0.1 k/uL (0-0.2); Basophils % (A) 1 %; Eosinophils # (A) 1.9 k/uL (0-0.7); Eosinophils % (A) 19 %; HCT 35.2 % (39.0-53.0); Hypochromasia Moderate; Lymphocytes % (A) 10 %; MCH 32.5 pg (25.0-35.0); MCHC 31.3 g/dL (31.0-37.0); MCV 103.8 fL (80.0-100.0); Macrocytosis Slight; Mean Platelet Volume 7.3; Monocytes # (A) 0.6 k/uL (0-1.0); Monocytes % (A) 6 %; Neutrophils # (A) 6.3 k/uL (1.3-7.7); Neutrophils % (A) 63 %; Platelet Count 228 k/uL (150-450); RDW 14.6 % (11.5-15.5); WBC 10.1 k/uL (3.8-10.6)
[2022-05-19 18:50] LABS: INR 0.8 (<1.2); Partial Thromboplastin Time 23.5 sec (22.0-30.0); Prothrombin Time 9.5 sec (9.0-12.0)
[2022-05-19 18:53] LABS: Albumin 4.6 g/dL (3.5-5.0); Calcium 8.9 mg/dL (8.4-10.2); Magnesium 1.8 mg/dL (1.6-2.3); Potassium 5.9 mmol/L (3.5-5.1); Total Bilirubin 0.2 mg/dL (0.2-1.3); Total Protein 7.8 g/dL (6.3-8.2)
--- NOTE | 2022-05-19 19:12 | XR ---
EXAMINATION TYPE: XR chest 1V portable DATE OF EXAM: 05/19/2022 6:39 PM COMPARISON: Chest radiographs from 04/04/2021, CT chest 11/07/2019 TECHNIQUE: XR chest 1V portable Frontal view of the chest. CLINICAL INDICATION:Male, 66 years old with history of jerry; FINDINGS: Lungs/Pleura: There is no evidence of pleural effusion, focal consolidation, or pneumothorax. Increa sed lucency throughout the upper lungs. Pulmonary vascularity: Unremarkable. Heart/mediastinum: Cardiomediastinal silhouette is unremarkable. Musculoskeletal: No acute osseous pathology. Remote appearing right-sided rib fractures. IMPRESSION: 1. No acute cardiopulmonary disease/process. 2. Moderate COPD changes as seen on prior CT chest.
[2022-05-19] MEDS ORDERED: NALOXONE 0.4 MG/ML 1 ML VIAL IVP PRN (19:23)
[2022-05-19] MEDS: SODIUM CHLORIDE 0.9% 1,000 ML IV SCH (23:00)
[2022-05-20] MEDS ORDERED: methylPREDNISolone SOD SUCCI 125 MG/2 ML VIAL IV SCH
[2022-05-20] MEDS: ACETAMINOPHEN TAB 325 MG TAB PO PRN ×3 (01:17→16:04)
[2022-05-20] MEDS: methylPREDNISolone SOD SUCCI 125 MG/2 ML VIAL IV SCH ×5 (01:19→23:10)
[2022-05-20] MEDS: IPRATROPIUM-ALBUTEROL 3 ML NEB INHALATION PRN (04:16)
[2022-05-20] MEDS: IPRATROPIUM-ALBUTEROL 3 ML NEB INHALATION SCH ×5 (08:17→20:17)
[2022-05-20] MEDS: SODIUM CHLORIDE 0.9% 1,000 ML IV SCH ×2 (10:02→23:13)
[2022-05-20] MEDS ORDERED: DEXTROSE 50% SYRINGE 50 ML IVP PRN ×2 (11:04)
[2022-05-20 11:15] LABS: HCT 30.6 % (39.0-53.0); HGB 9.9 gm/dL (13.0-17.5); Hypochromasia Moderate; MCH 33.7 pg (25.0-35.0); MCHC 32.2 g/dL (31.0-37.0); MCV 104.7 fL (80.0-100.0); Macrocytosis Moderate; Mean Platelet Volume 7.6; Platelet Count 184 k/uL (150-450); RBC 2.92 m/uL (4.30-5.90); RDW 14.6 % (11.5-15.5); WBC 4.8 k/uL (3.8-10.6)
[2022-05-20] MEDS ORDERED: FUROSEMIDE 20 MG TAB PO SCH (11:15)
[2022-05-20] MEDS ORDERED: lisinopriL 10 MG TAB PO SCH (11:15)
[2022-05-20] MEDS: GABAPENTIN 300 MG CAP PO SCH ×3 (11:20→21:06)
[2022-05-20] MEDS: METOPROLOL SUCCINATE (ER) 25 MG TAB.ER.24H PO SCH (11:20)
[2022-05-20] MEDS: FAMOTIDINE 20 MG TAB PO SCH (11:20)
[2022-05-20] MEDS: FERROUS SULFATE 325 MG TAB PO SCH (11:20)
[2022-05-20 11:35] LABS: Calcium 8.4 mg/dL (8.4-10.2)
[2022-05-20] MEDS ORDERED: DEXTROSE 50% SYRINGE 50 ML IVP STA (11:53)
[2022-05-20] MEDS ORDERED: SODIUM BICARB 8.4% 50 ML SYR (1 MEQ/ML) IV STA ×2 (11:53→12:04)
[2022-05-20] MEDS ORDERED: ALBUTEROL NEBULIZED 2.5 MG/3 ML INHALATION STA (11:54)
[2022-05-20] MEDS ORDERED: INSULIN REGULAR 100 UNIT/ML VIAL (IV) IV ONE (12:00)
[2022-05-20] MEDS ORDERED: CALCIUM GLUCONATE IN NACL 1 GM in SALINE 1 100ML.BAG IVPB ONE (12:00)
[2022-05-20] MEDS: AZITHROMYCIN 500 MG TAB PO SCH (12:20)
[2022-05-20] MEDS: INSULIN ASPART (NovoLOG) 100 UNIT/ML VIAL SQ SCH ×3 (12:32→20:19)
[2022-05-20] MEDS ORDERED: ONDANSETRON 4 MG/2 ML VIAL IVP PRN (13:52)
--- NOTE | 2022-05-20 15:08 | P.CNPUL ---
History of Present Illness Consult date: 05/20/22 Requesting physician: Zelalem Lizama Reason for consult: dyspnea, cough Chief complaint: Shortness of breath History of present illness: 66-year-old male patient with severe COPD, on home oxygen at 3 L, who sees Dr. Bermudez in the pulmonary office, former smoker, history of CAD, hypertension, hyperlipidemia, osteoarthritis, psoriasis, gout, DVT, peripheral vascular disease with intervention. Patient's baseline FEV1 is 1.12 L or 34% of predicted. He wears 3 L of oxygen on a regular basis. On 05/19/2022 patient came in to the emergency department for evaluation of increasing dyspnea over the past several weeks. This has especially worsened over the last 3 days. He denied any fever, no complaints of chest pain. No lower extremity pain or swelling. As of note patient is vaccinated against COVID-19. His chest x-ray showed no acute cardiopulmonary disease. Moderate COPD. Admission blood work showed normal white count of 10.1, hemoglobin of 11.0, weight in addition profile was within normal limits, potassium is 5.9, chloride was 111, CO2 is 20, BUN is 37 and creatinine is 1.3. Troponin was less than 0.0121, proBNP was 855. EKG showed sinus rhythm with ST segment depression in the inferior leads, no ST segment elevation with a nonspecific intraventricular conduction delay. Patient was in moderate to severe respiratory distress she was placed on BiPAP for respiratory support, he was given bronchodilators, IV steroids, and subsequently his breathing has improved, patient was then switched to 3 L nasal cannula. He is breathing more comfortably though he still short of breath with any exertion and with conversation. Review of Systems All systems: negative Constitutional: Denies chills, Denies fever Eyes: denies blurred vision, denies pain Ears, nose, mouth and throat: Denies headache, Denies sore throat Cardiovascular: Denies chest pain, Denies shortness of breath Respiratory: Reports dyspnea, Denies cough Gastrointestinal: Denies abdominal pain, Denies diarrhea, Denies nausea, Denies vomiting Musculoskeletal: Denies myalgias Integumentary: Denies pruritus, Denies rash Neurological: Denies numbness, Denies weakness Psychiatric: Denies anxiety, Denies depression Endocrine: Denies fatigue, Denies weight change Past Medical History Past Medical History: Blood Disorder, Coronary Artery Disease (CAD), Heart Failure, COPD, Deep Vein Thrombosis (DVT), GERD/Reflux, Hyperlipidemia, Hypertension, Osteoarthritis (OA), Respiratory Disorder, Rheumatoid Arthritis (RA), Skin Disorder, Vascular Disorder Additional Past Medical History / Comment(s): Cardiomyopathy, home oxygen at 4L/NC ATC lately, slightly elevated L diaphragm, multiple dislocations of left total hip, psoriasis, gout, hx of DVT both legs, chronic pain/lowervback and bilateral hip pain, current chronic small open left ankle wound now healed, past pancytopenia/febrile neutropenia/fever thought possibly d/t Humira, PAD, gout, chronic anemia, occasional dysphagia, severe protein calorie malnutrition, small bowel ileus, nephrolithiasis, chronic R hip avascular necresis, recent R shoulder pain, . History of Any Multi-Drug Resistant Organisms: MRSA Date of last positivie culture/infection: 06/09/17 MDRO Source:: Left Ankle Past Surgical History: Back Surgery, Heart Catheterization, Heart Catheterization With Stent, Hernia Repair, Joint Replacement, Orthopedic Surgery Additional Past Surgical History / Comment(s): Aortagrams with run-offs, bilateral leg atherectomies/stenting/PTBA, PCI with stents, lower back fusion/anuel, L ankle screw, L total hip arthroplasty/then removal and hardware inserted, Rebekah fundaplication, EGDs, colonoscopies. Past Anesthesia/Blood Transfusion Reactions: Previous Problems w/ Anesthesia Additional Past Anesthesia/Blood Transfusion Reaction / Comment(s): "HAS CONFUSION AND DISORIENTATION POST ANESTHESIA " on occasion. Date of Last Stent Placement:: 2018 [facility] Smoking Status: Former smoker - Past Family History Mother Family Medical History: No Reported History Additional Family Medical History / Comment(s): Father History Unknown: Yes Family Medical History: Unable to Obtain Medications and Allergies Home Medications Medication Instructions Recorded Confirmed Type Gabapentin [Neurontin] 300 mg PO TID 05/17/19 05/19/22 History Ipratropium-Albuterol Nebulize 3 ml INHALATION RT-QID 06/18/19 05/19/22 History [Duoneb 0.5 mg-3 mg/3 ml Soln] Albuterol Sulfate [Proair Hfa] 2 puff INHALATION RT-Q4H PRN 07/30/19 05/19/22 History Ferrous Sulfate [Iron] 325 mg PO DAILY 09/12/19 05/19/22 History Donepezil [Aricept] 5 mg PO HS 11/03/19 05/19/22 History allopurinoL [Zyloprim] 300 mg PO DAILY 11/03/19 05/19/22 History Aspirin [Adult Low Dose Aspirin EC] 81 mg PO DAILY 05/21/20 05/19/22 History Citalopram Hydrobromide [CeleXA] 20 mg PO DAILY 05/21/20 05/19/22 History Guselkumab [Tremfya] 100 mg SQ Q56D 05/21/20 05/20/22 History Atorvastatin Calcium [Lipitor] 80 mg PO HS 04/02/21 05/19/22 History Famotidine [Pepcid] 20 mg PO DAILY 04/02/21 05/19/22 History Metoprolol Succinate [Toprol XL] 25 mg PO DAILY 04/02/21 05/19/22 History Furosemide [Lasix] 20 mg PO DAILY 05/19/22 05/19/22 History Sildenafil Citrate 100 mg PO DAILY PRN 05/19/22 05/19/22 History hydrOXYzine HCL [Atarax] 25 mg PO HS 05/19/22 05/19/22 History lisinopriL [Zestril] 10 mg PO DAILY 05/19/22 05/19/22 History traMADol HCL [Ultram ER] 100 mg PO BID PRN 05/19/22 05/19/22 History Allergies Allergy/AdvReac Type Severity Reaction Status Date / Time No Known Allergies Allergy Verified 05/19/22 20:34 Physical Exam Vitals: Vital Signs Temp Pulse Pulse Resp BP BP Pulse Ox 05/20/22 12:02 86 24 05/20/22 12:00 87 27 H 165/83 98 05/20/22 11:50 106 H 28 H 05/20/22 09:45 64 20 05/20/22 08:28 66 20 05/20/22 08:17 66 23 96 05/20/22 08:00 64 22 153/77 98 05/20/22 04:44 71 21 91/51 97 05/20/22 04:37 82 05/20/22 04:16 91 05/20/22 04:02 77 38 H 131/86 96 05/20/22 01:10 97.9 F 64 20 126/71 99 05/20/22 00:01 05/19/22 22:22 69 18 131/85 94 L 05/19/22 19:10 61 05/19/22 18:44 64 05/19/22 18:30 05/19/22 16:30 98.0 F 70 26 H 114/67 99 FiO2 05/20/22 12:02 05/20/22 12:00 05/20/22 11:50 05/20/22 09:45 05/20/22 08:28 05/20/22 08:17 30 05/20/22 08:00 05/20/22 04:44 05/20/22 04:37 05/20/22 04:16 30 05/20/22 04:02 05/20/22 01:10 05/20/22 00:01 30 05/19/22 22:22 05/19/22 19:10 05/19/22 18:44 05/19/22 18:30 30 05/19/22 16:30 Intake and Output 05/19/22 05/20/22 05/20/22 22:59 06:59 14:59 Intake Total 900 Output Total 200 300 Balance -200 600 Intake: IV 700 Calcium Gluconate in NaCl 100 1 gm In Saline 1 100ml. bag @ 100 mls/hr IVPB ONCE ONE Rx#:[id number] Sodium Chloride 0.9% 1, 600 000 ml @ 75 mls/hr IV . [id number] [facility] Rx#:[id number] Oral 200 Output: Urine 200 300 Other: Weight 65.771 kg 65.771 kg GENERAL EXAM: Alert, very pleasant, 58-year-old white male, 3 L of oxygen, short of breath at rest and with conversation, in no apparent distress. HEAD: Normocephalic/atraumatic. EYES: Normal reaction of pupils, equal size. Conjunctiva pink, sclera white. NOSE: Clear with pink turbinates. THROAT: No erythema or exudates. NECK: No masses, no JVD, no thyroid enlargement, no adenopathy. CHEST: No chest wall deformity. Symmetrical expansion. LUNGS: Diminished air entry with diffuse wheezes CVS: Regular rate and rhythm, normal S1 and S2, no gallops, no murmurs, no rubs ABDOMEN: Soft, nontender. No hepatosplenomegaly, normal bowel sounds, no guarding or rigidity. EXTREMITIES: No clubbing, no edema, no cyanosis, 2+ pulses and upper and lower extremities. MUSCULOSKELETAL: Muscle strength and tone normal. SPINE: No scoliosis or deformity SKIN: No rashes CENTRAL NERVOUS SYSTEM: Alert and oriented -3. No focal deficits, tone is normal in all 4 extremities. PSYCHIATRIC: Alert and oriented -3. Appropriate affect. Intact judgment and insight. Results - Laboratory Findings CBC and BMP: 05/20/22 10:44 05/20/22 10:44 PT/INR, D-dimer PT 9.5 sec (9.0-12.0) 05/19/22 18:24 INR 0.8 (<1.2) 05/19/22 18:24 Abnormal lab findings: Abnormal Labs 05/19/22 05/19/22 05/20/22 18:24 18:24 10:44 RBC 3.40 L 2.92 L Hgb 11.0 L 9.9 L Hct 35.2 L 30.6 L MCV 103.8 H 104.7 H Eosinophils # 1.9 H Potassium 5.9 H Chloride 111 H Carbon Dioxide 20 L BUN 37 H Creatinine 1.30 H Glucose 112 H AST 16 L Alkaline Phosphatase 154 H 05/20/22 10:44 RBC Hgb Hct MCV Eosinophils # Potassium 6.0 H Chloride 114 H Carbon Dioxide 16 L BUN 38 H Creatinine Glucose 181 H AST Alkaline Phosphatase - Diagnostic Findings Chest x-ray: report reviewed, image reviewed Assessment and Plan Plan: Assessment: #1. Acute exacerbation of COPD, requiring BiPAP support. Chest x-ray showing no acute cardiopulmonary disease #2. History of advanced COPD with baseline FEV1 of 1.12 L or 34% of predicted on home oxygen at 3 L/m #3. Extensive history of smoking, currently in remission, patient carries 50 years of smoking, of 1 to 2 packs a day #4. History of rheumatoid arthritis #5. Psoriasis #6. Hypertension #7. Hyperlipidemia #8. CAD with previous stenting #9. Peripheral vascular disease with history of intervention, previous stenting of bilateral iliacs in 2012 #10. Previous history of MRSA infection #11. Chronic ulceration of the left foot Plan: Continue current medical treatment Continue IV steroids, nebulized bronchodilators We'll add azithromycin 500 mg daily Will send a sputum for culture Use BiPAP support as needed We'll continue to follow patient's clinical course I have personally seen and examined the patient and reviewed the documentation. I performed a joint evaluation with the nurse practitioner in this evaluation was done more than 30 minutes. I fully agree with the documentation above and the plan of care. Patient was seen in the emergency department. The patient was taken off the BiPAP and currently is on 4 L of O2 nasal cannula. He has advanced COPD. Resume admitted to the floor where he is going to have COPD further optimized with a combination of bronchodilators and steroids. Recommend outpatient treatment with [facility]. The patient has completed his COVID 19 vaccinations. The patient is a nonsmoker for now. Time with Patient: Greater than 30
[2022-05-20 16:45] LABS: Glucose,Whole Blood 186 mg/dL (70-110)
--- NOTE | 2022-05-20 19:16 | P.HPIM ---
History of Present Illness H&P Date: 05/20/22 Chief Complaint: Worsening dyspnea This is a 66-year-old gentleman with past medical history of CAD with stents, advanced COPD, DVT, gastroesophageal reflux disease, hyperlipidemia, hypertension, memory impairment, osteoarthritis, rheumatoid arthritis, extensive nicotine dependence and multiple other medical issues presented to the ER with worsening dyspnea over the last few days. Denies chest pain, palpitations. Chest x-ray reported no acute cardiopulmonary disease. Afebrile, normal WBC, hemoglobin 11, platelets 228, BUN 37, creatinine 1.3, potassium 5.9, magnesium 1.8. Troponin negative 1, alk phos 154. Review of Systems ROS Statement: Those systems with pertinent positive or pertinent negative responses have been documented in the HPI. ROS Other: All systems not noted in ROS Statement are negative. Past Medical History Past Medical History: Blood Disorder, Coronary Artery Disease (CAD), Heart Failure, COPD, Deep Vein Thrombosis (DVT), GERD/Reflux, Hyperlipidemia, Hypertension, Osteoarthritis (OA), Respiratory Disorder, Rheumatoid Arthritis (RA), Skin Disorder, Vascular Disorder Additional Past Medical History / Comment(s): Cardiomyopathy, home oxygen at 4L/NC ATC lately, slightly elevated L diaphragm, multiple dislocations of left total hip, psoriasis, gout, hx of DVT both legs, chronic pain/lowervback and cherelle ateral hip pain, current chronic small open left ankle wound now healed, past pancytopenia/febrile neutropenia/fever thought possibly d/t Humira, PAD, gout, chronic anemia, occasional dysphagia, severe protein calorie malnutrition, small bowel ileus, nephrolithiasis, chronic R hip avascular necresis, recent R shoulder pain, . History of Any Multi-Drug Resistant Organisms: MRSA Date of last positivie culture/infection: 06/09/17 MDRO Source:: Left Ankle Past Surgical History: Back Surgery, Heart Catheterization, Heart Catheterization With Stent, Hernia Repair, Joint Replacement, Orthopedic Surgery Additional Past Surgical History / Comment(s): Aortagrams with run-offs, bilateral leg atherectomies/stenting/PTBA, PCI with stents, lower back fusion/anuel, L ankle screw, L total hip arthroplasty/then removal and hardware inserted, Rebekah fundaplication, EGDs, colonoscopies. Past Anesthesia/Blood Transfusion Reactions: Previous Problems w/ Anesthesia Additional Past Anesthesia/Blood Transfusion Reaction / Comment(s): "HAS CONFUSION AND DISORIENTATION POST ANESTHESIA " on occasion. Date of Last Stent Placement:: 2018 [facility] Smoking Status: Former smoker - Past Family History Mother Family Medical History: No Reported History Additional Family Medical History / Comment(s): Father History Unknown: Yes Family Medical History: Unable to Obtain Medications and Allergies Home Medications Medication Instructions Recorded Confirmed Type Gabapentin [Neurontin] 300 mg PO TID 05/17/19 05/19/22 History Ipratropium-Albuterol Nebulize 3 ml INHALATION RT-QID 06/18/19 05/19/22 History [Duoneb 0.5 mg-3 mg/3 ml Soln] Albuterol Sulfate [Proair Hfa] 2 puff INHALATION RT-Q4H PRN 07/30/19 05/19/22 History Ferrous Sulfate [Iron] 325 mg PO DAILY 09/12/19 05/19/22 History Donepezil [Aricept] 5 mg PO HS 11/03/19 05/19/22 History allopurinoL [Zyloprim] 300 mg PO DAILY 11/03/19 05/19/22 History Aspirin [Adult Low Dose Aspirin EC] 81 mg PO DAILY 05/21/20 05/19/22 History Citalopram Hydrobromide [CeleXA] 20 mg PO DAILY 05/21/20 05/19/22 History Guselkumab [Tremfya] 100 mg SQ Q56D 05/21/20 05/20/22 History Atorvastatin Calcium [Lipitor] 80 mg PO HS 04/02/21 05/19/22 History Famotidine [Pepcid] 20 mg PO DAILY 04/02/21 05/19/22 History Metoprolol Succinate [Toprol XL] 25 mg PO DAILY 04/02/21 05/19/22 History Furosemide [Lasix] 20 mg PO DAILY 05/19/22 05/19/22 History Sildenafil Citrate 100 mg PO DAILY PRN 05/19/22 05/19/22 History hydrOXYzine HCL [Atarax] 25 mg PO HS 05/19/22 05/19/22 History lisinopriL [Zestril] 10 mg PO DAILY 05/19/22 05/19/22 History traMADol HCL [Ultram ER] 100 mg PO BID PRN 05/19/22 05/19/22 History Allergies Allergy/AdvReac Type Severity Reaction Status Date / Time No Known Allergies Allergy Verified 05/19/22 20:34 Physical Exam Vitals: Vital Signs Temp Pulse Pulse Resp BP BP Pulse Ox 05/20/22 16:31 81 05/20/22 16:21 79 05/20/22 16:00 97.4 F L 85 20 168/75 98 05/20/22 15:50 05/20/22 14:00 87 24 05/20/22 12:02 86 24 05/20/22 12:00 87 27 H 165/83 98 05/20/22 11:50 106 H 28 H 05/20/22 09:45 64 20 05/20/22 08:28 66 20 05/20/22 08:17 66 23 96 05/20/22 08:00 64 22 153/77 98 05/20/22 04:44 71 21 91/51 97 05/20/22 04:37 82 05/20/22 04:16 91 05/20/22 04:02 77 38 H 131/86 96 05/20/22 01:10 97.9 F 64 20 126/71 99 05/20/22 00:01 05/19/22 22:22 69 18 131/85 94 L 05/19/22 19:10 61 FiO2 05/20/22 16:31 05/20/22 16:21 05/20/22 16:00 05/20/22 15:50 30 05/20/22 14:00 05/20/22 12:02 05/20/22 12:00 05/20/22 11:50 05/20/22 09:45 05/20/22 08:28 05/20/22 08:17 30 05/20/22 08:00 05/20/22 04:44 05/20/22 04:37 05/20/22 04:16 30 05/20/22 04:02 05/20/22 01:10 05/20/22 00:01 30 05/19/22 22:22 05/19/22 19:10 Intake and Output 05/20/22 05/20/22 05/20/22 06:59 14:59 22:59 Intake Total 900 180 Output Total 200 300 Balance -200 600 180 Intake: IV 700 Calcium Gluconate in NaCl 100 1 gm In Saline 1 100ml. bag @ 100 mls/hr IVPB ONCE ONE Rx#:[id number] Sodium Chloride 0.9% 1, 600 000 ml @ 75 mls/hr IV . [id number] [facility] Rx#:[id number] Oral 200 180 Output: Urine 200 300 Other: Weight 65.771 kg GENERAL: Cachectic,alert and oriented x3, no acute distress. HEENT: Pupils are round and equally reacting to light. EOMI. No scleral icterus. No conjunctival pallor. Normocephalic, atraumatic. No pharyngeal erythema. No thyromegaly. CARDIOVASCULAR: S1 and S2 present. No murmurs, rubs, or gallops. -PULMONARY: Limited air entry, diminished with diffuse scattered expiratory wheezing throughout ABDOMEN: Soft, nondistended, nontender, positive bowel sounds .No palpable organomegaly. -EXTREMITIES: No cyanosis, clubbing, or pedal edema. NEUROLOGICAL: Gross neurological examination did not reveal any focal deficits. SKIN: No rashes. Warm and dry. Results CBC & Chem 7: 05/20/22 10:44 05/20/22 16:34 Labs: Abnormal Lab Results - Last 24 Hours (Table) 05/20/22 05/20/22 05/20/22 Range/Units 10:44 10:44 16:34 RBC 2.92 L (4.30-5.90) m/uL Hgb 9.9 L (13.0-17.5) gm/dL Hct 30.6 L (39.0-53.0) % MCV 104.7 H (80.0-100.0) fL Potassium 6.0 H 5.5 H (3.5-5.1) mmol/L Chloride 114 H (98-107) mmol/L Carbon Dioxide 16 L (22-30) mmol/L BUN 38 H (9-20) mg/dL Glucose 181 H (74-99) mg/dL POC Glucose (mg/dL) (70-110) mg/dL 05/20/22 Range/Units 16:44 RBC (4.30-5.90) m/uL Hgb (13.0-17.5) gm/dL Hct (39.0-53.0) % MCV (80.0-100.0) fL Potassium (3.5-5.1) mmol/L Chloride (98-107) mmol/L Carbon Dioxide (22-30) mmol/L BUN (9-20) mg/dL Glucose (74-99) mg/dL POC Glucose (mg/dL) 186 H (70-110) mg/dL Microbiology - Last 24 Hours (Table) 05/20/22 14:15 Sputum Culture - Preliminary Sputum Thrombosis Risk Factor Assmnt - Choose All That Apply Any of the Below Risk Factors Present?: Yes Each Factor Represents 1 point: Abnormal pulmonary function (COPD) Other Risk Factors: Yes Each Risk Factor Represents 2 Points: Age 61-74 years Each Risk Factor Represents 3 Points: History of DVT/PE Other congenital or acquired thrombophilia - If yes, enter type in comment: No Thrombosis Risk Factor Assessment Total Risk Factor Score: 6 Thrombosis Risk Factor Assessment Level: High Risk Assessment and Plan Assessment: Acute exacerbation of COPD, currently BiPAP dependent, in a patient with history of advanced COPD Chronic respiratory failure, wears 3 L nasal cannula O2 at home Protein calorie malnutrition, moderate BMI 21.4 Acute renal failure secondary to dehydration related to decreased oral intake, improving History of Moderate size hiatal hernia Chronic right femoral head avascular necrosis Hypertension Hyperlipidemia CAD, status post 4 stents History of the venous thrombosis Peripheral vascular disease, history of bilateral iliac stenting GERD Memory impairment Osteoarthritis Rheumatoid arthritis History of dislocation Psoriasis, history of History of MRSA Chronic hip and back pain status post back surgery and fusion History of extensive nicotine dependence Plan: Continue on current medication regime ,monitoring and symptomatic treatment. Repeat labs pending. Aggressive pulmonary toileting with nebulized bronchodilators, systemic steroids, prn Bipap. Pulmonary consult in place. Protonix ordered for GI prophylaxis. Hyperkalemic protocol administered. Close monitoring of renal function, electrolytes with repeat labs ordered for a.m. Sputum culture ordered. The impression and plan of care has been dictated as directed. : I performed a history and examination of this patient, discussed the same with the dictator. I agree with the dictator's note ,documented as a scribe. Any additional findings or plans will be noted.
[2022-05-20 20:08] LABS: Glucose,Whole Blood 155 mg/dL (70-110)
[2022-05-20] MEDS: ATORVASTATIN 80 MG TAB PO SCH (21:06)
[2022-05-20] MEDS: hydrOXYzine HCL 25 MG TAB PO SCH (21:41)
[2022-05-20] MEDS: DONEPEZIL 5 MG TAB PO SCH (21:42)
[2022-05-21] MEDS: IPRATROPIUM-ALBUTEROL 3 ML NEB INHALATION PRN (04:28)
[2022-05-21 06:02] LABS: Glucose,Whole Blood 174 mg/dL (70-110)
[2022-05-21] MEDS: methylPREDNISolone SOD SUCCI 125 MG/2 ML VIAL IV SCH ×4 (06:53→22:32)
[2022-05-21] MEDS: INSULIN ASPART (NovoLOG) 100 UNIT/ML VIAL SQ SCH ×4 (06:53→20:49)
[2022-05-21] MEDS: CITALOPRAM HYDROBROMIDE 20 MG TAB PO SCH (08:48)
[2022-05-21] MEDS: FERROUS SULFATE 325 MG TAB PO SCH (08:48)
[2022-05-21] MEDS: AZITHROMYCIN 500 MG TAB PO SCH (08:48)
[2022-05-21] MEDS: FAMOTIDINE 20 MG TAB PO SCH (08:48)
[2022-05-21] MEDS: METOPROLOL SUCCINATE (ER) 25 MG TAB.ER.24H PO SCH (08:48)
[2022-05-21] MEDS: GABAPENTIN 300 MG CAP PO SCH ×3 (08:48→20:48)
[2022-05-21] MEDS: IPRATROPIUM-ALBUTEROL 3 ML NEB INHALATION SCH ×4 (08:59→20:14)
[2022-05-21 10:22] LABS: HCT 31.2 % (39.0-53.0); HGB 9.7 gm/dL (13.0-17.5); Hypochromasia Moderate; MCH 32.4 pg (25.0-35.0); MCHC 31.1 g/dL (31.0-37.0); Macrocytosis Slight; Mean Platelet Volume 7.6; Platelet Count 235 k/uL (150-450); RDW 14.6 % (11.5-15.5); WBC 8.8 k/uL (3.8-10.6)
[2022-05-21 10:30] LABS: African American GFR (CKD) >90 (>60 ml/min/1.73 sqM); Anion Gap 17 mmol/L; Blood Urea Nitrogen 31 mg/dL (9-20); Calcium 8.8 mg/dL (8.4-10.2); Carbon Dioxide 19 mmol/L (22-30); Chloride 110 mmol/L (98-107); Glucose 139 mg/dL (74-99); Non-African American GFR(CKD) 88 (>60 ml/min/1.73 sqM); Potassium 4.9 mmol/L (3.5-5.1); Sodium 146 mmol/L (137-145)
[2022-05-21] MEDS: guaiFENesin SYRUP 100MG/5ML 200 MG/10 ML CUP PO PRN ×3 (10:32→22:33)
[2022-05-21 11:53] LABS: Glucose,Whole Blood 161 mg/dL (70-110)
--- NOTE | 2022-05-21 14:00 | P.PN ---
Subjective Progress Note Date: 05/21/22 Principal diagnosis: Shortness of breath 66-year-old male patient with severe COPD, on home oxygen at 3 L, who sees Dr. Bermudez in the pulmonary office, former smoker, history of CAD, hypertension, hyperlipidemia, osteoarthritis, psoriasis, gout, DVT, peripheral vascular disease with intervention. Patient's baseline FEV1 is 1.12 L or 34% of predicted. He wears 3 L of oxygen on a regular basis. On 05/19/2022 patient came in to the emergency department for evaluation of increasing dyspnea over the past several weeks. This has especially worsened over the last 3 days. He denied any fever, no complaints of chest pain. No lower extremity pain or swelling. As of note patient is vaccinated against COVID-19. His chest x-ray showed no acute cardiopulmonary disease. Moderate COPD. Admission blood work showed normal white count of 10.1, hemoglobin of 11.0, weight in addition profile was within normal limits, potassium is 5.9, chloride was 111, CO2 is 20, BUN is 37 and creatinine is 1.3. Troponin was less than 0.0121, proBNP was 855. EKG showed sinus rhythm with ST segment depression in the inferior leads, no ST segment elevation with a nonspecific intraventricular conduction delay. Patient was in moderate to severe respiratory distress she was placed on BiPAP for respiratory support, he was given bronchodilators, IV steroids, and subsequently his breathing has improved, patient was then switched to 3 L nasal cannula. He is breathing more comfortably though he still short of breath with any exertion and with conversation. On 05/21/2022 patient is in follow-up on selective care unit, patient still reports coughing, with phlegm production, sputum sample was sent for culture, Gram stain showed rare PMNs, few gram-positive cocci and few gram-negative bacilli, final cultures pending, patient is on azithromycin, IV Solu-Medrol, nebulized bronchodilators. He states he feels a little bit of improvement, however his not back to baseline, we'll continue with inpatient treatment Objective - Vital Signs Vital signs: Vital Signs Temp 97.3 F L 05/21/22 12:00 Pulse 102 H 05/21/22 12:36 Resp 18 05/21/22 12:00 BP 162/67 05/21/22 12:00 Pulse Ox 92 L 05/21/22 12:00 FiO2 30 05/20/22 15:50 Intake & Output 05/20/22 05/21/22 05/21/22 18:59 06:59 18:59 Intake Total 1080 Output Total 300 450 450 Balance 780 -450 -450 Weight 65.771 kg Intake: IV 700 Calcium Gluconate in NaCl 100 1 gm In Saline 1 100ml. bag @ 100 mls/hr IVPB ONCE ONE Rx#:[id number] Sodium Chloride 0.9% 1, 600 000 ml @ 75 mls/hr IV . [id number] [facility] Rx#:[id number] Oral 380 Output: Urine 300 450 450 Other: Voiding Method Urinal # Bowel Movements 1 - Exam GENERAL EXAM: Alert, very pleasant, 58-year-old white male, 3 L of oxygen, short of breath at rest and with conversation, in no apparent distress. HEAD: Normocephalic/atraumatic. EYES: Normal reaction of pupils, equal size. Conjunctiva pink, sclera white. NOSE: Clear with pink turbinates. THROAT: No erythema or exudates. NECK: No masses, no JVD, no thyroid enlargement, no adenopathy. CHEST: No chest wall deformity. Symmetrical expansion. LUNGS: Diminished air entry with diffuse wheezes CVS: Regular rate and rhythm, normal S1 and S2, no gallops, no murmurs, no rubs ABDOMEN: Soft, nontender. No hepatosplenomegaly, normal bowel sounds, no guarding or rigidity. EXTREMITIES: No clubbing, no edema, no cyanosis, 2+ pulses and upper and lower extremities. MUSCULOSKELETAL: Muscle strength and tone normal. SPINE: No scoliosis or deformity SKIN: No rashes CENTRAL NERVOUS SYSTEM: Alert and oriented -3. No focal deficits, tone is normal in all 4 extremities. PSYCHIATRIC: Alert and oriented -3. Appropriate affect. Intact judgment and insight. - Labs CBC & Chem 7: 05/21/22 09:45 05/21/22 09:45 Labs: Abnormal Lab Results - Last 24 Hours (Table) 05/20/22 05/20/22 05/20/22 Range/Units 16:34 16:44 20:07 RBC (4.30-5.90) m/uL Hgb (13.0-17.5) gm/dL Hct (39.0-53.0) % MCV (80.0-100.0) fL Sodium (137-145) mmol/L Potassium 5.5 H (3.5-5.1) mmol/L Chloride (98-107) mmol/L Carbon Dioxide (22-30) mmol/L BUN (9-20) mg/dL Glucose (74-99) mg/dL POC Glucose (mg/dL) 186 H 155 H (70-110) mg/dL 05/21/22 05/21/22 05/21/22 Range/Units 06:00 09:45 09:45 RBC 3.00 L (4.30-5.90) m/uL Hgb 9.7 L (13.0-17.5) gm/dL Hct 31.2 L (39.0-53.0) % MCV 104.0 H (80.0-100.0) fL Sodium 146 H (137-145) mmol/L Potassium (3.5-5.1) mmol/L Chloride 110 H (98-107) mmol/L Carbon Dioxide 19 L (22-30) mmol/L BUN 31 H (9-20) mg/dL Glucose 139 H (74-99) mg/dL POC Glucose (mg/dL) 174 H (70-110) mg/dL 05/21/22 Range/Units 11:51 RBC (4.30-5.90) m/uL Hgb (13.0-17.5) gm/dL Hct (39.0-53.0) % MCV (80.0-100.0) fL Sodium (137-145) mmol/L Potassium (3.5-5.1) mmol/L Chloride (98-107) mmol/L Carbon Dioxide (22-30) mmol/L BUN (9-20) mg/dL Glucose (74-99) mg/dL POC Glucose (mg/dL) 161 H (70-110) mg/dL Microbiology - Last 24 Hours (Table) 05/20/22 14:15 Gram Stain - Preliminary Sputum Sputum Culture - Preliminary Assessment and Plan Plan: Assessment: #1. Acute exacerbation of COPD, requiring BiPAP support. Chest x-ray showing no acute cardiopulmonary disease #2. History of advanced COPD with baseline FEV1 of 1.12 L or 34% of predicted on home oxygen at 3 L/m #3. Extensive history of smoking, currently in remission, patient carries 50 years of smoking, of 1 to 2 packs a day #4. History of rheumatoid arthritis #5. Psoriasis #6. Hypertension #7. Hyperlipidemia #8. CAD with previous stenting #9. Peripheral vascular disease with history of intervention, previous stenting of bilateral iliacs in 2013 #10. Previous history of MRSA infection #11. Chronic ulceration of the left foot Plan: Continue current medical treatment Patient slightly improved, but still quite bronchospastic and congested Continue IV steroids, nebulized bronchodilators, and azithromycin, sputum cultures pending Use BiPAP support as needed We'll continue to follow patient's clinical course I have personally seen and examined the patient, performed the documentation and the assessment and plan as written. Number of minutes spent on the visit: 15 I have personally seen and examined the patient and reviewed the documentation. I performed a joint evaluation with the nurse practitioner in this evaluation was done more than 20 minutes. I fully agree with the documentation above and the plan of care.. The patient is being treated aggressively with bronchodilators and steroids, and the patient is feeling slightly better compar ed to yesterday. No other new complaints otherwise for now. The plan is to continue same treatment as the patient's advanced COPD with his current exacerbating. Time with Patient: Less than 30
[2022-05-21 14:25] VITALS: BMI 21.4
[2022-05-21 16:44] LABS: Glucose,Whole Blood 181 mg/dL (70-110)
[2022-05-21 19:36] LABS: Glucose,Whole Blood 227 mg/dL (70-110)
[2022-05-21] MEDS: SODIUM CHLORIDE 0.9% 1,000 ML IV SCH (19:52)
--- NOTE | 2022-05-21 19:58 | P.PN ---
Subjective Progress Note Date: 05/21/22 H&P Date: 05/20/22 Chief Complaint: Worsening dyspnea This is a 66-year-old gentleman with past medical history of CAD with stents, advanced COPD, DVT, gastroesophageal reflux disease, hyperlipidemia, hypertension, memory impairment, osteoarthritis, rheumatoid arthritis, extensive nicotine dependence and multiple other medical issues presented to the ER with worsening dyspnea over the last few days. Denies chest pain, palpitations. Chest x-ray reported no acute cardiopulmonary disease. Afebrile, normal WBC, hemoglobin 11, platelets 228, BUN 37, creatinine 1.3, potassium 5.9, magnesium 1.8. Troponin negative 1, alk phos 154. 05/21/2022 dark black stool, patient is on iron, hemoglobin 9.7. Renal function continues to improve, BUN 31, creatinine down to 0.89. Potassium normalized. Continues on azithromycin, preliminary sputum culture reporting Gram stain showed rare PMNs, few gram-positive cocci and few gram-negative bacilli. Maintained on nebulized bronchodilators, IV steroids, congested/bronchospasms. Maintaining O2 sats in the 90s on 3 L nasal cannula. Nauseated with emesis this morning. Objective - Vital Signs Vital signs: Vital Signs Temp 97.5 F L 05/21/22 08:50 Pulse 82 05/21/22 08:59 Resp 22 05/21/22 08:50 BP 142/79 05/21/22 08:50 Pulse Ox 96 05/21/22 09:02 FiO2 30 05/20/22 15:50 Intake & Output 05/20/22 05/21/22 05/21/22 18:59 06:59 18:59 Intake Total 1080 Output Total 300 450 450 Balance 780 -450 -450 Weight 65.771 kg Intake: IV 700 Calcium Gluconate in NaCl 100 1 gm In Saline 1 100ml. bag @ 100 mls/hr IVPB ONCE ONE Rx#:[id number] Sodium Chloride 0.9% 1, 600 000 ml @ 75 mls/hr IV . [id number] [facility] Rx#:[id number] Oral 380 Output: Urine 300 450 450 Other: Voiding Method Urinal # Bowel Movements 1 - Exam GENERAL: Cachectic,alert and oriented x3, sitting up on bedside commode, no acute distress. HEENT: Pupils are round and equally reacting to light. EOMI. No scleral icterus. No conjunctival pallor. Normocephalic, atraumatic. CARDIOVASCULAR: S1 and S2 present. No murmurs, rubs, or gallops. -PULMONARY: Congested, diminished with diffuse scattered expiratory wheezing throughout. ABDOMEN: Soft, nondistended, nontender, positive bowel sounds .No palpable organomegaly. -EXTREMITIES: No cyanosis, clubbing, or pedal edema. NEUROLOGICAL: Gross neurological examination did not reveal any focal deficits. SKIN: No rashes. Warm and dry. - Labs CBC & Chem 7: 05/21/22 09:45 05/21/22 09:45 Labs: Abnormal Lab Results - Last 24 Hours (Table) 05/20/22 05/20/22 05/20/22 Range/Units 16:34 16:44 20:07 RBC (4.30-5.90) m/uL Hgb (13.0-17.5) gm/dL Hct (39.0-53.0) % MCV (80.0-100.0) fL Sodium (137-145) mmol/L Potassium 5.5 H (3.5-5.1) mmol/L Chloride (98-107) mmol/L Carbon Dioxide (22-30) mmol/L BUN (9-20) mg/dL Glucose (74-99) mg/dL POC Glucose (mg/dL) 186 H 155 H (70-110) mg/dL 05/21/22 05/21/22 05/21/22 Range/Units 06:00 09:45 09:45 RBC 3.00 L (4.30-5.90) m/uL Hgb 9.7 L (13.0-17.5) gm/dL Hct 31.2 L (39.0-53.0) % MCV 104.0 H (80.0-100.0) fL Sodium 146 H (137-145) mmol/L Potassium (3.5-5.1) mmol/L Chloride 110 H (98-107) mmol/L Carbon Dioxide 19 L (22-30) mmol/L BUN 31 H (9-20) mg/dL Glucose 139 H (74-99) mg/dL POC Glucose (mg/dL) 174 H (70-110) mg/dL 05/21/22 Range/Units 11:51 RBC (4.30-5.90) m/uL Hgb (13.0-17.5) gm/dL Hct (39.0-53.0) % MCV (80.0-100.0) fL Sodium (137-145) mmol/L Potassium (3.5-5.1) mmol/L Chloride (98-107) mmol/L Carbon Dioxide (22-30) mmol/L BUN (9-20) mg/dL Glucose (74-99) mg/dL POC Glucose (mg/dL) 161 H (70-110) mg/dL Microbiology - Last 24 Hours (Table) 05/20/22 14:15 Gram Stain - Preliminary Sputum Sputum Culture - Preliminary Assessment and Plan Assessment: Acute exacerbation of COPD, currently BiPAP dependent, in a patient with history of advanced COPD Chronic respiratory failure, wears 3 L nasal cannula O2 at home Protein calorie malnutrition, moderate BMI 21.4 Acute renal failure secondary to dehydration related to decreased oral intake, improving History of Moderate size hiatal hernia Chronic right femoral head avascular necrosis Hypertension Hyperlipidemia CAD, status post 4 stents History of the venous thrombosis Peripheral vascular disease, history of bilateral iliac stenting GERD Memory impairment Osteoarthritis Rheumatoid arthritis History of dislocation Psoriasis, history of History of MRSA Chronic hip and back pain status post back surgery and fusion History of extensive nicotine dependence Plan: Continue on current medication regime ,monitoring and symptomatic treatment. Sputum culture finalizing. Maintain aggressive pulmonary toileting with nebulized bronchodilators, systemic steroids PRN BIPAP. Close monitoring of renal function, electrolytes with repeat labs ordered for a.m. The impression and plan of care has been dictated as directed. : I performed a history and examination of this patient, discussed the same with the dictator. I agree with the dictator's note ,documented as a scribe. Any additional findings or plans will be noted.
[2022-05-21] MEDS: DONEPEZIL 5 MG TAB PO SCH (20:48)
[2022-05-21] MEDS: hydrOXYzine HCL 25 MG TAB PO SCH (20:48)
[2022-05-21] MEDS: ATORVASTATIN 80 MG TAB PO SCH (20:48)
[2022-05-21] MEDS: ACETAMINOPHEN TAB 325 MG TAB PO PRN (20:48)
[2022-05-21] MEDS ORDERED: ALPRAZolam 0.5 MG TAB PO PRN (22:01)
[2022-05-22] MEDS: SODIUM CHLORIDE 0.9% 1,000 ML IV SCH (00:49)
[2022-05-22 05:53] LABS: Glucose,Whole Blood 236 mg/dL (70-110)
[2022-05-22] MEDS: methylPREDNISolone SOD SUCCI 125 MG/2 ML VIAL IV SCH ×4 (06:11→23:45)
[2022-05-22] MEDS: guaiFENesin SYRUP 100MG/5ML 200 MG/10 ML CUP PO PRN (06:11)
[2022-05-22] MEDS: INSULIN ASPART (NovoLOG) 100 UNIT/ML VIAL SQ SCH ×4 (06:11→21:21)
[2022-05-22] MEDS: IPRATROPIUM-ALBUTEROL 3 ML NEB INHALATION SCH ×4 (07:26→19:03)
[2022-05-22] MEDS: METOPROLOL SUCCINATE (ER) 25 MG TAB.ER.24H PO SCH (07:59)
[2022-05-22] MEDS: ALPRAZolam 0.5 MG TAB PO PRN ×2 (07:59→18:58)
[2022-05-22] MEDS: FERROUS SULFATE 325 MG TAB PO SCH (08:00)
[2022-05-22] MEDS: FAMOTIDINE 20 MG TAB PO SCH (08:00)
[2022-05-22] MEDS: AZITHROMYCIN 500 MG TAB PO SCH (08:00)
[2022-05-22] MEDS: GABAPENTIN 300 MG CAP PO SCH ×3 (08:00→21:22)
[2022-05-22] MEDS: CITALOPRAM HYDROBROMIDE 20 MG TAB PO SCH (08:01)
[2022-05-22 09:29] LABS: African American GFR (CKD) >90 (>60 ml/min/1.73 sqM); Anion Gap 18 mmol/L; Blood Urea Nitrogen 30 mg/dL (9-20); Calcium 9.2 mg/dL (8.4-10.2); Carbon Dioxide 20 mmol/L (22-30); Chloride 109 mmol/L (98-107); Glucose 59 mg/dL (74-99); Non-African American GFR(CKD) >90 (>60 ml/min/1.73 sqM); Potassium 4.8 mmol/L (3.5-5.1); Sodium 147 mmol/L (137-145)
[2022-05-22 12:09] LABS: Glucose,Whole Blood 140 mg/dL (70-110)
[2022-05-22] MEDS: ACETAMINOPHEN TAB 325 MG TAB PO PRN ×2 (12:50→17:36)
--- NOTE | 2022-05-22 15:57 | CDI ---
Documentation Clarification Form Date: 05/22/2022 03:37:10 PM From: Steffany Campuzano RN CCDS Admit Date: 05/19/2022 07:23:00 PM Patient Name: Carmita Tineo Visit Number: [id number] Discharge Date: ATTENTION: The Clinical Documentation Specialists (CDI) and [facility] Coding Staff appreciate your assistance in clarifying documentation. Please respond to the clarification below the line at the bottom and electronically sign. The CDI & [facility] Coding staff will review the response and follow-up if needed. Please note: Queries are made part of the Legal Health Record. If you have any questions, please contact the author of this message via ITS. Dr. David Woodson Your patient has the documented diagnosis of unspecified Heart Failure 05/20, H&P. Additional information regarding the type, acuity of Heart Failure is requested. History/Risk Factors: 66-year-old male presents to the ED with worsening dyspnea over a few days. Medical History: Advanced COPD; HTN and Heart Failure. H&P,05/20. Clinical Indicators: Home Medications: H&P,05/20 Toprol XL 25mg PO Daily; Lasix 20mg PO Daily VS/Pulse OX, 05/19: B/P 114/67; HR 70; Temp 98.0 F Oral; RR 26; SpO2 99% 3L nasal cannula BNP, 05/19: 855 Echocardiogram Results:`09/13/2019 Ventricular systolic function is moderate severely impaired with, an EF between 30-35%. Left atrium is mildly dilated. LA is mildly dilated, Mild aortic valve sclerosis, mild mitral annular calcification present. Mild mitral regurgitation, Mild tricuspid regurgitation. Chest X Ray, 05/19: No acute cardiopulmonary disease/process. Moderate COPD changes. Treatment: 05/20 Toprol XL 25mg PO Daily In your professional opinion, can you please clarify the acuity and type of Heart Failure if known? [X ] Chronic Systolic Heart Failure (reduced EF) [ ] Other, please specify [ ] Unable to determine (Template Last Revised: November 2020) MTDD
--- NOTE | 2022-05-22 16:27 | P.PN ---
Subjective Progress Note Date: 05/22/22 Principal diagnosis: Shortness of breath 66-year-old male patient with severe COPD, on home oxygen at 3 L, who sees Dr. Bermudez in the pulmonary office, former smoker, history of CAD, hypertension, hyperlipidemia, osteoarthritis, psoriasis, gout, DVT, peripheral vascular disease with intervention. Patient's baseline FEV1 is 1.12 L or 34% of predicted. He wears 3 L of oxygen on a regular basis. On 05/19/2022 patient came in to the emergency department for evaluation of increasing dyspnea over the past several weeks. This has especially worsened over the last 3 days. He denied any fever, no complaints of chest pain. No lower extremity pain or swelling. As of note patient is vaccinated against COVID-19. His chest x-ray showed no acute cardiopulmonary disease. Moderate COPD. Admission blood work showed normal white count of 10.1, hemoglobin of 11.0, weight in addition profile was within normal limits, potassium is 5.9, chloride was 111, CO2 is 20, BUN is 37 and creatinine is 1.3. Troponin was less than 0.0121, proBNP was 855. EKG showed sinus rhythm with ST segment depression in the inferior leads, no ST segment elevation with a nonspecific intraventricular conduction delay. Patient was in moderate to severe respiratory distress she was placed on BiPAP for respiratory support, he was given bronchodilators, IV steroids, and subsequently his breathing has improved, patient was then switched to 3 L nasal cannula. He is breathing more comfortably though he still short of breath with any exertion and with conversation. On 05/21/2022 patient is in follow-up on selective care unit, patient still reports coughing, with phlegm production, sputum sample was sent for culture, Gram stain showed rare PMNs, few gram-positive cocci and few gram-negative bacilli, final cultures pending, patient is on azithromycin, IV Solu-Medrol, nebulized bronchodilators. He states he feels a little bit of improvement, however his not back to baseline, we'll continue with inpatient treatment on 05/22/2022 patient seen in follow-up on selective care unit, he is resting in bed, less bronchospastic and congested, patient remains on 3 L of oxygen pulse ox is 96-99%, he is afebrile, he is short of breath with any activity however seems less congested. Today's labs have been reviewed, sodium is 147, potassium is 4.8, BUN is 30, creatinine 0.73.patient continues on IV Solu-Medrol. Objective - Vital Signs Vital signs: Vital Signs Temp 98.0 F 05/22/22 12:00 Pulse 85 05/22/22 15:26 Resp 26 H 05/22/22 12:00 BP 159/61 05/22/22 12:00 Pulse Ox 99 05/22/22 15:12 FiO2 30 05/20/22 15:50 Intake & Output 05/21/22 05/22/22 05/22/22 18:59 06:59 18:59 Intake Total 0 Output Total 700 200 100 Balance -700 -200 -100 Weight 65.771 kg Intake: Oral 0 Output: Urine 700 200 100 Other: Voiding Method Urinal Urinal Urinal # Voids 2 # Bowel Movements 1 - Exam GENERAL EXAM: Alert, very pleasant, 66-year-old white male, 3 L of oxygen, short of breath at rest and with conversation, in no apparent distress. HEAD: Normocephalic/atraumatic. EYES: Normal reaction of pupils, equal size. Conjunctiva pink, sclera white. NOSE: Clear with pink turbinates. THROAT: No erythema or exudates. NECK: No masses, no JVD, no thyroid enlargement, no adenopathy. CHEST: No chest wall deformity. Symmetrical expansion. LUNGS: Diminished air entry with diffuse wheezes CVS: Regular rate and rhythm, normal S1 and S2, no gallops, no murmurs, no rubs ABDOMEN: Soft, nontender. No hepatosplenomegaly, normal bowel sounds, no guarding or rigidity. EXTREMITIES: No clubbing, no edema, no cyanosis, 2+ pulses and upper and lower extremities. MUSCULOSKELETAL: Muscle strength and tone normal. SPINE: No scoliosis or deformity SKIN: No rashes CENTRAL NERVOUS SYSTEM: Alert and oriented -3. No focal deficits, tone is normal in all 4 extremities. PSYCHIATRIC: Alert and oriented -3. Appropriate affect. Intact judgment and insight. - Labs CBC & Chem 7: 05/21/22 09:45 05/22/22 08:13 Labs: Abnormal Lab Results - Last 24 Hours (Table) 05/21/22 05/21/22 05/22/22 Range/Units 16:42 19:34 05:50 Sodium (137-145) mmol/L Chloride (98-107) mmol/L Carbon Dioxide (22-30) mmol/L BUN (9-20) mg/dL Glucose (74-99) mg/dL POC Glucose (mg/dL) 181 H 227 H 236 H (70-110) mg/dL 05/22/22 05/22/22 Range/Units 08:13 12:08 Sodium 147 H (137-145) mmol/L Chloride 109 H (98-107) mmol/L Carbon Dioxide 20 L (22-30) mmol/L BUN 30 H (9-20) mg/dL Glucose 59 L (74-99) mg/dL POC Glucose (mg/dL) 140 H (70-110) mg/dL Microbiology - Last 24 Hours (Table) 05/20/22 14:15 Gram Stain - Final Sputum Sputum Culture - Final Assessment and Plan Plan: Assessment: #1. Acute exacerbation of COPD, requiring BiPAP support. Chest x-ray showing no acute cardiopulmonary disease #2. History of advanced COPD with baseline FEV1 of 1.12 L or 34% of predicted on home oxygen at 3 L/m #3. Extensive history of smoking, currently in remission, patient carries 50 years of smoking, of 1 to 2 packs a day #4. History of rheumatoid arthritis #5. Psoriasis #6. Hypertension #7. Hyperlipidemia #8. CAD with previous stenting #9. Peripheral vascular disease with history of intervention, previous stenting of bilateral iliacs in 2012 #10. Previous history of MRSA infection #11. Chronic ulceration of the left foot Plan: Continue current med treatment Same solumedrol dose Improving, breathing easier We'll continue to follow patient's clinical course D5W at 50, follow up BMP in am I have personally seen and examined the patient and reviewed the documentation. I performed a joint evaluation with the nurse practitioner in this evaluation was done more than 20 minutes. I fully agree with the documentation above and the plan of care. The patient is clinically improving. To breath compared to yesterday. We'll continue the Robitussin steroids for another 24 hours and keep the IV Solu-Medrol to high dose. Time with Patient: Less than 30
[2022-05-22] MEDS ORDERED: DEXTROSE 5% IN WATER 1,000 ML IV SCH (16:30)
[2022-05-22 17:02] LABS: Glucose,Whole Blood 163 mg/dL (70-110)
--- NOTE | 2022-05-22 19:25 | P.PN ---
Subjective Progress Note Date: 05/22/22 patient is seen today with increasing cough and wheezing despite pulmonary treatment. He has a lot of difficulty breathing and wheezing. He states he had a rough night due to this. Objective - Vital Signs Vital signs: Vital Signs Temp 97.7 F 05/22/22 16:00 Pulse 113 H 05/22/22 19:03 Resp 24 05/22/22 16:00 BP 107/57 05/22/22 16:00 Pulse Ox 99 05/22/22 16:00 FiO2 30 05/20/22 15:50 Intake & Output 05/22/22 05/22/22 05/23/22 06:59 18:59 06:59 Intake Total 358 Output Total 200 1100 Balance -200 -742 Intake: Oral 358 Output: Urine 200 1100 Straight 800 Other: Voiding Method Urinal Urinal # Bowel Movements 2 - Exam GENERAL: Cachectic,alert and oriented x3, no acute distress. HEENT: Pupils are round and equally reacting to light. EOMI. No scleral icterus. No conjunctival pallor. Normocephalic, atraumatic. No pharyngeal erythema. No thyromegaly. CARDIOVASCULAR: S1 and S2 present. No murmurs, rubs, or gallops. -PULMONARY: Limited air entry, diminished with diffuse scattered expiratory wheezing throughout ABDOMEN: Soft, nondistended, nontender, positive bowel sounds .No palpable organomegaly. -EXTREMITIES: No cyanosis, clubbing, or pedal edema. NEUROLOGICAL: Gross neurological examination did not reveal any focal deficits. SKIN: No rashes. Warm and dry. - Labs CBC & Chem 7: 05/21/22 09:45 05/22/22 08:13 Labs: Abnormal Lab Results - Last 24 Hours (Table) 05/21/22 05/22/22 05/22/22 Range/Units 19:34 05:50 08:13 Sodium 147 H (137-145) mmol/L Chloride 109 H (98-107) mmol/L Carbon Dioxide 20 L (22-30) mmol/L BUN 30 H (9-20) mg/dL Glucose 59 L (74-99) mg/dL POC Glucose (mg/dL) 227 H 236 H (70-110) mg/dL 05/22/22 05/22/22 Range/Units 12:08 16:58 Sodium (137-145) mmol/L Chloride (98-107) mmol/L Carbon Dioxide (22-30) mmol/L BUN (9-20) mg/dL Glucose (74-99) mg/dL POC Glucose (mg/dL) 140 H 163 H (70-110) mg/dL Microbiology - Last 24 Hours (Table) 05/20/22 14:15 Gram Stain - Final Sputum Sputum Culture - Final Assessment and Plan (1) COPD exacerbation Current Visit: Yes Status: Acute Code(s): J44.1 - CHRONIC OBSTRUCTIVE PULMONARY DISEASE W (ACUTE) EXACERBATION SNOMED Code(s): 191899957 (2) GERD (gastroesophageal reflux disease) Current Visit: No Status: Acute Code(s): K21.9 - GASTRO-ESOPHAGEAL REFLUX DISEASE WITHOUT ESOPHAGITIS SNOMED Code(s): 487714299 (3) Peripheral arterial disease Current Visit: No Status: Acute Code(s): I73.9 - PERIPHERAL VASCULAR DISEASE, UNSPECIFIED SNOMED Code(s): 944897116 (4) Respiratory failure with hypoxia Current Visit: No Status: Acute Code(s): J96.91 - RESPIRATORY FAILURE, UNSPECIFIED WITH HYPOXIA SNOMED Code(s): 89329019954688871 (5) Psoriatic arthritis Current Visit: Yes Status: Acute Code(s): L40.50 - ARTHROPATHIC PSORIASIS, UNSPECIFIED SNOMED Code(s): 093270790 Plan: patient seen today continues pulmonary treatment complete with IV antibiotics IV steroids updrafts and hydration. Will try to control phlegm and nausea and vomiting.
[2022-05-22 21:12] LABS: Glucose,Whole Blood 164 mg/dL (70-110)
[2022-05-22] MEDS: hydrOXYzine HCL 25 MG TAB PO SCH (21:22)
[2022-05-22] MEDS: ATORVASTATIN 80 MG TAB PO SCH (21:22)
[2022-05-22] MEDS: DONEPEZIL 5 MG TAB PO SCH (21:22)
[2022-05-23 05:54] LABS: Glucose,Whole Blood 183 mg/dL (70-110)
[2022-05-23] MEDS: methylPREDNISolone SOD SUCCI 125 MG/2 ML VIAL IV SCH ×2 (05:58→12:06)
[2022-05-23] MEDS: ACETAMINOPHEN TAB 325 MG TAB PO PRN (05:59)
[2022-05-23] MEDS: INSULIN ASPART (NovoLOG) 100 UNIT/ML VIAL SQ SCH ×4 (06:45→21:12)
[2022-05-23] MEDS: IPRATROPIUM-ALBUTEROL 3 ML NEB INHALATION SCH ×4 (08:00→20:14)
[2022-05-23] MEDS: traMADol 50 MG TAB PO SCH ×2 (09:47→21:10)
[2022-05-23] MEDS: CITALOPRAM HYDROBROMIDE 20 MG TAB PO SCH (09:47)
[2022-05-23] MEDS: FAMOTIDINE 20 MG TAB PO SCH (09:47)
[2022-05-23] MEDS: GABAPENTIN 300 MG CAP PO SCH ×3 (09:47→21:10)
[2022-05-23] MEDS: FERROUS SULFATE 325 MG TAB PO SCH (09:47)
[2022-05-23] MEDS: METOPROLOL SUCCINATE (ER) 25 MG TAB.ER.24H PO SCH (09:48)
[2022-05-23] MEDS: SODIUM CHLORIDE 0.9% 1,000 ML IV SCH ×2 (09:48→20:49)
[2022-05-23 12:05] LABS: Glucose,Whole Blood 219 mg/dL (70-110)
[2022-05-23] MEDS: ALPRAZolam 0.5 MG TAB PO PRN (12:05)
[2022-05-23] MEDS: guaiFENesin SYRUP 100MG/5ML 200 MG/10 ML CUP PO PRN (12:05)
--- NOTE | 2022-05-23 15:08 | P.PN ---
Subjective Progress Note Date: 05/23/22 66-year-old male patient with severe COPD, on home oxygen at 3 L, who sees Dr. Bermudez in the pulmonary office, former smoker, history of CAD, hypertension, hyperlipidemia, osteoarthritis, psoriasis, gout, DVT, peripheral vascular disease with intervention. Patient's baseline FEV1 is 1.12 L or 34% of predi cted. He wears 3 L of oxygen on a regular basis. On 05/19/2022 patient came in to the emergency department for evaluation of increasing dyspnea over the past several weeks. This has especially worsened over the last 3 days. He denied any fever, no complaints of chest pain. No lower extremity pain or swelling. As of note patient is vaccinated against COVID-19. His chest x-ray showed no acute cardiopulmonary disease. Moderate COPD. Admission blood work showed normal white count of 10.1, hemoglobin of 11.0, weight in addition profile was within normal limits, potassium is 5.9, chloride was 111, CO2 is 20, BUN is 37 and creatinine is 1.3. Troponin was less than 0.0121, proBNP was 855. EKG showed sinus rhythm with ST segment depression in the inferior leads, no ST segment elevation with a nonspecific intraventricular conduction delay. Patient was in moderate to severe respiratory distress she was placed on BiPAP for respiratory support, he was given bronchodilators, IV steroids, and subsequently his breathing has improved, patient was then switched to 3 L nasal cannula. He is breathing more comfortably though he still short of breath with any exertion and with conversation. On 05/21/2022 patient is in follow-up on selective care unit, patient still reports coughing, with phlegm production, sputum sample was sent for culture, Gram stain showed rare PMNs, few gram-positive cocci and few gram-negative bacilli, final cultures pending, patient is on azithromycin, IV Solu-Medrol, nebulized bronchodilators. He states he feels a little bit of improvement, however his not back to baseline, we'll continue with inpatient treatment on 05/22/2022 patient seen in follow-up on selective care unit, he is resting in bed, less bronchospastic and congested, patient remains on 3 L of oxygen pulse ox is 96-99%, he is afebrile, he is short of breath with any activity however se ems less congested. Today's labs have been reviewed, sodium is 147, potassium is 4.8, BUN is 30, creatinine 0.73.patient continues on IV Solu-Medrol. The patient is seen today 05/23/2022 in follow-up on the selective care unit. He is currently resting comfortably in bed. Awake and alert in no acute distress. Breathing better today compared to yesterday. Nearly back to his baseline. he is maintaining good O2 saturations in the 90s on 3 L/m per nasal cannula. Afebrile. Hemodynamically stable. Sputum culture revealed no growth. Blood glucose 219. He is continued on DuoNeb inhalations, IV Solu-Medrol. Objective - Vital Signs Vital signs: Vital Signs Temp 98.2 F 05/23/22 12:00 Pulse 104 H 05/23/22 12:00 Resp 28 H 05/23/22 12:00 BP 122/59 05/23/22 12:00 Pulse Ox 98 05/23/22 12:00 FiO2 50 05/23/22 08:00 Intake & Output 05/22/22 05/23/22 05/23/22 18:59 06:59 18:59 Intake Total 358 Output Total 1100 1850 Balance -742 -1850 Weight 65.771 kg Intake: Oral 358 Output: Urine 1100 1850 Straight 800 Other: Voiding Method Urinal Urinal Urinal # Voids 2 # Bowel Movements 2 2 - Exam GENERAL EXAM: Alert, pleasant 66-year-old male gentleman, on 3 L nasal cannula, comfortable in no apparent distress. HEAD: Normocephalic. EYES: Normal reaction of pupils, equal size. NOSE: Clear with pink turbinates. THROAT: No erythema or exudates. NECK: No masses, no JVD. CHEST: No chest wall deformity. LUNGS: Equal air entry with end expiratory wheeze, few scattered rhonchi, diminished. CVS: S1 and S2 normal with no audible murmur, regular rhythm. ABDOMEN: No hepatosplenomegaly, normal bowel sounds, no guarding or rigidity. SPINE: No scoliosis or deformity SKIN: No rashes CENTRAL NERVOUS SYSTEM: No focal deficits, tone is normal in all 4 extremities. EXTREMITIES: There is no peripheral edema. No clubbing, no cyanosis. Peripheral pulses are intact. - Labs CBC & Chem 7: 05/21/22 09:45 05/22/22 08:13 Labs: Abnormal Lab Results - Last 24 Hours (Table) 05/22/22 05/22/22 05/23/22 Range/Units 16:58 21:11 05:52 POC Glucose (mg/dL) 163 H 164 H 183 H (70-110) mg/dL 05/23/22 Range/Units 11:53 POC Glucose (mg/dL) 219 H (70-110) mg/dL Microbiology - Last 24 Hours (Table) 05/20/22 14:15 Gram Stain - Final Sputum Sputum Culture - Final Assessment and Plan Assessment: Acute exacerbation of COPD, requiring BiPAP support. Chest x-ray showing no acute cardiopulmonary disease History of advanced COPD with baseline FEV1 of 1.12 L or 34% of predicted on home oxygen at 3 L/m Extensive history of smoking, currently in remission, patient carries 50 years of smoking, of 1 to 2 packs a day History of rheumatoid arthritis Psoriasis Hypertension Hyperlipidemia CAD with previous stenting Peripheral vascular disease with history of intervention, previous stenting of bilateral iliacs in 2012 Previous history of MRSA infection Chronic ulceration of the left foot Plan: The patient was seen and evaluated Improved but not quite back to his baseline Continue current treatment plan We will continue to follow I have personally seen and examined the patient, performed the documentation and the assessment and plan as written. Number of minutes spent on the visit: 10. I have personally seen and examined the patient and reviewed the documentation. I performed a joint evaluation with the nurse practitioner in this evaluation was done more than 20 minutes. I fully agree with the documentation above and the plan of care.. The patient is clinically stable. Will continue same treatment for now. We'll start tapering the steroids on this patient.
[2022-05-23 16:41] LABS: Glucose,Whole Blood 171 mg/dL (70-110)
[2022-05-23] MEDS: methylPREDNISolone SOD SUCCI 40 MG/ML 1 ML VIAL IV SCH (21:10)
[2022-05-23] MEDS: ATORVASTATIN 80 MG TAB PO SCH (21:10)
[2022-05-23] MEDS: DONEPEZIL 5 MG TAB PO SCH (21:11)
[2022-05-23] MEDS: hydrOXYzine HCL 25 MG TAB PO SCH (21:11)
[2022-05-23 21:12] LABS: Glucose,Whole Blood 140 mg/dL (70-110)
--- NOTE | 2022-05-23 22:14 | P.PN ---
Subjective Progress Note Date: 05/23/22 Patient is a 66-year-old white male admitted for acute exacerbation of COPD. He is doing somewhat better today with his acute respiratory failure he currently is on BiPAP. His vomiting is less and he actually had a pretty good night sleep Objective - Vital Signs Vital signs: Vital Signs Temp 97.7 F 05/23/22 20:20 Pulse 106 H 05/23/22 20:32 Resp 24 05/23/22 20:20 BP 138/54 05/23/22 20:20 Pulse Ox 100 05/23/22 20:20 FiO2 50 05/23/22 08:00 Intake & Output 05/23/22 05/23/22 05/24/22 06:59 18:59 06:59 Intake Total 1760 200 Output Total 1850 450 Balance -1850 1310 200 Weight 65.771 kg Intake: Intake, IV Titration 400 200 Amount Sodium Chloride 0.9% 1, 400 200 000 ml @ 50 mls/hr IV . Q20H [facility] Rx#:[id number] Oral 1360 Output: Urine 1850 450 Other: Voiding Method Urinal Urinal Urinal # Voids 2 # Bowel Movements 2 - Exam GENERAL: Cachectic,alert and oriented x3, no acute distress. HEENT: Pupils are round and equally reacting to light. EOMI. No scleral icterus. No conjunctival pallor. Normocephalic, atraumatic. No pharyngeal erythema. No thyromegaly. CARDIOVASCULAR: S1 and S2 present. No murmurs, rubs, or gallops. -PULMONARY: Limited air entry, diminished with diffuse scattered expiratory wheezing throughout ABDOMEN: Soft, nondistended, nontender, positive bowel sounds .No palpable organomegaly. -EXTREMITIES: No cyanosis, clubbing, or pedal edema. NEUROLOGICAL: Gross neurological examination did not reveal any focal deficits. SKIN: No rashes. Warm and dry. - Labs CBC & Chem 7: 05/21/22 09:45 05/22/22 08:13 Labs: Abnormal Lab Results - Last 24 Hours (Table) 05/23/22 05/23/22 05/23/22 Range/Units 05:52 11:53 16:39 POC Glucose (mg/dL) 183 H 219 H 171 H (70-110) mg/dL 05/23/22 Range/Units 21:10 POC Glucose (mg/dL) 140 H (70-110) mg/dL Assessment and Plan (1) COPD exacerbation Current Visit: Yes Status: Acute Code(s): J44.1 - CHRONIC OBSTRUCTIVE PULMONARY DISEASE W (ACUTE) EXACERBATION SNOMED Code(s): 195851837 (2) GERD (gastroesophageal reflux disease) Current Visit: No Status: Acute Code(s): K21.9 - GASTRO-ESOPHAGEAL REFLUX DISEASE WITHOUT ESOPHAGITIS SNOMED Code(s): 939819436 (3) Peripheral arterial disease Current Visit: No Status: Acute Code(s): I73.9 - PERIPHERAL VASCULAR DISEASE, UNSPECIFIED SNOMED Code(s): 251162321 (4) Respiratory failure with hypoxia Current Visit: No Status: Acute Code(s): J96.91 - RESPIRATORY FAILURE, UNSPECIFIED WITH HYPOXIA SNOMED Code(s): 69074389444750963 (5) Psoriatic arthritis Current Visit: Yes Status: Acute Code(s): L40.50 - ARTHROPATHIC PSORIASIS, UNSPECIFIED SNOMED Code(s): 763410670 Plan: Continue IV steroids continue hydration and antibiotics patient remains BiPAP continue to follow patient's overall guarded prognosis.
[2022-05-24] MEDS: methylPREDNISolone SOD SUCCI 40 MG/ML 1 ML VIAL IV SCH ×3 (05:41→20:05)
[2022-05-24] MEDS: SODIUM CHLORIDE 0.9% 1,000 ML IV SCH (05:44)
[2022-05-24] MEDS: IPRATROPIUM-ALBUTEROL 3 ML NEB INHALATION SCH ×4 (06:20→20:17)
[2022-05-24 06:26] LABS: Glucose,Whole Blood 172 mg/dL (70-110)
[2022-05-24] MEDS: INSULIN ASPART (NovoLOG) 100 UNIT/ML VIAL SQ SCH ×4 (06:44→20:06)
[2022-05-24] MEDS: IPRATROPIUM-ALBUTEROL 3 ML NEB INHALATION PRN (08:06)
[2022-05-24] MEDS: METOPROLOL SUCCINATE (ER) 25 MG TAB.ER.24H PO SCH (08:51)
[2022-05-24] MEDS: CITALOPRAM HYDROBROMIDE 20 MG TAB PO SCH (08:51)
[2022-05-24] MEDS: traMADol 50 MG TAB PO SCH ×2 (08:51→20:05)
[2022-05-24] MEDS: GABAPENTIN 300 MG CAP PO SCH ×3 (08:51→20:05)
[2022-05-24] MEDS: FERROUS SULFATE 325 MG TAB PO SCH (08:51)
[2022-05-24] MEDS: FAMOTIDINE 20 MG TAB PO SCH (08:51)
--- NOTE | 2022-05-24 11:55 | P.PN ---
Subjective Progress Note Date: 05/24/22 66-year-old male patient with severe COPD, on home oxygen at 3 L, who sees Dr. Bermudez in the pulmonary office, former smoker, history of CAD, hypertension, hyperlipidemia, osteoarthritis, psoriasis, gout, DVT, peripheral vascular disease with intervention. Patient's baseline FEV1 is 1.12 L or 34% of predi cted. He wears 3 L of oxygen on a regular basis. On 05/19/2022 patient came in to the emergency department for evaluation of increasing dyspnea over the past several weeks. This has especially worsened over the last 3 days. He denied any fever, no complaints of chest pain. No lower extremity pain or swelling. As of note patient is vaccinated against COVID-19. His chest x-ray showed no acute cardiopulmonary disease. Moderate COPD. Admission blood work showed normal white count of 10.1, hemoglobin of 11.0, weight in addition profile was within normal limits, potassium is 5.9, chloride was 111, CO2 is 20, BUN is 37 and creatinine is 1.3. Troponin was less than 0.0121, proBNP was 855. EKG showed sinus rhythm with ST segment depression in the inferior leads, no ST segment elevation with a nonspecific intraventricular conduction delay. Patient was in moderate to severe respiratory distress she was placed on BiPAP for respiratory support, he was given bronchodilators, IV steroids, and subsequently his breathing has improved, patient was then switched to 3 L nasal cannula. He is breathing more comfortably though he still short of breath with any exertion and with conversation. On 05/21/2022 patient is in follow-up on selective care unit, patient still reports coughing, with phlegm production, sputum sample was sent for culture, Gram stain showed rare PMNs, few gram-positive cocci and few gram-negative bacilli, final cultures pending, patient is on azithromycin, IV Solu-Medrol, nebulized bronchodilators. He states he feels a little bit of improvement, however his not back to baseline, we'll continue with inpatient treatment on 05/22/2022 patient seen in follow-up on selective care unit, he is resting in bed, less bronchospastic and congested, patient remains on 3 L of oxygen pulse ox is 96-99%, he is afebrile, he is short of breath with any activity however se ems less congested. Today's labs have been reviewed, sodium is 147, potassium is 4.8, BUN is 30, creatinine 0.73.patient continues on IV Solu-Medrol. The patient is seen today 05/23/2022 in follow-up on the selective care unit. He is currently resting comfortably in bed. Awake and alert in no acute distress. Breathing better today compared to yesterday. Nearly back to his baseline. he is maintaining good O2 saturations in the 90s on 3 L/m per nasal cannula. Afebrile. Hemodynamically stable. Sputum culture revealed no growth. Blood glucose 219. He is continued on DuoNeb inhalations, IV Solu-Medrol. 05/24/2022, the patient is doing well. No significant shortness of breath or chest pain. Solu-Medrol will be gradually weaned down and the patient is currently on 40 mg of IV Solu Medrol to every 8 hours. No other new complaints for now and the labs are all stable. Objective - Vital Signs Vital signs: Vital Signs Temp 98.0 F 05/24/22 11:24 Pulse 84 05/24/22 11:32 Resp 20 05/24/22 11:24 BP 148/68 05/24/22 11:24 Pulse Ox 98 05/24/22 11:24 FiO2 50 05/23/22 08:00 Intake & Output 05/23/22 05/24/22 05/24/22 18:59 06:59 18:59 Intake Total 1760 200 240 Output Total 450 700 Balance 1310 -500 240 Weight 65.771 kg Intake: Intake, IV Titration 400 200 Amount Sodium Chloride 0.9% 1, 400 200 000 ml @ 50 mls/hr IV . Q20H [facility] Rx#:[id number] Oral 1360 240 Output: Urine 450 700 Other: Voiding Method Urinal Urinal # Voids 1 - Exam GENERAL EXAM: Alert, pleasant 66-year-old male gentleman, on 3 L nasal cannula, comfortable in no apparent distress. HEAD: Normocephalic. EYES: Normal reaction of pupils, equal size. NOSE: Clear with pink turbinates. THROAT: No erythema or exudates. NECK: No masses, no JVD. CHEST: No chest wall deformity. LUNGS: Equal air entry with end expiratory wheeze, few scattered rhonchi, diminished. CVS: S1 and S2 normal with no audible murmur, regular rhythm. ABDOMEN: No hepatosplenomegaly, normal bowel sounds, no guarding or rigidity. SPINE: No scoliosis or deformity SKIN: No rashes CENTRAL NERVOUS SYSTEM: No focal deficits, tone is normal in all 4 extremities. EXTREMITIES: There is no peripheral edema. No clubbing, no cyanosis. Perip heral pulses are intact. - Labs CBC & Chem 7: 05/21/22 09:45 05/22/22 08:13 Labs: Abnormal Lab Results - Last 24 Hours (Table) 05/23/22 05/23/22 05/23/22 Range/Units 11:53 16:39 21:10 POC Glucose (mg/dL) 219 H 171 H 140 H (70-110) mg/dL 05/24/22 Range/Units 06:24 POC Glucose (mg/dL) 172 H (70-110) mg/dL Assessment and Plan Plan: Assessment: #1. Acute exacerbation of COPD, requiring BiPAP support. Chest x-ray showing no acute cardiopulmonary disease #2. History of advanced COPD with baseline FEV1 of 1.12 L or 34% of predicted on home oxygen at 3 L/m #3. Extensive history of smoking, currently in remission, patient carries 50 years of smoking, of 1 to 2 packs a day #4. History of rheumatoid arthritis #5. Psoriasis #6. Hypertension #7. Hyperlipidemia #8. CAD with previous stenting #9. Peripheral vascular disease with history of intervention, previous stenting of bilateral iliacs in 2012 #10. Previous history of MRSA infection #11. Chronic ulceration of the left foot Plan: Continue same treatment We'll put the patient on prednisone burst taper as of tomorrow
[2022-05-24 12:06] LABS: Glucose,Whole Blood 133 mg/dL (70-110)
[2022-05-24] MEDS: ACETAMINOPHEN TAB 325 MG TAB PO PRN (15:43)
[2022-05-24 17:15] LABS: Glucose,Whole Blood 164 mg/dL (70-110)
[2022-05-24 19:32] LABS: Glucose,Whole Blood 176 mg/dL (70-110)
[2022-05-24] MEDS: ATORVASTATIN 80 MG TAB PO SCH (20:05)
[2022-05-24] MEDS: hydrOXYzine HCL 25 MG TAB PO SCH (20:06)
[2022-05-24] MEDS: DONEPEZIL 5 MG TAB PO SCH (20:06)
[2022-05-24] MEDS: TAMSULOSIN 0.4 MG CAP.ER.24H PO SCH (22:48)
[2022-05-24] MEDS: ALPRAZolam 0.5 MG TAB PO PRN (23:57)
[2022-05-25] MEDS: methylPREDNISolone SOD SUCCI 40 MG/ML 1 ML VIAL IV SCH (04:08)
[2022-05-25 06:18] LABS: Glucose,Whole Blood 132 mg/dL (70-110)
[2022-05-25] MEDS: INSULIN ASPART (NovoLOG) 100 UNIT/ML VIAL SQ SCH ×4 (06:20→22:30)
[2022-05-25] MEDS: IPRATROPIUM-ALBUTEROL 3 ML NEB INHALATION SCH ×4 (07:22→19:12)
[2022-05-25] MEDS: traMADol 50 MG TAB PO SCH ×2 (08:40→22:28)
[2022-05-25] MEDS: CITALOPRAM HYDROBROMIDE 20 MG TAB PO SCH (08:40)
[2022-05-25] MEDS: TAMSULOSIN 0.4 MG CAP.ER.24H PO SCH (08:40)
[2022-05-25] MEDS: METOPROLOL SUCCINATE (ER) 25 MG TAB.ER.24H PO SCH (08:40)
[2022-05-25] MEDS: FERROUS SULFATE 325 MG TAB PO SCH (08:40)
[2022-05-25] MEDS: GABAPENTIN 300 MG CAP PO SCH ×3 (08:41→22:28)
[2022-05-25] MEDS: FAMOTIDINE 20 MG TAB PO SCH (08:41)
[2022-05-25 08:58] LABS: Basophils % (A) 0 %; Eosinophils % (A) 0 %; HCT 32.5 % (39.0-53.0); HGB 10.3 gm/dL (13.0-17.5); Hypochromasia Slight; Lymphocytes # (A) 0.3 k/uL (1.0-4.8); Lymphocytes % (A) 3 %; MCH 32.5 pg (25.0-35.0); MCHC 31.7 g/dL (31.0-37.0); MCV 102.5 fL (80.0-100.0); Macrocytosis Slight; Mean Platelet Volume 7.6; Monocytes # (A) 0.4 k/uL (0-1.0); Monocytes % (A) 4 %; Neutrophils # (A) 8.2 k/uL (1.3-7.7); Neutrophils % (A) 92 %; Platelet Count 212 k/uL (150-450); RBC 3.17 m/uL (4.30-5.90); WBC 8.9 k/uL (3.8-10.6)
[2022-05-25 09:16] LABS: African American GFR (CKD) >90 (>60 ml/min/1.73 sqM); Anion Gap 10 mmol/L; Blood Urea Nitrogen 31 mg/dL (9-20); Carbon Dioxide 27 mmol/L (22-30); Chloride 102 mmol/L (98-107); Glucose 128 mg/dL (74-99); Non-African American GFR(CKD) >90 (>60 ml/min/1.73 sqM); Sodium 139 mmol/L (137-145)
[2022-05-25] MEDS: predniSONE 20 MG TAB PO SCH (10:51)
--- NOTE | 2022-05-25 11:30 | P.PN ---
Subjective Progress Note Date: 05/25/22 66-year-old male patient with severe COPD, on home oxygen at 3 L, who sees Dr. Bermudez in the pulmonary office, former smoker, history of CAD, hypertension, hyperlipidemia, osteoarthritis, psoriasis, gout, DVT, peripheral vascular disease with intervention. Patient's baseline FEV1 is 1.12 L or 34% of predi cted. He wears 3 L of oxygen on a regular basis. On 05/19/2022 patient came in to the emergency department for evaluation of increasing dyspnea over the past several weeks. This has especially worsened over the last 3 days. He denied any fever, no complaints of chest pain. No lower extremity pain or swelling. As of note patient is vaccinated against COVID-19. His chest x-ray showed no acute cardiopulmonary disease. Moderate COPD. Admission blood work showed normal white count of 10.1, hemoglobin of 11.0, weight in addition profile was within normal limits, potassium is 5.9, chloride was 111, CO2 is 20, BUN is 37 and creatinine is 1.3. Troponin was less than 0.0121, proBNP was 855. EKG showed sinus rhythm with ST segment depression in the inferior leads, no ST segment elevation with a nonspecific intraventricular conduction delay. Patient was in moderate to severe respiratory distress she was placed on BiPAP for respiratory support, he was given bronchodilators, IV steroids, and subsequently his breathing has improved, patient was then switched to 3 L nasal cannula. He is breathing more comfortably though he still short of breath with any exertion and with conversation. On 05/21/2022 patient is in follow-up on selective care unit, patient still reports coughing, with phlegm production, sputum sample was sent for culture, Gram stain showed rare PMNs, few gram-positive cocci and few gram-negative bacilli, final cultures pending, patient is on azithromycin, IV Solu-Medrol, nebulized bronchodilators. He states he feels a little bit of improvement, however his not back to baseline, we'll continue with inpatient treatment on 05/22/2022 patient seen in follow-up on selective care unit, he is resting in bed, less bronchospastic and congested, patient remains on 3 L of oxygen pulse ox is 96-99%, he is afebrile, he is short of breath with any activity however se ems less congested. Today's labs have been reviewed, sodium is 147, potassium is 4.8, BUN is 30, creatinine 0.73.patient continues on IV Solu-Medrol. The patient is seen today 05/23/2022 in follow-up on the selective care unit. He is currently resting comfortably in bed. Awake and alert in no acute distress. Breathing better today compared to yesterday. Nearly back to his baseline. he is maintaining good O2 saturations in the 90s on 3 L/m per nasal cannula. Afebrile. Hemodynamically stable. Sputum culture revealed no growth. Blood glucose 219. He is continued on DuoNeb inhalations, IV Solu-Medrol. 05/24/2022, the patient is doing well. No significant shortness of breath or chest pain. Solu-Medrol will be gradually weaned down and the patient is currently on 40 mg of IV Solu Medrol to every 8 hours. No other new complaints for now and the labs are all stable. 05/25/2022, the patient is feeling better and the patient shows ongoing and steady improvement in his COPD exacerbation. He remains on IV Solu-Medrol. He is using the BiPAP on and off. He is using also asked him by nasal cannula. No chest pain. Shortness of breath is also improving. Objective - Vital Signs Vital signs: Vital Signs Temp 98.2 F 05/25/22 04:01 Pulse 69 05/25/22 08:58 Resp 20 05/25/22 04:01 BP 167/77 05/25/22 08:58 Pulse Ox 98 05/25/22 08:58 FiO2 50 05/23/22 08:00 Intake & Output 05/24/22 05/25/22 05/25/22 18:59 06:59 18:59 Intake Total 480 240 240 Output Total 300 1750 450 Balance 180 -1510 -210 Intake: Intake, IV Titration 0 Amount Sodium Chloride 0.9% 1, 0 000 ml @ 50 mls/hr IV . Q20H [facility] Rx#:[id number] Oral 480 240 240 Output: Urine 300 1750 450 Other: Voiding Method Indwelling Catheter Indwelling Catheter # Voids 1 - Exam GENERAL EXAM: Alert, pleasant 66-year-old male gentleman, on 3 L nasal cannula, comfortable in no apparent distress. HEAD: Normocephalic. EYES: Normal reaction of pupils, equal size. NOSE: Clear with pink turbinates. THROAT: No erythema or exudates. NECK: No masses, no JVD. CHEST: No chest wall deformity. LUNGS: Equal air entry with end expiratory wheeze, few scattered rhonchi, diminished. CVS: S1 and S2 normal with no audible murmur, regular rhythm. ABDOMEN: No hepatosplenomegaly, normal bowel sounds, no guarding or rigidity. SPINE: No scoliosis or deformity SKIN: No rashes CENTRAL NERVOUS SYSTEM: No focal deficits, tone is normal in all 4 extremities. EXTREMITIES: There is no peripheral edema. No clubbing, no cyanosis. Peripheral pulses are intact. - Labs CBC & Chem 7: 05/25/22 08:01 05/25/22 08:01 Labs: Abnormal Lab Results - Last 24 Hours (Table) 05/24/22 05/24/22 05/24/22 Range/Units 12:03 17:03 19:30 RBC (4.30-5.90) m/uL Hgb (13.0-17.5) gm/dL Hct (39.0-53.0) % MCV (80.0-100.0) fL Neutrophils # (1.3-7.7) k/uL Lymphocytes # (1.0-4.8) k/uL BUN (9-20) mg/dL Creatinine (0.66-1.25) mg/dL Glucose (74-99) mg/dL POC Glucose (mg/dL) 133 H 164 H 176 H (70-110) mg/dL Calcium (8.4-10.2) mg/dL 05/25/22 05/25/22 05/25/22 Range/Units 06:16 08:01 08:01 RBC 3.17 L (4.30-5.90) m/uL Hgb 10.3 L (13.0-17.5) gm/dL Hct 32.5 L (39.0-53.0) % MCV 102.5 H (80.0-100.0) fL Neutrophils # 8.2 H (1.3-7.7) k/uL Lymphocytes # 0.3 L (1.0-4.8) k/uL BUN 31 H (9-20) mg/dL Creatinine 0.62 L (0.66-1.25) mg/dL Glucose 128 H (74-99) mg/dL POC Glucose (mg/dL) 132 H (70-110) mg/dL Calcium 8.0 L (8.4-10.2) mg/dL Assessment and Plan Plan: Assessment: #1. Acute exacerbation of COPD, requiring BiPAP support. Chest x-ray showing no acute cardiopulmonary disease, improving #2. History of advanced COPD with baseline FEV1 of 1.12 L or 34% of predicted on home oxygen at 3 L/m #3. Extensive history of smoking, currently in remission, patient carries 50 years of smoking, of 1 to 2 packs a day #4. History of rheumatoid arthritis #5. Psoriasis #6. Hypertension #7. Hyperlipidemia #8. CAD with previous stenting #9. Peripheral vascular disease with history of intervention, previous stenting of bilateral iliacs in 2012 #10. Previous history of MRSA infection #11. Chronic ulceration of the left foot Plan: Continue same treatment Discontinued IV Solu-Medrol Start the patient prednisone burst taper starting with 40 mg Continue bronchodilators Continue to follow
[2022-05-25 12:26] LABS: Glucose,Whole Blood 151 mg/dL (70-110)
[2022-05-25 17:14] LABS: Glucose,Whole Blood 121 mg/dL (70-110)
[2022-05-25 21:00] LABS: Glucose,Whole Blood 166 mg/dL (70-110)
[2022-05-25] MEDS: DONEPEZIL 5 MG TAB PO SCH (22:29)
[2022-05-25] MEDS: ATORVASTATIN 80 MG TAB PO SCH (22:29)
[2022-05-25] MEDS: hydrOXYzine HCL 25 MG TAB PO SCH (22:29)
[2022-05-25] MEDS: ALPRAZolam 0.5 MG TAB PO PRN (22:37)
--- NOTE | 2022-05-26 02:43 | P.PN ---
Subjective Progress Note Date: 05/24/22 Patient is a 66-year-old white male admitted for acute exacerbation of COPD. 05/24/2021 Patient is currently sitting on the side of the road. No complaints of chest pain. Breathing status is improving slowly. Still having bilateral diffuse rhonchi and wheezing present. Patient is on BiPAP as needed. Currently being current on Solu-Medrol 40 mg every 8 hourly. Also on duo nebs and oxygen supplementation at 3 L via nasal cannula. No nausea vomiting or abdominal pain or diarrhea. Tolerating oral diet. Pulmonary is on board. Current medications reviewed. Objective - Vital Signs Vital signs: Vital Signs Temp 98.0 F 05/24/22 11:24 Pulse 84 05/24/22 11:32 Resp 20 05/24/22 11:24 BP 148/68 05/24/22 11:24 Pulse Ox 98 05/24/22 11:24 FiO2 50 05/23/22 08:00 Intake & Output 05/23/22 05/24/22 05/24/22 18:59 06:59 18:59 Intake Total 1760 200 240 Output Total 450 700 Balance 1310 -500 240 Weight 65.771 kg Intake: Intake, IV Titration 400 200 Amount Sodium Chloride 0.9% 1, 400 200 000 ml @ 50 mls/hr IV . Q20H [facility] Rx#:[id number] Oral 1360 240 Output: Urine 450 700 Other: Voiding Method Urinal Urinal # Voids 1 - Exam PHYSICAL EXAMINATION: Patient is lying in the bed comfortably, no acute distress, awake alert and oriented.. HEENT: Normocephalic. Neck is supple. Pupils reactive. Nostrils clear. Oral cavity is moist. Neck reveals no JVD, carotid bruits, or thyromegaly. CHEST EXAMINATION: Trachea is central. Symmetrical expansion. Bilateral diffuse wheezing and rales and rhonchi. CARDIAC: Normal S1, S2 with no gallops. No murmurs ABDOMEN: Soft. Bowel sounds present. Nontender. No organomegaly. No abdominal bruits. Extremities: reveal no edema. No clubbing or cyanosis Neurologically awake, alert, oriented x3 with well-coordinated movements. No focal deficits noted Skin: No rash or skin lesions. Psychiatric: Coperative. Nonsuicidal, Musculoskeletal: No joint swelling or deformity. Normal range of motion. - Labs CBC & Chem 7: 05/25/22 08:01 05/25/22 08:01 Labs: Abnormal Lab Results - Last 24 Hours (Table) 05/23/22 05/23/22 05/24/22 Range/Units 16:39 21:10 06:24 POC Glucose (mg/dL) 171 H 140 H 172 H (70-110) mg/dL 05/24/22 Range/Units 12:03 POC Glucose (mg/dL) 133 H (70-110) mg/dL Assessment and Plan Assessment: Shortness of breath secondary to COPD exacerbation. Requiring BiPAP. Advancing COPD Extensive history of smoking History of rheumatoid arthritis Psoriasis Hypertension Hyperlipidemia Coronary artery disease history of stent placement Peripheral vascular disease with history of stenting of bilateral iliac arteries in 2012 Chronic ulceration of the left leg DVT prophylaxis Plan: Patient will be continued on IV Solu-Medrol and oxygen for mentation and duo nebs. Continue with home medications. Pulmonary is on board. GI and DVT prophylaxis. Follow-up closely. Time with Patient: Greater than 30
--- NOTE | 2022-05-26 02:45 | P.PN ---
Subjective Progress Note Date: 05/25/22 Patient is a 66-year-old white male admitted for acute exacerbation of COPD. 05/24/2021 Patient is currently sitting on the side of the road. No complaints of chest pain. Breathing status is improving slowly. Still having bilateral diffuse rhonchi and wheezing present. Patient is on BiPAP as needed. Currently being current on Solu-Medrol 40 mg every 8 hourly. Also on duo nebs and oxygen supplementation at 3 L via nasal cannula. No nausea vomiting or abdominal pain or diarrhea. Tolerating oral diet. Pulmonary is on board. 05/25/2022 Patient is sitting on the side of the bed. Awake alert and oriented x3. Currently requiring 3 L oxygen via nasal cannula. Patient did not require BiPAP last night. Currently on IV Solu-Medrol changed to prednisone today. Denied any complaints of chest pain. No nausea vomiting abdominal pain or diarrhea. No cough or sputum production. Current medications reviewed. Objective - Vital Signs Vital signs: Vital Signs Temp 97.4 F L 05/25/22 22:32 Pulse 84 05/25/22 22:32 Resp 22 05/25/22 22:32 BP 174/74 05/25/22 22:32 Pulse Ox 98 05/25/22 22:32 FiO2 50 05/23/22 08:00 Intake & Output 05/25/22 05/25/22 05/26/22 06:59 18:59 06:59 Intake Total 240 480 Output Total 1750 875 Balance -0173 -349 Intake: Intake, IV Titration 0 Amount Sodium Chloride 0.9% 1, 0 000 ml @ 50 mls/hr IV . Q20H [facility] Rx#:[id number] Oral 240 480 Output: Urine 1750 875 Other: Voiding Method Indwelling Catheter Indwelling Catheter # Bowel Movements 0 - Exam PHYSICAL EXAMINATION: Patient is lying in the bed comfortably, no acute distress, awake alert and oriented.. HEENT: Normocephalic. Neck is supple. Pupils reactive. Nostrils clear. Oral cavity is moist. Neck reveals no JVD, carotid bruits, or thyromegaly. CHEST EXAMINATION: Trachea is central. Symmetrical expansion. Bilateral diffuse wheezing and no rales or rhonchi. CARDIAC: Normal S1, S2 with no gallops. No murmurs ABDOMEN: Soft. Bowel sounds present. Nontender. No organomegaly. No abdominal bruits. Extremities: reveal no edema. No clubbing or cyanosis Neurologically awake, alert, oriented x3 with well-coordinated movements. No focal deficits noted Skin: No rash or skin lesions. Psychiatric: Coperative. Nonsuicidal, Musculoskeletal: No joint swelling or deformity. Normal range of motion. - Labs CBC & Chem 7: 05/25/22 08:01 05/25/22 08:01 Labs: Abnormal Lab Results - Last 24 Hours (Table) 05/25/22 05/25/22 05/25/22 Range/Units 06:16 08:01 08:01 RBC 3.17 L (4.30-5.90) m/uL Hgb 10.3 L (13.0-17.5) gm/dL Hct 32.5 L (39.0-53.0) % MCV 102.5 H (80.0-100.0) fL Neutrophils # 8.2 H (1.3-7.7) k/uL Lymphocytes # 0.3 L (1.0-4.8) k/uL BUN 31 H (9-20) mg/dL Creatinine 0.62 L (0.66-1.25) mg/dL Glucose 128 H (74-99) mg/dL POC Glucose (mg/dL) 132 H (70-110) mg/dL Calcium 8.0 L (8.4-10.2) mg/dL 05/25/22 05/25/22 05/25/22 Range/Units 12:24 17:03 20:58 RBC (4.30-5.90) m/uL Hgb (13.0-17.5) gm/dL Hct (39.0-53.0) % MCV (80.0-100.0) fL Neutrophils # (1.3-7.7) k/uL Lymphocytes # (1.0-4.8) k/uL BUN (9-20) mg/dL Creatinine (0.66-1.25) mg/dL Glucose (74-99) mg/dL POC Glucose (mg/dL) 151 H 121 H 166 H (70-110) mg/dL Calcium (8.4-10.2) mg/dL Assessment and Plan Assessment: Shortness of breath secondary to COPD exacerbation. off BiPAP. Advancing COPD Extensive history of smoking History of rheumatoid arthritis Psoriasis Hypertension Hyperlipidemia Coronary artery disease history of stent placement Peripheral vascular disease with history of stenting of bilateral iliac arteries in 2013 Chronic ulceration of the left leg DVT prophylaxis Plan: Patient will be continued on IV Solu-Medrol ---> Prednisone and oxygen for supplimentaion and duo nebs. Continue with home medications. Pulmonary is on board. GI and DVT prophylaxis. Follow-up closely.
[2022-05-26 06:25] LABS: Glucose,Whole Blood 126 mg/dL (70-110)
[2022-05-26] MEDS: INSULIN ASPART (NovoLOG) 100 UNIT/ML VIAL SQ SCH ×3 (06:40→17:05)
[2022-05-26 07:00] LABS: African American GFR (CKD) >90 (>60 ml/min/1.73 sqM); Anion Gap 4 mmol/L; Blood Urea Nitrogen 31 mg/dL (9-20); Calcium 7.3 mg/dL (8.4-10.2); Carbon Dioxide 30 mmol/L (22-30); Chloride 101 mmol/L (98-107); Glucose 119 mg/dL (74-99); Non-African American GFR(CKD) >90 (>60 ml/min/1.73 sqM); Potassium 4.5 mmol/L (3.5-5.1); Sodium 135 mmol/L (137-145)
[2022-05-26] MEDS: IPRATROPIUM-ALBUTEROL 3 ML NEB INHALATION SCH ×3 (08:00→15:25)
[2022-05-26] MEDS: traMADol 50 MG TAB PO SCH (08:58)
[2022-05-26] MEDS: CITALOPRAM HYDROBROMIDE 20 MG TAB PO SCH (08:58)
[2022-05-26] MEDS: GABAPENTIN 300 MG CAP PO SCH ×2 (08:58→17:08)
[2022-05-26] MEDS: FAMOTIDINE 20 MG TAB PO SCH (08:58)
[2022-05-26] MEDS: TAMSULOSIN 0.4 MG CAP.ER.24H PO SCH (08:58)
[2022-05-26] MEDS: FERROUS SULFATE 325 MG TAB PO SCH (08:58)
[2022-05-26] MEDS: METOPROLOL SUCCINATE (ER) 25 MG TAB.ER.24H PO SCH (08:59)
[2022-05-26] MEDS: predniSONE 20 MG TAB PO SCH (08:59)
[2022-05-26 09:26] VITALS: RESP 20
[2022-05-26 12:16] LABS: Glucose,Whole Blood 121 mg/dL (70-110)
--- NOTE | 2022-05-26 14:09 | P.PN ---
Subjective Progress Note Date: 05/26/22 66-year-old male patient with severe COPD, on home oxygen at 3 L, who sees Dr. Bermudez in the pulmonary office, former smoker, history of CAD, hypertension, hyperlipidemia, osteoarthritis, psoriasis, gout, DVT, peripheral vascular disease with intervention. Patient's baseline FEV1 is 1.12 L or 34% of predi cted. He wears 3 L of oxygen on a regular basis. On 05/19/2022 patient came in to the emergency department for evaluation of increasing dyspnea over the past several weeks. This has especially worsened over the last 3 days. He denied any fever, no complaints of chest pain. No lower extremity pain or swelling. As of note patient is vaccinated against COVID-19. His chest x-ray showed no acute cardiopulmonary disease. Moderate COPD. Admission blood work showed normal white count of 10.1, hemoglobin of 11.0, weight in addition profile was within normal limits, potassium is 5.9, chloride was 111, CO2 is 20, BUN is 37 and creatinine is 1.3. Troponin was less than 0.0121, proBNP was 855. EKG showed sinus rhythm with ST segment depression in the inferior leads, no ST segment elevation with a nonspecific intraventricular conduction delay. Patient was in moderate to severe respiratory distress she was placed on BiPAP for respiratory support, he was given bronchodilators, IV steroids, and subsequently his breathing has improved, patient was then switched to 3 L nasal cannula. He is breathing more comfortably though he still short of breath with any exertion and with conversation. On 05/21/2022 patient is in follow-up on selective care unit, patient still reports coughing, with phlegm production, sputum sample was sent for culture, Gram stain showed rare PMNs, few gram-positive cocci and few gram-negative bacilli, final cultures pending, patient is on azithromycin, IV Solu-Medrol, nebulized bronchodilators. He states he feels a little bit of improvement, however his not back to baseline, we'll continue with inpatient treatment on 05/22/2022 patient seen in follow-up on selective care unit, he is resting in bed, less bronchospastic and congested, patient remains on 3 L of oxygen pulse ox is 96-99%, he is afebrile, he is short of breath with any activity however se ems less congested. Today's labs have been reviewed, sodium is 147, potassium is 4.8, BUN is 30, creatinine 0.73.patient continues on IV Solu-Medrol. The patient is seen today 05/23/2022 in follow-up on the selective care unit. He is currently resting comfortably in bed. Awake and alert in no acute distress. Breathing better today compared to yesterday. Nearly back to his baseline. he is maintaining good O2 saturations in the 90s on 3 L/m per nasal cannula. Afebrile. Hemodynamically stable. Sputum culture revealed no growth. Blood glucose 219. He is continued on DuoNeb inhalations, IV Solu-Medrol. 05/24/2022, the patient is doing well. No significant shortness of breath or chest pain. Solu-Medrol will be gradually weaned down and the patient is currently on 40 mg of IV Solu Medrol to every 8 hours. No other new complaints for now and the labs are all stable. 05/25/2022, the patient is feeling better and the patient shows ongoing and steady improvement in his COPD exacerbation. He remains on IV Solu-Medrol. He is using the BiPAP on and off. He is using also asked him by nasal cannula. No chest pain. Shortness of breath is also improving. The patient is seen today 05/26/2022 in follow-up on the regular medical floor. He is currently up ambulating in his room. Awake and alert in no acute distress. Feeling back to his baseline. No worsening shortness of breath, cough or congestion. He is maintaining good O2 saturations in the upper 90s on 3 L/m per nasal cannula. Afebrile. Hemodynamically stable. Sputum culture revealed no growth. White count 135. Potassium 4.5. BUN 31. Creatinine 0.68. Glucose 119. He is continued on DuoNeb inhalations, prednisone taper. Objective - Vital Signs Vital signs: Vital Signs Temp 97.9 F 05/26/22 12:00 Pulse 78 05/26/22 12:00 Resp 20 05/26/22 12:00 BP 158/85 05/26/22 12:00 Pulse Ox 98 05/26/22 12:00 FiO2 50 05/23/22 08:00 Intake & Output 05/25/22 05/26/22 05/26/22 18:59 06:59 18:59 Intake Total 480 240 360 Output Total 875 Balance -395 240 360 Intake: Oral 480 240 360 Output: Urine 875 Other: Voiding Method Indwelling Catheter Indwelling Catheter Indwelling Catheter # Bowel Movements 0 - Exam GENERAL EXAM: Alert, pleasant 66-year-old male gentleman, on 3 L nasal cannula, comfortable in no apparent distress. HEAD: Normocephalic. EYES: Normal reaction of pupils, equal size. NOSE: Clear with pink turbinates. THROAT: No erythema or exudates. NECK: No masses, no JVD. CHEST: No chest wall deformity. LUNGS: Equal air entry with end expiratory wheeze, diminished. CVS: S1 and S2 normal with no audible murmur, regular rhythm. ABDOMEN: No hepatosplenomegaly, normal bowel sounds, no guarding or rigidity. SPINE: No scoliosis or deformity SKIN: No rashes CENTRAL NERVOUS SYSTEM: No focal deficits, tone is normal in all 4 extremities. EXTREMITIES: There is no peripheral edema. No clubbing, no cyanosis. Peripheral pulses are intact. - Labs CBC & Chem 7: 05/25/22 08:01 05/26/22 06:19 Labs: Abnormal Lab Results - Last 24 Hours (Table) 05/25/22 05/25/22 05/26/22 Range/Units 17:03 20:58 06:19 Sodium 135 L (137-145) mmol/L BUN 31 H (9-20) mg/dL Glucose 119 H (74-99) mg/dL POC Glucose (mg/dL) 121 H 166 H (70-110) mg/dL Calcium 7.3 L (8.4-10.2) mg/dL 05/26/22 05/26/22 Range/Units 06:22 12:12 Sodium (137-145) mmol/L BUN (9-20) mg/dL Glucose (74-99) mg/dL POC Glucose (mg/dL) 126 H 121 H (70-110) mg/dL Calcium (8.4-10.2) mg/dL Assessment and Plan Assessment: Acute exacerbation of COPD, requiring BiPAP support. Chest x-ray showing no acute cardiopulmonary disease improved and on 3 L nasal cannula History of advanced COPD with baseline FEV1 of 1.12 L or 34% of predicted on home oxygen at 3 L/m Extensive history of smoking, currently in remission, patient carries 50 years of smoking, of 1 to 2 packs a day History of rheumatoid arthritis Psoriasis Hypertension Hyperlipidemia CAD with previous stenting Peripheral vascular disease with history of intervention, previous stenting of bilateral iliacs in 2013 Previous history of MRSA infection Chronic ulceration of the left foot Plan: The patient was seen and evaluated Feeling back to his baseline Stable for discharge from the pulmonary standpoint Complete a prednisone taper Continue his home pulmonary medications Follow-up in the office in 1-2 weeks' I have personally seen and examined the patient, performed the documentation and the assessment and plan as written. Number of minutes spent on the visit: 10.
[2022-05-26 16:49] VITALS: BP 115/68; PULSE 80; TEMP 97.1
[2022-05-26 16:50] LABS: Glucose,Whole Blood 135 mg/dL (70-110)
[2022-05-26] MEDS: ACETAMINOPHEN TAB 325 MG TAB PO PRN (18:28)
== END 2022-05-26 19:24 | disposition home or self-care (01) | DRG 190 ==
LOC: EC 16:24 → 3SCARD 19:23
PROVIDERS: ADMIT Family Medicine; ATTEND Family Medicine
PROC: 5A09457 Assistance with Respiratory Ventilation, 24-96 Consecutive Hours, Continuous Positive Airway Pressure (ICD-10-PCS; principal; 2022-05-19)
DX: J44.1 Chronic obstructive pulmonary disease with (acute) exacerbation (principal); J96.21 Acute and chronic respiratory failure with hypoxia; E44.0 Moderate protein-calorie malnutrition; R64 Cachexia; N17.9 Acute kidney failure, unspecified; I42.9 Cardiomyopathy, unspecified; M87.9 Osteonecrosis, unspecified; I50.22 Chronic systolic (congestive) heart failure; L97.529 Non-pressure chronic ulcer of other part of left foot with unspecified severity; L40.50 Arthropathic psoriasis, unspecified; I11.0 Hypertensive heart disease with heart failure; M06.9 Rheumatoid arthritis, unspecified; I73.9 Peripheral vascular disease, unspecified; M89.751 Major osseous defect, right pelvic region and thigh; E86.0 Dehydration; E78.5 Hyperlipidemia, unspecified; I25.10 Atherosclerotic heart disease of native coronary artery without angina pectoris; K21.00 Gastro-esophageal reflux disease with esophagitis, without bleeding; K44.9 Diaphragmatic hernia without obstruction or gangrene; E87.6 Hypokalemia; M19.90 Unspecified osteoarthritis, unspecified site; R13.10 Dysphagia, unspecified; Z68.21 Body mass index [BMI] 21.0-21.9, adult; M10.9 Gout, unspecified; G89.29 Other chronic pain; Z99.81 Dependence on supplemental oxygen; Z79.82 Long term (current) use of aspirin; Z79.899 Other long term (current) drug therapy; Z87.891 Personal history of nicotine dependence; Z86.718 Personal history of other venous thrombosis and embolism; Z96.642 Presence of left artificial hip joint; Z86.14 Personal history of Methicillin resistant Staphylococcus aureus infection; Z95.5 Presence of coronary angioplasty implant and graft; Z95.820 Peripheral vascular angioplasty status with implants and grafts; Z98.1 Arthrodesis status; Z71.3 Dietary counseling and surveillance
CPT/HCPCS: 36415; 71045; 80048; 80053; 83605; 83735; 83880; 84132; 84484; 85025; 85027; 85610; 85730; 87070; 87205; 93005; 94640; 94660; 94760; 96361; 96365; 96375; 99291

== ENCOUNTER 2022-07-11 09:41 | Observation (INO) | payer MEDICARE ==
[2022-07-11] MEDS ORDERED: IPRATROPIUM-ALBUTEROL 3 ML NEB INHALATION STA ×3 (10:09→14:31)
[2022-07-11] MEDS ORDERED: SODIUM CHLORIDE 0.9% 1,000 ML IV STA (10:09)
--- NOTE | 2022-07-11 10:55 | XR ---
EXAMINATION TYPE: XR chest 2V DATE OF EXAM: 07/11/2022 COMPARISON: Chest x-ray 05/19/2022 HISTORY: Difficulty breathing TECHNIQUE: Frontal and lateral views of the chest are obtained. FINDINGS: There is no focal air space opacity, pleural effusion, or pneumothorax seen. The cardiac silhouette size is within normal limits. Elevation of the left hemidiaphragm is again noted, and has a lateralized appearance. There are overlying leads. There are coronary artery calcifications and walter nt. Prominent lung volumes suggest underlying COPD. The osseous structures are intact. IMPRESSION: No acute cardiopulmonary process. Emphysema
[2022-07-11 11:06] LABS: Basophils % (A) 0 %; Eosinophils # (A) 0.1 k/uL (0-0.7); Eosinophils % (A) 2 %; HCT 27.5 % (39.0-53.0); HGB 8.9 gm/dL (13.0-17.5); Hypochromasia Slight; Lymphocytes # (A) 0.4 k/uL (1.0-4.8); Lymphocytes % (A) 6 %; MCH 32.5 pg (25.0-35.0); MCHC 32.2 g/dL (31.0-37.0); MCV 100.9 fL (80.0-100.0); Macrocytosis Slight; Mean Platelet Volume 8.1; Monocytes # (A) 0.4 k/uL (0-1.0); Monocytes % (A) 6 %; Neutrophils # (A) 5.5 k/uL (1.3-7.7); Neutrophils % (A) 83 %; Platelet Count 168 k/uL (150-450); RBC 2.73 m/uL (4.30-5.90); RDW 14.8 % (11.5-15.5); WBC 6.6 k/uL (3.8-10.6)
--- NOTE | 2022-07-11 11:12 | ED ---
SOB HPI - General Chief Complaint: Shortness of Breath Stated Complaint: AMS Time Seen by Provider: 07/11/22 10:04 Source: EMS Mode of arrival: EMS Limitations: no limitations - History of Present Illness Initial Comments: Patient is a 66 -year-old male with a past medical history of coronary artery disease, heart failure, hyperlipidemia, hypertension, DVT, COPD presented to the emergency department with a chief complaint of weakness and shortness of breath. Patient states symptoms started approximately one week ago and have gotten worse. Patient feels short of breath at rest. He denies fever, chills, cough, chest pain, palpitations. Patient wears supplemental oxygen at home, 2 L nasal cannula. He denies recent sick contacts. Denies abdominal pain, nausea, vomiting, burning with urination. - Related Data Home Medications Medication Instructions Recorded Confirmed Gabapentin [Neurontin] 300 mg PO TID 05/17/19 07/11/22 Ipratropium-Albuterol Nebulize 3 ml INHALATION RT-QID 06/18/19 07/11/22 [Duoneb 0.5 mg-3 mg/3 ml Soln] Albuterol Sulfate [Proair Hfa] 2 puff INHALATION RT-Q4H PRN 07/30/19 07/11/22 Ferrous Sulfate [Iron] 325 mg PO DAILY 09/12/19 07/11/22 Donepezil [Aricept] 5 mg PO HS 11/03/19 07/11/22 allopurinoL [Zyloprim] 300 mg PO DAILY 11/03/19 07/11/22 Aspirin [Adult Low Dose Aspirin EC] 81 mg PO DAILY 05/21/20 07/11/22 Citalopram Hydrobromide [CeleXA] 20 mg PO DAILY 05/21/20 07/11/22 Guselkumab [Tremfya] 100 mg SQ Q56D 05/21/20 07/11/22 Atorvastatin Calcium [Lipitor] 80 mg PO HS 04/02/21 07/11/22 Famotidine [Pepcid] 20 mg PO DAILY 04/02/21 07/11/22 Metoprolol Succinate [Toprol XL] 25 mg PO DAILY 04/02/21 07/11/22 Furosemide [Lasix] 20 mg PO DAILY 05/19/22 07/11/22 Sildenafil Citrate 100 mg PO DAILY PRN 05/19/22 07/11/22 hydrOXYzine HCL [Atarax] 25 mg PO HS 05/19/22 07/11/22 lisinopriL [Zestril] 10 mg PO DAILY 05/19/22 07/11/22 traMADol HCL [Ultram ER] 100 mg PO BID PRN 05/19/22 07/11/22 Acetaminophen Tab [Tylenol] 650 mg PO Q4HR PRN 07/11/22 07/11/22 Previous Rx's Medication Instructions Recorded Tamsulosin [Flomax] 0.4 mg PO DAILY cap 05/26/22 Allergies Allergy/AdvReac Type Severity Reaction Status Date / Time No Known Allergies Allergy Verified 07/11/22 13:59 Review of Systems ROS Statement: Those systems with pertinent positive or pertinent negative responses have been documented in the HPI. ROS Other: All systems not noted in ROS Statement are negative. Past Medical History Past Medical History: Blood Disorder, Coronary Artery Disease (CAD), Heart Failure, COPD, Deep Vein Thrombosis (DVT), GERD/Reflux, Hyperlipidemia, Hypertension, Osteoarthritis (OA), Respiratory Disorder, Rheumatoid Arthritis (RA), Skin Disorder, Vascular Disorder Additional Past Medical History / Comment(s): Cardiomyopathy, home oxygen at 4L /NC ATC lately, slightly elevated L diaphragm, multiple dislocations of left total hip, psoriasis, gout, hx of DVT both legs, chronic pain/lowervback and bilateral hip pain, current chronic small open left ankle wound now healed, past pancytopenia/febrile neutropenia/fever thought possibly d/t Humira, PAD, gout, chronic anemia, occasional dysphagia, severe protein calorie malnutrition, small bowel ileus, nephrolithiasis, chronic R hip avascular necresis, recent R shoulder pain, . History of Any Multi-Drug Resistant Organisms: MRSA Date of last positivie culture/infection: 06/09/17 MDRO Source:: Left Ankle Past Surgical History: Back Surgery, Heart Catheterization, Heart Catheterization With Stent, Hernia Repair, Joint Replacement, Orthopedic Surgery Additional Past Surgical History / Comment(s): Aortagrams with run-offs, bilateral leg atherectomies/stenting/PTBA, PCI with stents, lower back fusion/anuel, L ankle screw, L total hip arthroplasty/then removal and hardware inserted, Rebekah fundaplication, EGDs, colonoscopies. Past Anesthesia/Blood Transfusion Reactions: Previous Problems w/ Anesthesia Additional Past Anesthesia/Blood Transfusion Reaction / Comment(s): "HAS CONFUSION AND DISORIENTATION POST ANESTHESIA " on occasion. Date of Last Stent Placement:: 2018 [facility] Past Psychological History: No Psychological Hx Reported Smoking Status: Former smoker Past Alcohol Use History: None Reported Past Drug Use History: None Reported - Past Family History Mother Family Medical History: No Reported History Additional Family Medical History / Comment(s): Father History Unknown: Yes Family Medical History: Unable to Obtain General Exam Limitations: no limitations General appearance: alert, in no apparent distress Head exam: Present: atraumatic, normocephalic, normal inspection Eye exam: Present: normal appearance, PERRL, EOMI. Absent: scleral icterus, conjunctival injection, periorbital swelling Respiratory exam: Present: normal lung sounds bilaterally, wheezes, rhonchi. Absent: respiratory distress, rales, stridor Cardiovascular Exam: Present: regular rate, normal rhythm, normal heart sounds. Absent: systolic murmur, diastolic murmur, rubs, gallop, clicks GI/Abdominal exam: Present: soft, normal bowel sounds. Absent: distended, ten derness, guarding, rebound, rigid Extremities exam: Present: normal capillary refill. Absent: pedal edema Neurological exam: Present: alert, oriented X3, CN II-XII intact Psychiatric exam: Present: normal affect, normal mood Skin exam: Present: warm, dry, intact, normal color. Absent: rash Course Vital Signs 07/11/22 07/11/22 07/11/22 09:45 09:52 10:48 Temperature 97.9 F Pulse Rate 79 79 Respiratory 16 26 H 20 Rate Blood Pressure 135/71 136/61 O2 Sat by Pulse 100 95 Oximetry 07/11/22 07/11/22 07/11/22 10:53 11:05 13:48 Temperature Pulse Rate 74 75 74 Respiratory 20 Rate Blood Pressure 133/68 O2 Sat by Pulse 94 L Oximetry 07/11/22 07/11/22 14:03 14:14 Temperature Pulse Rate 74 79 Respiratory Rate Blood Pressure O2 Sat by Pulse Oximetry Medical Decision Making - Medical Decision Making This is a 66-year-old male presenting with shortness of breath and weakness. Patient to tachypneic on arrival without increased work of breathing. Significant rhonchi heard throughout with upper airway wheezing. Oxygen saturation 90% on room air. Patient has COPD. He was placed on 2 L nasal cannula which he uses at home. Laboratory studies obtained. Hemoglobin is low at 8.9, consistent with previous visits. There is no leukocytosis. Troponin is within normal limits. BNP is within normal limits. Urinalysis is not indicative of infection. Chest x-ray shows emphysema no acute process. Patient was given Solu-Medrol and prophylactic azithromycin. He was give 2 b reathing treatments in the emergency department which improved rhonchi however wheezing persistent. No hypoxia or respiratory distress. Case discussed with patient and his . Patient's does not feel comfortable with patient: Home. He will be admitted for weakness. Case discussed with Dr. Flores who accepts admission. Pulmonary on consult. Dr. Ramirez is my attending. - Lab Data Result diagrams: 07/11/22 10:20 07/11/22 11:35 Lab Results 07/11/22 07/11/22 07/11/22 Range/Units 10:20 10:20 10:20 WBC 6.6 (3.8-10.6) k/uL RBC 2.73 L (4.30-5.90) m/uL Hgb 8.9 L (13.0-17.5) gm/dL Hct 27.5 L (39.0-53.0) % MCV 100.9 H (80.0-100.0) fL MCH 32.5 (25.0-35.0) pg MCHC 32.2 (31.0-37.0) g/dL RDW 14.8 (11.5-15.5) % Plt Count 168 (150-450) k/uL MPV 8.1 Neutrophils % 83 % Lymphocytes % 6 % Monocytes % 6 % Eosinophils % 2 % Basophils % 0 % Neutrophils # 5.5 (1.3-7.7) k/uL Lymphocytes # 0.4 L (1.0-4.8) k/uL Monocytes # 0.4 (0-1.0) k/uL Eosinophils # 0.1 (0-0.7) k/uL Basophils # 0.0 (0-0.2) k/uL Hypochromasia Slight Macrocytosis Slight PT 9.7 (9.0-12.0) sec INR 0.9 (<1.2) APTT 24.9 (22.0-30.0) sec Sodium (137-145) mmol/L Potassium (3.5-5.1) mmol/L Chloride (98-107) mmol/L Carbon Dioxide (22-30) mmol/L Anion Gap mmol/L BUN (9-20) mg/dL Creatinine (0.66-1.25) mg/dL Est GFR (CKD-EPI)AfAm (>60 ml/min/1.73 sqM) Est GFR (CKD-EPI)NonAf (>60 ml/min/1.73 sqM) Glucose (74-99) mg/dL Plasma Lactic Acid Juan 1.4 (0.7-2.0) mmol/L Calcium (8.4-10.2) mg/dL Total Bilirubin (0.2-1.3) mg/dL AST (17-59) U/L ALT (4-49) U/L Alkaline Phosphatase (38-126) U/L Troponin I (0.000-0.034) ng/mL NT-Pro-B Natriuret Pep pg/mL Total Protein (6.3-8.2) g/dL Albumin (3.5-5.0) g/dL Urine Color Urine Appearance (Clear) Urine pH (5.0-8.0) Ur Specific Eden (1.001-1.035) Urine Protein (Negative) Urine Glucose (UA) (Negative) Urine Ketones (Negative) Urine Blood (Negative) Urine Nitrite (Negative) Urine Bilirubin (Negative) Urine Urobilinogen (<2.0) mg/dL Ur Leukocyte Esterase (Negative) Urine RBC (0-5) /hpf Urine WBC (0-5) /hpf Urine Mucus (None) /hpf 07/11/22 07/11/22 07/11/22 Range/Units 10:20 11:35 11:35 WBC (3.8-10.6) k/uL RBC (4.30-5.90) m/uL Hgb (13.0-17.5) gm/dL Hct (39.0-53.0) % MCV (80.0-100.0) fL MCH (25.0-35.0) pg MCHC (31.0-37.0) g/dL RDW (11.5-15.5) % Plt Count (150-450) k/uL MPV Neutrophils % % Lymphocytes % % Monocytes % % Eosinophils % % Basophils % % Neutrophils # (1.3-7.7) k/uL Lymphocytes # (1.0-4.8) k/uL Monocytes # (0-1.0) k/uL Eosinophils # (0-0.7) k/uL Basophils # (0-0.2) k/uL Hypochromasia Macrocytosis PT (9.0-12.0) sec INR (<1.2) APTT (22.0-30.0) sec Sodium 138 (137-145) mmol/L Potassium 5.7 H (3.5-5.1) mmol/L Chloride 107 (98-107) mmol/L Carbon Dioxide 21 L (22-30) mmol/L Anion Gap 10 mmol/L BUN 33 H (9-20) mg/dL Creatinine 1.20 (0.66-1.25) mg/dL Est GFR (CKD-EPI)AfAm 72 (>60 ml/min/1.73 sqM) Est GFR (CKD-EPI)NonAf 62 (>60 ml/min/1.73 sqM) Glucose 117 H (74-99) mg/dL Plasma Lactic Acid Juan (0.7-2.0) mmol/L Calcium 8.6 (8.4-10.2) mg/dL Total Bilirubin 0.3 (0.2-1.3) mg/dL AST 16 L (17-59) U/L ALT 13 (4-49) U/L Alkaline Phosphatase 94 (38-126) U/L Troponin I 0.016 (0.000-0.034) ng/mL NT-Pro-B Natriuret Pep 1250 pg/mL Total Protein 6.5 (6.3-8.2) g/dL Albumin 3.9 (3.5-5.0) g/dL Urine Color Urine Appearance (Clear) Urine pH (5.0-8.0) Ur Specific Eden (1.001-1.035) Urine Protein (Negative) Urine Glucose (UA) (Negative) Urine Ketones (Negative) Urine Blood (Negative) Urine Nitrite (Negative) Urine Bilirubin (Negative) Urine Urobilinogen (<2.0) mg/dL Ur Leukocyte Esterase (Negative) Urine RBC (0-5) /hpf Urine WBC (0-5) /hpf Urine Mucus (None) /hpf 07/11/22 Range/Units 12:15 WBC (3.8-10.6) k/uL RBC (4.30-5.90) m/uL Hgb (13.0-17.5) gm/dL Hct (39.0-53.0) % MCV (80.0-100.0) fL MCH (25.0-35.0) pg MCHC (31.0-37.0) g/dL RDW (11.5-15.5) % Plt Count (150-450) k/uL MPV Neutrophils % % Lymphocytes % % Monocytes % % Eosinophils % % Basophils % % Neutrophils # (1.3-7.7) k/uL Lymphocytes # (1.0-4.8) k/uL Monocytes # (0-1.0) k/uL Eosinophils # (0-0.7) k/uL Basophils # (0-0.2) k/uL Hypochromasia Macrocytosis PT (9.0-12.0) sec INR (<1.2) APTT (22.0-30.0) sec Sodium (137-145) mmol/L Potassium (3.5-5.1) mmol/L Chloride (98-107) mmol/L Carbon Dioxide (22-30) mmol/L Anion Gap mmol/L BUN (9-20) mg/dL Creatinine (0.66-1.25) mg/dL Est GFR (CKD-EPI)AfAm (>60 ml/min/1.73 sqM) Est GFR (CKD-EPI)NonAf (>60 ml/min/1.73 sqM) Glucose (74-99) mg/dL Plasma Lactic Acid Juan (0.7-2.0) mmol/L Calcium (8.4-10.2) mg/dL Total Bilirubin (0.2-1.3) mg/dL AST (17-59) U/L ALT (4-49) U/L Alkaline Phosphatase (38-126) U/L Troponin I (0.000-0.034) ng/mL NT-Pro-B Natriuret Pep pg/mL Total Protein (6.3-8.2) g/dL Albumin (3.5-5.0) g/dL Urine Color Yellow Urine Appearance Clear (Clear) Urine pH 5.0 (5.0-8.0) Ur Specific Eden 1.015 (1.001-1.035) Urine Protein Trace H (Negative) Urine Glucose (UA) Negative (Negative) Urine Ketones Negative (Negative) Urine Blood Negative (Negative) Urine Nitrite Negative (Negative) Urine Bilirubin Negative (Negative) Urine Urobilinogen <2.0 (<2.0) mg/dL Ur Leukocyte Esterase Trace H (Negative) Urine RBC <1 (0-5) /hpf Urine WBC 1 (0-5) /hpf Urine Mucus Rare H (None) /hpf Disposition Clinical Impression: Weakness, COPD exacerbation Disposition: ADMITTED IP TO THIS [facility] Condition: Good Referrals: David Woodson DO [Primary Care Provider] - 1-2 days Decision Time: 14:54
[2022-07-11 11:18] LABS: INR 0.9 (<1.2); Partial Thromboplastin Time 24.9 sec (22.0-30.0); Prothrombin Time 9.7 sec (9.0-12.0)
[2022-07-11] MEDS ORDERED: AZITHROMYCIN 500 MG in SODIUM CHLORIDE 0.9% 250 ML IVPB STA (11:30)
[2022-07-11] MEDS ORDERED: methylPREDNISolone SOD SUCCI 125 MG/2 ML VIAL IV STA (11:30)
[2022-07-11 12:08] LABS: Albumin 3.9 g/dL (3.5-5.0); Calcium 8.6 mg/dL (8.4-10.2); Potassium 5.7 mmol/L (3.5-5.1); Total Bilirubin 0.3 mg/dL (0.2-1.3); Total Protein 6.5 g/dL (6.3-8.2)
[2022-07-11 12:59] LABS: Appearance,Urine Clear (Clear); Bilirubin,Urine Negative (Negative); Blood,Urine Negative (Negative); Color,Urine Yellow; Glucose,Urine (UA) Negative (Negative); Ketones,Urine Negative (Negative); Leukocyte Esterase,Urine Trace (Negative); Mucus,Urine Rare /hpf; Nitrite,Urine Negative (Negative); Protein,Urine Trace (Negative); RBC,Urine <1 /hpf (0-5); Specific Gravity,Urine 1.015 (1.001-1.035); Urobilinogen,Urine <2.0 mg/dL (<2.0); WBC,Urine 1 /hpf (0-5)
[2022-07-11] MEDS ORDERED: ALBUTEROL HFA INHALER INHALATION PRN (17:58)
[2022-07-11] MEDS ORDERED: traMADol 50 MG TAB PO PRN (17:58)
[2022-07-11] MEDS ORDERED: NON FORMULARY DRUG (Sildenafil Citrate [Sildenafil Citrate] 100 MG Tablet) PO PRN (17:58)
[2022-07-11] MEDS: ALBUTEROL HFA INHALER INHALATION SCH (19:22)
[2022-07-11] MEDS: hydrOXYzine HCL 25 MG TAB PO SCH (20:05)
[2022-07-11] MEDS: GABAPENTIN 300 MG CAP PO SCH (20:05)
[2022-07-11] MEDS: DONEPEZIL 5 MG TAB PO SCH (20:05)
[2022-07-11] MEDS: ATORVASTATIN 80 MG TAB PO SCH (20:05)
[2022-07-11] MEDS ORDERED: IPRATROPIUM-ALBUTEROL 3 ML NEB INHALATION PRN (22:40)
[2022-07-11] MEDS: methylPREDNISolone SOD SUCCI 125 MG/2 ML VIAL IV SCH (23:33)
[2022-07-12] MEDS: methylPREDNISolone SOD SUCCI 125 MG/2 ML VIAL IV SCH ×4 (05:00→23:42)
[2022-07-12] MEDS: TIOTROPIUM 2.5 MCG INHALER INHALATION SCH (08:13)
[2022-07-12] MEDS: ALBUTEROL HFA INHALER INHALATION SCH ×4 (08:13→20:20)
[2022-07-12] MEDS ORDERED: GUSELKUMAB 100 MG/ML SQ SCH (09:00)
[2022-07-12 09:01] LABS: Basophils # (A) 0 X 10*3/uL (0.00-0.10); Basophils % (A) 0 %; Eosinophils # (A) 0 X 10*3/uL (0.04-0.35); Eosinophils % (A) 0 %; HCT 26.5 % (39.6-50.0); HGB 8.2 g/dL (13.0-17.0); Immature Grans, Automated 0.6 %; Lymphocytes # (A) 0.31 X 10*3/uL (0.90-5.00); Lymphocytes % (A) 6.5 %; MCH 32.4 pg (27.0-32.0); MCHC 30.9 g/dL (32.0-37.0); MCV 104.7 fL (80.0-97.0); Mean Platelet Volume 10.4 fL (9.5-12.2); Monocytes # (A) 0.08 X 10*3/uL (0.20-1.00); Monocytes % (A) 1.7 %; NRBC Per 100 WBC 0 /100 WBCS (0.0-0.0); Neutrophils # (A) 4.37 X 10*3/uL (1.80-7.70); Neutrophils % (A) 91.2 %; Platelet Count 166 X 10*3/uL (140-440); RBC 2.53 X 10*6/uL (4.40-5.60); RDW 14.6 % (11.5-14.5); WBC 4.79 X 10*3/uL (4.50-10.00)
[2022-07-12] MEDS: METOPROLOL SUCCINATE (ER) 25 MG TAB.ER.24H PO SCH (09:25)
[2022-07-12] MEDS: FERROUS SULFATE 325 MG TAB PO SCH (09:26)
[2022-07-12] MEDS: lisinopriL 10 MG TAB PO SCH (09:26)
[2022-07-12] MEDS: TAMSULOSIN 0.4 MG CAP.ER.24H PO SCH (09:26)
[2022-07-12] MEDS: FAMOTIDINE 20 MG TAB PO SCH (09:26)
[2022-07-12] MEDS: FUROSEMIDE 20 MG TAB PO SCH (09:26)
[2022-07-12] MEDS: CITALOPRAM HYDROBROMIDE 20 MG TAB PO SCH (09:26)
[2022-07-12] MEDS: ASPIRIN 81 MG PO SCH (09:26)
[2022-07-12] MEDS: allopurinoL 300 MG TAB PO SCH (09:27)
[2022-07-12] MEDS: GABAPENTIN 300 MG CAP PO SCH ×3 (09:27→21:27)
[2022-07-12 09:56] LABS: African American GFR (CKD) 89.2 (60.0-200.0); Anion Gap 11.5 mmol/L (10.00-18.00); BUN/Creat Ratio 34.6 Ratio (12.00-20.00); Blood Urea Nitrogen 34.6 mg/dL (9.0-27.0); Calcium 8.9 mg/dL (8.7-10.3); Carbon Dioxide 20.5 mmol/L (20.0-27.5); Potassium 5.6 mmol/L (3.5-5.5)
--- NOTE | 2022-07-12 10:40 | P.CNPUL ---
History of Present Illness Consult date: 07/12/22 Requesting physician: Pepe Flores Reason for consult: COPD Chief complaint: Shortness breath, cough, congestion History of present illness: This a very pleasant 66-year-old male patient who has a 50 year smoking history however quit in December 2021, rheumatoid arthritis, cardiomyopathy, gastric esophageal reflux disease, gout, psoriasis, coronary disease with previous stent placement, peripheral vascular disease with previous PTB BONNIE/stenting, multiple orthopedic surgeries. He has a significant oxygen dependent chronic obstructive pulmonary disease with an FEV1 value 34% of predicted. He had been maintained on Trelegy and pro-air. He follows with Dr. Bermudez in our office for the same. He presented here to the emergency room yesterday with a 1 week history of weakness and shortness of breath. No fever or chills. No nausea vomiting or diarrhea. He states he is vaccinated and boosted against COVID-19. He did test positive here yesterday. Chest x-ray revealed no acute pulmonary process. There is evidence of emphysema. Elevation of left alek diaphragm which is chronic. White count 4.7. Hemoglobin 8.2. Platelets 166. Lymphocytes 0.3. Sodium 143. Potassium 5.6. BUN 35. Creatinine 1.0. Glucose 162. Vang virus by PCR positive. ProBNP 1250. Troponin negative 1. Review of Systems REVIEW OF SYSTEMS: CONSTITUTIONAL: Generalized fatigue and weakness. Denies any recent significant weight loss or weight gain. EYES: Denies change in vision. EARS, NOSE, MOUTH, THROAT: Denies headaches, denies sore throat. CARDIOVASCULAR: Denies chest pain, palpitations or syncopal episodes. RESPIRATORY: Positive for shortness of breath, cough, congestion no hemoptysis. GASTROINTESTINAL: Denies change in appetite, denies abdominal pain GENITOURINARY: Denies hematuria, denies infections. MUSKULOSKELETAL: Denies pain, denies swelling. INTEGUMENTARY: Denies rash, denies eczema. NEUROLOGICAL: Denies recent memory loss, no recent seizure activity. PSYCHIATRIC: Denies anxiety, denies depression. HEMATOLOGIC/LYMPHATIC: Denies anemia, denies enlarged lymph nodes. Past Medical History Past Medical History: Blood Disorder, Coronary Artery Disease (CAD), Heart Failure, COPD, Deep Vein Thrombosis (DVT), GERD/Reflux, Hyperlipidemia, Hypertension, Osteoarthritis (OA), Respiratory Disorder, Rheumatoid Arthritis (RA), Skin Disorder, Vascular Disorder Additional Past Medical History / Comment(s): Cardiomyopathy, home oxygen at 4L/[place] ATC lately, slightly elevated L diaphragm, multiple dislocations of left total hip, psoriasis, gout, hx of DVT both legs, chronic pain/lowervback and bilateral hip pain, current chronic small open left ankle wound now healed, past pancytopenia/febrile neutropenia/fever thought possibly d/t Humira, PAD, gout, chronic anemia, occasional dysphagia, severe protein calorie malnutrition, small bowel ileus, nephrolithiasis, chronic R hip avascular necresis, recent R shoulder pain, . History of Any Multi-Drug Resistant Organisms: MRSA Date of last positivie culture/infection: 06/09/17 MDRO Source:: Left Ankle Past Surgical History: Back Surgery, Heart Catheterization, Heart Catheterization With Stent, Hernia Repair, Joint Replacement, Orthopedic Surgery Additional Past Surgical History / Comment(s): Aortagrams with run-offs, bilateral leg atherectomies/stenting/PTBA, PCI with stents, lower back fusion/anuel, L ankle screw, L total hip arthroplasty/then removal and hardware inserted, Rebekah fundaplication, EGDs, colonoscopies. Past Anesthesia/Blood Transfusion Reactions: Previous Problems w/ Anesthesia Additional Past Anesthesia/Blood Transfusion Reaction / Comment(s): "HAS CONFUSION AND DISORIENTATION POST ANESTHESIA " on occasion. Date of Last Stent Placement:: 2018 [facility] Smoking Status: Never smoker - Past Family History Mother Family Medical History: No Reported History Additional Family Medical History / Comment(s): Father History Unknown: Yes Family Medical History: Unable to Obtain Medications and Allergies Home Medications Medication Instructions Recorded Confirmed Type Gabapentin [Neurontin] 300 mg PO TID 05/17/19 07/11/22 History Ipratropium-Albuterol Nebulize 3 ml INHALATION RT-QID 06/18/19 07/11/22 History [Duoneb 0.5 mg-3 mg/3 ml Soln] Albuterol Sulfate [Proair Hfa] 2 puff INHALATION RT-Q4H PRN 07/30/19 07/11/22 History Ferrous Sulfate [Iron] 325 mg PO DAILY 09/12/19 07/11/22 History Donepezil [Aricept] 5 mg PO HS 11/03/19 07/11/22 History allopurinoL [Zyloprim] 300 mg PO DAILY 11/03/19 07/11/22 History Aspirin [Adult Low Dose Aspirin EC] 81 mg PO DAILY 05/21/20 07/11/22 History Citalopram Hydrobromide [CeleXA] 20 mg PO DAILY 05/21/20 07/11/22 History Guselkumab [Tremfya] 100 mg SQ Q56D 05/21/20 07/11/22 History Atorvastatin Calcium [Lipitor] 80 mg PO HS 04/02/21 07/11/22 History Famotidine [Pepcid] 20 mg PO DAILY 04/02/21 07/11/22 History Metoprolol Succinate [Toprol XL] 25 mg PO DAILY 04/02/21 07/11/22 History Furosemide [Lasix] 20 mg PO DAILY 05/19/22 07/11/22 History Sildenafil Citrate 100 mg PO DAILY PRN 05/19/22 07/11/22 History hydrOXYzine HCL [Atarax] 25 mg PO HS 05/19/22 07/11/22 History lisinopriL [Zestril] 10 mg PO DAILY 05/19/22 07/11/22 History traMADol HCL [Ultram ER] 100 mg PO BID PRN 05/19/22 07/11/22 History Tamsulosin [Flomax] 0.4 mg PO DAILY cap 05/26/22 07/11/22 Rx Acetaminophen Tab [Tylenol] 650 mg PO Q4HR PRN 07/11/22 07/11/22 History Allergies Allergy/AdvReac Type Severity Reaction Status Date / Time No Known Allergies Allergy Verified 07/11/22 13:59 Physical Exam Vitals: Vital Signs Temp Pulse Pulse Resp BP BP BP 07/12/22 09:25 75 18 07/12/22 07:15 97.8 F 75 18 175/82 07/12/22 03:25 97.8 F 68 18 155/69 07/12/22 01:03 84 22 07/11/22 18:32 24 07/11/22 18:23 98.4 F 84 24 176/83 07/11/22 14:14 79 07/11/22 14:03 74 07/11/22 13:48 74 20 133/68 07/11/22 11:05 75 07/11/22 10:53 74 07/11/22 10:48 79 20 136/61 Pulse Ox 07/12/22 09:25 07/12/22 07:15 98 07/12/22 03:25 97 07/12/22 01:03 07/11/22 18:32 07/11/22 18:23 100 07/11/22 14:14 07/11/22 14:03 07/11/22 13:48 94 L 07/11/22 11:05 07/11/22 10:53 07/11/22 10:48 95 Intake and Output 07/11/22 07/12/22 07/12/22 22:59 06:59 14:59 Intake Total 500 180 Output Total 700 Balance 500 -520 Intake: Oral 500 180 Output: Urine 700 Other: Voiding Method Toilet Toilet # Voids 2 Weight 65.771 kg GENERAL EXAM: Alert, thin, 66-year-old male patient, on 2 L nasal cannula, comfortable in no apparent distress. HEAD: Normocephalic. EYES: Normal reaction of pupils, equal size. NOSE: Clear with pink turbinates. THROAT: No erythema or exudates. NECK: No masses, no JVD. CHEST: No chest wall deformity. LUNGS: Equal air entry with end expiratory wheeze, diminished. CVS: S1 and S2 normal with no audible murmur, regular rhythm. ABDOMEN: No hepatosplenomegaly, normal bowel sounds, no guarding or rigidity. SPINE: No scoliosis or deformity SKIN: No rashes CENTRAL NERVOUS SYSTEM: No focal deficits, tone is normal in all 4 extremities. EXTREMITIES: There is no peripheral edema. No clubbing, no cyanosis. Peripheral pulses are intact. Results - Laboratory Findings CBC and BMP: 07/12/22 02:59 07/12/22 02:59 PT/INR, D-dimer PT 9.7 sec (9.0-12.0) 07/11/22 10:20 INR 0.9 (<1.2) 07/11/22 10:20 Abnormal lab findings: Abnormal Labs 07/11/22 07/11/22 07/11/22 10:20 11:35 12:15 RBC 2.73 L Hgb 8.9 L Hct 27.5 L MCV 100.9 H MCH MCHC RDW Lymphocytes # 0.4 L Monocytes # Eosinophils # Potassium 5.7 H Chloride Carbon Dioxide 21 L BUN 33 H BUN/Creatinine Ratio Glucose 117 H AST 16 L Urine Protein Trace H Ur Leukocyte Esterase Trace H Urine Mucus Rare H Coronavirus (PCR) 07/11/22 07/12/22 07/12/22 15:09 02:59 02:59 RBC 2.53 L Hgb 8.2 L Hct 26.5 L MCV 104.7 H MCH 32.4 H MCHC 30.9 L RDW 14.6 H Lymphocytes # 0.31 L Monocytes # 0.08 L Eosinophils # 0 L Potassium 5.6 H Chloride 111 H Carbon Dioxide BUN 34.6 H BUN/Creatinine Ratio 34.60 H Glucose 162 H AST Urine Protein Ur Leukocyte Esterase Urine Mucus Coronavirus (PCR) Detected A - Diagnostic Findings Chest x-ray: image reviewed Assessment and Plan Assessment: Acute exacerbation of chronic obstructive pulmonary disease Oxygen dependent chronic obstructive pulmonary disease with FEV1 value 34% of predicted COVID-19 infection, incidental finding, vaccinated and boosted 2 Coronary artery disease with previous stent placement Peripheral vascular disease with his PT PA/stent placement 50 year smoking history however quit in December 2021 Hypertension Hyperlipidemia Rheumatoid arthritis Cardiomyopathy Multiple orthopedic surgeries Plan: The patient was seen and evaluated Chest x-ray, labs and medications reviewed Mainly that of a COPD exacerbation IV solu Medrol, Symbicort, Spiriva, albuterol Lovenox for DVT prophylaxis We will continue to follow and make further recommendations based on his clinica l status I have personally seen and examined the patient, performed the documentation and the assessment and plan as written. Number of minutes spent on the visit: 20.
[2022-07-12] MEDS ORDERED: ENOXAPARIN 30 MG/0.3 ML SYRINGE SQ SCH (10:45)
--- NOTE | 2022-07-12 10:52 | P.HPIM ---
History of Present Illness H&P Date: 07/11/22 Chief Complaint: Shortness of breath Patient is a 66-year-old male with a known history of cardiomyopathy, chronic elevated left diaphragm, on home oxygen at 4 L by nasal cannula, DVT of both legs, chronic lower back pain, gout, coronary artery disease history of stent placement, COPD, hypertension, hyperlipidemia and other multiple medical problems and rheumatoid arthritis presents to ER with complaints of generalized weakness for the past 3 days. Patient also felt numbness and pain in both legs. No focal weakness. Patient had generalized weakness. No complaints of fever or chills. No nausea vomiting abdominal pain or diarrhea. Denied any dysuria or hematuria. Patient is somewhat poor historian. Chest x-ray on admission showed no acute cardio pulmonary process. Emphysema. EKG showed sinus rhythm Laboratory data showed WBC 6.6 hemoglobin 8.9 and platelets 168 Sodium 138 potassium 5.7, chloride 107 BUN 30. Creatinine 1.2 ProBNP 1250 and liver enzymes not elevated Urinalysis is negative for infection Vang virus detected.. Patient is vaccinated. Review of Systems Constitutional: Patient denies any fever or chills . Patient does have generalized weakness and fatigue.. Abdomen: Patient denied nausea vomiting and diarrhea and abdominal pain. Cardiovascular: Patient denies any chest pain or short of breath no palpitations. Respiratory: Does have cough without sputum production and does have shortness of breath Neurologic: Patient denied any numbness or tingling headache. Musculoskeletal: Patient denies any complaints of joint swelling or deformity. Skin: Negative Psychiatric: Negative Endocrine: No heat or cold intolerance. No recent weight gain. Genitourinary: No dysuria or hematuria. All other 14 point ROS negative except the above Past Medical History Past Medical History: Blood Disorder, Coronary Artery Disease (CAD), Heart Failure, COPD, Deep Vein Thrombosis (DVT), GERD/Reflux, Hyperlipidemia, Hypertension, Osteoarthritis (OA), Respiratory Disorder, Rheumatoid Arthritis (RA), Skin Disorder, Vascular Disorder Additional Past Medical History / Comment(s): Cardiomyopathy, home oxygen at 4L/NC ATC lately, slightly elevated L diaphragm, multiple dislocations of left total hip, psoriasis, gout, hx of DVT both legs, chronic pain/lowervback and bilateral hip pain, current chronic small open left ankle wound now healed, past pancytopenia/febrile neutropenia/fever thought possibly d/t Humira, PAD, gout, chronic anemia, occasional dysphagia, severe protein calorie malnutrition, small bowel ileus, nephrolithiasis, chronic R hip avascular necresis, recent R shoulder pain, . History of Any Multi-Drug Resistant Organisms: MRSA Date of last positivie culture/infection: 06/09/17 MDRO Source:: Left Ankle Past Surgical History: Back Surgery, Heart Catheterization, Heart Catheterization With Stent, Hernia Repair, Joint Replacement, Orthopedic Surgery Additional Past Surgical History / Comment(s): Aortagrams with run-offs, bilateral leg atherectomies/stenting/PTBA, PCI with stents, lower back fusion/anuel, L ankle screw, L total hip arthroplasty/then removal and hardware inserted, Rebekah fundaplication, EGDs, colonoscopies. Past Anesthesia/Blood Transfusion Reactions: Previous Problems w/ Anesthesia Additional Past Anesthesia/Blood Transfusion Reaction / Comment(s): "HAS CONFUSION AND DISORIENTATION POST ANESTHESIA " on occasion. Date of Last Stent Placement:: 2018 [facility] Smoking Status: Never smoker - Past Family History Mother Family Medical History: No Reported History Additional Family Medical History / Comment(s): Father History Unknown: Yes Family Medical History: Unable to Obtain Medications and Allergies Home Medications Medication Instructions Recorded Confirmed Type Gabapentin [Neurontin] 300 mg PO TID 05/17/19 07/11/22 History Ipratropium-Albuterol Nebulize 3 ml INHALATION RT-QID 06/18/19 07/11/22 History [Duoneb 0.5 mg-3 mg/3 ml Soln] Albuterol Sulfate [Proair Hfa] 2 puff INHALATION RT-Q4H PRN 07/30/19 07/11/22 History Ferrous Sulfate [Iron] 325 mg PO DAILY 09/12/19 07/11/22 History Donepezil [Aricept] 5 mg PO HS 11/03/19 07/11/22 History allopurinoL [Zyloprim] 300 mg PO DAILY 11/03/19 07/11/22 History Aspirin [Adult Low Dose Aspirin EC] 81 mg PO DAILY 05/21/20 07/11/22 History Citalopram Hydrobromide [CeleXA] 20 mg PO DAILY 05/21/20 07/11/22 History Guselkumab [Tremfya] 100 mg SQ Q56D 05/21/20 07/11/22 History Atorvastatin Calcium [Lipitor] 80 mg PO HS 04/02/21 07/11/22 History Famotidine [Pepcid] 20 mg PO DAILY 04/02/21 07/11/22 History Metoprolol Succinate [Toprol XL] 25 mg PO DAILY 04/02/21 07/11/22 History Furosemide [Lasix] 20 mg PO DAILY 05/19/22 07/11/22 History Sildenafil Citrate 100 mg PO DAILY PRN 05/19/22 07/11/22 History hydrOXYzine HCL [Atarax] 25 mg PO HS 05/19/22 07/11/22 History lisinopriL [Zestril] 10 mg PO DAILY 05/19/22 07/11/22 History traMADol HCL [Ultram ER] 100 mg PO BID PRN 05/19/22 07/11/22 History Tamsulosin [Flomax] 0.4 mg PO DAILY cap 05/26/22 07/11/22 Rx Acetaminophen Tab [Tylenol] 650 mg PO Q4HR PRN 07/11/22 07/11/22 History Allergies Allergy/AdvReac Type Severity Reaction Status Date / Time No Known Allergies Allergy Verified 07/11/22 13:59 Physical Exam Vitals: Vital Signs Temp Pulse Pulse Resp BP BP Pulse Ox 07/11/22 18:32 24 07/11/22 18:23 98.4 F 84 24 176/83 100 07/11/22 14:14 79 07/11/22 14:03 74 07/11/22 13:48 74 20 133/68 94 L 07/11/22 11:05 75 07/11/22 10:53 74 07/11/22 10:48 79 20 136/61 95 07/11/22 09:52 26 H 07/11/22 09:45 97.9 F 79 16 135/71 100 Intake and Output 07/11/22 07/11/22 07/11/22 06:59 14:59 22:59 Intake Total 500 Output Total 237 Balance -237 500 Intake: Oral 500 Output: Post Void Residual 237 Other: Weight 65.771 kg 65.771 kg PHYSICAL EXAMINATION: Patient is lying in the bed comfortably, no acute distress, awake alert and oriented but lethargic... HEENT: Normocephalic. Neck is supple. Pupils reactive. Nostrils clear. Oral cavity is moist. Neck reveals no JVD, carotid bruits, or thyromegaly. CHEST EXAMINATION: Trachea is central. Symmetrical expansion. Bilateral diffuse wheezing and rhonchi.. CARDIAC: Normal S1, S2 with no gallops. No murmurs ABDOMEN: Soft. Bowel sounds normal. No organomegaly. No abdominal bruits. Extremities: reveal no edema. No clubbing or cyanosis Neurologically awake, alert, oriented x3 with well-coordinated movements. No focal deficits noted Skin: No rash or skin lesions. Psychiatric: Coperative. Nonsuicidal could not be seen completely. Musculoskeletal: No joint swelling or deformity. Normal range of motion. Results CBC & Chem 7: 07/12/22 02:59 07/12/22 02:59 Labs: Abnormal Lab Results - Last 24 Hours (Table) 07/11/22 07/11/22 07/11/22 Range/Units 10:20 11:35 12:15 RBC 2.73 L (4.30-5.90) m/uL Hgb 8.9 L (13.0-17.5) gm/dL Hct 27.5 L (39.0-53.0) % MCV 100.9 H (80.0-100.0) fL Lymphocytes # 0.4 L (1.0-4.8) k/uL Potassium 5.7 H (3.5-5.1) mmol/L Carbon Dioxide 21 L (22-30) mmol/L BUN 33 H (9-20) mg/dL Glucose 117 H (74-99) mg/dL AST 16 L (17-59) U/L Urine Protein Trace H (Negative) Ur Leukocyte Esterase Trace H (Negative) Urine Mucus Rare H (None) /hpf Coronavirus (PCR) (Not Detectd) 07/11/22 Range/Units 15:09 RBC (4.30-5.90) m/uL Hgb (13.0-17.5) gm/dL Hct (39.0-53.0) % MCV (80.0-100.0) fL Lymphocytes # (1.0-4.8) k/uL Potassium (3.5-5.1) mmol/L Carbon Dioxide (22-30) mmol/L BUN (9-20) mg/dL Glucose (74-99) mg/dL AST (17-59) U/L Urine Protein (Negative) Ur Leukocyte Esterase (Negative) Urine Mucus (None) /hpf Coronavirus (PCR) Detected A (Not Detectd) Thrombosis Risk Factor Assmnt - DVT/VTE Prophylaxis DVT/VTE Prophylaxis: Pharmacologic Prophylaxis ordered - Choose All That Apply Any of the Below Risk Factors Present?: No Other Risk Factors: Yes Each Risk Factor Represents 2 Points: Age 61-74 years Thrombosis Risk Factor Assessment Total Risk Factor Score: 2 Thrombosis Risk Factor Assessment Level: Low Risk Assessment and Plan Assessment: Shortness of breath secondary to acute COPD exacerbation Generalized weakness and fatigue Acute COVID 19 infection. Mild hyperkalemia Hypertension Coronary artery disease with history of stent placement History of DVT Hyperlipidemia Osteoarthritis That his Cardiomyopathy DVT prophylaxis with Lovenox subcu Plan: Patient will be continued on oxygen supplementation and IV Solu-Medrol 60 mg every 6 hourly. Continue with DuoNeb's and follow respiratory status closely. Will order inflammatory markers and continue with droplet precautions. Current home medications and hold lisinopril due to mild hyperkalemia. Continue to follow closely. Prognosis is guarded with multiple medical problems and comorbid conditions. Pulmonary was consulted. Time with Patient: Greater than 30
[2022-07-12] MEDS: SYMBICORT 160-4.5 MCG INHALER INHALATION SCH (20:20)
[2022-07-12] MEDS: hydrOXYzine HCL 25 MG TAB PO SCH (21:26)
[2022-07-12] MEDS: ATORVASTATIN 80 MG TAB PO SCH (21:26)
[2022-07-12] MEDS: DONEPEZIL 5 MG TAB PO SCH (21:27)
[2022-07-13] MEDS: methylPREDNISolone SOD SUCCI 125 MG/2 ML VIAL IV SCH ×2 (05:28→12:26)
[2022-07-13] MEDS: FERROUS SULFATE 325 MG TAB PO SCH (08:12)
[2022-07-13] MEDS: lisinopriL 10 MG TAB PO SCH (08:12)
[2022-07-13] MEDS: TAMSULOSIN 0.4 MG CAP.ER.24H PO SCH (08:12)
[2022-07-13] MEDS: FUROSEMIDE 20 MG TAB PO SCH (08:12)
[2022-07-13] MEDS: ENOXAPARIN 40 MG/0.4 ML SYRINGE SQ SCH (08:12)
[2022-07-13] MEDS: ASPIRIN 81 MG PO SCH (08:12)
[2022-07-13] MEDS: CITALOPRAM HYDROBROMIDE 20 MG TAB PO SCH (08:12)
[2022-07-13] MEDS: GABAPENTIN 300 MG CAP PO SCH ×3 (08:12→20:55)
[2022-07-13] MEDS: METOPROLOL SUCCINATE (ER) 25 MG TAB.ER.24H PO SCH (08:12)
[2022-07-13] MEDS: allopurinoL 300 MG TAB PO SCH (08:13)
[2022-07-13] MEDS: FAMOTIDINE 20 MG TAB PO SCH (08:13)
[2022-07-13] MEDS: TIOTROPIUM 2.5 MCG INHALER INHALATION SCH (08:44)
[2022-07-13] MEDS: SYMBICORT 160-4.5 MCG INHALER INHALATION SCH ×2 (08:44→19:56)
[2022-07-13] MEDS: ALBUTEROL HFA INHALER INHALATION SCH ×4 (08:44→19:55)
[2022-07-13 10:03] LABS: C Reactive Protein 5.5 mg/dL (0.00-0.80)
--- NOTE | 2022-07-13 15:12 | P.PN ---
Subjective Progress Note Date: 07/13/22 Principal diagnosis: Acute exacerbation of COPD, and acute COVID-19 infection This a very pleasant 66-year-old male patient who has a 50 year smoking history however quit in December 2021, rheumatoid arthritis, cardiomyopathy, gastric esophageal reflux disease, gout, psoriasis, coronary disease with previous stent placement, peripheral vascular disease with previous PTB BONNIE/stenting, multiple orthopedic surgeries. He has a significant oxygen dependent chronic obstructive pulmonary disease with an FEV1 value 34% of predicted. He had been maintained on Trelegy and pro-air. He follows with Dr. Bermudez in our office for the same. He presented here to the emergency room yesterday with a 1 week history of weakness and shortness of breath. No fever or chills. No nausea vomiting or diarrhea. He states he is vaccinated and boosted against COVID-19. He did test positive here yesterday. Chest x-ray revealed no acute pulmonary process. There is evidence of emphysema. Elevation of left alek diaphragm which is chronic. White count 4.7. Hemoglobin 8.2. Platelets 166. Lymphocytes 0.3. Sodium 143. Potassium 5.6. BUN 35. Creatinine 1.0. Glucose 162. Vang virus by PCR positive. ProBNP 1250. Troponin negative 1. Reevaluated today on 07/13/22, patient is feeling better breathing easier less cough and less wheezing less shortness of breath. Obviously is responding to treatment with bronchodilators and steroids. Chest x-ray on admission showed no evidence of pneumonia but he does have chronically elevated left hemidiaphragm which may be paralyzed. Objective - Vital Signs Vital signs: Vital Signs Temp 98.2 F 07/13/22 07:30 Pulse 69 07/13/22 08:18 Resp 19 07/13/22 08:18 BP 161/75 07/13/22 07:30 Pulse Ox 98 07/13/22 07:30 FiO2 Intake & Output 07/12/22 07/13/22 07/13/22 18:59 06:59 18:59 Intake Total 420 500 420 Output Total 1300 Balance -880 500 420 Intake: Oral 420 500 420 Output: Urine 1300 Other: Voiding Method Urinal Urinal Urinal # Voids 1 - Exam Physical Exam revealed a 66-year-old white male in no distress, on 2 L nasal cannula with O2 sats is 98 Head: Atraumatic normocephalic. HEENT:[Neck is supple.] [No neck masses.] [No thyromegaly.] [No JVD.] Chest: [Diminished breath sounds at the bases especially at the left base some wheezing on forced expiratory maneuver only. Cardiac Exam: [Normal S1 and S2, no S3 gallop, no murmur.] Abdomen: [Soft, nontender, no megaly, no rebound, no guarding, normal bowel sounds.] Extremities: [No clubbing, no edema, no cyanosis.] Neurological Exam: [No focal neurologic deficit.] Alert and oriented 3 Psychiatric: Normal mood affect and normal mental status examination. Skin: No rashes - Labs CBC & Chem 7: 07/12/22 02:59 07/12/22 02:59 Labs: Abnormal Lab Results - Last 24 Hours (Table) 07/13/22 Range/Units 05:37 C-Reactive Protein 5.50 H (0.00-0.80) mg/dL TSH 0.061 L (0.350-5.500) uIU/mL Microbiology - Last 24 Hours (Table) 07/11/22 10:30 Blood Culture - Preliminary Blood No Growth after 48 hours 07/11/22 10:45 Blood Culture - Preliminary Blood No Growth after 48 hours Assessment and Plan Assessment: Impression: Acute exacerbation of COPD Chronic hypoxic respiratory failure secondary to COPD FEV1 of 34% COVID-19 infection, no clear-cut evidence of pneumonia Underlying coronary artery disease and previous stent placement [id number] smoking history quit in December of 2021 Rheumatoid arthritis Dyslipidemia Hypertension Cardiomyopathy Recommendation: Continue present treatment plan including Symbicort and albuterol updrafts Consider discharge planning in the next 24 hours.\ Changes Solu-Medrol to prednisone 30 mg daily Continue oxygen Follow-up on outpatient basis Time with Patient: Less than 30
[2022-07-13] MEDS: predniSONE 10 MG TAB PO SCH (16:34)
[2022-07-13] MEDS: ATORVASTATIN 80 MG TAB PO SCH (20:55)
[2022-07-13] MEDS: DONEPEZIL 5 MG TAB PO SCH (20:55)
[2022-07-13] MEDS: hydrOXYzine HCL 25 MG TAB PO SCH (20:55)
[2022-07-14] MEDS: TIOTROPIUM 2.5 MCG INHALER INHALATION SCH (08:14)
[2022-07-14] MEDS: ALBUTEROL HFA INHALER INHALATION SCH ×3 (08:14→16:10)
[2022-07-14] MEDS: SYMBICORT 160-4.5 MCG INHALER INHALATION SCH (08:14)
--- NOTE | 2022-07-14 09:29 | P.PN ---
Subjective Progress Note Date: 07/12/22 Patient is a 66-year-old male with a known history of cardiomyopathy, chronic elevated left diaphragm, on home oxygen at 4 L by nasal cannula, DVT of both legs, chronic lower back pain, gout, coronary artery disease history of stent placement, COPD, hypertension, hyperlipidemia and other multiple medical problems and rheumatoid arthritis presents to ER with complaints of generalized weakness for the past 3 days. Patient also felt numbness and pain in both legs. No focal weakness. Patient had generalized weakness. No complaints of fever or chills. No nausea vomiting abdominal pain or diarrhea. Denied any dysuria or hematuria. Patient is somewhat poor historian. Chest x-ray on admission showed no acute cardio pulmonary process. Emphysema. EKG showed sinus rhythm Laboratory data showed WBC 6.6 hemoglobin 8.9 and platelets 168 Sodium 138 potassium 5.7, chloride 107 BUN 30. Creatinine 1.2 ProBNP 1250 and liver enzymes not elevated Urinalysis is negative for infection Vang virus detected.. Patient is vaccinated. 07/12/2022 Patient is currently lying in bed. No complaints of chest pain. Still having shortness of breath and bilateral diminished air entry. Patient is requiring 4 L oxygen via nasal cannula. Patient was tested positive for COVID Afebrile currently. No nausea vomiting or abdominal pain or diarrhea. Cough without any sputum production. Laboratory data showed WBC 4.7 hemoglobin 8.2 and platelets 166 Sodium 140 potassium 5.6 chloride, bicarb is 20.5 BUN 34.6 and creatinine 1. CRP 5.5, B12 391 and TSH 0.061 and free T4 1 0.0. Pulmonary is on board Current medications reviewed. Objective - Vital Signs Vital signs: Vital Signs Temp 97.8 F 07/12/22 07:15 Pulse 75 07/12/22 09:25 Resp 18 07/12/22 09:25 BP 175/82 07/12/22 07:15 Pulse Ox 98 07/12/22 07:15 FiO2 Intake & Output 07/11/22 07/12/22 07/12/22 18:59 06:59 18:59 Intake Total 500 180 Output Total 237 700 Balance -237 500 -520 Weight 65.771 kg Intake: Oral 500 180 Output: Urine 700 Post Void Residual 237 Other: Voiding Method Toilet Toilet # Voids 2 - Exam PHYSICAL EXAMINATION: Patient is lying in the bed comfortably, no acute distress, awake alert and oriented.. HEENT: Normocephalic. Neck is supple. Pupils reactive. Nostrils clear. Oral cavity is moist. Neck reveals no JVD, carotid bruits, or thyromegaly. CHEST EXAMINATION: Trachea is central. Symmetrical expansion. Patient does have bilateral coarse sounds and diminished sounds with wheezing. Nonlabored breathing. CARDIAC: Normal S1, S2 with no gallops. No murmurs ABDOMEN: Soft. Bowel sounds normal. No organomegaly. No abdominal bruits. Extremities: reveal no edema. No clubbing or cyanosis Neurologically awake, alert, oriented x3 with well-coordinated movements. No focal deficits noted Skin: No rash or skin lesions. Psychiatric: Coperative. Nonsuicidal Musculoskeletal: No joint swelling or deformity. Normal range of motion. - Labs CBC & Chem 7: 07/12/22 02:59 07/12/22 02:59 Labs: Abnormal Lab Results - Last 24 Hours (Table) 07/11/22 07/11/22 07/11/22 Range/Units 10:20 11:35 12:15 RBC 2.73 L (4.30-5.90) m/uL Hgb 8.9 L (13.0-17.5) gm/dL Hct 27.5 L (39.0-53.0) % MCV 100.9 H (80.0-100.0) fL MCH (27.0-32.0) pg MCHC (32.0-37.0) g/dL RDW (11.5-14.5) % Lymphocytes # 0.4 L (1.0-4.8) k/uL Monocytes # (0.20-1.00) X 10*3/uL Eosinophils # (0.04-0.35) X 10*3/uL Potassium 5.7 H (3.5-5.1) mmol/L Chloride (96-109) mmol/L Carbon Dioxide 21 L (22-30) mmol/L BUN 33 H (9-20) mg/dL BUN/Creatinine Ratio (12.00-20.00) Ratio Glucose 117 H (74-99) mg/dL AST 16 L (17-59) U/L Urine Protein Trace H (Negative) Ur Leukocyte Esterase Trace H (Negative) Urine Mucus Rare H (None) /hpf Coronavirus (PCR) (Not Detectd) 07/11/22 07/12/22 07/12/22 Range/Units 15:09 02:59 02:59 RBC 2.53 L (4.30-5.90) m/uL Hgb 8.2 L (13.0-17.5) gm/dL Hct 26.5 L (39.0-53.0) % MCV 104.7 H (80.0-100.0) fL MCH 32.4 H (27.0-32.0) pg MCHC 30.9 L (32.0-37.0) g/dL RDW 14.6 H (11.5-14.5) % Lymphocytes # 0.31 L (1.0-4.8) k/uL Monocytes # 0.08 L (0.20-1.00) X 10*3/uL Eosinophils # 0 L (0.04-0.35) X 10*3/uL Potassium 5.6 H (3.5-5.1) mmol/L Chloride 111 H (96-109) mmol/L Carbon Dioxide (22-30) mmol/L BUN 34.6 H (9-20) mg/dL BUN/Creatinine Ratio 34.60 H (12.00-20.00) Ratio Glucose 162 H (74-99) mg/dL AST (17-59) U/L Urine Protein (Negative) Ur Leukocyte Esterase (Negative) Urine Mucus (None) /hpf Coronavirus (PCR) Detected A (Not Detectd) Assessment and Plan Assessment: Shortness of breath secondary to acute COPD exacerbation Generalized weakness and fatigue Acute COVID 19 infection. Mild hyperkalemia Hypertension Coronary artery disease with history of stent placement History of DVT Hyperlipidemia Osteoarthritis That his Cardiomyopathy DVT prophylaxis with Lovenox subcu Plan: Patient will be continued on oxygen supplementation and IV Solu-Medrol 60 mg every 6 hourly. Continue with DuoNeb's and follow respiratory status closely. continue with droplet precautions. Current home medications and hold lisinopril due to mild hyperkalemia. Follow- up repeat BMP. Continue to follow closely. Prognosis is guarded with multiple medical problems and comorbid conditions. Pulmonary is following. Time with Patient: Greater than 30
--- NOTE | 2022-07-14 09:31 | P.PN ---
Subjective Progress Note Date: 07/13/22 Patient is a 66-year-old male with a known history of cardiomyopathy, chronic elevated left diaphragm, on home oxygen at 4 L by nasal cannula, DVT of both legs, chronic lower back pain, gout, coronary artery disease history of stent placement, COPD, hypertension, hyperlipidemia and other multiple medical problems and rheumatoid arthritis presents to ER with complaints of generalized weakness for the past 3 days. Patient also felt numbness and pain in both legs. No focal weakness. Patient had generalized weakness. No complaints of fever or chills. No nausea vomiting abdominal pain or diarrhea. Denied any dysuria or hematuria. Patient is somewhat poor historian. Chest x-ray on admission showed no acute cardio pulmonary process. Emphysema. EKG showed sinus rhythm Laboratory data showed WBC 6.6 hemoglobin 8.9 and platelets 168 Sodium 138 potassium 5.7, chloride 107 BUN 30. Creatinine 1.2 ProBNP 1250 and liver enzymes not elevated Urinalysis is negative for infection Vang virus detected.. Patient is vaccinated. 07/12/2022 Patient is currently lying in bed. No complaints of chest pain. Still having shortness of breath and bilateral diminished air entry. Patient is requiring 4 L oxygen via nasal cannula. Patient was tested positive for COVID Afebrile currently. No nausea vomiting or abdominal pain or diarrhea. Cough without any sputum production. Laboratory data showed WBC 4.7 hemoglobin 8.2 and platelets 166 Sodium 140 potassium 5.6 chloride, bicarb is 20.5 BUN 34.6 and creatinine 1. Pulmonary is on board 07/13/2022 Patient states that he is feeling better today. Presents status is improving. No complains of cough or sputum production. No nausea vomiting abdominal pain or diarrhea. No fever no chills. No other acute overnight issues. No complaints of chest pain. Laboratory data showed CRP 5.5, B12 391 and TSH 0.061 and free T4 1.0. Current medications reviewed. Objective - Vital Signs Vital signs: Vital Signs Temp 97.9 F 07/13/22 15:00 Pulse 79 07/13/22 15:00 Resp 18 07/13/22 15:00 BP 163/76 07/13/22 15:00 Pulse Ox 95 07/13/22 15:00 FiO2 Intake & Output 07/13/22 07/13/22 07/14/22 06:59 18:59 06:59 Intake Total 500 420 Output Total 960 Balance 500 -540 Intake: Oral 500 420 Output: Urine 960 Other: Voiding Method Urinal Urinal # Voids 1 1 # Bowel Movements 1 - Exam PHYSICAL EXAMINATION: Patient is lying in the bed comfortably, no acute distress, awake alert and oriented.. HEENT: Normocephalic. Neck is supple. Pupils reactive. Nostrils clear. Oral c avity is moist. Neck reveals no JVD, carotid bruits, or thyromegaly. CHEST EXAMINATION: Trachea is central. Symmetrical expansion. Bilateral air entry improved. Scattered rhonchi. Minimal wheezing.. CARDIAC: Normal S1, S2 with no gallops. No murmurs ABDOMEN: Soft. Bowel sounds normal. No organomegaly. No abdominal bruits. Extremities: reveal no edema. No clubbing or cyanosis Neurologically awake, alert, oriented x3 with well-coordinated movements. No focal deficits noted Skin: No rash or skin lesions. Psychiatric: Coperative. Nonsuicidal Musculoskeletal: No joint swelling or deformity. Normal range of motion. - Labs CBC & Chem 7: 07/12/22 02:59 07/12/22 02:59 Labs: Abnormal Lab Results - Last 24 Hours (Table) 07/13/22 Range/Units 05:37 C-Reactive Protein 5.50 H (0.00-0.80) mg/dL TSH 0.061 L (0.350-5.500) uIU/mL Microbiology - Last 24 Hours (Table) 07/11/22 10:30 Blood Culture - Preliminary Blood No Growth after 48 hours 07/11/22 10:45 Blood Culture - Preliminary Blood No Growth after 48 hours Assessment and Plan Assessment: Shortness of breath secondary to acute COPD exacerbation Generalized weakness and fatigue Acute COVID 19 infection. Mild hyperkalemia Chronically elevated left hemidiaphragm Hypertension Coronary artery disease with history of stent placement History of DVT Hyperlipidemia Osteoarthritis That his Cardiomyopathy DVT prophylaxis with Lovenox subcu Plan: Patient will be continued on oxygen supplementation and IV Solu-Medrol 60 mg every 6 hourly. Continue with DuoNeb's and follow respiratory status closely. continue with droplet precautions. Current home medications and hold lisinopril due to mild hyperkalemia. Follow- up repeat BMP. Continue to follow closely. Prognosis is guarded with multiple medical problems and comorbid conditions. Pulmonary is following. Time with Patient: Greater than 30
[2022-07-14 09:52] LABS: Basophils % (A) 0 %; Eosinophils % (A) 0 %; HCT 27.7 % (39.0-53.0); HGB 8.8 gm/dL (13.0-17.5); Hypochromasia Moderate; Lymphocytes # (A) 0.4 k/uL (1.0-4.8); Lymphocytes % (A) 6 %; MCH 32.5 pg (25.0-35.0); MCHC 31.9 g/dL (31.0-37.0); MCV 101.9 fL (80.0-100.0); Macrocytosis Slight; Mean Platelet Volume 9.4; Monocytes # (A) 0.3 k/uL (0-1.0); Monocytes % (A) 5 %; Neutrophils # (A) 5.5 k/uL (1.3-7.7); Neutrophils % (A) 89 %; Platelet Count 171 k/uL (150-450); RBC 2.72 m/uL (4.30-5.90); RDW 14.5 % (11.5-15.5); WBC 6.3 k/uL (3.8-10.6)
[2022-07-14 10:08] LABS: African American GFR (CKD) >90 (>60 ml/min/1.73 sqM); Anion Gap 14 mmol/L; Blood Urea Nitrogen 40 mg/dL (9-20); Calcium 8.6 mg/dL (8.4-10.2); Carbon Dioxide 22 mmol/L (22-30); Chloride 108 mmol/L (98-107); Glucose 208 mg/dL (74-99); Non-African American GFR(CKD) 84 (>60 ml/min/1.73 sqM); Potassium 3.9 mmol/L (3.5-5.1); Sodium 144 mmol/L (137-145)
[2022-07-14] MEDS: predniSONE 10 MG TAB PO SCH (10:24)
[2022-07-14] MEDS: ASPIRIN 81 MG PO SCH (10:24)
[2022-07-14] MEDS: FAMOTIDINE 20 MG TAB PO SCH (10:24)
[2022-07-14] MEDS: TAMSULOSIN 0.4 MG CAP.ER.24H PO SCH (10:24)
[2022-07-14] MEDS: FUROSEMIDE 20 MG TAB PO SCH (10:25)
[2022-07-14] MEDS: lisinopriL 10 MG TAB PO SCH (10:25)
[2022-07-14] MEDS: FERROUS SULFATE 325 MG TAB PO SCH (10:25)
[2022-07-14] MEDS: GABAPENTIN 300 MG CAP PO SCH (10:25)
[2022-07-14] MEDS: METOPROLOL SUCCINATE (ER) 25 MG TAB.ER.24H PO SCH (10:25)
[2022-07-14] MEDS: allopurinoL 300 MG TAB PO SCH (10:25)
[2022-07-14] MEDS: ENOXAPARIN 40 MG/0.4 ML SYRINGE SQ SCH (10:25)
[2022-07-14] MEDS: CITALOPRAM HYDROBROMIDE 20 MG TAB PO SCH (10:25)
--- NOTE | 2022-07-14 13:12 | P.PN ---
Subjective Progress Note Date: 07/14/22 This a very pleasant 66-year-old male patient who has a 50 year smoking history however quit in December 2021, rheumatoid arthritis, cardiomyopathy, gastric esophageal reflux disease, gout, psoriasis, coronary disease with previous stent placement, peripheral vascular disease with previous PTB BONNIE/stenting, multiple orthopedic surgeries. He has a significant oxygen dependent chronic obstructive pulmonary disease with an FEV1 value 34% of predicted. He had been maintained on Trelegy and pro-air. He follows with Dr. Bermudez in our office for the same. He presented here to the emergency room yesterday with a 1 week history of weakness and shortness of breath. No fever or chills. No nausea vomiting or diarrhea. He states he is vaccinated and boosted against COVID-19. He did test positive here yesterday. Chest x-ray revealed no acute pulmonary process. There is evidence of emphysema. Elevation of left alek diaphragm which is chronic. White count 4.7. Hemoglobin 8.2. Platelets 166. Lymphocytes 0.3. Sodium 143. Potassium 5.6. BUN 35. Creatinine 1.0. Glucose 162. Vang virus by PCR positive. ProBNP 1250. Troponin negative 1. Reevaluated today on 07/13/22, patient is feeling better breathing easier less cough and less wheezing less shortness of breath. Obviously is responding to treatment with bronchodilators and steroids. Chest x-ray on admission showed no evidence of pneumonia but he does have chronically elevated left hemidiaphragm which may be paralyzed. The patient is seen today 07/14/2022 in follow-up on the regular medical floor. He is currently resting comfortably in bed. Awake and alert in no acute distress. His loose nonproductive cough. He is breathing easier today compared to yesterday. Maintaining O2 saturations in the 90s on 2 L/m per nasal cannula. He's been afebrile. Hemodynamically stable. Blood cultures revealed no growth. White count 6.3. Hemoglobin 8.8. Sodium 144. Potassium 3.9. Bicarb 14. BUN 40. Creatinine 0.93. He is continued on Symbicort, albuterol, Spiriva and prednisone. Lovenox for DVT prophylaxis. Objective - Vital Signs Vital signs: Vital Signs Temp 97.7 F 07/14/22 07:00 Pulse 79 07/14/22 08:00 Resp 20 07/14/22 08:00 BP 158/78 07/14/22 07:00 Pulse Ox 96 07/14/22 07:00 FiO2 Intake & Output 07/13/22 07/14/22 07/14/22 18:59 06:59 18:59 Intake Total 420 480 Output Total 960 Balance -540 480 Intake: Oral 420 480 Output: Urine 960 Other: Voiding Method Urinal Urinal # Voids 1 2 # Bowel Movements 1 - Exam GENERAL EXAM: Alert, thin, 66-year-old male patient, on 2 L nasal cannula, comfortable in no apparent distress. HEAD: Normocephalic. EYES: Normal reaction of pupils, equal size. NOSE: Clear with pink turbinates. THROAT: No erythema or exudates. NECK: No masses, no JVD. CHEST: No chest wall deformity. LUNGS: Equal air entry with end expiratory wheeze, diminished. CVS: S1 and S2 normal with no audible murmur, regular rhythm. ABDOMEN: No hepatosplenomegaly, normal bowel sounds, no guarding or rigidity. SPINE: No scoliosis or deformity SKIN: No rashes CENTRAL NERVOUS SYSTEM: No focal deficits, tone is normal in all 4 extremities. EXTREMITIES: There is no peripheral edema. No clubbing, no cyanosis. Melany pheral pulses are intact. - Labs CBC & Chem 7: 07/14/22 09:37 07/14/22 09:37 Labs: Abnormal Lab Results - Last 24 Hours (Table) 07/14/22 07/14/22 Range/Units 09:37 09:37 RBC 2.72 L (4.30-5.90) m/uL Hgb 8.8 L (13.0-17.5) gm/dL Hct 27.7 L (39.0-53.0) % MCV 101.9 H (80.0-100.0) fL Lymphocytes # 0.4 L (1.0-4.8) k/uL Chloride 108 H (98-107) mmol/L BUN 40 H (9-20) mg/dL Glucose 208 H (74-99) mg/dL Microbiology - Last 24 Hours (Table) 07/11/22 10:30 Blood Culture - Preliminary Blood No Growth after 48 hours 07/11/22 10:45 Blood Culture - Preliminary Blood No Growth after 48 hours Assessment and Plan Assessment: Acute exacerbation of chronic obstructive pulmonary disease Oxygen dependent chronic obstructive pulmonary disease with FEV1 value 34% of predicted COVID-19 infection, incidental finding, vaccinated and boosted 2 Coronary artery disease with previous stent placement Peripheral vascular disease with his PT PA/stent placement 50 year smoking history however quit in December 2021 Hypertension Hyperlipidemia Rheumatoid arthritis Cardiomyopathy Multiple orthopedic surgeries Plan: The patient was seen and evaluated Labs and medications reviewed The patient is cleared for discharge from the pulmonary standpoint Continue his home pulmonary medications Complete a prednisone taper Follow-up in the office in 1 week I have personally seen and examined the patient, performed the documentation and the assessment and plan as written. Number of minutes spent on the visit: 10.
[2022-07-14 14:19] VITALS: BP 152/69; PULSE 72; RESP 18; TEMP 97.4
--- NOTE | 2022-07-14 15:56 | P.DS ---
Providers Date of admission: 07/11/22 16:04 Expected date of discharge: 07/14/22 Attending physician: Pepe Flores Consults: 07/11/22 15:07 Consult Physician Routine Consulting Provider: Cyndy Hughes Consult Reason/Comments: COPD exacerbation, covid-19 Do you want consulting provider notified?: Yes Primary care physician: David Woodson [facility] Course: Final Diagnoses: Acute COPD exacerbation Generalized weakness and fatigue Recent COVID 19 infection, tested positive on admission. Vaccinated and boosted X 2. Chronic hypoxic respiratory failure secondary to COPD Mild hyperkalemia, resolved Chronically elevated left hemidiaphragm Hypertension Hyperlipidemia Coronary artery disease with history of stent placement PVD History of DVT Hyperlipidemia Osteoarthritis Rheumatoid arthritis Prior nicotine dependence, 50 year smoking history, quit December 2021 Cardiomyopathy Hospital course: This a 66-year-old gentleman admitted with acute COPD exacerbation, recent Covid, PCR detected COVID-19 on admission in a patient vaccinated and boosted 2, chronic hypoxic respiratory failure and multiple other medical issues. Evaluated by pulmonary, maintained on aggressive pulm onary toileting including nebulized bronchodilators, steroids with significant clinical improvement. Patient has been cleared by pulmonary with DC recommendations noted. Patient will be discharged home today in a stable condition with guarded prognosis. The impression and plan of care has been dictated as directed. : I performed a history and examination of this patient, discussed the same with the dictator. I agree with the dictator's note ,documented as a scribe. Any additional findings or plans will be noted. Patient Condition at Discharge: Stable Plan - Discharge Summary Discharge Rx Participant: No New Discharge Prescriptions: New predniSONE 10 mg PO DIRECTED #18 tab Budesonide-Formot 160-4.5 Mcg [Symbicort 160-4.5 Mcg Inhaler] 2 puff INHALATION RT-BID #1 each Continue Gabapentin [Neurontin] 300 mg PO TID Ipratropium-Albuterol Nebulize [Duoneb 0.5 mg-3 mg/3 ml Soln] 3 ml INHALATION RT-QID Albuterol Sulfate [Proair Hfa] 2 puff INHALATION RT-Q4H PRN PRN Reason: Shortness Of Breath Ferrous Sulfate [Iron] 325 mg PO DAILY Donepezil [Aricept] 5 mg PO HS allopurinoL [Zyloprim] 300 mg PO DAILY Citalopram Hydrobromide [CeleXA] 20 mg PO DAILY Aspirin [Adult Low Dose Aspirin EC] 81 mg PO DAILY Guselkumab [Tremfya] 100 mg SQ Q56D lisinopriL [Zestril] 10 mg PO DAILY hydrOXYzine HCL [Atarax] 25 mg PO HS Metoprolol Succinate [Toprol XL] 25 mg PO DAILY Famotidine [Pepcid] 20 mg PO DAILY Atorvastatin Calcium [Lipitor] 80 mg PO HS Sildenafil Citrate 100 mg PO DAILY PRN PRN Reason: e.d. Furosemide [Lasix] 20 mg PO DAILY traMADol HCL [Ultram ER] 100 mg PO BID PRN PRN Reason: Pain Tamsulosin [Flomax] 0.4 mg PO DAILY cap Acetaminophen Tab [Tylenol] 650 mg PO Q4HR PRN PRN Reason: Fever And/ Or Pain Discharge Medication List Gabapentin [Neurontin] 300 mg PO TID 05/17/19 [History] Ipratropium-Albuterol Nebulize [Duoneb 0.5 mg-3 mg/3 ml Soln] 3 ml INHALATION RT-QID 06/18/19 [History] Albuterol Sulfate [Proair Hfa] 2 puff INHALATION RT-Q4H PRN 07/30/19 [History] Ferrous Sulfate [Iron] 325 mg PO DAILY 09/12/19 [History] Donepezil [Aricept] 5 mg PO HS 11/03/19 [History] allopurinoL [Zyloprim] 300 mg PO DAILY 11/03/19 [History] Aspirin [Adult Low Dose Aspirin EC] 81 mg PO DAILY 05/21/20 [History] Citalopram Hydrobromide [CeleXA] 20 mg PO DAILY 05/21/20 [History] Guselkumab [Tremfya] 100 mg SQ Q56D 05/21/20 [History] Atorvastatin Calcium [Lipitor] 80 mg PO HS 04/02/21 [History] Famotidine [Pepcid] 20 mg PO DAILY 04/02/21 [History] Metoprolol Succinate [Toprol XL] 25 mg PO DAILY 04/02/21 [History] Furosemide [Lasix] 20 mg PO DAILY 05/19/22 [History] Sildenafil Citrate 100 mg PO DAILY PRN 05/19/22 [History] hydrOXYzine HCL [Atarax] 25 mg PO HS 05/19/22 [History] lisinopriL [Zestril] 10 mg PO DAILY 05/19/22 [History] traMADol HCL [Ultram ER] 100 mg PO BID PRN 05/19/22 [History] Tamsulosin [Flomax] 0.4 mg PO DAILY cap 05/26/22 [Rx] Acetaminophen Tab [Tylenol] 650 mg PO Q4HR PRN 07/11/22 [History] Budesonide-Formot 160-4.5 Mcg [Symbicort 160-4.5 Mcg Inhaler] 2 puff INHALATION RT-BID #1 each 07/14/22 [Rx] predniSONE 10 mg PO DIRECTED #18 tab 07/14/22 [Rx] Follow up Appointment(s)/Referral(s): Cyndy Hughes MD [STAFF PHYSICIAN] - 1 Week David Woodson DO [Primary Care Provider] - 3 Days
[2022-07-14] MEDS ORDERED: ZINC SULFATE 220 MG CAP PO SCH (16:00)
== END 2022-07-14 18:22 | disposition home or self-care (01) ==
LOC: EC 09:41 → 6NMEDSUR 16:04
PROVIDERS: ADMIT Internal Medicine; ATTEND Internal Medicine
DX: J43.9 Emphysema, unspecified (principal); U07.1 COVID-19; J96.11 Chronic respiratory failure with hypoxia; E87.5 Hyperkalemia; Z99.81 Dependence on supplemental oxygen; I11.0 Hypertensive heart disease with heart failure; I50.9 Heart failure, unspecified; I42.9 Cardiomyopathy, unspecified; I25.10 Atherosclerotic heart disease of native coronary artery without angina pectoris; E78.5 Hyperlipidemia, unspecified; M19.90 Unspecified osteoarthritis, unspecified site; D64.9 Anemia, unspecified; M06.9 Rheumatoid arthritis, unspecified; K21.9 Gastro-esophageal reflux disease without esophagitis; L40.9 Psoriasis, unspecified; M10.9 Gout, unspecified; J98.6 Disorders of diaphragm; I73.9 Peripheral vascular disease, unspecified; G89.29 Other chronic pain; M54.50 Low back pain, unspecified; M25.551 Pain in right hip; M25.552 Pain in left hip; Z79.82 Long term (current) use of aspirin; Z79.899 Other long term (current) drug therapy; Z86.14 Personal history of Methicillin resistant Staphylococcus aureus infection; Z86.718 Personal history of other venous thrombosis and embolism; Z87.891 Personal history of nicotine dependence; Z87.442 Personal history of urinary calculi; Z87.19 Personal history of other diseases of the digestive system; Z95.5 Presence of coronary angioplasty implant and graft; Z98.1 Arthrodesis status; Z95.820 Peripheral vascular angioplasty status with implants and grafts; Z96.642 Presence of left artificial hip joint; Z98.890 Other specified postprocedural states
CPT/HCPCS: 96376 ×3; 96372 ×3; 96374; 99285; 36415; 94640 ×8; 93005; 97163; 97166; 84439; 82747; 83880; 80053; 80048 ×2; 84443; 82607; 83605; 83615; 84484; 85025 ×3; 85610; 85730; 86140; 81001; 87040; 87635; 71046; G0378 ×4; J2930 ×3; J0456; J1650 ×3; J7512 ×2

== ENCOUNTER 2022-07-25 11:19 | Inpatient (IN) | payer MEDICARE ==
[2022-07-25] MEDS ORDERED: IPRATROPIUM-ALBUTEROL 3 ML NEB INHALATION STA (11:23)
[2022-07-25] MEDS ORDERED: methylPREDNISolone SOD SUCCI 125 MG/2 ML VIAL IV STA (11:23)
[2022-07-25 11:51] LABS: Basophils % (A) 0 %; Eosinophils # (A) 0.1 k/uL (0-0.7); Eosinophils % (A) 1 %; HCT 28.3 % (39.0-53.0); HGB 9.2 gm/dL (13.0-17.5); Hypochromasia Moderate; Lymphocytes # (A) 0.3 k/uL (1.0-4.8); Lymphocytes % (A) 3 %; MCH 33.2 pg (25.0-35.0); MCHC 32.4 g/dL (31.0-37.0); MCV 102.3 fL (80.0-100.0); Macrocytosis Slight; Monocytes # (A) 0.3 k/uL (0-1.0); Monocytes % (A) 4 %; Neutrophils # (A) 8.1 k/uL (1.3-7.7); Neutrophils % (A) 92 %; Platelet Count 178 k/uL (150-450); RBC 2.77 m/uL (4.30-5.90); WBC 8.7 k/uL (3.8-10.6)
--- NOTE | 2022-07-25 11:59 | ED ---
SOB HPI - General Chief Complaint: Shortness of Breath Stated Complaint: TRAVIS Time Seen by Provider: 07/25/22 11:23 Source: EMS Mode of arrival: EMS - History of Present Illness Initial Comments: This 58-year-old male presents with difficulty in breathing. This apparently became severe this morning. He does have a history of severe COPD. He is brought in by EMS and is on CPAP on arrival. They did give him a breathing treatment as well. Patient is unable to give any history himself due to the severe difficulty breathing and CPAP usage. History is obtained per paramedics. They relate that he was 87% while on his home oxygen at home. They're not aware of any known recent fevers. He apparently did not relate any chest pain to EMS. They do relate that he was just diagnosed with COVID 19 about a week and a half or so. He did have recent hospitalization as well. No other identifiable complaints or modifying factors but once again history is somewhat limited. later does present and gives additional history. She states that his shortness of breath has gradually increased over the past 3 days. She states that it was fairly severe this morning. He normally is an oxygen dependent COPD patient. She denies any fevers at home. He has not been complaining of any chest pain or leg pain. He is a full CODE STATUS. There is Covid 19 test was positive on 07/11/2022. - Related Data Home Medications Medication Instructions Recorded Confirmed Gabapentin [Neurontin] 300 mg PO TID 05/17/19 07/11/22 Ipratropium-Albuterol Nebulize 3 ml INHALATION RT-QID 06/18/19 07/11/22 [Duoneb 0.5 mg-3 mg/3 ml Soln] Albuterol Sulfate [Proair Hfa] 2 puff INHALATION RT-Q4H PRN 07/30/19 07/11/22 Ferrous Sulfate [Iron] 325 mg PO DAILY 09/12/19 07/11/22 Donepezil [Aricept] 5 mg PO HS 11/03/19 07/11/22 allopurinoL [Zyloprim] 300 mg PO DAILY 11/03/19 07/11/22 Aspirin [Adult Low Dose Aspirin EC] 81 mg PO DAILY 05/21/20 07/11/22 Citalopram Hydrobromide [CeleXA] 20 mg PO DAILY 05/21/20 07/11/22 Guselkumab [Tremfya] 100 mg SQ Q56D 05/21/20 07/11/22 Atorvastatin Calcium [Lipitor] 80 mg PO HS 04/02/21 07/11/22 Famotidine [Pepcid] 20 mg PO DAILY 04/02/21 07/11/22 Metoprolol Succinate [Toprol XL] 25 mg PO DAILY 04/02/21 07/11/22 Furosemide [Lasix] 20 mg PO DAILY 05/19/22 07/11/22 Sildenafil Citrate 100 mg PO DAILY PRN 05/19/22 07/11/22 hydrOXYzine HCL [Atarax] 25 mg PO HS 05/19/22 07/11/22 lisinopriL [Zestril] 10 mg PO DAILY 05/19/22 07/11/22 traMADol HCL [Ultram ER] 100 mg PO BID PRN 05/19/22 07/11/22 Acetaminophen Tab [Tylenol] 650 mg PO Q4HR PRN 07/11/22 07/11/22 Previous Rx's Medication Instructions Recorded Tamsulosin [Flomax] 0.4 mg PO DAILY cap 05/26/22 Budesonide-Formot 160-4.5 Mcg 2 puff INHALATION RT-BID #1 each 07/14/22 [Symbicort 160-4.5 Mcg Inhaler] predniSONE 10 mg PO DIRECTED #18 tab 07/14/22 Allergies Allergy/AdvReac Type Severity Reaction Status Date / Time No Known Allergies Allergy Verified 07/11/22 13:59 Review of Systems ROS Statement: Those systems with pertinent positive or pertinent negative responses have been documented in the HPI. ROS Other: All systems not noted in ROS Statement are negative. Past Medical History Past Medical History: Blood Disorder, Coronary Artery Disease (CAD), Heart Failure, COPD, Deep Vein Thrombosis (DVT), GERD/Reflux, Hyperlipidemia, Hy pertension, Osteoarthritis (OA), Respiratory Disorder, Rheumatoid Arthritis (RA), Skin Disorder, Vascular Disorder Additional Past Medical History / Comment(s): Cardiomyopathy, home oxygen at 4L/NC ATC lately, slightly elevated L diaphragm, multiple dislocations of left total hip, psoriasis, gout, hx of DVT both legs, chronic pain/lowervback and bilateral hip pain, current chronic small open left ankle wound now healed, past pancytopenia/febrile neutropenia/fever thought possibly d/t Humira, PAD, gout, chronic anemia, occasional dysphagia, severe protein calorie malnutrition, small bowel ileus, nephrolithiasis, chronic R hip avascular necresis, recent R shoulder pain, . History of Any Multi-Drug Resistant Organisms: MRSA Date of last positivie culture/infection: 06/09/17 MDRO Source:: Left Ankle Past Surgical History: Back Surgery, Heart Catheterization, Heart Cat heterization With Stent, Hernia Repair, Joint Replacement, Orthopedic Surgery Additional Past Surgical History / Comment(s): Aortagrams with run-offs, bilateral leg atherectomies/stenting/PTBA, PCI with stents, lower back fusion/anuel, L ankle screw, L total hip arthroplasty/then removal and hardware inserted, Rebekah fundaplication, EGDs, colonoscopies. Past Anesthesia/Blood Transfusion Reactions: Previous Problems w/ Anesthesia Additional Past Anesthesia/Blood Transfusion Reaction / Comment(s): "HAS CONFUSION AND DISORIENTATION POST ANESTHESIA " on occasion. Date of Last Stent Placement:: 2018 [facility] Past Psychological History: No Psychological Hx Reported Smoking Status: Never smoker - Past Family History Mother Family Medical History: No Reported History Additional Family Medical History / Comment(s): Father History Unknown: Yes Family Medical History: Unable to Obtain General Exam - General Exam Comments Initial Comments: GENERAL: The patient is well nourished and well hydrated. VITAL SIGNS: Heart rate, blood pressure, respiratory rate reviewed as recorded in nurse's notes. EYES: Pupils are round and reactive. Extraocular movements are intact. No conjunctival / lid redness or swelling. ENT: No external evidence of injury, swelling, or ecchymosis. Airway is patent. Throat is clear. NECK: Nontender. No swelling or evidence of injury. No subcutaneous emphysema. Trachea is midline. No thyroid mass. HEART: Regular rate and rhythm. Good peripheral pulses. LUNGS/CHEST: Decreased aeration noted. Bilateral wheezing identified. There is significant increased work of breathing. ABDOMEN: Abdomen soft without tenderness. No palpable masses or organomegaly. No peritoneal signs. No abdominal wall swelling or ecchymosis. EXTREMITIES: No extremity tenderness. Normal muscle tone and function. No thoracolumbar tenderness. NEUROLOGIC: Sensation is grossly intact. Cranial nerve exam reveals face is symmetrical, tongue is midline, speech is clear. SKIN: No abrasions or ecchymosis is noted. No induration or masses noted. PSYCHIATRIC: Alert and oriented. Appropriate behavior and judgment. Course Vital Signs 07/25/22 07/25/22 07/25/22 11:20 11:25 11:29 Temperature 100.1 F H 100.1 F H Pulse Rate 111 H 108 H Respiratory 24 24 Rate Blood Pressure 94/67 94/67 O2 Sat by Pulse 98 99 Oximetry Fraction of 40 Inspired Oxygen (FIO2) 07/25/22 07/25/22 07/25/22 11:36 11:37 11:46 Temperature Pulse Rate 105 H 102 H Respiratory 24 22 Rate Blood Pressure 112/77 112/57 O2 Sat by Pulse 98 98 Oximetry Fraction of Inspired Oxygen (FIO2) 07/25/22 07/25/22 07/25/22 12:00 12:25 12:27 Temperature Pulse Rate 106 H 98 Respiratory Rate Blood Pressure 105/55 O2 Sat by Pulse 99 Oximetry Fraction of Inspired Oxygen (FIO2) 07/25/22 12:39 Temperature Pulse Rate 100 Respiratory Rate Blood Pressure O2 Sat by Pulse Oximetry Fraction of Inspired Oxygen (FIO2) Medical Decision Making - Medical Decision Making The patient was seen and examined. All diagnostics were reviewed. IV is established. EKG shows a sinus tachycardia at a rate of 107. There is some artifact identified. There is no ST elevation identified. The CO intervals 162, QRS duration is 140, QTC intervals 404. Patient was continued on BiPAP. He also receives 2 DuoNeb breathing treatments. IV Solu-Medrol was given. Old records were reviewed. It appears as though he was just discharged 11 days ago. He had a COPD exacerbation at that time as well as a COVID-19 infection. Laboratory does show multiple abnormalities including elevated d-dimer, elevated potassium at 6.4, elevated BUN/creatinine and creatinine which is increased as compared to previous, chronic anemia which is stable, decreased magnesium. The chest x-ray was completed and this shows evidence of a new large left upper lobe pneumonia. IV antibiotics are initiated with Zosyn and vancomycin. Patient receives IV glucose, bicarbonate, and insulin as well as oral Kayexalate for treatment of hyperkalemia. Magnesium is replaced intravenously. It is felt as though patient is critically ill. His work of breathing is improved as compared to when he came in. On recheck he is 100% oxygenation on BiPAP. ABG is attempted via respiratory therapist and apparently they are having some difficulty in obtaining and this is currently pending. CT angiogram of chest is ordered due to the elevated d-dimer and history of recent COVID-19 infection. It is felt as though the patient is critically ill and would require admission to the intensive care unit. Case will be discussed with internal medicine and pulmonology in the near future. Proximally 45 minutes critical care time is utilized and the treatment of the patient. - Lab Data Result diagrams: 07/25/22 11:37 07/25/22 11:37 Lab Results 07/25/22 07/25/22 07/25/22 Range/Units 11:37 11:37 11:37 WBC 8.7 (3.8-10.6) k/uL RBC 2.77 L (4.30-5.90) m/uL Hgb 9.2 L (13.0-17.5) gm/dL Hct 28.3 L (39.0-53.0) % MCV 102.3 H (80.0-100.0) fL MCH 33.2 (25.0-35.0) pg MCHC 32.4 (31.0-37.0) g/dL RDW 15.0 (11.5-15.5) % Plt Count 178 (150-450) k/uL MPV 8.0 Neutrophils % 92 % Lymphocytes % 3 % Monocytes % 4 % Eosinophils % 1 % Basophils % 0 % Neutrophils # 8.1 H (1.3-7.7) k/uL Lymphocytes # 0.3 L (1.0-4.8) k/uL Monocytes # 0.3 (0-1.0) k/uL Eosinophils # 0.1 (0-0.7) k/uL Basophils # 0.0 (0-0.2) k/uL Hypochromasia Moderate Macrocytosis Slight PT 9.4 (9.0-12.0) sec INR 0.8 (<1.2) APTT 22.3 (22.0-30.0) sec D-Dimer 2.05 H (<0.60) mg/L FEU Sodium 136 L (137-145) mmol/L Potassium 6.4 H* (3.5-5.1) mmol/L Chloride 104 (98-107) mmol/L Carbon Dioxide 21 L (22-30) mmol/L Anion Gap 11 mmol/L BUN 44 H (9-20) mg/dL Creatinine 1.55 H (0.66-1.25) mg/dL Est GFR (CKD-EPI)AfAm 52 (>60 ml/min/1.73 sqM) Est GFR (CKD-EPI)NonAf 45 (>60 ml/min/1.73 sqM) Glucose 121 H (74-99) mg/dL Plasma Lactic Acid Juan (0.7-2.0) mmol/L Calcium 8.4 (8.4-10.2) mg/dL Magnesium 1.4 L (1.6-2.3) mg/dL Total Bilirubin 0.4 (0.2-1.3) mg/dL AST 17 (17-59) U/L ALT 16 (4-49) U/L Alkaline Phosphatase 78 (38-126) U/L Troponin I (0.000-0.034) ng/mL NT-Pro-B Natriuret Pep pg/mL Total Protein 6.3 (6.3-8.2) g/dL Albumin 3.7 (3.5-5.0) g/dL Coronavirus (PCR) (Not Detectd) Influenza Type A RNA (Not Detectd) Influenza Type B (PCR) (Not Detectd) 07/25/22 07/25/22 07/25/22 Range/Units 11:37 11:37 11:37 WBC (3.8-10.6) k/uL RBC (4.30-5.90) m/uL Hgb (13.0-17.5) gm/dL Hct (39.0-53.0) % MCV (80.0-100.0) fL MCH (25.0-35.0) pg MCHC (31.0-37.0) g/dL RDW (11.5-15.5) % Plt Count (150-450) k/uL MPV Neutrophils % % Lymphocytes % % Monocytes % % Eosinophils % % Basophils % % Neutrophils # (1.3-7.7) k/uL Lymphocytes # (1.0-4.8) k/uL Monocytes # (0-1.0) k/uL Eosinophils # (0-0.7) k/uL Basophils # (0-0.2) k/uL Hypochromasia Macrocytosis PT (9.0-12.0) sec INR (<1.2) APTT (22.0-30.0) sec D-Dimer (<0.60) mg/L FEU Sodium (137-145) mmol/L Potassium (3.5-5.1) mmol/L Chloride (98-107) mmol/L Carbon Dioxide (22-30) mmol/L Anion Gap mmol/L BUN (9-20) mg/dL Creatinine (0.66-1.25) mg/dL Est GFR (CKD-EPI)AfAm (>60 ml/min/1.73 sqM) Est GFR (CKD-EPI)NonAf (>60 ml/min/1.73 sqM) Glucose (74-99) mg/dL Plasma Lactic Acid Juan 1.4 (0.7-2.0) mmol/L Calcium (8.4-10.2) mg/dL Magnesium (1.6-2.3) mg/dL Total Bilirubin (0.2-1.3) mg/dL AST (17-59) U/L ALT (4-49) U/L Alkaline Phosphatase (38-126) U/L Troponin I <0.012 (0.000-0.034) ng/mL NT-Pro-B Natriuret Pep 344 pg/mL Total Protein (6.3-8.2) g/dL Albumin (3.5-5.0) g/dL Coronavirus (PCR) (Not Detectd) Influenza Type A RNA (Not Detectd) Influenza Type B (PCR) (Not Detectd) 07/25/22 07/25/22 Range/Units 11:37 11:37 WBC (3.8-10.6) k/uL RBC (4.30-5.90) m/uL Hgb (13.0-17.5) gm/dL Hct (39.0-53.0) % MCV (80.0-100.0) fL MCH (25.0-35.0) pg MCHC (31.0-37.0) g/dL RDW (11.5-15.5) % Plt Count (150-450) k/uL MPV Neutrophils % % Lymphocytes % % Monocytes % % Eosinophils % % Basophils % % Neutrophils # (1.3-7.7) k/uL Lymphocytes # (1.0-4.8) k/uL Monocytes # (0-1.0) k/uL Eosinophils # (0-0.7) k/uL Basophils # (0-0.2) k/uL Hypochromasia Macrocytosis PT (9.0-12.0) sec INR (<1.2) APTT (22.0-30.0) sec D-Dimer (<0.60) mg/L FEU Sodium (137-145) mmol/L Potassium (3.5-5.1) mmol/L Chloride (98-107) mmol/L Carbon Dioxide (22-30) mmol/L Anion Gap mmol/L BUN (9-20) mg/dL Creatinine (0.66-1.25) mg/dL Est GFR (CKD-EPI)AfAm (>60 ml/min/1.73 sqM) Est GFR (CKD-EPI)NonAf (>60 ml/min/1.73 sqM) Glucose (74-99) mg/dL Plasma Lactic Acid Juan (0.7-2.0) mmol/L Calcium (8.4-10.2) mg/dL Magnesium (1.6-2.3) mg/dL Total Bilirubin (0.2-1.3) mg/dL AST (17-59) U/L ALT (4-49) U/L Alkaline Phosphatase (38-126) U/L Troponin I (0.000-0.034) ng/mL NT-Pro-B Natriuret Pep pg/mL Total Protein (6.3-8.2) g/dL Albumin (3.5-5.0) g/dL Coronavirus (PCR) Not Detected (Not Detectd) Influenza Type A RNA Not Detected (Not Detectd) Influenza Type B (PCR) Not Detected (Not Detectd) Disposition Clinical Impression: Acute respiratory failure, COPD exacerbation, Acute kidney injury, Chronic anemia, Hyperkalemia, Hypomagnesemia, Pneumonia, History of COVID-19 Disposition: ADMITTED IP TO THIS [facility] Condition: Critical Is patient prescribed a controlled substance at d/c from ED?: No Time of Disposition: 12:49 Decision Date: 07/25/22 Decision Time: 12:49
[2022-07-25] MEDS ORDERED: PIPERACILLIN-TAZOBACTAM 3.375 GM in SODIUM CHLORIDE 0.9% 100 ML IVPB STA (12:13)
[2022-07-25] MEDS ORDERED: VANCOMYCIN IV PER PHARMACY 1 EACH MISC MISCELLANE PRN (12:14)
[2022-07-25] MEDS ORDERED: ALBUTEROL NEBULIZED 2.5 MG/3 ML INHALATION STA (12:14)
[2022-07-25] MEDS ORDERED: VANCOMYCIN 1,000 MG in SODIUM CHLORIDE 0.9% 250 ML IVPB STA (12:14)
[2022-07-25 12:16] LABS: Albumin 3.7 g/dL (3.5-5.0); Calcium 8.4 mg/dL (8.4-10.2); Magnesium 1.4 mg/dL (1.6-2.3); Total Bilirubin 0.4 mg/dL (0.2-1.3); Total Protein 6.3 g/dL (6.3-8.2)
[2022-07-25 12:17] LABS: INR 0.8 (<1.2)
[2022-07-25 12:18] LABS: Partial Thromboplastin Time 22.3 sec (22.0-30.0); Potassium 6.4 mmol/L (3.5-5.1); Prothrombin Time 9.4 sec (9.0-12.0)
--- NOTE | 2022-07-25 12:23 | XR ---
EXAMINATION TYPE: XR chest 1V portable DATE OF EXAM: 07/25/2022 COMPARISON: 07/11/2022 INDICATION: Short of breath TECHNIQUE: Frontal and lateral views of the chest are obtained. FINDINGS: The heart size is normal. The pulmonary vasculature is normal. There is consolidation within the left upper lung field. Correlate for pneumonia. Some streak atelect asis may be at the left base. There is mild elevation of left diaphragm.. IMPRESSION: 1. New left upper lobe infiltrate. Correlate for pneumonia. 2. Some mild streak atelectasis within the left lower lung field. Correlate for atelectasis. 3. Follow-up examinations to clearing are recommended.
[2022-07-25] MEDS ORDERED: DEXTROSE 50% SYRINGE 50 ML IVP ONE (12:32)
[2022-07-25] MEDS ORDERED: SODIUM POLYSTYRENE SULFONATE 15 GM/60 ML BOTTLE PO ONE (12:32)
[2022-07-25] MEDS ORDERED: INSULIN REGULAR 100 UNIT/ML VIAL (IV) IV ONE (12:32)
[2022-07-25] MEDS ORDERED: SODIUM BICARB 8.4% 50 ML SYR (1 MEQ/ML) IV ONE (12:32)
[2022-07-25] MEDS ORDERED: SODIUM CHLORIDE 0.9% 1,000 ML IV STA ×2 (12:41→12:42)
[2022-07-25] MEDS ORDERED: NALOXONE 0.4 MG/ML 1 ML VIAL IV PRN (12:52)
[2022-07-25] MEDS ORDERED: ENOXAPARIN 60 MG/0.6 ML SYRINGE SQ STA (12:59)
--- NOTE | 2022-07-25 13:47 | CT ---
EXAMINATION TYPE: CT angio chest DATE OF EXAM: 07/25/2022 1:33 PM COMPARISON: None HISTORY: Shortness of breath CT DLP: 584.1 mGycm Automated exposure control for dose reduction was used. CONTRAST: CTA scan of the thorax is performed with IV Contrast, patient injected with 80 mL of Isovue 370, pulm onary embolism protocol. 3-D postprocessing was performed. FINDINGS: There are diffuse partially consolidative and interstitial densities scattered throughout the left up per and lower lobes. There is a 15.5 mm spiculated mass in the right upper lobe highly suspicious for malignancy. There is no pleural effusion or pneumothorax. The great vessels the chest are normal and there is no mediastinal, hilar or axillary adenopathy. There is no filling defect within the pulmonary artery or segmental branches to suggest pulmonary emb olism. There is a large hiatal hernia. There are a few tiny sclerotic densities in the dorsal spine and the possibility of bony metastasis i s not entirely excluded. Bone scan useful for further evaluation. IMPRESSION: 1. No evidence of pulmonary embolism. 2. 15.5 mm spiculated mass right upper lobe highly suspicious for malignancy. 3 large scattered diffu se areas of partially consolidative and interstitial opacity in the left upper and lower lobes consis tent with acute infectious process/pneumonia. 3. A few scattered tiny sclerotic densities in the thoracic spine. Metastasis is not excluded and bon e scan useful for further evaluation. 4. Large hiatal hernia. 5. No mediastinal, hilar or axillary adenopathy.
[2022-07-25] MEDS ORDERED: NON FORMULARY DRUG (Sildenafil Citrate [Sildenafil Citrate] 100 MG Tablet) PO PRN (14:05)
[2022-07-25] MEDS ORDERED: ACETAMINOPHEN TAB 325 MG TAB PO PRN (14:05)
[2022-07-25] MEDS ORDERED: GUSELKUMAB 100 MG/ML SQ SCH (14:15)
[2022-07-25] MEDS: PANTOPRAZOLE 40 MG/10 ML VIAL IV SCH (14:51)
[2022-07-25] MEDS: IPRATROPIUM-ALBUTEROL 3 ML NEB INHALATION PRN ×2 (15:01→20:59)
[2022-07-25] MEDS: MAGNESIUM SULFATE-D5W PMX 1 GM in DEXTROSE/WATER 1 100ML.BAG IVPB SCH ×2 (15:11→16:55)
[2022-07-25] MEDS ORDERED: SODIUM BICARB 8.4% 50 ML SYR (1 MEQ/ML) IV STA (15:18)
--- NOTE | 2022-07-25 15:18 | P.CNPUL ---
History of Present Illness Consult date: 07/25/22 Reason for consult: dyspnea, pneumonia History of present illness: This is a pleasant 66-year-old male patient with advanced COPD. The patient is auction dependent and the patient has an FEV1 of 34% predicted consistent with severe COPD and the patient has had multiple hospitalization for COPD exacerbation. The patient was in the hospital on 07/11/2022 and at that time he was positive for cold and 19, treated without any major complications and he was discharged home. He came in today with worsening shortness of breath. The shortness of breath rapidly evolving the patient became quite dyspneic and he came into the hospital and the chest x-ray showed extensive consolidation of the left lung mainly in the left upper lobe and lingular segment and some in the left lower lobe. Based on that, the patient was immediately placed on a BiPAP at a pressure of 12/6 cm of water with FiO2 of 40%. His current respiratory rate is around 27. He is awake and alert. His generating a tidal volume of 750. CTA of the chest was also done in the emergency that showed no evidence of any pulmonary embolism. There was areas of spiculation in the right upper lobe measuring 15 mm suspicious for malignancy. At the same time, there was diffuse consolidation involving the left lung more so on the left upper lobe and to lesser extent in the left lower lobe. There is also some background emphysema as noted. The patient was already given a dose of Zosyn and dose of vancomycin. He was not on bronchodilators. He is started on steroids. He is still short of breath and is using his abdomen to breathe and is doing some abdominal breathing. He is known to have [id number] smoking history and he quit smoking in December 2021. Has rheumatoid arthritis. He has also cardiomyopathy, coronary artery disease, previous coronary stents, previous vascular intervention for peripheral vascular disease including stenting to his lower extremities and he has had previous orthopedic surgeries. He has also gout, chronic anemia, right hip avascular necrosis. He is oxygen dependent and he typically utilizes oxygen at 4 L/m nasal cannula on an outpatient basis. CAT scan of the chest also showed a small to moderate-sized hiatal hernia. Review of Systems Constitutional: Reports chills, Reports fatigue, Reports fever, Reports poor appetite, Reports weight loss Eyes: denies as per HPI, denies blurred vision, denies bulging eye, denies decreased vision, denies diplopia, denies discharge, denies dry eye, denies irritation, denies itching, denies pain, denies photophobia, denies loss of peripheral vision, denies loss of vision, denies tunnel vision/blind spots Ears: deny: decreased hearing, ear discharge, earache, tinnitus Ears, nose, mouth and throat: Reports as per HPI Breasts: absent: as per HPI, gynecomastia Cardiovascular: Reports decreased exercise tolerance, Reports dyspnea on exertion Respiratory: Reports cough, Reports dyspnea, Reports wheezing Gastrointestinal: Reports as per HPI Genitourinary: Reports as per HPI Musculoskeletal: Reports as per HPI Musculoskeletal: absent: ankle pain, ankle stiffness, ankle swelling, as per HPI, elbow pain, elbow stiffness, elbow swelling, foot pain, foot stiffness, foot swelling, hand pain, hand stiffness, hand swelling, hip pain, hip stiffness, hip swelling, knee pain, knee stiffness, knee swelling, shoulder pain, shoulder stiffness, shoulder swelling, wrist pain, wrist stiffness, wrist swelling Integumentary: Reports as per HPI Neurological: Reports as per HPI Psychiatric: Reports as per HPI Endocrine: Reports as per HPI, Reports fatigue Hematologic/Lymphatic: Reports as per HPI Allergic/Immunologic: Reports as per HPI Past Medical History Past Medical History: Blood Disorder, Coronary Artery Disease (CAD), Heart Failure, COPD, Deep Vein Thrombosis (DVT), GERD/Reflux, Hyperlipidemia, Hypertension, Osteoarthritis (OA), Respiratory Disorder, Rheumatoid Arthritis (RA), Skin Disorder, Vascular Disorder Additional Past Medical History / Comment(s): Cardiomyopathy, home oxygen at 4L/NC ATC lately, slightly elevated L diaphragm, multiple dislocations of left total hip, psoriasis, gout, hx of DVT both legs, chronic pain/lowervback and bilateral hip pain, current chronic small open left ankle wound now healed, past pancytopenia/febrile neutropenia/fever thought possibly d/t Humira, PAD, gout, chronic anemia, occasional dysphagia, severe protein calorie malnutrition, small bowel ileus, nephrolithiasis, chronic R hip avascular necresis, recent R shoulder pain, . History of Any Multi-Drug Resistant Organisms: MRSA Date of last positivie culture/infection: 06/09/17 MDRO Source:: Left Ankle Past Surgical History: Back Surgery, Heart Catheterization, Heart Catheterizat ion With Stent, Hernia Repair, Joint Replacement, Orthopedic Surgery Additional Past Surgical History / Comment(s): Aortagrams with run-offs, bilateral leg atherectomies/stenting/PTBA, PCI with stents, lower back fusion/anuel, L ankle screw, L total hip arthroplasty/then removal and hardware inserted, Rebekah fundaplication, EGDs, colonoscopies. Past Anesthesia/Blood Transfusion Reactions: Previous Problems w/ Anesthesia Additional Past Anesthesia/Blood Transfusion Reaction / Comment(s): "HAS CONFUSION AND DISORIENTATION POST ANESTHESIA " on occasion. Date of Last Stent Placement:: 2018 Past Psychological History: No Psychological Hx Reported Smoking Status: Never smoker - Past Family History Mother Family Medical History: No Reported History Additional Family Medical History / Comment(s): Father History Unknown: Yes Family Medical History: Unable to Obtain Medications and Allergies Home Medications Medication Instructions Recorded Confirmed Type Gabapentin [Neurontin] 300 mg PO TID 05/17/19 07/25/22 History Ipratropium-Albuterol Nebulize 3 ml INHALATION RT-QID 06/18/19 07/25/22 History [Duoneb 0.5 mg-3 mg/3 ml Soln] Albuterol Sulfate [Proair Hfa] 2 puff INHALATION RT-Q4H PRN 07/30/19 07/25/22 History Ferrous Sulfate [Iron] 325 mg PO DAILY 09/12/19 07/25/22 History Donepezil [Aricept] 5 mg PO HS 11/03/19 07/25/22 History allopurinoL [Zyloprim] 300 mg PO DAILY 11/03/19 07/25/22 History Aspirin [Adult Low Dose Aspirin EC] 81 mg PO DAILY 05/21/20 07/25/22 History Citalopram Hydrobromide [CeleXA] 20 mg PO DAILY 05/21/20 07/25/22 History Guselkumab [Tremfya] 100 mg SQ Q56D 05/21/20 07/25/22 History Atorvastatin Calcium [Lipitor] 80 mg PO HS 04/02/21 07/25/22 History Famotidine [Pepcid] 20 mg PO DAILY 04/02/21 07/25/22 History Metoprolol Succinate [Toprol XL] 25 mg PO DAILY 04/02/21 07/25/22 History Furosemide [Lasix] 20 mg PO DAILY 05/19/22 07/25/22 History Sildenafil Citrate 100 mg PO DAILY PRN 05/19/22 07/25/22 History hydrOXYzine HCL [Atarax] 25 mg PO HS 05/19/22 07/25/22 History lisinopriL [Zestril] 10 mg PO HS 05/19/22 07/25/22 History traMADol HCL [Ultram ER] 100 mg PO BID PRN 05/19/22 07/25/22 History Acetaminophen Tab [Tylenol] 650 mg PO Q4HR PRN 07/11/22 07/25/22 History Budesonide-Formot 160-4.5 Mcg 2 puff INHALATION RT-BID #1 each 07/14/22 07/25/22 Rx [Symbicort 160-4.5 Mcg Inhaler] Allergies Allergy/AdvReac Type Severity Reaction Status Date / Time No Known Allergies Allergy Verified 07/25/22 13:42 Physical Exam Vitals: Vital Signs Temp Pulse Resp BP Pulse Ox FiO2 07/25/22 14:59 40 07/25/22 14:18 97.8 F 84 22 108/88 100 07/25/22 13:06 107/60 07/25/22 12:39 100 07/25/22 12:27 98 07/25/22 12:25 105/55 99 07/25/22 12:00 106 H 07/25/22 11:46 102 H 112/57 98 07/25/22 11:37 105 H 22 112/77 98 07/25/22 11:36 24 07/25/22 11:29 40 07/25/22 11:25 100.1 F H 108 H 24 94/67 99 07/25/22 11:20 100.1 F H 111 H 24 94/67 98 Intake and Output 07/25/22 07/25/22 07/25/22 06:59 14:59 22:59 Other: Weight 58.967 kg GENERAL EXAM: Alert, thin, 66-year-old male patient, on At the pressures of 12/6 cm of water and apply gel 40%. He is in mild to moderate degree of respiratory distress. He is arousable and awake and communicating. History using his abdominal wall for breathing. HEAD: Normocephalic. EYES: Normal reaction of pupils, equal size. NOSE: Clear with pink turbinates. THROAT: No erythema or exudates. NECK: No masses, no JVD. CHEST: No chest wall deformity. LUNGS: Equal air entry with end expiratory wheeze, diminished. CVS: S1 and S2 normal with no audible murmur, regular rhythm. ABDOMEN: No hepatosplenomegaly, normal bowel sounds, no guarding or rigidity. SPINE: No scoliosis or deformity SKIN: No rashes CENTRAL NERVOUS SYSTEM: No focal deficits, tone is normal in all 4 extremities. EXTREMITIES: There is no peripheral edema. No clubbing, no cyanosis. Peripheral pulses are intact. Results - Laboratory Findings CBC and BMP: 07/25/22 11:37 07/25/22 11:37 PT/INR, D-dimer PT 9.4 sec (9.0-12.0) 07/25/22 11:37 INR 0.8 (<1.2) 07/25/22 11:37 D-Dimer 2.05 mg/L FEU (<0.60) H 07/25/22 11:37 Abnormal lab findings: Abnormal Labs 07/25/22 07/25/22 07/25/22 11:37 11:37 11:37 RBC 2.77 L Hgb 9.2 L Hct 28.3 L MCV 102.3 H Neutrophils # 8.1 H Lymphocytes # 0.3 L D-Dimer 2.05 H Sodium 136 L Potassium 6.4 H* Carbon Dioxide 21 L BUN 44 H Creatinine 1.55 H Glucose 121 H Magnesium 1.4 L - Diagnostic Findings Chest x-ray: image reviewed CT scan - chest: image reviewed Assessment and Plan Plan: Acute left lung pneumonia. The patient extensive consolidation of the left upper lobe, lingular segment in addition to some limited infiltration of the left lower lobe. As such, the patient has a extensive multilobar pneumonia with secondary hypoxic respiratory failure. Rule out possibility of a hospital- acquired pneumonia as the patient hasn't has less frequently for complications related to COPD exacerbation and a most his hospitalization was approximately 2 weeks ago Acute hypoxic respiratory failure secondary to above, currently on BiPAP at a pressure of 12/6 cm of water with FiO2 of 40% Acute COPD exacerbation secondary to above. Acute kidney injury secondary to above Acute hyperkalemia Chronic Oxygen dependent chronic obstructive pulmonary disease with FEV1 value 34% of predicted Recent history of COVID-19 infection, incidental finding, vaccinated and boosted 2 Coronary artery disease with previous stent placement Peripheral vascular disease with his PT PA/stent placement 50 year smoking history however quit in December 2021 Hypertension Hyperlipidemia Rheumatoid arthritis Cardiomyopathy Multiple orthopedic surgeries Plan Continue BiPAP support of the same pressures of 12/6 cm of water with FiO2 40% I will cover The patient with broad-spectrum antibiotics including a combination of Zosyn and vancomycin Check pro calcitonin level Sputum Gram stain and culture and blood culture DuoNeb neb treatment 4 times a day. Performance on Pulmicort neb treatments twice a day IV Solu-Medrol 60 mg every 6 hours Management hyperkalemia. Give the patient off IV fluids with normal saline 75 mL's an hour. Give 2 A of sodium bicarb and Kayexalate was also given in the emergency department and repeat potassium level in the ICU Heparin subcu for DVT prophylaxis IV Protonix Stop LISINOPRIL FOR NOW Transfer this patient to the intensive care unit. Obtain a blood gas. High likelihood for further decompensation requiring intubation mechanical ventilation. We'll continue to follow. Condition is extremely critical.
[2022-07-25 16:31] LABS: Glucose,Whole Blood 103 mg/dL (70-110)
[2022-07-25] MEDS: GABAPENTIN 300 MG CAP PO SCH ×2 (16:44→20:31)
[2022-07-25] MEDS: SODIUM CHLORIDE 0.9% 1,000 ML IV SCH (16:55)
[2022-07-25] MEDS: methylPREDNISolone SOD SUCCI 125 MG/2 ML VIAL IV SCH (16:56)
[2022-07-25] MEDS: PIPERACILLIN-TAZOBACTAM 3.375 GM in SODIUM CHLORIDE 0.9% 100 ML IVPB SCH (16:56)
[2022-07-25] MEDS ORDERED: SYMBICORT 160-4.5 MCG INHALER INHALATION SCH (20:00)
[2022-07-25] MEDS: ATORVASTATIN 80 MG TAB PO SCH (20:31)
[2022-07-25] MEDS: BUDESONIDE 0.5 MG/2 ML NEBU INHALATION SCH (20:59)
[2022-07-25] MEDS: FORMOTEROL FUMARATE 20 MCG/2 ML NEBU INHALATION SCH (20:59)
[2022-07-25] MEDS ORDERED: lisinopriL 10 MG TAB PO SCH (21:00)
--- NOTE | 2022-07-25 22:54 | P.HPIM ---
History of Present Illness H&P Date: 07/25/22 Chief Complaint: Difficulty in breathing Patient is a 66-year-old male with a known history of cardiomyopathy, chronic elevated left diaphragm, on home oxygen at 4 L by nasal cannula, history of DVT of both legs, chronic lower back pain, gout, coronary artery disease history of stent placement, COPD, hypertension, hyperlipidemia and other multiple medical problems and rheumatoid arthritis presents to ER with complaints of worsening shortness of breath since yesterday. Patient was hypoxic with pulse ox in 80s when EMS arrived and was placed on CPAP. Currently patient is on BiPAP while in the ER. Patient denied any complaints of cough or sputum production. Patient does complain of left lower chest with deep breathing. No nausea vomiting abdominal pain or diarrhea. Denied any dysuria or hematuria. Patient was recently admitted to hospital due to acute COPD exacerbation and acute COVID-19 infection. Chest x-ray at that time showed no acute cardiopulmonary process. Patient did improve clinically and was discharged home on 07/24/2022. On admission patient was hypoxic, tachycardic and T-max 100.1.. Chest x-ray showed new left upper lobe infiltrate correlate for pneumonia. Some mild streaky atelectasis within the left lower lobe field. Correlate for at electasis. Follow-up examination to clearing are recommended. Patient was found to have elevated D-dimer level. CT angio of the chest showed no evidence of PE. 15.5 cm spiculated mass right upper lobe highly suspicious for malignancy. 3 large scattered diffuse areas of partially consolidative and interstitial opacity in the left upper lobe and lower lobes consistent with acute infectious process/pneumonia. A few scattered tiny sclerotic densities in the thoracic spine metastases not excluded and bone scan useful for further evaluation. Large hiatal hernia No no mediastinal or hilar or axillary adenopathy. Laboratory data showed WBC 8.7, hemoglobin 9.1 platelets 178 MCV 102.3 D-dimer is 2.0 point Sodium 136 potassium 6.4 chloride 104 bicarb is 21 BUN 44 and creatinine 1.55 and blood sugar is 121 Magnesium 1.4 proBNP 344 Coronavirus PCR not detected. Review of Systems Constitutional: Patient denies any fever or chills . Patient does have generalized weakness. Abdomen: Patient denied any nausea or vomiting or abd. pain Cardiovascular: Patient denies any chest pain. Pleuritic chest pain. Positive for short of breath no palpitations. No leg swelling Respiratory: Patient does complain of cough without phlegm production. Difficulty in breathing Neurologic: Patient denied any numbness or tingling headache. Musculoskeletal: Patient denies any complaints of joint swelling or deformity. Skin: Negative Psychiatric: Negative Endocrine: No heat or cold intolerance. No recent weight gain. Genitourinary: No dysuria or hematuria. All other 14 point ROS negative except the above Past Medical History Past Medical History: Blood Disorder, Coronary Artery Disease (CAD), Heart Failure, COPD, Deep Vein Thrombosis (DVT), GERD/Reflux, Hyperlipidemia, Hypertension, Osteoarthritis (OA), Respiratory Disorder, Rheumatoid Arthritis (RA), Skin Disorder, Vascular Disorder Additional Past Medical History / Comment(s): Cardiomyopathy, home oxygen at 4L/NC ATC lately, slightly elevated L diaphragm, multiple dislocations of left total hip, psoriasis, gout, hx of DVT both legs, chronic pain/lowervback and bilateral hip pain, current chronic small open left ankle wound now healed, past pancytopenia/febrile neutropenia/fever thought possibly d/t Humira, PAD, gout, chronic anemia, occasional dysphagia, severe protein calorie malnutrition, small bowel ileus, nephrolithiasis, chronic R hip avascular necresis, recent R shoulder pain, . History of Any Multi-Drug Resistant Organisms: MRSA Date of last positivie culture/infection: 06/09/17 MDRO Source:: Left Ankle Past Surgical History: Back Surgery, Heart Catheterization, Heart Catheterization With Stent, Hernia Repair, Joint Replacement, Orthopedic Surgery Additional Past Surgical History / Comment(s): Aortagrams with run-offs, bilateral leg atherectomies/stenting/PTBA, PCI with stents, lower back fusion/anuel, L ankle screw, L total hip arthroplasty/then removal and hardware inserted, Rebekah fundaplication, EGDs, colonoscopies. Past Anesthesia/Blood Transfusion Reactions: Previous Problems w/ Anesthesia Additional Past Anesthesia/Blood Transfusion Reaction / Comment(s): "HAS CONFUSION AND DISORIENTATION POST ANESTHESIA " on occasion. Date of Last Stent Placement:: 2018 [facility] Past Psychological History: No Psychological Hx Reported Smoking Status: Never smoker - Past Family History Mother Family Medical History: No Reported History Additional Family Medical History / Comment(s): Father History Unknown: Yes Family Medical History: Unable to Obtain Medications and Allergies Home Medications Medication Instructions Recorded Confirmed Type Gabapentin [Neurontin] 300 mg PO TID 05/17/19 07/25/22 History Ipratropium-Albuterol Nebulize 3 ml INHALATION RT-QID 06/18/19 07/25/22 History [Duoneb 0.5 mg-3 mg/3 ml Soln] Albuterol Sulfate [Proair Hfa] 2 puff INHALATION RT-Q4H PRN 07/30/19 07/25/22 History Ferrous Sulfate [Iron] 325 mg PO DAILY 09/12/19 07/25/22 History Donepezil [Aricept] 5 mg PO HS 11/03/19 07/25/22 History allopurinoL [Zyloprim] 300 mg PO DAILY 11/03/19 07/25/22 History Aspirin [Adult Low Dose Aspirin EC] 81 mg PO DAILY 05/21/20 07/25/22 History Citalopram Hydrobromide [CeleXA] 20 mg PO DAILY 05/21/20 07/25/22 History Guselkumab [Tremfya] 100 mg SQ Q56D 05/21/20 07/25/22 History Atorvastatin Calcium [Lipitor] 80 mg PO HS 04/02/21 07/25/22 History Famotidine [Pepcid] 20 mg PO DAILY 04/02/21 07/25/22 History Metoprolol Succinate [Toprol XL] 25 mg PO DAILY 04/02/21 07/25/22 History Furosemide [Lasix] 20 mg PO DAILY 05/19/22 07/25/22 History Sildenafil Citrate 100 mg PO DAILY PRN 05/19/22 07/25/22 History hydrOXYzine HCL [Atarax] 25 mg PO HS 05/19/22 07/25/22 History lisinopriL [Zestril] 10 mg PO HS 05/19/22 07/25/22 History traMADol HCL [Ultram ER] 100 mg PO BID PRN 05/19/22 07/25/22 History Acetaminophen Tab [Tylenol] 650 mg PO Q4HR PRN 07/11/22 07/25/22 History Budesonide-Formot 160-4.5 Mcg 2 puff INHALATION RT-BID #1 each 07/14/22 07/25/22 Rx [Symbicort 160-4.5 Mcg Inhaler] Allergies Allergy/AdvReac Type Severity Reaction Status Date / Time No Known Allergies Allergy Verified 07/25/22 13:42 Physical Exam Vitals: Vital Signs Temp Pulse Resp BP Pulse Ox FiO2 07/25/22 14:59 40 07/25/22 14:18 97.8 F 84 22 108/88 100 07/25/22 13:06 107/60 07/25/22 12:39 100 07/25/22 12:27 98 07/25/22 12:25 105/55 99 07/25/22 12:00 106 H 07/25/22 11:46 102 H 112/57 98 07/25/22 11:37 105 H 22 112/77 98 07/25/22 11:36 24 07/25/22 11:29 40 07/25/22 11:25 100.1 F H 108 H 24 94/67 99 07/25/22 11:20 100.1 F H 111 H 24 94/ 98 Intake and Output 07/25/22 07/25/22 07/25/22 06:59 14:59 22:59 Other: Weight 58.967 kg PHYSICAL EXAMINATION: Patient is lying in the bed comfortably, no acute distress, awake alert and oriented.. On BiPAP currently HEENT: Normocephalic. Neck is supple. Pupils reactive. Nostrils clear. Oral cavity is moist. Neck reveals no JVD, carotid bruits, or thyromegaly. CHEST EXAMINATION: Trachea is central. Symmetrical expansion. Scattered rh onchi. Minimal expiratory wheezing. Nonlabored.. CARDIAC: Normal S1, S2 with no gallops. No murmurs ABDOMEN: Soft. Bowel sounds present. Nontender. No organomegaly. No abdominal bruits. Extremities: reveal no edema. No clubbing or cyanosis Neurologically awake, alert, oriented x3 with well-coordinated movements. No focal deficits noted Skin: No rash or skin lesions. Psychiatric: Coperative. Nonsuicidal, Musculoskeletal: No joint swelling or deformity. Normal range of motion. Results CBC & Chem 7: 07/25/22 11:37 07/25/22 16:55 Labs: Abnormal Lab Results - Last 24 Hours (Table) 07/25/22 07/25/22 07/25/22 Range/Units 11:37 11:37 11:37 RBC 2.77 L (4.30-5.90) m/uL Hgb 9.2 L (13.0-17.5) gm/dL Hct 28.3 L (39.0-53.0) % MCV 102.3 H (80.0-100.0) fL Neutrophils # 8.1 H (1.3-7.7) k/uL Lymphocytes # 0.3 L (1.0-4.8) k/uL D-Dimer 2.05 H (<0.60) mg/L FEU Sodium 136 L (137-145) mmol/L Potassium 6.4 H* (3.5-5.1) mmol/L Carbon Dioxide 21 L (22-30) mmol/L BUN 44 H (9-20) mg/dL Creatinine 1.55 H (0.66-1.25) mg/dL Glucose 121 H (74-99) mg/dL Magnesium 1.4 L (1.6-2.3) mg/dL Thrombosis Risk Factor Assmnt - DVT/VTE Prophylaxis DVT/VTE Prophylaxis: Pharmacologic Prophylaxis ordered Assessment and Plan Assessment: Acute hypoxic respiratory failure secondary to left upper lobe pneumonia Acute left upper lobe pneumonia Large 15.5 cm spiculated mass right upper lobe suspicious for malignancy. Acute COPD exacerbation Chronic hypoxic respiratory failure on 4 L oxygen via nasal cannula Acute kidney injury likely prerenal Hyperkalemia secondary acute kidney injury Recent COVID-19 infection. Discharged home on 07/14/2022. COVID is tested negative now. History of DVT Hypertension Hyperlipidemia Osteoarthritis Rheumatoid arthritis Coronary artery disease with history of stent placement Ischemic cardiomyopathy ejection fraction 30 to 35% in 2019 Chronically elevated left hemidiaphragm Chronic low back pain and bilateral hip pain Large hiatal hernia DVT prophylaxis Plan: Patient will be continued on BiPAP. Gentle IV hydration. Continue with antibiotics in the form of vancomycin and Zosyn with recent hospital admission. Continue with IV steroids and duo nebs and pulmonary is on board. CT angio of the chest showed spiculated mass highly suspicious for malignancy and also suspicious for metastatic bone mets.. Bone scan and possible PET scan as an outpatient versus biopsy.. Continue with GI and DVT prophylaxis and follow-up closely Prognosis is poor at this time. Continue to follow closely. Time with Patient: Greater than 30
[2022-07-26] MEDS: PIPERACILLIN-TAZOBACTAM 3.375 GM in SODIUM CHLORIDE 0.9% 100 ML IVPB SCH ×4 (00:42→23:18)
[2022-07-26] MEDS: methylPREDNISolone SOD SUCCI 125 MG/2 ML VIAL IV SCH ×5 (00:42→23:18)
[2022-07-26] MEDS: DONEPEZIL 5 MG TAB PO SCH ×2 (00:43→21:04)
[2022-07-26] MEDS: hydrOXYzine HCL 25 MG TAB PO SCH ×2 (00:43→21:03)
[2022-07-26] MEDS: SODIUM CHLORIDE 0.9% 1,000 ML IV SCH ×2 (06:43→23:19)
[2022-07-26] MEDS: FORMOTEROL FUMARATE 20 MCG/2 ML NEBU INHALATION SCH ×2 (07:25→19:51)
[2022-07-26] MEDS: BUDESONIDE 0.5 MG/2 ML NEBU INHALATION SCH ×2 (07:25→19:51)
--- NOTE | 2022-07-26 07:25 | XR ---
EXAMINATION TYPE: XR chest 1V DATE OF EXAM: 07/26/2022 COMPARISON: Chest x-ray 07/25/2022 HISTORY: Shortness of breath TECHNIQUE: Single frontal view of the chest is obtained. FINDINGS: Interstitium is increased, patient is rotated and there are overlying artifacts. No eviden t pneumothorax or pleural effusion. Right costophrenic angle not entirely included on exam. Cardiac m ediastinal silhouette is stable. Aorta is dense. The abnormal density in the left upper lobe is somew hat less confluent. Patient's lung nodule not well seen possibly due to rotation IMPRESSION: Suspect improvement in pneumonia. Patient with known right upper lobe lung nodule, under lying emphysema
[2022-07-26] MEDS: IPRATROPIUM-ALBUTEROL 3 ML NEB INHALATION PRN ×4 (07:26→19:51)
[2022-07-26 07:58] LABS: Basophils % (A) 0 %; Eosinophils % (A) 0 %; HCT 23.5 % (39.0-53.0); Hypochromasia Moderate; Lymphocytes # (A) 0.2 k/uL (1.0-4.8); Lymphocytes % (A) 2 %; MCH 31.6 pg (25.0-35.0); MCHC 30.8 g/dL (31.0-37.0); MCV 102.7 fL (80.0-100.0); Macrocytosis Slight; Mean Platelet Volume 8.4; Monocytes # (A) 0.4 k/uL (0-1.0); Monocytes % (A) 4 %; Neutrophils # (A) 10.3 k/uL (1.3-7.7); Neutrophils % (A) 94 %; Platelet Count 150 k/uL (150-450); RBC 2.29 m/uL (4.30-5.90); RDW 15.2 % (11.5-15.5)
[2022-07-26 08:05] LABS: Calcium 7.7 mg/dL (8.4-10.2); Magnesium 2.1 mg/dL (1.6-2.3); Phosphorus 4.8 mg/dL (2.5-4.5); Potassium 4.2 mmol/L (3.5-5.1)
[2022-07-26 08:19] LABS: HGB 7.2 gm/dL (13.0-17.5)
[2022-07-26] MEDS: ASPIRIN 81 MG PO SCH (08:21)
[2022-07-26] MEDS: ENOXAPARIN 40 MG/0.4 ML SYRINGE SQ SCH (08:21)
[2022-07-26] MEDS: PANTOPRAZOLE 40 MG/10 ML VIAL IV SCH (08:21)
[2022-07-26] MEDS: METOPROLOL SUCCINATE (ER) 25 MG TAB.ER.24H PO SCH (08:21)
[2022-07-26] MEDS: FAMOTIDINE 20 MG TAB PO SCH (08:21)
[2022-07-26] MEDS: GABAPENTIN 300 MG CAP PO SCH ×3 (08:21→21:04)
[2022-07-26] MEDS: FERROUS SULFATE 325 MG TAB PO SCH (08:21)
[2022-07-26] MEDS: CITALOPRAM HYDROBROMIDE 20 MG TAB PO SCH (08:22)
[2022-07-26] MEDS: allopurinoL 300 MG TAB PO SCH (08:22)
[2022-07-26] MEDS ORDERED: ENOXAPARIN 40 MG/0.4 ML SYRINGE SQ SCH (09:00)
--- NOTE | 2022-07-26 10:21 | P.PN ---
Subjective Progress Note Date: 07/26/22 This is a pleasant 66-year-old male patient with advanced COPD. The patient is auction dependent and the patient has an FEV1 of 34% predicted consistent with severe COPD and the patient has had multiple hospitalization for COPD exacerbation. The patient was in the hospital on 07/11/2022 and at that time he was positive for cold and 19, treated without any major complications and he was discharged home. He came in today with worsening shortness of breath. The shortness of breath rapidly evolving the patient became quite dyspneic and he came into the hospital and the chest x-ray showed extensive consolidation of the left lung mainly in the left upper lobe and lingular segment and some in the le ft lower lobe. Based on that, the patient was immediately placed on a BiPAP at a pressure of 12/6 cm of water with FiO2 of 40%. His current respiratory rate is around 27. He is awake and alert. His generating a tidal volume of 750. CTA of the chest was also done in the emergency that showed no evidence of any pulmonary embolism. There was areas of spiculation in the right upper lobe measuring 15 mm suspicious for malignancy. At the same time, there was diffuse consolidation involving the left lung more so on the left upper lobe and to lesser extent in the left lower lobe. There is also some background emphysema as noted. The patient was already given a dose of Zosyn and dose of vancomycin. He was not on bronchodilators. He is started on steroids. He is still short of breath and is using his abdomen to breathe and is doing some abdominal breathing. He is known to have 50-[id number]-hlhr smoking history and he quit smoking in December 2021. Has rheumatoid arthritis. He has also cardiomyopathy, coronary artery disease, previous coronary stents, previous vascular intervention for p eripheral vascular disease including stenting to his lower extremities and he has had previous orthopedic surgeries. He has also gout, chronic anemia, right hip avascular necrosis. He is oxygen dependent and he typically utilizes oxygen at 4 L/m nasal cannula on an outpatient basis. CAT scan of the chest also showed a small to moderate-sized hiatal hernia. 07/26/2022, the patient remains on a BiPAP. He was briefly taken off the BiPAP this morning through the small bites and immediately following that he was placed back on a BiPAP pressure of 12/5 cm both of his current FiO2 is at 40%. He seems to be slightly more comfortable compared to yesterday although he is still tachypneic even while being on a BiPAP. He is able to generate adequate tidal volumes while on the BiPAP. The chest x-ray showing some limited improvement in the extensive left upper lobe pulmonary infiltrate. I would say that his some interval improvement in the pneumonia. The patient was started on broad-spectrum antibiotics and he is on a combination of Zosyn and Levaquin. The white cell count is 11.0 with a hemoglobin of 7.2 which is about compared to yesterday. No evidence of any GI bleeding. Electrodes are within normal limits. Pro calcitonin level was elevated at 0.9 and the patient remains on a c ombination of bronchodilators and steroids. No other significant events. No altered mentation. No agitation. Objective - Vital Signs Vital signs: Vital Signs Temp 97.6 F 07/26/22 08:00 Pulse 87 07/26/22 09:00 Resp 14 07/26/22 09:00 BP 140/57 07/26/22 09:00 Pulse Ox 91 L 07/26/22 09:00 FiO2 40 07/26/22 08:00 Intake & Output 07/25/22 07/26/22 07/26/22 18:59 06:59 18:59 Intake Total 325 975 535 Output Total 300 950 400 Balance 25 25 135 Weight 58.967 kg 62.8 kg Intake: IV 325 975 75 Magnesium Sulfate-D5w Pmx 100 1 gm In Dextrose/Water 1 100ml.bag @ 100 mls/hr IVPB Q1H [facility] Rx#: [id number] Sodium Chloride 0.9% 1, 225 975 75 000 ml @ 75 mls/hr IV . [id number] [facility] Rx#:[id number] Intake, IV Titration 100 Amount Piperacillin-Tazobactam 3 100 .375 gm In Sodium Chloride 0.9% 100 ml @ 25 mls/hr IVPB Q8HR [facility] Rx# :[id number] Oral 360 Output: Urine 300 950 400 Other: Voiding Method Urinal Urinal Urinal # Voids 0 - Exam GENERAL EXAM: Alert, thin, 66-year-old male patient, on At the pressures of 12/6 cm of water and apply gel 40%. He is in mild to moderate degree of respiratory distress. He is arousable and awake and communicating. History using his abdominal wall for breathing. HEAD: Normocephalic. EYES: Normal reaction of pupils, equal size. NOSE: Clear with pink turbinates. THROAT: No erythema or exudates. NECK: No masses, no JVD. CHEST: No chest wall deformity. LUNGS: Equal air entry with end expiratory wheeze, diminished. CVS: S1 and S2 normal with no audible murmur, regular rhythm. ABDOMEN: No hepatosplenomegaly, normal bowel sounds, no guarding or rigidity. SPINE: No scoliosis or deformity SKIN: No rashes CENTRAL NERVOUS SYSTEM: No focal deficits, tone is normal in all 4 extremities. EXTREMITIES: There is no peripheral edema. No clubbing, no cyanosis. Peripheral pulses are intact. - Labs CBC & Chem 7: 07/26/22 07:35 07/26/22 07:35 Labs: Abnormal Lab Results - Last 24 Hours (Table) 07/25/22 07/25/22 07/25/22 Range/Units 11:37 11:37 11:37 WBC (3.8-10.6) k/uL RBC 2.77 L (4.30-5.90) m/uL Hgb 9.2 L (13.0-17.5) gm/dL Hct 28.3 L (39.0-53.0) % MCV 102.3 H (80.0-100.0) fL MCHC (31.0-37.0) g/dL Neutrophils # 8.1 H (1.3-7.7) k/uL Lymphocytes # 0.3 L (1.0-4.8) k/uL D-Dimer 2.05 H (<0.60) mg/L FEU Sodium 136 L (137-145) mmol/L Potassium 6.4 H* (3.5-5.1) mmol/L Carbon Dioxide 21 L (22-30) mmol/L BUN 44 H (9-20) mg/dL Creatinine 1.55 H (0.66-1.25) mg/dL Glucose 121 H (74-99) mg/dL Calcium (8.4-10.2) mg/dL Phosphorus (2.5-4.5) mg/dL Magnesium 1.4 L (1.6-2.3) mg/dL Procalcitonin (0.02-0.09) ng/mL 07/25/22 07/25/22 07/26/22 Range/Units 13:43 16:55 07:35 WBC 11.0 H (3.8-10.6) k/uL RBC 2.29 L (4.30-5.90) m/uL Hgb 7.2 L D (13.0-17.5) gm/dL Hct 23.5 L (39.0-53.0) % MCV 102.7 H (80.0-100.0) fL MCHC 30.8 L (31.0-37.0) g/dL Neutrophils # 10.3 H (1.3-7.7) k/uL Lymphocytes # 0.2 L (1.0-4.8) k/uL D-Dimer (<0.60) mg/L FEU Sodium (137-145) mmol/L Potassium 5.5 H (3.5-5.1) mmol/L Carbon Dioxide (22-30) mmol/L BUN (9-20) mg/dL Creatinine (0.66-1.25) mg/dL Glucose (74-99) mg/dL Calcium (8.4-10.2) mg/dL Phosphorus (2.5-4.5) mg/dL Magnesium (1.6-2.3) mg/dL Procalcitonin 0.94 H (0.02-0.09) ng/mL 07/26/22 Range/Units 07:35 WBC (3.8-10.6) k/uL RBC (4.30-5.90) m/uL Hgb (13.0-17.5) gm/dL Hct (39.0-53.0) % MCV (80.0-100.0) fL MCHC (31.0-37.0) g/dL Neutrophils # (1.3-7.7) k/uL Lymphocytes # (1.0-4.8) k/uL D-Dimer (<0.60) mg/L FEU Sodium (137-145) mmol/L Potassium (3.5-5.1) mmol/L Carbon Dioxide (22-30) mmol/L BUN 32 H (9-20) mg/dL Creatinine (0.66-1.25) mg/dL Glucose 144 H (74-99) mg/dL Calcium 7.7 L (8.4-10.2) mg/dL Phosphorus 4.8 H (2.5-4.5) mg/dL Magnesium (1.6-2.3) mg/dL Procalcitonin (0.02-0.09) ng/mL Assessment and Plan Plan: Acute left lung pneumonia. The patient extensive consolidation of the left upper lobe, lingular segment in addition to some limited infiltration of the left lower lobe. As such, the patient has a extensive multilobar pneumonia with secondary hypoxic respiratory failure. Rule out possibility of a hospital- acquired pneumonia as the patient hasn't has less frequently for complications related to COPD exacerbation and a most his hospitalization was approximately 2 weeks ago. The patient shows some limited improvement in the left lung pul monary infiltrate/pneumonia and he remains on a BiPAP for now. He remains on broad-spectrum antibiotics. Follow calcitonin level is slightly elevated. Not completely ready to come off the BiPAP for now. Acute hypoxic respiratory failure secondary to above, currently on BiPAP at a pressure of 12/6 cm of water with FiO2 of 40% Acute COPD exacerbation secondary to above. Acute kidney injury secondary to above Acute hyperkalemia, improved and the potassium level fell to 4.2 Chronic Oxygen dependent chronic obstructive pulmonary disease with FEV1 value 34% of predicted Recent history of COVID-19 infection, incidental finding, vaccinated and boosted 2 Coronary artery disease with previous stent placement Peripheral vascular disease with his PT PA/stent placement 50 year smoking history however quit in December 2021 Hypertension Hyperlipidemia Rheumatoid arthritis Cardiomyopathy Multiple orthopedic surgeries Plan Continue BiPAP support of the same pressures of 12/6 cm of water with FiO2 40% Continue combination of Zosyn and vancomycin Check pro calcitonin level is elevated Sputum Gram stain and culture and blood culture is pending DuoNeb neb treatment 4 times a day. Performance on Pulmicort neb treatments twice a day IV Solu-Medrol 60 mg every 6 hours Potassium is normalized Normal saline 75 mL's an hour. Heparin subcu for DVT prophylaxis IV Protonix Keep in ICU and will follow.
[2022-07-26] MEDS: VANCOMYCIN 1,250 MG in SODIUM CHLORIDE 0.9% 250 ML IVPB SCH (11:33)
[2022-07-26] MEDS ORDERED: VANCOMYCIN 1,000 MG in SODIUM CHLORIDE 0.9% 250 ML IVPB SCH (12:00)
[2022-07-26] MEDS: ATORVASTATIN 80 MG TAB PO SCH (21:04)
[2022-07-27] MEDS: VANCOMYCIN 1,250 MG in SODIUM CHLORIDE 0.9% 250 ML IVPB SCH ×2 (03:40→18:07)
[2022-07-27 04:24] LABS: Basophils % (A) 0 %; Eosinophils % (A) 0 %; HCT 20.2 % (39.0-53.0); Hypochromasia Moderate; Lymphocytes # (A) 0.2 k/uL (1.0-4.8); Lymphocytes % (A) 3 %; MCH 34.7 pg (25.0-35.0); MCHC 34.3 g/dL (31.0-37.0); MCV 101.3 fL (80.0-100.0); Macrocytosis Slight; Mean Platelet Volume 8.3; Monocytes # (A) 0.3 k/uL (0-1.0); Monocytes % (A) 5 %; Neutrophils # (A) 6.1 k/uL (1.3-7.7); Neutrophils % (A) 92 %; Platelet Count 121 k/uL (150-450); RBC 1.99 m/uL (4.30-5.90); RDW 14.9 % (11.5-15.5); WBC 6.7 k/uL (3.8-10.6)
[2022-07-27 04:30] LABS: African American GFR (CKD) >90 (>60 ml/min/1.73 sqM); Anion Gap 8 mmol/L; Blood Urea Nitrogen 26 mg/dL (9-20); Calcium 7.6 mg/dL (8.4-10.2); Carbon Dioxide 25 mmol/L (22-30); Chloride 106 mmol/L (98-107); Glucose 154 mg/dL (74-99); Non-African American GFR(CKD) >90 (>60 ml/min/1.73 sqM); Potassium 3.6 mmol/L (3.5-5.1); Sodium 139 mmol/L (137-145)
[2022-07-27 04:51] LABS: HGB 6.9 gm/dL (13.0-17.5)
[2022-07-27] MEDS: MAGNESIUM SULFATE-D5W PMX 1 GM in DEXTROSE/WATER 1 100ML.BAG IVPB SCH ×2 (04:55→05:59)
[2022-07-27] MEDS: POTASSIUM CHLORIDE 10 MEQ in WATER FOR INJECTION 1 100ML.BAG IVPB SCH ×2 (04:56→05:59)
[2022-07-27] MEDS: methylPREDNISolone SOD SUCCI 125 MG/2 ML VIAL IV SCH ×3 (05:55→18:07)
[2022-07-27] MEDS: BUDESONIDE 0.5 MG/2 ML NEBU INHALATION SCH ×2 (07:52→20:07)
[2022-07-27] MEDS: FORMOTEROL FUMARATE 20 MCG/2 ML NEBU INHALATION SCH ×2 (07:52→20:06)
[2022-07-27] MEDS: IPRATROPIUM-ALBUTEROL 3 ML NEB INHALATION PRN ×4 (07:52→20:07)
--- NOTE | 2022-07-27 08:33 | P.PN ---
Subjective Progress Note Date: 07/27/22 This is a pleasant 66-year-old male patient with advanced COPD. The patient is auction dependent and the patient has an FEV1 of 34% predicted consistent with severe COPD and the patient has had multiple hospitalization for COPD exacerbation. The patient was in the hospital on 07/11/2022 and at that time he was positive for cold and 19, treated without any major complications and he was discharged home. He came in today with worsening shortness of breath. The shortness of breath rapidly evolving the patient became quite dyspneic and he came into the hospital and the chest x-ray showed extensive consolidation of the left lung mainly in the left upper lobe and lingular segment and some in the le ft lower lobe. Based on that, the patient was immediately placed on a BiPAP at a pressure of 12/6 cm of water with FiO2 of 40%. His current respiratory rate is around 27. He is awake and alert. His generating a tidal volume of 750. CTA of the chest was also done in the emergency that showed no evidence of any pulmonary embolism. There was areas of spiculation in the right upper lobe measuring 15 mm suspicious for malignancy. At the same time, there was diffuse consolidation involving the left lung more so on the left upper lobe and to lesser extent in the left lower lobe. There is also some background emphysema as noted. The patient was already given a dose of Zosyn and dose of vancomycin. He was not on bronchodilators. He is started on steroids. He is still short of breath and is using his abdomen to breathe and is doing some abdominal breathing. He is known to have [id number] smoking history and he quit smoking in December 2021. Has rheumatoid arthritis. He has also cardiomyopathy, coronary artery disease, previous coronary stents, previous vascular intervention for p eripheral vascular disease including stenting to his lower extremities and he has had previous orthopedic surgeries. He has also gout, chronic anemia, right hip avascular necrosis. He is oxygen dependent and he typically utilizes oxygen at 4 L/m nasal cannula on an outpatient basis. CAT scan of the chest also showed a small to moderate-sized hiatal hernia. 07/26/2022, the patient remains on a BiPAP. He was briefly taken off the BiPAP this morning through the small bites and immediately following that he was placed back on a BiPAP pressure of 12/5 cm both of his current FiO2 is at 40%. He seems to be slightly more comfortable compared to yesterday although he is still tachypneic even while being on a BiPAP. He is able to generate adequate tidal volumes while on the BiPAP. The chest x-ray showing some limited improvement in the extensive left upper lobe pulmonary infiltrate. I would say that his some interval improvement in the pneumonia. The patient was started on broad-spectrum antibiotics and he is on a combination of Zosyn and Levaquin. The white cell count is 11.0 with a hemoglobin of 7.2 which is about compared to yesterday. No evidence of any GI bleeding. Electrodes are within normal limits. Pro calcitonin level was elevated at 0.9 and the patient remains on a c ombination of bronchodilators and steroids. No other significant events. No altered mentation. No agitation. 07/26/2022, the patient is being seen for a follow-up. The patient's is feeling better. After spending the entire night on a BiPAP at a pressure clover 6 cm the fourth, the patient was placed on oxygen at 5 L nasal cannula. Doing well. Less shortness of breath. There are entry is improved bilaterally. Less bronchospastic and we compared to yesterday. Pneumonia in the left upper lobe was already improving. There was excellent at 6.7. Hemoglobin dropped down to 6.9 and there is no evidence of any acute bleeding. The patient will be given a unit of packed RBC. The rest of electrolytes are old stable for now, sodiums of 139, BUN is 26 and a creatinine of 0.7. As far as cultures, blood cultures were negative. The patient is being treated for possible hospital-acquired pneumonia and he is on a combination of Zosyn and vanco . No altered mentation. No signs of any CO2 narcosis. No encephalopathy at this point in time. He is also on vancomycin. Clinically improving. A repeat chest cystoscopy pending and this needs to be done on a daily basis. Objective - Vital Signs Vital signs: Vital Signs Temp 97.5 F L 07/27/22 04:00 Pulse 116 H 07/27/22 08:17 Resp 30 H 07/27/22 07:00 BP 127/68 07/27/22 07:00 Pulse Ox 93 L 07/27/22 07:00 FiO2 35 07/27/22 04:00 Intake & Output 10/07/27/22 07/27/22 18:59 06:59 18:59 Intake Total 1880 1775 275 Output Total 700 800 350 Balance 1180 975 -75 Weight 66.5 kg Intake: IV 75 1200 275 Magnesium Sulfate-D5w Pmx 100 100 1 gm In Dextrose/Water 1 100ml.bag @ 100 mls/hr IVPB Q1H [facility] Rx#: [id number] Potassium Chloride 10 meq 100 100 In Water For Injection 1 100ml.bag @ 100 mls/hr IVPB Q1H [facility] Rx#: [id number] Sodium Chloride 0.9% 1, 75 750 75 000 ml @ 75 mls/hr IV . [id number] [facility] Rx#:[id number] Vancomycin 1,250 mg In 250 Sodium Chloride 0.9% 250 ml @ 125 mls/hr IVPB Q16H [facility] Rx#:[id number] Intake, IV Titration 725 75 Amount Piperacillin-Tazobactam 3 100 .375 gm In Sodium Chloride 0.9% 100 ml @ 25 mls/hr IVPB Q8HR [facility] Rx# :[id number] Sodium Chloride 0.9% 1, 375 75 000 ml @ 75 mls/hr IV . [id number] [facility] Rx#:[id number] Vancomycin 1,250 mg In 250 Sodium Chloride 0.9% 250 ml @ 125 mls/hr IVPB Q16H [facility] Rx#:[id number] Oral 1080 500 Output: Urine 700 800 350 Other: Voiding Method Urinal Urinal - Exam GENERAL EXAM: Alert, thin, 66-year-old male patient, on At the pressures of 12/6 cm of water and apply gel 40% overnight and the patient is currently on 5 L O2 nasal cannula and he is less respiratory distress. No accessory muscle use and no abdominal breathing on today's evaluation HEAD: Normocephalic. EYES: Normal reaction of pupils, equal size. NOSE: Clear with pink turbinates. THROAT: No erythema or exudates. NECK: No masses, no JVD. CHEST: No chest wall deformity. LUNGS: Equal air entry with end expiratory wheeze, diminished. CVS: S1 and S2 normal with no audible murmur, regular rhythm. ABDOMEN: No hepatosplenomegaly, normal bowel sounds, no guarding or rigidity. SPINE: No scoliosis or deformity SKIN: No rashes CENTRAL NERVOUS SYSTEM: No focal deficits, tone is normal in all 4 extremities. EXTREMITIES: There is no peripheral edema. No clubbing, no cyanosis. Peripheral pulses are intact. - Labs CBC & Chem 7: 07/27/22 04:03 07/27/22 04:03 Labs: Abnormal Lab Results - Last 24 Hours (Table) 07/27/22 07/27/22 Range/Units 04:03 04:03 RBC 1.99 L (4.30-5.90) m/uL Hgb 6.9 L* (13.0-17.5) gm/dL Hct 20.2 L (39.0-53.0) % MCV 101.3 H (80.0-100.0) fL Plt Count 121 L (150-450) k/uL Lymphocytes # 0.2 L (1.0-4.8) k/uL BUN 26 H (9-20) mg/dL Glucose 154 H (74-99) mg/dL Calcium 7.6 L (8.4-10.2) mg/dL Microbiology - Last 24 Hours (Table) 07/25/22 11:40 Blood Culture - Preliminary Blood No Growth after 24 hours 07/25/22 11:37 Blood Culture - Preliminary Blood No Growth after 24 hours Assessment and Plan Plan: Acute left lung pneumonia. The patient extensive consolidation of the left upper lobe, lingular segment in addition to some limited infiltration of the left lower lobe. As such, the patient has a extensive multilobar pneumonia with secondary hypoxic respiratory failure. Rule out possibility of a hospital- acquired pneumonia as the patient hasn't has less frequently for complications related to COPD exacerbation and a most his hospitalization was approximately 2 weeks ago. Clinically improved and the patient was taken off the BiPAP on 5 L O2 nasal cannula, pneumonia is improving and the patient is currently on examination of Zosyn and vancomycin Acute hypoxic respiratory failure secondary to above, currently off BiPAP at a pressure of 12/6 cm of water with FiO2 of 40%, currently on 5 L O2 nasal cannula Acute COPD exacerbation secondary to above. Acute kidney injury secondary to above Acute hyperkalemia, improved and the potassium level fell to 4.2 Chronic Oxygen dependent chronic obstructive pulmonary disease with FEV1 value 34% of predicted Recent history of COVID-19 infection, incidental finding, vaccinated and boosted 2 Coronary artery disease with previous stent placement Peripheral vascular disease with his PT PA/stent placement 50 year smoking history however quit in December 2021 Hypertension Hyperlipidemia Rheumatoid arthritis Cardiomyopathy Multiple orthopedic surgeries Acute on chronic drop in hemoglobin/anemia. We'll give a unit of packed RBC Plan Continue BiPAP support of the same pressures of 12/6 cm of water with FiO2 40% overnight and for now the patient will be kept on 5 L Continue combination of Zosyn and vancomycin Check pro calcitonin level is elevated Sputum Gram stain and culture and blood culture is pending, blood cultures were negative DuoNeb neb treatment 4 times a day. Performance on Pulmicort neb treatments twice a day IV Solu-Medrol 60 mg every 6 hours Advance diet IV fluids to KVO Given the fact RBC Heparin subcu for DVT prophylaxis IV Protonix Check serum iron studies Keep in ICU and will follow. Time with Patient: Greater than 30
--- NOTE | 2022-07-27 09:01 | XR ---
EXAMINATION TYPE: XR chest 1V portable DATE OF EXAM: 07/27/2022 COMPARISON: Chest x-ray dated 07/26/2022 HISTORY: Pneumonia, shortness of breath TECHNIQUE: Single frontal view of the chest is obtained. FINDINGS: Gas distended stomach or colon present beneath the left hemidiaphragm. Patchy density with in the left lung shows a similar appearance. No evident pneumothorax. No sizable effusion. There is u nderlying emphysema. Cardiac mediastinal silhouette is stable. Technique is apical lordotic. IMPRESSION: Correlate for pneumonia. Follow-up suggested. Additional findings above.
[2022-07-27] MEDS: PIPERACILLIN-TAZOBACTAM 3.375 GM in SODIUM CHLORIDE 0.9% 100 ML IVPB SCH ×2 (09:53→16:00)
[2022-07-27] MEDS: SODIUM CHLORIDE 0.9% 1,000 ML IV SCH (09:53)
[2022-07-27] MEDS: ASPIRIN 81 MG PO SCH (09:54)
[2022-07-27] MEDS: allopurinoL 300 MG TAB PO SCH (09:54)
[2022-07-27] MEDS: ENOXAPARIN 40 MG/0.4 ML SYRINGE SQ SCH (09:54)
[2022-07-27] MEDS: PANTOPRAZOLE 40 MG/10 ML VIAL IV SCH (09:54)
[2022-07-27] MEDS: GABAPENTIN 300 MG CAP PO SCH ×3 (09:55→20:16)
[2022-07-27] MEDS: FERROUS SULFATE 325 MG TAB PO SCH (09:55)
[2022-07-27] MEDS: FAMOTIDINE 20 MG TAB PO SCH (09:55)
[2022-07-27] MEDS: ALPRAZolam 0.5 MG TAB PO PRN ×2 (09:55→20:19)
[2022-07-27] MEDS: METOPROLOL SUCCINATE (ER) 25 MG TAB.ER.24H PO SCH (09:55)
[2022-07-27] MEDS: CITALOPRAM HYDROBROMIDE 20 MG TAB PO SCH (09:55)
[2022-07-27] MEDS: traMADol 50 MG TAB PO PRN (11:42)
[2022-07-27] MEDS: guaiFENesin 600 MG TABLET.ER PO SCH ×2 (12:52→20:16)
[2022-07-27] MEDS ORDERED: SODIUM CHLORIDE 0.65% NASAL SPRAY 44 ML BTL NASAL PRN (13:54)
[2022-07-27] MEDS: ACETAMINOPHEN TAB 325 MG TAB PO PRN (16:00)
[2022-07-27 16:21] LABS: % Iron Saturation 25.65 (15.00-50.00)
[2022-07-27 18:27] LABS: Anisocytosis Slight; Basophils % (A) 0 %; Eosinophils % (A) 0 %; HCT 27.9 % (39.0-53.0); Hypochromasia Moderate; Lymphocytes # (A) 0.2 k/uL (1.0-4.8); Lymphocytes % (A) 2 %; MCH 31.9 pg (25.0-35.0); MCV 99.6 fL (80.0-100.0); Macrocytosis Slight; Mean Platelet Volume 8.8; Monocytes # (A) 0.5 k/uL (0-1.0); Monocytes % (A) 5 %; Neutrophils # (A) 9.8 k/uL (1.3-7.7); Neutrophils % (A) 93 %; Platelet Count 156 k/uL (150-450); RDW 16.7 % (11.5-15.5); WBC 10.6 k/uL (3.8-10.6)
[2022-07-27 18:33] LABS: HGB 8.9 gm/dL (13.0-17.5)
[2022-07-27] MEDS: ATORVASTATIN 80 MG TAB PO SCH (20:16)
[2022-07-27] MEDS: DONEPEZIL 5 MG TAB PO SCH (20:16)
[2022-07-27] MEDS: hydrOXYzine HCL 25 MG TAB PO SCH (20:16)
--- NOTE | 2022-07-27 22:40 | P.PN ---
Subjective Progress Note Date: 07/26/22 Patient is a 66-year-old male with a known history of cardiomyopathy, chronic elevated left diaphragm, on home oxygen at 4 L by nasal cannula, history of DVT of both legs, chronic lower back pain, gout, coronary artery disease history of stent placement, COPD, hypertension, hyperlipidemia and other multiple medical problems and rheumatoid arthritis presents to ER with complaints of worsening shortness of breath since yesterday. Patient was hypoxic with pulse ox in 80s when EMS arrived and was placed on CPAP. Currently patient is on BiPAP while in the ER. Patient denied any complaints of cough or sputum production. Patient does complain of left lower chest with deep breathing. No nausea vomiting abdominal pain or diarrhea. Denied any dysuria or hematuria. Patient was recently admitted to hospital due to acute COPD exacerbation and acute COVID-19 infection. Chest x-ray at that time showed no acute cardiopulmonary process. Patient did improve clinically and was discharged home on 07/24/2022. On admission patient was hypoxic, tachycardic and T-max 100.1.. Chest x-ray showed new left upper lobe infiltrate correlate for pneumonia. Some mild streaky atelectasis within the left lower lobe field. Correlate for atelectasis. Follow-up examination to clearing are recommended. Patient was found to have elevated D-dimer level. CT angio of the chest showed no evidence of PE. 15.5 cm spiculated mass right upper lobe highly suspicious for malignancy. 3 large scattered diffuse areas of partially consolidative and interstitial opacity in the left upper lobe and lower lobes consistent with acute infectious process/pneumonia. A few scattered tiny sclerotic densities in the thoracic spine metastases not excluded and bone scan useful for further evaluation. Large hiatal hernia No no mediastinal or hilar or axillary adenopathy. Laboratory data showed WBC 8.7, hemoglobin 9.1 platelets 178 MCV 102.3 D-dimer is 2.0 point Sodium 136 potassium 6.4 chloride 104 bicarb is 21 BUN 44 and creatinine 1.55 and blood sugar is 121 Magnesium 1.4 proBNP 344 Coronavirus PCR not detected. 07/26/2022 Patient is in MICU and is on BiPAP. Seems to be comfortable compared to yesterday. Chest x-ray showed suspect improvement in pneumonia. Patient with known right upper lobe lung nodule, underlying emphysema. Laboratory test showed WBC 11.0 hemoglobin 7.1 and platelets 150 BUN 32 creatinine 1.04 and calcium 7.7 Patient is being continued on broad-spectrum antibiotics and IV steroids and duo nebs. Pulmonary is on board. Current medications reviewed. Objective - Vital Signs Vital signs: Vital Signs Temp 97.6 F 07/26/22 08:00 Pulse 93 07/26/22 13:00 Resp 31 H 07/26/22 13:00 BP 141/61 07/26/22 13:00 Pulse Ox 94 L 07/26/22 13:00 FiO2 40 07/26/22 11:31 Intake & Output 07/25/22 07/26/22 07/26/22 18:59 06:59 18:59 Intake Total 200 578 6880 Output Total 300 950 400 Balance 25 25 745 Weight 58.967 kg 62.8 kg Intake: IV 325 975 75 Magnesium Sulfate-D5w Pmx 100 1 gm In Dextrose/Water 1 100ml.bag @ 100 mls/hr IVPB Q1H [facility] Rx#: [id number] Sodium Chloride 0.9% 1, 225 975 75 000 ml @ 75 mls/hr IV . [id number] [facility] Rx#:[id number] Intake, IV Titration 350 Amount Piperacillin-Tazobactam 3 100 .375 gm In Sodium Chloride 0.9% 100 ml @ 25 mls/hr IVPB Q8HR [facility] Rx# :[id number] Vancomycin 1,250 mg In 250 Sodium Chloride 0.9% 250 ml @ 125 mls/hr IVPB Q16H [facility] Rx#:[id number] Oral 720 Output: Urine 300 950 400 Other: Voiding Method Urinal Urinal Urinal # Voids 0 - Exam PHYSICAL EXAMINATION: Patient is lying in the bed comfortably, no acute distress, awake alert and oriented.. On BiPAP currently HEENT: Normocephalic. Neck is supple. Pupils reactive. Nostrils clear. Oral cavity is moist. Neck reveals no JVD, carotid bruits, or thyromegaly. CHEST EXAMINATION: Trachea is central. Symmetrical expansion. Scattered rhonchi. Minimal expiratory wheezing. Nonlabored.. CARDIAC: Normal S1, S2 with no gallops. No murmurs ABDOMEN: Soft. Bowel sounds present. Nontender. No organomegaly. No abdominal bruits. Extremities: reveal no edema. No clubbing or cyanosis Neurologically awake, alert, oriented x3 with well-coordinated movements. No focal deficits noted Skin: No rash or skin lesions. Psychiatric: Coperative. Nonsuicidal, Musculoskeletal: No joint swelling or deformity. Normal range of motion. - Labs CBC & Chem 7: 07/27/22 17:46 07/27/22 04:03 Labs: Abnormal Lab Results - Last 24 Hours (Table) 07/25/22 07/25/22 07/26/22 Range/Units 13:43 16:55 07:35 WBC 11.0 H (3.8-10.6) k/uL RBC 2.29 L (4.30-5.90) m/uL Hgb 7.2 L D (13.0-17.5) gm/dL Hct 23.5 L (39.0-53.0) % MCV 102.7 H (80.0-100.0) fL MCHC 30.8 L (31.0-37.0) g/dL Neutrophils # 10.3 H (1.3-7.7) k/uL Lymphocytes # 0.2 L (1.0-4.8) k/uL Potassium 5.5 H (3.5-5.1) mmol/L BUN (9-20) mg/dL Glucose (74-99) mg/dL Calcium (8.4-10.2) mg/dL Phosphorus (2.5-4.5) mg/dL Procalcitonin 0.94 H (0.02-0.09) ng/mL 07/26/22 Range/Units 07:35 WBC (3.8-10.6) k/uL RBC (4.30-5.90) m/uL Hgb (13.0-17.5) gm/dL Hct (39.0-53.0) % MCV (80.0-100.0) fL MCHC (31.0-37.0) g/dL Neutrophils # (1.3-7.7) k/uL Lymphocytes # (1.0-4.8) k/uL Potassium (3.5-5.1) mmol/L BUN 32 H (9-20) mg/dL Glucose 144 H (74-99) mg/dL Calcium 7.7 L (8.4-10.2) mg/dL Phosphorus 4.8 H (2.5-4.5) mg/dL Procalcitonin (0.02-0.09) ng/mL Microbiology - Last 24 Hours (Table) 07/25/22 11:40 Blood Culture - Preliminary Blood No Growth after 24 hours 07/25/22 11:37 Blood Culture - Preliminary Blood No Growth after 24 hours Assessment and Plan Assessment: Acute hypoxic respiratory failure secondary to left upper lobe pneumonia Acute left upper lobe pneumonia Large 15.5 cm spiculated mass right upper lobe suspicious for malignancy. Acute COPD exacerbation Chronic hypoxic respiratory failure on 4 L oxygen via nasal cannula Acute kidney injury likely prerenal Hyperkalemia secondary acute kidney injury Recent COVID-19 infection. Discharged home on 07/14/2022. COVID is tested negative now. History of DVT Hypertension Hyperlipidemia Osteoarthritis Rheumatoid arthritis Coronary artery disease with history of stent placement Ischemic cardiomyopathy ejection fraction 30 to 35% in 2019 Chronically elevated left hemidiaphragm Chronic low back pain and bilateral hip pain Large hiatal hernia DVT prophylaxis Plan: Patient will be continued on BiPAP. Gentle IV hydration. Continue with antibiotics in the form of vancomycin and Zosyn with recent hospital admission. Continue with IV steroids and duo nebs and pulmonary is on board. CT angio of the chest showed spiculated mass highly suspicious for malignancy and also suspicious for metastatic bone mets.. Bone scan and possible PET scan as an outpatient versus biopsy.. Continue with GI and DVT prophylaxis and follow-up closely Prognosis is poor at this time. Continue to follow closely. Time with Patient: Greater than 30
--- NOTE | 2022-07-27 22:42 | P.PN ---
Subjective Progress Note Date: 07/27/22 Patient is a 66-year-old male with a known history of cardiomyopathy, chronic elevated left diaphragm, on home oxygen at 4 L by nasal cannula, history of DVT of both legs, chronic lower back pain, gout, coronary artery disease history of stent placement, COPD, hypertension, hyperlipidemia and other multiple medical problems and rheumatoid arthritis presents to ER with complaints of worsening shortness of breath since yesterday. Patient was hypoxic with pulse ox in 80s when EMS arrived and was placed on CPAP. Currently patient is on BiPAP while in the ER. Patient denied any complaints of cough or sputum production. Patient does complain of left lower chest with deep breathing. No nausea vomiting abdominal pain or diarrhea. Denied any dysuria or hematuria. Patient was recently admitted to hospital due to acute COPD exacerbation and acute COVID-19 infection. Chest x-ray at that time showed no acute cardiopulmonary process. Patient did improve clinically and was discharged home on 07/24/2022. On admission patient was hypoxic, tachycardic and T-max 100.1.. Chest x-ray showed new left upper lobe infiltrate correlate for pneumonia. Some mild streaky atelectasis within the left lower lobe field. Correlate for atelectasis. Follow-up examination to clearing are recommended. Patient was found to have elevated D-dimer level. CT angio of the chest showed no evidence of PE. 15.5 cm spiculated mass right upper lobe highly suspicious for malignancy. 3 large scattered diffuse areas of partially consolidative and interstitial opacity in the left upper lobe and lower lobes consistent with acute infectious process/pneumonia. A few scattered tiny sclerotic densities in the thoracic spine metastases not excluded and bone scan useful for further evaluation. Large hiatal hernia No no mediastinal or hilar or axillary adenopathy. Laboratory data showed WBC 8.7, hemoglobin 9.1 platelets 178 MCV 102.3 D-dimer is 2.0 point Sodium 136 potassium 6.4 chloride 104 bicarb is 21 BUN 44 and creatinine 1.55 and blood sugar is 121 Magnesium 1.4 proBNP 344 Coronavirus PCR not detected. 07/26/2022 Patient is in MICU and is on BiPAP. Seems to be comfortable compared to yesterday. Chest x-ray showed suspect improvement in pneumonia. Patient with known right upper lobe lung nodule, underlying emphysema. Laboratory test showed WBC 11.0 hemoglobin 7.1 and platelets 150 BUN 32 creatinine 1.04 and calcium 7.7 Patient is being continued on broad-spectrum antibiotics and IV steroids and duo nebs. Pulmonary is on board. 07/27/2022 Patient is in MICU. Currently transitioning to nasal cannula oxygen. At 5 L via nasal cannula. Patient is awake alert and oriented. No complaints of chest pain. Breathing status is better. No nausea vomiting abdominal pain or diarrhea. No fever no chills. Blood cultures have been negative. Patient is being continued on antibiotics in the form of vancomycin and Zosyn. Laboratory data showed WBC 6.7 hemoglobin dropped down to 6.9 and is being tra nsfused with 1 unit of PRBC Platelets 121 Sodium 139 potassium 3.6 BUN 26 and creatinine 0.77 and calcium 7.6. Current medications reviewed. Objective - Vital Signs Vital signs: Vital Signs Temp 97.5 F L 07/27/22 15:53 Pulse 82 07/27/22 16:27 Resp 28 H 07/27/22 15:53 BP 168/76 07/27/22 15:53 Pulse Ox 97 07/27/22 15:53 FiO2 35 07/27/22 04:00 Intake & Output 07/26/22 07/27/22 07/27/22 18:59 06:59 18:59 Intake Total 1880 1775 835 Output Total 700 800 600 Balance 1180 975 235 Weight 66.5 kg Intake: IV 75 1200 525 Magnesium Sulfate-D5w Pmx 100 100 1 gm In Dextrose/Water 1 100ml.bag @ 100 mls/hr IVPB Q1H [facility] Rx#: [id number] Piperacillin-Tazobactam 3 100 .375 gm In Sodium Chloride 0.9% 100 ml @ 25 mls/hr IVPB Q8HR [facility] Rx# :[id number] Potassium Chloride 10 meq 100 100 In Water For Injection 1 100ml.bag @ 100 mls/hr IVPB Q1H [facility] Rx#: [id number] Sodium Chloride 0.9% 1, 75 750 225 000 ml @ 20 mls/hr IV . Q24H [facility] Rx#:[id number] Vancomycin 1,250 mg In 250 Sodium Chloride 0.9% 250 ml @ 125 mls/hr IVPB Q16H [facility] Rx#:[id number] Intake, IV Titration 725 75 Amount Piperacillin-Tazobactam 3 100 .375 gm In Sodium Chloride 0.9% 100 ml @ 25 mls/hr IVPB Q8HR [facility] Rx# :[id number] Sodium Chloride 0.9% 1, 375 75 000 ml @ 20 mls/hr IV . Q24H [facility] Rx#:[id number] Vancomycin 1,250 mg In 250 Sodium Chloride 0.9% 250 ml @ 125 mls/hr IVPB Q16H [facility] Rx#:[id number] Oral 1080 500 Blood Product 310 Rc As-1 Unit 310 [id number] Output: Urine 700 800 600 Other: Voiding Method Urinal Urinal Urinal # Voids 1 # Bowel Movements 1 - Exam PHYSICAL EXAMINATION: Patient is lying in the bed comfortably, no acute distress, awake alert and oriented.. HEENT: Normocephalic. Neck is supple. Pupils reactive. Nostrils clear. Oral cavity is moist. Neck reveals no JVD, carotid bruits, or thyromegaly. CHEST EXAMINATION: Trachea is central. Symmetrical expansion. Scattered rhonchi. Minimal expiratory wheezing. Nonlabored.. CARDIAC: Normal S1, S2 with no gallops. No murmurs ABDOMEN: Soft. Bowel sounds present. Nontender. No organomegaly. No abdominal bruits. Extremities: reveal no edema. No clubbing or cyanosis Neurologically awake, alert, oriented x3 with well-coordinated movements. No focal deficits noted Skin: No rash or skin lesions. Psychiatric: Coperative. Nonsuicidal, Musculoskeletal: No joint swelling or deformity. Normal range of motion. - Labs CBC & Chem 7: 07/27/22 17:46 07/27/22 04:03 Labs: Abnormal Lab Results - Last 24 Hours (Table) 07/27/22 07/27/22 07/27/22 Range/Units 04:03 04:03 09:44 RBC 1.99 L (4.30-5.90) m/uL Hgb 6.9 L* (13.0-17.5) gm/dL Hct 20.2 L (39.0-53.0) % MCV 101.3 H (80.0-100.0) fL Plt Count 121 L (150-450) k/uL Lymphocytes # 0.2 L (1.0-4.8) k/uL BUN 26 H (9-20) mg/dL Glucose 154 H (74-99) mg/dL Calcium 7.6 L (8.4-10.2) mg/dL Transferrin (204.0-354.0) mg/dL Crossmatch See Detail 07/27/22 Range/Units 09:44 RBC (4.30-5.90) m/uL Hgb (13.0-17.5) gm/dL Hct (39.0-53.0) % MCV (80.0-100.0) fL Plt Count (150-450) k/uL Lymphocytes # (1.0-4.8) k/uL BUN (9-20) mg/dL Glucose (74-99) mg/dL Calcium (8.4-10.2) mg/dL Transferrin 186.0 L (204.0-354.0) mg/dL Crossmatch Microbiology - Last 24 Hours (Table) 07/25/22 11:40 Blood Culture - Preliminary Blood No Growth after 48 hours 07/25/22 11:37 Blood Culture - Preliminary Blood No Growth after 48 hours Assessment and Plan Assessment: Acute hypoxic respiratory failure secondary to left upper lobe pneumonia Acute left upper lobe pneumonia. Hospital-acquired. Acute metabolic encephalopathy improved now. Large 15.5 cm spiculated mass right upper lobe suspicious for malignancy. Acute COPD exacerbation Chronic hypoxic respiratory failure on 4 L oxygen via nasal cannula Acute kidney injury likely prerenal Hyperkalemia secondary acute kidney injury Recent COVID-19 infection. Discharged home on 07/14/2022. COVID is tested negative now. History of DVT Hypertension Hyperlipidemia Osteoarthritis Rheumatoid arthritis Coronary artery disease with history of stent placement Ischemic cardiomyopathy ejection fraction 30 to 35% in 2019 Chronically elevated left hemidiaphragm Chronic low back pain and bilateral hip pain Large hiatal hernia DVT prophylaxis Plan: Patient is off BiPAP. 5L NC. Continue with antibiotics in the form of vancomycin and Zosyn with recent hospital admission. Continue with IV steroids and duo nebs and pulmonary is on board. CT angio of the chest showed spiculated mass highly suspicious for malignancy and also suspicious for metastatic bone mets.. Bone scan and possible PET scan as an outpatient versus biopsy.. Continue with GI and DVT prophylaxis and follow-up closely Prognosis is poor at this time. Continue to follow closely. Time with Patient: Greater than 30
[2022-07-28] MEDS: PIPERACILLIN-TAZOBACTAM 3.375 GM in SODIUM CHLORIDE 0.9% 100 ML IVPB SCH ×4 (00:04→23:58)
[2022-07-28] MEDS: methylPREDNISolone SOD SUCCI 125 MG/2 ML VIAL IV SCH ×5 (00:05→23:59)
[2022-07-28] MEDS: IPRATROPIUM-ALBUTEROL 3 ML NEB INHALATION PRN ×2 (03:11→20:26)
[2022-07-28 04:34] LABS: African American GFR (CKD) >90 (>60 ml/min/1.73 sqM); Anion Gap 10 mmol/L; Blood Urea Nitrogen 22 mg/dL (9-20); Calcium 8.1 mg/dL (8.4-10.2); Carbon Dioxide 23 mmol/L (22-30); Chloride 107 mmol/L (98-107); Glucose 148 mg/dL (74-99); Magnesium 1.9 mg/dL (1.6-2.3); Non-African American GFR(CKD) >90 (>60 ml/min/1.73 sqM); Potassium 3.4 mmol/L (3.5-5.1); Sodium 140 mmol/L (137-145)
[2022-07-28 04:44] LABS: Anisocytosis Slight; Basophils % (A) 0 %; Eosinophils % (A) 0 %; HCT 25.1 % (39.0-53.0); HGB 8.1 gm/dL (13.0-17.5); Hypochromasia Slight; Lymphocytes # (A) 0.2 k/uL (1.0-4.8); Lymphocytes % (A) 3 %; MCH 31.4 pg (25.0-35.0); MCHC 32.2 g/dL (31.0-37.0); MCV 97.5 fL (80.0-100.0); Macrocytosis Slight; Mean Platelet Volume 8.7; Monocytes # (A) 0.3 k/uL (0-1.0); Monocytes % (A) 5 %; Neutrophils # (A) 6.3 k/uL (1.3-7.7); Neutrophils % (A) 91 %; Platelet Count 133 k/uL (150-450); RBC 2.58 m/uL (4.30-5.90); RDW 17.1 % (11.5-15.5); WBC 6.8 k/uL (3.8-10.6)
[2022-07-28] MEDS: VANCOMYCIN 1,250 MG in SODIUM CHLORIDE 0.9% 250 ML IVPB SCH ×2 (06:41→17:00)
[2022-07-28] MEDS ORDERED: Potassium Replacement Protocol 1 EACH MISC MISCELLANE PRN (06:49)
--- NOTE | 2022-07-28 07:09 | XR ---
EXAMINATION TYPE: XR chest 1V portable DATE OF EXAM: 07/28/2022 5:41 AM COMPARISON: Chest radiographs from 07/27/2022. TECHNIQUE: XR chest 1V portable Frontal view of the chest. CLINICAL INDICATION:Male, 66 years old with history of pna; FINDINGS: Patient is rotated which limits evaluation. Lungs/Pleura: No pneumothorax pleural effusion. Similar patchy airspace opacities within the left marcos g. Underlying emphysematous changes. Pulmonary vascularity: Unremarkable. Heart/mediastinum: Cardiomediastinal silhouette is stable. Musculoskeletal: No acute osseous pathology. IMPRESSION: 1. Similar patchy airspace disease within the left lung. Correlate for pneumonia. 2. COPD changes.
[2022-07-28] MEDS: FORMOTEROL FUMARATE 20 MCG/2 ML NEBU INHALATION SCH ×2 (09:08→20:26)
[2022-07-28] MEDS: BUDESONIDE 0.5 MG/2 ML NEBU INHALATION SCH ×2 (09:08→20:26)
--- NOTE | 2022-07-28 09:22 | CDI ---
Documentation Clarification Form Date: 07/28/2022 09:10:31 AM From: April LyonDicksonJOSE DANIEL hsu, CCDS Admit Date: 07/25/2022 12:43:00 PM Patient Name: Carmita Tineo Visit Number: [id number] Discharge Date: ATTENTION: The Clinical Documentation Specialists (CDI) and [facility] Coding Staff appreciate your assistance in clarifying documentation. Please respond to the clarification below the line at the bottom and electronically sign. The CDI & [facility] Coding staff will review the response and follow-up if needed. Please note: Queries are made part of the Legal Health Record. If you have any questions, please contact the author of this message via ITS. Dr. Pepe Flores: The patient presented with the following clinical indicators. Additional clarification regarding the etiology/cause of the clinical indicators is requested. History/Risk Factors per the 07/25 H/P: Severe COPD on Home O2, former smoker, Recent COVID 19 07/11/2022, Chronic Hypoxic Respiratory Failure, DVT, Hypertension, Hyperlipidemia, Osteoarthritis, Rheumatoid Arthritis, CAD w/stent, Ischemic Cardiomyopathy w/EF 30-35% in 2019, Chronically elevated left hemidiaphragm, Severe Protein Calorie Malnutrition, Occasional Dysphagia, Chronic Low back pain & Bilateral hip pain, Large hiatal hernia. Clinical Indicators: Presented to the ED on 07/25 with SOB. Per EMS: PO 87 on home O2. Admit with Acute Respiratory Failure, COPD Exacerbation, JOVITA, Chronic Anemia, Hyperkalemia, Hypomagnesemia, Pneumonia, History of COVID 19. 07/25 VS: T 100.1 Axillary, P 111, R 24 (sob, labored, deep), BP 94/67, PO 98 CPAP - 40% BiPAP, MBI: 20.9. 07/25 LAB: WBC 8.7, RBC 2.77, Hgb 9.2, Hct 28.3, Neutrophils 8.1, Lymphocytes 0.3; D Dimer 2.05; Na 136, K 6.4, CO2 21, BUN 44, Creatinine 1.55, Glucose 121, Lactic Acid 1.4, Magnesium 1.4 , Procalcitonin 0.94. 07/25 COVID, Influenza A/B: negative. 07/25 CXR: New JONAS infiltrate. Correlate for pneumonia. Some mild streak atelectasis in the left lower lung, correlate for atelectasis. 07/25 CT Chest: No PE. 15.5 mm spiculated mass RUL highly suspicious for malignancy, Left upper & lower lobes consistent with pneumonia. Metastasis in thoracic spine not excluded. 07/25 EKG: R 107 tachycardia. Treatment 07/25: Blood Glucose monitoring, Telemetry, Blood cultures, O2: CPAP - BiPAP, INH Duoneb, IV Solumedrol, IV Zosyn, INH Ventolin, IV Vanco, IV Dextrose, IV Insulin, IV Na Bicarb, po Kayexalate, IV fl bolus 1,000 mls @ 999 mls/hr q1H, IV Na Chl 100 mls/hr q1qH, Lovenox sq, IV PPI, IV Mag Sulf, INH Symbicort, INH Perforomist. Admit to ICU. In your professional opinion, please clarify if these findings signify one of the following conditions: [ x ] Sepsis POA [ ] Sepsis, Not POA [ ] Severe Sepsis with organ failure [ ] Other, please specify: [ ] Unable to determine (Template Last Reviewed: November 2020) PRIYANKA
[2022-07-28] MEDS: SODIUM CHLORIDE 0.9% 1,000 ML IV SCH (10:52)
[2022-07-28] MEDS: PANTOPRAZOLE 40 MG/10 ML VIAL IV SCH (10:54)
[2022-07-28] MEDS: guaiFENesin 600 MG TABLET.ER PO SCH ×2 (10:55→20:59)
[2022-07-28] MEDS: CITALOPRAM HYDROBROMIDE 20 MG TAB PO SCH (10:55)
[2022-07-28] MEDS: FAMOTIDINE 20 MG TAB PO SCH (10:55)
[2022-07-28] MEDS: FERROUS SULFATE 325 MG TAB PO SCH (10:55)
[2022-07-28] MEDS: POTASSIUM CHLORIDE ER 20 MEQ TAB.ER PO SCH ×2 (10:55→11:55)
[2022-07-28] MEDS: allopurinoL 300 MG TAB PO SCH (10:56)
[2022-07-28] MEDS: GABAPENTIN 300 MG CAP PO SCH ×3 (10:56→20:59)
[2022-07-28] MEDS: ASPIRIN 81 MG PO SCH (10:56)
[2022-07-28] MEDS: METOPROLOL SUCCINATE (ER) 25 MG TAB.ER.24H PO SCH (10:56)
[2022-07-28] MEDS: ENOXAPARIN 40 MG/0.4 ML SYRINGE SQ SCH (10:57)
[2022-07-28] MEDS: ALPRAZolam 0.5 MG TAB PO PRN ×2 (11:04→20:59)
--- NOTE | 2022-07-28 12:15 | P.PN ---
Subjective Progress Note Date: 07/28/22 Principal diagnosis: Acute hypoxic respiratory failure secondary to multilobar pneumonia, possibly hospital-acquired pneumonia. And underlying COPD exacerbation This is a pleasant 66-year-old male patient with advanced COPD. The patient is auction dependent and the patient has an FEV1 of 34% predicted consistent with severe COPD and the patient has had multiple hospitalization for COPD exacerbation. The patient was in the hospital on 07/11/2022 and at that time he was positive for cold and 19, treated without any major complications and he was discharged home. He came in today with worsening shortness of breath. The shortness of breath rapidly evolving the patient became quite dyspneic and he came into the hospital and the chest x-ray showed extensive consolidation of the left lung mainly in the left upper lobe and lingular segment and some in the left lower lobe. Based on that, the patient was immediately placed on a BiPAP at a pressure of 12/6 cm of water with FiO2 of 40%. His current respiratory rate is around 27. He is awake and alert. His generating a tidal volume of 750. CTA of the chest was also done in the emergency that showed no evidence of any pulmonary embolism. There was areas of spiculation in the right upper lobe measuring 15 mm suspicious for malignancy. At the same time, there was diffuse consolidation involving the left lung more so on the left upper lobe and to lesser extent in the left lower lobe. There is also some background emphysema as noted. The patient was already given a dose of Zosyn and dose of vancomycin. He was not on bronchodilators. He is started on steroids. He is still short of breath and is using his abdomen to breathe and is doing some abdominal breathing. He is known to have [id number] smoking history and he quit smoking in December 2021. Has rheumatoid arthritis. He has also cardiomyopathy, coronary artery disease, previous coronary stents, previous vascular intervention for peripheral vascular disease including stenting to his lower extremities and he has had previous orthopedic surgeries. He has also gout, chronic anemia, right hip avascular necrosis. He is oxygen dependent and he typically utilizes oxygen at 4 L/m nasal cannula on an outpatient basis. CAT scan of the chest also showed a small to moderate-sized hiatal hernia. 07/26/2022, the patient remains on a BiPAP. He was briefly taken off the BiPAP this morning through the small bites and immediately following that he was placed back on a BiPAP pressure of 12/5 cm both of his current FiO2 is at 40%. He seems to be slightly more comfortable compared to yesterday although he is still tachypneic even while being on a BiPAP. He is able to generate adequate tidal volumes while on the BiPAP. The chest x-ray showing some limited improvement in the extensive left upper lobe pulmonary infiltrate. I would say that his some interval improvement in the pneumonia. The patient was started on broad-spectrum antibiotics and he is on a combination of Zosyn and Levaquin. The white cell count is 11.0 with a hemoglobin of 7.2 which is about compared to yesterday. No evidence of any GI bleeding. Electrodes are within normal limits. Pro calcitonin level was elevated at 0.9 and the patient remains on a combination of bronchodilators and steroids. No other significant events. No altered mentation. No agitation. 07/26/2022, the patient is being seen for a follow-up. The patient's is feeling better. After spending the entire night on a BiPAP at a pressure clover 6 cm the fourth, the patient was placed on oxygen at 5 L nasal cannula. Doing well. Less shortness of breath. There are entry is improved bilaterally. Less bronchospastic and we compared to yesterday. Pneumonia in the left upper lobe was already improving. There was excellent at 6.7. Hemoglobin dropped down to 6.9 and there is no evidence of any acute bleeding. The patient will be given a unit of packed RBC. The rest of electrolytes are old stable for now, sodiums of 139, BUN is 26 and a creatinine of 0.7. As far as cultures, blood cultures were negative. The patient is being treated for possible hospital-acquired pneumonia and he is on a combination of Zosyn and vanco . No altered mentation. No signs of any CO2 narcosis. No encephalopathy at this point in time. He is also on vancomycin. Clinically improving. A repeat chest cystoscopy pending and this needs to be done on a daily basis. Reevaluated today on , patient remains in the ICU, he is marginal at best. Overnight the patient is on BiPAP with IPAP of 12 EPAP of 6, and he was on FiO2 of 35%. This morning he is on 4 L nasal cannula. A black seems to be comfortable, however he was more comfortable on BiPAP. He is on vancomycin and Zosyn empirically. Today's hemoglobin is 8.1. He is hemodynamically stable, not requiring any pressors. Chest x-ray continues to show significant infiltrates /patchy airspace disease within the left lung. Consistent with pneumonia. WBC count today is 6.8 hemoglobin is 8.1 electrodes are normal renal profile is normal. Patient received a unit of packed RBCs since admission for low hemoglobin of 6.9 yesterday Objective - Vital Signs Vital signs: Vital Signs Temp 97.7 F 07/28/22 08:00 Pulse 108 H 07/28/22 11:00 Resp 24 07/28/22 11:00 BP 156/82 07/28/22 11:00 Pulse Ox 93 L 07/28/22 11:00 FiO2 4 07/28/22 10:00 Intake & Output 07/27/22 07/28/22 07/28/22 18:59 06:59 18:59 Intake Total 1185 690 180 Output Total 600 1050 400 Balance 585 -360 -220 Weight 66.2 kg Intake: IV 875 470 180 Magnesium Sulfate-D5w Pmx 100 1 gm In Dextrose/Water 1 100ml.bag @ 100 mls/hr IVPB Q1H [facility] Rx#: [id number] Piperacillin-Tazobactam 3 200 100 100 .375 gm In Sodium Chloride 0.9% 100 ml @ 25 mls/hr IVPB Q8HR [facility] Rx# :[id number] Potassium Chloride 10 meq 100 In Water For Injection 1 100ml.bag @ 100 mls/hr IVPB Q1H [facility] Rx#: [id number] Sodium Chloride 0.9% 1, 225 120 80 000 ml @ 20 mls/hr IV . Q24H [facility] Rx#:[id number] Vancomycin 1,250 mg In 250 Sodium Chloride 0.9% 250 ml @ 125 mls/hr IVPB Q12H [facility] Rx#:[id number] Vancomycin 1,250 mg In 250 Sodium Chloride 0.9% 250 ml @ 125 mls/hr IVPB Q16H [facility] Rx#:[id number] Oral 220 Blood Product 310 Rc As-1 Unit 310 [id number] Output: Urine 600 800 400 Stool 250 Other: Voiding Method Urinal Urinal # Voids 1 1 # Bowel Movements 1 1 1 - Exam GENERAL EXAM: Revealed a 66-year-old white male in mild distress. On 4 L nasal cannula and has BiPAP at bedside HEAD: Normocephalic. Atraumatic. EYES: Normal reaction of pupils, equal size. NOSE: Clear with pink turbinates. THROAT: No erythema or exudates. NECK: No masses, no JVD. CHEST: No chest wall deformity. LUNGS: Crackles and rhonchi noted bilaterally. CVS: S1 and S2 normal with no audible murmur, regular rhythm. ABDOMEN: No hepatosplenomegaly, normal bowel sounds, no guarding or rigidity. SKIN: No rashes CENTRAL NERVOUS SYSTEM: Alert and oriented 3 no gross focal deficits EXTREMITIES: No clubbing edema or cyanosis. Psychiatric: Normal mood affect and normal mental status examination. - Labs CBC & Chem 7: 07/28/22 03:46 07/28/22 03:46 Labs: Abnormal Lab Results - Last 24 Hours (Table) 07/27/22 07/27/22 07/27/22 Range/Units 09:44 09:44 17:46 RBC 2.80 L (4.30-5.90) m/uL Hgb 8.9 L D (13.0-17.5) gm/dL Hct 27.9 L (39.0-53.0) % RDW 16.7 H (11.5-15.5) % Plt Count (150-450) k/uL Neutrophils # 9.8 H (1.3-7.7) k/uL Lymphocytes # 0.2 L (1.0-4.8) k/uL Potassium (3.5-5.1) mmol/L BUN (9-20) mg/dL Glucose (74-99) mg/dL Calcium (8.4-10.2) mg/dL Transferrin 186.0 L (204.0-354.0) mg/dL Crossmatch See Detail 07/28/22 07/28/22 Range/Units 03:46 03:46 RBC 2.58 L (4.30-5.90) m/uL Hgb 8.1 L (13.0-17.5) gm/dL Hct 25.1 L (39.0-53.0) % RDW 17.1 H (11.5-15.5) % Plt Count 133 L (150-450) k/uL Neutrophils # (1.3-7.7) k/uL Lymphocytes # 0.2 L (1.0-4.8) k/uL Potassium 3.4 L (3.5-5.1) mmol/L BUN 22 H (9-20) mg/dL Glucose 148 H (74-99) mg/dL Calcium 8.1 L (8.4-10.2) mg/dL Transferrin (204.0-354.0) mg/dL Crossmatch Microbiology - Last 24 Hours (Table) 07/25/22 11:40 Blood Culture - Preliminary Blood No Growth after 48 hours 07/25/22 11:37 Blood Culture - Preliminary Blood No Growth after 48 hours Assessment and Plan Assessment: Impression: Acute on chronic hypoxic respiratory failure secondary to extensive left-sided pneumonia possibly hospital-acquired pneumonia. And secondary to acute exacerbation of COPD Severe underlying COPD Acute kidney injury secondary to above Acute exacerbation of COPD Chronic hypoxic respiratory failure, patient is normally on oxygen for his underlying COPD, FEV1 of 34% History of current 19 infection Underlying coronary arteriosclerosis and previous stent placement Peripheral vessel occlusive disease 83-asym-[id number] smoking history quit in December of 2021 Benign essential hypertension Dyslipidemia History of rheumatoid arthritis History of multiple orthopedic surgeries History of severe cardiomyopathy/ischemic in nature ejection fraction 35%. Recommendation: Continue BiPAP as needed Continue antibiotics Zosyn and vancomycin empirically Check sputum and blood cultures Continue bronchodilators Continue IV Solu-Medrol Continue IV fluids but monitor for potential CHF as the patient is known to have history of cardiomyopathy and LV dysfunction Continue subcu heparin for DVT prophylaxis Continue GI prophylaxis/Protonix Continue to monitor in ICU Prognosis is rather poor and guarded knowing his underlying severe COPD Time with Patient: Less than 30
--- NOTE | 2022-07-28 16:59 | P.PN ---
Subjective Progress Note Date: 07/28/22 This is a 66-year-old gentleman admitted with acute COPD exacerbation, multilobar pneumonia, severe COPD, history of recent covid, multiple frequent admissions regarding his acute hypoxic respiratory failure/COPD. Yesterday required a unit of packed RBCs for hemoglobin of 6.9, hemoglobin currently 8.1 Overnight patient became BiPAP dependent and is currently on BiPAP this morning. Chest CTA had reported to 15.5 mm spiculated mass right upper lobe highly suspicious for malignancy with 3 large scattered diffuse areas to partially consolidative and interstitial opacity in the left upper and lower lobes consistent with pneumonia, a few scattered tiny sclerotic densities in the thoracic spine, possible metastasis, large hiatal hernia, with no mediastinal hilar or axillary adenopathy. Chest x-ray reporting similar patchy airspace disease within the left lung, correlate for pneumonia, COPD changes. Continues on empiric antibiotics of Zosyn and vancomycin. Renal function stable. Afebrile, normal WBC. Blood cultures reporting no growth to date. Potassium 3.4, receiving supplementation per ICU protocol. Objective - Vital Signs Vital signs: Vital Signs Temp 97.7 F 07/28/22 08:00 Pulse 67 07/28/22 15:00 Resp 26 H 07/28/22 15:00 BP 164/85 07/28/22 15:00 Pulse Ox 96 07/28/22 15:13 FiO2 35 07/28/22 15:15 Intake & Output 07/27/22 07/28/22 07/28/22 18:59 06:59 18:59 Intake Total 1185 690 260 Output Total 600 1050 900 Balance 585 360 -640 Weight 66.2 kg Intake: IV 875 470 260 Magnesium Sulfate-D5w Pmx 100 1 gm In Dextrose/Water 1 100ml.bag @ 100 mls/hr IVPB Q1H [facility] Rx#: [id number] Piperacillin-Tazobactam 3 200 100 100 .375 gm In Sodium Chloride 0.9% 100 ml @ 25 mls/hr IVPB Q8HR [facility] Rx# :[id number] Potassium Chloride 10 meq 100 In Water For Injection 1 100ml.bag @ 100 mls/hr IVPB Q1H [facility] Rx#: [id number] Sodium Chloride 0.9% 1, 225 120 160 000 ml @ 20 mls/hr IV . Q24H [facility] Rx#:[id number] Vancomycin 1,250 mg In 250 Sodium Chloride 0.9% 250 ml @ 125 mls/hr IVPB Q12H [facility] Rx#:[id number] Vancomycin 1,250 mg In 250 Sodium Chloride 0.9% 250 ml @ 125 mls/hr IVPB Q16H [facility] Rx#:[id number] Oral 220 Blood Product 310 Rc As-1 Unit 310 [id number] Output: Urine 600 800 900 Stool 250 Other: Voiding Method Urinal Urinal # Voids 1 1 # Bowel Movements 1 1 1 - Exam PHYSICAL EXAMINATION: GENERAL: Alert and oriented 3 ,SItting up in bed, fatiqued, wearing Bipap HEENT: Normocephalic. Pupils reactive. Neck: supple, CHEST EXAMINATION: Trachea is central. Symmetrical expansion. Scattered coarse rhonchi with crackles. Expiratory wheezing. CARDIAC: Normal S1, S2 with no gallops. No murmurs . ABDOMEN: Soft. Nontender, Bowel sounds normal. No organomegaly. No guarding. Extremities: reveal no edema. No clubbing or cyanosis Neurological: Cranial nerves 2 through 12 grossly intact. No focal deficits noted Skin: Warm and dry, No rash. - Labs CBC & Chem 7: 07/28/22 03:46 07/28/22 03:46 Labs: Abnormal Lab Results - Last 24 Hours (Table) 07/27/22 07/28/22 07/28/22 Range/Units 17:46 03:46 03:46 RBC 2.80 L 2.58 L (4.30-5.90) m/uL Hgb 8.9 L D 8.1 L (13.0-17.5) gm/dL Hct 27.9 L 25.1 L (39.0-53.0) % RDW 16.7 H 17.1 H (11.5-15.5) % Plt Count 133 L (150-450) k/uL Neutrophils # 9.8 H (1.3-7.7) k/uL Lymphocytes # 0.2 L 0.2 L (1.0-4.8) k/uL Potassium 3.4 L (3.5-5.1) mmol/L BUN 22 H (9-20) mg/dL Glucose 148 H (74-99) mg/dL Calcium 8.1 L (8.4-10.2) mg/dL Microbiology - Last 24 Hours (Table) 07/25/22 11:40 Blood Culture - Preliminary Blood No Growth after 72 hours 07/25/22 11:37 Blood Culture - Preliminary Blood No Growth after 72 hours Assessment and Plan Assessment: Acute on chronic hypoxic respiratory failure secondary to Acute COPD exacerbation, extensive left-sided pneumonia, possibly hospital-acquired Generalized weakness and fatigue secondary to the above Acute renal failure secondary to the above Acute on chronic anemia, status post 1 unit packed RBCs, in a patient with history of pancytopenia. Prior EGD and colonoscopy07/[address] Claire Rm, had reported mild gastritis, hiatal hernia, scattered sigmoid diverticulosis and small internal hemorrhoids Recent COVID 19 infection, Vaccinated and boosted X 2. Chronically elevated left hemidiaphragm Hypertension Hyperlipidemia Coronary artery disease with history of stent placement PVD History of DVT Hyperlipidemia Osteoarthritis Rheumatoid arthritis Prior nicotine dependence, extensive 50 year smoking history, quit December 2021 Areas of spiculation in the right upper lobe measuring 15 mm suspicious for malignancy, reported per CT, further work up op. Cardiomyopathy Protein calorie malnutrition, moderate, BMI 20.9 Plan: Continue on current medication regime ,monitoring and symptomatic treatment. Aggressive pulmonary toileting with Empiric antibiotics, BiPAP , nebulized bronchodilators, IV steroids. Close monitoring of renal function and electrolytes with repeat labs ordered for a.m. Patient is discouraged, stating he's tired of these frequent admissions and doesn't want to continue like this; CODE STATUS brought up and patient will discuss with family. ICU management As per space physicist. Prognosis guarded given multiple complex medical issues. The impression and plan of care has been dictated as directed. : I performed a history and examination of this patient, discussed the same with the dictator. I agree with the dictator's note ,documented as a scribe. Any additional findings or plans will be noted.
[2022-07-28] MEDS: DONEPEZIL 5 MG TAB PO SCH (20:59)
[2022-07-28] MEDS: ATORVASTATIN 80 MG TAB PO SCH (20:59)
[2022-07-28] MEDS: hydrOXYzine HCL 25 MG TAB PO SCH (20:59)
[2022-07-29] MEDS: hydrALAZINE HCL 20 MG/ML 1 ML VIAL IVP PRN (01:09)
[2022-07-29] MEDS: ONDANSETRON 4 MG/2 ML VIAL IVP PRN ×2 (04:26→17:21)
[2022-07-29] MEDS ORDERED: VANCOMYCIN TROUGH DUE 1 EACH MISC MISCELLANE ONE (05:00)
[2022-07-29 05:04] LABS: Anisocytosis Slight; Basophils % (A) 0 %; Eosinophils % (A) 0 %; HCT 25.5 % (39.0-53.0); HGB 8.4 gm/dL (13.0-17.5); Hypochromasia Moderate; Lymphocytes # (A) 0.2 k/uL (1.0-4.8); Lymphocytes % (A) 3 %; MCH 32.5 pg (25.0-35.0); MCHC 32.9 g/dL (31.0-37.0); Macrocytosis Slight; Mean Platelet Volume 8.9; Monocytes # (A) 0.3 k/uL (0-1.0); Monocytes % (A) 5 %; Neutrophils # (A) 4.9 k/uL (1.3-7.7); Neutrophils % (A) 92 %; Platelet Count 128 k/uL (150-450); RBC 2.57 m/uL (4.30-5.90); RDW 16.7 % (11.5-15.5); WBC 5.4 k/uL (3.8-10.6)
[2022-07-29 05:26] LABS: African American GFR (CKD) >90 (>60 ml/min/1.73 sqM); Non-African American GFR(CKD) >90 (>60 ml/min/1.73 sqM)
[2022-07-29 05:28] LABS: African American GFR (CKD) >90 (>60 ml/min/1.73 sqM); Anion Gap 9 mmol/L; Blood Urea Nitrogen 22 mg/dL (9-20); Calcium 7.9 mg/dL (8.4-10.2); Carbon Dioxide 24 mmol/L (22-30); Chloride 110 mmol/L (98-107); Glucose 143 mg/dL (74-99); Non-African American GFR(CKD) >90 (>60 ml/min/1.73 sqM); Potassium 3.8 mmol/L (3.5-5.1); Sodium 143 mmol/L (137-145)
[2022-07-29] MEDS ORDERED: Potassium Replacement Protocol 1 EACH MISC MISCELLANE PRN (05:37)
[2022-07-29] MEDS ORDERED: POTASSIUM CHLORIDE ER 20 MEQ TAB.ER PO SCH ×2 (06:00)
[2022-07-29] MEDS: VANCOMYCIN 1,250 MG in SODIUM CHLORIDE 0.9% 250 ML IVPB SCH (06:05)
[2022-07-29] MEDS: methylPREDNISolone SOD SUCCI 125 MG/2 ML VIAL IV SCH ×4 (06:05→23:32)
[2022-07-29] MEDS: ALPRAZolam 0.5 MG TAB PO PRN ×2 (06:10→19:10)
[2022-07-29] MEDS: SODIUM CHLORIDE 0.9% 1,000 ML IV SCH (06:25)
[2022-07-29] MEDS: traMADol 50 MG TAB PO PRN (07:01)
[2022-07-29] MEDS: FORMOTEROL FUMARATE 20 MCG/2 ML NEBU INHALATION SCH ×2 (07:22→20:22)
[2022-07-29] MEDS: BUDESONIDE 0.5 MG/2 ML NEBU INHALATION SCH ×2 (07:23→20:22)
--- NOTE | 2022-07-29 08:25 | XR ---
EXAMINATION TYPE: XR chest 1V portable DATE OF EXAM: 07/29/2022 Comparison: 07/28/2022 Clinical History: 66-year-old male pneumonia Findings: Similar asymmetric elevation left hemidiaphragm. Heart upper limits of normal in size. Interstitial c hanges show improvement on the right. Interstitial and patchy opacities throughout the left lung are similar. Query pseudosubluxation versus superior subluxation left glenohumeral joint. Impression: 1. Similar patchy and interstitial infiltrates on the left. Aeration is improving on the right. 2. Similar appearance of pseudosubluxation or superior subluxation of the left glenoid humeral joint. This may reflect underlying chronic full-thickness rotator cuff tear or neuromuscular deficiency.
[2022-07-29] MEDS: PIPERACILLIN-TAZOBACTAM 3.375 GM in SODIUM CHLORIDE 0.9% 100 ML IVPB SCH ×3 (08:45→23:33)
[2022-07-29] MEDS: CITALOPRAM HYDROBROMIDE 20 MG TAB PO SCH (08:45)
[2022-07-29] MEDS: FERROUS SULFATE 325 MG TAB PO SCH (08:45)
[2022-07-29] MEDS: ENOXAPARIN 40 MG/0.4 ML SYRINGE SQ SCH (08:45)
[2022-07-29] MEDS: guaiFENesin 600 MG TABLET.ER PO SCH ×2 (08:45→20:52)
[2022-07-29] MEDS: GABAPENTIN 300 MG CAP PO SCH ×3 (08:45→21:23)
[2022-07-29] MEDS: FAMOTIDINE 20 MG TAB PO SCH (08:45)
[2022-07-29] MEDS: METOPROLOL SUCCINATE (ER) 25 MG TAB.ER.24H PO SCH (08:45)
[2022-07-29] MEDS: PANTOPRAZOLE 40 MG/10 ML VIAL IV SCH (08:46)
[2022-07-29] MEDS: ASPIRIN 81 MG PO SCH (08:46)
[2022-07-29] MEDS: allopurinoL 300 MG TAB PO SCH (08:47)
--- NOTE | 2022-07-29 10:00 | CDI ---
Documentation Clarification Form Date: 07/29/2022 09:48:09 AM From: April Dickson CCS, CCDS Admit Date: 07/25/2022 12:43:00 PM Patient Name: Carmita Tineo Visit Number: [id number] Discharge Date: ATTENTION: The Clinical Documentation Specialists (CDI) and [facility] Coding Staff appreciate your assistance in clarifying documentation. Please respond to the clarification below the line at the bottom and electronically sign. The CDI & [facility] Coding staff will review the response and follow-up if needed. Please note: Queries are made part of the Legal Health Record. If you have any questions, please contact the author of this message via ITS. Dr. David Woodson: Acute on Chronic Anemia status post 1-unit PRBCs in a patient with a history of Pancytopenia is documented in the 07/28 Attending Physician Progress Note without further specificity of the type of Anemia. Additional specificity regarding the Type of Anemia is requested. History/Risk Factors per the 07/25 H/P: Cardiomyopathy, chronically elevated left diaphragm on Home O2 4Lnc, DVT bilateral legs, Chronic low back pain, Gout, CAD with stent, COPD, Hypertension, Hyperlipidemia, Rheumatoid arthritis. Moderate Protein Calorie Malnutrition with BMI 20.9 is documented in the 07/28 Attending Progress Note. Clinical indicators: Presented to the ED on 07/25 via EMS with SOB with history of severe COPD. Admit with Acute respiratory failure, COPD exacerbation, JOVITA, Chronic anemia, Hyperkalemia, Hypomagnesemia, Pneumonia and History of COVID 19. Hemoglobin 07/25: 9.2. 07/26: 7.2. 07/27: 6.9, 8.9. 07/28: 8.1. 07/29: 8.4. Hematocrit 07/25: 28.3. 07/26: 23.5. 07/27: 20.2, 27.9. 07/28: 25.1. 07/29: 25.5. 07/27 Iron studies: Iron 67, TIBC 260, % Saturation 25.65, Transferrin 186.0. Treatment 07/25: Telemetry, Blood glucose monitoring, Blood culture x2, O2 - BiPAP, INH Duoneb 6 ml x1, IV Solumedrol 125 mg x1, IV Zosyn 100 mls @ 200 mls/hr x1, INH Ventolin 2.5 mg x1, IV Vancomycin 250 mls @ 125 mls/hr x1, IV Dextrose 50 ml x1, IV Insulin 10 units x1, IV Na Bicarb 50 ml x1, IV Na Chl 1,000 mls @ 999 mls/hr q1H, IV Na Chl 1,000 mls @ 100 mls/hr q10H. 07/27: Blood Transfusion: 1unit PRBC Please clarify the Type & Acuity of Anemia: [ ] Acute blood loss anemia [ ] Acute on chronic blood loss anemia [ ] Chronic blood loss anemia [ ] Iron deficiency anemia [ ] Hemolytic anemia [ ] Drug induced anemia [ ] Nutritional anemia [X ] Anemia of chronic disease [ ] Unable to determine [ ] Other, please specify (Template Last Revised: November 2020) MTDD
--- NOTE | 2022-07-29 12:20 | P.PN ---
Subjective Progress Note Date: 07/29/22 Principal diagnosis: Acute hypoxic respiratory failure secondary to multilobar pneumonia, possibly hospital-acquired pneumonia. And underlying COPD exacerbation This is a pleasant 66-year-old male patient with advanced COPD. The patient is auction dependent and the patient has an FEV1 of 34% predicted consistent with severe COPD and the patient has had multiple hospitalization for COPD exacerbation. The patient was in the hospital on 07/11/2022 and at that time he was positive for cold and 19, treated without any major complications and he was discharged home. He came in today with worsening shortness of breath. The shortness of breath rapidly evolving the patient became quite dyspneic and he came into the hospital and the chest x-ray showed extensive consolidation of the left lung mainly in the left upper lobe and lingular segment and some in the left lower lobe. Based on that, the patient was immediately placed on a BiPAP at a pressure of 12/6 cm of water with FiO2 of 40%. His current respiratory rate is around 27. He is awake and alert. His generating a tidal volume of 750. CTA of the chest was also done in the emergency that showed no evidence of any pulmonary embolism. There was areas of spiculation in the right upper lobe measuring 15 mm suspicious for malignancy. At the same time, there was diffuse consolidation involving the left lung more so on the left upper lobe and to lesser extent in the left lower lobe. There is also some background emphysema as noted. The patient was already given a dose of Zosyn and dose of vancomycin. He was not on bronchodilators. He is started on steroids. He is still short of breath and is using his abdomen to breathe and is doing some abdominal breathing. He is known to have [id number] smoking history and he quit smoking in December 2021. Has rheumatoid arthritis. He has also cardiomyopathy, coronary artery disease, previous coronary stents, previous vascular intervention for peripheral vascular disease including stenting to his lower extremities and he has had previous orthopedic surgeries. He has also gout, chronic anemia, right hip avascular necrosis. He is oxygen dependent and he typically utilizes oxygen at 4 L/m nasal cannula on an outpatient basis. CAT scan of the chest also showed a small to moderate-sized hiatal hernia. 07/26/2022, the patient remains on a BiPAP. He was briefly taken off the BiPAP this morning through the small bites and immediately following that he was placed back on a BiPAP pressure of 12/5 cm both of his current FiO2 is at 40%. He seems to be slightly more comfortable compared to yesterday although he is still tachypneic even while being on a BiPAP. He is able to generate adequate tidal volumes while on the BiPAP. The chest x-ray showing some limited improvement in the extensive left upper lobe pulmonary infiltrate. I would say that his some interval improvement in the pneumonia. The patient was started on broad-spectrum antibiotics and he is on a combination of Zosyn and Levaquin. The white cell count is 11.0 with a hemoglobin of 7.2 which is about compared to yesterday. No evidence of any GI bleeding. Electrodes are within normal limits. Pro calcitonin level was elevated at 0.9 and the patient remains on a combination of bronchodilators and steroids. No other significant events. No altered mentation. No agitation. 07/26/2022, the patient is being seen for a follow-up. The patient's is feeling better. After spending the entire night on a BiPAP at a pressure clover 6 cm the fourth, the patient was placed on oxygen at 5 L nasal cannula. Doing well. Less shortness of breath. There are entry is improved bilaterally. Less bronchospastic and we compared to yesterday. Pneumonia in the left upper lobe was already improving. There was excellent at 6.7. Hemoglobin dropped down to 6.9 and there is no evidence of any acute bleeding. The patient will be given a unit of packed RBC. The rest of electrolytes are old stable for now, sodiums of 139, BUN is 26 and a creatinine of 0.7. As far as cultures, blood cultures were negative. The patient is being treated for possible hospital-acquired pneumonia and he is on a combination of Zosyn and vanco . No altered mentation. No signs of any CO2 narcosis. No encephalopathy at this point in time. He is also on vancomycin. Clinically improving. A repeat chest cystoscopy pending and this needs to be done on a daily basis. Reevaluated today on , patient remains in the ICU, he is marginal at best. Overnight the patient is on BiPAP with IPAP of 12 EPAP of 6, and he was on FiO2 of 35%. This morning he is on 4 L nasal cannula. A black seems to be comfortable, however he was more comfortable on BiPAP. He is on vancomycin and Zosyn empirically. Today's hemoglobin is 8.1. He is hemodynamically stable, not requiring any pressors. Chest x-ray continues to show significant infiltrates /patchy airspace disease within the left lung. Consistent with pneumonia. WBC count today is 6.8 hemoglobin is 8.1 electrodes are normal renal profile is normal. Patient received a unit of packed RBCs since admission for low hemoglobin of 6.9 yesterday Reevaluated today on 07/29/22, patient remains in the ICU, clinically slightly better today compared to yesterday. He has BiPAP at bedside use it yesterday only 2 hours. He is now on 3 L nasal cannula, and he is saturating in the low 90s. Patient remains on Zosyn and vancomycin, however since the cultures are nondiagnostic I will go ahead and keep him on Zosyn and discontinue vancomycin. Chest x-ray today continues to show significant infiltrate in the left lung, but improved compared to the previous chest x-ray. WBC count is 5.4 hemoglobin 8.4 electrodes are normal renal profile is normal Objective - Vital Signs Vital signs: Vital Signs Temp 97.5 F L 07/29/22 08:00 Pulse 88 07/29/22 11:00 Resp 31 H 07/29/22 11:00 BP 143/65 07/29/22 11:00 Pulse Ox 96 07/29/22 11:23 FiO2 35 07/29/22 07:23 Intake & Output 07/28/22 07/29/22 07/29/22 18:59 06:59 18:59 Intake Total 1070 1035 520 Output Total 1950 925 250 Balance -880 110 270 Weight 67.2 kg Intake: IV 670 635 160 Piperacillin-Tazobactam 3 200 100 .375 gm In Sodium Chloride 0.9% 100 ml @ 25 mls/hr IVPB Q8HR [facility] Rx# :[id number] Sodium Chloride 0.9% 1, 220 260 60 000 ml @ 20 mls/hr IV . Q24H [facility] Rx#:[id number] Vancomycin 1,250 mg In 250 375 Sodium Chloride 0.9% 250 ml @ 125 mls/hr IVPB Q12H [facility] Rx#:[id number] Intake, IV Titration 100 Amount Piperacillin-Tazobactam 3 100 .375 gm In Sodium Chloride 0.9% 100 ml @ 25 mls/hr IVPB Q8HR [facility] Rx# :[id number] Oral 400 300 360 Output: Urine 1200 925 250 Stool 750 Other: Voiding Method Urinal Urinal Urinal # Voids 1 1 # Bowel Movements 1 - Exam GENERAL EXAM: Revealed a 66-year-old white male in mild distress. Presently on 3 L nasal cannula and has BiPAP at bedside. HEAD: Normocephalic. Atraumatic. EYES: Normal reaction of pupils, equal size. NOSE: Clear with pink turbinates. THROAT: No erythema or exudates. NECK: No masses, no JVD. CHEST: No chest wall deformity. LUNGS: Less crackles and rhonchi today compared to yesterday CVS: S1 and S2 normal with no audible murmur, regular rhythm. ABDOMEN: No hepatosplenomegaly, normal bowel sounds, no guarding or rigidity. SKIN: No rashes CENTRAL NERVOUS SYSTEM: Alert and oriented 3 no gross focal deficits EXTREMITIES: No clubbing edema or cyanosis. Psychiatric: Normal mood affect and normal mental status examination. - Labs CBC & Chem 7: 07/29/22 04:43 07/29/22 04:43 Labs: Abnormal Lab Results - Last 24 Hours (Table) 07/29/22 07/29/22 Range/Units 04:43 04:43 RBC 2.57 L (4.30-5.90) m/uL Hgb 8.4 L (13.0-17.5) gm/dL Hct 25.5 L (39.0-53.0) % RDW 16.7 H (11.5-15.5) % Plt Count 128 L (150-450) k/uL Lymphocytes # 0.2 L (1.0-4.8) k/uL Chloride 110 H (98-107) mmol/L BUN 22 H (9-20) mg/dL Creatinine 0.65 L (0.66-1.25) mg/dL Glucose 143 H (74-99) mg/dL Calcium 7.9 L (8.4-10.2) mg/dL Microbiology - Last 24 Hours (Table) 07/25/22 11:40 Blood Culture - Preliminary Blood No Growth after 72 hours 07/25/22 11:37 Blood Culture - Preliminary Blood No Growth after 72 hours Assessment and Plan Assessment: Impression: Acute on chronic hypoxic respiratory failure secondary to extensive left-sided pneumonia possibly hospital-acquired pneumonia. And secondary to acute exacerbation of COPD Severe underlying COPD Acute kidney injury secondary to above Acute exacerbation of COPD Chronic hypoxic respiratory failure, patient is normally on oxygen for his underlying COPD, FEV1 of 34% History of current 19 infection Underlying coronary arteriosclerosis and previous stent placement Peripheral vessel occlusive disease [id number] smoking history quit in December of 2021 Benign essential hypertension Dyslipidemia History of rheumatoid arthritis History of multiple orthopedic surgeries History of severe cardiomyopathy/ischemic in nature ejection fraction 35%. Recommendation: Titrate oxygen accordingly, use BiPAP as needed Continue antibiotics Zosyn and vancomycin empirically Continue bronchodilators Continue IV Solu-Medrol Continue IV fluids but monitor for potential CHF as the patient is known to have history of cardiomyopathy and LV dysfunction Continue subcu heparin for DVT prophylaxis Continue GI prophylaxis/Protonix Continue to monitor in ICU Time with Patient: Less than 30
--- NOTE | 2022-07-29 14:31 | P.PN ---
Subjective Progress Note Date: 07/29/22 This is a 66-year-old gentleman admitted with acute COPD exacerbation, multilobar pneumonia, severe COPD, history of recent covid, multiple frequent admissions regarding his acute hypoxic respiratory failure/COPD. Yesterday required a unit of packed RBCs for hemoglobin of 6.9, hemoglobin currently 8.1 Overnight patient became BiPAP dependent and is currently on BiPAP this morning. Chest CTA had reported to 15.5 mm spiculated mass right upper lobe highly suspicious for malignancy with 3 large scattered diffuse areas to partially consolidative and interstitial opacity in the left upper and lower lobes consistent with pneumonia, a few scattered tiny sclerotic densities in the thoracic spine, possible metastasis, large hiatal hernia, with no mediastinal hilar or axillary adenopathy. Chest x-ray reporting similar patchy airspace disease within the left lung, correlate for pneumonia, COPD changes. Continues on empiric antibiotics of Zosyn and vancomycin. Renal function stable. Afebrile, normal WBC. Blood cultures reporting no growth to date. Potassium 3.4, receiving supplementation per ICU protocol. 07/29/22 Maintained on Bipap,, O2 sats in the 90s. Code status changed to No code as per patient's request. Chest x-ray reporting similar patchy and interstitial infiltrates on the left, improving aeration on the right with similar appearances pseudosubluxation or superior subluxation of the left glenoid humeral joint. Maintained on vancomycin and Zosyn. Afebrile, normal WBC. Preliminary Blood cultures reporting no growth. Objective - Vital Signs Vital signs: Vital Signs Temp 97.1 F L 07/29/22 04:00 Pulse 68 07/29/22 07:41 Resp 30 H 07/29/22 07:00 BP 135/65 07/29/22 07:00 Pulse Ox 97 07/29/22 07:23 FiO2 35 07/29/22 07:23 Intake & Output 07/28/22 07/29/22 07/29/22 18:59 06:59 18:59 Intake Total 1070 1035 Output Total 1950 925 Balance -880 110 Weight 67.2 kg Intake: IV 670 635 Piperacillin-Tazobactam 3 200 .375 gm In Sodium Chloride 0.9% 100 ml @ 25 mls/hr IVPB Q8HR [facility] Rx# :[id number] Sodium Chloride 0.9% 1, 220 260 000 ml @ 20 mls/hr IV . Q24H [facility] Rx#:[id number] Vancomycin 1,250 mg In 250 375 Sodium Chloride 0.9% 250 ml @ 125 mls/hr IVPB Q12H [facility] Rx#:[id number] Intake, IV Titration 100 Amount Piperacillin-Tazobactam 3 100 .375 gm In Sodium Chloride 0.9% 100 ml @ 25 mls/hr IVPB Q8HR [facility] Rx# :[id number] Oral 400 300 Output: Urine 1200 925 Stool 750 Other: Voiding Method Urinal Urinal # Voids 1 1 # Bowel Movements 1 - Exam PHYSICAL EXAMINATION: GENERAL: Alert and oriented 3 ,SItting up in bed, fatiqued, wearing Bipap HEENT: Normocephalic. Pupils reactive. Neck: supple, CHEST EXAMINATION: Trachea is central. Symmetrical expansion. Scattered coarse rhonchi with crackles. CARDIAC: Normal S1, S2 with no gallops. No murmurs. ABDOMEN: Soft. Nontender, Bowel sounds normal. No organomegaly. No guarding. Extremities: reveal no edema. No clubbing or cyanosis Neurological: Cranial nerves 2 through 12 grossly intact. No focal deficits noted Skin: Warm and dry, No rash. - Labs CBC & Chem 7: 07/29/22 04:43 07/29/22 04:43 Labs: Abnormal Lab Results - Last 24 Hours (Table) 07/29/22 07/29/22 Range/Units 04:43 04:43 RBC 2.57 L (4.30-5.90) m/uL Hgb 8.4 L (13.0-17.5) gm/dL Hct 25.5 L (39.0-53.0) % RDW 16.7 H (11.5-15.5) % Plt Count 128 L (150-450) k/uL Lymphocytes # 0.2 L (1.0-4.8) k/uL Chloride 110 H (98-107) mmol/L BUN 22 H (9-20) mg/dL Creatinine 0.65 L (0.66-1.25) mg/dL Glucose 143 H (74-99) mg/dL Calcium 7.9 L (8.4-10.2) mg/dL Microbiology - Last 24 Hours (Table) 07/25/22 11:40 Blood Culture - Preliminary Blood No Growth after 72 hours 07/25/22 11:37 Blood Culture - Preliminary Blood No Growth after 72 hours Assessment and Plan Assessment: Acute on chronic hypoxic respiratory failure secondary to Acute COPD exacerbation, extensive left-sided pneumonia, possibly hospital-acquired Generalized weakness and fatigue secondary to the above Acute renal failure secondary to the above Acute on chronic anemia, status post 1 unit packed RBCs, in a patient with history of pancytopenia. Prior EGD and colonoscopy07/[address] Claire Rm, had reported mild gastritis, hiatal hernia, scattered sigmoid diverticulosis and small internal hemorrhoids Recent COVID 19 infection, Vaccinated and boosted X 2. Chronically elevated left hemidiaphragm Hypertension Hyperlipidemia Coronary artery disease with history of stent placement PVD History of DVT Hyperlipidemia Osteoarthritis Rheumatoid arthritis Prior nicotine dependence, extensive 50 year smoking history, quit December 2021 Areas of spiculation in the right upper lobe measuring 15 mm suspicious for malignancy, reported per CT, further work up op. Cardiomyopathy Protein calorie malnutrition, moderate, BMI 20.9 Plan: Continue on current medication regime ,monitoring and symptomatic treatment. Aggressive pulmonary toileting with Empiric antibiotics-vancomycin discontinued, BiPAP , nebulized bronchodilators, IV steroids. ICU management As per cue worker. Prognosis guarded given multiple complex medical issues. By early afternoon patient has been weaned to 3 L nasal cannula maintaining O2 sats in the high 90s. The impression and plan of care has been dictated as directed. : I performed a history and examination of this patient, discussed the same with the dictator. I agree with the dictator's note ,documented as a scribe. Any additional findings or plans will be noted.
[2022-07-29] MEDS: IPRATROPIUM-ALBUTEROL 3 ML NEB INHALATION PRN ×2 (15:28→20:22)
[2022-07-29] MEDS ORDERED: LORazepam 2 MG/ML INJ IV PRN (20:58)
[2022-07-29] MEDS: METOCLOPRAMIDE 5 MG/ML 2 ML VIAL IVP PRN (21:04)
[2022-07-29] MEDS: DONEPEZIL 5 MG TAB PO SCH (21:23)
[2022-07-29] MEDS: hydrOXYzine HCL 25 MG TAB PO SCH (21:23)
[2022-07-29] MEDS: ATORVASTATIN 80 MG TAB PO SCH (21:23)
[2022-07-29] MEDS: LORazepam 1 MG/0.5 ML VIAL IV PRN (21:24)
[2022-07-30] MEDS: traMADol 50 MG TAB PO PRN (00:56)
[2022-07-30] MEDS: ONDANSETRON 4 MG/2 ML VIAL IVP PRN ×2 (01:29→07:27)
[2022-07-30] MEDS: LORazepam 1 MG/0.5 ML VIAL IV PRN ×3 (02:55→15:11)
[2022-07-30] MEDS: METOCLOPRAMIDE 5 MG/ML 2 ML VIAL IVP PRN (04:03)
[2022-07-30 04:07] LABS: Anisocytosis Slight; Basophils % (A) 0 %; Eosinophils % (A) 0 %; HGB 8.5 gm/dL (13.0-17.5); Hypochromasia Marked; Lymphocytes # (A) 0.2 k/uL (1.0-4.8); Lymphocytes % (A) 2 %; MCH 31.6 pg (25.0-35.0); MCHC 31.7 g/dL (31.0-37.0); MCV 99.8 fL (80.0-100.0); Macrocytosis Slight; Mean Platelet Volume 8.5; Monocytes # (A) 0.3 k/uL (0-1.0); Monocytes % (A) 5 %; Neutrophils # (A) 5.8 k/uL (1.3-7.7); Neutrophils % (A) 92 %; Platelet Count 142 k/uL (150-450); RDW 16.4 % (11.5-15.5); WBC 6.3 k/uL (3.8-10.6)
[2022-07-30 04:32] LABS: African American GFR (CKD) >90 (>60 ml/min/1.73 sqM); Blood Urea Nitrogen 28 mg/dL (9-20); Calcium 7.9 mg/dL (8.4-10.2); Carbon Dioxide 24 mmol/L (22-30); Non-African American GFR(CKD) >90 (>60 ml/min/1.73 sqM)
[2022-07-30 04:35] LABS: Anion Gap 10 mmol/L; Chloride 111 mmol/L (98-107); Glucose 158 mg/dL (74-99); Potassium 4.1 mmol/L (3.5-5.1); Sodium 145 mmol/L (137-145)
[2022-07-30] MEDS: methylPREDNISolone SOD SUCCI 125 MG/2 ML VIAL IV SCH ×3 (05:11→18:11)
[2022-07-30 05:17] LABS: Glucose,Whole Blood 177 mg/dL (70-110)
[2022-07-30] MEDS: SODIUM CHLORIDE 0.9% 1,000 ML IV SCH (06:37)
--- NOTE | 2022-07-30 07:14 | XR ---
EXAMINATION TYPE: XR chest 1V portable DATE OF EXAM: 07/30/2022 6:13 AM COMPARISON: Chest radiographs from 07/29/2022. TECHNIQUE: XR chest 1V portable Frontal view of the chest. CLINICAL INDICATION:Male, 66 years old with history of pna; FINDINGS: Lungs/Pleura: No pneumothorax or pleural effusion. Similar asymmetric elevation left hemidiaphragm. S imilar interstitial patchy opacities throughout the left lung. Pulmonary vascularity: Unremarkable. Heart/mediastinum: Cardiomediastinal silhouette is prominent in size. Atherosclerotic calcifications are seen in the aorta. Musculoskeletal: No acute fracture. Unchanged pseudosubluxation versus superior subluxation of left g lenohumeral joint. IMPRESSION: 1. Similar patchy and interstitial infiltrates on the left. 2. Similar appearance of pseudosubluxation or superior subluxation of the left glenohumeral joint. T his again may reflect underlying chronic full-thickness rotator cuff tear or neuromuscular deficiency .
[2022-07-30] MEDS: ALPRAZolam 0.5 MG TAB PO PRN (07:27)
[2022-07-30] MEDS: PIPERACILLIN-TAZOBACTAM 3.375 GM in SODIUM CHLORIDE 0.9% 100 ML IVPB SCH ×2 (07:56→15:45)
[2022-07-30] MEDS: IPRATROPIUM-ALBUTEROL 3 ML NEB INHALATION PRN ×5 (08:15→23:43)
[2022-07-30] MEDS: BUDESONIDE 0.5 MG/2 ML NEBU INHALATION SCH ×2 (08:15→19:43)
[2022-07-30] MEDS: FORMOTEROL FUMARATE 20 MCG/2 ML NEBU INHALATION SCH ×2 (08:30→19:44)
[2022-07-30] MEDS: GABAPENTIN 300 MG CAP PO SCH ×3 (08:42→22:18)
[2022-07-30] MEDS: METOPROLOL SUCCINATE (ER) 25 MG TAB.ER.24H PO SCH (08:42)
[2022-07-30] MEDS: guaiFENesin 600 MG TABLET.ER PO SCH ×2 (08:42→22:17)
[2022-07-30] MEDS: FAMOTIDINE 20 MG TAB PO SCH (08:42)
[2022-07-30] MEDS: allopurinoL 300 MG TAB PO SCH (08:42)
[2022-07-30] MEDS: ASPIRIN 81 MG PO SCH (08:42)
[2022-07-30] MEDS: FERROUS SULFATE 325 MG TAB PO SCH (08:42)
[2022-07-30] MEDS: CITALOPRAM HYDROBROMIDE 20 MG TAB PO SCH (08:42)
[2022-07-30] MEDS: ENOXAPARIN 40 MG/0.4 ML SYRINGE SQ SCH (08:43)
--- NOTE | 2022-07-30 12:54 | P.PN ---
Subjective Progress Note Date: 07/30/22 Principal diagnosis: Acute hypoxic respiratory failure secondary to multilobar pneumonia, possibly hospital-acquired pneumonia. And underlying COPD exacerbation This is a pleasant 66-year-old male patient with advanced COPD. The patient is auction dependent and the patient has an FEV1 of 34% predicted consistent with severe COPD and the patient has had multiple hospitalization for COPD exacerbation. The patient was in the hospital on 07/11/2022 and at that time he was positive for cold and 19, treated without any major complications and he was discharged home. He came in today with worsening shortness of breath. The shortness of breath rapidly evolving the patient became quite dyspneic and he came into the hospital and the chest x-ray showed extensive consolidation of the left lung mainly in the left upper lobe and lingular segment and some in the left lower lobe. Based on that, the patient was immediately placed on a BiPAP at a pressure of 12/6 cm of water with FiO2 of 40%. His current respiratory rate is around 27. He is awake and alert. His generating a tidal volume of 750. CTA of the chest was also done in the emergency that showed no evidence of any pulmonary embolism. There was areas of spiculation in the right upper lobe measuring 15 mm suspicious for malignancy. At the same time, there was diffuse consolidation involving the left lung more so on the left upper lobe and to lesser extent in the left lower lobe. There is also some background emphysema as noted. The patient was already given a dose of Zosyn and dose of vancomycin. He was not on bronchodilators. He is started on steroids. He is still short of breath and is using his abdomen to breathe and is doing some abdominal breathing. He is known to have [id number] smoking history and he quit smoking in December 2021. Has rheumatoid arthritis. He has also cardiomyopathy, coronary artery disease, previous coronary stents, previous vascular intervention for peripheral vascular disease including stenting to his lower extremities and he has had previous orthopedic surgeries. He has also gout, chronic anemia, right hip avascular necrosis. He is oxygen dependent and he typically utilizes oxygen at 4 L/m nasal cannula on an outpatient basis. CAT scan of the chest also showed a small to moderate-sized hiatal hernia. 07/26/2022, the patient remains on a BiPAP. He was briefly taken off the BiPAP this morning through the small bites and immediately following that he was placed back on a BiPAP pressure of 12/5 cm both of his current FiO2 is at 40%. He seems to be slightly more comfortable compared to yesterday although he is still tachypneic even while being on a BiPAP. He is able to generate adequate tidal volumes while on the BiPAP. The chest x-ray showing some limited improvement in the extensive left upper lobe pulmonary infiltrate. I would say that his some interval improvement in the pneumonia. The patient was started on broad-spectrum antibiotics and he is on a combination of Zosyn and Levaquin. The white cell count is 11.0 with a hemoglobin of 7.2 which is about compared to yesterday. No evidence of any GI bleeding. Electrodes are within normal limits. Pro calcitonin level was elevated at 0.9 and the patient remains on a combination of bronchodilators and steroids. No other significant events. No altered mentation. No agitation. 07/26/2022, the patient is being seen for a follow-up. The patient's is feeling better. After spending the entire night on a BiPAP at a pressure clover 6 cm the fourth, the patient was placed on oxygen at 5 L nasal cannula. Doing well. Less shortness of breath. There are entry is improved bilaterally. Less bronchospastic and we compared to yesterday. Pneumonia in the left upper lobe was already improving. There was excellent at 6.7. Hemoglobin dropped down to 6.9 and there is no evidence of any acute bleeding. The patient will be given a unit of packed RBC. The rest of electrolytes are old stable for now, sodiums of 139, BUN is 26 and a creatinine of 0.7. As far as cultures, blood cultures were negative. The patient is being treated for possible hospital-acquired pneumonia and he is on a combination of Zosyn and vanco . No altered mentation. No signs of any CO2 narcosis. No encephalopathy at this point in time. He is also on vancomycin. Clinically improving. A repeat chest cystoscopy pending and this needs to be done on a daily basis. Reevaluated today on , patient remains in the ICU, he is marginal at best. Overnight the patient is on BiPAP with IPAP of 12 EPAP of 6, and he was on FiO2 of 35%. This morning he is on 4 L nasal cannula. A black seems to be comfortable, however he was more comfortable on BiPAP. He is on vancomycin and Zosyn empirically. Today's hemoglobin is 8.1. He is hemodynamically stable, not requiring any pressors. Chest x-ray continues to show significant infiltrates /patchy airspace disease within the left lung. Consistent with pneumonia. WBC count today is 6.8 hemoglobin is 8.1 electrodes are normal renal profile is normal. Patient received a unit of packed RBCs since admission for low hemoglobin of 6.9 yesterday Reevaluated today on 07/29/22, patient remains in the ICU, clinically slightly better today compared to yesterday. He has BiPAP at bedside use it yesterday only 2 hours. He is now on 3 L nasal cannula, and he is saturating in the low 90s. Patient remains on Zosyn and vancomycin, however since the cultures are nondiagnostic I will go ahead and keep him on Zosyn and discontinue vancomycin. Chest x-ray today continues to show significant infiltrate in the left lung, but improved compared to the previous chest x-ray. WBC count is 5.4 hemoglobin 8.4 electrodes are normal renal profile is normal Reevaluated today on 07/30/22, patient remains in the ICU, remains marginal at best, intermittently on BiPAP 12/6/35%, he is now on 3 days nasal cannula, O2 saturation is in the 90s. Patient is having intermittent episodes of nausea vomiting, shortness of breath and wheezing, he is receiving Xanax and Ativan, patient remains on Zosyn. His Pro calcitonin level was 5.6. Patient clearly h as significant infiltrate in the left lung, and he has underlying severe COPD. Started out as a left upper lobe infiltrate, and seems to have progressed. Chest x-ray seems to be slightly better compared to the last 2 days. Clinically however the patient does not seem to be making significant progress WBC count today is 6.3 hemoglobin 8.5 electrolytes are normal sodium is a bit elevated at 145, basic metabolic profile is normal renal profile is normal Objective - Vital Signs Vital signs: Vital Signs Temp 97.5 F L 07/30/22 08:00 Pulse 92 07/30/22 12:28 Resp 25 H 07/30/22 11:00 BP 147/78 07/30/22 11:00 Pulse Ox 95 07/30/22 11:00 FiO2 35 07/30/22 11:00 Intake & Output 07/29/22 07/30/22 07/30/22 18:59 06:59 18:59 Intake Total 800 410 260 Output Total 1035 850 400 Balance -235 -440 -140 Weight 66 kg Intake: IV 320 320 40 Piperacillin-Tazobactam 3 200 100 .375 gm In Sodium Chloride 0.9% 100 ml @ 25 mls/hr IVPB Q8HR [facility] Rx# :[id number] Sodium Chloride 0.9% 1, 120 220 40 000 ml @ 20 mls/hr IV . Q24H [facility] Rx#:[id number] Oral 480 90 220 Output: Urine 785 700 400 Emesis 250 150 Other: Voiding Method Urinal Urinal Urinal # Voids 1 - Exam GENERAL EXAM: Revealed a 66-year-old white male in mild distress. Presently on 3 L nasal cannula , used BiPAP for hours yesterday only. HEAD: Normocephalic. Atraumatic. EYES: Normal reaction of pupils, equal size. NOSE: Clear with pink turbinates. THROAT: No erythema or exudates. NECK: No masses, no JVD. CHEST: No chest wall deformity. LUNGS: Less crackles and rhonchi today compared to yesterday CVS: S1 and S2 normal with no audible murmur, regular rhythm. ABDOMEN: No hepatosplenomegaly, normal bowel sounds, no guarding or rigidity. SKIN: No rashes CENTRAL NERVOUS SYSTEM: Alert and oriented 3 no gross focal deficits EXTREMITIES: No clubbing edema or cyanosis. Psychiatric: Normal mood affect and normal mental status examination. - Labs CBC & Chem 7: 07/30/22 03:06 07/30/22 03:06 Labs: Abnormal Lab Results - Last 24 Hours (Table) 07/29/22 07/30/22 07/30/22 Range/Units 04:43 03:06 03:06 RBC 2.70 L (4.30-5.90) m/uL Hgb 8.5 L (13.0-17.5) gm/dL Hct 27.0 L (39.0-53.0) % RDW 16.4 H (11.5-15.5) % Plt Count 142 L (150-450) k/uL Lymphocytes # 0.2 L (1.0-4.8) k/uL Chloride 111 H (98-107) mmol/L BUN 28 H (9-20) mg/dL Glucose 158 H (74-99) mg/dL POC Glucose (mg/dL) (70-110) mg/dL Calcium 7.9 L (8.4-10.2) mg/dL Procalcitonin 5.68 H (0.02-0.09) ng/mL 07/30/22 Range/Units 05:14 RBC (4.30-5.90) m/uL Hgb (13.0-17.5) gm/dL Hct (39.0-53.0) % RDW (11.5-15.5) % Plt Count (150-450) k/uL Lymphocytes # (1.0-4.8) k/uL Chloride (98-107) mmol/L BUN (9-20) mg/dL Glucose (74-99) mg/dL POC Glucose (mg/dL) 177 H (70-110) mg/dL Calcium (8.4-10.2) mg/dL Procalcitonin (0.02-0.09) ng/mL Microbiology - Last 24 Hours (Table) 07/25/22 11:40 Blood Culture - Preliminary Blood No Growth after 96 hours 07/25/22 11:37 Blood Culture - Preliminary Blood No Growth after 96 hours Assessment and Plan Assessment: Impression: Acute on chronic hypoxic respiratory failure secondary to extensive left-sided pneumonia possibly hospital-acquired pneumonia. And secondary to acute exacerbation of COPD Severe underlying COPD Acute kidney injury secondary to above Acute exacerbation of COPD Chronic hypoxic respiratory failure, patient is normally on oxygen for his underlying COPD, FEV1 of 34% History of current 19 infection Underlying coronary arteriosclerosis and previous stent placement Peripheral vessel occlusive disease [id number] smoking history quit in December of 2021 Benign essential hypertension Dyslipidemia History of rheumatoid arthritis History of multiple orthopedic surgeries History of severe cardiomyopathy/ischemic in nature ejection fraction 35%. Recommendation: Continue oxygen and titrate accordingly use BiPAP as needed Continue antibiotics Zosyn , blood cultures have been negative sputum cultures nondiagnostic Continue bronchodilators Continue IV Solu-Medrol Continue subcu heparin for DVT prophylaxis Continue GI prophylaxis/Protonix Continue to monitor in ICU Time with Patient: Less than 30
[2022-07-30 13:07] VITALS: BMI 20.8
[2022-07-30] MEDS: hydrALAZINE HCL 20 MG/ML 1 ML VIAL IVP PRN (15:45)
[2022-07-30] MEDS: DEXMEDETOMIDINE/0.9% NACL(PMX) 400 MCG in EMPTY BAG 1 BAG IV SCH ×2 (16:26→22:56)
--- NOTE | 2022-07-30 20:50 | P.PN ---
Subjective Progress Note Date: 07/30/22 This is a 66-year-old gentleman admitted with acute COPD exacerbation, multilobar pneumonia, severe COPD, history of recent covid, multiple frequent admissions regarding his acute hypoxic respiratory failure/COPD. Yesterday required a unit of packed RBCs for hemoglobin of 6.9, hemoglobin currently 8.1 Overnight patient became BiPAP dependent and is currently on BiPAP this morning. Chest CTA had reported to 15.5 mm spiculated mass right upper lobe highly suspicious for malignancy with 3 large scattered diffuse areas to partially consolidative and interstitial opacity in the left upper and lower lobes consistent with pneumonia, a few scattered tiny sclerotic densities in the thoracic spine, possible metastasis, large hiatal hernia, with no mediastinal hilar or axillary adenopathy. Chest x-ray reporting similar patchy airspace disease within the left lung, correlate for pneumonia, COPD changes. Continues on empiric antibiotics of Zosyn and vancomycin. Renal function stable. Afebrile, normal WBC. Blood cultures reporting no growth to date. Potassium 3.4, receiving supplementation per ICU protocol. 07/29/22 Maintained on Bipap,, O2 sats in the 90s. Code status changed to No code as per patient's request. Chest x-ray reporting similar patchy and interstitial infiltrates on the left, improving aeration on the right with similar appearances pseudosubluxation or superior subluxation of the left glenoid humeral joint. Maintained on vancomycin and Zosyn. Afebrile, normal WBC. Preliminary Blood cultures reporting no growth. 07/30/22 patient is currently off BiPAP his O2 sats remained low. He still has similar chest x-ray appearance as of yesterday continue IV vancomycin and Zosyn continue maximum pulmonary support. Patient denies any fever. He does admit to some nausea this morning which she is on IV Reglan for. Objective - Vital Signs Vital signs: Vital Signs Temp 97.8 F 07/30/22 16:00 Pulse 88 07/30/22 19:44 Resp 27 H 07/30/22 19:00 BP 127/55 07/30/22 19:00 Pulse Ox 96 07/30/22 19:00 FiO2 35 07/30/22 19:44 Intake & Output 07/30/22 07/30/22 07/31/22 06:59 18:59 06:59 Intake Total 410 439.553 20 Output Total 850 900 Balance -440 -460.447 20 Weight 66 kg 66 kg Intake: IV 320 200 20 Piperacillin-Tazobactam 3 100 100 .375 gm In Sodium Chloride 0.9% 100 ml @ 25 mls/hr IVPB Q8HR [facility] Rx# :[id number] Sodium Chloride 0.9% 1, 220 100 20 000 ml @ 20 mls/hr IV . Q24H [facility] Rx#:[id number] Intake, IV Titration 19.553 Amount Dexmedetomidine/0.9% NaCl 19.553 (Pmx) 400 mcg In Empty Bag 1 bag @ 0.2 MCG/KG/HR 3.3 mls/hr IV .Q24H [facility] Rx#:[id number] Oral 90 220 Output: Urine 700 900 Emesis 150 Other: Voiding Method Urinal Urinal # Voids 1 - Exam GENERAL: Alert and oriented 3 ,SItting up in bed, fatiqued, wearing Bipap HEENT: Normocephalic. Pupils reactive. Neck: supple, CHEST EXAMINATION: Trachea is central. Symmetrical expansion. Scattered coarse rhonchi with crackles. CARDIAC: Normal S1, S2 with no gallops. No murmurs. ABDOMEN: Soft. Nontender, Bowel sounds normal. No organomegaly. No guarding. Extremities: reveal no edema. No clubbing or cyanosis evidence of Neurological: Cranial nerves 2 through 12 grossly intact. No focal deficits noted Skin: Warm and dry, No rash. - Labs CBC & Chem 7: 07/30/22 03:06 07/30/22 03:06 Labs: Abnormal Lab Results - Last 24 Hours (Table) 07/30/22 07/30/22 07/30/22 Range/Units 03:06 03:06 05:14 RBC 2.70 L (4.30-5.90) m/uL Hgb 8.5 L (13.0-17.5) gm/dL Hct 27.0 L (39.0-53.0) % RDW 16.4 H (11.5-15.5) % Plt Count 142 L (150-450) k/uL Lymphocytes # 0.2 L (1.0-4.8) k/uL Chloride 111 H (98-107) mmol/L BUN 28 H (9-20) mg/dL Glucose 158 H (74-99) mg/dL POC Glucose (mg/dL) 177 H (70-110) mg/dL Calcium 7.9 L (8.4-10.2) mg/dL Microbiology - Last 24 Hours (Table) 07/25/22 11:40 Blood Culture - Preliminary Blood No Growth after 120 hours 07/25/22 11:37 Blood Culture - Preliminary Blood No Growth after 120 hours Assessment and Plan (1) Acute kidney injury Current Visit: Yes Status: Acute Code(s): N17.9 - ACUTE KIDNEY FAILURE, UNSPECIFIED SNOMED Code(s): 22094994 (2) Acute respiratory failure Current Visit: Yes Status: Acute Code(s): J96.00 - ACUTE RESPIRATORY FAILURE, UNSP W HYPOXIA OR HYPERCAPNIA SNOMED Code(s): 52134279 (3) COPD exacerbation Current Visit: Yes Status: Acute Code(s): J44.1 - CHRONIC OBSTRUCTIVE PULMONARY DISEASE W (ACUTE) EXACERBATION SNOMED Code(s): 684929724 (4) Chronic anemia Current Visit: Yes Status: Acute Code(s): D64.9 - ANEMIA, UNSPECIFIED SNOMED Code(s): 726065339 (5) Pneumonia Current Visit: Yes Status: Acute Code(s): J18.9 - PNEUMONIA, UNSPECIFIED ORGANISM SNOMED Code(s): 043508882 Plan: Continue on current medication regime ,monitoring and symptomatic treatment. Aggressive pulmonary toileting with Empiric antibiotics-vancomycin discontinued, BiPAP , nebulized bronchodilators, IV steroids. ICU management As per hussain ashby. Prognosis guarded given multiple complex medical issues. By early afternoon patient has been weaned to 3 L nasal cannula maintaining O2 sats in the high 90s.
[2022-07-30] MEDS: ATORVASTATIN 80 MG TAB PO SCH (22:17)
[2022-07-30] MEDS: DONEPEZIL 5 MG TAB PO SCH (22:17)
[2022-07-30] MEDS: hydrOXYzine HCL 25 MG TAB PO SCH (22:17)
[2022-07-31] MEDS: PIPERACILLIN-TAZOBACTAM 3.375 GM in SODIUM CHLORIDE 0.9% 100 ML IVPB SCH ×4 (00:03→23:50)
[2022-07-31] MEDS: methylPREDNISolone SOD SUCCI 125 MG/2 ML VIAL IV SCH ×5 (00:06→23:49)
[2022-07-31] MEDS: ONDANSETRON 4 MG/2 ML VIAL IVP PRN (01:16)
[2022-07-31] MEDS: hydrALAZINE HCL 20 MG/ML 1 ML VIAL IVP PRN (01:31)
[2022-07-31] MEDS: IPRATROPIUM-ALBUTEROL 3 ML NEB INHALATION PRN ×6 (03:45→23:39)
[2022-07-31 04:14] LABS: Basophils % (A) 0 %; Eosinophils % (A) 0 %; HCT 26.3 % (39.0-53.0); HGB 8.3 gm/dL (13.0-17.5); Hypochromasia Marked; Lymphocytes # (A) 0.1 k/uL (1.0-4.8); Lymphocytes % (A) 3 %; MCH 31.6 pg (25.0-35.0); MCHC 31.5 g/dL (31.0-37.0); MCV 100.3 fL (80.0-100.0); Macrocytosis Slight; Mean Platelet Volume 8.4; Monocytes # (A) 0.2 k/uL (0-1.0); Monocytes % (A) 4 %; Neutrophils # (A) 4.1 k/uL (1.3-7.7); Neutrophils % (A) 92 %; Platelet Count 121 k/uL (150-450); RBC 2.62 m/uL (4.30-5.90); RDW 15.9 % (11.5-15.5); WBC 4.4 k/uL (3.8-10.6)
[2022-07-31 04:39] LABS: African American GFR (CKD) >90 (>60 ml/min/1.73 sqM); Anion Gap 10 mmol/L; Blood Urea Nitrogen 28 mg/dL (9-20); Carbon Dioxide 25 mmol/L (22-30); Chloride 110 mmol/L (98-107); Glucose 152 mg/dL (74-99); Non-African American GFR(CKD) >90 (>60 ml/min/1.73 sqM); Potassium 4.1 mmol/L (3.5-5.1); Sodium 145 mmol/L (137-145)
[2022-07-31] MEDS: DEXMEDETOMIDINE/0.9% NACL(PMX) 400 MCG in EMPTY BAG 1 BAG IV SCH ×3 (06:00→21:50)
[2022-07-31] MEDS: SODIUM CHLORIDE 0.9% 1,000 ML IV SCH (06:18)
--- NOTE | 2022-07-31 06:19 | XR ---
EXAMINATION TYPE: XR chest 1V portable DATE OF EXAM: 07/31/2022 CLINICAL HISTORY: Difficulty breathing and pneumonia progress study. TECHNIQUE: Single AP portable semiupright view of the chest is obtained. COMPARISON: Chest x-ray from one day earlier and older studies. FINDINGS: There is elevated left hemidiaphragm. Chronic parenchymal changes bilaterally with left mahoney prahilar and left basilar opacities redemonstrated. Stable cardiomegaly with atherosclerotic change a ortic knob. Osseous structures remain demineralized. Suspected subluxation at left glenohumeral joint is less well-seen on current study. Old posterior lateral right mid rib fractures are redemonstrated . IMPRESSION: Chronic parenchymal changes with persistent left suprahilar and left basilar acute infilt rates and/or atelectasis. No significant change from 1 day earlier.
[2022-07-31] MEDS: BUDESONIDE 0.5 MG/2 ML NEBU INHALATION SCH ×2 (07:36→20:14)
[2022-07-31] MEDS: FORMOTEROL FUMARATE 20 MCG/2 ML NEBU INHALATION SCH ×2 (07:54→20:14)
[2022-07-31] MEDS: guaiFENesin 600 MG TABLET.ER PO SCH ×2 (09:00→21:31)
[2022-07-31] MEDS: ENOXAPARIN 40 MG/0.4 ML SYRINGE SQ SCH (09:00)
[2022-07-31] MEDS: allopurinoL 300 MG TAB PO SCH (09:01)
[2022-07-31] MEDS: FERROUS SULFATE 325 MG TAB PO SCH (09:01)
[2022-07-31] MEDS: FAMOTIDINE 20 MG TAB PO SCH (09:01)
[2022-07-31] MEDS: CITALOPRAM HYDROBROMIDE 20 MG TAB PO SCH (09:01)
[2022-07-31] MEDS: ASPIRIN 81 MG PO SCH (09:01)
[2022-07-31] MEDS: GABAPENTIN 300 MG CAP PO SCH ×3 (09:01→21:31)
[2022-07-31] MEDS: METOPROLOL SUCCINATE (ER) 25 MG TAB.ER.24H PO SCH (09:01)
[2022-07-31] MEDS: FUROSEMIDE 10 MG/ML 4 ML VIAL IV SCH ×2 (09:50→21:31)
[2022-07-31] MEDS ORDERED: DEXTROSE 5% IN WATER 1,000 ML IV ONE (12:08)
--- NOTE | 2022-07-31 12:11 | P.PN ---
Subjective Progress Note Date: 07/31/22 Principal diagnosis: Acute hypoxic respiratory failure secondary to multilobar pneumonia, possibly hospital-acquired pneumonia. And underlying COPD exacerbation This is a pleasant 66-year-old male patient with advanced COPD. The patient is auction dependent and the patient has an FEV1 of 34% predicted consistent with severe COPD and the patient has had multiple hospitalization for COPD exacerbation. The patient was in the hospital on 07/11/2022 and at that time he was positive for cold and 19, treated without any major complications and he was discharged home. He came in today with worsening shortness of breath. The shortness of breath rapidly evolving the patient became quite dyspneic and he came into the hospital and the chest x-ray showed extensive consolidation of the left lung mainly in the left upper lobe and lingular segment and some in the left lower lobe. Based on that, the patient was immediately placed on a BiPAP at a pressure of 12/6 cm of water with FiO2 of 40%. His current respiratory rate is around 27. He is awake and alert. His generating a tidal volume of 750. CTA of the chest was also done in the emergency that showed no evidence of any pulmonary embolism. There was areas of spiculation in the right upper lobe measuring 15 mm suspicious for malignancy. At the same time, there was diffuse consolidation involving the left lung more so on the left upper lobe and to lesser extent in the left lower lobe. There is also some background emphysema as noted. The patient was already given a dose of Zosyn and dose of vancomycin. He was not on bronchodilators. He is started on steroids. He is still short of breath and is using his abdomen to breathe and is doing some abdominal breathing. He is known to have [id number] smoking history and he quit smoking in December 2021. Has rheumatoid arthritis. He has also cardiomyopathy, coronary artery disease, previous coronary stents, previous vascular intervention for peripheral vascular disease including stenting to his lower extremities and he has had previous orthopedic surgeries. He has also gout, chronic anemia, right hip avascular necrosis. He is oxygen dependent and he typically utilizes oxygen at 4 L/m nasal cannula on an outpatient basis. CAT scan of the chest also showed a small to moderate-sized hiatal hernia. 07/26/2022, the patient remains on a BiPAP. He was briefly taken off the BiPAP this morning through the small bites and immediately following that he was placed back on a BiPAP pressure of 12/5 cm both of his current FiO2 is at 40%. He seems to be slightly more comfortable compared to yesterday although he is still tachypneic even while being on a BiPAP. He is able to generate adequate tidal volumes while on the BiPAP. The chest x-ray showing some limited improvement in the extensive left upper lobe pulmonary infiltrate. I would say that his some interval improvement in the pneumonia. The patient was started on broad-spectrum antibiotics and he is on a combination of Zosyn and Levaquin. The white cell count is 11.0 with a hemoglobin of 7.2 which is about compared to yesterday. No evidence of any GI bleeding. Electrodes are within normal limits. Pro calcitonin level was elevated at 0.9 and the patient remains on a combination of bronchodilators and steroids. No other significant events. No altered mentation. No agitation. 07/26/2022, the patient is being seen for a follow-up. The patient's is feeling better. After spending the entire night on a BiPAP at a pressure clover 6 cm the fourth, the patient was placed on oxygen at 5 L nasal cannula. Doing well. Less shortness of breath. There are entry is improved bilaterally. Less bronchospastic and we compared to yesterday. Pneumonia in the left upper lobe was already improving. There was excellent at 6.7. Hemoglobin dropped down to 6.9 and there is no evidence of any acute bleeding. The patient will be given a unit of packed RBC. The rest of electrolytes are old stable for now, sodiums of 139, BUN is 26 and a creatinine of 0.7. As far as cultures, blood cultures were negative. The patient is being treated for possible hospital-acquired pneumonia and he is on a combination of Zosyn and vanco . No altered mentation. No signs of any CO2 narcosis. No encephalopathy at this point in time. He is also on vancomycin. Clinically improving. A repeat chest cystoscopy pending and this needs to be done on a daily basis. Reevaluated today on , patient remains in the ICU, he is marginal at best. Overnight the patient is on BiPAP with IPAP of 12 EPAP of 6, and he was on FiO2 of 35%. This morning he is on 4 L nasal cannula. A black seems to be comfortable, however he was more comfortable on BiPAP. He is on vancomycin and Zosyn empirically. Today's hemoglobin is 8.1. He is hemodynamically stable, not requiring any pressors. Chest x-ray continues to show significant infiltrates /patchy airspace disease within the left lung. Consistent with pneumonia. WBC count today is 6.8 hemoglobin is 8.1 electrodes are normal renal profile is normal. Patient received a unit of packed RBCs since admission for low hemoglobin of 6.9 yesterday Reevaluated today on 07/29/22, patient remains in the ICU, clinically slightly better today compared to yesterday. He has BiPAP at bedside use it yesterday only 2 hours. He is now on 3 L nasal cannula, and he is saturating in the low 90s. Patient remains on Zosyn and vancomycin, however since the cultures are nondiagnostic I will go ahead and keep him on Zosyn and discontinue vancomycin. Chest x-ray today continues to show significant infiltrate in the left lung, but improved compared to the previous chest x-ray. WBC count is 5.4 hemoglobin 8.4 electrodes are normal renal profile is normal Reevaluated today on 07/30/22, patient remains in the ICU, remains marginal at best, intermittently on BiPAP 12/6/35%, he is now on 3 days nasal cannula, O2 saturation is in the 90s. Patient is having intermittent episodes of nausea vomiting, shortness of breath and wheezing, he is receiving Xanax and Ativan, patient remains on Zosyn. His Pro calcitonin level was 5.6. Patient clearly h as significant infiltrate in the left lung, and he has underlying severe COPD. Started out as a left upper lobe infiltrate, and seems to have progressed. Chest x-ray seems to be slightly better compared to the last 2 days. Clinically however the patient does not seem to be making significant progress WBC count today is 6.3 hemoglobin 8.5 electrolytes are normal sodium is a bit elevated at 145, basic metabolic profile is normal renal profile is normal Reevaluated today on 07/31/22, patient remains in the ICU, he is now on Precedex at 0.8 mcg/kg/h, he is on BiPAP 35% 12/6. Seems to be more comfortable, tolerating BiPAP much better, chest x-ray continues to show left upper lobe infiltrate, however seems to be slightly better, and suspect some component of mild interstitial edema. Today the patient seems to be a bit better compared to yesterday, nonetheless he remains quite ill, and prognosis remains very guarded. WBC count is 4.4 hemoglobin is 8.3 electrolytes are normal except for slightly elevated sodium of 145, hence we'll change the main IV fluid to D5W and on it at a low rate. Patient remains on antibiotics, Zosyn, his also on steroids, and Lasix 40 mg IV push every 12 hours. Patient is on multiple bronchodilators. Objective - Vital Signs Vital signs: Vital Signs Temp 98.8 F 07/31/22 08:00 Pulse 75 07/31/22 11:12 Resp 25 H 07/31/22 11:00 BP 152/70 07/31/22 11:00 Pulse Ox 97 07/31/22 11:00 FiO2 35 07/31/22 11:00 Intake & Output 07/30/22 07/31/22 07/31/22 18:59 06:59 18:59 Intake Total 439.553 428.28 115 Output Total 900 640 645 Balance -460.447 -211.72 -530 Weight 66 kg 66.8 kg Intake: IV 200 280 115 Piperacillin-Tazobactam 3 100 100 75 .375 gm In Sodium Chloride 0.9% 100 ml @ 25 mls/hr IVPB Q8HR [facility] Rx# :[id number] Sodium Chloride 0.9% 1, 100 180 40 000 ml @ 20 mls/hr IV . Q24H [facility] Rx#:[id number] Intake, IV Titration 19.553 148.28 Amount Dexmedetomidine/0.9% NaCl 19.553 148.28 (Pmx) 400 mcg In Empty Bag 1 bag @ 0.2 MCG/KG/HR 3.3 mls/hr IV .Q24H [facility] Rx#:[id number] Oral 220 Output: Urine 900 640 645 Other: Voiding Method Urinal Urinal Indwelling Catheter - Exam GENERAL EXAM: Revealed a 66-year-old white male on BiPAP, he is also on Precedex, seems to be comfortable. HEAD: Normocephalic. Atraumatic. EYES: Normal reaction of pupils, equal size. NOSE: Clear with pink turbinates. THROAT: No erythema or exudates. NECK: No masses, no JVD. CHEST: No chest wall deformity. LUNGS: Crackles and rhonchi noted bilaterally CVS: S1 and S2 normal with no audible murmur, regular rhythm. ABDOMEN: No hepatosplenomegaly, normal bowel sounds, no guarding or rigidity. SKIN: No rashes CENTRAL NERVOUS SYSTEM: Alert and oriented 3 no gross focal deficits EXTREMITIES: No clubbing edema or cyanosis. Psychiatric: Normal mood affect and normal mental status examination. - Labs CBC & Chem 7: 07/31/22 03:10 07/31/22 03:10 Labs: Abnormal Lab Results - Last 24 Hours (Table) 07/31/22 07/31/22 Range/Units 03:10 03:10 RBC 2.62 L (4.30-5.90) m/uL Hgb 8.3 L (13.0-17.5) gm/dL Hct 26.3 L (39.0-53.0) % MCV 100.3 H (80.0-100.0) fL RDW 15.9 H (11.5-15.5) % Plt Count 121 L (150-450) k/uL Lymphocytes # 0.1 L (1.0-4.8) k/uL Chloride 110 H (98-107) mmol/L BUN 28 H (9-20) mg/dL Glucose 152 H (74-99) mg/dL Calcium 8.0 L (8.4-10.2) mg/dL Microbiology - Last 24 Hours (Table) 07/25/22 11:40 Blood Culture - Preliminary Blood No Growth after 120 hours 07/25/22 11:37 Blood Culture - Preliminary Blood No Growth after 120 hours Assessment and Plan Assessment: Impression: Acute on chronic hypoxic respiratory failure secondary to extensive left-sided pneumonia possibly hospital-acquired pneumonia. And secondary to acute exacerbation of COPD Severe underlying COPD Acute kidney injury secondary to above Acute exacerbation of COPD Chronic hypoxic respiratory failure, patient is normally on oxygen for his underlying COPD, FEV1 of 34% History of current 19 infection Underlying coronary arteriosclerosis and previous stent placement Peripheral vessel occlusive disease [id number] smoking history quit in December of 2021 Benign essential hypertension Dyslipidemia History of rheumatoid arthritis History of multiple orthopedic surgeries History of severe cardiomyopathy/ischemic in nature ejection fraction 35%. Recommendation: Continue BiPAP 12/6 /35% Continue antibiotics Zosyn Continue bronchodilators Continue IV Solu-Medrol Continue subcu heparin for DVT prophylaxis Continue GI prophylaxis/Protonix Continue Precedex so that the patient couldn't tolerate BiPAP without any difficulty and that seems to be working. Continue to monitor in ICU Time with Patient: Less than 30
[2022-07-31 17:19] LABS: Glucose,Whole Blood 159 mg/dL (70-110)
[2022-07-31] MEDS: ATORVASTATIN 80 MG TAB PO SCH (21:31)
[2022-07-31] MEDS: DONEPEZIL 5 MG TAB PO SCH (21:31)
[2022-07-31] MEDS: hydrOXYzine HCL 25 MG TAB PO SCH (21:31)
--- NOTE | 2022-07-31 23:05 | P.PN ---
Subjective Progress Note Date: 07/31/22 This is a 66-year-old gentleman admitted with acute COPD exacerbation, multilobar pneumonia, severe COPD, history of recent covid, multiple frequent admissions regarding his acute hypoxic respiratory failure/COPD. Yesterday required a unit of packed RBCs for hemoglobin of 6.9, hemoglobin currently 8.1 Overnight patient became BiPAP dependent and is currently on BiPAP this morning. Chest CTA had reported to 15.5 mm spiculated mass right upper lobe highly suspicious for malignancy with 3 large scattered diffuse areas to partially consolidative and interstitial opacity in the left upper and lower lobes consistent with pneumonia, a few scattered tiny sclerotic densities in the thoracic spine, possible metastasis, large hiatal hernia, with no mediastinal hilar or axillary adenopathy. Chest x-ray reporting similar patchy airspace disease within the left lung, correlate for pneumonia, COPD changes. Continues on empiric antibiotics of Zosyn and vancomycin. Renal function stable. Afebrile, normal WBC. Blood cultures reporting no growth to date. Potassium 3.4, receiving supplementation per ICU protocol. 07/29/22 Maintained on Bipap,, O2 sats in the 90s. Code status changed to No code as per patient's request. Chest x-ray reporting similar patchy and interstitial infiltrates on the left, improving aeration on the right with similar appearances pseudosubluxation or superior subluxation of the left glenoid humeral joint. Maintained on vancomycin and Zosyn. Afebrile, normal WBC. Preliminary Blood cultures reporting no growth. 07/30/22 patient is currently off BiPAP his O2 sats remained low. He still has similar chest x-ray appearance as of yesterday continue IV vancomycin and Zosyn continue maximum pulmonary support. Patient denies any fever. He does admit to some nausea this morning which she is on IV Reglan for. 07/31/22 Patient seen today back on Ventimask rebreather still desaturating with difficulty breathing and poor air exchange. The patient remains afebrile. Patient still has diminished appetite. He denies any pain. Objective - Vital Signs Vital signs: Vital Signs Temp 97.7 F 07/31/22 20:00 Pulse 71 07/31/22 21:00 Resp 21 07/31/22 21:00 BP 143/71 07/31/22 21:00 Pulse Ox 97 07/31/22 21:00 FiO2 35 07/31/22 20:15 Intake & Output 07/31/22 07/31/22 08/01/22 06:59 18:59 06:59 Intake Total 428.28 1106.8 500.00 Output Total 640 1970 250 Balance -211.72 -863.2 250.00 Weight 66.8 kg Intake: IV 280 260 150 Dextrose 5% in Water 1, 150 000 ml @ 50 mls/hr IV . Q20H [facility] Rx#:[id number] Piperacillin-Tazobactam 3 100 200 .375 gm In Sodium Chloride 0.9% 100 ml @ 25 mls/hr IVPB Q8HR [facility] Rx# :[id number] Sodium Chloride 0.9% 1, 180 60 000 ml @ 20 mls/hr IV . Q24H [facility] Rx#:[id number] Intake, IV Titration 148.28 346.8 100.00 Amount Dexmedetomidine/0.9% NaCl 148.28 96.8 100.00 (Pmx) 400 mcg In Empty Bag 1 bag @ 0.2 MCG/KG/HR 3.3 mls/hr IV .Q24H [facility] Rx#:[id number] Dextrose 5% in Water 1, 250 000 ml @ 50 mls/hr IV . Q20H [facility] Rx#:[id number] Oral 500 250 Output: Urine 640 1970 250 Other: Voiding Method Urinal Indwelling Catheter Indwelling Catheter - Exam GENERAL: Alert and oriented 3 ,SItting up in bed, fatiqued, wearing Bipap HEENT: Normocephalic. Pupils reactive. Neck: supple, CHEST EXAMINATION: Trachea is central. Symmetrical expansion. Scattered coarse rhonchi with crackles. CARDIAC: Normal S1, S2 with no gallops. No murmurs. ABDOMEN: Soft. Nontender, Bowel sounds normal. No organomegaly. No guarding. Extremities: reveal no edema. No clubbing or cyanosis evidence of Neurological: Cranial nerves 2 through 12 grossly intact. No focal deficits noted Skin: Warm and dry, No rash. - Labs CBC & Chem 7: 07/31/22 03:10 07/31/22 03:10 Labs: Abnormal Lab Results - Last 24 Hours (Table) 07/31/22 07/31/22 07/31/22 Range/Units 03:10 03:10 17:17 RBC 2.62 L (4.30-5.90) m/uL Hgb 8.3 L (13.0-17.5) gm/dL Hct 26.3 L (39.0-53.0) % MCV 100.3 H (80.0-100.0) fL RDW 15.9 H (11.5-15.5) % Plt Count 121 L (150-450) k/uL Lymphocytes # 0.1 L (1.0-4.8) k/uL Chloride 110 H (98-107) mmol/L BUN 28 H (9-20) mg/dL Glucose 152 H (74-99) mg/dL POC Glucose (mg/dL) 159 H (70-110) mg/dL Calcium 8.0 L (8.4-10.2) mg/dL Microbiology - Last 24 Hours (Table) 07/25/22 11:40 Blood Culture - Final Blood No Growth after 144 hours 07/25/22 11:37 Blood Culture - Final Blood No Growth after 144 hours Assessment and Plan (1) Acute kidney injury Current Visit: Yes Status: Acute Code(s): N17.9 - ACUTE KIDNEY FAILURE, UNSPECIFIED SNOMED Code(s): 93250645 (2) Acute respiratory failure Current Visit: Yes Status: Acute Code(s): J96.00 - ACUTE RESPIRATORY FAILURE, UNSP W HYPOXIA OR HYPERCAPNIA SNOMED Code(s): 33750725 (3) COPD exacerbation Current Visit: Yes Status: Acute Code(s): J44.1 - CHRONIC OBSTRUCTIVE PULMONARY DISEASE W (ACUTE) EXACERBATION SNOMED Code(s): 431295137 (4) Chronic anemia Current Visit: Yes Status: Acute Code(s): D64.9 - ANEMIA, UNSPECIFIED SNOMED Code(s): 963440475 (5) Pneumonia Current Visit: Yes Status: Acute Code(s): J18.9 - PNEUMONIA, UNSPECIFIED ORGANISM SNOMED Code(s): 093030807 Plan: Continue on current medication regime ,monitoring and symptomatic treatment. Aggressive pulmonary toileting with Empiric antibiotics-vancomycin discontinued, BiPAP , nebulized bronchodilators, IV steroids. ICU management As per coding director. Prognosis guarded given multiple complex medical issues. By early afternoon patient has been weaned to 3 L nasal cannula maintaining O2 sats in the high 90s.
[2022-08-01 03:47] LABS: Basophils % (A) 0 %; Eosinophils % (A) 0 %; HCT 26.2 % (39.0-53.0); HGB 8.6 gm/dL (13.0-17.5); Hypochromasia Slight; Lymphocytes # (A) 0.1 k/uL (1.0-4.8); Lymphocytes % (A) 4 %; MCH 31.5 pg (25.0-35.0); MCHC 32.7 g/dL (31.0-37.0); MCV 96.6 fL (80.0-100.0); Mean Platelet Volume 8.8; Monocytes # (A) 0.2 k/uL (0-1.0); Monocytes % (A) 6 %; Neutrophils # (A) 2.8 k/uL (1.3-7.7); Neutrophils % (A) 90 %; Platelet Count 124 k/uL (150-450); RBC 2.72 m/uL (4.30-5.90); RDW 15.6 % (11.5-15.5); WBC 3.1 k/uL (3.8-10.6)
[2022-08-01 04:00] LABS: African American GFR (CKD) >90 (>60 ml/min/1.73 sqM); Anion Gap 8 mmol/L; Blood Urea Nitrogen 31 mg/dL (9-20); Calcium 7.8 mg/dL (8.4-10.2); Carbon Dioxide 29 mmol/L (22-30); Chloride 99 mmol/L (98-107); Glucose 191 mg/dL (74-99); Non-African American GFR(CKD) 85 (>60 ml/min/1.73 sqM); Sodium 136 mmol/L (137-145)
[2022-08-01] MEDS: methylPREDNISolone SOD SUCCI 125 MG/2 ML VIAL IV SCH ×4 (06:06→23:51)
[2022-08-01] MEDS: POTASSIUM CHLORIDE 10 MEQ in WATER FOR INJECTION 1 100ML.BAG IVPB SCH ×4 (06:07→11:02)
--- NOTE | 2022-08-01 07:31 | XR ---
EXAMINATION TYPE: XR chest 1V portable DATE OF EXAM: 08/01/2022 4:51 AM COMPARISON: Chest radiograph from one day prior. TECHNIQUE: XR chest 1V portable Portable AP radiograph of the chest. CLINICAL INDICATION:Male, 66 years old with history of pneumonia; FINDINGS: Lungs/Pleura: Similar multifocal airspace opacities. No evidence of pneumothorax. Small left pleural effusion. Pulmonary vascularity: Unremarkable. Heart/mediastinum: Cardiomediastinal silhouette is unremarkable. Atherosclerotic calcifications are seen in the aorta. Musculoskeletal: No acute osseous pathology. IMPRESSION: 1. Similar multifocal airspace opacities. 2. Small left pleural effusion.
[2022-08-01] MEDS: FORMOTEROL FUMARATE 20 MCG/2 ML NEBU INHALATION SCH ×2 (08:22→19:27)
[2022-08-01] MEDS: IPRATROPIUM-ALBUTEROL 3 ML NEB INHALATION PRN ×4 (08:22→19:27)
[2022-08-01] MEDS: BUDESONIDE 0.5 MG/2 ML NEBU INHALATION SCH ×2 (08:22→19:27)
[2022-08-01] MEDS: ENOXAPARIN 40 MG/0.4 ML SYRINGE SQ SCH (08:27)
[2022-08-01] MEDS: PIPERACILLIN-TAZOBACTAM 3.375 GM in SODIUM CHLORIDE 0.9% 100 ML IVPB SCH ×2 (08:27→15:37)
[2022-08-01] MEDS: FAMOTIDINE 20 MG TAB PO SCH (08:27)
[2022-08-01] MEDS: GABAPENTIN 300 MG CAP PO SCH ×3 (08:27→20:28)
[2022-08-01] MEDS: CITALOPRAM HYDROBROMIDE 20 MG TAB PO SCH (08:27)
[2022-08-01] MEDS: allopurinoL 300 MG TAB PO SCH (08:27)
[2022-08-01] MEDS: guaiFENesin 600 MG TABLET.ER PO SCH ×2 (08:27→20:27)
[2022-08-01] MEDS: FERROUS SULFATE 325 MG TAB PO SCH (08:27)
[2022-08-01] MEDS: FUROSEMIDE 10 MG/ML 4 ML VIAL IV SCH ×2 (08:27→20:27)
[2022-08-01] MEDS: METOPROLOL SUCCINATE (ER) 25 MG TAB.ER.24H PO SCH (08:27)
[2022-08-01] MEDS: ASPIRIN 81 MG PO SCH (08:27)
[2022-08-01] MEDS: DEXTROSE 5%-0.45% NACL 1,000 ML IV SCH (11:01)
--- NOTE | 2022-08-01 13:03 | P.PN ---
Subjective Progress Note Date: 08/01/22 Principal diagnosis: Acute hypoxic respiratory failure secondary to multilobar pneumonia, possibly hospital-acquired pneumonia. And underlying COPD exacerbation This is a pleasant 66-year-old male patient with advanced COPD. The patient is auction dependent and the patient has an FEV1 of 34% predicted consistent with severe COPD and the patient has had multiple hospitalization for COPD exacerbation. The patient was in the hospital on 07/11/2022 and at that time he was positive for cold and 19, treated without any major complications and he was discharged home. He came in today with worsening shortness of breath. The shortness of breath rapidly evolving the patient became quite dyspneic and he came into the hospital and the chest x-ray showed extensive consolidation of the left lung mainly in the left upper lobe and lingular segment and some in the left lower lobe. Based on that, the patient was immediately placed on a BiPAP at a pressure of 12/6 cm of water with FiO2 of 40%. His current respiratory rate is around 27. He is awake and alert. His generating a tidal volume of 750. CTA of the chest was also done in the emergency that showed no evidence of any pulmonary embolism. There was areas of spiculation in the right upper lobe measuring 15 mm suspicious for malignancy. At the same time, there was diffuse consolidation involving the left lung more so on the left upper lobe and to lesser extent in the left lower lobe. There is also some background emphysema as noted. The patient was already given a dose of Zosyn and dose of vancomycin. He was not on bronchodilators. He is started on steroids. He is still short of breath and is using his abdomen to breathe and is doing some abdominal breathing. He is known to have [id number] smoking history and he quit smoking in December 2021. Has rheumatoid arthritis. He has also cardiomyopathy, coronary artery disease, previous coronary stents, previous vascular intervention for peripheral vascular disease including stenting to his lower extremities and he has had previous orthopedic surgeries. He has also gout, chronic anemia, right hip avascular necrosis. He is oxygen dependent and he typically utilizes oxygen at 4 L/m nasal cannula on an outpatient basis. CAT scan of the chest also showed a small to moderate-sized hiatal hernia. 07/26/2022, the patient remains on a BiPAP. He was briefly taken off the BiPAP this morning through the small bites and immediately following that he was placed back on a BiPAP pressure of 12/5 cm both of his current FiO2 is at 40%. He seems to be slightly more comfortable compared to yesterday although he is still tachypneic even while being on a BiPAP. He is able to generate adequate tidal volumes while on the BiPAP. The chest x-ray showing some limited improvement in the extensive left upper lobe pulmonary infiltrate. I would say that his some interval improvement in the pneumonia. The patient was started on broad-spectrum antibiotics and he is on a combination of Zosyn and Levaquin. The white cell count is 11.0 with a hemoglobin of 7.2 which is about compared to yesterday. No evidence of any GI bleeding. Electrodes are within normal limits. Pro calcitonin level was elevated at 0.9 and the patient remains on a combination of bronchodilators and steroids. No other significant events. No altered mentation. No agitation. 07/26/2022, the patient is being seen for a follow-up. The patient's is feeling better. After spending the entire night on a BiPAP at a pressure clover 6 cm the fourth, the patient was placed on oxygen at 5 L nasal cannula. Doing well. Less shortness of breath. There are entry is improved bilaterally. Less bronchospastic and we compared to yesterday. Pneumonia in the left upper lobe was already improving. There was excellent at 6.7. Hemoglobin dropped down to 6.9 and there is no evidence of any acute bleeding. The patient will be given a unit of packed RBC. The rest of electrolytes are old stable for now, sodiums of 139, BUN is 26 and a creatinine of 0.7. As far as cultures, blood cultures were negative. The patient is being treated for possible hospital-acquired pneumonia and he is on a combination of Zosyn and vanco . No altered mentation. No signs of any CO2 narcosis. No encephalopathy at this point in time. He is also on vancomycin. Clinically improving. A repeat chest cystoscopy pending and this needs to be done on a daily basis. Reevaluated today on , patient remains in the ICU, he is marginal at best. Overnight the patient is on BiPAP with IPAP of 12 EPAP of 6, and he was on FiO2 of 35%. This morning he is on 4 L nasal cannula. A black seems to be comfortable, however he was more comfortable on BiPAP. He is on vancomycin and Zosyn empirically. Today's hemoglobin is 8.1. He is hemodynamically stable, not requiring any pressors. Chest x-ray continues to show significant infiltrates /patchy airspace disease within the left lung. Consistent with pneumonia. WBC count today is 6.8 hemoglobin is 8.1 electrodes are normal renal profile is normal. Patient received a unit of packed RBCs since admission for low hemoglobin of 6.9 yesterday Reevaluated today on 07/29/22, patient remains in the ICU, clinically slightly better today compared to yesterday. He has BiPAP at bedside use it yesterday only 2 hours. He is now on 3 L nasal cannula, and he is saturating in the low 90s. Patient remains on Zosyn and vancomycin, however since the cultures are nondiagnostic I will go ahead and keep him on Zosyn and discontinue vancomycin. Chest x-ray today continues to show significant infiltrate in the left lung, but improved compared to the previous chest x-ray. WBC count is 5.4 hemoglobin 8.4 electrodes are normal renal profile is normal Reevaluated today on 07/30/22, patient remains in the ICU, remains marginal at best, intermittently on BiPAP 12/6/35%, he is now on 3 days nasal cannula, O2 saturation is in the 90s. Patient is having intermittent episodes of nausea vomiting, shortness of breath and wheezing, he is receiving Xanax and Ativan, patient remains on Zosyn. His Pro calcitonin level was 5.6. Patient clearly h as significant infiltrate in the left lung, and he has underlying severe COPD. Started out as a left upper lobe infiltrate, and seems to have progressed. Chest x-ray seems to be slightly better compared to the last 2 days. Clinically however the patient does not seem to be making significant progress WBC count today is 6.3 hemoglobin 8.5 electrolytes are normal sodium is a bit elevated at 145, basic metabolic profile is normal renal profile is normal Reevaluated today on 07/31/22, patient remains in the ICU, he is now on Precedex at 0.8 mcg/kg/h, he is on BiPAP 35% 12/6. Seems to be more comfortable, tolerating BiPAP much better, chest x-ray continues to show left upper lobe infiltrate, however seems to be slightly better, and suspect some component of mild interstitial edema. Today the patient seems to be a bit better compared to yesterday, nonetheless he remains quite ill, and prognosis remains very guarded. WBC count is 4.4 hemoglobin is 8.3 electrolytes are normal except for slightly elevated sodium of 145, hence we'll change the main IV fluid to D5W and on it at a low rate. Patient remains on antibiotics, Zosyn, his also on steroids, and Lasix 40 mg IV push every 12 hours. Patient is on multiple bronchodilators. Reevaluated today on 08/01/22, patient remains in the ICU, intermittently on BiPAP, he is now on IPAP 09/16 last 35%, and when he is off BiPAP she goes on 3 L nasal cannula. Surprisingly the patient is doing much better today, chest x-ray is showing improvement, patient remains on Precedex at 0.5 mcg/kg/h. He is on IV fluid in the form of D5W which I have changed to D5 45 at 50 mL per hour, remains on Lasix every 12. Patient remains on Zosyn he is alert, he seems to be much more comfortable today, and in less respiratory distress. WBC count is 3.1 hemoglobin is 8.6 electrolytes are normal renal profile is normal Objective - Vital Signs Vital signs: Vital Signs Temp 98.2 F 08/01/22 12:00 Pulse 90 08/01/22 12:56 Resp 22 08/01/22 12:00 BP 152/70 08/01/22 12:00 Pulse Ox 96 08/01/22 12:00 FiO2 35 08/01/22 09:18 Intake & Output 07/31/22 08/01/22 08/01/22 18:59 06:59 18:59 Intake Total 1106.8 900.00 689.375 Output Total 1970 1860 770 Balance -863.2 -960.00 -80.625 Weight 69.2 kg Intake: IV 260 550 450 Dextrose 5% in Water 1, 550 50 000 ml @ 50 mls/hr IV . Q20H [facility] Rx#:[id number] Piperacillin-Tazobactam 3 200 100 .375 gm In Sodium Chloride 0.9% 100 ml @ 25 mls/hr IVPB Q8HR [facility] Rx# :[id number] Potassium Chloride 10 meq 300 In Water For Injection 1 100ml.bag @ 100 mls/hr IVPB Q1HR [facility] Rx#: [id number] Sodium Chloride 0.9% 1, 60 000 ml @ 20 mls/hr IV . Q24H [facility] Rx#:[id number] Intake, IV Titration 346.8 100.00 239.375 Amount Dexmedetomidine/0.9% NaCl 96.8 100.00 89.375 (Pmx) 400 mcg In Empty Bag 1 bag @ 0.2 MCG/KG/HR 3.3 mls/hr IV .Q24H [facility] Rx#:[id number] Dextrose 5% in Water 1, 250 000 ml @ 50 mls/hr IV . Q20H [facility] Rx#:[id number] Dextrose 5%-0.45% NaCl 1, 150 000 ml @ 50 mls/hr IV . Q20H [facility] Rx#:[id number] Oral 500 250 Output: Urine 1970 1860 770 Other: Voiding Method Indwelling Catheter Indwelling Catheter Indwelling Catheter # Bowel Movements 1 - Exam GENERAL EXAM: Revealed a 66-year-old white male on BiPAP, comfortable today, not in distress HEAD: Normocephalic. Atraumatic. EYES: Normal reaction of pupils, equal size. NOSE: Clear with pink turbinates. THROAT: No erythema or exudates. NECK: No masses, no JVD. CHEST: No chest wall deformity. LUNGS: Crackles bilaterally symmetrical chest expansion CVS: S1 and S2 normal with no audible murmur, regular rhythm. ABDOMEN: No hepatosplenomegaly, normal bowel sounds, no guarding or rigidity. SKIN: No rashes CENTRAL NERVOUS SYSTEM: Alert and oriented 3 no gross focal deficits EXTREMITIES: No clubbing edema or cyanosis. Psychiatric: Normal mood affect and normal mental status examination. - Labs CBC & Chem 7: 08/01/22 03:28 08/01/22 03:28 Labs: Abnormal Lab Results - Last 24 Hours (Table) 07/31/22 08/01/22 08/01/22 Range/Units 17:17 03:28 03:28 WBC 3.1 L (3.8-10.6) k/uL RBC 2.72 L (4.30-5.90) m/uL Hgb 8.6 L (13.0-17.5) gm/dL Hct 26.2 L (39.0-53.0) % RDW 15.6 H (11.5-15.5) % Plt Count 124 L (150-450) k/uL Lymphocytes # 0.1 L (1.0-4.8) k/uL Sodium 136 L (137-145) mmol/L Potassium 3.0 L (3.5-5.1) mmol/L BUN 31 H (9-20) mg/dL Glucose 191 H (74-99) mg/dL POC Glucose (mg/dL) 159 H (70-110) mg/dL Calcium 7.8 L (8.4-10.2) mg/dL Microbiology - Last 24 Hours (Table) 07/25/22 11:40 Blood Culture - Final Blood No Growth after 144 hours 07/25/22 11:37 Blood Culture - Final Blood No Growth after 144 hours Assessment and Plan Assessment: Impression: Acute on chronic hypoxic respiratory failure secondary to extensive left-sided pneumonia possibly hospital-acquired pneumonia. And secondary to acute exacerbation of COPD Severe underlying COPD Acute kidney injury secondary to above Acute exacerbation of COPD Chronic hypoxic respiratory failure, patient is normally on oxygen for his underlying COPD, FEV1 of 34% History of current 19 infection Underlying coronary arteriosclerosis and previous stent placement Peripheral vessel occlusive disease [id number] smoking history quit in December of 2021 Benign essential hypertension Dyslipidemia History of rheumatoid arthritis History of multiple orthopedic surgeries History of severe cardiomyopathy/ischemic in nature ejection fraction 35%. Recommendation: Continue BiPAP 09/16 /35% Continue Zosyn. Continue Lasix 40 mg twice a day. Continue bronchodilators Continue IV Solu-Medrol Continue subcu heparin for DVT prophylaxis Continue GI prophylaxis/Protonix Continue Precedex Continue to monitor in ICU Overall prognosis remains relatively guarded. Time with Patient: Less than 30
[2022-08-01] MEDS: ALPRAZolam 0.5 MG TAB PO PRN (18:53)
[2022-08-01] MEDS: ATORVASTATIN 80 MG TAB PO SCH (20:27)
[2022-08-01] MEDS: DONEPEZIL 5 MG TAB PO SCH (20:28)
[2022-08-01] MEDS: hydrOXYzine HCL 25 MG TAB PO SCH (20:28)
[2022-08-01 22:07] LABS: Glucose,Whole Blood 219 mg/dL (70-110)
[2022-08-01] MEDS: LORazepam 1 MG/0.5 ML VIAL IV PRN (22:15)
--- NOTE | 2022-08-01 23:11 | P.PN ---
Subjective Progress Note Date: 08/01/22 This is a 66-year-old gentleman admitted with acute COPD exacerbation, multilobar pneumonia, severe COPD, history of recent covid, multiple frequent admissions regarding his acute hypoxic respiratory failure/COPD. Yesterday required a unit of packed RBCs for hemoglobin of 6.9, hemoglobin currently 8.1 Overnight patient became BiPAP dependent and is currently on BiPAP this morning. Chest CTA had reported to 15.5 mm spiculated mass right upper lobe highly suspicious for malignancy with 3 large scattered diffuse areas to partially consolidative and interstitial opacity in the left upper and lower lobes consistent with pneumonia, a few scattered tiny sclerotic densities in the thoracic spine, possible metastasis, large hiatal hernia, with no mediastinal hilar or axillary adenopathy. Chest x-ray reporting similar patchy airspace disease within the left lung, correlate for pneumonia, COPD changes. Continues on empiric antibiotics of Zosyn and vancomycin. Renal function stable. Afebrile, normal WBC. Blood cultures reporting no growth to date. Potassium 3.4, receiving supplementation per ICU protocol. 07/29/22 Maintained on Bipap,, O2 sats in the 90s. Code status changed to No code as per patient's request. Chest x-ray reporting similar patchy and interstitial infiltrates on the left, improving aeration on the right with similar appearances pseudosubluxation or superior subluxation of the left glenoid humeral joint. Maintained on vancomycin and Zosyn. Afebrile, normal WBC. Preliminary Blood cultures reporting no growth. 07/30/22 patient is currently off BiPAP his O2 sats remained low. He still has similar chest x-ray appearance as of yesterday continue IV vancomycin and Zosyn continue maximum pulmonary support. Patient denies any fever. He does admit to some nausea this morning which she is on IV Reglan for. 07/31/22 Patient seen today back on Ventimask rebreather still desaturating with difficulty breathing and poor air exchange. The patient remains afebrile. Patient still has diminished appetite. He denies any pain. 08/01/22 patient seen today he is off vent Ventimask rebreather. He is upright in bed and he is feeling much improvement today. His shortness of breath and wheezing has improved. He denies any fever he denies any pain. He remains in the ICU for now and will continue to monitor. Objective - Vital Signs Vital signs: Vital Signs Temp 98.0 F 08/01/22 20:00 Pulse 93 08/01/22 21:00 Resp 21 08/01/22 21:00 BP 159/69 08/01/22 21:00 Pulse Ox 96 08/01/22 21:00 FiO2 35 08/01/22 21:00 Intake & Output 08/01/22 08/01/22 08/02/22 06:59 18:59 06:59 Intake Total 900.00 1759.375 100 Output Total 1860 1420 250 Balance -960.00 339.375 -150 Weight 69.2 kg Intake: IV 550 450 Dextrose 5% in Water 1, 550 50 000 ml @ 50 mls/hr IV . Q20H [facility] Rx#:[id number] Piperacillin-Tazobactam 3 100 .375 gm In Sodium Chloride 0.9% 100 ml @ 25 mls/hr IVPB Q8HR [facility] Rx# :[id number] Potassium Chloride 10 meq 300 In Water For Injection 1 100ml.bag @ 100 mls/hr IVPB Q1HR [facility] Rx#: [id number] Intake, IV Titration 100.00 589.375 100 Amount Dexmedetomidine/0.9% NaCl 100.00 89.375 (Pmx) 400 mcg In Empty Bag 1 bag @ 0.2 MCG/KG/HR 3.3 mls/hr IV .Q24H [facility] Rx#:[id number] Dextrose 5%-0.45% NaCl 1, 500 100 000 ml @ 50 mls/hr IV . Q20H [facility] Rx#:[id number] Oral 250 720 Output: Urine 1860 1420 250 Other: Voiding Method Indwelling Catheter Indwelling Catheter Indwelling Catheter # Bowel Movements 1 1 - Exam GENERAL: Alert and oriented 3 ,SItting up in bed, fatiqued, wearing Bipap HEENT: Normocephalic. Pupils reactive. Neck: supple, CHEST EXAMINATION: Trachea is central. Symmetrical expansion. Scattered coarse rhonchi with crackles. CARDIAC: Normal S1, S2 with no gallops. No murmurs. ABDOMEN: Soft. Nontender, Bowel sounds normal. No organomegaly. No guarding. Extremities: reveal no edema. No clubbing or cyanosis evidence of Neurological: Cranial nerves 2 through 12 grossly intact. No focal deficits note d Skin: Warm and dry, No rash. - Labs CBC & Chem 7: 08/01/22 03:28 08/01/22 14:51 Labs: Abnormal Lab Results - Last 24 Hours (Table) 08/01/22 08/01/22 08/01/22 Range/Units 03:28 03:28 22:05 WBC 3.1 L (3.8-10.6) k/uL RBC 2.72 L (4.30-5.90) m/uL Hgb 8.6 L (13.0-17.5) gm/dL Hct 26.2 L (39.0-53.0) % RDW 15.6 H (11.5-15.5) % Plt Count 124 L (150-450) k/uL Lymphocytes # 0.1 L (1.0-4.8) k/uL Sodium 136 L (137-145) mmol/L Potassium 3.0 L (3.5-5.1) mmol/L BUN 31 H (9-20) mg/dL Glucose 191 H (74-99) mg/dL POC Glucose (mg/dL) 219 H (70-110) mg/dL Calcium 7.8 L (8.4-10.2) mg/dL Assessment and Plan (1) Acute kidney injury Current Visit: Yes Status: Acute Code(s): N17.9 - ACUTE KIDNEY FAILURE, UNSPECIFIED SNOMED Code(s): 66515914 (2) Acute respiratory failure Current Visit: Yes Status: Acute Code(s): J96.00 - ACUTE RESPIRATORY FAILURE, UNSP W HYPOXIA OR HYPERCAPNIA SNOMED Code(s): 94454194 (3) COPD exacerbation Current Visit: Yes Status: Acute Code(s): J44.1 - CHRONIC OBSTRUCTIVE PULMONARY DISEASE W (ACUTE) EXACERBATION SNOMED Code(s): 311842474 (4) Chronic anemia Current Visit: Yes Status: Acute Code(s): D64.9 - ANEMIA, UNSPECIFIED SNOMED Code(s): 031769473 (5) Pneumonia Current Visit: Yes Status: Acute Code(s): J18.9 - PNEUMONIA, UNSPECIFIED ORGANISM SNOMED Code(s): 627474423 Plan: Continue on current medication regime ,monitoring and symptomatic treatment. Aggressive pulmonary toileting with Empiric antibiotics-vancomycin discontinued, BiPAP , nebulized bronchodilators, IV steroids. 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 Prognosis guarded given multiple complex medical issues. By early afternoon patient has been weaned to 3 L nasal cannula maintaining O2 sats in the high 90s.
[2022-08-02] MEDS: DEXTROSE 5%-0.45% NACL 1,000 ML IV SCH (05:31)
[2022-08-02] MEDS: methylPREDNISolone SOD SUCCI 125 MG/2 ML VIAL IV SCH ×2 (05:32→11:43)
[2022-08-02 06:12] LABS: Basophils % (A) 0 %; Eosinophils % (A) 0 %; HCT 27.9 % (39.0-53.0); HGB 9.4 gm/dL (13.0-17.5); Hypochromasia Slight; Lymphocytes # (A) 0.2 k/uL (1.0-4.8); Lymphocytes % (A) 5 %; MCH 32.5 pg (25.0-35.0); MCHC 33.7 g/dL (31.0-37.0); MCV 96.4 fL (80.0-100.0); Mean Platelet Volume 8.4; Monocytes # (A) 0.2 k/uL (0-1.0); Monocytes % (A) 6 %; Neutrophils # (A) 3.2 k/uL (1.3-7.7); Neutrophils % (A) 88 %; Platelet Count 142 k/uL (150-450); RBC 2.89 m/uL (4.30-5.90); RDW 15.4 % (11.5-15.5); WBC 3.6 k/uL (3.8-10.6)
[2022-08-02 06:32] LABS: African American GFR (CKD) >90 (>60 ml/min/1.73 sqM); Anion Gap 6 mmol/L; Blood Urea Nitrogen 33 mg/dL (9-20); Calcium 7.2 mg/dL (8.4-10.2); Carbon Dioxide 33 mmol/L (22-30); Chloride 99 mmol/L (98-107); Glucose 176 mg/dL (74-99); Non-African American GFR(CKD) >90 (>60 ml/min/1.73 sqM); Potassium 3.2 mmol/L (3.5-5.1); Sodium 138 mmol/L (137-145)
[2022-08-02] MEDS: BUDESONIDE 0.5 MG/2 ML NEBU INHALATION SCH ×2 (07:58→19:44)
[2022-08-02] MEDS: FORMOTEROL FUMARATE 20 MCG/2 ML NEBU INHALATION SCH ×2 (07:58→19:44)
[2022-08-02] MEDS: IPRATROPIUM-ALBUTEROL 3 ML NEB INHALATION PRN ×4 (07:58→19:44)
--- NOTE | 2022-08-02 08:32 | XR ---
EXAMINATION TYPE: XR chest 1V portable DATE OF EXAM: 08/02/2022 CLINICAL HISTORY: Difficulty breathing and pneumonia progress study. TECHNIQUE: Single AP portable semiupright view of the chest is obtained. COMPARISON: Chest x-ray from one day earlier and older studies. FINDINGS: Background chronic emphysematous change with elevated left hemidiaphragm is redemonstrated . Continued improving left suprahilar airspace opacity noted. Right lung remains clear. Cardiac silho uette size is stable and within normal limits. Osseous structures are demineralized. IMPRESSION: Elevated left hemidiaphragm with left basilar opacity favoring atelectasis redemonstrated . Continued resolving left suprahilar acute infiltrate. No new infiltrates seen.
[2022-08-02] MEDS: METOCLOPRAMIDE 5 MG/ML 2 ML VIAL IVP PRN ×2 (08:37→16:23)
[2022-08-02] MEDS: CITALOPRAM HYDROBROMIDE 20 MG TAB PO SCH (08:37)
[2022-08-02] MEDS: FAMOTIDINE 20 MG TAB PO SCH (08:37)
[2022-08-02] MEDS: allopurinoL 300 MG TAB PO SCH (08:37)
[2022-08-02] MEDS: FUROSEMIDE 10 MG/ML 4 ML VIAL IV SCH (08:37)
[2022-08-02] MEDS: ALPRAZolam 0.5 MG TAB PO PRN ×2 (08:37→16:53)
[2022-08-02] MEDS: METOPROLOL SUCCINATE (ER) 25 MG TAB.ER.24H PO SCH (08:37)
[2022-08-02] MEDS: ENOXAPARIN 40 MG/0.4 ML SYRINGE SQ SCH (08:37)
[2022-08-02] MEDS: GABAPENTIN 300 MG CAP PO SCH ×3 (08:37→20:20)
[2022-08-02] MEDS: guaiFENesin 600 MG TABLET.ER PO SCH ×2 (08:38→20:19)
[2022-08-02] MEDS: ASPIRIN 81 MG PO SCH (08:38)
[2022-08-02] MEDS: FERROUS SULFATE 325 MG TAB PO SCH (08:39)
[2022-08-02] MEDS: LORazepam 1 MG/0.5 ML VIAL IV PRN ×2 (09:45→20:21)
--- NOTE | 2022-08-02 11:44 | P.PN ---
Subjective Progress Note Date: 08/02/22 Principal diagnosis: Acute hypoxic respiratory failure secondary to multilobar pneumonia, possibly hospital-acquired pneumonia. And underlying COPD exacerbation This is a pleasant 66-year-old male patient with advanced COPD. The patient is auction dependent and the patient has an FEV1 of 34% predicted consistent with severe COPD and the patient has had multiple hospitalization for COPD exacerbation. The patient was in the hospital on 07/11/2022 and at that time he was positive for cold and 19, treated without any major complications and he was discharged home. He came in today with worsening shortness of breath. The shortness of breath rapidly evolving the patient became quite dyspneic and he came into the hospital and the chest x-ray showed extensive consolidation of the left lung mainly in the left upper lobe and lingular segment and some in the left lower lobe. Based on that, the patient was immediately placed on a BiPAP at a pressure of 12/6 cm of water with FiO2 of 40%. His current respiratory rate is around 27. He is awake and alert. His generating a tidal volume of 750. CTA of the chest was also done in the emergency that showed no evidence of any pulmonary embolism. There was areas of spiculation in the right upper lobe measuring 15 mm suspicious for malignancy. At the same time, there was diffuse consolidation involving the left lung more so on the left upper lobe and to lesser extent in the left lower lobe. There is also some background emphysema as noted. The patient was already given a dose of Zosyn and dose of vancomycin. He was not on bronchodilators. He is started on steroids. He is still short of breath and is using his abdomen to breathe and is doing some abdominal breathing. He is known to have [id number]-teaw smoking history and he quit smoking in December 2021. Has rheumatoid arthritis. He has also cardiomyopathy, coronary artery disease, previous coronary stents, previous vascular intervention for peripheral vascular disease including stenting to his lower extremities and he has had previous orthopedic surgeries. He has also gout, chronic anemia, right hip avascular necrosis. He is oxygen dependent and he typically utilizes oxygen at 4 L/m nasal cannula on an outpatient basis. CAT scan of the chest also showed a small to moderate-sized hiatal hernia. 07/26/2022, the patient remains on a BiPAP. He was briefly taken off the BiPAP this morning through the small bites and immediately following that he was placed back on a BiPAP pressure of 12/5 cm both of his current FiO2 is at 40%. He seems to be slightly more comfortable compared to yesterday although he is still tachypneic even while being on a BiPAP. He is able to generate adequate tidal volumes while on the BiPAP. The chest x-ray showing some limited improvement in the extensive left upper lobe pulmonary infiltrate. I would say that his some interval improvement in the pneumonia. The patient was started on broad-spectrum antibiotics and he is on a combination of Zosyn and Levaquin. The white cell count is 11.0 with a hemoglobin of 7.2 which is about compared to yesterday. No evidence of any GI bleeding. Electrodes are within normal limits. Pro calcitonin level was elevated at 0.9 and the patient remains on a combination of bronchodilators and steroids. No other significant events. No altered mentation. No agitation. 07/26/2022, the patient is being seen for a follow-up. The patient's is feeling better. After spending the entire night on a BiPAP at a pressure clover 6 cm the fourth, the patient was placed on oxygen at 5 L nasal cannula. Doing well. Less shortness of breath. There are entry is improved bilaterally. Less bronchospastic and we compared to yesterday. Pneumonia in the left upper lobe was already improving. There was excellent at 6.7. Hemoglobin dropped down to 6.9 and there is no evidence of any acute bleeding. The patient will be given a unit of packed RBC. The rest of electrolytes are old stable for now, sodiums of 139, BUN is 26 and a creatinine of 0.7. As far as cultures, blood cultures were negative. The patient is being treated for possible hospital-acquired pneumonia and he is on a combination of Zosyn and vanco . No altered mentation. No signs of any CO2 narcosis. No encephalopathy at this point in time. He is also on vancomycin. Clinically improving. A repeat chest cystoscopy pending and this needs to be done on a daily basis. Reevaluated today on , patient remains in the ICU, he is marginal at best. Overnight the patient is on BiPAP with IPAP of 12 EPAP of 6, and he was on FiO2 of 35%. This morning he is on 4 L nasal cannula. A black seems to be comfortable, however he was more comfortable on BiPAP. He is on vancomycin and Zosyn empirically. Today's hemoglobin is 8.1. He is hemodynamically stable, not requiring any pressors. Chest x-ray continues to show significant infiltrates /patchy airspace disease within the left lung. Consistent with pneumonia. WBC count today is 6.8 hemoglobin is 8.1 electrodes are normal renal profile is normal. Patient received a unit of packed RBCs since admission for low hemoglobin of 6.9 yesterday Reevaluated today on 07/29/22, patient remains in the ICU, clinically slightly better today compared to yesterday. He has BiPAP at bedside use it yesterday only 2 hours. He is now on 3 L nasal cannula, and he is saturating in the low 90s. Patient remains on Zosyn and vancomycin, however since the cultures are nondiagnostic I will go ahead and keep him on Zosyn and discontinue vancomycin. Chest x-ray today continues to show significant infiltrate in the left lung, but improved compared to the previous chest x-ray. WBC count is 5.4 hemoglobin 8.4 electrodes are normal renal profile is normal Reevaluated today on 07/30/22, patient remains in the ICU, remains marginal at best, intermittently on BiPAP 12/6/35%, he is now on 3 days nasal cannula, O2 saturation is in the 90s. Patient is having intermittent episodes of nausea vomiting, shortness of breath and wheezing, he is receiving Xanax and Ativan, patient remains on Zosyn. His Pro calcitonin level was 5.6. Patient clearly h as significant infiltrate in the left lung, and he has underlying severe COPD. Started out as a left upper lobe infiltrate, and seems to have progressed. Chest x-ray seems to be slightly better compared to the last 2 days. Clinically however the patient does not seem to be making significant progress WBC count today is 6.3 hemoglobin 8.5 electrolytes are normal sodium is a bit elevated at 145, basic metabolic profile is normal renal profile is normal Reevaluated today on 07/31/22, patient remains in the ICU, he is now on Precedex at 0.8 mcg/kg/h, he is on BiPAP 35% 12/6. Seems to be more comfortable, tolerating BiPAP much better, chest x-ray continues to show left upper lobe infiltrate, however seems to be slightly better, and suspect some component of mild interstitial edema. Today the patient seems to be a bit better compared to yesterday, nonetheless he remains quite ill, and prognosis remains very guarded. WBC count is 4.4 hemoglobin is 8.3 electrolytes are normal except for slightly elevated sodium of 145, hence we'll change the main IV fluid to D5W and on it at a low rate. Patient remains on antibiotics, Zosyn, his also on steroids, and Lasix 40 mg IV push every 12 hours. Patient is on multiple bronchodilators. Reevaluated today on 08/01/22, patient remains in the ICU, intermittently on BiPAP, he is now on IPAP 09/16 last 35%, and when he is off BiPAP she goes on 3 L nasal cannula. Surprisingly the patient is doing much better today, chest x-ray is showing improvement, patient remains on Precedex at 0.5 mcg/kg/h. He is on IV fluid in the form of D5W which I have changed to D5 45 at 50 mL per hour, remains on Lasix every 12. Patient remains on Zosyn he is alert, he seems to be much more comfortable today, and in less respiratory distress. WBC count is 3.1 hemoglobin is 8.6 electrolytes are normal renal profile is normal Reevaluated today on 08/02/22, patient remains in the ICU, he is now on 3 L nasal cannula, BiPAP is at bedside, patient seems to be doing great clinically, his chest x-ray is showing significant improvement in his left upper lobe infiltrate and improvement in his interstitial edema. Patient seems definitely more comfortable today than he has felt over the last few days. WBC count today is 2.6 with Jesu is 9.4 electrolytes are normal except for low potassium being addressed accordingly, renal profile is normal. Patient remains on multiple medications including Pulmicort updrafts, Perforomist updrafts, DuoNeb updrafts, patient is off Precedex, and today I plan to transfer the patient out of the ICU to regular medical floor. Patient remains on Lasix at 40 mg IV push with all hours, we will transition that to oral Lasix. And will taper down the dose of methylprednisolone today. Again I plan to transfer the patient out of the ICU today to a regular medical floor Objective - Vital Signs Vital signs: Vital Signs Temp 98.2 F 08/02/22 08:00 Pulse 99 08/02/22 11:27 Resp 21 08/02/22 08:00 BP 154/68 08/02/22 08:00 Pulse Ox 98 08/02/22 08:00 FiO2 35 08/02/22 08:01 Intake & Output 08/01/22 08/02/22 08/02/22 18:59 06:59 18:59 Intake Total 1759.375 600 Output Total 1420 1425 350 Balance 339.375 -825 -350 Weight 72.1 kg Intake: IV 450 Dextrose 5% in Water 1, 50 000 ml @ 50 mls/hr IV . Q20H [facility] Rx#:[id number] Piperacillin-Tazobactam 3 100 .375 gm In Sodium Chloride 0.9% 100 ml @ 25 mls/hr IVPB Q8HR [facility] Rx# :[id number] Potassium Chloride 10 meq 300 In Water For Injection 1 100ml.bag @ 100 mls/hr IVPB Q1HR [facility] Rx#: [id number] Intake, IV Titration 589.375 600 Amount Dexmedetomidine/0.9% NaCl 89.375 (Pmx) 400 mcg In Empty Bag 1 bag @ 0.2 MCG/KG/HR 3.3 mls/hr IV .Q24H [facility] Rx#:[id number] Dextrose 5%-0.45% NaCl 1, 500 600 000 ml @ 50 mls/hr IV . Q20H [facility] Rx#:[id number] Oral 720 Output: Urine 1420 1425 350 Other: Voiding Method Indwelling Catheter Indwelling Catheter # Bowel Movements 1 1 - Exam GENERAL EXAM: Revealed a 66-year-old white male on BiPAP, comfortable today, not in distress, on 3 L nasal HEAD: Normocephalic. Atraumatic. EYES: Normal reaction of pupils, equal size. NOSE: Clear with pink turbinates. THROAT: No erythema or exudates. NECK: No masses, no JVD. CHEST: No chest wall deformity. LUNGS: Minimal basilar crackles noted. No rhonchi no wheezes Cardiac: regular rhythm. Normal S1 and S2, no S3 gallop. ABDOMEN: Soft nontender no megaly no rebound no guarding SKIN: No rashes CENTRAL NERVOUS SYSTEM: Alert and oriented 3 no gross focal deficits EXTREMITIES: No clubbing edema or cyanosis. Psychiatric: Normal mood affect and normal mental status examination. - Labs CBC & Chem 7: 08/02/22 05:55 08/02/22 05:55 Labs: Abnormal Lab Results - Last 24 Hours (Table) 08/01/22 08/02/22 08/02/22 Range/Units 22:05 05:55 05:55 WBC 3.6 L (3.8-10.6) k/uL RBC 2.89 L (4.30-5.90) m/uL Hgb 9.4 L (13.0-17.5) gm/dL Hct 27.9 L (39.0-53.0) % Plt Count 142 L (150-450) k/uL Lymphocytes # 0.2 L (1.0-4.8) k/uL Potassium 3.2 L (3.5-5.1) mmol/L Carbon Dioxide 33 H (22-30) mmol/L BUN 33 H (9-20) mg/dL Glucose 176 H (74-99) mg/dL POC Glucose (mg/dL) 219 H (70-110) mg/dL Calcium 7.2 L (8.4-10.2) mg/dL Assessment and Plan Assessment: Impression: Acute on chronic hypoxic respiratory failure secondary to extensive left-sided pneumonia possibly hospital-acquired pneumonia. And secondary to acute exacerbation of COPD Severe underlying COPD Acute kidney injury secondary to above Acute exacerbation of COPD Chronic hypoxic respiratory failure, patient is normally on oxygen for his underlying COPD, FEV1 of 34% History of current 19 infection Underlying coronary arteriosclerosis and previous stent placement Peripheral vessel occlusive disease [id number] smoking history quit in December of 2021 Benign essential hypertension Dyslipidemia History of rheumatoid arthritis History of multiple orthopedic surgeries History of severe cardiomyopathy/ischemic in nature ejection fraction 35%. Recommendation: Transfer patient out of the ICU to regular medical floor today. Continue Zosyn. Oral Lasix 40 mg by mouth twice a day Continue bronchodilators Decrease Solu-Medrol to 40 mg IV push every 8 hours and plan to transition to prednisone in the next 24 hours Continue subcu heparin for DVT prophylaxis Continue GI prophylaxis/Protonix Discontinue Prevacid Chest x-ray showed significant improvement today Overall prognosis remains relatively guarded. Time with Patient: Less than 30
[2022-08-02] MEDS ORDERED: Potassium Replacement Protocol 1 EACH MISC MISCELLANE PRN (12:01)
--- NOTE | 2022-08-02 12:10 | P.PN ---
Subjective Progress Note Date: 08/02/22 This is a 66-year-old gentleman admitted with acute COPD exacerbation, multilobar pneumonia, severe COPD, history of recent covid, multiple frequent admissions regarding his acute hypoxic respiratory failure/COPD. Yesterday required a unit of packed RBCs for hemoglobin of 6.9, hemoglobin currently 8.1 O vernight patient became BiPAP dependent and is currently on BiPAP this morning. Chest CTA had reported to 15.5 mm spiculated mass right upper lobe highly suspicious for malignancy with 3 large scattered diffuse areas to partially consolidative and interstitial opacity in the left upper and lower lobes consistent with pneumonia, a few scattered tiny sclerotic densities in the thoracic spine, possible metastasis, large hiatal hernia, with no mediastinal hilar or axillary adenopathy. Chest x-ray reporting similar patchy airspace disease within the left lung, correlate for pneumonia, COPD changes. Continues on empiric antibiotics of Zosyn and vancomycin. Renal function stable. Afebrile, normal WBC. Blood cultures reporting no growth to date. Potassium 3.4, receiving supplementation per ICU protocol. 07/29/22 Maintained on Bipap,, O2 sats in the 90s. Code status changed to No code as per patient's request. Chest x-ray reporting similar patchy and interstitial infiltrates on the left, improving aeration on the right with similar appearances pseudosubluxation or superior subluxation of the left glenoid humeral joint. Maintained on vancomycin and Zosyn. Afebrile, normal WBC. Preliminary Blood cultures reporting no growth. 07/30/22 patient is currently off BiPAP his O2 sats remained low. He still has similar chest x-ray appearance as of yesterday continue IV vancomycin and Zosyn continue maximum pulmonary support. Patient denies any fever. He does admit to some nausea this morning which she is on IV Reglan for. 07/31/22 Patient seen today back on Ventimask rebreather still desaturating with difficulty breathing and poor air exchange. The patient remains afebrile. Patient still has diminished appetite. He denies any pain. 08/01/22 patient seen today he is off vent Ventimask rebreather. He is upright in bed and he is feeling much improvement today. His shortness of breath and wheezing has improved. He denies any fever he denies any pain. He remains in t ICU for now and will continue to monitor. 08/02/2022 Patient is seen today in the ICU with pulmonary following. Patient is using bipap at night and now down to 3L via NC. Wean as tolerated. Patient potassium is slightly low at 3.1 and will replace per protocol. Encourage oral intake. Encouraged increased activity as tolerated. Afebrile and denies chest pain or worsening shortness of breath. Continue duonebs. Chest xray shows continued resolving left infiltrate with left basilar opacity. Atelectasis. Recommend incentive spirometer. PHysical exam: GENERAL: Alert and oriented 3 ,SItting up in bed, on 3L HEENT: Normocephalic. Pupils reactive. Neck: supple, CHEST EXAMINATION: diminished breath sounds bilaterally with Scattered coarse rhonchi with crackles. CARDIAC: S1, S2 muffled ABDOMEN: Soft. Nontender, Bowel sounds normal. No organomegaly. No guarding. Extremities: reveal no edema. No clubbing or cyanosis Neurological: Cranial nerves 2 through 12 grossly intact. No focal deficits noted Skin: Warm and dry, No rash. Assessment: Acute kidney injury, improving Acute on chronic hypoxic respiratory failure secondary to left side pneumonia and COPD exacerbation hypokalemia Acute respiratory failure COPD exacerbation Chronic anemia Pneumonia, possible hospital acquired GI and DVT prophylaxis Full code Plan: Continue on current medication regime ,monitoring and symptomatic treatment. Aggressive pulmonary toileting with Empiric antibiotics-vancomycin discontinued, BiPAP at night and wean FI02 as tolerated. Currently on 3L via NC. Continue with nebulized bronchodilators, IV steroids. ICU management with pulmonary following. Prognosis guarded given multiple complex medical issues. Further recommendations to follow based on the clinical course of the patient. The impression and plan of care has been dictated as a scribe by Sandra Jones, nurse practitioner as directed. Dr. Adnrew MD I have performed a history and examination and MDM of this patient, discussed the same with the dictator, and has been documented as a scribe. Based on total visit time, I have performed more than 50% of the visit. Any additional findings or plans will be noted. Objective - Vital Signs Vital signs: Vital Signs Temp 97.8 F 08/02/22 04:00 Pulse 73 08/02/22 06:00 Resp 26 H 08/02/22 06:00 BP 153/77 08/02/22 06:00 Pulse Ox 97 08/02/22 06:00 FiO2 35 08/02/22 06:00 Intake & Output 08/01/22 08/02/22 08/02/22 18:59 06:59 18:59 Intake Total 1759.375 600 Output Total 1420 1425 Balance 339.375 -825 Weight 72.1 kg Intake: IV 450 Dextrose 5% in Water 1, 50 000 ml @ 50 mls/hr IV . Q20H [facility] Rx#:[id number] Piperacillin-Tazobactam 3 100 .375 gm In Sodium Chloride 0.9% 100 ml @ 25 mls/hr IVPB Q8HR [facility] Rx# :[id number] Potassium Chloride 10 meq 300 In Water For Injection 1 100ml.bag @ 100 mls/hr IVPB Q1HR [facility] Rx#: [id number] Intake, IV Titration 589.375 600 Amount Dexmedetomidine/0.9% NaCl 89.375 (Pmx) 400 mcg In Empty Bag 1 bag @ 0.2 MCG/KG/HR 3.3 mls/hr IV .Q24H [facility] Rx#:[id number] Dextrose 5%-0.45% NaCl 1, 500 600 000 ml @ 50 mls/hr IV . Q20H [facility] Rx#:[id number] Oral 720 Output: Urine 1420 1425 Other: Voiding Method Indwelling Catheter Indwelling Catheter # Bowel Movements 1 1 - Labs CBC & Chem 7: 08/02/22 05:55 08/02/22 05:55 Labs: Abnormal Lab Results - Last 24 Hours (Table) 08/01/22 08/02/22 08/02/22 Range/Units 22:05 05:55 05:55 WBC 3.6 L (3.8-10.6) k/uL RBC 2.89 L (4.30-5.90) m/uL Hgb 9.4 L (13.0-17.5) gm/dL Hct 27.9 L (39.0-53.0) % Plt Count 142 L (150-450) k/uL Lymphocytes # 0.2 L (1.0-4.8) k/uL Potassium 3.2 L (3.5-5.1) mmol/L Carbon Dioxide 33 H (22-30) mmol/L BUN 33 H (9-20) mg/dL Glucose 176 H (74-99) mg/dL POC Glucose (mg/dL) 219 H (70-110) mg/dL Calcium 7.2 L (8.4-10.2) mg/dL
[2022-08-02] MEDS: POTASSIUM CHLORIDE ER 20 MEQ TAB.ER PO SCH ×2 (14:00→16:23)
[2022-08-02] MEDS: FUROSEMIDE 40 MG TAB PO SCH (16:23)
[2022-08-02] MEDS: methylPREDNISolone SOD SUCCI 40 MG/ML 1 ML VIAL IV SCH (16:23)
[2022-08-02 16:44] LABS: Glucose,Whole Blood 236 mg/dL (70-110)
[2022-08-02] MEDS: ATORVASTATIN 80 MG TAB PO SCH (20:19)
[2022-08-02] MEDS: hydrOXYzine HCL 25 MG TAB PO SCH (20:20)
[2022-08-02] MEDS: DONEPEZIL 5 MG TAB PO SCH (20:20)
[2022-08-03] MEDS: methylPREDNISolone SOD SUCCI 40 MG/ML 1 ML VIAL IV SCH ×2 (01:56→07:51)
[2022-08-03] MEDS: IPRATROPIUM-ALBUTEROL 3 ML NEB INHALATION PRN ×4 (07:13→19:28)
[2022-08-03] MEDS: BUDESONIDE 0.5 MG/2 ML NEBU INHALATION SCH ×2 (07:13→19:28)
[2022-08-03] MEDS: FORMOTEROL FUMARATE 20 MCG/2 ML NEBU INHALATION SCH ×2 (07:13→19:28)
[2022-08-03] MEDS: ALPRAZolam 0.5 MG TAB PO PRN ×2 (07:51→15:13)
[2022-08-03] MEDS: FAMOTIDINE 20 MG TAB PO SCH (07:51)
[2022-08-03] MEDS: METOPROLOL SUCCINATE (ER) 25 MG TAB.ER.24H PO SCH (07:51)
[2022-08-03] MEDS: FUROSEMIDE 40 MG TAB PO SCH ×2 (07:51→15:13)
[2022-08-03] MEDS: allopurinoL 300 MG TAB PO SCH (07:51)
[2022-08-03] MEDS: FERROUS SULFATE 325 MG TAB PO SCH (07:52)
[2022-08-03] MEDS: CITALOPRAM HYDROBROMIDE 20 MG TAB PO SCH (07:52)
[2022-08-03] MEDS: guaiFENesin 600 MG TABLET.ER PO SCH ×2 (07:52→20:22)
[2022-08-03] MEDS: GABAPENTIN 300 MG CAP PO SCH ×3 (07:52→20:22)
[2022-08-03] MEDS: ASPIRIN 81 MG PO SCH (07:52)
[2022-08-03] MEDS: ENOXAPARIN 40 MG/0.4 ML SYRINGE SQ SCH (07:52)
[2022-08-03 11:08] LABS: HCT 30.6 % (39.0-53.0); HGB 9.8 gm/dL (13.0-17.5); Hypochromasia Moderate; MCH 31.8 pg (25.0-35.0); MCV 99.4 fL (80.0-100.0); Macrocytosis Slight; Mean Platelet Volume 8.4; Platelet Count 141 k/uL (150-450); RBC 3.08 m/uL (4.30-5.90); RDW 15.5 % (11.5-15.5); WBC 6.3 k/uL (3.8-10.6)
[2022-08-03 11:24] LABS: African American GFR (CKD) >90 (>60 ml/min/1.73 sqM); Anion Gap 8 mmol/L; Blood Urea Nitrogen 37 mg/dL (9-20); Carbon Dioxide 32 mmol/L (22-30); Chloride 102 mmol/L (98-107); Glucose 220 mg/dL (74-99); Non-African American GFR(CKD) >90 (>60 ml/min/1.73 sqM); Potassium 3.7 mmol/L (3.5-5.1); Sodium 142 mmol/L (137-145)
--- NOTE | 2022-08-03 13:00 | P.PN ---
Subjective Progress Note Date: 08/03/22 Principal diagnosis: Acute hypoxic respiratory failure secondary to multilobar pneumonia, possibly hospital-acquired pneumonia. And underlying COPD exacerbation This is a pleasant 66-year-old male patient with advanced COPD. The patient is auction dependent and the patient has an FEV1 of 34% predicted consistent with severe COPD and the patient has had multiple hospitalization for COPD exacerbation. The patient was in the hospital on 07/11/2022 and at that time he was positive for cold and 19, treated without any major complications and he was discharged home. He came in today with worsening shortness of breath. The shortness of breath rapidly evolving the patient became quite dyspneic and he came into the hospital and the chest x-ray showed extensive consolidation of the left lung mainly in the left upper lobe and lingular segment and some in the left lower lobe. Based on that, the patient was immediately placed on a BiPAP at a pressure of 12/6 cm of water with FiO2 of 40%. His current respiratory rate is around 27. He is awake and alert. His generating a tidal volume of 750. CTA of the chest was also done in the emergency that showed no evidence of any pulmonary embolism. There was areas of spiculation in the right upper lobe measuring 15 mm suspicious for malignancy. At the same time, there was diffuse consolidation involving the left lung more so on the left upper lobe and to lesser extent in the left lower lobe. There is also some background emphysema as noted. The patient was already given a dose of Zosyn and dose of vancomycin. He was not on bronchodilators. He is started on steroids. He is still short of breath and is using his abdomen to breathe and is doing some abdominal breathing. He is known to have [id number] smoking history and he quit smoking in December 2021. Has rheumatoid arthritis. He has also cardiomyopathy, coronary artery disease, previous coronary stents, previous vascular intervention for peripheral vascular disease including stenting to his lower extremities and he has had previous orthopedic surgeries. He has also gout, chronic anemia, right hip avascular necrosis. He is oxygen dependent and he typically utilizes oxygen at 4 L/m nasal cannula on an outpatient basis. CAT scan of the chest also showed a small to moderate-sized hiatal hernia. 07/26/2022, the patient remains on a BiPAP. He was briefly taken off the BiPAP this morning through the small bites and immediately following that he was placed back on a BiPAP pressure of 12/5 cm both of his current FiO2 is at 40%. He seems to be slightly more comfortable compared to yesterday although he is still tachypneic even while being on a BiPAP. He is able to generate adequate tidal volumes while on the BiPAP. The chest x-ray showing some limited improvement in the extensive left upper lobe pulmonary infiltrate. I would say that his some interval improvement in the pneumonia. The patient was started on broad-spectrum antibiotics and he is on a combination of Zosyn and Levaquin. The white cell count is 11.0 with a hemoglobin of 7.2 which is about compared to yesterday. No evidence of any GI bleeding. Electrodes are within normal limits. Pro calcitonin level was elevated at 0.9 and the patient remains on a combination of bronchodilators and steroids. No other significant events. No altered mentation. No agitation. 07/26/2022, the patient is being seen for a follow-up. The patient's is feeling better. After spending the entire night on a BiPAP at a pressure clover 6 cm the fourth, the patient was placed on oxygen at 5 L nasal cannula. Doing well. Less shortness of breath. There are entry is improved bilaterally. Less bronchospastic and we compared to yesterday. Pneumonia in the left upper lobe was already improving. There was excellent at 6.7. Hemoglobin dropped down to 6.9 and there is no evidence of any acute bleeding. The patient will be given a unit of packed RBC. The rest of electrolytes are old stable for now, sodiums of 139, BUN is 26 and a creatinine of 0.7. As far as cultures, blood cultures were negative. The patient is being treated for possible hospital-acquired pneumonia and he is on a combination of Zosyn and vanco . No altered mentation. No signs of any CO2 narcosis. No encephalopathy at this point in time. He is also on vancomycin. Clinically improving. A repeat chest cystoscopy pending and this needs to be done on a daily basis. Reevaluated today on , patient remains in the ICU, he is marginal at best. Overnight the patient is on BiPAP with IPAP of 12 EPAP of 6, and he was on FiO2 of 35%. This morning he is on 4 L nasal cannula. A black seems to be comfortable, however he was more comfortable on BiPAP. He is on vancomycin and Zosyn empirically. Today's hemoglobin is 8.1. He is hemodynamically stable, not requiring any pressors. Chest x-ray continues to show significant infiltrates /patchy airspace disease within the left lung. Consistent with pneumonia. WBC count today is 6.8 hemoglobin is 8.1 electrodes are normal renal profile is normal. Patient received a unit of packed RBCs since admission for low hemoglobin of 6.9 yesterday Reevaluated today on 07/29/22, patient remains in the ICU, clinically slightly better today compared to yesterday. He has BiPAP at bedside use it yesterday only 2 hours. He is now on 3 L nasal cannula, and he is saturating in the low 90s. Patient remains on Zosyn and vancomycin, however since the cultures are nondiagnostic I will go ahead and keep him on Zosyn and discontinue vancomycin. Chest x-ray today continues to show significant infiltrate in the left lung, but improved compared to the previous chest x-ray. WBC count is 5.4 hemoglobin 8.4 electrodes are normal renal profile is normal Reevaluated today on 07/30/22, patient remains in the ICU, remains marginal at best, intermittently on BiPAP 12/6/35%, he is now on 3 days nasal cannula, O2 saturation is in the 90s. Patient is having intermittent episodes of nausea vomiting, shortness of breath and wheezing, he is receiving Xanax and Ativan, patient remains on Zosyn. His Pro calcitonin level was 5.6. Patient clearly h as significant infiltrate in the left lung, and he has underlying severe COPD. Started out as a left upper lobe infiltrate, and seems to have progressed. Chest x-ray seems to be slightly better compared to the last 2 days. Clinically however the patient does not seem to be making significant progress WBC count today is 6.3 hemoglobin 8.5 electrolytes are normal sodium is a bit elevated at 145, basic metabolic profile is normal renal profile is normal Reevaluated today on 07/31/22, patient remains in the ICU, he is now on Precedex at 0.8 mcg/kg/h, he is on BiPAP 35% 12/6. Seems to be more comfortable, tolerating BiPAP much better, chest x-ray continues to show left upper lobe infiltrate, however seems to be slightly better, and suspect some component of mild interstitial edema. Today the patient seems to be a bit better compared to yesterday, nonetheless he remains quite ill, and prognosis remains very guarded. WBC count is 4.4 hemoglobin is 8.3 electrolytes are normal except for slightly elevated sodium of 145, hence we'll change the main IV fluid to D5W and on it at a low rate. Patient remains on antibiotics, Zosyn, his also on steroids, and Lasix 40 mg IV push every 12 hours. Patient is on multiple bronchodilators. Reevaluated today on 08/01/22, patient remains in the ICU, intermittently on BiPAP, he is now on IPAP 09/16 last 35%, and when he is off BiPAP she goes on 3 L nasal cannula. Surprisingly the patient is doing much better today, chest x-ray is showing improvement, patient remains on Precedex at 0.5 mcg/kg/h. He is on IV fluid in the form of D5W which I have changed to D5 45 at 50 mL per hour, remains on Lasix every 12. Patient remains on Zosyn he is alert, he seems to be much more comfortable today, and in less respiratory distress. WBC count is 3.1 hemoglobin is 8.6 electrolytes are normal renal profile is normal Reevaluated today on 08/02/22, patient remains in the ICU, he is now on 3 L nasal cannula, BiPAP is at bedside, patient seems to be doing great clinically, his chest x-ray is showing significant improvement in his left upper lobe infiltrate and improvement in his interstitial edema. Patient seems definitely more comfortable today than he has felt over the last few days. WBC count today is 2.6 with Jesu is 9.4 electrolytes are normal except for low potassium being addressed accordingly, renal profile is normal. Patient remains on multiple medications including Pulmicort updrafts, Perforomist updrafts, DuoNeb updrafts, patient is off Precedex, and today I plan to transfer the patient out of the ICU to regular medical floor. Patient remains on Lasix at 40 mg IV push with all hours, we will transition that to oral Lasix. And will taper down the dose of methylprednisolone today. Again I plan to transfer the patient out of the ICU today to a regular medical floor Reevaluated today on 08/03/22, patient remains as an overflow in the ICU. He is still on 3 L nasal cannula, doing great, intermittently on BiPAP, no major issues overnight, continues to improve, awaiting to be transferred to the regular medical floor. Labs today are basically unremarkable including normal CBC and normal basic metabolic profile, normal renal profile Objective - Vital Signs Vital signs: Vital Signs Temp 98.7 F 08/03/22 08:00 Pulse 86 08/03/22 11:43 Resp 18 08/03/22 08:00 BP 158/72 08/03/22 08:00 Pulse Ox 97 08/03/22 08:00 FiO2 35 08/03/22 07:15 Intake & Output 08/02/22 08/03/22 08/03/22 18:59 06:59 18:59 Intake Total 200 280 Output Total 1675 1400 Balance -1475 -1120 Intake: Intake, IV Titration 200 280 Amount Dextrose 5%-0.45% NaCl 1, 200 280 000 ml @ 50 mls/hr IV . Q20H [facility] Rx#:[id number] Output: Urine 1675 1400 Other: Voiding Method Indwelling Catheter Indwelling Catheter Indwelling Catheter # Bowel Movements 1 1 - Exam GENERAL EXAM: Revealed a 66-year-old white male on 3 L nasal cannula O2 sats were 97% HEAD: Normocephalic. Atraumatic. EYES: Normal reaction of pupils, equal size. NOSE: Clear with pink turbinates. THROAT: No erythema or exudates. NECK: No masses, no JVD. CHEST: No chest wall deformity. LUNGS: Minimal basilar crackles noted. No rhonchi no wheezes Cardiac: regular rhythm. Normal S1 and S2, no S3 gallop. ABDOMEN: Soft nontender no megaly no rebound no guarding SKIN: No rashes CENTRAL NERVOUS SYSTEM: Alert and oriented 3 no gross focal deficits EXTREMITIES: No clubbing edema or cyanosis. Psychiatric: Normal mood affect and normal mental status examination. - Labs CBC & Chem 7: 08/03/22 10:28 08/03/22 10:28 Labs: Abnormal Lab Results - Last 24 Hours (Table) 08/02/22 08/03/22 08/03/22 Range/Units 16:42 10: 10:28 RBC 3.08 L (4.30-5.90) m/uL Hgb 9.8 L (13.0-17.5) gm/dL Hct 30.6 L (39.0-53.0) % Plt Count 141 L (150-450) k/uL Carbon Dioxide 32 H (22-30) mmol/L BUN 37 H (9-20) mg/dL Glucose 220 H (74-99) mg/dL POC Glucose (mg/dL) 236 H (70-110) mg/dL Calcium 7.0 L (8.4-10.2) mg/dL Assessment and Plan Assessment: Impression: Acute on chronic hypoxic respiratory failure secondary to extensive left-sided pneumonia possibly hospital-acquired pneumonia. And secondary to acute exace rbation of COPD Severe underlying COPD Acute kidney injury secondary to above Acute exacerbation of COPD Chronic hypoxic respiratory failure, patient is normally on oxygen for his underlying COPD, FEV1 of 34% History of current 19 infection Underlying coronary arteriosclerosis and previous stent placement Peripheral vessel occlusive disease [id number] smoking history quit in December of 2021 Benign essential hypertension Dyslipidemia History of rheumatoid arthritis History of multiple orthopedic surgeries History of severe cardiomyopathy/ischemic in nature ejection fraction 35%. Recommendation: Continue Zosyn. Continue Lasix 40 mg by mouth twice a day Continue bronchodilators Change Solu-Medrol to prednisone 40 mg daily Continue subcu heparin for DVT prophylaxis Continue GI prophylaxis/Protonix Consider rehab placement Overall prognosis remains relatively guarded. Time with Patient: Less than 30
[2022-08-03] MEDS: predniSONE 20 MG TAB PO SCH (15:13)
--- NOTE | 2022-08-03 18:24 | P.PN ---
Subjective Progress Note Date: 08/03/22 This is a 66-year-old gentleman admitted with acute COPD exacerbation, multilobar pneumonia, severe COPD, history of recent covid, multiple frequent admissions regarding his acute hypoxic respiratory failure/COPD. Yesterday required a unit of packed RBCs for hemoglobin of 6.9, hemoglobin currently 8.1 O vernight patient became BiPAP dependent and is currently on BiPAP this morning. Chest CTA had reported to 15.5 mm spiculated mass right upper lobe highly suspicious for malignancy with 3 large scattered diffuse areas to partially consolidative and interstitial opacity in the left upper and lower lobes consistent with pneumonia, a few scattered tiny sclerotic densities in the thoracic spine, possible metastasis, large hiatal hernia, with no mediastinal hilar or axillary adenopathy. Chest x-ray reporting similar patchy airspace disease within the left lung, correlate for pneumonia, COPD changes. Continues on empiric antibiotics of Zosyn and vancomycin. Renal function stable. Afebrile, normal WBC. Blood cultures reporting no growth to date. Potassium 3.4, receiving supplementation per ICU protocol. 07/29/22 Maintained on Bipap,, O2 sats in the 90s. Code status changed to No code as per patient's request. Chest x-ray reporting similar patchy and interstitial infiltrates on the left, improving aeration on the right with similar appearances pseudosubluxation or superior subluxation of the left glenoid humeral joint. Maintained on vancomycin and Zosyn. Afebrile, normal WBC. Preliminary Blood cultures reporting no growth. 07/30/22 patient is currently off BiPAP his O2 sats remained low. He still has similar chest x-ray appearance as of yesterday continue IV vancomycin and Zosyn continue maximum pulmonary support. Patient denies any fever. He does admit to some nausea this morning which she is on IV Reglan for. 07/31/22 Patient seen today back on Ventimask rebreather still desaturating with difficulty breathing and poor air exchange. The patient remains afebrile. Patient still has diminished appetite. He denies any pain. 08/01/22 patient seen today he is off vent Ventimask rebreather. He is upright in bed and he is feeling much improvement today. His shortness of breath and wheezing has improved. He denies any fever he denies any pain. He remains in t ICU for now and will continue to monitor. 08/02/2022 Patient is seen today in the ICU with pulmonary following. Patient is using bipap at night and now down to 3L via NC. Wean as tolerated. Patient potassium is slightly low at 3.1 and will replace per protocol. Encourage oral intake. Encouraged increased activity as tolerated. Afebrile and denies chest pain or worsening shortness of breath. Continue duonebs. Chest xray shows continued resolving left infiltrate with left basilar opacity. Atelectasis. Recommend incentive spirometer. 08/03/2022 Patient is seen in follow up today as a hold in the Icu for med surg bed. Patient is continued on 3L via Nc and continued on duonebs, now oral prednisone, and IV zosyn. PT/OT to evaluate with possible ecf. Continue IS use at least 10 times per hours. Encourage increased activity and oral intake. Afebrile and denies chest pain or palpitations. No worsening shortness of breath. PHysical exam: GENERAL: Alert and oriented 3 ,SItting up in bed, on 3L HEENT: Normocephalic. Pupils reactive. Neck: supple, CHEST EXAMINATION: diminished breath sounds bilaterally with Scattered coarse rhonchi with crackles. CARDIAC: S1, S2 muffled ABDOMEN: Soft. Nontender, Bowel sounds normal. No organomegaly. No guarding. Extremities: reveal no edema. No clubbing or cyanosis Neurological: Cranial nerves 2 through 12 grossly intact. No focal deficits noted. diffuse weakness Skin: Warm and dry, No rash. Assessment: Acute kidney injury, improving Acute on chronic hypoxic respiratory failure secondary to left side pneumonia and COPD exacerbation hypokalemia, improved Acute respiratory failure COPD exacerbation Chronic anemia Pneumonia, possible hospital acquired GI and DVT prophylaxis Full code Plan: Continue on current medication regimen ,monitoring and symptomatic treatment. Currently an overflow in the ICU downgraded awaiting a bed. ECF being considered. Continued on 3L via NC. IV steroids being transitioned to oral prednisone. Continue IV zosyn. Duonebs. BiPAP at night and wean FI02 as tolerated. Prognosis guarded given multiple complex medical issues. Further recommendations to follow based on the clinical course of the patient. The impression and plan of care has been dictated as a scribe by Sandra Jones, nurse practitioner as directed. Dr. Andrew MD I have performed a history and examination and MDM of this patient, discussed the same with the dictator, and has been documented as a scribe. Based on total visit time, I have performed more than 50% of the visit. Any additional findings or plans will be noted. Objective - Vital Signs Vital signs: Vital Signs Temp 98.7 F 08/03/22 08:00 Pulse 84 08/03/22 08:00 Resp 18 08/03/22 08:00 BP 158/72 08/03/22 08:00 Pulse Ox 97 08/03/22 08:00 FiO2 35 08/03/22 07:15 Intake & Output 08/02/22 08/03/22 08/03/22 18:59 06:59 18:59 Intake Total 200 280 Output Total 1675 1400 Balance -1475 -1120 Intake: Intake, IV Titration 200 280 Amount Dextrose 5%-0.45% NaCl 1, 200 280 000 ml @ 50 mls/hr IV . Q20H [facility] Rx#:[id number] Output: Urine 1675 1400 Other: Voiding Method Indwelling Catheter Indwelling Catheter Indwelling Catheter # Bowel Movements 1 1 - Labs CBC & Chem 7: 08/03/22 10:28 08/03/22 10:28 Labs: Abnormal Lab Results - Last 24 Hours (Table) 08/02/22 Range/Units 16:42 POC Glucose (mg/dL) 236 H (70-110) mg/dL
[2022-08-03] MEDS: ATORVASTATIN 80 MG TAB PO SCH (20:22)
[2022-08-03] MEDS: DONEPEZIL 5 MG TAB PO SCH (20:22)
[2022-08-03] MEDS: LORazepam 1 MG/0.5 ML VIAL IV PRN (20:23)
[2022-08-03] MEDS: hydrOXYzine HCL 25 MG TAB PO SCH (20:34)
[2022-08-04] MEDS: FORMOTEROL FUMARATE 20 MCG/2 ML NEBU INHALATION SCH ×2 (07:38→20:07)
[2022-08-04] MEDS: BUDESONIDE 0.5 MG/2 ML NEBU INHALATION SCH ×2 (07:38→19:56)
[2022-08-04] MEDS: IPRATROPIUM-ALBUTEROL 3 ML NEB INHALATION PRN ×4 (07:38→23:16)
[2022-08-04] MEDS: CITALOPRAM HYDROBROMIDE 20 MG TAB PO SCH (09:27)
[2022-08-04] MEDS: FUROSEMIDE 40 MG TAB PO SCH ×2 (09:27→15:44)
[2022-08-04] MEDS: ALPRAZolam 0.5 MG TAB PO PRN ×2 (09:27→17:27)
[2022-08-04] MEDS: ENOXAPARIN 40 MG/0.4 ML SYRINGE SQ SCH (09:28)
[2022-08-04] MEDS: GABAPENTIN 300 MG CAP PO SCH ×3 (09:28→21:23)
[2022-08-04] MEDS: guaiFENesin 600 MG TABLET.ER PO SCH ×2 (09:28→20:07)
[2022-08-04] MEDS: FAMOTIDINE 20 MG TAB PO SCH (09:28)
[2022-08-04] MEDS: FERROUS SULFATE 325 MG TAB PO SCH (09:28)
[2022-08-04] MEDS: METOPROLOL SUCCINATE (ER) 25 MG TAB.ER.24H PO SCH (09:28)
[2022-08-04] MEDS: ASPIRIN 81 MG PO SCH (09:28)
[2022-08-04] MEDS: predniSONE 20 MG TAB PO SCH (09:28)
[2022-08-04] MEDS: allopurinoL 300 MG TAB PO SCH (09:51)
--- NOTE | 2022-08-04 12:11 | P.PN ---
Subjective Progress Note Date: 08/04/22 Principal diagnosis: Respiratory failure. Reevaluated today on 07/31/22, patient remains in the ICU, he is now on Precedex at 0.8 mcg/kg/h, he is on BiPAP 35% 09/16. Seems to be more comfortable, tolerating BiPAP much better, chest x-ray continues to show left upper lobe infiltrate, however seems to be slightly better, and suspect some component of mild interstitial edema. Today the patient seems to be a bit better compared to yesterday, nonetheless he remains quite ill, and prognosis remains very guarded. WBC count is 4.4 hemoglobin is 8.3 electrolytes are normal except for slightly elevated sodium of 145, hence we'll change the main IV fluid to D5W and on it at a low rate. Patient remains on antibiotics, Zosyn, his also on steroids, and Lasix 40 mg IV push every 12 hours. Patient is on multiple bronchodilators. Reevaluated today on 08/01/22, patient remains in the ICU, intermittently on BiPAP, he is now on IPAP 09/16 last 35%, and when he is off BiPAP she goes on 3 L nasal cannula. Surprisingly the patient is doing much better today, chest x-ray is showing improvement, patient remains on Precedex at 0.5 mcg/kg/h. He is on IV fluid in the form of D5W which I have changed to D5 45 at 50 mL per hour, remains on Lasix every 12. Patient remains on Zosyn he is alert, he seems to be much more comfortable today, and in less respiratory distress. WBC count is 3.1 hemoglobin is 8.6 electrolytes are normal renal profile is normal Reevaluated today on 08/02/22, patient remains in the ICU, he is now on 3 L nasal cannula, BiPAP is at bedside, patient seems to be doing great clinically, his chest x-ray is showing significant improvement in his left upper lobe infiltrate and improvement in his interstitial edema. Patient seems definitely more comfortable today than he has felt over the last few days. WBC count today is 2.6 with Jesu is 9.4 electrolytes are normal except for low potassium being addressed accordingly, renal profile is normal. Patient remains on multiple medications including Pulmicort updrafts, Perforomist updrafts, DuoNeb updrafts, patient is off Precedex, and today I plan to transfer the patient out of the ICU to regular medical floor. Patient remains on Lasix at 40 mg IV push with all hours, we will transition that to oral Lasix. And will taper down the dose of methylprednisolone today. Again I plan to transfer the patient out of the ICU today to a regular medical floor Reevaluated today on 08/03/22, patient remains as an overflow in the ICU. He is still on 3 L nasal cannula, doing great, intermittently on BiPAP, no major issues overnight, continues to improve, awaiting to be transferred to the regular medical floor. Labs today are basically unremarkable including normal CBC and normal basic metabolic profile, normal renal profile Progress note dated 08/04/2022. This is a 66-year-old male with history of severe COPD. He was admitted back on July 25, with a COPD exacerbation, and suspected left-sided pneumonia. He alternates between BiPAP, with settings of 12/6 and 35%, with a nasal cannula, at 3 L. He is not receiving any IV fluids. The patient is someone who could be transferred out to the general medical floor. Clinically, he appears to be relatively stable. No new labs today. The labs from August 03 are reviewed. Chest x-ray from August 02 shows elevated left diaphragm, with left basilar opacity, likely representing atelectasis. There is improved and resolving left suprahilar infiltrate. Blood cultures are negative. Objective - Vital Signs Vital signs: Vital Signs Temp 98.3 F 08/04/22 08:00 Pulse 88 08/04/22 11:14 Resp 14 08/04/22 08:00 BP 134/62 08/04/22 08:00 Pulse Ox 96 08/03/22 22:00 FiO2 35 08/04/22 08:20 Intake & Output 08/03/22 08/04/22 08/04/22 18:59 06:59 18:59 Intake Total 400 Output Total 1350 1500 Balance -1350 -1100 Intake: Oral 400 Output: Urine 1350 1500 Other: Voiding Method Indwelling Catheter Indwelling Catheter Indwelling Catheter - Exam No acute distress, currently on BiPAP therapy. HEENT examination is grossly unremarkable. Neck supple. Full range of motion. No adenopathy thyromegaly or neck vein distention. Cardiovascular examination reveals regular rhythm rate. S1-S2 normal. No S3 or S4. No discernible murmur noted. Heart sounds are distant. Heart rate 88 bpm. Lungs reveal scattered diffuse rhonchi, and mild expiratory wheezes. No crackles. Breath sounds equal bilaterally, but diminished throughout. 3 L saturation is 93%. Abdomen soft bowel sounds are heard. No masses or tenderness. Extremities are intact. No cyanosis clubbing or edema. Skin is without rash or lesion. Neurologic examination is brief but nonfocal. - Labs CBC & Chem 7: 08/03/22 10:28 08/03/22 10:28 Assessment and Plan Assessment: Acute on chronic hypoxemic respiratory failure secondary to extensive left-sided pneumonia. Acute exacerbation of severe COPD. Acute kidney injury. Chronic hypoxemic respiratory failure. Previous history of coronavirus infection. CAD with previous stent placement. PVOD. Previous history of heavy tobacco use. Benign essential hypertension. Hyperlipidemia. History of rheumatoid arthritis. Severe ischemic cardiomyopathy. Plan: Plan dated 08/04/2022. The patient continues on Zosyn, bronchodilators, and corticosteroids. The patient also continues on GI and DVT prophylaxis. The patient would like to be discharged home. That may or may not occur. The patient could certainly be discharged out of the intensive care unit. Labs, x-rays, and medications are all reviewed. Prognosis is certainly guarded. The patient does have severe COPD. He apparently finally quit smoking in December 2021. Time with Patient: Less than 30
[2022-08-04] MEDS: LORazepam 1 MG/0.5 ML VIAL IV PRN ×2 (13:39→20:02)
--- NOTE | 2022-08-04 16:16 | P.PN ---
Subjective Progress Note Date: 08/04/22 This is a 66-year-old gentleman admitted with acute COPD exacerbation, multilobar pneumonia, severe COPD, history of recent covid, multiple frequent admissions regarding his acute hypoxic respiratory failure/COPD. Yesterday required a unit of packed RBCs for hemoglobin of 6.9, hemoglobin currently 8.1 Overnight patient became BiPAP dependent and is currently on BiPAP this morning. Chest CTA had reported to 15.5 mm spiculated mass right upper lobe highly suspicious for malignancy with 3 large scattered diffuse areas to partially consolidative and interstitial opacity in the left upper and lower lobes consistent with pneumonia, a few scattered tiny sclerotic densities in the thoracic spine, possible metastasis, large hiatal hernia, with no mediastinal hilar or axillary adenopathy. Chest x-ray reporting similar patchy airspace disease within the left lung, correlate for pneumonia, COPD changes. Continues on empiric antibiotics of Zosyn and vancomycin. Renal function stable. Afebrile, normal WBC. Blood cultures reporting no growth to date. Potassium 3.4, receiving supplementation per ICU protocol. 07/29/22 Maintained on Bipap,, O2 sats in the 90s. Code status changed to No code as per patient's request. Chest x-ray reporting similar patchy and interstitial infiltrates on the left, improving aeration on the right with similar appearances pseudosubluxation or superior subluxation of the left glenoid humeral joint. Maintained on vancomycin and Zosyn. Afebrile, normal WBC. Preliminary Blood cultures reporting no growth. 07/30/22 patient is currently off BiPAP his O2 sats remained low. He still has similar chest x-ray appearance as of yesterday continue IV vancomycin and Zosyn continue maximum pulmonary support. Patient denies any fever. He does admit to some nausea this morning which she is on IV Reglan for. 07/31/22 Patient seen today back on Ventimask rebreather still desaturating with difficulty breathing and poor air exchange. The patient remains afebrile. Patient still has diminished appetite. He denies any pain. 08/01/22 patient seen today he is off vent Ventimask rebreather. He is upright in bed and he is feeling much improvement today. His shortness of breath and wheezing has improved. He denies any fever he denies any pain. He remains in the ICU for now and will continue to monitor. 08/04/2022 currently on 35% FIO2 BiPAP, maintaining O2 sats in the high 90s. Maintained on nebulized bronchodilators, antibiotics with prior chest x-ray r eporting improvement. Denies chest pain, palpitations. Afebrile. Objective - Vital Signs Vital signs: Vital Signs Temp 98.3 F 08/04/22 08:00 Pulse 88 08/04/22 11:14 Resp 14 08/04/22 08:00 BP 134/62 08/04/22 08:00 Pulse Ox 96 08/03/22 22:00 FiO2 35 08/04/22 08:20 Intake & Output 08/03/22 08/04/22 08/04/22 18:59 06:59 18:59 Intake Total 400 Output Total 1350 1500 Balance -1350 -1100 Intake: Oral 400 Output: Urine 1350 1500 Other: Voiding Method Indwelling Catheter Indwelling Catheter Indwelling Catheter - Exam PHYSICAL EXAMINATION: GENERAL: Alert and oriented 3 ,SItting up in bed, wearing Bipap HEENT: Normocephalic. Pupils reactive. Neck: supple, CHEST EXAMINATION: Bilateral air entry ,Scattered coarse rhonchi with crackles. CARDIAC: Normal S1, S2 with no gallops. No murmurs. ABDOMEN: Soft. Nontender, Bowel sounds normal. No organomegaly. No guarding. Extremities: reveal no edema. No clubbing or cyanosis Neurological: Cranial nerves 2 through 12 grossly intact. No focal deficits noted Skin: Warm and dry, No rash. - Labs CBC & Chem 7: 08/03/22 10:28 08/03/22 10:28 Assessment and Plan Assessment: Acute on chronic hypoxic respiratory failure secondary to Acute COPD exacerbation, extensive left-sided pneumonia, possibly hospital-acquired Generalized weakness and fatigue secondary to the above Acute renal failure secondary to the above Acute on chronic anemia, status post 1 unit packed RBCs, in a patient with h istory of pancytopenia. Prior EGD and colonoscopy07/[address] Claire Rm, had reported mild gastritis, hiatal hernia, scattered sigmoid diverticulosis and small internal hemorrhoids Recent COVID 19 infection, Vaccinated and boosted X 2. Chronically elevated left hemidiaphragm Hypertension Hyperlipidemia Coronary artery disease with history of stent placement PVD History of DVT Hyperlipidemia Osteoarthritis Rheumatoid arthritis Prior nicotine dependence, extensive 50 year smoking history, quit December 2021 Areas of spiculation in the right upper lobe measuring 15 mm suspicious for malignancy, reported per CT, further work up op. Cardiomyopathy Protein calorie malnutrition, moderate, BMI 20.9 Plan: Continue on current medication regime ,monitoring and symptomatic treatment. Aggressive pulmonary toileting with BiPAP , nebulized bronchodilators, IV steroids, Zosyn. ICU management As per court stenographer. Prognosis guarded given multiple complex medical issues. The impression and plan of care has been dictated as directed. : I performed a history and examination of this patient, discussed the same with the dictator. I agree with the dictator's note ,documented as a scribe. Any additional findings or plans will be noted.
[2022-08-04] MEDS: ONDANSETRON 4 MG/2 ML VIAL IVP PRN (18:22)
[2022-08-04] MEDS: hydrOXYzine HCL 25 MG TAB PO SCH (20:07)
[2022-08-04] MEDS: DONEPEZIL 5 MG TAB PO SCH (20:08)
[2022-08-04] MEDS: ATORVASTATIN 80 MG TAB PO SCH (20:09)
[2022-08-05] MEDS: IPRATROPIUM-ALBUTEROL 3 ML NEB INHALATION PRN ×6 (03:26→23:21)
[2022-08-05] MEDS: LORazepam 1 MG/0.5 ML VIAL IV PRN ×4 (05:13→20:40)
[2022-08-05] MEDS: BUDESONIDE 0.5 MG/2 ML NEBU INHALATION SCH ×2 (07:54→19:47)
[2022-08-05] MEDS: FORMOTEROL FUMARATE 20 MCG/2 ML NEBU INHALATION SCH ×2 (07:54→19:47)
[2022-08-05] MEDS: GABAPENTIN 300 MG CAP PO SCH ×3 (08:19→21:01)
[2022-08-05] MEDS: METOPROLOL SUCCINATE (ER) 25 MG TAB.ER.24H PO SCH (08:19)
[2022-08-05] MEDS: allopurinoL 300 MG TAB PO SCH (08:19)
[2022-08-05] MEDS: CITALOPRAM HYDROBROMIDE 20 MG TAB PO SCH (08:19)
[2022-08-05] MEDS: ASPIRIN 81 MG PO SCH (08:19)
[2022-08-05] MEDS: FUROSEMIDE 40 MG TAB PO SCH ×2 (08:19→18:12)
[2022-08-05] MEDS: ENOXAPARIN 40 MG/0.4 ML SYRINGE SQ SCH (08:19)
[2022-08-05] MEDS: guaiFENesin 600 MG TABLET.ER PO SCH ×2 (08:19→20:56)
[2022-08-05] MEDS: FAMOTIDINE 20 MG TAB PO SCH (08:20)
[2022-08-05] MEDS: FERROUS SULFATE 325 MG TAB PO SCH (08:20)
[2022-08-05] MEDS: predniSONE 20 MG TAB PO SCH (08:20)
[2022-08-05] MEDS: ALPRAZolam 0.5 MG TAB PO PRN (08:27)
--- NOTE | 2022-08-05 11:36 | P.PN ---
Subjective Progress Note Date: 08/05/22 Principal diagnosis: Respiratory failure. Reevaluated today on 07/31/22, patient remains in the ICU, he is now on Precedex at 0.8 mcg/kg/h, he is on BiPAP 35% 09/16. Seems to be more comfortable, tolerating BiPAP much better, chest x-ray continues to show left upper lobe infiltrate, however seems to be slightly better, and suspect some component of mild interstitial edema. Today the patient seems to be a bit better compared to yesterday, nonetheless he remains quite ill, and prognosis remains very guarded. WBC count is 4.4 hemoglobin is 8.3 electrolytes are normal except for slightly elevated sodium of 145, hence we'll change the main IV fluid to D5W and on it at a low rate. Patient remains on antibiotics, Zosyn, his also on steroids, and Lasix 40 mg IV push every 12 hours. Patient is on multiple bronchodilators. Reevaluated today on 08/01/22, patient remains in the ICU, intermittently on BiPAP, he is now on IPAP 09/16 last 35%, and when he is off BiPAP she goes on 3 L nasal cannula. Surprisingly the patient is doing much better today, chest x-ray is showing improvement, patient remains on Precedex at 0.5 mcg/kg/h. He is on IV fluid in the form of D5W which I have changed to D5 45 at 50 mL per hour, remains on Lasix every 12. Patient remains on Zosyn he is alert, he seems to be much more comfortable today, and in less respiratory distress. WBC count is 3.1 hemoglobin is 8.6 electrolytes are normal renal profile is normal Reevaluated today on 08/02/22, patient remains in the ICU, he is now on 3 L nasal cannula, BiPAP is at bedside, patient seems to be doing great clinically, his chest x-ray is showing significant improvement in his left upper lobe infiltrate and improvement in his interstitial edema. Patient seems definitely more comfortable today than he has felt over the last few days. WBC count today is 2.6 with Jesu is 9.4 electrolytes are normal except for low potassium being addressed accordingly, renal profile is normal. Patient remains on multiple medications including Pulmicort updrafts, Perforomist updrafts, DuoNeb updrafts, patient is off Precedex, and today I plan to transfer the patient out of the ICU to regular medical floor. Patient remains on Lasix at 40 mg IV push with all hours, we will transition that to oral Lasix. And will taper down the dose of methylprednisolone today. Again I plan to transfer the patient out of the ICU today to a regular medical floor Reevaluated today on 08/03/22, patient remains as an overflow in the ICU. He is still on 3 L nasal cannula, doing great, intermittently on BiPAP, no major issues overnight, continues to improve, awaiting to be transferred to the regular medical floor. Labs today are basically unremarkable including normal CBC and normal basic metabolic profile, normal renal profile Progress note dated 08/04/2022. This is a 66-year-old male with history of severe COPD. He was admitted back on July 25, with a COPD exacerbation, and suspected left-sided pneumonia. He alternates between BiPAP, with settings of 12/6 and 35%, with a nasal cannula, at 3 L. He is not receiving any IV fluids. The patient is someone who could be transferred out to the general medical floor. Clinically, he appears to be relatively stable. No new labs today. The labs from August 03 are reviewed. Chest x-ray from August 02 shows elevated left diaphragm, with left basilar opacity, likely representing atelectasis. There is improved and resolving left suprahilar infiltrate. Blood cultures are negative. Progress note dated 08/05/2022. 66-year-old male, seen in room 266. He has a history of severe COPD. Yesterday, he was on 3 L, and wanted to be discharged home. The patient is now on BiPAP at 12/6 and 35%. According to the nurse, he is spending more time BiPAP, and left time on nasal prongs. Probably, it would not be whiteside to send him home, but rather than to a rehab facility. He is not receiving any IV fluids. This morning he is on BiPAP. When not on BiPAP, he is on 3 L. No new labs today. The patient apparently has told the nurse that he has BiPAP at home. I've asked the nurse to call his to ask that question. Objective - Vital Signs Vital signs: Vital Signs Temp 98.8 F 08/05/22 08:00 Pulse 90 10/25/22 11:16 Resp 30 H 08/05/22 08:00 BP 131/86 08/05/22 08:00 Pulse Ox 99 08/05/22 08:00 FiO2 35 08/05/22 10:37 Intake & Output 08/04/22 08/05/22 08/05/22 18:59 06:59 18:59 Intake Total 600 500 Output Total 1200 1550 Balance -600 -1050 Intake: Oral 600 500 Output: Urine 1200 1300 Stool 250 Other: Voiding Method Indwelling Catheter Indwelling Catheter Indwelling Catheter # Bowel Movements 1 - Exam No acute distress, currently on BiPAP therapy. HEENT examination is grossly unremarkable. Neck supple. Full range of motion. No adenopathy thyromegaly or neck vein distention. Cardiovascular examination reveals regular rhythm rate. S1-S2 normal. No S3 or S4. No discernible murmur noted. Heart sounds are distant. Heart rate 90 bpm. Lungs reveal scattered diffuse rhonchi, and mild expiratory wheezes. No crack les. Breath sounds equal bilaterally, but diminished throughout. Abdomen soft bowel sounds are heard. No masses or tenderness. Extremities are intact. No cyanosis clubbing or edema. Skin is without rash or lesion. Neurologic examination is brief but nonfocal. - Labs CBC & Chem 7: 08/03/22 10:28 08/03/22 10:28 Assessment and Plan Assessment: Acute on chronic hypoxemic respiratory failure secondary to extensive left-sided pneumonia. Acute exacerbation of severe COPD. Acute kidney injury. Chronic hypoxemic respiratory failure. Previous history of coronavirus infection. CAD with previous stent placement. PVOD. Previous history of heavy tobacco use. Benign essential hypertension. Hyperlipidemia. History of rheumatoid arthritis. Severe ischemic cardiomyopathy. Plan: Plan dated 08/04/2022. The patient continues on Zosyn, bronchodilators, and corticosteroids. The patient also continues on GI and DVT prophylaxis. The patient would like to be discharged home. That may or may not occur. The patient could certainly be discharged out of the intensive care unit. Labs, x-rays, and medications are all reviewed. Prognosis is certainly guarded. The patient does have severe COPD. He apparently finally quit smoking in December 2021. Plan dated 08/05/2022. The patient would likely be a better candidate for discharge to a rehab facility rather than going home. I believe that if he goes home, he'll be back in the hospital in a day or so. Anyway, I did express that to the airport planner. Labs, x-rays, and medications are reviewed. Labs, x-rays, and medications are reviewed. We will continue to follow and make recommendations along the way. Prognosis is certainly guarded. Time with Patient: Less than 30
--- NOTE | 2022-08-05 18:42 | P.DS ---
Providers Date of admission: 07/25/22 12:43 Expected date of discharge: 08/05/22 Attending physician: David Woodson Consults: 07/25/22 12:53 Consult Physician Stat Consulting Provider: Ramon Aly Consult Reason/Comments: Respiratory failure Do you want consulting provider notified?: Yes Primary care physician: David Woodson Hospital Course: Final Diagnoses: Acute on chronic hypoxic respiratory failure secondary to Acute COPD exacerbation, extensive left-sided pneumonia, possibly hospital-acquired Generalized weakness and fatigue secondary to the above Acute renal failure secondary to the above Acute on chronic anemia, status post 1 unit packed RBCs, in a patient with history of pancytopenia. Prior EGD and colonoscopy07/[address] Claire Rm, had reported mild gastritis, hiatal hernia, scattered sigmoid diverticulosis and small internal hemorrhoids Recent COVID 19 infection, Vaccinated and boosted X 2. Chronically elevated left hemidiaphragm Hypertension Hyperlipidemia Coronary artery disease with history of stent placement PVD History of DVT Hyperlipidemia Osteoarthritis Rheumatoid arthritis Prior nicotine dependence, extensive 50 year smoking history, quit December 2021 Areas of spiculation in the right upper lobe measuring 15 mm suspicious for malignancy, reported per CT, further work up op. Cardiomyopathy Protein calorie malnutrition, moderate, BMI 22.8 Hospital course:This is a 66-year-old gentleman admitted with acute COPD exacerbation, multilobar pneumonia, severe COPD, history of recent covid, multiple frequent admissions regarding his acute hypoxic respiratory failure/COPD. Yesterday required a unit of packed RBCs for hemoglobin of 6.9, hemoglobin currently 8.1 Overnight patient became BiPAP dependent and is currently on BiPAP this morning. Chest CTA had reported to 15.5 mm spiculated mass right upper lobe highly suspicious for malignancy with 3 large scattered diffuse areas to partially consolidative and interstitial opacity in the left upper and lower lobes consistent with pneumonia, a few scattered tiny sclerotic densities in the thoracic spine, possible metastasis, large hiatal hernia, with no mediastinal hilar or axillary adenopathy. Chest x-ray reporting similar patchy airspace disease within the left lung, correlate for pneumonia, COPD changes. Continues on empiric antibiotics of Zosyn and vancomycin. Renal function stable. Afebrile, normal WBC. Blood cultures reporting no growth to date. Potassium 3.4, receiving supplementation per ICU protocol. 07/29/22 Maintained on Bipap,, O2 sats in the 90s. Code status changed to No code as per patient's request. Chest x-ray reporting similar patchy and interstitial infiltrates on the left, improving aeration on the right with similar appearances pseudosubluxation or superior subluxation of the left glenoid humeral joint. Maintained on vancomycin and Zosyn. Afebrile, normal WBC. Preliminary Blood cultures reporting no growth. 07/30/22 patient is currently off BiPAP his O2 sats remained low. He still has similar chest x-ray appearance as of yesterday continue IV vancomycin and Zosyn continue maximum pulmonary support. Patient denies any fever. He does admit to some nausea this morning which she is on IV Reglan for. 07/31/22 Patient seen today back on Ventimask rebreather still desaturating with difficulty breathing and poor air exchange. The patient remains afebrile. Patient still has diminished appetite. He denies any pain. 08/01/22 patient seen today he is off vent Ventimask rebreather. He is upright in bed and he is feeling much improvement today. His shortness of breath and wheezing has improved. He denies any fever he denies any pain. He remains in the ICU for now and will continue to monitor. 08/04/2022 currently on 35% FIO2 BiPAP, maintaining O2 sats in the high 90s. Maintained on nebulized bronchodilators, antibiotics with prior chest x-ray reporting improvement. Denies chest pain, palpitations. Afebrile. Significant clinical improvement, continues to require BiPAP at night. Currently maintaining O2 sats in the high 90s to 100% on 3 L nasal cannula. Patient will be discharged to subacute rehab. in a stable condition with guarded prognosis, as recommended per care coordination manager/electrical products engineer. Authorization pending. The impression and plan of care has been dictated as directed. : I performed a history and examination of this patient, discussed the same with the dictator. I agree with the dictator's note ,documented as a scribe. Any additional findings or plans will be noted. Patient Condition at Discharge: Stable Plan - Discharge Summary Discharge Rx Participant: Yes New Discharge Prescriptions: New Furosemide [Lasix] 40 mg PO BID@0900,1600 tab Formoterol Fumarate [Perforomist] 20 mcg INHALATION RT-BID ml Budesonide [Pulmicort] 0.5 mg INHALATION RT-BID ml Sodium Chloride 0.65% Nasal [Deep Sea (Saline)] 2 spray NASAL QID PRN ml PRN Reason: Dry Nasal Passages Ipratropium-Albuterol Nebulize [Duoneb 0.5 mg-3 mg/3 ml Soln] 3 ml INHALATION RT-Q4H PRN each PRN Reason: Shortness Of Breath Or Wheezing Enoxaparin [Lovenox] 40 mg SQ DAILY each guaiFENesin [Mucinex] 600 mg PO Q12HR tab predniSONE 10 mg PO DIRECTED #30 tab ALPRAZolam [Xanax] 0.5 mg PO Q8HR PRN #9 tab PRN Reason: Anxiety Continue Ipratropium-Albuterol Nebulize [Duoneb 0.5 mg-3 mg/3 ml Soln] 3 ml INHALATION RT-QID Albuterol Sulfate [Proair Hfa] 2 puff INHALATION RT-Q4H PRN PRN Reason: Shortness Of Breath Ferrous Sulfate [Iron] 325 mg PO DAILY Donepezil [Aricept] 5 mg PO HS allopurinoL [Zyloprim] 300 mg PO DAILY Citalopram Hydrobromide [CeleXA] 20 mg PO DAILY Aspirin [Adult Low Dose Aspirin EC] 81 mg PO DAILY Guselkumab [Tremfya] 100 mg SQ Q56D hydrOXYzine HCL [Atarax] 25 mg PO HS Metoprolol Succinate [Toprol XL] 25 mg PO DAILY Famotidine [Pepcid] 20 mg PO DAILY Atorvastatin Calcium [Lipitor] 80 mg PO HS Acetaminophen Tab [Tylenol] 650 mg PO Q4HR PRN PRN Reason: Fever And/ Or Pain Gabapentin [Neurontin] 300 mg PO TID #9 cap Discontinued lisinopriL [Zestril] 10 mg PO HS Sildenafil Citrate 100 mg PO DAILY PRN PRN Reason: e.d. Furosemide [Lasix] 20 mg PO DAILY traMADol HCL [Ultram ER] 100 mg PO BID PRN PRN Reason: Pain Budesonide-Formot 160-4.5 Mcg [Symbicort 160-4.5 Mcg Inhaler] 2 puff INHALATION RT-BID #1 each Discharge Medication List Ipratropium-Albuterol Nebulize [Duoneb 0.5 mg-3 mg/3 ml Soln] 3 ml INHALATION RT-QID 09/07/19 [History] Albuterol Sulfate [Proair Hfa] 2 puff INHALATION RT-Q4H PRN 07/30/19 [History] Ferrous Sulfate [Iron] 325 mg PO DAILY 09/12/19 [History] Donepezil [Aricept] 5 mg PO HS 11/03/19 [History] allopurinoL [Zyloprim] 300 mg PO DAILY 11/03/19 [History] Aspirin [Adult Low Dose Aspirin EC] 81 mg PO DAILY 05/21/20 [History] Citalopram Hydrobromide [CeleXA] 20 mg PO DAILY 05/21/20 [History] Guselkumab [Tremfya] 100 mg SQ Q56D 05/21/20 [History] Atorvastatin Calcium [Lipitor] 80 mg PO HS 04/02/21 [History] Famotidine [Pepcid] 20 mg PO DAILY 04/02/21 [History] Metoprolol Succinate [Toprol XL] 25 mg PO DAILY 04/02/21 [History] hydrOXYzine HCL [Atarax] 25 mg PO HS 05/19/22 [History] Acetaminophen Tab [Tylenol] 650 mg PO Q4HR PRN 07/11/22 [History] ALPRAZolam [Xanax] 0.5 mg PO Q8HR PRN #9 tab 08/05/22 [Rx] Budesonide [Pulmicort] 0.5 mg INHALATION RT-BID ml 08/05/22 [Rx] Enoxaparin [Lovenox] 40 mg SQ DAILY each 08/05/22 [Rx] Formoterol Fumarate [Perforomist] 20 mcg INHALATION RT-BID ml 08/05/22 [Rx] Furosemide [Lasix] 40 mg PO BID@0900,1600 tab 08/05/22 [Rx] Gabapentin [Neurontin] 300 mg PO TID #9 cap 08/05/22 [Rx] Ipratropium-Albuterol Nebulize [Duoneb 0.5 mg-3 mg/3 ml Soln] 3 ml INHALATION RT-Q4H PRN each 08/05/22 [Rx] Sodium Chloride 0.65% Nasal [Deep Sea (Saline)] 2 spray NASAL QID PRN ml 08/05/22 [Rx] guaiFENesin [Mucinex] 600 mg PO Q12HR tab 08/05/22 [Rx] predniSONE 10 mg PO DIRECTED #30 tab 08/05/22 [Rx] Follow up Appointment(s)/Referral(s): [facility] Nurse, [NON-STAFF] - ([facility] will call you to arrange a visit) Activity/Diet/Wound Care/Special Instructions: MICHAEL: BIPAP: settings as per pulmonary: 3lnc O2/parameters as per pulmonary CBC,BMP in 3 days Discharge Disposition: TRANSFER TO SNF/ECF
[2022-08-05] MEDS: hydrOXYzine HCL 25 MG TAB PO SCH (20:52)
[2022-08-05] MEDS: ATORVASTATIN 80 MG TAB PO SCH (20:52)
[2022-08-05] MEDS: DONEPEZIL 5 MG TAB PO SCH (20:56)
--- NOTE | 2022-08-05 21:23 | XR ---
EXAMINATION TYPE: XR chest 1V portable DATE OF EXAM: 08/05/2022 COMPARISON: 08/02/2022 HISTORY: Vertebra TECHNIQUE: FINDINGS: There is small linear density left lateral lung base. There is elevated left diaphragm. Rig ht lung is clear. No heart failure. There is old right-sided healed rib fractures. There are no hilar masses. Thoracic aorta is atheromatous. IMPRESSION: There is pleural diaphragmatic scarring at the left lung base. No definite acute lung dis ease. No significant change.
[2022-08-06] MEDS: IPRATROPIUM-ALBUTEROL 3 ML NEB INHALATION PRN ×6 (03:28→23:29)
[2022-08-06] MEDS: BUDESONIDE 0.5 MG/2 ML NEBU INHALATION SCH ×2 (07:28→19:36)
[2022-08-06] MEDS: FORMOTEROL FUMARATE 20 MCG/2 ML NEBU INHALATION SCH ×2 (07:43→19:36)
--- NOTE | 2022-08-06 08:01 | XR ---
EXAMINATION TYPE: XR chest 1V portable DATE OF EXAM: 08/06/2022 COMPARISON: 08/05/2022 INDICATION: Pneumonia TECHNIQUE: Single frontal view of the chest is obtained. FINDINGS: The heart size is normal. The pulmonary vasculature is normal. There is some elevation of the lateral left diaphragm. A small effusion or atelectasis may be present . Some atelectasis along left heart border may be present. IMPRESSION: 1. Chronic elevation left diaphragm. 2. Some atelectatic type changes at the left heart border and apex.
[2022-08-06] MEDS: GABAPENTIN 300 MG CAP PO SCH ×3 (09:08→21:31)
[2022-08-06] MEDS: ASPIRIN 81 MG PO SCH (09:08)
[2022-08-06] MEDS: predniSONE 20 MG TAB PO SCH (09:08)
[2022-08-06] MEDS: FUROSEMIDE 40 MG TAB PO SCH ×2 (09:08→16:21)
[2022-08-06] MEDS: guaiFENesin 600 MG TABLET.ER PO SCH ×2 (09:08→20:50)
[2022-08-06] MEDS: FAMOTIDINE 20 MG TAB PO SCH (09:08)
[2022-08-06] MEDS: ENOXAPARIN 40 MG/0.4 ML SYRINGE SQ SCH (09:08)
[2022-08-06] MEDS: METOPROLOL SUCCINATE (ER) 25 MG TAB.ER.24H PO SCH (09:08)
[2022-08-06] MEDS: CITALOPRAM HYDROBROMIDE 20 MG TAB PO SCH (09:08)
[2022-08-06] MEDS: FERROUS SULFATE 325 MG TAB PO SCH (09:08)
[2022-08-06] MEDS: allopurinoL 300 MG TAB PO SCH (09:10)
[2022-08-06] MEDS: LORazepam 1 MG/0.5 ML VIAL IV PRN ×2 (09:21→13:51)
[2022-08-06] MEDS: ACETAMINOPHEN TAB 325 MG TAB PO PRN (09:54)
[2022-08-06] MEDS: traMADol 50 MG TAB PO PRN ×2 (10:41→16:21)
--- NOTE | 2022-08-06 11:35 | P.PN ---
Subjective Progress Note Date: 08/06/22 Principal diagnosis: Respiratory failure. Reevaluated today on 07/31/22, patient remains in the ICU, he is now on Precedex at 0.8 mcg/kg/h, he is on BiPAP 35% 09/16. Seems to be more comfortable, tolerating BiPAP much better, chest x-ray continues to show left upper lobe infiltrate, however seems to be slightly better, and suspect some component of mild interstitial edema. Today the patient seems to be a bit better compared to yesterday, nonetheless he remains quite ill, and prognosis remains very guarded. WBC count is 4.4 hemoglobin is 8.3 electrolytes are normal except for slightly elevated sodium of 145, hence we'll change the main IV fluid to D5W and on it at a low rate. Patient remains on antibiotics, Zosyn, his also on steroids, and Lasix 40 mg IV push every 12 hours. Patient is on multiple bronchodilators. Reevaluated today on 08/01/22, patient remains in the ICU, intermittently on BiPAP, he is now on IPAP 09/16 last 35%, and when he is off BiPAP she goes on 3 L nasal cannula. Surprisingly the patient is doing much better today, chest x-ray is showing improvement, patient remains on Precedex at 0.5 mcg/kg/h. He is on IV fluid in the form of D5W which I have changed to D5 45 at 50 mL per hour, remains on Lasix every 12. Patient remains on Zosyn he is alert, he seems to be much more comfortable today, and in less respiratory distress. WBC count is 3.1 hemoglobin is 8.6 electrolytes are normal renal profile is normal Reevaluated today on 08/02/22, patient remains in the ICU, he is now on 3 L nasal cannula, BiPAP is at bedside, patient seems to be doing great clinically, his chest x-ray is showing significant improvement in his left upper lobe infiltrate and improvement in his interstitial edema. Patient seems definitely more comfortable today than he has felt over the last few days. WBC count today is 2.6 with Jesu is 9.4 electrolytes are normal except for low potassium being addressed accordingly, renal profile is normal. Patient remains on multiple medications including Pulmicort updrafts, Perforomist updrafts, DuoNeb updrafts, patient is off Precedex, and today I plan to transfer the patient out of the ICU to regular medical floor. Patient remains on Lasix at 40 mg IV push with all hours, we will transition that to oral Lasix. And will taper down the dose of methylprednisolone today. Again I plan to transfer the patient out of the ICU today to a regular medical floor Reevaluated today on 08/03/22, patient remains as an overflow in the ICU. He is still on 3 L nasal cannula, doing great, intermittently on BiPAP, no major issues overnight, continues to improve, awaiting to be transferred to the regular medical floor. Labs today are basically unremarkable including normal CBC and normal basic metabolic profile, normal renal profile Progress note dated 08/04/2022. This is a 66-year-old male with history of severe COPD. He was admitted back on July 25, with a COPD exacerbation, and suspected left-sided pneumonia. He alternates between BiPAP, with settings of 12/6 and 35%, with a nasal cannula, at 3 L. He is not receiving any IV fluids. The patient is someone who could be transferred out to the general medical floor. Clinically, he appears to be relatively stable. No new labs today. The labs from August 03 are reviewed. Chest x-ray from August 02 shows elevated left diaphragm, with left basilar opacity, likely representing atelectasis. There is improved and resolving left suprahilar infiltrate. Blood cultures are negative. Progress note dated 08/05/2022. 66-year-old male, seen in room 266. He has a history of severe COPD. Yesterday, he was on 3 L, and wanted to be discharged home. The patient is now on BiPAP at 12/6 and 35%. According to the nurse, he is spending more time BiPAP, and left time on nasal prongs. Probably, it would not be whiteside to send him home, but rather than to a rehab facility. He is not receiving any IV fluids. This morning he is on BiPAP. When not on BiPAP, he is on 3 L. No new labs today. The patient apparently has told the nurse that he has BiPAP at home. I've asked the nurse to call his to ask that question. Progress note dated 08/06/2022. 66-year-old male again seen in room 266. The patient has a history of severe COPD. The patient is currently on BiPAP, with settings of 12/6, and 35%. When he is not on BiPAP, he is on 3 L of oxygen. We spoke to his primary care provider today, who states that the plan is to try to get him discharged to a local care home. He is currently not receiving any IV fluids. The patient's last blood work done on August 03. Chest x-ray today shows chronic elevation of the left diaphragm, and atelectatic changes at the bases. Objective - Vital Signs Vital signs: Vital Signs Temp 98.1 F 08/06/22 08:00 Pulse 85 08/06/22 11:12 Resp 24 08/06/22 08:00 BP 111/99 08/06/22 08:00 Pulse Ox 95 08/06/22 08:00 FiO2 35 08/06/22 03:28 Intake & Output 08/05/22 08/06/22 08/06/22 18:59 06:59 18:59 Intake Total 200 300 Output Total 850 720 150 Balance -650 -420 -150 Intake: Oral 200 300 Output: Urine 850 720 150 Other: Voiding Method Indwelling Catheter Indwelling Catheter - Exam No acute distress, currently on BiPAP therapy. On 3 L, his saturations are 95%. HEENT examination is grossly unremarkable. Neck supple. Full range of motion. No adenopathy thyromegaly or neck vein distention. Cardiovascular examination reveals regular rhythm rate. S1-S2 normal. No S3 or S4. No discernible murmur noted. Heart sounds are distant. Heart rate 85 bpm. Lungs reveal scattered diffuse rhonchi, and mild expiratory wheezes. No crackles. Breath sounds equal bilaterally, but diminished throughout. Abdomen soft bowel sounds are heard. No masses or tenderness. Extremities are intact. No cyanosis clubbing or edema. Skin is without rash or lesion. Neurologic examination is brief but nonfocal. - Labs CBC & Chem 7: 08/03/22 10:28 08/03/22 10:28 Assessment and Plan Assessment: Acute on chronic hypoxemic respiratory failure secondary to extensive left-sided pneumonia. Acute exacerbation of severe COPD. Acute kidney injury. Chronic hypoxemic respiratory failure. Previous history of coronavirus infection. CAD with previous stent placement. PVOD. Previous history of heavy tobacco use. Benign essential hypertension. Hyperlipidemia. History of rheumatoid arthritis. Severe ischemic cardiomyopathy. Plan: Plan dated 08/04/2022. The patient continues on Zosyn, bronchodilators, and corticosteroids. The patient also continues on GI and DVT prophylaxis. The patient would like to be discharged home. That may or may not occur. The patient could certainly be discharged out of the intensive care unit. Labs, x-rays, and medications are all reviewed. Prognosis is certainly guarded. The patient does have severe COPD. He apparently finally quit smoking in December 2021. Plan dated 08/05/2022. The patient would likely be a better candidate for discharge to a rehab facility rather than going home. I believe that if he goes home, he'll be back in the hospital in a day or so. Anyway, I did express that to the production planner. Labs, x-rays, and medications are reviewed. Labs, x-rays, and medications are reviewed. We will continue to follow and make recommendations along the way. Prognosis is certainly guarded. Plan dated 08/06/2022. I spoke to the patient's primary doctor today, who stated that the patient will be discharged to a rehab facility/care home. Hopefully, there, he can get BiPAP therapy. It does not appear that he has BiPAP or CPAP at home. Labs, x- rays, and medications are reviewed. On 3 L, saturations are in the mid 90s. Medications are reviewed. Everything appears appropriate. He's been switched to prednisone 40 mg a day. He is getting updrafts with albuterol sulfate and ipratropium bromide. He is also getting Pulmicort and formoterol. We will continue to follow up should he not be discharged. Time with Patient: Less than 30
[2022-08-06 12:43] LABS: African American GFR (CKD) >90 (>60 ml/min/1.73 sqM); Anion Gap 5 mmol/L; Blood Urea Nitrogen 26 mg/dL (9-20); Carbon Dioxide 32 mmol/L (22-30); Chloride 102 mmol/L (98-107); Glucose 131 mg/dL (74-99); Magnesium 1.6 mg/dL (1.6-2.3); Non-African American GFR(CKD) >90 (>60 ml/min/1.73 sqM); Potassium 3.5 mmol/L (3.5-5.1); Sodium 139 mmol/L (137-145)
[2022-08-06] MEDS: POTASSIUM CHLORIDE ER 20 MEQ TAB.ER PO SCH ×2 (12:56→15:51)
[2022-08-06] MEDS: MAGNESIUM SULFATE-D5W PMX 1 GM in DEXTROSE/WATER 1 100ML.BAG IVPB SCH ×2 (12:57→15:45)
[2022-08-06] MEDS ORDERED: traMADol 50 MG TAB PO STA (13:00)
[2022-08-06] MEDS: MAGNESIUM OXIDE 400 MG TAB PO SCH ×3 (13:13→21:31)
[2022-08-06] MEDS: hydrOXYzine HCL 25 MG TAB PO SCH (20:48)
[2022-08-06] MEDS: ATORVASTATIN 80 MG TAB PO SCH (20:50)
[2022-08-06] MEDS: DONEPEZIL 5 MG TAB PO SCH (20:50)
[2022-08-07] MEDS: LORazepam 1 MG/0.5 ML VIAL IV PRN ×2 (02:15→07:44)
[2022-08-07 02:19] VITALS: TEMP 98.4
[2022-08-07] MEDS: IPRATROPIUM-ALBUTEROL 3 ML NEB INHALATION PRN ×3 (04:01→11:22)
[2022-08-07 04:42] LABS: Magnesium 1.9 mg/dL (1.6-2.3); Potassium 4.4 mmol/L (3.5-5.1)
[2022-08-07] MEDS: BUDESONIDE 0.5 MG/2 ML NEBU INHALATION SCH (07:14)
[2022-08-07] MEDS: FORMOTEROL FUMARATE 20 MCG/2 ML NEBU INHALATION SCH (07:28)
[2022-08-07] MEDS: ENOXAPARIN 40 MG/0.4 ML SYRINGE SQ SCH (07:48)
[2022-08-07] MEDS: FAMOTIDINE 20 MG TAB PO SCH (07:49)
[2022-08-07] MEDS: FUROSEMIDE 40 MG TAB PO SCH (07:49)
[2022-08-07] MEDS: CITALOPRAM HYDROBROMIDE 20 MG TAB PO SCH (07:49)
[2022-08-07] MEDS: METOPROLOL SUCCINATE (ER) 25 MG TAB.ER.24H PO SCH (07:49)
[2022-08-07] MEDS: guaiFENesin 600 MG TABLET.ER PO SCH (07:50)
[2022-08-07] MEDS: ASPIRIN 81 MG PO SCH (07:50)
[2022-08-07] MEDS: GABAPENTIN 300 MG CAP PO SCH (07:50)
[2022-08-07] MEDS: FERROUS SULFATE 325 MG TAB PO SCH (07:50)
[2022-08-07] MEDS: MAGNESIUM OXIDE 400 MG TAB PO SCH (07:50)
[2022-08-07] MEDS: allopurinoL 300 MG TAB PO SCH (07:51)
[2022-08-07] MEDS: predniSONE 20 MG TAB PO SCH (07:54)
[2022-08-07 07:58] VITALS: BP 155/88; RESP 26
[2022-08-07] MEDS ORDERED: LORazepam 1 MG TAB PO STA (11:07)
[2022-08-07 11:23] VITALS: PULSE 76
--- NOTE | 2022-08-07 11:50 | P.PN ---
Subjective Progress Note Date: 08/07/22 Principal diagnosis: Respiratory failure. Reevaluated today on 07/31/22, patient remains in the ICU, he is now on Precedex at 0.8 mcg/kg/h, he is on BiPAP 35% 09/16. Seems to be more comfortable, tolerating BiPAP much better, chest x-ray continues to show left upper lobe infiltrate, however seems to be slightly better, and suspect some component of mild interstitial edema. Today the patient seems to be a bit better compared to yesterday, nonetheless he remains quite ill, and prognosis remains very guarded. WBC count is 4.4 hemoglobin is 8.3 electrolytes are normal except for slightly elevated sodium of 145, hence we'll change the main IV fluid to D5W and on it at a low rate. Patient remains on antibiotics, Zosyn, his also on steroids, and Lasix 40 mg IV push every 12 hours. Patient is on multiple bronchodilators. Reevaluated today on 08/01/22, patient remains in the ICU, intermittently on BiPAP, he is now on IPAP 09/16 last 35%, and when he is off BiPAP she goes on 3 L nasal cannula. Surprisingly the patient is doing much better today, chest x-ray is showing improvement, patient remains on Precedex at 0.5 mcg/kg/h. He is on IV fluid in the form of D5W which I have changed to D5 45 at 50 mL per hour, remains on Lasix every 12. Patient remains on Zosyn he is alert, he seems to be much more comfortable today, and in less respiratory distress. WBC count is 3.1 hemoglobin is 8.6 electrolytes are normal renal profile is normal Reevaluated today on 08/02/22, patient remains in the ICU, he is now on 3 L nasal cannula, BiPAP is at bedside, patient seems to be doing great clinically, his chest x-ray is showing significant improvement in his left upper lobe infiltrate and improvement in his interstitial edema. Patient seems definitely more comfortable today than he has felt over the last few days. WBC count today is 2.6 with Jesu is 9.4 electrolytes are normal except for low potassium being addressed accordingly, renal profile is normal. Patient remains on multiple medications including Pulmicort updrafts, Perforomist updrafts, DuoNeb updrafts, patient is off Precedex, and today I plan to transfer the patient out of the ICU to regular medical floor. Patient remains on Lasix at 40 mg IV push with all hours, we will transition that to oral Lasix. And will taper down the dose of methylprednisolone today. Again I plan to transfer the patient out of the ICU today to a regular medical floor Reevaluated today on 08/03/22, patient remains as an overflow in the ICU. He is still on 3 L nasal cannula, doing great, intermittently on BiPAP, no major issues overnight, continues to improve, awaiting to be transferred to the regular medical floor. Labs today are basically unremarkable including normal CBC and normal basic metabolic profile, normal renal profile Progress note dated 08/04/2022. This is a 66-year-old male with history of severe COPD. He was admitted back on July 25, with a COPD exacerbation, and suspected left-sided pneumonia. He alternates between BiPAP, with settings of 12/6 and 35%, with a nasal cannula, at 3 L. He is not receiving any IV fluids. The patient is someone who could be transferred out to the general medical floor. Clinically, he appears to be relatively stable. No new labs today. The labs from August 03 are reviewed. Chest x-ray from August 02 shows elevated left diaphragm, with left basilar opacity, likely representing atelectasis. There is improved and resolving left suprahilar infiltrate. Blood cultures are negative. Progress note dated 08/05/2022. 66-year-old male, seen in room 266. He has a history of severe COPD. Yesterday, he was on 3 L, and wanted to be discharged home. The patient is now on BiPAP at 12/6 and 35%. According to the nurse, he is spending more time BiPAP, and left time on nasal prongs. Probably, it would not be whiteside to send him home, but rather than to a rehab facility. He is not receiving any IV fluids. This morning he is on BiPAP. When not on BiPAP, he is on 3 L. No new labs today. The patient apparently has told the nurse that he has BiPAP at home. I've asked the nurse to call his to ask that question. Progress note dated 08/06/2022. 66-year-old male again seen in room 266. The patient has a history of severe COPD. The patient is currently on BiPAP, with settings of 12/6, and 35%. When he is not on BiPAP, he is on 3 L of oxygen. We spoke to his primary care provider today, who states that the plan is to try to get him discharged to a local detention. He is currently not receiving any IV fluids. The patient's last blood work done on August 03. Chest x-ray today shows chronic elevation of the left diaphragm, and atelectatic changes at the bases. Progress note dated 08/07/2022. 66-year-old male seen in room 266. He has a history of severe COPD. He also suffers some chronic hypoxemic respiratory failure. Currently, on 3 L of nasal oxygen, sitting up in the chair, next is bed. When on BiPAP, settings included an IPAP of 12, EPAP of 6, and 35%. The patient is planning to be discharged to a local detention today. He's not receiving any IV fluids. He will follow- up with me in the office. The patient's potassium is 4.4. Magnesium is 1.9. Objective - Vital Signs Vital signs: Vital Signs Temp 98.4 F 08/07/22 02:00 Pulse 76 08/07/22 11:22 Resp 26 H 08/07/22 07:57 BP 155/88 08/07/22 07:57 Pulse Ox 99 08/07/22 07:17 FiO2 35 08/07/22 11:25 Intake & Output 08/06/22 08/07/22 08/07/22 18:59 06:59 18:59 Output Total 625 1150 325 Balance -625 -1150 -325 Output: Urine 625 1150 325 Other: Voiding Method Indwelling Catheter Urinal Urinal # Voids 3 # Bowel Movements 1 - Exam No acute distress, currently on BiPAP therapy. On 3 L, his saturations are 96 %. HEENT examination is grossly unremarkable. Neck supple. Full range of motion. No adenopathy thyromegaly or neck vein distention. Cardiovascular examination reveals regular rhythm rate. S1-S2 normal. No S3 or S4. No discernible murmur noted. Heart sounds are distant. Heart rate 76 bpm. Lungs reveal scattered diffuse rhonchi, and mild expiratory wheezes. No crackles. Breath sounds equal bilaterally, but diminished throughout. Abdomen soft bowel sounds are heard. No masses or tenderness. Extremities are intact. No cyanosis clubbing or edema. Skin is without rash or lesion. Neurologic examination is brief but nonfocal. - Labs CBC & Chem 7: 08/03/22 10:28 08/07/22 03:20 Labs: Abnormal Lab Results - Last 24 Hours (Table) 08/06/22 Range/Units 11:29 Carbon Dioxide 32 H (22-30) mmol/L BUN 26 H (9-20) mg/dL Glucose 131 H (74-99) mg/dL Calcium 7.0 L (8.4-10.2) mg/dL Assessment and Plan Assessment: Acute on chronic hypoxemic respiratory failure secondary to extensive left-sided pneumonia. Acute exacerbation of severe COPD. Acute kidney injury. Chronic hypoxemic respiratory failure. Previous history of coronavirus infection. CAD with previous stent placement. PVOD. Previous history of heavy tobacco use. Benign essential hypertension. Hyperlipidemia. History of rheumatoid arthritis. Severe ischemic cardiomyopathy. Plan: Plan dated 08/04/2022. The patient continues on Zosyn, bronchodilators, and corticosteroids. The patient also continues on GI and DVT prophylaxis. The patient would like to be discharged home. That may or may not occur. The patient could certainly be discharged out of the intensive care unit. Labs, x-rays, and medications are all reviewed. Prognosis is certainly guarded. The patient does have severe COPD. He apparently finally quit smoking in December 2021. Plan dated 08/05/2022. The patient would likely be a better candidate for discharge to a rehab facility rather than going home. I believe that if he goes home, he'll be back in the hospital in a day or so. Anyway, I did express that to the airport planner. Labs, x-rays, and medications are reviewed. Labs, x-rays, and medications are reviewed. We will continue to follow and make recommendations along the way. Prognosis is certainly guarded. Plan dated 08/06/2022. I spoke to the patient's primary doctor today, who stated that the patient will be discharged to a rehab facility/detention. Hopefully, there, he can get BiPAP therapy. It does not appear that he has BiPAP or CPAP at home. Labs, x- rays, and medications are reviewed. On 3 L, saturations are in the mid 90s. Medications are reviewed. Everything appears appropriate. He's been switched to prednisone 40 mg a day. He is getting updrafts with albuterol sulfate and ipratropium bromide. He is also getting Pulmicort and formoterol. We will co jerome to follow up should he not be discharged. Plan dated 08/07/2022. The patient may be discharged today. I did speak to Dr. Woodson yesterday about the patient. Labs, x-rays, and medications are reviewed. The patient will likely go to a detention/rehab facility, where he can receive nocturnal BiPAP therapy. The settings should be the same, i.e. IPAP 12, EPAP 6, and 35%. We've not on BiPAP, the patient should be on oxygen at 3 L. He'll follow-up with me in the office. Medications are reviewed. He is on appropriate medications. Prognosis is guarded. Time with Patient: Less than 30
== END 2022-08-07 11:30 | DRG 871 ==
LOC: EC 11:19 → 2SICU 12:43 → 3SCARD 14:19 → 2SICU 15:08
PROVIDERS: ADMIT Family Medicine; ATTEND Family Medicine
PROC: 5A09357 Assistance with Respiratory Ventilation, Less than 24 Consecutive Hours, Continuous Positive Airway Pressure (ICD-10-PCS; principal; 2022-07-25)
PROC: 30233N1 Transfusion of Nonautologous Red Blood Cells into Peripheral Vein, Percutaneous Approach (ICD-10-PCS; 2022-07-27)
DX: A41.9 Sepsis, unspecified organism (principal); G93.41 Metabolic encephalopathy; J96.21 Acute and chronic respiratory failure with hypoxia; J18.9 Pneumonia, unspecified organism; E44.0 Moderate protein-calorie malnutrition; N17.9 Acute kidney failure, unspecified; C79.51 Secondary malignant neoplasm of bone; M87.851 Other osteonecrosis, right femur; C34.11 Malignant neoplasm of upper lobe, right bronchus or lung; J98.11 Atelectasis; I11.0 Hypertensive heart disease with heart failure; I50.9 Heart failure, unspecified; J43.9 Emphysema, unspecified; M06.9 Rheumatoid arthritis, unspecified; I73.9 Peripheral vascular disease, unspecified; Z95.820 Peripheral vascular angioplasty status with implants and grafts; D63.8 Anemia in other chronic diseases classified elsewhere; Z99.81 Dependence on supplemental oxygen; I25.10 Atherosclerotic heart disease of native coronary artery without angina pectoris; E78.5 Hyperlipidemia, unspecified; E87.5 Hyperkalemia; E83.42 Hypomagnesemia; I25.5 Ischemic cardiomyopathy; M10.9 Gout, unspecified; K44.9 Diaphragmatic hernia without obstruction or gangrene; N62 Hypertrophy of breast; G89.29 Other chronic pain; L40.9 Psoriasis, unspecified; M19.90 Unspecified osteoarthritis, unspecified site; M54.50 Low back pain, unspecified; M25.552 Pain in left hip; E87.6 Hypokalemia; R91.1 Solitary pulmonary nodule; K29.70 Gastritis, unspecified, without bleeding; K57.30 Diverticulosis of large intestine without perforation or abscess without bleeding; K64.8 Other hemorrhoids; M25.551 Pain in right hip; Z20.822 Contact with and (suspected) exposure to COVID-19; Z96.643 Presence of artificial hip joint, bilateral; Z86.14 Personal history of Methicillin resistant Staphylococcus aureus infection; Z28.311 Partially vaccinated for COVID-19; Z87.891 Personal history of nicotine dependence; Z95.5 Presence of coronary angioplasty implant and graft; Z86.718 Personal history of other venous thrombosis and embolism; Z98.1 Arthrodesis status; Z86.16 Personal history of COVID-19; Z79.891 Long term (current) use of opiate analgesic; Z79.82 Long term (current) use of aspirin; Z79.899 Other long term (current) drug therapy; Z79.51 Long term (current) use of inhaled steroids; Z68.20 Body mass index [BMI] 20.0-20.9, adult
CPT/HCPCS: 36415; 71045; 71275; 80048; 80053; 80202; 82565; 83540; 83550; 83605; 83735; 83880; 84100; 84132; 84145; 84484; 85025; 85027; 85379; 85610; 85730; 86850; 86900; 86901; 86920; 87040; 87502; 87635; 93005; 94640; 94660; 96361; 96365; 96372; 96375; 99284

== ENCOUNTER 2022-08-07 17:44 | Observation (INO) | payer MEDICARE ==
[2022-08-07 18:23] LABS: Basophils % (A) 1 %; Eosinophils % (A) 0 %; HGB 11.8 gm/dL (13.0-17.5); Hypochromasia Moderate; Lymphocytes # (A) 0.2 k/uL (1.0-4.8); Lymphocytes % (A) 3 %; MCH 32.2 pg (25.0-35.0); MCHC 32.6 g/dL (31.0-37.0); MCV 98.7 fL (80.0-100.0); Macrocytosis Slight; Mean Platelet Volume 8.2; Monocytes # (A) 0.2 k/uL (0-1.0); Monocytes % (A) 3 %; Neutrophils # (A) 5.9 k/uL (1.3-7.7); Neutrophils % (A) 92 %; Platelet Count 154 k/uL (150-450); RBC 3.65 m/uL (4.30-5.90); RDW 15.5 % (11.5-15.5); WBC 6.4 k/uL (3.8-10.6)
[2022-08-07 18:30] LABS: ALT 34 U/L (4-49); AST 33 U/L (17-59); African American GFR (CKD) >90 (>60 ml/min/1.73 sqM); Albumin 3.9 g/dL (3.5-5.0); Alkaline Phosphatase 74 U/L (38-126); Anion Gap 10 mmol/L; Blood Urea Nitrogen 29 mg/dL (9-20); Carbon Dioxide 31 mmol/L (22-30); Chloride 97 mmol/L (98-107); Glucose 150 mg/dL (74-99); Non-African American GFR(CKD) >90 (>60 ml/min/1.73 sqM); Potassium 5.9 mmol/L (3.5-5.1); Sodium 138 mmol/L (137-145); Total Bilirubin 0.6 mg/dL (0.2-1.3); Total Protein 6.6 g/dL (6.3-8.2)
[2022-08-07] MEDS ORDERED: LORazepam 2 MG/ML INJ IV STA (18:54)
[2022-08-07 19:04] LABS: INR 0.9 (<1.2); Partial Thromboplastin Time 21.2 sec (22.0-30.0); Prothrombin Time 9.8 sec (9.0-12.0)
--- NOTE | 2022-08-07 19:12 | XR ---
EXAMINATION: XR chest 1V portable DATE AND TIME: 08/07/2022 6:38 PM CLINICAL INDICATION: PHH; difficulty breathing TECHNIQUE: AP upright portable COMPARISON: 08/06/2022 FINDINGS: Left hemidiaphragm remains elevated, as seen on the prior study. The lungs appear to be clear bilaterally. However, the left lower lobe beneath the level of the left hemidiaphragm cannot be evaluated. The pleural spaces are negative. The cardiac silhouette is not enlarged. The remainder of the mediastinal silhouette is unremarkable. The skeletal structures and soft tissues are negative for acute findings. IMPRESSION: Elevated left hemidiaphragm redemonstrated.
[2022-08-07 20:05] LABS: VBG PH 7.45 (7.31-7.41)
[2022-08-07] MEDS ORDERED: IPRATROPIUM-ALBUTEROL 3 ML NEB INHALATION STA (20:18)
--- NOTE | 2022-08-07 20:21 | ED ---
SOB HPI - General Chief Complaint: Shortness of Breath Stated Complaint: SOB Time Seen by Provider: 08/07/22 17:48 Source: patient, EMS Mode of arrival: EMS Limitations: physical limitation (Severe dyspnea) - History of Present Illness Initial Comments: This patient is a 66-year-old man here with complaint that he is very short of breath. The patient has history of COPD. He had been admitted in the hospital for 14 days being discharged approximately 4-5 hours ago. He had gone to the [facility] for further care. The patient states that he became acutely short of breath there. The facility reportedly has BiPAP that did not relieve the patient's symptoms. EMS placed him on their negative inspiratory pressure mask and he was feeling a little better. Patient denies chest pain. He has not noted any other symptoms. MD Complaint: shortness of breath, cough -: hour(s) Severity scale (1-10): 0 Consistency: constant Improves With: nothing Worsens With: lying flat Known History Of: COPD, congestive heart failure Associated Symptoms: denies other symptoms Treatments Prior to Arrival: NIPPV - Related Data Home Oxygen Therapy: Yes Home Medications Medication Instructions Recorded Confirmed Ipratropium-Albuterol Nebulize 3 ml INHALATION RT-QID 06/18/19 08/07/22 [Duoneb 0.5 mg-3 mg/3 ml Soln] Albuterol Sulfate [Proair Hfa] 2 puff INHALATION RT-Q4H PRN 07/30/19 08/07/22 Ferrous Sulfate [Iron] 325 mg PO DAILY 09/12/19 08/07/22 Donepezil [Aricept] 5 mg PO HS 11/03/19 08/07/22 allopurinoL [Zyloprim] 300 mg PO DAILY 11/03/19 08/07/22 Aspirin [Adult Low Dose Aspirin EC] 81 mg PO DAILY 05/21/20 08/07/22 Citalopram Hydrobromide [CeleXA] 20 mg PO DAILY 05/21/20 08/07/22 Atorvastatin Calcium [Lipitor] 80 mg PO HS 04/02/21 08/07/22 Famotidine [Pepcid] 20 mg PO DAILY 04/02/21 08/07/22 Metoprolol Succinate [Toprol XL] 25 mg PO DAILY 04/02/21 08/07/22 hydrOXYzine HCL [Atarax] 25 mg PO HS 05/19/22 08/07/22 Acetaminophen Tab [Tylenol] 650 mg PO Q4HR PRN 07/11/22 08/07/22 predniSONE See Taper PO DIRECTED 08/07/22 08/07/22 Previous Rx's Medication Instructions Recorded Budesonide [Pulmicort] 0.5 mg INHALATION RT-BID ml 08/05/22 Enoxaparin [Lovenox] 40 mg SQ DAILY each 08/05/22 Formoterol Fumarate [Perforomist] 20 mcg INHALATION RT-BID ml 08/05/22 Furosemide [Lasix] 40 mg PO BID@0900,1600 tab 08/05/22 Gabapentin [Neurontin] 300 mg PO TID #9 cap 08/05/22 Ipratropium-Albuterol Nebulize 3 ml INHALATION RT-Q4H PRN each 08/05/22 [Duoneb 0.5 mg-3 mg/3 ml Soln] Sodium Chloride 0.65% Nasal [Deep 2 spray NASAL QID PRN ml 08/05/22 Sea (Saline)] guaiFENesin [Mucinex] 600 mg PO Q12HR tab 08/05/22 Magnesium Oxide [Mag-Oxide] 400 mg PO TID #1 tablet 08/06/22 LORazepam [Ativan] 0.5 mg SL Q6H PRN 3 Days #12 tab 08/08/22 Allergies Allergy/AdvReac Type Severity Reaction Status Date / Time No Known Allergies Allergy Verified 08/07/22 20:51 Review of Systems ROS Statement: Those systems with pertinent positive or pertinent negative responses have been documented in the HPI. ROS Other: All systems not noted in ROS Statement are negative. Constitutional: Denies: fever, chills Respiratory: Reports: cough, dyspnea, wheezes. Denies: hemoptysis Cardiovascular: Denies: chest pain, palpitations, orthopnea, edema, syncope Gastrointestinal: Denies: abdominal pain, vomiting, diarrhea, melena, hematochezia Genitourinary: Denies: dysuria Musculoskeletal: Denies: back pain Skin: Denies: rash Neurological: Denies: headache, weakness Past Medical History Past Medical History: Blood Disorder, Coronary Artery Disease (CAD), Heart Bebeto lure, COPD, Deep Vein Thrombosis (DVT), GERD/Reflux, Hyperlipidemia, Hypertension, Osteoarthritis (OA), Respiratory Disorder, Rheumatoid Arthritis (RA), Skin Disorder, Vascular Disorder Additional Past Medical History / Comment(s): Cardiomyopathy, home oxygen at 4L/NC ATC lately, slightly elevated L diaphragm, multiple dislocations of left total hip, psoriasis, gout, hx of DVT both legs, chronic pain/lowervback and bilateral hip pain, current chronic small open left ankle wound now healed, past pancytopenia/febrile neutropenia/fever thought possibly d/t Humira, PAD, gout, chronic anemia, occasional dysphagia, severe protein calorie malnutrition, small bowel ileus, nephrolithiasis, chronic R hip avascular necresis, recent R shoulder pain, . History of Any Multi-Drug Resistant Organisms: MRSA Date of last positivie culture/infection: 06/09/17 MDRO Source:: Left Ankle Past Surgical History: Back Surgery, Heart Catheterization, Heart Catheterization With Stent, Hernia Repair, Joint Replacement, Orthopedic Surgery Additional Past Surgical History / Comment(s): Aortagrams with run-offs, bilateral leg atherectomies/stenting/PTBA, PCI with stents, lower back fusion/anuel, L ankle screw, L total hip arthroplasty/then removal and hardware inserted, Rebekah fundaplication, EGDs, colonoscopies. Past Anesthesia/Blood Transfusion Reactions: Previous Problems w/ Anesthesia Additional Past Anesthesia/Blood Transfusion Reaction / Comment(s): "HAS CONFUSION AND DISORIENTATION POST ANESTHESIA " on occasion. Date of Last Stent Placement:: [address] [facility] Past Psychological History: No Psychological Hx Reported Smoking Status: Never smoker - Past Family History Mother Family Medical History: No Reported History Additional Family Medical History / Comment(s): Father History Unknown: Yes Family Medical History: Unable to Obtain General Exam General appearance: alert, in distress Head exam: Present: atraumatic, normocephalic Eye exam: Present: normal appearance. Absent: scleral icterus, conjunctival injection ENT exam: Present: normal oropharynx Neck exam: Present: normal inspection Respiratory exam: Present: respiratory distress, wheezes. Absent: rales, rhonchi, stridor Cardiovascular Exam: Present: regular rate, normal rhythm, normal heart sounds. Absent: systolic murmur, diastolic murmur, rubs, gallop GI/Abdominal exam: Present: soft. Absent: distended, tenderness, guarding, rebound, rigid, mass Extremities exam: Present: normal inspection, normal capillary refill. Absent: pedal edema, calf tenderness Back exam: Present: normal inspection. Absent: CVA tenderness (R), CVA tenderness (L) Neurological exam: Present: alert Skin exam: Present: warm, dry, intact, normal color. Absent: rash Course Vital Signs 08/07/22 08/07/22 08/07/22 17:48 18:11 18:18 Pulse Rate 90 Respiratory 32 H 32 H Rate Blood Pressure 159/95 O2 Sat by Pulse 100 Oximetry Fraction of 35 Inspired Oxygen (FIO2) 08/07/22 08/07/22 08/07/22 20:29 20:37 23:17 Pulse Rate 64 67 Respiratory Rate Blood Pressure O2 Sat by Pulse Oximetry Fraction of 35 Inspired Oxygen (FIO2) 08/08/22 08/08/22 08/08/22 02:00 03:00 03:24 Pulse Rate Respiratory Rate Blood Pressure 151/79 141/72 O2 Sat by Pulse Oximetry Fraction of 35 Inspired Oxygen (FIO2) 08/08/22 08/08/22 08/08/22 04:22 06:11 07:39 Pulse Rate 61 59 L Respiratory 24 22 Rate Blood Pressure 136/69 140/61 O2 Sat by Pulse 99 99 Oximetry Fraction of 35 Inspired Oxygen (FIO2) 08/08/22 08/08/22 08/08/22 07:49 11:24 11:45 Pulse Rate 59 L 70 74 Respiratory 24 Rate Blood Pressure 150/64 O2 Sat by Pulse 96 96 Oximetry Fraction of Inspired Oxygen (FIO2) 08/08/22 12:05 Pulse Rate 74 Respiratory Rate Blood Pressure O2 Sat by Pulse Oximetry Fraction of Inspired Oxygen (FIO2) Medical Decision Making - Medical Decision Making 's patient is a 66-year-old man who basically is end-stage COPD patient. He had been [facility] today and then became dyspneic. He states that the BiPAP there was not helping him. EMS transported him back here and he has markedly improved following BiPAP here and a treatment. I did call the assisted to discuss sending patient back there. They state that there is not currently his waterworks supervisor who knows the BiPAP machine well to optimize the settings for this patient and they're concerned that he will end up coming right back here. They state that there is the waterworks supervisor there during the day shift. In light of this, will admit patient to observation overnight with the expectation of going back to the assisted while at waterworks supervisor there and can optimize his settings for the patient - Lab Data Result diagrams: 08/07/22 18:12 08/07/22 18:12 Lab Results 08/07/22 08/07/22 08/07/22 Range/Units 18:12 18:12 18:12 WBC 6.4 (3.8-10.6) k/uL RBC 3.65 L (4.30-5.90) m/uL Hgb 11.8 L (13.0-17.5) gm/dL Hct 36.0 L (39.0-53.0) % MCV 98.7 (80.0-100.0) fL MCH 32.2 (25.0-35.0) pg MCHC 32.6 (31.0-37.0) g/dL RDW 15.5 (11.5-15.5) % Plt Count 154 (150-450) k/uL MPV 8.2 Neutrophils % 92 % Lymphocytes % 3 % Monocytes % 3 % Eosinophils % 0 % Basophils % 1 % Neutrophils # 5.9 (1.3-7.7) k/uL Lymphocytes # 0.2 L (1.0-4.8) k/uL Monocytes # 0.2 (0-1.0) k/uL Eosinophils # 0.0 (0-0.7) k/uL Basophils # 0.0 (0-0.2) k/uL Hypochromasia Moderate Macrocytosis Slight PT 9.8 (9.0-12.0) sec INR 0.9 (<1.2) APTT 21.2 L (22.0-30.0) sec VBG pH (7.31-7.41) VBG pCO2 (37-51) mmHg VBG HCO3 (24-28) mmol/L Sodium 138 (137-145) mmol/L Potassium 5.9 H (3.5-5.1) mmol/L Chloride 97 L (98-107) mmol/L Carbon Dioxide 31 H (22-30) mmol/L Anion Gap 10 mmol/L BUN 29 H (9-20) mg/dL Creatinine 0.71 (0.66-1.25) mg/dL Est GFR (CKD-EPI)AfAm >90 (>60 ml/min/1.73 sqM) Est GFR (CKD-EPI)NonAf >90 (>60 ml/min/1.73 sqM) Glucose 150 H (74-99) mg/dL Plasma Lactic Acid Juan (0.7-2.0) mmol/L Calcium 8.0 L (8.4-10.2) mg/dL Magnesium 2.0 (1.6-2.3) mg/dL Total Bilirubin 0.6 (0.2-1.3) mg/dL AST 33 (17-59) U/L ALT 34 (4-49) U/L Alkaline Phosphatase 74 (38-126) U/L Troponin I (0.000-0.034) ng/mL NT-Pro-B Natriuret Pep pg/mL Total Protein 6.6 (6.3-8.2) g/dL Albumin 3.9 (3.5-5.0) g/dL 08/07/22 08/07/22 08/07/22 Range/Units 18:12 18:12 18:12 WBC (3.8-10.6) k/uL RBC (4.30-5.90) m/uL Hgb (13.0-17.5) gm/dL Hct (39.0-53.0) % MCV (80.0-100.0) fL MCH (25.0-35.0) pg MCHC (31.0-37.0) g/dL RDW (11.5-15.5) % Plt Count (150-450) k/uL MPV Neutrophils % % Lymphocytes % % Monocytes % % Eosinophils % % Basophils % % Neutrophils # (1.3-7.7) k/uL Lymphocytes # (1.0-4.8) k/uL Monocytes # (0-1.0) k/uL Eosinophils # (0-0.7) k/uL Basophils # (0-0.2) k/uL Hypochromasia Macrocytosis PT (9.0-12.0) sec INR (<1.2) APTT (22.0-30.0) sec VBG pH (7.31-7.41) VBG pCO2 (37-51) mmHg VBG HCO3 (24-28) mmol/L Sodium (137-145) mmol/L Potassium (3.5-5.1) mmol/L Chloride (98-107) mmol/L Carbon Dioxide (22-30) mmol/L Anion Gap mmol/L BUN (9-20) mg/dL Creatinine (0.66-1.25) mg/dL Est GFR (CKD-EPI)AfAm (>60 ml/min/1.73 sqM) Est GFR (CKD-EPI)NonAf (>60 ml/min/1.73 sqM) Glucose (74-99) mg/dL Plasma Lactic Acid Juan 1.3 (0.7-2.0) mmol/L Calcium (8.4-10.2) mg/dL Magnesium (1.6-2.3) mg/dL Total Bilirubin (0.2-1.3) mg/dL AST (17-59) U/L ALT (4-49) U/L Alkaline Phosphatase (38-126) U/L Troponin I 0.088 H* (0.000-0.034) ng/mL NT-Pro-B Natriuret Pep 3880 pg/mL Total Protein (6.3-8.2) g/dL Albumin (3.5-5.0) g/dL 08/07/22 Range/Units 19:56 WBC (3.8-10.6) k/uL RBC (4.30-5.90) m/uL Hgb (13.0-17.5) gm/dL Hct (39.0-53.0) % MCV (80.0-100.0) fL MCH (25.0-35.0) pg MCHC (31.0-37.0) g/dL RDW (11.5-15.5) % Plt Count (150-450) k/uL MPV Neutrophils % % Lymphocytes % % Monocytes % % Eosinophils % % Basophils % % Neutrophils # (1.3-7.7) k/uL Lymphocytes # (1.0-4.8) k/uL Monocytes # (0-1.0) k/uL Eosinophils # (0-0.7) k/uL Basophils # (0-0.2) k/uL Hypochromasia Macrocytosis PT (9.0-12.0) sec INR (<1.2) APTT (22.0-30.0) sec VBG pH 7.45 H (7.31-7.41) VBG pCO2 48 (37-51) mmHg VBG HCO3 33 H (24-28) mmol/L Sodium (137-145) mmol/L Potassium (3.5-5.1) mmol/L Chloride (98-107) mmol/L Carbon Dioxide (22-30) mmol/L Anion Gap mmol/L BUN (9-20) mg/dL Creatinine (0.66-1.25) mg/dL Est GFR (CKD-EPI)AfAm (>60 ml/min/1.73 sqM) Est GFR (CKD-EPI)NonAf (>60 ml/min/1.73 sqM) Glucose (74-99) mg/dL Plasma Lactic Acid Juan (0.7-2.0) mmol/L Calcium (8.4-10.2) mg/dL Magnesium (1.6-2.3) mg/dL Total Bilirubin (0.2-1.3) mg/dL AST (17-59) U/L ALT (4-49) U/L Alkaline Phosphatase (38-126) U/L Troponin I (0.000-0.034) ng/mL NT-Pro-B Natriuret Pep pg/mL Total Protein (6.3-8.2) g/dL Albumin (3.5-5.0) g/dL - EKG Data -: EKG Interpreted by Ne EKG shows normal: sinus rhythm, axis (Normal), intervals (QRS duration prolonged at 138 ms, consistent with intraventricular conduction delay.) Rate: normal (Rate 76 bpm) Disposition Clinical Impression: COPD exacerbation Disposition: ADMITTED IP TO THIS HOSP Condition: Fair Is patient prescribed a controlled substance at d/c from ED?: No
[2022-08-07] MEDS ORDERED: NALOXONE 0.4 MG/ML 1 ML VIAL IVP PRN (20:48)
[2022-08-07] MEDS ORDERED: IPRATROPIUM-ALBUTEROL 3 ML NEB INHALATION PRN (21:15)
[2022-08-08] MEDS: IPRATROPIUM-ALBUTEROL 3 ML NEB INHALATION SCH ×4 (07:39→19:41)
[2022-08-08] MEDS ORDERED: predniSONE 20 MG TAB PO SCH (09:00)
[2022-08-08] MEDS ORDERED: MORPHINE SULFATE 4 MG/ML SYRINGE IVP STA (12:05)
--- NOTE | 2022-08-08 13:44 | P.CONS ---
History of Present Illness - Reason for Consult Consult date: 08/08/22 [facility] Requesting physician: Neda Mcleod - Chief Complaint Shortness of breath - History of Present Illness This patient is a 66-year-old man here with complaint that he is very short of breath. The patient has history of COPD. He had been admitted in the hospital for 14 days then was discharged to rehab for approximately 4-5 hours, then brought back to the emergency room. The patient states that he became acutely short of breath there. The facility reported that BiPAP did not relieve the patient's symptoms. EMS placed him on their negative inspiratory pressure mask and he was feeling a little better. Patient denies chest pain. He has not noted any other symptoms. Review of Systems Constitutional: Reports fatigue, Reports weakness Cardiovascular: Reports shortness of breath Respiratory: Reports cough, Reports home oxygen Gastrointestinal: Denies nausea, Denies vomiting Neurological: Denies confusion Past Medical History Past Medical History: Blood Disorder, Coronary Artery Disease (CAD), Heart Failure, COPD, Deep Vein Thrombosis (DVT), GERD/Reflux, Hyperlipidemia, Hyperten rodney, Osteoarthritis (OA), Respiratory Disorder, Rheumatoid Arthritis (RA), Skin Disorder, Vascular Disorder Additional Past Medical History / Comment(s): Cardiomyopathy, home oxygen at 4L/NC ATC lately, slightly elevated L diaphragm, multiple dislocations of left total hip, psoriasis, gout, hx of DVT both legs, chronic pain/lowervback and bilateral hip pain, current chronic small open left ankle wound now healed, past pancytopenia/febrile neutropenia/fever thought possibly d/t Humira, PAD, gout, chronic anemia, occasional dysphagia, severe protein calorie malnutrition, small bowel ileus, nephrolithiasis, chronic R hip avascular necresis, recent R shoulder pain, . History of Any Multi-Drug Resistant Organisms: MRSA Year Discovered:: 06/09/17 MDRO Source:: Left Ankle Past Surgical History: Back Surgery, Heart Catheterization, Heart Catheterization With Stent, Hernia Repair, Joint Replacement, Orthopedic Surgery Additional Past Surgical History / Comment(s): Aortagrams with run-offs, bilateral leg atherectomies/stenting/PTBA, PCI with stents, lower back fusion/anuel, L ankle screw, L total hip arthroplasty/then removal and hardware inserted, Rebekah fundaplication, EGDs, colonoscopies. Past Anesthesia/Blood Transfusion Reactions: Previous Problems w/ Anesthesia Additional Past Anesthesia/Blood Transfusion Reaction / Comm: "HAS CONFUSION AND DISORIENTATION POST ANESTHESIA " on occasion. Date of Last Stent Placement:: 2018 [facility] Past Psychological History: No Psychological Hx Reported Smoking Status: Never smoker - Past Family History Mother Family Medical History: No Reported History Additional Family Medical History / Comment(s): Father History Unknown: Yes Family Medical History: Unable to Obtain Medications and Allergies Home Medications Medication Instructions Recorded Confirmed Type Ipratropium-Albuterol Nebulize 3 ml INHALATION RT-QID 06/18/19 08/07/22 History [Duoneb 0.5 mg-3 mg/3 ml Soln] Albuterol Sulfate [Proair Hfa] 2 puff INHALATION RT-Q4H PRN 07/30/19 08/07/22 History Ferrous Sulfate [Iron] 325 mg PO DAILY 09/12/19 08/07/22 History Donepezil [Aricept] 5 mg PO HS 11/03/19 08/07/22 History allopurinoL [Zyloprim] 300 mg PO DAILY 11/03/19 08/07/22 History Aspirin [Adult Low Dose Aspirin EC] 81 mg PO DAILY 05/21/20 08/07/22 History Citalopram Hydrobromide [CeleXA] 20 mg PO DAILY 05/21/20 08/07/22 History Atorvastatin Calcium [Lipitor] 80 mg PO HS 04/02/21 08/07/22 History Famotidine [Pepcid] 20 mg PO DAILY 04/02/21 08/07/22 History Metoprolol Succinate [Toprol XL] 25 mg PO DAILY 04/02/21 08/07/22 History hydrOXYzine HCL [Atarax] 25 mg PO HS 05/19/22 08/07/22 History Acetaminophen Tab [Tylenol] 650 mg PO Q4HR PRN 07/11/22 08/07/22 History Budesonide [Pulmicort] 0.5 mg INHALATION RT-BID ml 08/05/22 08/07/22 Rx Enoxaparin [Lovenox] 40 mg SQ DAILY each 08/05/22 08/07/22 Rx Formoterol Fumarate [Perforomist] 20 mcg INHALATION RT-BID ml 08/05/22 08/07/22 Rx Furosemide [Lasix] 40 mg PO BID@0900,1600 tab 08/05/22 08/07/22 Rx Gabapentin [Neurontin] 300 mg PO TID #9 cap 08/05/22 08/07/22 Rx Ipratropium-Albuterol Nebulize 3 ml INHALATION RT-Q4H PRN each 08/05/22 08/07/22 Rx [Duoneb 0.5 mg-3 mg/3 ml Soln] Sodium Chloride 0.65% Nasal [Deep 2 spray NASAL QID PRN ml 08/05/22 08/07/22 Rx Sea (Saline)] guaiFENesin [Mucinex] 600 mg PO Q12HR tab 08/05/22 08/07/22 Rx Magnesium Oxide [Mag-Oxide] 400 mg PO TID #1 tablet 08/06/22 08/07/22 Rx predniSONE See Taper PO DIRECTED 08/07/22 08/07/22 History LORazepam [Ativan] 0.5 mg SL Q6H PRN 3 Days #12 tab 08/08/22 Rx Allergies Allergy/AdvReac Type Severity Reaction Status Date / Time No Known Allergies Allergy Verified 08/07/22 20:51 Physical Exam Vitals: Vital Signs Pulse Resp BP Pulse Ox FiO2 08/08/22 12:05 74 08/08/22 11:45 74 96 08/08/22 11:24 70 24 150/64 96 08/08/22 07:49 59 L 08/08/22 07:39 59 L 35 08/08/22 06:11 61 22 140/61 99 08/08/22 04:22 24 136/69 99 08/08/22 03:24 35 08/08/22 03:00 141/72 08/08/22 02:00 151/79 08/07/22 23:17 35 08/07/22 20:37 67 08/07/22 20:29 64 08/07/22 18:18 32 H 08/07/22 18:11 35 08/07/22 17:48 90 32 H 159/95 100 Intake and Output 08/07/22 08/08/22 08/08/22 22:59 06:59 14:59 Other: Weight 54.431 kg General: Well developed. Cachectic, Chronically ill appearing, in acute respiratory distress HEENT: Head is atraumatic, Mucus membranes dry CV: Heart regular in rate and rhythm positive S1 and S2. Peripheral pulses equal. 2/4 Lungs: Tchypneic with wheezes rales. Respirations labored. Abdomen/GI: Soft. No guarding, rigidity, or abdominal tenderness. Musculoskeletal/ Extremities: GALLOWAY, no joint deformity or swelling. No gross atrophy. + generalized weakness Vascular: Radial pulses equal. 2/4. Skin: Warm and dry, multiple bruises to bilateral upper arms Neurologic: Awake, alert and oriented times 3. CN II-XII grossly intact. No focal deficits. Psychiatric: Appropriate mood and affect. Results CBC & Chem 7: 08/07/22 18:12 08/07/22 18:12 Labs: Abnormal Lab Results - Last 24 Hours (Table) 08/07/22 08/07/22 08/07/22 Range/Units 18:12 18:12 18:12 RBC 3.65 L (4.30-5.90) m/uL Hgb 11.8 L (13.0-17.5) gm/dL Hct 36.0 L (39.0-53.0) % Lymphocytes # 0.2 L (1.0-4.8) k/uL APTT 21.2 L (22.0-30.0) sec VBG pH (7.31-7.41) VBG HCO3 (24-28) mmol/L Potassium 5.9 H (3.5-5.1) mmol/L Chloride 97 L (98-107) mmol/L Carbon Dioxide 31 H (22-30) mmol/L BUN 29 H (9-20) mg/dL Glucose 150 H (74-99) mg/dL Calcium 8.0 L (8.4-10.2) mg/dL Troponin I (0.000-0.034) ng/mL 08/07/22 08/07/22 Range/Units 18:12 19:56 RBC (4.30-5.90) m/uL Hgb (13.0-17.5) gm/dL Hct (39.0-53.0) % Lymphocytes # (1.0-4.8) k/uL APTT (22.0-30.0) sec VBG pH 7.45 H (7.31-7.41) VBG HCO3 33 H (24-28) mmol/L Potassium (3.5-5.1) mmol/L Chloride (98-107) mmol/L Carbon Dioxide (22-30) mmol/L BUN (9-20) mg/dL Glucose (74-99) mg/dL Calcium (8.4-10.2) mg/dL Troponin I 0.088 H* (0.000-0.034) ng/mL Abdominal x-ray: report reviewed Assessment and Plan Assessment: Symptoms * Pain - score * Fatigue - * SOB - * Insomnia - * N/V - * Anxiety - * Depression - * Confusion - * Agitation - * Hallucinations - * Appetite/weight loss - * Dysphagia - * Constipation - * Incontinence - * Itch - Plan: Summary/Goals - Met with the patient and his in the emergency center. The patient states he does not want to go back to a rehab. He is concerned that he needs his BiPAP, and they do not know how to use it. He is aware that most rehabs to not accept BiPAP. Palliative care and Hospice philosophies and services explained to them. The patient understands that that there is no curative treatment available. Managing his symtoms the best we can is the best way to give him the best quality of life. He understand that his baseline falls each time he has an exacerbtion. The patient stated his goals are more focused on comfort. He wants to go home. He does not want to keep coming back and forth to the hospital. They would like a hospice informational meeting. Recommendations - Hospice informational meeting Advanced Directives - No Code Status - Full Code Thank you for this consult Jennifer Pedraza [facility] Pall[facility] [id number] Email: [email or web address] Time with Patient: Greater than 30
--- NOTE | 2022-08-08 15:10 | P.PN ---
Subjective Progress Note Date: 08/08/22 The patient is seen today 08/08/2022 in follow-up in the emergency department. He was discharged yesterday to an extended care facility and brought back on the same day. He is currently maintaining O2 saturations in the mid 90s on 6 L/m per nasal cannula. White count 6.4. Hemoglobin 11.8. Sodium 138. Potassium 5.9. Bicarb 31. BUN 29. Creatinine 0.71. Glucose 150. ProBNP 3880. Troponin 0.088. He was initiated on DuoNeb inhalations, Symbicort, prednisone Objective - Vital Signs Vital signs: Vital Signs Temp Pulse 74 08/08/22 12:05 Resp 24 08/08/22 11:24 BP 150/64 08/08/22 11:24 Pulse Ox 96 08/08/22 11:45 FiO2 35 08/08/22 07:39 Intake & Output 08/07/22 08/08/22 08/08/22 18:59 06:59 18:59 Weight 54.431 kg - Exam GENERAL EXAM: Alert, pleasant 66-year-old male, on 6 L high flow nasal cannula, fairly comfortable in no apparent distress. HEAD: Normocephalic. EYES: Normal reaction of pupils, equal size. NOSE: Clear with pink turbinates. THROAT: No erythema or exudates. NECK: No masses, no JVD. CHEST: No chest wall deformity. LUNGS: Equal air entry with bilateral end expiratory wheeze, diminished. CVS: S1 and S2 normal with no audible murmur, regular rhythm. ABDOMEN: No hepatosplenomegaly, normal bowel sounds, no guarding or rigidity. SPINE: No scoliosis or deformity SKIN: No rashes CENTRAL NERVOUS SYSTEM: No focal deficits, tone is normal in all 4 extremities. EXTREMITIES: There is no peripheral edema. No clubbing, no cyanosis. Per ipheral pulses are intact. - Labs CBC & Chem 7: 08/07/22 18:12 08/07/22 18:12 Labs: Abnormal Lab Results - Last 24 Hours (Table) 08/07/22 08/07/22 08/07/22 Range/Units 18:12 18:12 18:12 RBC 3.65 L (4.30-5.90) m/uL Hgb 11.8 L (13.0-17.5) gm/dL Hct 36.0 L (39.0-53.0) % Lymphocytes # 0.2 L (1.0-4.8) k/uL APTT 21.2 L (22.0-30.0) sec VBG pH (7.31-7.41) VBG HCO3 (24-28) mmol/L Potassium 5.9 H (3.5-5.1) mmol/L Chloride 97 L (98-107) mmol/L Carbon Dioxide 31 H (22-30) mmol/L BUN 29 H (9-20) mg/dL Glucose 150 H (74-99) mg/dL Calcium 8.0 L (8.4-10.2) mg/dL Troponin I (0.000-0.034) ng/mL 08/07/22 08/07/22 Range/Units 18:12 19:56 RBC (4.30-5.90) m/uL Hgb (13.0-17.5) gm/dL Hct (39.0-53.0) % Lymphocytes # (1.0-4.8) k/uL APTT (22.0-30.0) sec VBG pH 7.45 H (7.31-7.41) VBG HCO3 33 H (24-28) mmol/L Potassium (3.5-5.1) mmol/L Chloride (98-107) mmol/L Carbon Dioxide (22-30) mmol/L BUN (9-20) mg/dL Glucose (74-99) mg/dL Calcium (8.4-10.2) mg/dL Troponin I 0.088 H* (0.000-0.034) ng/mL Assessment and Plan Assessment: Acute on chronic hypoxemic respiratory failure secondary to COPD exacerbation with recent left-sided pneumonia. Acute exacerbation of severe COPD. Acute kidney injury. Chronic hypoxemic respiratory failure. Previous history of coronavirus infection. CAD with previous stent placement. PVOD. Previous history of heavy tobacco use. Benign essential hypertension. Hyperlipidemia. History of rheumatoid arthritis. Severe ischemic cardiomyopathy. Plan: The patient was seen and evaluated Continue DuoNeb inhalations, Symbicort, prednisone Recommend palliative care consult We'll continue to follow ans make further recommendations based on his clinical status I have personally seen and examined the patient, performed the documentation and the assessment and plan as written. Number of minutes spent on the visit: 10.
[2022-08-08] MEDS: LORazepam 1 MG TAB SUBLINGUAL PRN (15:13)
[2022-08-08] MEDS: MORPHINE CONC SOLN 10mg/0.5mL ORAL SYRG SL PRN ×2 (15:13→19:07)
--- NOTE | 2022-08-08 16:32 | P.DS ---
Providers Date of admission: 08/07/22 20:48 Expected date of discharge: 08/08/22 Attending physician: David Woodson Consults: 08/08/22 08:45 Consult to Palliative Care Routine Consulting Provider: Jennifer Pedraza Consult Reason/Comments: End stage COPD Do you want consulting provider notified?: Yes Primary care physician: David Woodson [facility] Course: Patient and family have decided to take patient home with hospice. BiPAP arranged as per hospice. Please refer to yesterday's discharge summary for further details. The impression and plan of care has been dictated as directed. : I performed a history and examination of this patient, discussed the same with the dictator. I agree with the dictator's note ,documented as a scribe. Any additional findings or plans will be noted. Plan - Discharge Summary New Discharge Prescriptions: New LORazepam [Ativan] 0.5 mg SL Q6H PRN 3 Days #12 tab PRN Reason: Anxiety Discontinued ALPRAZolam [Xanax] 0.5 mg PO Q8HR PRN #9 tab PRN Reason: Anxiety No Action Ipratropium-Albuterol Nebulize [Duoneb 0.5 mg-3 mg/3 ml Soln] 3 ml INHALATION RT-QID Albuterol Sulfate [Proair Hfa] 2 puff INHALATION RT-Q4H PRN PRN Reason: Shortness Of Breath Ferrous Sulfate [Iron] 325 mg PO DAILY Donepezil [Aricept] 5 mg PO HS allopurinoL [Zyloprim] 300 mg PO DAILY Citalopram Hydrobromide [CeleXA] 20 mg PO DAILY Aspirin [Adult Low Dose Aspirin EC] 81 mg PO DAILY hydrOXYzine HCL [Atarax] 25 mg PO HS Furosemide [Lasix] 40 mg PO BID@0900,1600 tab Formoterol Fumarate [Perforomist] 20 mcg INHALATION RT-BID ml Budesonide [Pulmicort] 0.5 mg INHALATION RT-BID ml Metoprolol Succinate [Toprol XL] 25 mg PO DAILY Famotidine [Pepcid] 20 mg PO DAILY Atorvastatin Calcium [Lipitor] 80 mg PO HS Acetaminophen Tab [Tylenol] 650 mg PO Q4HR PRN PRN Reason: Fever And/ Or Pain Sodium Chloride 0.65% Nasal [Deep Sea (Saline)] 2 spray NASAL QID PRN ml PRN Reason: Dry Nasal Passages Ipratropium-Albuterol Nebulize [Duoneb 0.5 mg-3 mg/3 ml Soln] 3 ml INHALATION RT-Q4H PRN each PRN Reason: Shortness Of Breath Or Wheezing Enoxaparin [Lovenox] 40 mg SQ DAILY each guaiFENesin [Mucinex] 600 mg PO Q12HR tab Gabapentin [Neurontin] 300 mg PO TID #9 cap Magnesium Oxide [Mag-Oxide] 400 mg PO TID #1 tablet predniSONE See Taper PO DIRECTED Discharge Medication List Ipratropium-Albuterol Nebulize [Duoneb 0.5 mg-3 mg/3 ml Soln] 3 ml INHALATION RT-QID 06/18/19 [History] Albuterol Sulfate [Proair Hfa] 2 puff INHALATION RT-Q4H PRN 07/30/19 [History] Ferrous Sulfate [Iron] 325 mg PO DAILY 09/12/19 [History] Donepezil [Aricept] 5 mg PO HS 11/03/19 [History] allopurinoL [Zyloprim] 300 mg PO DAILY 11/03/19 [History] Aspirin [Adult Low Dose Aspirin EC] 81 mg PO DAILY 05/21/20 [History] Citalopram Hydrobromide [CeleXA] 20 mg PO DAILY 05/21/20 [History] Atorvastatin Calcium [Lipitor] 80 mg PO HS 04/02/21 [History] Famotidine [Pepcid] 20 mg PO DAILY 04/02/21 [History] Metoprolol Succinate [Toprol XL] 25 mg PO DAILY 04/02/21 [History] hydrOXYzine HCL [Atarax] 25 mg PO HS 05/19/22 [History] Acetaminophen Tab [Tylenol] 650 mg PO Q4HR PRN 07/11/22 [History] Budesonide [Pulmicort] 0.5 mg INHALATION RT-BID ml 08/05/22 [Rx] Enoxaparin [Lovenox] 40 mg SQ DAILY each 08/05/22 [Rx] Formoterol Fumarate [Perforomist] 20 mcg INHALATION RT-BID ml 08/05/22 [Rx] Furosemide [Lasix] 40 mg PO BID@0900,1600 tab 08/05/22 [Rx] Gabapentin [Neurontin] 300 mg PO TID #9 cap 08/05/22 [Rx] Ipratropium-Albuterol Nebulize [Duoneb 0.5 mg-3 mg/3 ml Soln] 3 ml INHALATION RT-Q4H PRN each 08/05/22 [Rx] Sodium Chloride 0.65% Nasal [Deep Sea (Saline)] 2 spray NASAL QID PRN ml 08/05/22 [Rx] guaiFENesin [Mucinex] 600 mg PO Q12HR tab 08/05/22 [Rx] Magnesium Oxide [Mag-Oxide] 400 mg PO TID #1 tablet 08/06/22 [Rx] predniSONE See Taper PO DIRECTED 08/07/22 [History] LORazepam [Ativan] 0.5 mg SL Q6H PRN 3 Days #12 tab 08/08/22 [Rx] Follow up Appointment(s)/Referral(s): David Woodson DO [Primary Care Provider] - [facility] [NON-STAFF] - Patient Instructions/Handouts: COPD (Chronic Obstructive Pulmonary Disease) (DC), Anxiety (ED) Discharge Disposition: HOME WITH HOSPICE
[2022-08-08] MEDS ORDERED: LORazepam 1 MG TAB PO STA (17:32)
[2022-08-08 19:37] VITALS: BP 125/77; PULSE 68; RESP 22; TEMP 98.6
[2022-08-08] MEDS ORDERED: SYMBICORT 160-4.5 MCG INHALER INHALATION SCH (20:00)
== END 2022-08-08 18:15 | disposition hospice, home (50) ==
LOC: EC 17:44 → 3SCARD 20:48
PROVIDERS: ADMIT Family Medicine; ATTEND Family Medicine
DX: J96.21 Acute and chronic respiratory failure with hypoxia (principal); J44.1 Chronic obstructive pulmonary disease with (acute) exacerbation; J18.9 Pneumonia, unspecified organism; I25.10 Atherosclerotic heart disease of native coronary artery without angina pectoris; I11.0 Hypertensive heart disease with heart failure; I50.9 Heart failure, unspecified; K21.9 Gastro-esophageal reflux disease without esophagitis; M10.9 Gout, unspecified; M06.9 Rheumatoid arthritis, unspecified; N17.9 Acute kidney failure, unspecified; M54.50 Low back pain, unspecified; M25.552 Pain in left hip; M25.551 Pain in right hip; G89.29 Other chronic pain; I25.5 Ischemic cardiomyopathy; D64.9 Anemia, unspecified; I73.9 Peripheral vascular disease, unspecified; E43 Unspecified severe protein-calorie malnutrition; E78.5 Hyperlipidemia, unspecified; Z79.899 Other long term (current) drug therapy; Z86.718 Personal history of other venous thrombosis and embolism; Z99.81 Dependence on supplemental oxygen; Z96.642 Presence of left artificial hip joint; Z98.1 Arthrodesis status; Z87.891 Personal history of nicotine dependence; Z68.1 Body mass index [BMI] 19.9 or less, adult
CPT/HCPCS: 96374; 96375; 99285; 36415; 94660 ×2; 94640; 93005; 83880; 80053; 82803; 83605; 83735; 84484; 85025; 85610; 85730; 71045; G0378 ×2; J2060; J2270; J7512